=== PATIENT | female | born 1960 | race Caucasian/White ===

== ENCOUNTER 2019-11-18 15:44 | Emergency (ER) | payer OTHER, SELFPAY ==
--- NOTE | ~2019-11-18 | XR_ITS ---
EXAMINATION: XR chest 1V portable DATE: 11/18/2019 16:06 INDICATION: Altered mental status. TECHNIQUE: frontal view of the chest was obtained. COMPARISON: Chest radiograph dated 07/14/2019 FINDINGS: Skinfold projects over the lateral left mid to lower lung zone. No focal airspace opacities, pulmonar y edema, pleural effusion or pneumothorax. The cardiomediastinal silhouette is normal. Visualized bon es and soft tissues are unremarkable. IMPRESSION: 1. No acute cardiopulmonary disease. Reviewed, dictated and finalized at location A.
--- NOTE | ~2019-11-18 | CT_ITS ---
EXAMINATION: CT brain wo con DATE: 11/18/2019 16:06 INDICATION: Altered mental status TECHNIQUE: Computed tomography (CT) of the head was performed without intravenous contrast. Sagittal and coronal reconstructions were performed. The mA was adjusted according to patient size. Iterative reconstruction technique was employed. The dose-length product was 681.00 mGy-cm. COMPARISON: head CT dated 05/08/2019 FINDINGS: No acute intracranial hemorrhage, acute infarction or abnormal extra axial fluid collection. Ventricl es are normal and symmetric. No mass/mass effect. There is mild scattered white matter hypoattenuatio n consistent with chronic small vessel ischemic disease. The orbits, paranasal sinuses and mastoid ai r cells are normal. IMPRESSION: 1. Mild scattered white matter hypoattenuation consistent with chronic small vessel ischemic disease. No acute intracranial process. Reviewed, dictated and finalized at location A. IMPRESSION: 1. Mild scattered white matter hypoattenuation consistent with chronic small ve ssel ischemic disease. No acute intracranial process.
--- NOTE | 2019-11-18 15:45 | ECG_ITS ---
Measurements Intervals Calder Rate: 79 P: 78 DE: 132 QRS: 68 QRSD: 105 T: 73 QT: 386 QTc: 445 Interpretive Statements SINUS RHYTHM NORMAL ECG Electronically Signed On 11-19-2019 15:15:21 CDT by Reggie Benedict D.O.
[2019-11-18 15:53] VITALS: BP 158/111; PULSE 72; RESP 14; O2SAT 99
[2019-11-18 15:54] LABS: Glucose Point of Care 100 (65-105)
[2019-11-18 16:01] LABS: Basophils Absolute Auto 0.03 K/mm3 (0.00-0.10); Basophils Percent Auto 0.4 % (0.0-1.0); Eosinophils Absolute Auto 0.45 K/mm3 (0.02-0.50); Eosinophils Percent Auto 6.7 % (1.0-6.0); Hematocrit 33.4 % (35.0-49.0); Hemoglobin 11.3 g/dL (12.0-15.0); Immature Granulocyte Absolute 0.02 K/mm3 (0.00-0.00); Immature Granulocyte Percent A 0.3 % (0.0-0.0); Lymphocytes Absolute Auto 1.54 K/mm3 (1.10-4.50); Mean Corpuscular HGB Conc 33.8 g/dL (32.0-36.0); Mean Corpuscular Hemoglobin 31.2 pg (27.0-31.0); Mean Corpuscular Volume 92.3 fL (78.0-102.0); Mean Platelet Volume 10.4 fl (9.2-11.8); Monocytes Absolute Auto 0.46 K/mm3 (0.10-0.90); Monocytes Percent Auto 6.9 % (2.0-11.0); Neutrophils Absolute Auto 4.2 K/mm3 (1.7-7.2); Neutrophils Percent Auto 62.7 % (50.0-70.0); Platelet Count Result 193 K/mm3 (150-420); Red Blood Count 3.62 M/mm3 (4.20-5.40); White Blood Count 6.7 K/mm3 (4.8-10.8)
--- NOTE | 2019-11-18 16:01 | ED.GENADULT ---
HPI - General Adult General Chief complaint: Neuro Symptoms/Deficit Stated complaint: unconsious Time Seen by Provider: 11/18/19 15:45 History of Present Illness HPI narrative: Sunita is a 59-year-old woman with a past medical history of COPD, tobacco abuse, methamphetamine abuse, PAD, hypothyroidism, ARDS, (seizures that occurred after ARDS), multiple TIA that was brought into the emergency department unconscious by her daughter. She had diffuse whole body pain all through the night. It was getting worse so she asked her daughter to take her to the hospital. When getting into the car her eyes rolled into the back of her head and she went minimally conscious This was 20min before arriving to the ED (1525). Last methamphetamine abuse was last night per daughter. Related Data Home Medications Medication Instructions Recorded Confirmed thiamine mononitrate (vit B1) 100 mg PO DAILY 06/09/19 11/18/19 naproxen 500 mg tablet 500 mg PO BID 09/22/19 11/18/19 trazodone 100 mg tablet 100 mg PO .hs tablet 09/22/19 11/18/19 atorvastatin 40 mg tablet 40 mg PO DAILY 11/16/19 11/18/19 Allergies Allergy/AdvReac Type Severity Reaction Status Date / Time sulfamethoxazole Allergy Mild JOINT Verified 11/16/19 10:28 SWELLING clarithromycin Allergy Unknown Swelling Verified 11/16/19 10:28 gabapentin Allergy Unknown Joint pain Verified 11/16/19 10:28 trimethoprim Allergy Unknown JOINT Verified 11/16/19 10:28 SWELLING codeine AdvReac Unknown NAUSEA - Verified 11/16/19 10:28 CAN TAKE LORTAB Review of Systems Review of Systems: ROS unobtainable: Yes unobtainable due to mental status [facility] Past Medical History Medical History Chemical dependency Failure to thrive in adult Family History Family History Sibling Patient's sister is in good health Patient's brother is in good health Mother Family history of malignant neoplasm of breast in first degree relative, Onset Age: 26 Patient's mother is Father Patient's father is in good health Other Family history of alcoholism Family history of lung disease Family history of malignant neoplasm of male breast Family history of migraine headaches Family history of obesity Hypertension Social History Social History Smoking status: Former smoker Tobacco type: cigarettes Second hand tobacco smoke exposure: Yes Smoking end date: 08/02/15 Alcohol intake: never Substance use: current Substance use type: methamphetamine Exam Const: General: ill appearing Nutritional Appearance: thin Other: Alert and oriented x 0. Minimally responsive. HENMT: Other: Eyes were moving around rhythmically from side to side. If you yelled her name, occasionally she might look at you. Her tongue was protruding and moving side to side. Multiple abraisons on face. Eyes: Conjunctivae: conjunctivae normal Other: See above Neck: Neck: normal visual inspection Chest: Chest palpation & inspection: normal inspection of the chest Resp: Other: Clear breath sounds bilaterally, No tachypnea, no coughing Cardio: Rate: regular rate Rhythm: regular rhythm GI: GI Palp: Yes Soft to palpation and No Guarding due to palpation present (GI) Auscultation: normal bowel sounds Urinary Catheter: Urinary Catheter: patent and draining Skin: General skin exam: normal color Other: several scabbed over abraisons Neuro: Other: A&Ox0, Will open eye to verbal command, incomprehensible sounds, will squeeze hands on command Extrem: General: normal to inspection Psych: Appearance: disheveled Course Course Emergency Course: Sunita was brought back immediately. Ordered labs as below, CT head, and EKG as well as CXR. EXAMINATION: CT brain wo con DATE: 11/18/2019 16:06 INDICATION: Alter
[2019-11-18 16:09] LABS: Add Urine Microscopic? NO; Appearance Urine Clear (Clear); Bilirubin Urine Negative (Negative); Blood Urine Negative (Negative); Color Urine Yellow (Yellow); Glucose Urine UA Negative (Negative); Ketones Urine Negative (Negative); Leukocyte Esterase Ur Negative (Negative); Nitrate Urine Negative (Negative); Protein Urine Negative (Negative); Specific Grav Ur >= 1.030 (1.010-1.020); Urobilinogen Urine 0.2 mg/dL (0.2-1.0)
[2019-11-18 16:20] LABS: Prothrombin Time 10.5 Seconds (9.64-11.0)
[2019-11-18 16:23] LABS: Alanine Aminotransferase 34 U/L (14-59); Albumin Level 3.7 g/dL (3.4-5.0); Alkaline Phosphatase 94 U/L (46-116); Anion Gap 13.9 mmol/L (7-16); Aspartate Amino Transferase 48 U/L (15-37); Bilirubin,Total 0.4 mg/dL (0.00-1.00); Blood Urea Nitrogen 27 mg/dL (7-18); Calcium 8.8 mg/dL (8.5-10.1); Carbon Dioxide 26 mmol/L (21-32); Chloride 107 mmol/L (98-108); Creatine Kinase 791 U/L (26-192); Estimated Glomerular Filt Rate 47; Glucose 110 mg/dL (70-99); Lactic Acid 0.5 mmol/L (0.4-2.0); Lipase 120 U/L (73-393); Osmolality Calculated 302 mOsm/kg (285-295); Potassium 3.9 mmol/L (3.5-5.1); Sodium 143 mmol/L (136-145); Total Protein 5.9 g/dL (6.4-8.2)
[2019-11-18 16:27] LABS: Pregnancy On Board Control POS; Urine Pregnancy Test Negative
[2019-11-18 16:28] LABS: BNP 34 pg/mL (0-100)
[2019-11-18 16:28] LABS: Specific Gravity Ur > 1.030 (1.010-1.035)
[2019-11-18 16:30] LABS: Ammonia < 10 umol/L (11-32); Ethanol < 3 mg/dL (0-6); Troponin I < 0.02 ng/mL (0.00-0.056)
[2019-11-18 16:38] LABS: D Dimer 1.13 mg/L (0.19-0.50)
[2019-11-18 16:42] LABS: Amphetamine Screen Urine Positive (Negative); Barbiturate Screen Urine Negative (Negative); Benzodiazepines Screen Urine Negative (Negative); Cannabinoid Screen Urine Negative (Negative); Cocaine Screen Urine Negative (Negative); Methadone Screen Urine Negative (Negative); Opiate Screen Urine Negative (Negative); Phencyclidine Screen Urine Negative (Negative)
[2019-11-18 16:43] VITALS: BP 166/72; PULSE 68; RESP 14; O2SAT 99
[2019-11-18 16:59] LABS: Base Excess ABG -2.2 mmol/L (0-2); Oxygen Content ABG 13.4 %vol (16.0-22.0); Oxyhemoglobin 78.5 % (94-100); PCO2 ABG 35.8 mmHg (35-45); PO2 ABG 42.7 mmHg (80-90); Total Hemoglobin 12.2 g/dL; pH ABG 7.41 (7.35-7.45)
[2019-11-18 17:01] LABS: Device ROOM AIR; Modified Allen's Test Unable to perform; Site Drawn LEFT RADIAL
[2019-11-18 17:30] VITALS: BP 174/98; PULSE 74; O2SAT 99
[2019-11-18] MEDS: HALOPERIDOL LACTATE 5 MG/ML VIAL 2.5 MG IV PUSH (17:58)
[2019-11-18] MEDS: LORAZEPAM INJ 2 MG/ML VIAL 1 MG IV PUSH (18:01)
--- NOTE | 2019-11-18 18:08 | PC.NURSE ---
CHANGE IN STATUS: RN CALLED INTO ROOM D/T PATIENT NOW CLIMBING OUT OF BED, DISCONNECTED FROM MONITOR. PT SCREAMING THAT SHE WANTS TO TALK TO JOCE, HER . PT IS NOW ALERT X 3 GCS 15 - STATES THAT SHE WANTS TO SIGN OUT AMA - ERP TALKS TO PATIENT ABOUT THE URGENCY OF NEEDING NEUROLOGY CONSULT - CALL PLACED TO DAUGHTER FOR CONSULT - ATIVAN AND HALDOL GIVEN FOR PATIENT AGITATION -
[2019-11-18 18:45] VITALS: BP 148/105; PULSE 96; O2SAT 99
== END 2019-11-18 19:15 | disposition short-term general hospital (02) ==
PROVIDERS: Emergency Provider Family Medicine
DX: F15.129 Other stimulant abuse with intoxication, unspecified (principal)
CPT/HCPCS: 36415; 36600; 70450; 71045; 80053; 80307; 81003; 81025; 82140; 82550; 82805; 83605; 83690; 83880; 84484; 85025; 85380; 85610; 87040; 93005; 96374; 96375; 99283; 99285; J1630; J2060

== ENCOUNTER 2020-01-16 14:48 | Outpatient (CLI) | payer OTHER, SELFPAY ==
--- NOTE | ~2020-01-16 | XR_ITS ---
EXAMINATION:XR cervical spine 4-5V DATE: 01/16/2020 15:22 INDICATION: Cervical radiculopathy TECHNIQUE: AP, lateral, lateral swimmers and odontoid views of the cervical spine are provided. COMPARISON: 12/07/2014 FINDINGS: The odontoid is intact. No fracture is identified. Again noted are changes of anterior fusi on at C6-7. There is severe loss of intervertebral disc space height at C5-6. Moderate facet osteoar thritis is noted at C7-T1. There is mild loss of intervertebral disc space height at C4-5. Prevertebr al soft tissues are normal. IMPRESSION: 1. Anterior fusion at C6-7 and severe loss of intervertebral disc space height at C5-6 without acute findings or significant interval change. Reviewed, dictated and finalized at location F.
== END 2020-01-16 14:49 | disposition home or self-care (01) ==
PROVIDERS: PCP Internal Medicine; Visit Provider Physician Assistant
DX: M54.12 Radiculopathy, cervical region (principal); Z98.1 Arthrodesis status
CPT/HCPCS: 72050

== ENCOUNTER 2020-11-27 19:05 | Emergency (ER) | payer OTHER, SELFPAY ==
[2020-11-27 19:15] VITALS: BP 185/110; PULSE 100; RESP 17; TEMP 37.2; O2SAT 99
[2020-11-27 19:33] VITALS: BP 185/110; PULSE 100; RESP 17; TEMP 37.2; O2SAT 99
--- NOTE | 2020-11-27 19:50 | ED.SKABFB ---
HPI - Skin/Abscess/Foreign Bdy General Chief complaint: Extremity Injury, Upper Stated complaint: left wrist pain and mersa on face Source: patient, RN notes reviewed and old records reviewed Mode of arrival: ambulatory Limitations: no limitations History of Present Illness HPI narrative: 60 year old female presents to express care with complaint of bruising and swelling of skin to the inner aspect of her left wrist with full mobility of her wrist and left hand. Patient states that she is unaware of any injury to her left wrist. Patient states that the inner aspect of her left wrist is tender to palpation rates her pain as 7/10 described as throbbing. Patient also voices concern about numerous scabbed lesions on her face around and on top of her nasal region voices history of MRSA. Patient is tearful voices history of former alcohol abuse, states has been dry for 23 years. Admits to long history of methamphetamine use states last used 7 days ago. States that her daughter 2 weeks ago from drug overdose. Patient's blood pressure is elevated states that she has not taken her medication today, has long history of hypertension also. MD complaint: lesion (facial lesions) and other (pain and swelling left inner wrist) Onset (ago): week(s) (1) Tetanus up to date: unsure Location: face Severity: severe Severity scale (1-10): 1 (to left inner wrist) Quality: other (throbbing) Pain Consistency: constant Relieving factors: none Exacerbating factors: movement Associated symptoms: denies other symptoms Treatments prior to arrival: none Related Data Home Medications Medication Instructions Recorded Confirmed thiamine mononitrate (vit B1) 100 mg PO DAILY 06/09/19 10/14/20 naproxen 500 mg tablet 500 mg PO BID 09/22/19 11/27/20 ergocalciferol (vitamin D2) 1,250 mcg PO DIRECTED 11/27/20 11/27/20 Allergies Allergy/AdvReac Type Severity Reaction Status Date / Time sulfamethoxazole Allergy Mild JOINT Verified 11/27/20 19:22 SWELLING clarithromycin Allergy Unknown Swelling Verified 11/27/20 19:22 gabapentin Allergy Unknown Joint pain Verified 11/27/20 19:22 trimethoprim Allergy Unknown JOINT Verified 11/27/20 19:22 SWELLING codeine AdvReac Unknown NAUSEA - Verified 11/27/20 19:22 CAN TAKE LORTAB Review of Systems Review of Systems: Narrative: CONSTITUTIONAL: Denies fever, chills, or sweats. EYES: Denies visual changes, redness, or discharge. ENT: Denies rhinorrhea, congestion, sore throat, or otalgia. CARDIOVASCULAR: Denies chest pain, palpitations, or edema. RESPIRATORY: Denies cough or dyspnea. GASTROINTESTINAL: Denies abdominal pain, nausea, vomiting, or diarrhea. GENITOURINARY: Denies dysuria or hematuria. SKIN: Positive for scabbed lesions to her face, around nasal region in various stages of healing, history of MRSA MUSCULOSKELETAL: Denies back pain, joint pain, or myalgia.positive swelling and bruising to left inner wrist, no warmth or any lesions noted, full ROM wrist NEUROLOGIC: Denies headache, numbness, or weakness. PSYCHIATRIC:Positive for anxiety or depression. All systems reviewed & are unremarkable except as noted in HPI and below PMFSH Past Medical History Medical History (Updated 12/06/20 @ 19:47 by Pretty Pierre NP) Anxiety and depression Chemical dependency Failure to thrive in adult Hypertension Hypothyroidism Pneumonia Pulmonary emphysema Surgical History Surgical History (Updated 12/06/20 @ 19:48 by Pretty Pierre NP) H/O neck surgery C6-7 fusion Hx of cholecystectomy Total knee replacement status Family History Family History (Updated 12/06/20 @ 12:08 by Pretty Pierre NP) Sibling Patient's sister is in good health Patient's brother is in good health Depression Mother Family history of malignant neoplasm of breast in first degree relative, Onset Age: 26 Patient's mother is Father Patient's father is in good health Other Family
== END 2020-11-27 20:11 | disposition home or self-care (01) ==
PROVIDERS: Emergency Provider Registered Nurse; PCP Internal Medicine
DX: S60.212A Contusion of left wrist, initial encounter (principal); X58.XXXA Exposure to other specified factors, initial encounter; L98.9 Disorder of the skin and subcutaneous tissue, unspecified; I10 Essential (primary) hypertension; E03.9 Hypothyroidism, unspecified; J43.9 Emphysema, unspecified
CPT/HCPCS: 99213; G0463

== ENCOUNTER 2021-01-26 17:42 | Emergency (ER) | payer OTHER, SELFPAY ==
--- NOTE | ~2021-01-26 | XR_ITS ---
EXAMINATION: XR femur LT min 2V DATE: 01/26/2021 18:21 INDICATION: Left thigh injury and pain. TECHNIQUE: 2 views of left femur on 4 radiographs were obtained. COMPARISON: None. FINDINGS: Bone alignment is normal. No fracture. There is mild osteoarthritis of left hip. There is a total left knee arthroplasty in near-anatomic alignment. No periprosthetic lucency to suggest loosen ing or infection. There is a small knee joint effusion. IMPRESSION: 1. Mild left hip osteoarthritis. 2. Total left knee arthroplasty in near-anatomic alignment. 3. Small left knee joint effusion. Reviewed, dictated and finalized at location A.
[2021-01-26 17:50] VITALS: BP 182/123; PULSE 105; RESP 16; TEMP 37.1; O2SAT 100
--- NOTE | 2021-01-26 18:28 | ED.GENADULT ---
HPI - General Adult General Chief complaint: Extremity Injury, Lower Stated complaint: knot on lt hip Related Data Home Medications Medication Instructions Recorded Confirmed naproxen 500 mg tablet 500 mg PO BID 09/22/19 01/26/21 ergocalciferol (vitamin D2) 1,250 mcg PO DIRECTED 11/27/20 01/26/21 Allergies Allergy/AdvReac Type Severity Reaction Status Date / Time sulfamethoxazole Allergy Mild JOINT Verified 01/26/21 18:00 SWELLING clarithromycin Allergy Unknown Swelling Verified 01/26/21 18:00 gabapentin Allergy Unknown Joint pain Verified 01/26/21 18:00 trimethoprim Allergy Unknown JOINT Verified 01/26/21 18:00 SWELLING codeine AdvReac Unknown NAUSEA - Verified 01/26/21 18:00 CAN TAKE LORTAB PMFSH Past Medical History Medical History (Updated 01/26/21 @ 18:33 by EARLENE Santiago) Anxiety and depression Chemical dependency COPD (chronic obstructive pulmonary disease) Diverticulosis Failure to thrive in adult Hypertension Hypothyroidism JULIAN (obstructive sleep apnea) Pancreatitis Peripheral neuropathy Pneumonia Pulmonary emphysema Pure hypercholesterolemia Seizures TIA (transient ischemic attack) Tracheostomy dependence Surgical History Surgical History (Updated 01/26/21 @ 18:33 by EARLENE Santiago) H/O neck surgery C6-7 fusion Hx of cholecystectomy Hx of tonsillectomy Secondary to sepsis/ARDS Total knee replacement status Family History Family History (Updated 12/06/20 @ 12:08 by Pretty Pierre NP) Sibling Patient's sister is in good health Patient's brother is in good health Depression Mother Family history of malignant neoplasm of breast in first degree relative, Onset Age: 26 Patient's mother is Father Patient's father is in good health Other Family history of alcoholism Family history of lung disease Family history of malignant neoplasm of male breast Family history of migraine headaches Family history of obesity Hypertension Social History Social History Smoking status: Current every day smoker Tobacco type: cigarettes Second hand tobacco smoke exposure: Yes Smoking end date: 08/02/15 Alcohol intake: never Substance use: current Substance use type: methamphetamine Gender identity (if verbalized by the patient): Female Exam Narrative: Exam Narrative: GENERAL: Well-appearing, well-nourished, and in no acute distress. HEAD: Normocephalic, atraumatic. EYES: PERRLA and EOMI. ENT: Nares clear, no rhinorrhea or epistaxis. Mucous membranes moist. NECK: Supple. No lymphadenopathy CHEST: Clear to auscultation. No respiratory distress. HEART: Regular rate and rhythm. No murmur heard. Normal peripheral pulses. ABDOMEN: Soft, nontender, nondistended, normal active bowel sounds. EXTREMITIES: Normal range of motion. No edema. SKIN: Warm, dry, no rash. NEURO: No focal deficits. Alert and oriented x3. Course Vital Signs Vital signs: Vital Signs Temperature 37.1 C 01/26/21 17:50 Pulse Rate 105 H 01/26/21 17:50 Respiratory Rate 16 01/26/21 17:50 Blood Pressure 182/123 H 01/26/21 17:50 Pulse Oximetry 100 01/26/21 17:50 Temperature 37.1 C 01/26/21 17:50 Pulse Rate 105 H 01/26/21 17:50 Respiratory Rate 16 01/26/21 17:50 Blood Pressure 182/123 H 01/26/21 17:50 Pulse Oximetry 100 01/26/21 17:50 Vital signs reviewed Blood pressure retaken manually was 130/98 Medical Decision Making Differential Diagnosis Differential Diagnosis: Differential diagnosis: Posterior hip pain, joint dysfunction, lumbar radiculopathy, impingement, fracture, hip dislocation, osteoarthritis, bursitis. Vital Signs Vital Signs: Vital Signs Temperature 37.1 C 01/26/21 17:50 Pulse Rate 105 H 01/26/21 17:50 Respiratory Rate 16 01/26/21 17:50 Blood Pressure 182/123 H 01/26/21 17:50 Pulse Oximetry 100 01/26/21 17:50
[2021-01-26 18:33] VITALS: BP 130/98
--- NOTE | 2021-01-26 18:35 | ED.GENADULT ---
HPI - General Adult General Chief complaint: Extremity Injury, Lower Stated complaint: knot on lt hip Time Seen by Provider: 01/26/21 18:35 Source: patient Mode of arrival: ambulatory Limitations: no limitations History of Present Illness HPI narrative: 60-year-old female patient presents to the [facility] with complaints of left hip pain for the past 2 and half weeks. Patient states she fell onto her left hip about 2 and half weeks ago and has had a knot there. Patient is able to walk and bear weight onto the left hip. Patient states she has tried ice for the first 3 days and then heat which the heat she felt like made it worse. Patient also reports that she has had an infection on her nose which she is supposed to see infectious disease for on February 06 but requesting an antibiotic for it. Patient states she was told it was MRSA. Related Data Home Medications Medication Instructions Recorded Confirmed naproxen 500 mg tablet 500 mg PO BID 09/22/19 01/26/21 ergocalciferol (vitamin D2) 1,250 mcg PO DIRECTED 11/27/20 01/26/21 Allergies Allergy/AdvReac Type Severity Reaction Status Date / Time sulfamethoxazole Allergy Mild JOINT Verified 01/26/21 18:00 SWELLING clarithromycin Allergy Unknown Swelling Verified 01/26/21 18:00 gabapentin Allergy Unknown Joint pain Verified 01/26/21 18:00 trimethoprim Allergy Unknown JOINT Verified 01/26/21 18:00 SWELLING codeine AdvReac Unknown NAUSEA - Verified 01/26/21 18:00 CAN TAKE LORTAB Review of Systems Review of Systems: Narrative: CONSTITUTIONAL: Denies fever, chills, or sweats. EYES: Denies visual changes, redness, or discharge. ENT: Denies rhinorrhea, congestion, sore throat, or otalgia. CARDIOVASCULAR: Denies chest pain, palpitations, or edema. RESPIRATORY: Denies cough or dyspnea. GASTROINTESTINAL: Denies abdominal pain, nausea, vomiting, or diarrhea. Positive left hip pain GENITOURINARY: Denies dysuria or hematuria. SKIN: Positive rash to nose, denies itching. MUSCULOSKELETAL: Denies back pain, joint pain, or myalgia. NEUROLOGIC: Denies headache, numbness, or weakness. PSYCHIATRIC: Denies anxiety or depression. [facility] Past Medical History Medical History Anxiety and depression Chemical dependency COPD (chronic obstructive pulmonary disease) Diverticulosis Failure to thrive in adult Hypertension Hypothyroidism JULIAN (obstructive sleep apnea) Pancreatitis Peripheral neuropathy Pneumonia Pulmonary emphysema Pure hypercholesterolemia Seizures TIA (transient ischemic attack) Tracheostomy dependence Surgical History Surgical History H/O neck surgery C6-7 fusion Hx of cholecystectomy Hx of tonsillectomy Secondary to sepsis/ARDS Total knee replacement status Family History Family History Sibling Patient's sister is in good health Patient's brother is in good health Depression Mother Family history of malignant neoplasm of breast in first degree relative, Onset Age: 26 Patient's mother is Father Patient's father is in good health Other Family history of alcoholism Family history of lung disease Family history of malignant neoplasm of male breast Family history of migraine headaches Family history of obesity Hypertension Social History Social History Smoking status: Current every day smoker Tobacco type: cigarettes Second hand tobacco smoke exposure: Yes Smoking end date: 08/02/15 Alcohol intake: never Substance use: current Substance use type: methamphetamine Gender identity (if verbalized by the patient): Female Comments At the time of my signature I agree with nursing past medical history, surgical, social, and family history. There is no relevant family history
== END 2021-01-26 18:53 | disposition home or self-care (01) ==
PROVIDERS: Emergency Provider Nurse Practitioner Family; PCP Internal Medicine
DX: S70.02XA Contusion of left hip, initial encounter (principal); W19.XXXA Unspecified fall, initial encounter; R21 Rash and other nonspecific skin eruption; F17.210 Nicotine dependence, cigarettes, uncomplicated; F41.9 Anxiety disorder, unspecified; F32.9 Major depressive disorder, single episode, unspecified; J44.9 Chronic obstructive pulmonary disease, unspecified; I10 Essential (primary) hypertension; E03.9 Hypothyroidism, unspecified; G47.33 Obstructive sleep apnea (adult) (pediatric); G62.9 Polyneuropathy, unspecified; Z86.711 Personal history of pulmonary embolism; E78.00 Pure hypercholesterolemia, unspecified; Z86.73 Personal history of transient ischemic attack (TIA), and cerebral infarction without residual deficits; Z93.0 Tracheostomy status; Z96.659 Presence of unspecified artificial knee joint
CPT/HCPCS: 73552; 99213; G0463

== ENCOUNTER 2021-05-08 10:53 | Outpatient (CLI) | payer OTHER, SELFPAY ==
--- NOTE | ~2021-05-08 | XR_ITS ---
XR cervical spine 4-5V DATE: 05/08/2021 11:16 INDICATION: Neck pain. Chronic left neck pain. No known injury. TECHNIQUE: AP, open-mouth, lateral, swimmer views COMPARISON: 01/16/2020 cervical spine FINDINGS: There is straightening of the cervical spine. C1 and C2 are normally aligned and the odontoid process is intact. There is 1.4 mm anterolisthesis at C3-4. There is mild degenerative disc disease at C4-5. There is severe degenerative disc disease and 1 mm retrolisthesis at C5-6. There is chronic fusion at the C6 and C7 vertebral bodies. No fracture or dislocation or locked facet or prevertebral soft tissue swelling. IMPRESSION: Straightening No fracture or dislocation or locked facet 1.4 mm anterolisthesis at C3-4 Mild degenerative disc disease at C4-5 Severe degenerative disc disease and 1 mm retrolisthesis at C5-6 Chronic fusion of C6-C7 vertebral bodies Reviewed, dictated and finalized at location A.
== END 2021-05-08 10:54 | disposition home or self-care (01) ==
LOC: ANHIMG 10:57
PROVIDERS: PCP Internal Medicine; Visit Provider Physician Assistant
DX: M50.321 Other cervical disc degeneration at C4-C5 level (principal); Z98.1 Arthrodesis status; M50.322 Other cervical disc degeneration at C5-C6 level
CPT/HCPCS: 72050

== ENCOUNTER 2021-05-29 14:43 | Outpatient (CLI) | payer OTHER, SELFPAY ==
[2021-05-29 15:14] LABS: Hematocrit 40.4 % (37.0-47.0); Hemoglobin 13.3 g/dL (12.0-15.0); Mean Corpuscular HGB Conc 32.9 g/dl (32-36); Mean Corpuscular Hemoglobin 30.6 pg (26-34); Mean Corpuscular Volume 92.9 fl (80-100); Mean Platelet Volume 9.5 fl (7.4-10.4); Platelet Count Result 247 k/mm3 (150-375); Red Blood Count 4.35 M/mm3 (4.2-5.4); Red Cell Distribution Width 12.7 % (11.5-14.5)
[2021-05-29 15:30] LABS: Alanine Aminotransferase 19 U/L (4-35); Albumin Level 4.4 g/dL (3.5-5.1); Alkaline Phosphatase 123 U/L (38-126); Anion Gap 9 mmol/L (8-16); Aspartate Amino Transferase 29 U/L (14-36); Bilirubin,Total 0.5 mg/dL (0.2-1.3); Blood Urea Nitrogen 15 mg/dL (7-17); Calcium 9.3 mg/dL (8.4-10.2); Carbon Dioxide 31 mmol/L (22-30); Chloride 100 mmol/L (98-107); Cholesterol 176 mg/dL (0-200); Estimated Glomerular Filt Rate > 60; Glucose 87 mg/dL (65-110); HDL Direct 72 mg/dL; Potassium 3.4 mmol/L (3.4-5.0); Sodium 140 mmol/L (137-145); Triglycerides 114 mg/dL (<150)
[2021-05-29 15:34] LABS: CRP < 0.5 mg/dL (<1.0)
[2021-05-29 15:41] LABS: LDL Cholesterol Direct 81 mg/dL
[2021-05-29 15:41] LABS: Erythrocyte Sedimentation Rate 17 mm/hr (0-20)
[2021-05-29 15:48] LABS: Free T4 Free Thyroxine 0.62 ng/mL (0.78-2.19)
[2021-05-29 16:40] LABS: Folic Acid > 20.0 ng/mL (2.76->20)
== END 2021-05-29 14:44 | disposition home or self-care (01) ==
LOC: ANHLAB 14:46
PROVIDERS: PCP Internal Medicine; Referring Provider Physician Assistant Surgical; Visit Provider Physician Assistant
DX: R53.83 Other fatigue (principal); E03.9 Hypothyroidism, unspecified; E78.00 Pure hypercholesterolemia, unspecified; T85.698A Other mechanical complication of other specified internal prosthetic devices, implants and grafts, initial encounter; T84.039A Mechanical loosening of unspecified internal prosthetic joint, initial encounter
CPT/HCPCS: 36415; 80053; 80061; 82607; 82746; 84439; 84443; 85027; 85652; 86140

== ENCOUNTER 2021-06-06 13:34 | Outpatient (CLI) | payer OTHER, SELFPAY ==
--- NOTE | ~2021-06-06 | US_ITS ---
EXAMINATION: US knee asp inj w image LT DATE: 06/06/2021 15:03 INDICATION: Left knee arthroplasty presenting with left knee pain. TECHNIQUE: A time-out was performed to verify the patient's name, date of , and procedure to b e performed. The procedure including the risks, benefits, and alternatives was discussed with the pat ient. Risks discussed included bleeding and infection. The patient understood the risks and agreed to proceed. The skin overlying the left knee joint was prepped and draped in usual sterile fashion. A nesthetic was administered with 1% lidocaine subcutaneously. A 19 G needle was advanced under sonogr aphic guidance into the joint. 13 mL of clear light yellow fluid was aspirated and sent to the lab fo r studies as ordered by the referring physician. The needle was removed and the entry site was clean ed and dressed. There were no immediate complications. FINDINGS: Ultrasound images demonstrate the needle advanced into a small amount of joint fluid at the lateral side of the suprapatellar pouch. IMPRESSION: 1. Successful left knee joint aspiration yielding 13 mL of clear yellow fluid which was sent to the l ab for studies as ordered by the referring physician. Reviewed, dictated and finalized at location A. IMPRESSION: 1. Successful left knee joint aspiration yielding 13 mL of clear yellow fluid w hich was sent to the lab for studies as ordered by the referring physician.
[2021-06-06 16:19] LABS: Appearance Synovial Fluid Hazy (Clear); Color Synovial Fluid Yellow (Colorless); Source Synovial Fluid Synovial fluid
[2021-06-06 16:20] LABS: Nucleated Cell Synovial Fluid 118 /uL (0-200); RBC Synovial Fluid 295 /uL (0-0)
[2021-06-06 16:54] LABS: Lymphocytes Synovial Fluid 52 %; Monocytes Synovial Fluid 15 %; Neutrophils Synovial Fluid 33 % (0-25)
== END 2021-06-06 13:35 | disposition home or self-care (01) ==
PROVIDERS: PCP Internal Medicine; Visit Provider Physician Assistant Surgical
DX: Z96.652 Presence of left artificial knee joint (principal)
CPT/HCPCS: 20611; 87070; 87075; 87205; 89051

== ENCOUNTER 2021-07-09 19:19 | Emergency (ER) | payer OTHER, SELFPAY ==
--- NOTE | 2021-07-09 19:21 | ED.SKABFB ---
HPI - Skin/Abscess/Foreign Bdy General Chief complaint: Skin/Abscess/Foreign Body Stated complaint: Skin Sore Time Seen by Provider: 07/09/21 19:21 Source: patient and RN notes reviewed History of Present Illness HPI narrative: Patient is a 60-year-old female who presents the urgent care with complaints of blisters that come and go around the mouth. Patient states that they have been there for approximately 1 year but have worsened over the last 2 weeks. Patient states that she does see a parachute mender as well as following up with her PCP and she was told to go to the urgent care. Patient does have a history of staph. States that her parachute mender is put her on antibiotics multiple times but she was seen there in the last couple months and they did not place her on antibiotics at that time. No other acute complaints. No acute distress noted. Patient read the plan of care. Some parts of this dictation were generated by voice recognition software and may contain typographical and/or grammatical inaccuracies. Related Data Home Medications Medication Instructions Recorded Confirmed amlodipine 2.5 mg tablet 2.5 mg PO DAILY 05/08/21 05/27/21 cyclobenzaprine 10 mg PO HS PRN 07/09/21 07/09/21 diclofenac sodium 75 mg PO BID 07/09/21 07/09/21 Allergies Allergy/AdvReac Type Severity Reaction Status Date / Time sulfamethoxazole Allergy Mild JOINT Verified 05/26/21 14:15 SWELLING clarithromycin Allergy Unknown Swelling Verified 05/26/21 14:15 gabapentin Allergy Unknown Joint pain Verified 05/26/21 14:15 trimethoprim Allergy Unknown JOINT Verified 05/26/21 14:15 SWELLING codeine AdvReac Unknown NAUSEA - Verified 05/26/21 14:15 CAN TAKE LORTAB Review of Systems Review of Systems: CONSTITUTIONAL: Denies fever, chills, or sweats. EYES: Denies visual changes, redness, or discharge. ENT: Denies rhinorrhea, congestion, sore throat, or otalgia. CARDIOVASCULAR: Denies chest pain, palpitations, or edema. RESPIRATORY: Denies cough or dyspnea. GASTROINTESTINAL: Denies abdominal pain, nausea, vomiting, or diarrhea. GENITOURINARY: Denies dysuria or hematuria. SKIN: Reports of blisters that come and go around the mouth MUSCULOSKELETAL: Denies back pain, joint pain, or myalgia. NEUROLOGIC: Denies headache, numbness, or weakness. All other systems reviewed are negative, except as documented in HPI. [facility] Past Medical History Medical History Anxiety and depression Chemical dependency COPD (chronic obstructive pulmonary disease) Diverticulosis Failure to thrive in adult Hypertension Hypothyroidism JULIAN (obstructive sleep apnea) Pancreatitis Peripheral neuropathy Pneumonia Pulmonary emphysema Pure hypercholesterolemia Seizures TIA (transient ischemic attack) Tracheostomy dependence Surgical History Surgical History H/O neck surgery C6-7 fusion Hx of cholecystectomy Hx of tonsillectomy Secondary to sepsis/ARDS Total knee replacement status Family History Family History Sibling Patient's sister is in good health Patient's brother is in good health Depression Mother Family history of malignant neoplasm of breast in first degree relative, Onset Age: 26 Patient's mother is Father Patient's father is in good health Other Family history of alcoholism Family history of lung disease Family history of malignant neoplasm of male breast Family history of migraine headaches Family history of obesity Hypertension Social History Social History Smoking status: Former smoker Tobacco type: cigarettes Second hand tobacco smoke exposure: Yes Smoking end date: 08/02/15 Alcohol intake: never Substance use: current Substance use type: methamphetamine
[2021-07-09 19:29] VITALS: BP 189/123; PULSE 107; RESP 20; TEMP 36.7; O2SAT 99
[2021-07-09 19:41] VITALS: BP 189/123; PULSE 107; RESP 20; TEMP 36.7; O2SAT 99
== END 2021-07-09 19:40 | disposition home or self-care (01) ==
PROVIDERS: Emergency Provider Nurse Practitioner Family; PCP Internal Medicine
DX: L01.00 Impetigo, unspecified (principal); Z87.891 Personal history of nicotine dependence; J44.9 Chronic obstructive pulmonary disease, unspecified; I10 Essential (primary) hypertension; E03.9 Hypothyroidism, unspecified; G47.33 Obstructive sleep apnea (adult) (pediatric); G62.9 Polyneuropathy, unspecified; E78.00 Pure hypercholesterolemia, unspecified; Z86.73 Personal history of transient ischemic attack (TIA), and cerebral infarction without residual deficits; Z93.0 Tracheostomy status; Z96.659 Presence of unspecified artificial knee joint
CPT/HCPCS: 99213; G0463

== ENCOUNTER 2021-07-18 14:53 | Outpatient (CLI) | payer OTHER, SELFPAY ==
--- NOTE | ~2021-07-18 | CT_ITS ---
EXAMINATION: CT knee LT wo con DATE: 07/18/2021 15:36 INDICATION: Left knee pain. Mechanical complication of implant. TECHNIQUE: Computed tomography (CT) of the left knee was performed without intravenous contrast. Auto mated exposure control and iterative reconstruction technique were employed. The dose-length product was 650.48 mGy-cm. COMPARISON: Left femur radiographs 01/26/2021, left knee radiographs 05/29/2009 FINDINGS: There is a total left knee arthroplasty with patellar resurfacing in near-anatomic alignmen t. There is cystic change in medial femoral condyle abutting the femoral component, both anteriorly a nd posteriorly. No fracture. There is a small knee joint effusion. There is a small Ruelas's cyst. The re is a 3.1 x 1.0 x 2.7 cm fluid collection deep to medial head of gastrocnemius muscle in the calf. IMPRESSION: 1. Total left knee arthroplasty in near-anatomic alignment. 2. Cystic change in medial femoral condyle abutting the femoral component. It is not clear if these f indings represent subchondral cysts from before the arthroplasty or osteolysis since the arthroplasty . Comparison with a preoperative MRI would be useful if one was performed elsewhere. 3. Small knee joint effusion. 4. Small Ruelas's cyst. 5. 3.1 x 1.0 x 2.7 cm fluid collection deep to medial head of gastrocnemius muscle in the calf, likel y a subacute hematoma. Reviewed, dictated and finalized at location A. TREASURY CONSULTANT IMPRESSION: 1. Total left knee arthroplasty in near-anatomic alignment. 2. Cystic change in medial femoral condyle abutting the femoral component. It i s not clear if these findings represent subchondral cysts from before the arthr oplasty or osteolysis since the arthroplasty. Comparison with a preoperative MR I would be useful if one was performed elsewhere. 3. Small knee joint effusion. 4. Small Ruelas's cyst. 5. 3.1 x 1.0 x 2.7 cm fluid collection deep to medial head of gastrocnemius mus sabrina in the calf, likely a subacute hematoma.
== END 2021-07-18 14:54 | disposition home or self-care (01) ==
LOC: ANHIMG 14:53
PROVIDERS: PCP Internal Medicine; Visit Provider Orthopaedic Surgery
DX: T85.698A Other mechanical complication of other specified internal prosthetic devices, implants and grafts, initial encounter (principal); T84.039A Mechanical loosening of unspecified internal prosthetic joint, initial encounter; M25.462 Effusion, left knee; M71.22 Synovial cyst of popliteal space [Baker], left knee; Z96.652 Presence of left artificial knee joint
CPT/HCPCS: 73700

== ENCOUNTER 2021-08-12 17:46 | Outpatient (CLI) | payer OTHER, SELFPAY ==
--- NOTE | ~2021-08-12 | US_ITS ---
EXAMINATION: US venous doppler [facility] DATE: 08/12/2021 18:08 INDICATION: Left lower limb pain TECHNIQUE: Perrin scale images without and with compression and Doppler images of the left lower extrem ity veins were obtained. COMPARISON: None FINDINGS: The left common femoral vein, profunda femoral vein, femoral vein, popliteal vein, peroneal trunk, posterior tibial veins, and greater saphenous vein are patent. IMPRESSION: 1. Patent left lower extremity veins. No evidence of deep venous thrombosis. Reviewed, dictated and finalized at location F. LOGY TEACHER
== END 2021-08-12 17:47 | disposition home or self-care (01) ==
PROVIDERS: PCP Internal Medicine; Visit Provider Orthopaedic Surgery
DX: I82.402 Acute embolism and thrombosis of unspecified deep veins of left lower extremity (principal)
CPT/HCPCS: 93971

== ENCOUNTER 2021-08-20 08:52 | Outpatient (CLI) | payer OTHER, SELFPAY ==
--- NOTE | ~2021-08-20 | NM_ITS ---
EXAMINATION: NM bone 3 phase DATE: 08/20/2021 13:12 INDICATION: Mechanical complication of implant at the left knee TECHNIQUE: 25.65 mCi Tc-99m HDP by intravenous route. Scintigrams of the bilateral knees were obtain ed in angiographic, blood pool, and delayed phases. COMPARISON: CT dated 07/18/2021 FINDINGS: There is normal relatively symmetric distribution of activity on the angiographic phase images. Photo penic defect at the left knee corresponding to a total knee arthroplasty. There is mild accumulation of activity in the left medial femoral condyle where there is corresponding cystlike changes with thi n sclerotic margins on the prior CT. This persists on the delayed images. There is normal pattern and degree of uptake along the margins of the left tibial and patellar components and lateral side of th e femoral component of the arthroplasty. IMPRESSION: 1. Left total knee arthroplasty with mild to moderate accumulation of activity at the medial femoral condyle on the immediate blood pool and delayed images in the region of the previous noted prominent cystic changes. No corresponding abnormal activity on the angiographic phase images to suggest signi ficant associated inflammation such as with fracture or infection. Reviewed, dictated and finalized at location A. PUNCH TEACHER IMPRESSION: 1. Left total knee arthroplasty with mild to moderate accumulation of activity at the medial femoral condyle on the immediate blood pool and delayed images i n the region of the previous noted prominent cystic changes. No corresponding a bnormal activity on the angiographic phase images to suggest significant associ ated inflammation such as with fracture or infection.
== END 2021-08-20 08:53 | disposition home or self-care (01) ==
PROVIDERS: PCP Internal Medicine; Visit Provider Orthopaedic Surgery
DX: T85.698A Other mechanical complication of other specified internal prosthetic devices, implants and grafts, initial encounter (principal); T84.053A Periprosthetic osteolysis of internal prosthetic left knee joint, initial encounter
CPT/HCPCS: 78315; A9561

== ENCOUNTER 2022-02-21 07:19 | Outpatient (CLI) | payer OTHER, SELFPAY ==
--- NOTE | ~2022-02-21 | MR_ITS ---
EXAMINATION: MR knee RT wo con DATE: 02/21/2022 08:40 INDICATION: Right knee pain. TECHNIQUE: Magnetic resonance imaging (MRI) of the right knee was performed without intravenous contr ast. Sequences included axial PD-weighted FS FSE, coronal PD-weighted FSE and PD-weighted FS FSE, sag ittal PD-weighted FSE, and sagittal T2-weighted FS FSE. COMPARISON: None. FINDINGS: Medial compartment: Intact meniscus. Mild diffuse cartilage thinning and osteophytosis. Lateral compartment: Intact meniscus. Mild diffuse cartilage thinning and osteophytosis. Patellofemoral compartment: Mild partial thickness cartilage abnormality on the medial facet. Intact retinacula. Ligaments and tendons: Flexor and extensor tendons are intact. Fluid: No significant joint effusion. Osseous/other: Sclerotic focus in the tibial metaphysis, with surrounding hyperintense signal, may reflect focal bon e infarct or atypical bone island. Enchondroma considered less likely. IMPRESSION: 1. No internal derangement. 2. Sclerotic tibial metaphyseal lesion, nonaggressive appearance, however right knee radiographs woul d be helpful for a more thorough evaluation. Reviewed, dictated and finalized at location K. IMPRESSION: 1. No internal derangement. 2. Sclerotic tibial metaphyseal lesion, nonaggressive appearance, however right knee radiographs would be helpful for a more thorough evaluation.
== END 2022-02-21 07:20 | disposition home or self-care (01) ==
PROVIDERS: PCP Internal Medicine; Visit Provider Orthopaedic Surgery
DX: M25.561 Pain in right knee (principal)
CPT/HCPCS: 73721

== ENCOUNTER 2022-05-18 12:33 | Emergency (ER) | payer OTHER, SELFPAY ==
[2022-05-18 13:24] VITALS: BP 125/87; PULSE 80; RESP 20; TEMP 36.6; O2SAT 99
--- NOTE | 2022-05-18 14:21 | ED.GENADULT ---
HPI - General Adult General Chief complaint: Dental/Oral Stated complaint: swollen lips w/blisters Time Seen by Provider: 05/18/22 14:21 Source: patient Mode of arrival: ambulatory Limitations: no limitations History of Present Illness HPI narrative: 61y/o female resented for c/o painful lip lesions for one week. Endorses redness, swelling and burning to the upper and lower lips, with crusted lesions to sides of lower lip. History of HSV1. Has reduced cigarette smoking due to pain, hx methamphetamine use, last time 2 months ago. denies change to detergent, soap, meds, etc. Denies any other complaints or concerns. Related Data Allergies Allergy/AdvReac Type Severity Reaction Status Date / Time sulfamethoxazole Allergy Mild JOINT Verified 05/18/22 13:58 SWELLING clarithromycin Allergy Unknown Swelling Verified 05/18/22 13:58 gabapentin Allergy Unknown Joint pain Verified 05/18/22 13:58 trimethoprim Allergy Unknown JOINT Verified 05/18/22 13:58 SWELLING codeine AdvReac Unknown NAUSEA - Verified 05/18/22 13:58 CAN TAKE LORTAB Review of Systems Review of Systems: CONSTITUTIONAL: Denies body aches, fever, chills, or sweats. EYES: Denies visual changes, redness, or discharge. ENT: Denies rhinorrhea, congestion CARDIOVASCULAR: Denies chest pain, palpitations, or edema. RESPIRATORY: Denies cough or dyspnea. GASTROINTESTINAL: Denies abdominal pain, nausea, vomiting, or diarrhea. SKIN: report lip swelling with sores MUSCULOSKELETAL: Denies back pain, joint pain, or myalgia. NEUROLOGIC: Denies headache, numbness, tingling, or weakness. [facility] Past Medical History Medical History Anxiety and depression Chemical dependency COPD (chronic obstructive pulmonary disease) Diverticulosis Failure to thrive in adult Hypertension Hypothyroidism JULIAN (obstructive sleep apnea) Pancreatitis Peripheral neuropathy Pneumonia Pulmonary emphysema Pure hypercholesterolemia Seizures TIA (transient ischemic attack) Tracheostomy dependence Surgical History Surgical History H/O neck surgery C6-7 fusion Hx of cholecystectomy Hx of tonsillectomy Secondary to sepsis/ARDS Total knee replacement status Family History Family History Sibling Patient's sister is in good health Patient's brother is in good health Depression Mother Family history of malignant neoplasm of breast in first degree relative, Onset Age: 26 Patient's mother is Father Patient's father is in good health Other Family history of alcoholism Family history of lung disease Family history of malignant neoplasm of male breast Family history of migraine headaches Family history of obesity Hypertension Social History Social History Tobacco type: cigarettes Second hand tobacco smoke exposure: Yes Smoking end date: 08/02/15 Alcohol intake: never Substance use: current Substance use type: methamphetamine Gender identity (if verbalized by the patient): Female Comments At time of signature, I have reviewed and agree with nursing past medical, surgical, social and family history unless otherwise noted. Please see nursing chart for further information. There is no relevant family history pertinent to the presenting complaint Exam Narrative: GENERAL: Chronically ill-appearing EYES: conjunctivae clear, and EOMI. ENT: Mucous membranes moist. Edentulous. upper and lower inner aspect of lips with raised vesicles and mild lip swelling, tender to palpation c/w HSV; Both corners of lower lip with crusted lesions; no active drainage NECK: Supple. No lymphadenopathy CHEST: Clear to auscultation. HEART: Regular rate and rhythm. SKIN: Warm, dry. NEURO: Alert and oriented x3.
== END 2022-05-18 14:37 | disposition home or self-care (01) ==
PROVIDERS: Emergency Provider Nurse Practitioner Family; PCP Internal Medicine
DX: K13.70 Unspecified lesions of oral mucosa (principal); J44.9 Chronic obstructive pulmonary disease, unspecified; I10 Essential (primary) hypertension; E03.9 Hypothyroidism, unspecified; G47.33 Obstructive sleep apnea (adult) (pediatric); G62.9 Polyneuropathy, unspecified; E78.00 Pure hypercholesterolemia, unspecified; Z86.73 Personal history of transient ischemic attack (TIA), and cerebral infarction without residual deficits
CPT/HCPCS: 99213; G0463

== ENCOUNTER 2022-07-20 12:09 | Outpatient (CLI) | payer OTHER, SELFPAY ==
--- NOTE | ~2022-07-20 | XR_ITS ---
Clinical Indication: Code 19 positive, weakness, cough PA and lateral views of the chest: Comparison: 11/18/2019 Findings: The lungs are clear, without evidence of focal consolidation or pleural effusion. Cardiome diastinal silhouette is within normal limits. Bones and soft tissues are unremarkable. Impression: Normal chest. Reviewed, dictated and finalized at location [] IPLEX OPERATOR Impression: Normal chest.
== END 2022-07-20 12:10 | disposition home or self-care (01) ==
LOC: ANHIMG 12:12
PROVIDERS: PCP Internal Medicine; Visit Provider Internal Medicine
DX: R05.9 Cough, unspecified (principal)
CPT/HCPCS: 71046

== ENCOUNTER 2022-11-29 18:13 | Inpatient (IN) | payer OTHER, SELFPAY ==
[2022-11-29] VITALS (9 sets, daily range): BP systolic 113–140; BP diastolic 76–92; PULSE 84–98; RESP 20–28; TEMP 36.2–36.8; O2SAT 87–98; BMI 31.6
--- NOTE | ~2022-11-29 | CT_ITS ---
EXAMINATION: CTA chest PE protocol DATE: 11/29/2022 20:17 INDICATION: Shortness of breath TECHNIQUE: Computed tomography angiography (CTA) of the chest was performed with 100 mL Omnipaque-350 intravenous contrast timed to evaluate the pulmonary arteries. Coronal maximum intensity projection 3D-reconstructions were created by the technologist. The dose-length product (DLP) was 470.18 mGy-cm. Automated exposure control and iterative reconstruction technique were employed. COMPARISON: None. FINDINGS: The pulmonary arteries are well-opacified. No pulmonary embolism is identified. There are p atchy groundglass opacities throughout all lobes of the lungs. There is atelectasis in the right lowe r lobe. Trace pleural effusions are present. There is no pneumothorax. There is a moderate-sized slid ing hiatal hernia. There is mild mediastinal and right hilar lymphadenopathy, likely reactive. The ga llbladder is surgically absent. There is moderate thoracolumbar spondylosis. IMPRESSION: 1. No pulmonary embolus identified. 2. Patchy airspace opacities throughout the lungs, consistent with multifocal pneumonia. Reviewed, dictated and finalized at location F. IMPRESSION: 1. No pulmonary embolus identified. 2. Patchy airspace opacities throughout the lungs, consistent with multifocal p neumonia.
--- NOTE | ~2022-11-29 | CT_ITS ---
EXAMINATION: CTA chest abdomen DATE: 11/30/2022 21:09 INDICATION: r/o aneurysm . TECHNIQUE: Computed tomography (CT) of the chest and abdomen was performed with 100 mL Omnipaque-350 intravenous contrast, with arterial phase timing. Findings images were created by the technologist on a separate workstation Automated exposure control and iterative reconstruction technique were employ ed. The dose-length product was 866.53 mGy-cm. COMPARISON: [facility] 11/29/2022; CT abdomen pelvis 04/24/2019 FINDINGS: CHEST: Thoracic aorta: Minimal ectasia of the ascending thoracic aorta. No significant calcification. No ane urysms. No dissection. Lung parenchyma and airways: Patchy areas of bilateral upper and mid lung reticular and groundglass o pacities. Dependent consolidation, right greater than left. Thoracic inlet, axillae and chest wall: No thyroid or soft tissue mass. No axillary lymphadenopathy. Mediastinum: No mass or lymphadenopathy. Moderate hiatal hernia. Heart and pericardium: Normal heart size. No pericardial effusion. Coronary artery calcifications: Absent. Pleura: No effusion or mass. Thoracic bones: No acute osseous finding in the chest. ABDOMEN: Liver: Normal. Biliary/Gallbladder: Gallbladder is absent. No bile duct dilation. Pancreas: No mass or duct dilation. Spleen: Normal. Adrenals:No mass. Kidneys: No mass, stone, or hydronephrosis. Renal cortical thinning. GI tract: No small or large bowel dilation. Normal appendix. Mesentery/Peritoneum: No ascites, mass, or free air. Retroperitoneum: No mass Soft Tissues: Soft tissues and body wall unremarkable. Abdominal bones: No acute osseous finding in the abdomen. IMPRESSION: No aortic aneurysm or dissection. Atypical infection versus interstitial lung disease. Reviewed, dictated and finalized at location K. IMPRESSION: No aortic aneurysm or dissection. Atypical infection versus interstitial lung d isease.
--- NOTE | ~2022-11-29 | XR_ITS ---
EXAMINATION: XR chest 1V portable INDICATION: Cough TECHNIQUE: Portable AP chest at 1826 hours COMPARISON: 07/20/2022 FINDINGS: There are diffuse airspace opacities with mild sparing of the right midlung zone. No pleura l effusion or pneumothorax. The cardiomediastinal silhouette is normal. IMPRESSION: 1. Diffuse lung disease, consistent with pneumonia and/or pulmonary edema. Reviewed, dictated and finalized at location F.
--- NOTE | 2022-11-29 18:18 | ECG_ITS ---
Measurements Intervals [place] Rate: 91 P: 50 WI: 160 QRS: 14 QRSD: 73 T: 46 QT: 333 QTc: 412 Interpretive Statements SINUS RHYTHM POSSIBLE LEFT ATRIAL ENLARGEMENT EARLY PRECORDIAL R/S TRANSITION LOW QRS VOLTAGE IN PRECORDIAL LEADS BORDERLINE ECG COMPARED TO ECG 11/18/2019 15:48:03 NO SIGNIFICANT CHANGES Electronically Signed On 11-30-2022 6:33:03 CDT by Reggie Benedict D.O.
[2022-11-29] MEDS: ONDANSETRON INJ 4 MG/2 ML VIAL IV PUSH (19:01)
[2022-11-29 19:08] LABS: Basophils Percent Auto 0.3 % (0.2-1.2); Eosinophils Absolute Auto 0.3 K/mm3 (0-0.3); Eosinophils Percent Auto 4.2 % (0-4.4); Hematocrit 37.4 % (37.0-47.0); Immature Granulocyte Absolute 0.03 K/mm3 (0.00-0.031); Immature Granulocyte Percent A 0.4 % (0-0.5); Lymphocytes Absolute Auto 0.81 K/mm3 (0.9-3.2); Lymphocytes Percent Auto 10.4 % (18.3-44.2); Mean Corpuscular HGB Conc 32.1 g/dl (32-36); Mean Corpuscular Hemoglobin 29.9 pg (26-34); Mean Platelet Volume 9.9 fl (7.4-10.4); Monocytes Absolute Auto 0.8 K/mm3 (0.1-0.6); Monocytes Percent Auto 9.6 % (2.6-8.5); Neutrophils Absolute Auto 5.9 K/mm3 (1.3-6.7); Neutrophils Percent Auto 75.1 % (45.5-73.1); Platelet Count Result 248 k/mm3 (150-375); Red Blood Count 4.02 M/mm3 (4.2-5.4); Red Cell Distribution Width 15.6 % (11.5-14.5); White Blood Count 7.8 K/mm3 (4.5-10.0)
[2022-11-29 19:11] LABS: Alveolar/Arterial O2 Gradient 89.5 mmHg; Base Excess ABG -0.2 mEq/l (+/-2.0); Carboxyhemoglobin 2.1 % THb (0-2.0); Fractional Inspired Oxygen 28 %; Oxygen Content ABG 15.2 %vol (16.0-22.0); Oxygen Saturation ABG 90.1 % (95.0-100.0); PCO2 ABG 43.3 mmHg (35.0-45.0); PO2 FiO2 Ratio Arterial Blood 2.11 %; Reduced Hemoglobin 10.5 %THb (0-5.0); Total Hemoglobin 12.4 g/dL (12.0-18.0)
[2022-11-29 19:13] LABS: Device NASAL CANNULA; Oxyhemoglobin 87.4 % THb (90.0-100.0); Site Drawn RIGHT BRACHIAL
[2022-11-29 19:14] LABS: Alanine Aminotransferase 28 U/L (6-35); Albumin Level 3.7 g/dL (3.5-5.1); Alkaline Phosphatase 140 U/L (38-126); Anion Gap 8 mmol/L (8-16); Aspartate Amino Transferase 33 U/L (14-36); Bilirubin,Total 0.4 mg/dL (0.2-1.3); Blood Urea Nitrogen 18 mg/dL (7-17); Calcium 8.2 mg/dL (8.4-10.2); Carbon Dioxide 25 mmol/L (22-30); Chloride 102 mmol/L (98-107); Estimated CRCL calculation 49 ml/min; Estimated Glomerular Filt Rate 46; Glucose 102 mg/dL (65-110); Potassium 4.2 mmol/L (3.4-5.0); Sodium 135 mmol/L (137-145)
[2022-11-29 19:30] LABS: Lactic Acid Reflex 0.7 mmol/L (0.7-2.0)
[2022-11-29 19:31] LABS: Prothrombin Time 13.7 Seconds (11.1-14.7)
[2022-11-29 19:32] LABS: Partial Thromboplastin Time 40.2 SECONDS (22.3-36.8)
[2022-11-29 19:35] LABS: NT Pro B Type Natriuretic Pept 153 pg/mL (19.9-100)
[2022-11-29 19:38] LABS: Troponin I 0.013 ng/mL (0.000-0.034)
[2022-11-29 19:39] LABS: D Dimer 0.74 ug/mL (<0.48)
--- NOTE | 2022-11-29 19:44 | ED.SOB ---
HPI - SOB/Dyspnea General Chief Complaint: Shortness of Breath/Dyspnea Stated Complaint: sob Time Seen by Provider: 11/29/22 18:26 Source: patient Mode of arrival: ambulatory Limitations: no limitations History of Present Illness HPI Narrative: This is a 62 year old female with history of COPD who presents for evaluation of shortness of breath for 2 days. She reports cough for 1 week. She also reports upper back pain with breath. She is concerned she may have pneumonia because her was diagnosed with pneumonia 1 week ago. She denies fever, chills, but she is having nausea. EMS found patient to be 88% on room air so she was placed on 4 L NC. Related Data Home Medications Medication Instructions Recorded Confirmed aripiprazole 5 mg tablet 5 mg PO QHS 09/30/22 10/02/22 Allergies Allergy/AdvReac Type Severity Reaction Status Date / Time sulfamethoxazole Allergy Mild JOINT Verified 11/29/22 18:17 SWELLING clarithromycin Allergy Unknown Swelling Verified 11/29/22 18:17 gabapentin Allergy Unknown Joint pain Verified 11/29/22 18:17 trimethoprim Allergy Unknown JOINT Verified 11/29/22 18:17 SWELLING codeine AdvReac Unknown NAUSEA - Verified 11/29/22 18:17 CAN TAKE LORTAB Review of Systems Constitutional: Constitutional: Reports fatigue and Denies weakness Cardiovascular: Cardiovascular: Reports chest pain, Denies syncope, Denies rapid heart rate, Denies irregular heart rhythm, Denies leg edema and Reports dyspnea Respiratory: Respiratory: Reports chest congestion, Reports cough, Denies hemoptysis, Denies excessive phlegm production and Reports dyspnea Gastrointestinal: Gastrointestinal: Denies abdominal pain, Denies hematochezia, Denies diarrhea, Reports nausea and Denies vomiting Genitourinary: Genitourinary: Denies hematuria and Denies dysuria Musculoskeletal: Musculoskeletal: Denies joint swelling, Denies loss of height and Denies muscle weakness Neurologic: Denies syncope, Denies focal weakness and Denies weakness PMFSH Past Medical History Medical History Anxiety and depression Chemical dependency COPD (chronic obstructive pulmonary disease) Diverticulosis Failure to thrive in adult Hypertension Hypothyroidism JULIAN (obstructive sleep apnea) Pancreatitis Peripheral neuropathy Pneumonia Pulmonary emphysema Pure hypercholesterolemia Seizures TIA (transient ischemic attack) Tracheostomy dependence Surgical History Surgical History H/O neck surgery C6-7 fusion Hx of cholecystectomy Hx of tonsillectomy Secondary to sepsis/ARDS Total knee replacement status Family History Family History Sibling Patient's sister is in good health Patient's brother is in good health Depression Mother Family history of malignant neoplasm of breast in first degree relative, Onset Age: 26 Patient's mother is Father Patient's father is in good health Other Family history of alcoholism Family history of lung disease Family history of malignant neoplasm of male breast Family history of migraine headaches Family history of obesity Hypertension Social History Social History Social History: 1/2 a day lives alone daughter and has two other children seperated disabled Smoking status: Current every day smoker Tobacco type: cigarettes Second hand tobacco smoke exposure: Yes Smoking end date: 08/02/15 Alcohol intake: never Substance use: current Substance use type: methamphetamine Lack of Transportation: YES Lack of Food: Often True Current Housing: I Have Housing Concerned About Future Housing: No Difficulty Paying Gas/Electric Bills: YES Difficulty Paying for Meds: No Currently Unemployed: No Educati
[2022-11-29 19:53] LABS: Influenza A QL RT-PCR Negative (Negative); Influenza B QL RT-PCR Negative (Negative); SARS-CoV-2 RNA PCR Negative (Negative)
[2022-11-29] MEDS: SODIUM CHLORIDE 0.9% IV 1,000 ML 999 ML IV CONT (21:42)
--- NOTE | 2022-11-29 21:54 | PM.IMHP ---
H&P: HPI History of Present Illness Date/Time: 11/29/22 21:54 Chief Complaint: Shortness of breath Narrative: This is a 62-year-old female patient who has a history of COPD. The patient continues to smoke a half a pack a cigarettes a day. The patient stated that she used to have home O2 years ago but no longer has home O2. The patient has been more short of breath for the last 2 days. She has had a cough for 1 week. She also reports upper back pain with breath. Her was recently diagnosed with pneumonia 1 week ago. She has been having some nausea but denies any fever chills. EMS found the patient to be 88% O2 saturation on room air and therefore she was placed on oxygen 4 L per nasal cannula. When I came into the room the patient had her O2 out of her nose and was satting 95%. The patient stated that she was very short of breath at the time. I had her take several deep breaths in through her nose and perform pursed breathing through her lips. She then felt some relief. Her creatinine is 1.2. Her GFR is 46 I have no recent labs for comparison. Her last labs were from 05/29/2021. Her BNP is 153. She was negative for influenza A/B and COVID. Chest CTA was read as no pulmonary embolism identified. Patchy airspace opacities throughout the lungs consistent with multifocal pneumonia. The patient was given Zofran, Rocephin, doxycycline, Tylenol IV, and IV fluids. She is afebrile at this time. The patient is being admitted to inpatient status on the date of service of 11/29/2022 Review of Systems Review of Systems: All systems reviewed & are unremarkable except as noted in HPI and below Constitutional: Constitutional: Reports as per HPI and Reports no additional constitutional complaints Eyes: Eyes: Reports as per HPI and Reports no additional eye complaints ENT: Reports system reviewed and no additional complaints, except as documented and Reports Normal hearing present Cardiovascular: Cardiovascular: Reports no additional cardiovascular complaints Respiratory: Respiratory: Reports no additional respiratory complaints and Reports no additional respiratory complaints Gastrointestinal: Gastrointestinal: Reports as per HPI and Reports no additional gastrointestinal complaints Musculoskeletal: Musculoskeletal: Reports no additional musculoskeletal complaints Integumentary/Breasts: Skin/Breast: Reports system reviewed and no additional complaints, except as docu and Reports as per HPI Neurologic: Reports system reviewed and no additional complaints, except as documented, Reports as per HPI and Reports Normal hearing present Psychiatric: Psychiatric: Reports no additional psychiatric complaints and Reports as per HPI Endocrine: Endocrine: Reports no additional endocrine complaints Hematologic/Lymphatic: Hematologic/Lymphatic: Reports no additional hematologic/lymphatic complaints Allergic/Immunologic: Allergic/Immunologic: Reports no additional allergic/immunologic complaints [facility] Past Medical History Medical History (Updated 11/29/22 @ 23:21 by Jemima Fuller NP) Anxiety and depression Chemical dependency Chronic back pain COPD (chronic obstructive pulmonary disease) Diverticulosis Failure to thrive in adult Hypertension Hypothyroidism JULIAN (obstructive sleep apnea) Pancreatitis Peripheral neuropathy Pneumonia Pulmonary emphysema Pure hypercholesterolemia Seizures TIA (transient ischemic attack) Tracheostomy dependence Surgical History Surgical History H/O neck surgery C6-7 fusion Hx of cholecystectomy Hx of tonsillectomy Secondary to sepsis/ARDS Total knee replacement status Family History Family History Sibling Patient's sister is in good health Patient's brother is in good health Depression Mother Family history of malignant neoplasm of breast in first degree relative,
[2022-11-29] MEDS: DOXYCYCLINE 100 MG/NS 100 ML 100 MG/100 ML BAG IVPB (21:58)
[2022-11-30] VITALS (14 sets, daily range): BP systolic 104–126; BP diastolic 63–80; PULSE 86–108; RESP 18–26; TEMP 36.1–36.6; O2SAT 90–94
[2022-11-30] MEDS: methylPREDNISolone SOD SUCC 125 MG VIAL 60 MG IV PUSH ×4 (00:13→21:21)
[2022-11-30] MEDS: ARIPiprazole 5 MG TABLET PO ×2 (00:14→21:22)
[2022-11-30] MEDS: SODIUM CHLORIDE 0.9% IV 1,000 ML 75 ML IV CONT (00:14)
[2022-11-30 05:03] LABS: Basophils Percent Auto 0.2 % (0.2-1.2); Eosinophils Percent Auto 0.3 % (0-4.4); Hematocrit 40.3 % (37.0-47.0); Hemoglobin 12.8 g/dL (12.0-15.0); Immature Granulocyte Absolute 0.03 K/mm3 (0.00-0.031); Immature Granulocyte Percent A 0.5 % (0-0.5); Lymphocytes Percent Auto 4.8 % (18.3-44.2); Mean Corpuscular HGB Conc 31.8 g/dl (32-36); Mean Corpuscular Hemoglobin 29.8 pg (26-34); Mean Corpuscular Volume 93.9 fl (80-100); Mean Platelet Volume 9.7 fl (7.4-10.4); Monocytes Absolute Auto 0.1 K/mm3 (0.1-0.6); Monocytes Percent Auto 1.6 % (2.6-8.5); Neutrophils Absolute Auto 5.8 K/mm3 (1.3-6.7); Neutrophils Percent Auto 92.6 % (45.5-73.1); Platelet Count Result 234 k/mm3 (150-375); Red Blood Count 4.29 M/mm3 (4.2-5.4); Red Cell Distribution Width 15.6 % (11.5-14.5); White Blood Count 6.2 K/mm3 (4.5-10.0)
[2022-11-30 05:13] LABS: Lactic Acid Reflex 0.6 mmol/L (0.7-2.0)
[2022-11-30 05:14] LABS: Alanine Aminotransferase 29 U/L (6-35); Albumin Level 3.8 g/dL (3.5-5.1); Alkaline Phosphatase 166 U/L (38-126); Anion Gap 2 mmol/L (8-16); Aspartate Amino Transferase 36 U/L (14-36); Bilirubin,Total 0.4 mg/dL (0.2-1.3); Blood Urea Nitrogen 15 mg/dL (7-17); Calcium 8.6 mg/dL (8.4-10.2); Carbon Dioxide 31 mmol/L (22-30); Chloride 103 mmol/L (98-107); Estimated CRCL calculation 61 ml/min; Estimated Glomerular Filt Rate 56; Glucose 131 mg/dL (65-110); Magnesium 2.4 mg/dL (1.6-2.3); Potassium 4.8 mmol/L (3.4-5.0); Sodium 136 mmol/L (137-145)
[2022-11-30] MEDS: LEVOTHYROXINE SODIUM 112 MCG TABLET PO (07:00)
[2022-11-30] MEDS: LEVOTHYROXINE SODIUM 25 MCG TABLET PO (07:00)
[2022-11-30] MEDS: IPRATROPIUM BR 0.02% INH SOLN 0.5 MG/2.5 ML VIAL INHALATION ×3 (07:35→20:36)
[2022-11-30] MEDS: LEVALBUTEROL NEB 1.25 MG/3 ML 0.63 MG INHALATION ×3 (07:35→20:36)
[2022-11-30] MEDS: CYCLOBENZAPRINE HCL 10 MG TABLET PO ×2 (08:10→16:45)
[2022-11-30] MEDS: amLODIPine BESYLATE 5 MG TABLET PO (08:11)
[2022-11-30] MEDS: ONDANSETRON INJ 4 MG/2 ML VIAL IV PUSH (08:11)
[2022-11-30] MEDS: SERTRALINE HCL 50 MG TABLET 100 MG PO (08:11)
[2022-11-30] MEDS: ENOXAPARIN 40 MG/0.4 ML SYRINGE SUB-Q (08:12)
[2022-11-30] MEDS: DOXYCYCLINE 100 MG/NS 100 ML 100 MG/100 ML BAG IVPB ×2 (08:42→22:20)
--- NOTE | 2022-11-30 13:32 | PM.IMPN ---
Progress Note: A&P Assessment and Plan (1) Multifocal pneumonia: Code(s): J18.9 - Pneumonia, unspecified organism Status: Acute Assessment and Plan: Continue with nebulizer treatments CTA was read as the following1. No pulmonary embolus identified. 2. Patchy airspace opacities throughout the lungs, consistent with multifocal pneumonia. The patient was started on doxycycline and Rocephin. Sputum and blood cultures are pending. Tailor antibiotics according to cultures and sensitivities Tylenol for pain or fever. The patient typically is not on oxygen but was placed on oxygen at 4 L per nasal cannula today. The patient was found to be 88% O2 saturation on room air when she initially came into the emergency room. However when I assessed her she had the nasal cannula out of her nose and she was satting approximately 95%. However the patient was complaining of shortness of breath and was breathing heavily. I replaced the oxygen back into her nose in instructed her how to breathe in 3 nose and do pursed breathing and she felt relief with this. Wean off of oxygen when able. She has no leukocytosis. She does not appear to be septic as her heart rate is less than 90 and her blood pressure is 113/85. However her creatinine is right at 1.2. Her lactic is normal. Gently hydrate with IV fluids. 11/30/2022 interval history: Patient presented with complaint of shortness of breath patient is found to have multifocal pneumonia and being treated with ceftriaxone, doxycycline, and bronchodilator patient's C continue to have pain with deep breath, denies any fever or chills will continue to monitor and further recommendation to follow. (2) Acute respiratory failure with hypoxia: Code(s): J96.01 - Acute respiratory failure with hypoxia Status: Acute Assessment and Plan: The patient was placed on oxygen at 4 L per nasal cannula. CTA was read as1. No pulmonary embolus identified. 2. Patchy airspace opacities throughout the lungs, consistent with multifocal pneumonia. Wean off of oxygen when necessary. She has a component of COPD and therefore Solu-Medrol was ordered. Continue with nebulizer treatments The patient stated that she had been on oxygen in the past. However she does not currently have home O2. (3) Cigarette smoker: Code(s): F17.210 - Nicotine dependence, cigarettes, uncomplicated Status: Acute Assessment and Plan: Patient was encouraged to stop smoking and we discussed smoking cessation for approximately 5 minutes. Continue with smoking cessation. (4) Hypothyroidism: Code(s): E03.9 - Hypothyroidism, unspecified Status: Acute Assessment and Plan: Continue with levothyroxine and check thyroid level. (5) JULIAN (obstructive sleep apnea): Code(s): G47.33 - Obstructive sleep apnea (adult) (pediatric) Status: Acute Assessment and Plan: The patient stated that she has sleep apnea and that she is getting ready to redo her test to see if she needs to be on different settings. A CPAP/BiPAP was ordered for here to titrate to home settings. (6) COPD (chronic obstructive pulmonary disease): Code(s): J44.9 - Chronic obstructive pulmonary disease, unspecified Status: Acute Assessment and Plan: Solu-Medrol was given and nebulizer treatments. Wean off of oxygen when able. (7) Hypertension: Qualifiers: Hypertension type: essential hypertension Qualified Code(s): I10 - Essential (primary) hypertension Code(s): I10 - Essential (primary) hypertension Status: Acute Assessment and Plan: Continue with amlodipine if map is greater than 65. (8) Anxiety and depression: Code(s): F41.9 - Anxiety disorder, unspecified; F32.9 - Major depressive disorder, single episode, unspecified Status: Acute Assessment and Plan: Continue with sertraline (9) Chronic back pain: Code(s): M54.9 - Dorsalgia, unspecifi
[2022-11-30] MEDS: LIDOCAINE 5% PATCH 2 PATCH TRANSDERM (16:45)
[2022-11-30] MEDS: HYDROcodone/acetaminophen (*CRX) 5-325 MG TABLET 1 TAB PO (20:10)
[2022-11-30] MEDS: ACETAMINOPHEN 325 MG TABLET 650 MG PO (21:21)
[2022-11-30] MEDS: KETOROLAC 15 MG/ML VIAL (*BKC) IV PUSH (23:58)
[2022-11-30] MEDS: guaiFENesin/DEXTROMETHORPHAN 10 ML UDC PO (23:58)
[2022-12-01] VITALS (18 sets, daily range): BP systolic 118–147; BP diastolic 73–87; PULSE 87–117; RESP 14–20; TEMP 36.1–36.4; O2SAT 90–95
[2022-12-01] MEDS: HYDROcodone/acetaminophen (*CRX) 5-325 MG TABLET 1 TAB PO ×3 (02:21→17:23)
[2022-12-01] MEDS: SODIUM CHLORIDE 0.9% IV 1,000 ML 75 ML IV CONT ×2 (02:25→18:37)
[2022-12-01 05:23] LABS: Hemoglobin 11.8 g/dL (12.0-15.0); Mean Corpuscular HGB Conc 31.1 g/dl (32-36); Mean Corpuscular Hemoglobin 29.3 pg (26-34); Mean Corpuscular Volume 94.3 fl (80-100); Mean Platelet Volume 9.6 fl (7.4-10.4); Platelet Count Result 261 k/mm3 (150-375); Red Blood Count 4.03 M/mm3 (4.2-5.4); Red Cell Distribution Width 15.4 % (11.5-14.5); White Blood Count 13.7 K/mm3 (4.5-10.0)
[2022-12-01] MEDS: methylPREDNISolone SOD SUCC 125 MG VIAL 60 MG IV PUSH ×3 (05:27→21:16)
[2022-12-01] MEDS: LEVOTHYROXINE SODIUM 112 MCG TABLET PO (05:28)
[2022-12-01] MEDS: LEVOTHYROXINE SODIUM 25 MCG TABLET PO (05:29)
[2022-12-01 05:34] LABS: Anion Gap 2 mmol/L (8-16); Blood Urea Nitrogen 23 mg/dL (7-17); Calcium 8.6 mg/dL (8.4-10.2); Carbon Dioxide 28 mmol/L (22-30); Chloride 105 mmol/L (98-107); Estimated CRCL calculation 67 ml/min; Estimated Glomerular Filt Rate > 60; Glucose 135 mg/dL (65-110); Magnesium 2.3 mg/dL (1.6-2.3); Sodium 135 mmol/L (137-145)
[2022-12-01] MEDS: SERTRALINE HCL 50 MG TABLET 100 MG PO (08:26)
[2022-12-01] MEDS: ENOXAPARIN 40 MG/0.4 ML SYRINGE SUB-Q (08:30)
[2022-12-01] MEDS: amLODIPine BESYLATE 5 MG TABLET PO (08:30)
[2022-12-01] MEDS: DOXYCYCLINE 100 MG/NS 100 ML 100 MG/100 ML BAG IVPB ×2 (08:31→21:16)
[2022-12-01] MEDS: LEVALBUTEROL NEB 1.25 MG/3 ML 0.63 MG INHALATION ×3 (09:20→20:51)
[2022-12-01] MEDS: IPRATROPIUM BR 0.02% INH SOLN 0.5 MG/2.5 ML VIAL INHALATION ×3 (09:20→20:51)
--- NOTE | 2022-12-01 10:35 | PC.NURSE ---
On 12/01/22, the student, [Skye Sandoval], provided care and completed [facility] documentation on this patient. I have reviewed the student's documentation and agree with the findings.
--- NOTE | 2022-12-01 10:40 | P.CDI_ITS ---
CDI Query Clarification Request She has some component of COPD therefore Solu-Medrol was ordered documented. Patient receiving Solu-Medrol 60 mg IV push Q 8hrs. Patient receiving nebs treatments Q 6hrs. Documented history of COPD. Please specify status of COPD, if known. * Exacerbation of COPD * No exacerbation/stable COPD * Other * Unable to determine <Cecilia Frank RN - Last Filed: 12/01/22 10:45> Clarified Diagnosis Clarified Diagnosis: Patient presented with multifocal pneumonia with history of COPD and shortness of breath most likely exacerbation of COPD contributed to her symptoms and patient was treated <Lola Booker MD - Last Filed: 12/09/22 07:45>
--- NOTE | 2022-12-01 11:39 | PM.IMPN ---
Progress Note: A&P Assessment and Plan (1) Multifocal pneumonia: Code(s): J18.9 - Pneumonia, unspecified organism Status: Acute Assessment and Plan: Continue with nebulizer treatments CTA was read as the following1. No pulmonary embolus identified. 2. Patchy airspace opacities throughout the lungs, consistent with multifocal pneumonia. The patient was started on doxycycline and Rocephin. Sputum and blood cultures are pending. Tailor antibiotics according to cultures and sensitivities Tylenol for pain or fever. The patient typically is not on oxygen but was placed on oxygen at 4 L per nasal cannula today. The patient was found to be 88% O2 saturation on room air when she initially came into the emergency room. However when I assessed her she had the nasal cannula out of her nose and she was satting approximately 95%. However the patient was complaining of shortness of breath and was breathing heavily. I replaced the oxygen back into her nose in instructed her how to breathe in 3 nose and do pursed breathing and she felt relief with this. Wean off of oxygen when able. She has no leukocytosis. She does not appear to be septic as her heart rate is less than 90 and her blood pressure is 113/85. However her creatinine is right at 1.2. Her lactic is normal. Gently hydrate with IV fluids. 12/01/2022 interval history: Patient presented with complaint of shortness of breath patient is found to have multifocal pneumonia and being treated with ceftriaxone, doxycycline, and bronchodilator patient's had been continue to have pain with deep breath, upon arrival patient was hypotensive, was placed levophed, no off, Patient has history of illicit drug abuse, today patient stats feels better, denies any fever or chills, will remove femoral line and have patient work with PT, will continue to monitor and further recommendation to follow. (2) Acute respiratory failure with hypoxia: Code(s): J96.01 - Acute respiratory failure with hypoxia Status: Acute Assessment and Plan: The patient was placed on oxygen at 4 L per nasal cannula. CTA was read as1. No pulmonary embolus identified. 2. Patchy airspace opacities throughout the lungs, consistent with multifocal pneumonia. Wean off of oxygen when necessary. She has a component of COPD and therefore Solu-Medrol was ordered. Continue with nebulizer treatments The patient stated that she had been on oxygen in the past. However she does not currently have home O2. (3) Cigarette smoker: Code(s): F17.210 - Nicotine dependence, cigarettes, uncomplicated Status: Acute Assessment and Plan: Patient was encouraged to stop smoking and we discussed smoking cessation for approximately 5 minutes. Continue with smoking cessation. (4) Hypothyroidism: Code(s): E03.9 - Hypothyroidism, unspecified Status: Acute Assessment and Plan: Continue with levothyroxine and check thyroid level. (5) JULIAN (obstructive sleep apnea): Code(s): G47.33 - Obstructive sleep apnea (adult) (pediatric) Status: Acute Assessment and Plan: The patient stated that she has sleep apnea and that she is getting ready to redo her test to see if she needs to be on different settings. A CPAP/BiPAP was ordered for here to titrate to home settings. (6) COPD (chronic obstructive pulmonary disease): Code(s): J44.9 - Chronic obstructive pulmonary disease, unspecified Status: Acute Assessment and Plan: Solu-Medrol was given and nebulizer treatments. Wean off of oxygen when able. (7) Hypertension: Qualifiers: Hypertension type: essential hypertension Qualified Code(s): I10 - Essential (primary) hypertension Code(s): I10 - Essential (primary) hypertension Status: Acute Assessment and Plan: Continue with amlodipine if map is greater than 65. (8) Anxiety and depression: Code(s): F41.9 - Anxiety disorder, unspecified;
--- NOTE | 2022-12-01 12:23 | PM.IMPN ---
Progress Note: A&P Assessment and Plan (1) Multifocal pneumonia: Code(s): J18.9 - Pneumonia, unspecified organism Status: Acute Assessment and Plan: Continue with nebulizer treatments CTA was read as the following1. No pulmonary embolus identified. 2. Patchy airspace opacities throughout the lungs, consistent with multifocal pneumonia. The patient was started on doxycycline and Rocephin. Sputum and blood cultures are pending. Tailor antibiotics according to cultures and sensitivities Tylenol for pain or fever. The patient typically is not on oxygen but was placed on oxygen at 4 L per nasal cannula today. The patient was found to be 88% O2 saturation on room air when she initially came into the emergency room. However when I assessed her she had the nasal cannula out of her nose and she was satting approximately 95%. However the patient was complaining of shortness of breath and was breathing heavily. I replaced the oxygen back into her nose in instructed her how to breathe in 3 nose and do pursed breathing and she felt relief with this. Wean off of oxygen when able. She has no leukocytosis. She does not appear to be septic as her heart rate is less than 90 and her blood pressure is 113/85. However her creatinine is right at 1.2. Her lactic is normal. Gently hydrate with IV fluids. 12/01/2022 interval history: Patient presented with complaint of shortness of breath patient is found to have multifocal pneumonia and being treated with ceftriaxone, doxycycline, and bronchodilator patient's had been continue to have pain with deep breath, upon arrival patient was hypotensive, Patient has history of illicit drug abuse, patient continue to ask for pain medication, will continue present managed and further recommendation to follow. (2) Acute respiratory failure with hypoxia: Code(s): J96.01 - Acute respiratory failure with hypoxia Status: Acute Assessment and Plan: The patient was placed on oxygen at 4 L per nasal cannula. CTA was read as1. No pulmonary embolus identified. 2. Patchy airspace opacities throughout the lungs, consistent with multifocal pneumonia. Wean off of oxygen when necessary. She has a component of COPD and therefore Solu-Medrol was ordered. Continue with nebulizer treatments The patient stated that she had been on oxygen in the past. However she does not currently have home O2. (3) Cigarette smoker: Code(s): F17.210 - Nicotine dependence, cigarettes, uncomplicated Status: Acute Assessment and Plan: Patient was encouraged to stop smoking and we discussed smoking cessation for approximately 5 minutes. Continue with smoking cessation. (4) Hypothyroidism: Code(s): E03.9 - Hypothyroidism, unspecified Status: Acute Assessment and Plan: Continue with levothyroxine and check thyroid level. (5) JULIAN (obstructive sleep apnea): Code(s): G47.33 - Obstructive sleep apnea (adult) (pediatric) Status: Acute Assessment and Plan: The patient stated that she has sleep apnea and that she is getting ready to redo her test to see if she needs to be on different settings. A CPAP/BiPAP was ordered for here to titrate to home settings. (6) COPD (chronic obstructive pulmonary disease): Code(s): J44.9 - Chronic obstructive pulmonary disease, unspecified Status: Acute Assessment and Plan: Solu-Medrol was given and nebulizer treatments. Wean off of oxygen when able. (7) Hypertension: Qualifiers: Hypertension type: essential hypertension Qualified Code(s): I10 - Essential (primary) hypertension Code(s): I10 - Essential (primary) hypertension Status: Acute Assessment and Plan: Continue with amlodipine if map is greater than 65. (8) Anxiety and depression: Code(s): F41.9 - Anxiety disorder, unspecified; F32.9 - Major depressive disorder, single episode, unspecified Status: Acute Assessment a
[2022-12-01] MEDS: guaiFENesin/DEXTROMETHORPHAN 10 ML UDC PO ×2 (12:54→19:17)
[2022-12-01] MEDS: CYCLOBENZAPRINE HCL 10 MG TABLET PO (19:17)
[2022-12-01] MEDS: LIDOCAINE 5% PATCH 2 PATCH TRANSDERM (19:18)
[2022-12-01] MEDS: KETOROLAC 15 MG/ML VIAL (*BKC) IV PUSH (21:15)
[2022-12-01] MEDS: ARIPiprazole 5 MG TABLET PO (21:16)
[2022-12-01] MEDS: WATER FOR IRRIGATION, STERILE 1,000 ML BOTTLE 1000 ML (23:30)
[2022-12-02] VITALS (19 sets, daily range): BP systolic 143–152; BP diastolic 89–97; PULSE 83–116; RESP 14–588; TEMP 36–36.8; O2SAT 93–97
[2022-12-02] MEDS: IPRATROPIUM BR 0.02% INH SOLN 0.5 MG/2.5 ML VIAL INHALATION ×4 (02:44→21:31)
[2022-12-02] MEDS: LEVALBUTEROL NEB 1.25 MG/3 ML 0.63 MG INHALATION ×4 (02:44→21:31)
[2022-12-02 05:41] LABS: Hemoglobin 12.5 g/dL (12.0-15.0); Mean Corpuscular HGB Conc 31.3 g/dl (32-36); Mean Corpuscular Hemoglobin 29.8 pg (26-34); Mean Corpuscular Volume 95.2 fl (80-100); Mean Platelet Volume 9.7 fl (7.4-10.4); Platelet Count Result 280 k/mm3 (150-375); Red Cell Distribution Width 15.5 % (11.5-14.5); White Blood Count 16.3 K/mm3 (4.5-10.0)
[2022-12-02 05:55] LABS: Anion Gap 4 mmol/L (8-16); Blood Urea Nitrogen 29 mg/dL (7-17); Calcium 8.5 mg/dL (8.4-10.2); Carbon Dioxide 30 mmol/L (22-30); Chloride 102 mmol/L (98-107); Estimated CRCL calculation 67 ml/min; Estimated Glomerular Filt Rate > 60; Glucose 119 mg/dL (65-110); Magnesium 2.2 mg/dL (1.6-2.3); Potassium 4.4 mmol/L (3.4-5.0); Sodium 136 mmol/L (137-145)
[2022-12-02] MEDS: guaiFENesin/DEXTROMETHORPHAN 10 ML UDC PO ×4 (05:55→23:56)
[2022-12-02] MEDS: HYDROcodone/acetaminophen (*CRX) 5-325 MG TABLET 1 TAB PO ×5 (05:55→23:53)
[2022-12-02] MEDS: methylPREDNISolone SOD SUCC 125 MG VIAL 60 MG IV PUSH ×3 (05:55→22:26)
[2022-12-02] MEDS: LEVOTHYROXINE SODIUM 112 MCG TABLET PO (05:55)
[2022-12-02] MEDS: LEVOTHYROXINE SODIUM 25 MCG TABLET PO (05:55)
[2022-12-02] MEDS: SERTRALINE HCL 50 MG TABLET 100 MG PO (09:02)
[2022-12-02] MEDS: amLODIPine BESYLATE 5 MG TABLET PO (09:02)
[2022-12-02] MEDS: ENOXAPARIN 40 MG/0.4 ML SYRINGE SUB-Q (09:03)
[2022-12-02] MEDS: DOXYCYCLINE 100 MG/NS 100 ML 100 MG/100 ML BAG IVPB (09:03)
--- NOTE | 2022-12-02 10:04 | PC.NURSE ---
On 12/02/22, the student, [Skye Sandoval], provided care and completed [facility] documentation on this patient. I have reviewed the student's documentation and agree with the findings.
--- NOTE | 2022-12-02 10:19 | PM.IMPN ---
Progress Note: A&P Assessment and Plan (1) Multifocal pneumonia: Code(s): J18.9 - Pneumonia, unspecified organism Status: Acute Assessment and Plan: Continue with nebulizer treatments CTA was read as the following1. No pulmonary embolus identified. 2. Patchy airspace opacities throughout the lungs, consistent with multifocal pneumonia. The patient was started on doxycycline and Rocephin. Sputum and blood cultures are pending. Tailor antibiotics according to cultures and sensitivities Tylenol for pain or fever. The patient typically is not on oxygen but was placed on oxygen at 4 L per nasal cannula today. The patient was found to be 88% O2 saturation on room air when she initially came into the emergency room. However when I assessed her she had the nasal cannula out of her nose and she was satting approximately 95%. However the patient was complaining of shortness of breath and was breathing heavily. I replaced the oxygen back into her nose in instructed her how to breathe in 3 nose and do pursed breathing and she felt relief with this. Wean off of oxygen when able. She has no leukocytosis. She does not appear to be septic as her heart rate is less than 90 and her blood pressure is 113/85. However her creatinine is right at 1.2. Her lactic is normal. Gently hydrate with IV fluids. (2) Acute respiratory failure with hypoxia: Code(s): J96.01 - Acute respiratory failure with hypoxia Status: Acute Assessment and Plan: The patient was placed on oxygen at 4 L per nasal cannula. CTA was read as1. No pulmonary embolus identified. 2. Patchy airspace opacities throughout the lungs, consistent with multifocal pneumonia. Wean off of oxygen when necessary. She has a component of COPD and therefore Solu-Medrol was ordered. Continue with nebulizer treatments The patient stated that she had been on oxygen in the past. However she does not currently have home O2. (3) Cigarette smoker: Code(s): F17.210 - Nicotine dependence, cigarettes, uncomplicated Status: Acute Assessment and Plan: Patient was encouraged to stop smoking and we discussed smoking cessation for approximately 5 minutes. Continue with smoking cessation. (4) Hypothyroidism: Code(s): E03.9 - Hypothyroidism, unspecified Status: Acute Assessment and Plan: Continue with levothyroxine and check thyroid level. (5) JULIAN (obstructive sleep apnea): Code(s): G47.33 - Obstructive sleep apnea (adult) (pediatric) Status: Acute Assessment and Plan: The patient stated that she has sleep apnea and that she is getting ready to redo her test to see if she needs to be on different settings. A CPAP/BiPAP was ordered for here to titrate to home settings. (6) COPD (chronic obstructive pulmonary disease): Code(s): J44.9 - Chronic obstructive pulmonary disease, unspecified Status: Acute Assessment and Plan: Solu-Medrol was given and nebulizer treatments. Wean off of oxygen when able. (7) Hypertension: Qualifiers: Hypertension type: essential hypertension Qualified Code(s): I10 - Essential (primary) hypertension Code(s): I10 - Essential (primary) hypertension Status: Acute Assessment and Plan: Continue with amlodipine if map is greater than 65. (8) Anxiety and depression: Code(s): F41.9 - Anxiety disorder, unspecified; F32.9 - Major depressive disorder, single episode, unspecified Status: Acute Assessment and Plan: Continue with sertraline (9) Chronic back pain: Code(s): M54.9 - Dorsalgia, unspecified; G89.29 - Other chronic pain Status: Acute Assessment and Plan: Continue with muscle relaxers that she takes at home. Subjective Date/time seen: 12/02/22 10:19 Interval history: No new complaints Exam Narrative: Morbidly obese Patient is comfortable, NAD HEENT: eyes are clear and none icteric LUNGS: Nor
[2022-12-02] MEDS: polyethylene glycoL 3350 17 GM POWD.PACK PO (10:58)
--- NOTE | 2022-12-02 16:51 | PCCCNOTE ---
On 12/02/22, the student, [Sofia Ho ], provided care and completed [facility] documentation on this patient. I have reviewed the student's documentation and agree with the findings.
[2022-12-02] MEDS: ARIPiprazole 5 MG TABLET PO (19:29)
[2022-12-02] MEDS: AMOXICILLIN/CLAVULANATE K 875-125 MG TAB 1 TABLET PO (19:29)
[2022-12-02] MEDS: DOXYCYCLINE HYCLATE 100 MG TABLET PO (19:30)
[2022-12-02] MEDS: hydrALAZINE HCL 20 MG/ML VIAL 10 MG IV PUSH (21:14)
[2022-12-02] MEDS: CYCLOBENZAPRINE HCL 10 MG TABLET PO (22:31)
[2022-12-02] MEDS: ONDANSETRON INJ 4 MG/2 ML VIAL IV PUSH (23:58)
[2022-12-03] VITALS (22 sets, daily range): BP systolic 134–152; BP diastolic 88–95; PULSE 85–114; RESP 16–26; TEMP 35.8–36.9; O2SAT 82–96
[2022-12-03] MEDS: IPRATROPIUM BR 0.02% INH SOLN 0.5 MG/2.5 ML VIAL INHALATION ×4 (02:30→19:29)
[2022-12-03] MEDS: LEVALBUTEROL NEB 1.25 MG/3 ML 0.63 MG INHALATION ×4 (02:30→19:30)
--- NOTE | 2022-12-03 04:33 | ECG_ITS ---
Measurements Intervals [place] Rate: 90 P: 64 [place]: 142 QRS: 44 QRSD: 98 T: 63 QT: 340 QTc: 418 Interpretive Statements SINUS RHYTHM POSSIBLE LEFT ATRIAL ENLARGEMENT BORDERLINE ECG COMPARED TO ECG 11/29/2022 18:34:06 NO SIGNIFICANT CHANGES Electronically Signed On 12-03-2022 6:35:19 CDT by Reggie Benedict D.O.
[2022-12-03] MEDS: SODIUM CHLORIDE 0.9% IV 1,000 ML 75 ML IV CONT ×2 (05:05→22:40)
[2022-12-03] MEDS: ALPRAZolam (*CRX) 0.125 MG TABLET PO (05:05)
[2022-12-03] MEDS: methylPREDNISolone SOD SUCC 125 MG VIAL 60 MG IV PUSH ×3 (05:07→22:37)
[2022-12-03] MEDS: LEVOTHYROXINE SODIUM 112 MCG TABLET PO (05:07)
[2022-12-03] MEDS: LEVOTHYROXINE SODIUM 25 MCG TABLET PO (05:07)
[2022-12-03 05:55] LABS: Hematocrit 41.1 % (37.0-47.0); Hemoglobin 12.9 g/dL (12.0-15.0); Mean Corpuscular HGB Conc 31.4 g/dl (32-36); Mean Corpuscular Hemoglobin 29.9 pg (26-34); Mean Corpuscular Volume 95.1 fl (80-100); Mean Platelet Volume 9.6 fl (7.4-10.4); Platelet Count Result 259 k/mm3 (150-375); Red Blood Count 4.32 M/mm3 (4.2-5.4); Red Cell Distribution Width 15.1 % (11.5-14.5); White Blood Count 12.4 K/mm3 (4.5-10.0)
[2022-12-03 06:02] LABS: Anion Gap 5 mmol/L (8-16); Blood Urea Nitrogen 27 mg/dL (7-17); Calcium 8.4 mg/dL (8.4-10.2); Carbon Dioxide 30 mmol/L (22-30); Chloride 101 mmol/L (98-107); Estimated CRCL calculation 84 ml/min; Estimated Glomerular Filt Rate > 60; Glucose 126 mg/dL (65-110); Potassium 4.5 mmol/L (3.4-5.0); Sodium 136 mmol/L (137-145)
[2022-12-03] MEDS: HYDROcodone/acetaminophen (*CRX) 5-325 MG TABLET 1 TAB PO ×3 (06:02→19:52)
[2022-12-03] MEDS: amLODIPine BESYLATE 5 MG TABLET PO (09:34)
[2022-12-03] MEDS: DOXYCYCLINE HYCLATE 100 MG TABLET PO ×2 (09:34→19:55)
[2022-12-03] MEDS: AMOXICILLIN/CLAVULANATE K 875-125 MG TAB 1 TABLET PO ×2 (09:34→19:54)
[2022-12-03] MEDS: SERTRALINE HCL 50 MG TABLET 100 MG PO (09:34)
[2022-12-03] MEDS: ENOXAPARIN 40 MG/0.4 ML SYRINGE SUB-Q (09:34)
[2022-12-03] MEDS: CYCLOBENZAPRINE HCL 10 MG TABLET PO ×3 (09:39→19:52)
[2022-12-03] MEDS: guaiFENesin/DEXTROMETHORPHAN 10 ML UDC PO (09:39)
[2022-12-03] MEDS: LIDOCAINE 5% PATCH 2 PATCH TRANSDERM (09:39)
--- NOTE | 2022-12-03 11:13 | PM.IMPN ---
Progress Note: A&P Assessment and Plan (1) Multifocal pneumonia: Code(s): J18.9 - Pneumonia, unspecified organism Status: Acute Assessment and Plan: Continue with nebulizer treatments CTA was read as the following1. No pulmonary embolus identified. 2. Patchy airspace opacities throughout the lungs, consistent with multifocal pneumonia. The patient was started on doxycycline and Rocephin. Sputum and blood cultures are pending. Tailor antibiotics according to cultures and sensitivities Tylenol for pain or fever. Continue oxygen as needed. (2) Acute respiratory failure with hypoxia: Code(s): J96.01 - Acute respiratory failure with hypoxia Status: Acute Assessment and Plan: See plan as above (3) Cigarette smoker: Code(s): F17.210 - Nicotine dependence, cigarettes, uncomplicated Status: Acute Assessment and Plan: Patient was encouraged to stop smoking and we discussed smoking cessation for approximately 5 minutes. Continue with smoking cessation. (4) Hypothyroidism: Code(s): E03.9 - Hypothyroidism, unspecified Status: Acute Assessment and Plan: Continue with levothyroxine and check thyroid level. (5) JULIAN (obstructive sleep apnea): Code(s): G47.33 - Obstructive sleep apnea (adult) (pediatric) Status: Acute Assessment and Plan: The patient stated that she has sleep apnea and that she is getting ready to redo her test to see if she needs to be on different settings. A CPAP/BiPAP was ordered for here to titrate to home settings. (6) COPD (chronic obstructive pulmonary disease): Code(s): J44.9 - Chronic obstructive pulmonary disease, unspecified Status: Acute Assessment and Plan: Solu-Medrol was given and nebulizer treatments. Wean off of oxygen when able. (7) Hypertension: Qualifiers: Hypertension type: essential hypertension Qualified Code(s): I10 - Essential (primary) hypertension Code(s): I10 - Essential (primary) hypertension Status: Acute Assessment and Plan: Continue with amlodipine if map is greater than 65. (8) Anxiety and depression: Code(s): F41.9 - Anxiety disorder, unspecified; F32.9 - Major depressive disorder, single episode, unspecified Status: Acute Assessment and Plan: Continue with sertraline (9) Chronic back pain: Code(s): M54.9 - Dorsalgia, unspecified; G89.29 - Other chronic pain Status: Acute Assessment and Plan: Continue with muscle relaxers that she takes at home. (10) Dysphagia: Code(s): R13.10 - Dysphagia, unspecified Status: Acute Assessment and Plan: GI consult Subjective Date/time seen: 12/03/22 11:13 Interval history: Respiratory status is improved. She is breathing much better. Having new complaints of dysphagia to solids. Exam Narrative: Morbidly obese Patient is comfortable, NAD HEENT: eyes are clear and none icteric LUNGS: Normal respiratory effort ABD: Distended Lower extremities: no edema SKIN: nonjaundiced Neuro: grossly intact. Objective Data Vital Signs Vital Signs: Vital Signs - 24 hr 12/02/22 12:00 12/02/22 13:00 12/02/22 13:10 Temperature Pulse Rate 100 84 86 Respiratory Rate 18 18 Blood Pressure Pulse Oximetry Oxygen Delivery Oxygen Flow Rate 12/02/22 14:00 12/02/22 16:00 12/02/22 20:00 Temperature 97.6 F Pulse Rate 89 93 101 H Respiratory Rate 14 Blood Pressure 143/97 H Pulse Oximetry 97 Oxygen Delivery Oxygen Flow Rate 12/02/22 20:00 12/02/22 20:59 12/02/22 21:47 Temperature 98.2 F Pulse Rate 93 99 Respiratory Rate 14 18 Blood Pressure 152/92 H Pulse Oximetry 97 95 Oxygen Delivery Nasal Cannula Oxygen Flow Rate 4 12/02/22 21:31 12/02/22 21:40 12/02/22 21:40 Temperature Pulse Rate 99 95 102 H Respiratory Rate 18 18 23 H Blood Pressure Pulse Oximetry 93 Oxygen D
[2022-12-03] MEDS: polyethylene glycoL 3350 17 GM POWD.PACK PO (11:33)
--- NOTE | 2022-12-03 17:29 | WPDGICN ---
Assessment and Plan Assessment and plan (1) Dysphagia: Code(s): R13.10 - Dysphagia, unspecified Status: Acute Assessment and Plan: worsening dysphagia to solids h/o pylori treated in the past will proceed with egd tomorrow, respiratory status has improved (2) Acute respiratory failure with hypoxia: Code(s): J96.01 - Acute respiratory failure with hypoxia Status: Acute Assessment and Plan: better (3) Multifocal pneumonia: Code(s): J18.9 - Pneumonia, unspecified organism Status: Acute Assessment and Plan: on abx, better (4) COPD (chronic obstructive pulmonary disease): Code(s): J44.9 - Chronic obstructive pulmonary disease, unspecified Status: Acute (5) Hypertension: Qualifiers: Hypertension type: essential hypertension Qualified Code(s): I10 - Essential (primary) hypertension Code(s): I10 - Essential (primary) hypertension Status: Acute (6) Cigarette smoker: Code(s): F17.210 - Nicotine dependence, cigarettes, uncomplicated Status: Acute Assessment and Plan: needs to quit (7) GERD (gastroesophageal reflux disease): Code(s): K21.9 - Gastro-esophageal reflux disease without esophagitis Status: Acute Assessment and Plan: egd (8) Nausea & vomiting: Code(s): R11.2 - Nausea with vomiting, unspecified Status: Acute Assessment and Plan: will assess with egd (9) Adenomatous colon polyp: Code(s): D12.6 - Benign neoplasm of colon, unspecified Status: Acute Assessment and Plan: colonoscopy as outpatient she is due GI Consult Note Consult date/time: 12/03/22 17:29 Reason for consult: dysphagia HPI: Sunita Daniels is a 62 year old female with history of COPD with oxygen at home as needed, julian, smoker, gerd. She was admitted about 5 days ago with progressive shortness of breath and diagnosed with respiratory failure and pneumonia/ She has been feeling better. She also says that for last month noted progressive difficulty swallowing solid food, started out after eating pasta and now sometimes she has to regurgitate after eating and gets nauseous. She had EGD in the past, last time 3-4 years ago, diagnosed with H pylori and treated in 3 different occasions. Had colonoscopy with polyps removed and says that she is overdue. Review of Systems Constitutional: Constitutional: Reports fatigue Eyes: Eyes: Denies blurry vision ENT: Reports Normal hearing present and Reports dysphagia Cardiovascular: Cardiovascular: Denies lightheadedness Respiratory: Respiratory: Reports cough Gastrointestinal: Gastrointestinal: Reports heartburn and Reports nausea Genitourinary: Genitourinary: Denies hematuria Musculoskeletal: Musculoskeletal: Denies joint swelling Integumentary/Breasts: Skin/Breast: Denies rash Neurologic: Denies Abnormal speech present Psychiatric: Psychiatric: Denies confusion [facility] Past Medical History Medical History (Updated 12/03/22 @ 17:35 by Stephen Fatima MD) Adenomatous colon polyp Anxiety and depression Chemical dependency Chronic back pain COPD (chronic obstructive pulmonary disease) Diverticulosis Failure to thrive in adult GERD (gastroesophageal reflux disease) Hypertension Hypothyroidism Nausea & vomiting JULIAN (obstructive sleep apnea) Pancreatitis Peripheral neuropathy Pneumonia Pulmonary emphysema Pure hypercholesterolemia Seizures TIA (transient ischemic attack) Tracheostomy dependence Surgical History Surgical History H/O neck surgery C6-7 fusion Hx of cholecystectomy Hx of tonsillectomy Secondary to sepsis/ARDS Total knee replacement status Family History Family History Sibling Patient's sister is in good health Patient's brother is in good health Depression Mother Decea
[2022-12-03] MEDS: ARIPiprazole 5 MG TABLET PO (19:56)
[2022-12-04] VITALS (25 sets, daily range): BP systolic 114–174; BP diastolic 80–114; PULSE 74–104; RESP 18–22; TEMP 35.7–36.4; O2SAT 81–99
[2022-12-04] MEDS: IPRATROPIUM BR 0.02% INH SOLN 0.5 MG/2.5 ML VIAL INHALATION ×4 (02:16→21:04)
[2022-12-04] MEDS: LEVALBUTEROL NEB 1.25 MG/3 ML 0.63 MG INHALATION ×4 (02:16→21:05)
[2022-12-04 05:51] LABS: Hematocrit 43.7 % (37.0-47.0); Hemoglobin 13.7 g/dL (12.0-15.0); Mean Corpuscular HGB Conc 31.4 g/dl (32-36); Mean Corpuscular Hemoglobin 29.3 pg (26-34); Mean Corpuscular Volume 93.6 fl (80-100); Mean Platelet Volume 9.2 fl (7.4-10.4); Platelet Count Result 263 k/mm3 (150-375); Red Blood Count 4.67 M/mm3 (4.2-5.4); Red Cell Distribution Width 14.8 % (11.5-14.5); White Blood Count 10.8 K/mm3 (4.5-10.0)
[2022-12-04 06:03] LABS: Anion Gap 7 mmol/L (8-16); Blood Urea Nitrogen 29 mg/dL (7-17); Calcium 8.6 mg/dL (8.4-10.2); Carbon Dioxide 30 mmol/L (22-30); Chloride 98 mmol/L (98-107); Estimated CRCL calculation 75 ml/min; Estimated Glomerular Filt Rate > 60; Glucose 132 mg/dL (65-110); Magnesium 2.2 mg/dL (1.6-2.3); Potassium 4.8 mmol/L (3.4-5.0); Sodium 135 mmol/L (137-145)
[2022-12-04] MEDS: methylPREDNISolone SOD SUCC 125 MG VIAL 60 MG IV PUSH ×2 (06:04→09:40)
[2022-12-04] MEDS: CYCLOBENZAPRINE HCL 10 MG TABLET PO ×2 (07:11→15:48)
[2022-12-04] MEDS: HYDROcodone/acetaminophen (*CRX) 5-325 MG TABLET 1 TAB PO (07:11)
--- NOTE | 2022-12-04 08:35 | PCPTNOTE ---
Attempted PT evaluation. Pt started to work with therapist, but then stopped/became upset when she found out her procedure is at 4 pm. RN aware. Will follow.
--- NOTE | 2022-12-04 10:26 | PM.IMPN ---
Progress Note: A&P Assessment and Plan (1) Multifocal pneumonia: Code(s): J18.9 - Pneumonia, unspecified organism Status: Acute Assessment and Plan: Continue with nebulizer treatments CTA was read as the following1. No pulmonary embolus identified. 2. Patchy airspace opacities throughout the lungs, consistent with multifocal pneumonia. The patient was started on doxycycline and Rocephin. Sputum and blood cultures are pending. Tailor antibiotics according to cultures and sensitivities Tylenol for pain or fever. Continue oxygen as needed. (2) Acute respiratory failure with hypoxia: Code(s): J96.01 - Acute respiratory failure with hypoxia Status: Acute Assessment and Plan: See plan as above (3) Cigarette smoker: Code(s): F17.210 - Nicotine dependence, cigarettes, uncomplicated Status: Acute Assessment and Plan: Patient was encouraged to stop smoking and we discussed smoking cessation for approximately 5 minutes. Continue with smoking cessation. (4) Hypothyroidism: Code(s): E03.9 - Hypothyroidism, unspecified Status: Acute Assessment and Plan: Continue with levothyroxine and check thyroid level. (5) JULIAN (obstructive sleep apnea): Code(s): G47.33 - Obstructive sleep apnea (adult) (pediatric) Status: Acute Assessment and Plan: The patient stated that she has sleep apnea and that she is getting ready to redo her test to see if she needs to be on different settings. A CPAP/BiPAP was ordered for here to titrate to home settings. (6) COPD (chronic obstructive pulmonary disease): Code(s): J44.9 - Chronic obstructive pulmonary disease, unspecified Status: Acute Assessment and Plan: Solu-Medrol was given and nebulizer treatments. Wean off of oxygen when able. (7) Hypertension: Qualifiers: Hypertension type: essential hypertension Qualified Code(s): I10 - Essential (primary) hypertension Code(s): I10 - Essential (primary) hypertension Status: Acute Assessment and Plan: Continue with amlodipine if map is greater than 65. (8) Anxiety and depression: Code(s): F41.9 - Anxiety disorder, unspecified; F32.9 - Major depressive disorder, single episode, unspecified Status: Acute Assessment and Plan: Continue with sertraline (9) Chronic back pain: Code(s): M54.9 - Dorsalgia, unspecified; G89.29 - Other chronic pain Status: Acute Assessment and Plan: Continue with muscle relaxers that she takes at home. (10) Dysphagia: Code(s): R13.10 - Dysphagia, unspecified Status: Acute Assessment and Plan: GI consult Subjective Date/time seen: 12/04/22 10:26 Interval history: No new complaints Still complaining of lower back pain. Exam Narrative: Morbidly obese Patient is comfortable, NAD HEENT: eyes are clear and none icteric LUNGS: Normal respiratory effort ABD: Distended Lower extremities: no edema SKIN: nonjaundiced Neuro: grossly intact. Objective Data Vital Signs Vital Signs: Vital Signs - 24 hr 12/03/22 13:45 12/03/22 13:59 12/03/22 12:00 Temperature Pulse Rate 90 85 103 H Respiratory Rate 18 18 Blood Pressure Pulse Oximetry Oxygen Delivery Oxygen Flow Rate 12/03/22 14:00 12/03/22 11:30 12/03/22 16:00 Temperature 97.6 F Pulse Rate 100 99 Respiratory Rate 19 Blood Pressure 140/88 Pulse Oximetry 96 95 Oxygen Delivery Room Air Oxygen Flow Rate 12/03/22 19:40 12/03/22 20:00 12/03/22 20:00 Temperature 96.5 F L Pulse Rate 96 109 H 96 Respiratory Rate 20 20 Blood Pressure 135/89 Pulse Oximetry 95 95 Oxygen Delivery Room Air Oxygen Flow Rate 12/03/22 19:30 12/03/22 23:20 12/03/22 19:30 Temperature Pulse Rate 99 96 Respiratory Rate 18 18 Blood Pressure Pulse Oximetry 82 L 94 Oxygen Delivery Room Air Autopap Oxygen Flow Rate 05
--- NOTE | 2022-12-04 10:47 | WPDANESEPPF ---
Anes - Initial Pre Proc Eval Procedure: Operation Date: 12/04/22 16:00 Proposed Procedures p Esophagogastroduodenoscopy - Stephen Fatima MD Date/Time: 12/04/22 10:47 Surgeon: Gaby Hill DO Pre Op Diagnosis: acute respiratory failure with hypoxia,multifocal Patient Data Age: 62 Gender: F Height: 1.7 m Weight: 91.6 kg Last Vital Signs Temp 97.0 F L 12/04/22 10:44 Pulse 96 12/04/22 10:44 Resp 22 H 12/04/22 10:44 BP 132/88 12/04/22 10:44 Pulse Ox 93 12/04/22 10:44 O2 Del Method Nasal Cannula 12/04/22 10:44 O2 Flow Rate 3 12/04/22 10:44 Allergies Allergy/AdvReac Type Severity Reaction Status Date / Time sulfamethoxazole Allergy Mild JOINT Verified 12/04/22 10:43 SWELLING clarithromycin Allergy Unknown Swelling Verified 12/04/22 10:43 gabapentin Allergy Unknown Joint pain Verified 12/04/22 10:43 trimethoprim Allergy Unknown JOINT Verified 12/04/22 10:43 SWELLING codeine AdvReac Unknown NAUSEA - Verified 12/04/22 10:43 CAN TAKE LORTAB Home Medications Medication Instructions Recorded Confirmed Type levothyroxine 137 mcg tablet 137 mcg PO DAILY #30 tabs 12/01/21 11/29/22 Rx albuterol sulfate 90 mcg/actuation 2 inh inhalation Q4-6H #18 grams 07/20/22 11/29/22 Rx aerosol inhaler (ProAir HFA) amlodipine 5 mg tablet 5 mg PO DAILY #30 tabs 09/15/22 11/29/22 Rx aripiprazole 5 mg tablet 5 mg PO QHS 09/30/22 11/29/22 History cyclobenzaprine 10 mg tablet 10 mg PO HS PRN muscle spasm #20 11/14/22 11/29/22 Rx tabs benzonatate 200 mg capsule 200 mg PO BID PRN cough #20 caps 11/24/22 11/29/22 Rx sertraline 100 mg tablet 100 mg PO DAILY 11/29/22 11/29/22 History Laboratory Tests 12/04/22 05:26 WBC 10.8 H K/mm3 (4.5-10.0) RBC 4.67 M/mm3 (4.2-5.4) Hgb 13.7 g/dL (12.0-15.0) Hct 43.7 % (37.0-47.0) MCV 93.6 fl (80-100) MCH 29.3 pg (26-34) MCHC 31.4 L g/dl (32-36) RDW 14.8 H % (11.5-14.5) Plt Count 263 k/mm3 (150-375) MPV 9.2 fl (7.4-10.4) Sodium 135 L mmol/L (137-145) Potassium 4.8 mmol/L (3.4-5.0) Chloride 98 mmol/L (98-107) Carbon Dioxide 30 mmol/L (22-30) Anion Gap 7 L mmol/L (8-16) BUN 29 H mg/dL (7-17) Creatinine 0.80 mg/dL (0.7-1.0) Estim Creat Clear Calc 75 ml/min Estimated GFR > 60 (59 - ) Glucose 132 H mg/dL (65-110) Calcium 8.6 mg/dL (8.4-10.2) Magnesium 2.2 mg/dL (1.6-2.3) Patient hx anesthesia problems: none Family hx anesthesia problems: none Results Review: All pre-operative results and documents have been reviewed as part of the pre-operative evaluation. [facility] Past Medical History Medical History (Updated 12/03/22 @ 17:35 by Stephen Fatima MD) Adenomatous colon polyp Anxiety and depression Chemical dependency Chronic back pain COPD (chronic obstructive pulmonary disease) Diverticulosis Failure to thrive in adult GERD (gastroesophageal reflux disease) Hypertension Hypothyroidism Nausea & vomiting JULIAN (obstructive sleep apnea) Pancreatitis Peripheral neuropathy Pneumonia Pulmonary emphysema Pure hypercholesterolemia Seizures TIA (transient ischemic attack) Tracheostomy dependence Surgical History Surgical History H/O neck surgery C6-7 fusion Hx of cholecystectomy Hx of tonsillectomy Secondary to sepsis/ARDS Total knee replacement status Family History Family History Sibling Patient's sister is in good health Patient's brother is in good health Depression Mother Family history of malignant neoplasm of breast in first degree relative, Onset Age: 26 Patient's mother is Father Patient's father is in good health Other Family history of alcoholism Family history of lung disease Family history of malignant neopla
[2022-12-04] MEDS: LACTATED RINGERS 1,000 ML 150 ML IV CONT (10:49)
--- NOTE | 2022-12-04 11:06 | SUR.OPER ---
PATIENT HAD A LOT OF SECRETIONS AND COUGHING DURING CASE. CAFETERIA OPERATOR USED ORAL SUCTION ON THE PATIENT.
[2022-12-04] MEDS: amLODIPine BESYLATE 5 MG TABLET PO (11:56)
[2022-12-04] MEDS: SERTRALINE HCL 50 MG TABLET 100 MG PO (11:57)
[2022-12-04] MEDS: DOXYCYCLINE HYCLATE 100 MG TABLET PO (11:57)
[2022-12-04] MEDS: AMOXICILLIN/CLAVULANATE K 875-125 MG TAB 1 TABLET PO ×2 (11:57→20:08)
[2022-12-04] MEDS: ENOXAPARIN 40 MG/0.4 ML SYRINGE SUB-Q (12:14)
[2022-12-04] MEDS: LIDOCAINE 5% PATCH 2 PATCH TRANSDERM (12:14)
[2022-12-04] MEDS: HYDROcodone/acetaminophen (*CRX) 5-325 MG TABLET 2 TAB PO ×2 (12:15→15:48)
[2022-12-04] MEDS: SUCRALFATE SUSP 100 MG/ML 10 ML UDC 1000 MG PO ×3 (12:15→20:08)
[2022-12-04] MEDS: guaiFENesin/DEXTROMETHORPHAN 10 ML UDC PO (15:48)
[2022-12-04] MEDS: SODIUM CHLORIDE 0.9% IV 1,000 ML 75 ML IV CONT (16:53)
[2022-12-04] MEDS: ARIPiprazole 5 MG TABLET PO (20:09)
[2022-12-04] MEDS: PANTOPRAZOLE 40 MG TABLET PO (20:09)
[2022-12-05] VITALS (17 sets, daily range): BP systolic 94–153; BP diastolic 59–86; PULSE 81–95; RESP 18–21; TEMP 36–36.8; O2SAT 92–97
[2022-12-05] MEDS: IPRATROPIUM BR 0.02% INH SOLN 0.5 MG/2.5 ML VIAL INHALATION ×4 (02:49→21:04)
[2022-12-05] MEDS: LEVALBUTEROL NEB 1.25 MG/3 ML 0.63 MG INHALATION ×4 (02:49→21:04)
[2022-12-05 05:14] LABS: Hematocrit 44.5 % (37.0-47.0); Hemoglobin 14.6 g/dL (12.0-15.0); Mean Corpuscular HGB Conc 32.8 g/dl (32-36); Mean Corpuscular Hemoglobin 30.1 pg (26-34); Mean Corpuscular Volume 91.8 fl (80-100); Platelet Count Result 262 k/mm3 (150-375); Red Blood Count 4.85 M/mm3 (4.2-5.4); Red Cell Distribution Width 14.8 % (11.5-14.5); White Blood Count 10.7 K/mm3 (4.5-10.0)
[2022-12-05] MEDS: LEVOTHYROXINE SODIUM 25 MCG TABLET PO (05:24)
[2022-12-05] MEDS: LEVOTHYROXINE SODIUM 112 MCG TABLET PO (05:24)
[2022-12-05] MEDS: SUCRALFATE SUSP 100 MG/ML 10 ML UDC 1000 MG PO ×4 (05:24→21:28)
[2022-12-05 05:26] LABS: Anion Gap 4 mmol/L (8-16); Blood Urea Nitrogen 33 mg/dL (7-17); Calcium 8.3 mg/dL (8.4-10.2); Carbon Dioxide 31 mmol/L (22-30); Chloride 99 mmol/L (98-107); Estimated CRCL calculation 75 ml/min; Estimated Glomerular Filt Rate > 60; Glucose 85 mg/dL (65-110); Magnesium 2.1 mg/dL (1.6-2.3); Potassium 3.9 mmol/L (3.4-5.0); Sodium 134 mmol/L (137-145)
[2022-12-05] MEDS: HYDROcodone/acetaminophen (*CRX) 5-325 MG TABLET 2 TAB PO ×4 (06:44→22:36)
--- NOTE | 2022-12-05 06:56 | WPDANESPN ---
Anes - Prog Note Post-Op Date/Time: 12/05/22 06:56 Cardiovascular status: normal Respiratory status: normal Airway patency: baseline Mental status: baseline Post-Op hydration status: normal Vital Signs: Last Vital Signs Temp 36.0 C L 12/05/22 04:12 Pulse 82 12/05/22 04:12 Resp 18 12/05/22 04:12 BP 153/86 H 12/05/22 04:12 Pulse Ox 97 12/05/22 04:12 O2 Del Method Room Air 12/04/22 20:00 O2 Flow Rate 3 12/04/22 21:05 Pain Score (VAS): 2 I/O: Intake & Output 12/04/22 12/04/22 12/05/22 15:59 23:59 07:59 Intake Total 1372 762 490 Output Total 4040 564 0312 Balance -478 362 -910 Laboratory Tests 12/05/22 04:39 12/05/22 04:39 12/05/22 04:39 WBC 10.7 H RBC 4.85 Hgb 14.6 Hct 44.5 MCV 91.8 MCH 30.1 MCHC 32.8 RDW 14.8 H Plt Count 262 MPV 9.0 Sodium 134 L Potassium 3.9 Chloride 99 Carbon Dioxide 31 H Anion Gap 4 L BUN 33 H Creatinine 0.80 Estim Creat Clear Calc 75 Estimated GFR > 60 Glucose 85 Calcium 8.3 L Magnesium 2.1 Post-procedural complaints: none Patient Feedback: Patient satisfied with anesthetic care.
[2022-12-05] MEDS: SODIUM CHLORIDE 0.9% IV 1,000 ML 75 ML IV CONT (07:34)
[2022-12-05] MEDS: ENOXAPARIN 40 MG/0.4 ML SYRINGE SUB-Q (08:44)
[2022-12-05] MEDS: amLODIPine BESYLATE 5 MG TABLET PO (08:44)
[2022-12-05] MEDS: AMOXICILLIN/CLAVULANATE K 875-125 MG TAB 1 TABLET PO ×2 (08:44→20:32)
[2022-12-05] MEDS: CYCLOBENZAPRINE HCL 10 MG TABLET PO ×3 (08:45→20:32)
[2022-12-05] MEDS: LIDOCAINE 5% PATCH 2 PATCH TRANSDERM (08:45)
[2022-12-05] MEDS: SERTRALINE HCL 50 MG TABLET 100 MG PO (08:45)
[2022-12-05] MEDS: PANTOPRAZOLE 40 MG TABLET PO ×2 (08:45→20:32)
[2022-12-05] MEDS: methylPREDNISolone SOD SUCC 125 MG VIAL 60 MG IV PUSH (08:45)
--- NOTE | 2022-12-05 11:14 | PM.DS ---
DS: Admitting Diagnosis Discharge Date December 05, 2022 Admitting Diagnosis Acute respiratory failure, COPD and pneumonia DS: Discharge Diagnosis Discharge Diagnosis (1) Multifocal pneumonia: Code(s): J18.9 - Pneumonia, unspecified organism Status: Acute Assessment and Plan: Continue with nebulizer treatments CTA was read as the following1. No pulmonary embolus identified. 2. Patchy airspace opacities throughout the lungs, consistent with multifocal pneumonia. The patient was started on doxycycline and Rocephin. Sputum and blood cultures are pending. Tailor antibiotics according to cultures and sensitivities Tylenol for pain or fever. Continue oxygen as needed. (2) Acute respiratory failure with hypoxia: Code(s): J96.01 - Acute respiratory failure with hypoxia Status: Acute Assessment and Plan: See plan as above (3) Cigarette smoker: Code(s): F17.210 - Nicotine dependence, cigarettes, uncomplicated Status: Acute Assessment and Plan: Patient was encouraged to stop smoking and we discussed smoking cessation for approximately 5 minutes. Continue with smoking cessation. (4) Hypothyroidism: Code(s): E03.9 - Hypothyroidism, unspecified Status: Acute Assessment and Plan: Continue with levothyroxine and check thyroid level. (5) JULIAN (obstructive sleep apnea): Code(s): G47.33 - Obstructive sleep apnea (adult) (pediatric) Status: Acute Assessment and Plan: The patient stated that she has sleep apnea and that she is getting ready to redo her test to see if she needs to be on different settings. A CPAP/BiPAP was ordered for here to titrate to home settings. (6) COPD (chronic obstructive pulmonary disease): Code(s): J44.9 - Chronic obstructive pulmonary disease, unspecified Status: Acute Assessment and Plan: Solu-Medrol was given and nebulizer treatments. Wean off of oxygen when able. (7) Hypertension: Qualifiers: Hypertension type: essential hypertension Qualified Code(s): I10 - Essential (primary) hypertension Code(s): I10 - Essential (primary) hypertension Status: Acute Assessment and Plan: Continue with amlodipine if map is greater than 65. (8) Anxiety and depression: Code(s): F41.9 - Anxiety disorder, unspecified; F32.9 - Major depressive disorder, single episode, unspecified Status: Acute Assessment and Plan: Continue with sertraline (9) Chronic back pain: Code(s): M54.9 - Dorsalgia, unspecified; G89.29 - Other chronic pain Status: Acute Assessment and Plan: Continue with muscle relaxers that she takes at home. (10) Dysphagia: Code(s): R13.10 - Dysphagia, unspecified Status: Acute Assessment and Plan: GI consult DS: Summary Hospital Course Hospital Course: Admitted for respiratory failure and pneumonia. Also had some GI complaints and dysphagia. Patient responded antibiotics and steroids. Will get home oxygen evaluation. Regarding her dysphagia and epigastric pain she was found to have some gastritis and duodenitis and should be sent home on Carafate and PPI. Follow-up with GI. Time Spent with Patient Time attestation: Total time spent providing and/or coordinating discharge services: Exam Narrative: Morbidly obese Patient is comfortable, NAD HEENT: eyes are clear and none icteric LUNGS: Normal respiratory effort ABD: Distended Lower extremities: no edema SKIN: nonjaundiced Neuro: grossly intact. DS: Data Data Completed and Pending Pending studies at discharge: Pending at discharge 12/04/22 11:05 Surgical [PTH] Routine Labs on day of discharge: Labs from last 24 hours 12/05/22 04:39 WBC 10.7 H RBC 4.85 Hgb 14.6 Hct 44.5 MCV 91.8 MCH 30.1 MCHC 32.8 RDW 14.8 H Plt Count 262 MPV 9.0 Sodium 134 L Potassium 3.9 Chloride 99 Carbon Dioxide 31 H Anion Gap
--- NOTE | 2022-12-05 12:47 | PCRCNOTE ---
Attempted home O2 eval today, pt saturation was in the low 80's on 4 liters when she sat up in bed. Pt became lethargic and stated she did not feel well and needed to lay down. Saturation was low 90's on 4 liters at rest. Will attempt again tomorrow.
--- NOTE | 2022-12-05 13:37 | WPDGIPROGNO ---
Progress Note: A&P Assessment and Plan (1) Erosive gastritis: Code(s): K29.60 - Other gastritis without bleeding Status: Acute Assessment and Plan: given findings will need protonix twice daily carafate with meals for 2 weeks will set up EGD in 3-4 months to assess healing (2) Nausea & vomiting: Code(s): R11.2 - Nausea with vomiting, unspecified Status: Acute Assessment and Plan: improved and tolerating diet (3) GERD (gastroesophageal reflux disease): Code(s): K21.9 - Gastro-esophageal reflux disease without esophagitis Status: Acute (4) Multifocal pneumonia: Code(s): J18.9 - Pneumonia, unspecified organism Status: Acute Assessment and Plan: better and on treatment probably going home (5) COPD (chronic obstructive pulmonary disease): Code(s): J44.9 - Chronic obstructive pulmonary disease, unspecified Status: Acute Subjective Date/time seen: 12/05/22 13:37 Interval history: egd yesterday with esophagitis and ulcerative gastritis/duodenitis she is feeling better Review of Systems Review of Systems: All systems reviewed & are unremarkable except as noted in HPI and below Exam Const: General: comfortable Other: comfortable HENMT: Face/Nose/Sinus: Normal nares present Eyes: General: appearance normal, both eyes and all related structures Neck: Neck: no JVD Resp: Auscultation: no rales and diminished lung sounds Cardio: Rate: regular rate Rhythm: regular rhythm GI: Inspection: non-distended GI Palp: Yes Soft to palpation, No Tenderness to palpation present (GI) and No Guarding due to palpation present (GI) Auscultation: normal bowel sounds Skin: General skin exam: normal color Neuro: Speech: normal speech Motor exam (neuro): 5/5 motor strength present throughout Extrem: General: normal to inspection Psych: Mental Status: mental status grossly normal Objective Data Vital Signs Vital Signs: Vital Signs - 24 hr 12/04/22 13:48 12/04/22 13:51 12/04/22 14:02 Temperature Pulse Rate 95 95 99 Respiratory Rate 18 18 18 Blood Pressure Pulse Oximetry 96 Oxygen Delivery Nasal Cannula Oxygen Flow Rate 3 12/04/22 15:36 12/04/22 14:00 12/04/22 16:00 Temperature 97.6 F Pulse Rate 97 101 H Respiratory Rate 19 Blood Pressure 114/80 Pulse Oximetry 96 Oxygen Delivery Room Air Oxygen Flow Rate 12/04/22 19:42 12/04/22 21:06 12/04/22 20:00 Temperature 96.2 F L Pulse Rate 75 89 89 Respiratory Rate 18 18 18 Blood Pressure 138/85 Pulse Oximetry 99 99 Oxygen Delivery Room Air Oxygen Flow Rate 12/04/22 20:00 12/05/22 02:52 12/04/22 21:20 Temperature Pulse Rate 74 87 86 Respiratory Rate 18 18 Blood Pressure Pulse Oximetry Oxygen Delivery Oxygen Flow Rate 12/04/22 21:05 12/05/22 03:03 12/05/22 00:00 Temperature Pulse Rate 85 86 Respiratory Rate 18 Blood Pressure Pulse Oximetry 94 Oxygen Delivery Oxygen Flow Rate 3 12/05/22 04:00 12/05/22 04:12 12/05/22 08:00 Temperature 96.8 F L Pulse Rate 81 82 Respiratory Rate 18 Blood Pressure 153/86 H Pulse Oximetry 97 97 Oxygen Delivery Nasal Cannula Oxygen Flow Rate 3 12/05/22 08:00 12/05/22 08:00 12/05/22 08:08 Temperature Pulse Rate 88 83 Respiratory Rate 18 18 Blood Pressure Pulse Oximetry 96 Oxygen Delivery Nasal Cannula Oxygen Flow Rate 3 12/05/22 08:00 12/05/22 13:21 12/05/22 13:30 Temperature Pulse Rate 86 84 81 Respiratory Rate 18 18 Blood Pressure Pulse Oximetry Oxygen Delivery Oxygen Flow Rate Intake/Output Intake/Output: Intake & Output 12/02/22 12/03/22 12/04/22 12/05/22 23:59 23:59 23:59 23:59 Intake Total 2668 2710 2524 2430 Output Total 2050 2800 3450 1400 Balance 618 -90 -926 1030 Meds/Results Medications: Active Medications Generic Name Dose Route Start Last Admin Trade
[2022-12-05] MEDS: polyethylene glycoL 3350 17 GM POWD.PACK PO (15:43)
[2022-12-05] MEDS: guaiFENesin/DEXTROMETHORPHAN 10 ML UDC PO (16:17)
[2022-12-05] MEDS: ARIPiprazole 5 MG TABLET PO (20:32)
[2022-12-06] VITALS (21 sets, daily range): BP systolic 108–151; BP diastolic 71–97; PULSE 74–105; RESP 16–20; TEMP 36.1–36.6; O2SAT 86–96
[2022-12-06] MEDS: IPRATROPIUM BR 0.02% INH SOLN 0.5 MG/2.5 ML VIAL INHALATION ×4 (02:36→20:46)
[2022-12-06] MEDS: LEVALBUTEROL NEB 1.25 MG/3 ML 0.63 MG INHALATION ×4 (02:36→20:47)
[2022-12-06] MEDS: HYDROcodone/acetaminophen (*CRX) 5-325 MG TABLET 2 TAB PO ×4 (02:53→20:33)
[2022-12-06 05:20] LABS: Hematocrit 43.5 % (37.0-47.0); Hemoglobin 13.7 g/dL (12.0-15.0); Mean Corpuscular HGB Conc 31.5 g/dl (32-36); Mean Corpuscular Hemoglobin 29.8 pg (26-34); Mean Corpuscular Volume 94.6 fl (80-100); Mean Platelet Volume 9.2 fl (7.4-10.4); Platelet Count Result 243 k/mm3 (150-375); White Blood Count 9.2 K/mm3 (4.5-10.0)
[2022-12-06 05:30] LABS: Anion Gap 3 mmol/L (8-16); Blood Urea Nitrogen 41 mg/dL (7-17); Calcium 8.1 mg/dL (8.4-10.2); Carbon Dioxide 33 mmol/L (22-30); Chloride 98 mmol/L (98-107); Estimated CRCL calculation 75 ml/min; Estimated Glomerular Filt Rate > 60; Glucose 79 mg/dL (65-110); Magnesium 2.4 mg/dL (1.6-2.3); Potassium 4.4 mmol/L (3.4-5.0); Sodium 134 mmol/L (137-145)
[2022-12-06] MEDS: LEVOTHYROXINE SODIUM 112 MCG TABLET PO (05:44)
[2022-12-06] MEDS: SUCRALFATE SUSP 100 MG/ML 10 ML UDC 1000 MG PO ×4 (05:44→20:34)
[2022-12-06] MEDS: LEVOTHYROXINE SODIUM 25 MCG TABLET PO (05:44)
[2022-12-06] MEDS: LIDOCAINE 5% PATCH 2 PATCH TRANSDERM (09:22)
[2022-12-06] MEDS: CYCLOBENZAPRINE HCL 10 MG TABLET PO ×2 (09:22→16:34)
[2022-12-06] MEDS: PANTOPRAZOLE 40 MG TABLET PO ×2 (09:23→20:34)
[2022-12-06] MEDS: ENOXAPARIN 40 MG/0.4 ML SYRINGE SUB-Q (09:23)
[2022-12-06] MEDS: methylPREDNISolone SOD SUCC 125 MG VIAL 60 MG IV PUSH (09:23)
[2022-12-06] MEDS: AMOXICILLIN/CLAVULANATE K 875-125 MG TAB 1 TABLET PO (09:23)
[2022-12-06] MEDS: amLODIPine BESYLATE 5 MG TABLET PO (09:23)
[2022-12-06] MEDS: SERTRALINE HCL 50 MG TABLET 100 MG PO (09:23)
--- NOTE | 2022-12-06 11:46 | PM.IMPN ---
Progress Note: A&P Assessment and Plan (1) Multifocal pneumonia: Code(s): J18.9 - Pneumonia, unspecified organism Status: Acute Assessment and Plan: Continue with nebulizer treatments (2) Acute respiratory failure with hypoxia: Code(s): J96.01 - Acute respiratory failure with hypoxia Status: Acute Assessment and Plan: See plan as above (3) Cigarette smoker: Code(s): F17.210 - Nicotine dependence, cigarettes, uncomplicated Status: Acute Assessment and Plan: Patient was encouraged to stop smoking and we discussed smoking cessation for approximately 5 minutes. Continue with smoking cessation. (4) Hypothyroidism: Code(s): E03.9 - Hypothyroidism, unspecified Status: Acute Assessment and Plan: Continue with levothyroxine and check thyroid level. (5) JULIAN (obstructive sleep apnea): Code(s): G47.33 - Obstructive sleep apnea (adult) (pediatric) Status: Acute Assessment and Plan: The patient stated that she has sleep apnea and that she is getting ready to redo her test to see if she needs to be on different settings. A CPAP/BiPAP was ordered for here to titrate to home settings. (6) COPD (chronic obstructive pulmonary disease): Code(s): J44.9 - Chronic obstructive pulmonary disease, unspecified Status: Acute Assessment and Plan: Solu-Medrol was given and nebulizer treatments. Wean off of oxygen when able. (7) Hypertension: Qualifiers: Hypertension type: essential hypertension Qualified Code(s): I10 - Essential (primary) hypertension Code(s): I10 - Essential (primary) hypertension Status: Acute Assessment and Plan: Continue with amlodipine if map is greater than 65. (8) Anxiety and depression: Code(s): F41.9 - Anxiety disorder, unspecified; F32.9 - Major depressive disorder, single episode, unspecified Status: Acute Assessment and Plan: Continue with sertraline (9) Chronic back pain: Code(s): M54.9 - Dorsalgia, unspecified; G89.29 - Other chronic pain Status: Acute Assessment and Plan: Continue with muscle relaxers that she takes at home. (10) Dysphagia: Code(s): R13.10 - Dysphagia, unspecified Status: Acute Assessment and Plan: GI consult Subjective Date/time seen: 12/06/22 11:46 Interval history: Still pretty weak Exam Narrative: Morbidly obese Patient is comfortable, NAD HEENT: eyes are clear and none icteric LUNGS: Normal respiratory effort ABD: Distended Lower extremities: no edema SKIN: nonjaundiced Neuro: grossly intact. Objective Data Vital Signs Vital Signs: Vital Signs - 24 hr 12/05/22 13:21 12/05/22 13:30 12/05/22 12:00 Temperature Pulse Rate 84 81 84 Respiratory Rate 18 18 Blood Pressure Pulse Oximetry Oxygen Delivery Oxygen Flow Rate 12/05/22 14:35 12/05/22 16:00 12/05/22 19:26 Temperature 97.6 F 98.3 F Pulse Rate 82 85 92 Respiratory Rate 20 21 H Blood Pressure 94/59 L 118/80 Pulse Oximetry 95 95 Oxygen Delivery Oxygen Flow Rate 12/05/22 21:06 12/05/22 21:07 12/05/22 20:00 Temperature Pulse Rate 94 94 Respiratory Rate 18 18 Blood Pressure Pulse Oximetry 92 92 Oxygen Delivery Nasal Cannula Nasal Cannula Oxygen Flow Rate 3 3 12/06/22 02:39 12/05/22 21:20 12/05/22 20:00 Temperature Pulse Rate 105 H 90 95 Respiratory Rate 18 18 Blood Pressure Pulse Oximetry Oxygen Delivery Oxygen Flow Rate 12/06/22 00:00 12/06/22 03:20 12/06/22 04:00 Temperature 97 F L Pulse Rate 101 H 80 84 Respiratory Rate 17 Blood Pressure 151/97 H Pulse Oximetry 95 Oxygen Delivery Oxygen Flow Rate 12/06/22 02:53 12/06/22 08:00 Temperature Pulse Rate 102 H 78 Respiratory Rate 18 Blood Pressure Pulse Oximetry Oxygen Delivery Oxygen Flow Rate Intake/Output Intake/Output: I
--- NOTE | 2022-12-06 17:03 | HOMEO2EVAL ---
Evaluation was performed at [facility] Home Oxygen Evaluation RC: Home Oxygen (O2) Evaluation Start: 12/05/22 11:10 Freq: ONCE Status: Active Protocol: RPE Activity Type Activity Date Activity User E-sign Co-sign Detail Recorded Client Recorded Date Recorded By Document 12/06/22 16:53 MDW [email or web address] 12/06/22 17:03 MDW Document 12/06/22 16:55 MDW [email or web address] 12/06/22 17:03 MDW Document 12/06/22 16:57 MDW [email or web address] 12/06/22 17:03 MDW Document 12/06/22 16:59 MDW [email or web address] 12/06/22 17:03 MDW 12/06/22 12/06/22 12/06/22 16:53 16:55 16:57 Home O2 Evaluation [Oxygen] -Test Phase Resting Exercise Exercise -Oxygen Delivery Room Air Nasal Cannula Nasal Cannula -Oxygen Flow Rate (L/min) 1 3 -Fraction of Inspired Oxygen (%) 21 24 32 [Pulse Oximetry] -Pulse Oximetry (90-100 %) 93 88 L 86 L [Pulse Rate] -Pulse Rate (60-100 beats/min) 83 90 93 [Evaluation] -Activity Tolerance Good Fair Fair -Rating of Perceived Dyspnea (PD) +1 Mild, +3 Moderate +3 Moderate Noticeable to Difficulty, But Difficulty, But the Participant Can Continue Can Continue but Not to an Observer -Rate of Perceived Exertion (PE) 6 Very, very 13 Somewhat 13 Somewhat Query Text:Click the Protocol Button light Hard Hard to View the RPE Scale [Exercise] -Ambulation Distance (feet) 15 25 -Ambulation Distance (meters) 4.57 7.61 [Comments] -Home Oxygen Evaluation Comments 12/06/22 16:59 Home O2 Evaluation [Oxygen] -Test Phase Exercise -Oxygen Delivery Nasal Cannula -Oxygen Flow Rate (L/min) 4 -Fraction of Inspired Oxygen (%) 36 [Pulse Oximetry] -Pulse Oximetry (90-100 %) 94 [Pulse Rate] -Pulse Rate (60-100 beats/min) 97 [Evaluation] -Activity Tolerance Fair -Rating of Perceived Dyspnea (PD) +3 Moderate Difficulty, But Can Continue -Rate of Perceived Exertion (PE) 13 Somewhat Query Text:Click the Protocol Button Hard to View the RPE Scale [Exercise] -Ambulation Distance (feet) 40 -Ambulation Distance (meters) 12.19 [Comments] -Home Oxygen Evaluation Comments Patient needs 4L with activity.
[2022-12-06] MEDS: ARIPiprazole 5 MG TABLET PO (20:35)
[2022-12-07] VITALS (11 sets, daily range): BP systolic 125; BP diastolic 73; PULSE 70–90; RESP 15–19; TEMP 36.3; O2SAT 82–96
[2022-12-07] MEDS: CYCLOBENZAPRINE HCL 10 MG TABLET PO ×2 (00:44→08:12)
[2022-12-07] MEDS: HYDROcodone/acetaminophen (*CRX) 5-325 MG TABLET 2 TAB PO ×3 (00:44→11:23)
[2022-12-07] MEDS: LEVALBUTEROL NEB 1.25 MG/3 ML 0.63 MG INHALATION ×2 (03:23→09:51)
[2022-12-07] MEDS: IPRATROPIUM BR 0.02% INH SOLN 0.5 MG/2.5 ML VIAL INHALATION ×2 (03:23→09:51)
[2022-12-07 05:19] LABS: Hematocrit 42.7 % (37.0-47.0); Hemoglobin 13.4 g/dL (12.0-15.0); Mean Corpuscular HGB Conc 31.4 g/dl (32-36); Mean Corpuscular Hemoglobin 29.6 pg (26-34); Mean Corpuscular Volume 94.3 fl (80-100); Mean Platelet Volume 9.1 fl (7.4-10.4); Platelet Count Result 224 k/mm3 (150-375); Red Blood Count 4.53 M/mm3 (4.2-5.4); Red Cell Distribution Width 14.9 % (11.5-14.5); White Blood Count 10.1 K/mm3 (4.5-10.0)
[2022-12-07 05:30] LABS: Anion Gap 2 mmol/L (8-16); Blood Urea Nitrogen 35 mg/dL (7-17); Calcium 8.2 mg/dL (8.4-10.2); Carbon Dioxide 33 mmol/L (22-30); Chloride 99 mmol/L (98-107); Estimated CRCL calculation 75 ml/min; Estimated Glomerular Filt Rate > 60; Glucose 93 mg/dL (65-110); Magnesium 2.5 mg/dL (1.6-2.3); Potassium 4.3 mmol/L (3.4-5.0); Sodium 134 mmol/L (137-145)
[2022-12-07] MEDS: LEVOTHYROXINE SODIUM 112 MCG TABLET PO (06:42)
[2022-12-07] MEDS: SUCRALFATE SUSP 100 MG/ML 10 ML UDC 1000 MG PO ×2 (06:42→11:19)
[2022-12-07] MEDS: LEVOTHYROXINE SODIUM 25 MCG TABLET PO (06:42)
[2022-12-07] MEDS: ENOXAPARIN 40 MG/0.4 ML SYRINGE SUB-Q (08:10)
[2022-12-07] MEDS: PANTOPRAZOLE 40 MG TABLET PO (08:11)
[2022-12-07] MEDS: SERTRALINE HCL 50 MG TABLET 100 MG PO (08:11)
[2022-12-07] MEDS: amLODIPine BESYLATE 5 MG TABLET PO (08:11)
[2022-12-07] MEDS: LIDOCAINE 5% PATCH 2 PATCH TRANSDERM (08:11)
[2022-12-07] MEDS: methylPREDNISolone SOD SUCC 125 MG VIAL 60 MG IV PUSH (08:11)
[2022-12-07] MEDS: polyethylene glycoL 3350 17 GM POWD.PACK PO (08:24)
--- NOTE | 2022-12-07 10:07 | PM.DS ---
DS: Admitting Diagnosis Discharge Date 12/07/22 Admitting Diagnosis pna, respiratory failure DS: Discharge Diagnosis Discharge Diagnosis (1) Multifocal pneumonia: Code(s): J18.9 - Pneumonia, unspecified organism Status: Acute Assessment and Plan: Continue with nebulizer treatments (2) Acute respiratory failure with hypoxia: Code(s): J96.01 - Acute respiratory failure with hypoxia Status: Acute Assessment and Plan: See plan as above (3) Cigarette smoker: Code(s): F17.210 - Nicotine dependence, cigarettes, uncomplicated Status: Acute Assessment and Plan: Patient was encouraged to stop smoking and we discussed smoking cessation for approximately 5 minutes. Continue with smoking cessation. (4) Hypothyroidism: Code(s): E03.9 - Hypothyroidism, unspecified Status: Acute Assessment and Plan: Continue with levothyroxine and check thyroid level. (5) JULIAN (obstructive sleep apnea): Code(s): G47.33 - Obstructive sleep apnea (adult) (pediatric) Status: Acute Assessment and Plan: The patient stated that she has sleep apnea and that she is getting ready to redo her test to see if she needs to be on different settings. A CPAP/BiPAP was ordered for here to titrate to home settings. (6) COPD (chronic obstructive pulmonary disease): Code(s): J44.9 - Chronic obstructive pulmonary disease, unspecified Status: Acute Assessment and Plan: Solu-Medrol was given and nebulizer treatments. Wean off of oxygen when able. (7) Hypertension: Qualifiers: Hypertension type: essential hypertension Qualified Code(s): I10 - Essential (primary) hypertension Code(s): I10 - Essential (primary) hypertension Status: Acute Assessment and Plan: Continue with amlodipine if map is greater than 65. (8) Anxiety and depression: Code(s): F41.9 - Anxiety disorder, unspecified; F32.9 - Major depressive disorder, single episode, unspecified Status: Acute Assessment and Plan: Continue with sertraline (9) Chronic back pain: Code(s): M54.9 - Dorsalgia, unspecified; G89.29 - Other chronic pain Status: Acute Assessment and Plan: Continue with muscle relaxers that she takes at home. (10) Dysphagia: Code(s): R13.10 - Dysphagia, unspecified Status: Acute Assessment and Plan: GI consult DS: Summary Hospital Course Hospital Course: Admitted for respiratory failure and pneumonia.? Also had some GI complaints and dysphagia.? Patient responded antibiotics and steroids.? Will get home oxygen evaluation.? Regarding her dysphagia and epigastric pain she was found to have some gastritis and duodenitis and should be sent home on Carafate and PPI.? Follow-up with GI. Patient has results placement in rehab facility despite recommended this to her. Time Spent with Patient Time attestation: Total time spent providing and/or coordinating discharge services: Exam Narrative: Morbidly obese Patient is comfortable, NAD HEENT: eyes are clear and none icteric LUNGS: Normal respiratory effort ABD: Distended Lower extremities: no edema SKIN: nonjaundiced Neuro: grossly intact. DS: Data Data Completed and Pending Pending studies at discharge: Pending at discharge 12/04/22 11:05 Surgical [PTH] Routine Labs on day of discharge: Labs from last 24 hours 12/07/22 05:01 WBC 10.1 H RBC 4.53 Hgb 13.4 Hct 42.7 MCV 94.3 MCH 29.6 MCHC 31.4 L RDW 14.9 H Plt Count 224 MPV 9.1 Sodium 134 L Potassium 4.3 Chloride 99 Carbon Dioxide 33 H Anion Gap 2 L BUN 35 H Creatinine 0.80 Estim Creat Clear Calc 75 Estimated GFR > 60 Glucose 93 Calcium 8.2 L Magnesium 2.5 H Discharge Plan Discharge Attending physician on discharge: Todd Jerez Consulting providers: Stephen Fatima Discharging Clinician: Wily
--- NOTE | 2022-12-07 10:47 | HOMEO2EVAL ---
Evaluation was performed at [facility] Home Oxygen Evaluation RC: Home Oxygen (O2) Evaluation Start: 12/05/22 11:10 Freq: ONCE Status: Active Protocol: RPE Activity Type Activity Date Activity User E-sign Co-sign Detail Recorded Client Recorded Date Recorded By Document 12/06/22 16:53 MDW [email or web address] 12/06/22 17:03 MDW Document 12/06/22 16:55 MDW [email or web address] 12/06/22 17:03 MDW Document 12/06/22 16:57 MDW [email or web address] 12/06/22 17:03 MDW Document 12/06/22 16:59 MDW [email or web address] 12/06/22 17:03 MDW Document 12/07/22 10:00 PKH [email or web address] 12/07/22 10:47 PKH Document 12/07/22 10:05 PKH [email or web address] 12/07/22 10:47 PKH Document 12/07/22 10:10 PKH [email or web address] 12/07/22 10:47 PKH Document 12/07/22 10:15 PKH [email or web address] 12/07/22 10:47 PKH Document 12/07/22 10:20 PKH [email or web address] 12/07/22 10:47 PKH Document 12/07/22 10:35 PKH [email or web address] 12/07/22 10:47 PKH 12/06/22 12/06/22 12/06/22 16:53 16:55 16:57 Home O2 Evaluation [Oxygen] -Test Phase Resting Exercise Exercise -Oxygen Delivery Room Air Nasal Cannula Nasal Cannula -Oxygen Flow Rate (L/min) 1 3 -Fraction of Inspired Oxygen (%) 21 24 32 [Pulse Oximetry] -Pulse Oximetry (90-100 %) 93 88 L 86 L [Pulse Rate] -Pulse Rate (60-100 beats/min) 83 90 93 [Evaluation] -Activity Tolerance Good Fair Fair -Rating of Perceived Dyspnea (PD) +1 Mild, +3 Moderate +3 Moderate Noticeable to Difficulty, But Difficulty, But the Participant Can Continue Can Continue but Not to an Observer -Rate of Perceived Exertion (PE) 6 Very, very 13 Somewhat 13 Somewhat Query Text:Click the Protocol Button light Hard Hard to View the RPE Scale [Exercise] -Ambulation Distance (feet) 15 25 -Ambulation Distance (meters) 4.57 7.61 [Comments] -Home Oxygen Evaluation Comments [Charges] -Treatment Charges 12/06/22 12/07/22 12/07/22 16:59 10:00 10:05 Home O2 Evaluation [Oxygen] -Test Phase Exercise Resting Resting -Oxygen Delivery Nasal Cannula Room Air Nasal Cannula -Oxygen Flow Rate (L/min) 4 1 -Fraction of Inspired Oxygen (%) 36 [Pulse Oximetry] -Pulse Oximetry (90-100 %) 94 82 L 86 L [Pulse Rate] -Pulse Rate (60-100 beats/min) 97 88 87 [Evaluation] -Activity Tolerance Fair Good -Rating of Perceived Dyspnea (PD) +3 Moderate Difficulty, But Can Continue -Rate of Perceived Exertion (PE) 13 Somewhat Query Text:Click the Protocol Button Hard to View the RPE Scale [Exercise] -Ambulation Distance (feet) 40 -Ambulation Distance (meters) 12.19 [Comments] -Home Oxygen Evaluation Comments Patient needs 4L with activity. [Charges] -Treatment Charges O2 Evaluation - Inpatient 12/07/22 12/07/22 12/07/22 10:10 10:15 10:20 Home O2 Evaluation [Oxygen] -Test Phase Resting Exercise Exercise -Oxygen Delivery Nasal Cannula Nasal Cannula -Oxygen Flow Rate (L/min) 2 2 3 -Fraction of Inspired Oxygen (%) [Pulse Oximetry] -Pulse Oximetry (90-100 %) 90 87 L 92 [Pulse Rate] -Pulse Rate (60-100 beats/min) 88 88 90 [Evaluation] -Activity Tolerance -Rating of Perceived Dyspnea (PD) -Rate of Perceived Exertion (PE) Query Text:Click the Protocol Button to View the RPE Scale [Exercise] -Ambulation Distance (feet) -Ambulation Distance (meters) [Comments] -Home Oxygen Evaluation Comments [Charges] -Treatment Charges 12/07/22 10:35 Home O2 Evaluation [Oxygen] -Test Phase Resting -Oxygen Delivery Nasal Cannula -Oxygen Flow Rate (L/min) 2 -Fraction of Inspired Oxygen (%) [Pulse Oximetry] -Pulse Oximetry (90-100 %) 91 [Pulse Rate] -Pulse Rate (60-100 beats/min) 85 [Evaluation] -Activity Tolerance -Rating of Perceived Dyspnea (PD) -Rate
--- NOTE | 2022-12-07 12:24 | PCCCNOTE ---
On 12/07/22, the student, [Sofia Ho ], provided care and completed [facility] documentation on this patient. I have reviewed the student's documentation and agree with the findings.
== END 2022-12-07 12:20 | disposition home health service (06) | DRG 133 ==
LOC: ANHED 18:43 → ANH2MED 22:49
PROVIDERS: Emergency Medicine; Family Medicine; Internal Medicine Gastroenterology; Nurse Practitioner; Admitting Provider Internal Medicine; Emergency Provider General Practice; PCP Internal Medicine; Visit Provider Chiropractor
PROC: 0DJ08ZZ Inspection of Upper Intestinal Tract, Via Natural or Artificial Opening Endoscopic (ICD-10-PCS; CPT 43235; principal; 2022-12-04 16:00)
DX: J96.01 Acute respiratory failure with hypoxia (principal); J18.8 Other pneumonia, unspecified organism; J44.0 Chronic obstructive pulmonary disease with (acute) lower respiratory infection; J44.1 Chronic obstructive pulmonary disease with (acute) exacerbation; K22.2 Esophageal obstruction; G62.9 Polyneuropathy, unspecified; I10 Essential (primary) hypertension; K21.00 Gastro-esophageal reflux disease with esophagitis, without bleeding; K29.70 Gastritis, unspecified, without bleeding; K44.9 Diaphragmatic hernia without obstruction or gangrene; K29.80 Duodenitis without bleeding; K57.30 Diverticulosis of large intestine without perforation or abscess without bleeding; E03.9 Hypothyroidism, unspecified; M54.9 Dorsalgia, unspecified; G89.29 Other chronic pain; G47.33 Obstructive sleep apnea (adult) (pediatric); F17.210 Nicotine dependence, cigarettes, uncomplicated; F32.A Depression, unspecified; F41.9 Anxiety disorder, unspecified; Z20.822 Contact with and (suspected) exposure to COVID-19; Z96.659 Presence of unspecified artificial knee joint; Z86.73 Personal history of transient ischemic attack (TIA), and cerebral infarction without residual deficits; Z98.1 Arthrodesis status
CPT/HCPCS: 36415; 36600; 71045; 71275; 74175; 80048; 80053; 82375; 82805; 83050; 83605; 83735; 83880; 84443; 84484; 85025; 85027; 85380; 85610; 85730; 87040; 87081; 87636; 88305; 88312; 88342; 93005; 94618; 94640; 94660; 96361; 96365; 96366; 96367; 96372; 96375; 96376; 97110; 97116; 97161; 97165; 97530; 97535; 99291; A9270; G0378; G0379; J0131; J0360; J0696; J1650; J1885; J2405; J2704; J2930; J7030; J7120; Q9967

== ENCOUNTER 2022-12-09 12:06 | Emergency (ER) | payer OTHER, SELFPAY ==
--- NOTE | ~2022-12-09 | XR_ITS ---
[[id number] ] INDICATION: Chest pain. Recent pneumonia. TECHNIQUE: Frontal projection of the upper left ribs, frontal projection of the lower left ribs, obli que projection of all the left ribs, frontal inspiratory chest x-ray for interpretation. FINDINGS: There are no displaced rib fractures identified. There are no soft tissue abnormality see n. There is diffuse bilateral interstitial infiltrates. No significant effusion or pneumothorax. Elev ated right diaphragm. Cardiomegaly. IMPRESSION: 1:No acute displaced rib fractures. 2: Diffuse bilateral interstitial infiltrates which may represent pneumonia or edema. Reviewed, dictated and finalized at location B.
[2022-12-09 12:09] VITALS: BP 100/72; PULSE 90; TEMP 36.4; O2SAT 96
--- NOTE | 2022-12-09 12:17 | ECG_ITS ---
Measurements Intervals [place] Rate: 89 P: 56 IA: 136 QRS: 9 QRSD: 88 T: 58 QT: 351 QTc: 429 Interpretive Statements SINUS RHYTHM POSSIBLE LEFT ATRIAL ENLARGEMENT BORDERLINE ECG COMPARED TO ECG 12/03/2022 04:46:02 NO SIGNIFICANT CHANGES Electronically Signed On 12-09-2022 14:00:59 CDT by Reggie Benedict D.O.
[2022-12-09 12:28] LABS: Basophils Percent Auto 0.3 % (0.2-1.2); Eosinophils Absolute Auto 0.1 K/mm3 (0-0.3); Eosinophils Percent Auto 0.7 % (0-4.4); Hematocrit 44.5 % (37.0-47.0); Hemoglobin 14.4 g/dL (12.0-15.0); Immature Granulocyte Absolute 0.49 K/mm3 (0.00-0.031); Lymphocytes Absolute Auto 3.03 K/mm3 (0.9-3.2); Lymphocytes Percent Auto 24.7 % (18.3-44.2); Mean Corpuscular HGB Conc 32.4 g/dl (32-36); Mean Corpuscular Hemoglobin 29.8 pg (26-34); Mean Corpuscular Volume 92.1 fl (80-100); Mean Platelet Volume 9.2 fl (7.4-10.4); Monocytes Absolute Auto 1.2 K/mm3 (0.1-0.6); Monocytes Percent Auto 9.8 % (2.6-8.5); Neutrophils Absolute Auto 7.4 K/mm3 (1.3-6.7); Neutrophils Percent Auto 60.5 % (45.5-73.1); Platelet Count Result 256 k/mm3 (150-375); Red Blood Count 4.83 M/mm3 (4.2-5.4); White Blood Count 12.3 K/mm3 (4.5-10.0)
[2022-12-09 12:40] LABS: Alanine Aminotransferase 97 U/L (6-35); Albumin Level 3.5 g/dL (3.5-5.1); Alkaline Phosphatase 114 U/L (38-126); Anion Gap 4 mmol/L (8-16); Aspartate Amino Transferase 57 U/L (14-36); Bilirubin,Total 0.4 mg/dL (0.2-1.3); Blood Urea Nitrogen 28 mg/dL (7-17); Calcium 7.7 mg/dL (8.4-10.2); Carbon Dioxide 33 mmol/L (22-30); Chloride 99 mmol/L (98-107); Estimated Glomerular Filt Rate 56; Glucose 85 mg/dL (65-110); Potassium 3.2 mmol/L (3.4-5.0); Sodium 136 mmol/L (137-145)
[2022-12-09 13:01] LABS: Lactic Acid Reflex 1.5 mmol/L (0.7-2.0)
[2022-12-09] MEDS: SODIUM CHLORIDE 0.9% IV 1,000 ML 999 ML IV CONT (13:09)
--- NOTE | 2022-12-09 14:58 | ED.GENADULT ---
HPI - General Adult General Chief complaint: Weakness Stated complaint: low bp Time Seen by Provider: 12/09/22 12:19 History of Present Illness HPI narrative: Patient is a 62-year-old female who presents ER with weakness and low blood pressure. Apparently home health blood pressure on the patient was in the 70s. EMS also reports a low blood pressure of 98 mmHg and gave push dose epinephrine. Patient recently discharged with pneumonia and is on oxygen. She has no new chest pain or shortness of breath. No dizziness. Denies fevers or chills or sweats. She does report some pain in her left back over the ribs and is concerned she could have broken something from coughing. Related Data Home Medications Medication Instructions Recorded Confirmed aripiprazole 5 mg tablet 5 mg PO QHS 09/30/22 11/29/22 sertraline 100 mg tablet 100 mg PO DAILY 11/29/22 11/29/22 Allergies Allergy/AdvReac Type Severity Reaction Status Date / Time sulfamethoxazole Allergy Mild JOINT Verified 12/04/22 10:43 SWELLING clarithromycin Allergy Unknown Swelling Verified 12/04/22 10:43 gabapentin Allergy Unknown Joint pain Verified 12/04/22 10:43 Influenza Virus Vaccines Allergy Unknown Unverified 12/08/22 12:01 trimethoprim Allergy Unknown JOINT Verified 12/04/22 10:43 SWELLING codeine AdvReac Unknown NAUSEA - Verified 12/04/22 10:43 CAN TAKE LORTAB [facility] Past Medical History Medical History (Updated 12/09/22 @ 15:00 by Neri Rowell MD) Adenomatous colon polyp Anxiety and depression Chemical dependency Chronic back pain COPD (chronic obstructive pulmonary disease) Diverticulosis Erosive gastritis Failure to thrive in adult GERD (gastroesophageal reflux disease) Hypertension Hypothyroidism Nausea & vomiting JULIAN (obstructive sleep apnea) Pancreatitis Peripheral neuropathy Pneumonia Pulmonary emphysema Pure hypercholesterolemia Seizures TIA (transient ischemic attack) Tracheostomy dependence Surgical History Surgical History H/O neck surgery C6-7 fusion Hx of cholecystectomy Hx of tonsillectomy Secondary to sepsis/ARDS Total knee replacement status Family History Family History Sibling Patient's sister is in good health Patient's brother is in good health Depression Mother Family history of malignant neoplasm of breast in first degree relative, Onset Age: 26 Patient's mother is Father Patient's father is in good health Other Family history of alcoholism Family history of lung disease Family history of malignant neoplasm of male breast Family history of migraine headaches Family history of obesity Hypertension Social History Social History (Updated 11/29/22 @ 22:58 by Jemima Fuller NP) Social History: The patient continues to smoke 1/2 a pack of cigarettes per day. She lives home alone. She had 1 daughter who is now and she has two other children that her still living. She is currently seperated from her . She is disabled. Code status full code Smoking packs per day: 0.5 Smoking cigarettes per day: 10.0 Years smoked: 40 Smoking pack-years: 20.00 Smoking status: Current every day smoker Tobacco type: cigarettes Second hand tobacco smoke exposure: No Smoking end date: 08/02/15 Alcohol intake: never Substance use: former Substance use type: methamphetamine Lack of Transportation: YES Lack of Food: Sometimes True Current Housing: I Have Housing Concerned About Future Housing: No Difficulty Paying Gas/Electric Bills: No Difficulty Paying for Meds: No Currently Unemployed: No Education: High School Diploma/GED Difficulty w/ Childcare or Family Care: No Gender identity (if verbalized by the patient): Female Spiritual care concerns: No Exam Narrative: GENERAL: Symone
--- NOTE | 2022-12-09 15:10 | PC.NURSE ---
Patient ambulated in hallway along nurses station. Patient denies any sob or weakness. Patient ambulated without assist and without difficulty. Dr Rowell notified
== END 2022-12-09 15:26 | disposition home or self-care (01) ==
PROVIDERS: Emergency Medicine; Emergency Provider Emergency Medicine; PCP Internal Medicine
DX: R53.1 Weakness (principal); J44.9 Chronic obstructive pulmonary disease, unspecified; I10 Essential (primary) hypertension; E03.9 Hypothyroidism, unspecified; G47.33 Obstructive sleep apnea (adult) (pediatric); G62.9 Polyneuropathy, unspecified; F41.9 Anxiety disorder, unspecified; F32.A Depression, unspecified; Z87.01 Personal history of pneumonia (recurrent); Z86.711 Personal history of pulmonary embolism; Z86.73 Personal history of transient ischemic attack (TIA), and cerebral infarction without residual deficits; Z86.010 Personal history of colon polyps; Z98.1 Arthrodesis status; Z90.49 Acquired absence of other specified parts of digestive tract; Z96.659 Presence of unspecified artificial knee joint; F17.210 Nicotine dependence, cigarettes, uncomplicated; R94.31 Abnormal electrocardiogram [ECG] [EKG]; R91.8 Other nonspecific abnormal finding of lung field
CPT/HCPCS: 36415; 71101; 80053; 83605; 85025; 93005; 96360; 99284; J7030

== ENCOUNTER 2023-01-06 14:30 | Outpatient (CLI) | payer OTHER, SELFPAY ==
--- NOTE | ~2023-01-06 | CT_ITS ---
EXAMINATION: CT chest high resolution wo [place] DATE: 01/06/2023 14:23 INDICATION: Pneumonia TECHNIQUE: Computed tomography (CT) of the chest was performed without intravenous contrast. The dose -length product (DLP) was 309.51 mGy-cm. Automated exposure control and iterative reconstruction tech [employer] were employed. COMPARISON: 11/30/2022 FINDINGS: There are persistent but improved patchy groundglass opacities throughout the lungs. There is also improving atelectasis of the right lower lobe. No pleural effusion or pneumothorax. There is elevation of the right hemidiaphragm. No pathologically enlarged thoracic lymph nodes are identified. The heart size is normal. Calcified coronary artery atherosclerosis is noted. There is a moderate-si zed sliding hiatal hernia. The gallbladder is surgically absent. There is moderate thoracolumbar spon dylosis. IMPRESSION: 1. Continued interval improvement of multifocal pneumonia which is now nearly completely resolved. Reviewed, dictated and finalized at location F. IMPRESSION: 1. Continued interval improvement of multifocal pneumonia which is now nearly c ompletely resolved.
[2023-01-06 15:24] LABS: Basophils Percent Auto 0.5 % (0.2-1.2); Eosinophils Absolute Auto 0.2 K/mm3 (0-0.3); Eosinophils Percent Auto 2.6 % (0-4.4); Hematocrit 42.7 % (37.0-47.0); Hemoglobin 13.6 g/dL (12.0-15.0); Immature Granulocyte Absolute 0.05 K/mm3 (0.00-0.031); Immature Granulocyte Percent A 0.6 % (0-0.5); Lymphocytes Percent Auto 16.9 % (18.3-44.2); Mean Corpuscular HGB Conc 31.9 g/dl (32-36); Mean Corpuscular Hemoglobin 29.3 pg (26-34); Mean Platelet Volume 9.9 fl (7.4-10.4); Monocytes Absolute Auto 0.7 K/mm3 (0.1-0.6); Monocytes Percent Auto 8.6 % (2.6-8.5); Neutrophils Absolute Auto 5.5 K/mm3 (1.3-6.7); Neutrophils Percent Auto 70.8 % (45.5-73.1); Platelet Count Result 310 k/mm3 (150-375); Red Blood Count 4.64 M/mm3 (4.2-5.4); Red Cell Distribution Width 14.4 % (11.5-14.5); White Blood Count 7.7 K/mm3 (4.5-10.0)
[2023-01-06 15:35] LABS: Alanine Aminotransferase 25 U/L (6-35); Albumin Level 4.4 g/dL (3.5-5.1); Alkaline Phosphatase 190 U/L (38-126); Anion Gap 6 mmol/L (8-16); Aspartate Amino Transferase 28 U/L (14-36); Bilirubin,Total 0.5 mg/dL (0.2-1.3); Blood Urea Nitrogen 20 mg/dL (7-17); Calcium 8.7 mg/dL (8.4-10.2); Carbon Dioxide 28 mmol/L (22-30); Chloride 102 mmol/L (98-107); Estimated Glomerular Filt Rate 56; Glucose 89 mg/dL (65-110); Potassium 4.1 mmol/L (3.4-5.0); Sodium 136 mmol/L (137-145)
[2023-01-06 16:02] LABS: Free T4 Free Thyroxine 1.89 ng/mL (0.78-2.19)
[2023-01-06 16:05] LABS: Thyroid Stimulating Hormone 0.212 uIU/mL (0.465-4.680)
== END 2023-01-06 14:31 | disposition home or self-care (01) ==
PROVIDERS: PCP Internal Medicine; Visit Provider Internal Medicine
DX: J42 Unspecified chronic bronchitis (principal); R07.9 Chest pain, unspecified; F41.8 Other specified anxiety disorders; I10 Essential (primary) hypertension; E03.9 Hypothyroidism, unspecified; E78.00 Pure hypercholesterolemia, unspecified; R53.83 Other fatigue; E53.8 Deficiency of other specified B group vitamins
CPT/HCPCS: 36415; 71250; 80053; 82607; 84439; 84443; 85025

== ENCOUNTER 2023-01-25 15:01 | Outpatient (CLI) | payer OTHER, SELFPAY ==
--- NOTE | ~2023-01-25 | MM_ITS ---
EXAMINATION: MM screening natalie BI w cedrick HISTORY: Screening mammogram TECHNIQUE: Craniocaudal and mediolateral oblique 3-D tomosynthesis images were obtained and synthetic 2-D images were generated. CAD analysis was submitted and interpreted. COMPARISON: September 25, 2014 bilateral screening mammogram BREAST PARENCHYMAL COMPOSITION: The breasts are almost entirely fatty. FINDINGS: There is no evidence of suspicious mass, calcification, or architectural distortion to sugg est malignancy in either breast. There has been no suspicious interval change. IMPRESSION: 1. No mammographic evidence of malignancy. 2. Recommend routine screening mammography in one year. BI-RADS Category 1: Negative Reviewed, dictated and finalized at location A.
== END 2023-01-25 15:02 | disposition home or self-care (01) ==
LOC: ANHIMG 15:03
PROVIDERS: PCP Family Medicine; Visit Provider Family Medicine
DX: Z12.31 Encounter for screening mammogram for malignant neoplasm of breast (principal)
CPT/HCPCS: 77063; 77067

== ENCOUNTER 2023-03-10 01:13 | Day surgery (SDC) | payer OTHER, SELFPAY ==
[2023-02-26 14:51] VITALS: BMI 31.4
[2023-03-10 08:04] VITALS: BP 152/102; PULSE 93; RESP 18; TEMP 36.1; O2SAT 97; BMI 32.2
[2023-03-10] MEDS: LACTATED RINGERS 1,000 ML 150 ML IV CONT (08:18)
--- NOTE | 2023-03-10 08:53 | WPDANESEPPF ---
Anes - Initial Pre Proc Eval Procedure: Operation Date: 03/10/23 09:30 Proposed Procedures p Esophagogastroduodenoscopy - Stephen Fatima MD Date/Time: 03/10/23 08:53 Surgeon: Stephen Fatima MD Pre Op Diagnosis: gastritis, GERD Patient Data Age: 62 Gender: F Height: 1.7 m Weight: 93.3 kg Last Vital Signs Temp 97.0 F L 03/10/23 08:04 Pulse 93 03/10/23 08:04 Resp 18 03/10/23 08:04 BP 152/102 H 03/10/23 08:04 Pulse Ox 97 03/10/23 08:04 O2 Del Method Room Air 03/10/23 08:04 Allergies Allergy/AdvReac Type Severity Reaction Status Date / Time sulfamethoxazole Allergy Mild JOINT Verified 03/10/23 08:03 SWELLING clarithromycin Allergy Unknown Swelling Verified 03/10/23 08:03 gabapentin Allergy Unknown Joint pain Verified 03/10/23 08:03 Influenza Virus Vaccines Allergy Unknown Unknown Verified 03/10/23 08:03 trimethoprim Allergy Unknown JOINT Verified 03/10/23 08:03 SWELLING codeine AdvReac Unknown NAUSEA - Verified 03/10/23 08:03 CAN TAKE LORTAB Home Medications Medication Instructions Recorded Confirmed Type amlodipine 5 mg tablet 5 mg PO DAILY #30 tabs 09/15/22 03/10/23 Rx aripiprazole 5 mg tablet (Abilify) 10 mg PO QHS 09/30/22 03/10/23 History sertraline 100 mg tablet 100 mg PO DAILY 11/29/22 03/10/23 History pantoprazole 40 mg tablet,delayed 40 mg PO Q12HR 30 days #60 tabs 12/05/22 03/10/23 Rx release cyclobenzaprine 10 mg tablet 10 mg PO HS PRN muscle spasm #20 12/30/22 03/10/23 Rx tabs levothyroxine 125 mcg tablet 125 mcg PO DAILY #90 tabs 01/18/23 03/10/23 Rx albuterol sulfate 90 mcg/actuation 2 inh inhalation Q4-6H PRN 02/26/23 03/10/23 History aerosol inhaler (ProAir HFA) Shortness Of Breath aripiprazole 10 mg tablet 10 mg PO HS 02/26/23 03/10/23 History sucralfate 100 mg/mL oral 10 ml PO HS 02/26/23 03/10/23 History suspension Patient hx anesthesia problems: none Family hx anesthesia problems: none Results Review: All pre-operative results and documents have been reviewed as part of the pre-operative evaluation. [facility] Past Medical History Medical History Adenomatous colon polyp Anxiety and depression Chemical dependency Chronic back pain COPD (chronic obstructive pulmonary disease) Diverticulosis Erosive gastritis Failure to thrive in adult GERD (gastroesophageal reflux disease) Hypertension Hypothyroidism Nausea & vomiting JULIAN (obstructive sleep apnea) Pancreatitis Peripheral neuropathy Pneumonia Pulmonary emphysema Pure hypercholesterolemia Seizures TIA (transient ischemic attack) Tracheostomy dependence Surgical History Surgical History H/O neck surgery C6-7 fusion Hx of cholecystectomy Hx of tonsillectomy Secondary to sepsis/ARDS Total knee replacement status Family History Family History Sibling Patient's sister is in good health Patient's brother is in good health Depression Mother Family history of malignant neoplasm of breast in first degree relative, Onset Age: 26 Patient's mother is Father Patient's father is in good health Other Family history of alcoholism Family history of lung disease Family history of malignant neoplasm of male breast Family history of migraine headaches Family history of obesity Hypertension Social History Social History Social History: The patient continues to smoke 1/2 a pack of cigarettes per day. She lives home alone. She had 1 daughter who is now and she has two other children that her still living. She is currently seperated from her . She is disabled. Code status full code Smoking packs per day: 0.5 Smoking cigarettes per day: 10.0 Years smoked: 45 Smokin
--- NOTE | 2023-03-10 08:57 | PM.HPGS ---
History of Present Illness History of Present Illness Consent: Risks, benefits, and alternatives have been discussed and questions answered. Patient agrees to proceed with procedure. Chief complaint: gastritis, GERD Narrative: Sunita Daniels is a 62 year old female with ulcerative gastritis 11/2022, now on ppi and carafate, better but still dyspepsia. No h pylori. Review of Systems Constitutional: Constitutional: Denies headache(s) and Denies weakness Eyes: Eyes: Denies blurry vision ENT: Reports Normal hearing present, Denies headache(s) and Denies neck pain Cardiovascular: Cardiovascular: Denies chest pain and Denies dyspnea Respiratory: Respiratory: Denies dyspnea Gastrointestinal: Gastrointestinal: Reports no additional gastrointestinal complaints Genitourinary: Genitourinary: Denies dysuria Musculoskeletal: Musculoskeletal: Denies neck pain Integumentary/Breasts: Skin/Breast: Denies dry skin Neurologic: Reports Normal hearing present, Denies headache(s) and Denies weakness Psychiatric: Psychiatric: Denies anxiety Endocrine: Endocrine: Denies change in body appearance Hematologic/Lymphatic: Hematologic/Lymphatic: Denies easy bleeding Allergic/Immunologic: Allergic/Immunologic: Denies urticaria PMFSH Past Medical History Medical History Adenomatous colon polyp Anxiety and depression Chemical dependency Chronic back pain COPD (chronic obstructive pulmonary disease) Diverticulosis Erosive gastritis Failure to thrive in adult GERD (gastroesophageal reflux disease) Hypertension Hypothyroidism Nausea & vomiting JULIAN (obstructive sleep apnea) Pancreatitis Peripheral neuropathy Pneumonia Pulmonary emphysema Pure hypercholesterolemia Seizures TIA (transient ischemic attack) Tracheostomy dependence Surgical History Surgical History H/O neck surgery C6-7 fusion Hx of cholecystectomy Hx of tonsillectomy Secondary to sepsis/ARDS Total knee replacement status Family History Family History Sibling Patient's sister is in good health Patient's brother is in good health Depression Mother Family history of malignant neoplasm of breast in first degree relative, Onset Age: 26 Patient's mother is Father Patient's father is in good health Other Family history of alcoholism Family history of lung disease Family history of malignant neoplasm of male breast Family history of migraine headaches Family history of obesity Hypertension Social History Social History Social History: The patient continues to smoke 1/2 a pack of cigarettes per day. She lives home alone. She had 1 daughter who is now and she has two other children that her still living. She is currently seperated from her . She is disabled. Code status full code Smoking packs per day: 0.5 Smoking cigarettes per day: 10.0 Years smoked: 45 Smoking pack-years: 22.50 Smoking status: Current every day smoker Tobacco type: cigarettes Second hand tobacco smoke exposure: No Smoking end date: 08/02/15 Alcohol intake: former Alcohol use details: recovering alcoholic 2000 Substance use: former Substance use type: marijuana and methamphetamine Lack of Transportation: YES Lack of Food: Sometimes True Current Housing: I Have Housing Concerned About Future Housing: No Difficulty Paying Gas/Electric Bills: No Difficulty Paying for Meds: No Currently Unemployed: No Education: High School Diploma/GED Difficulty w/ Childcare or Family Care: No Living arrangements: alone Gender identity (if verbalized by the patient): Female Spiritual care concerns: No Meds Home Medications and Allergies Home Medications Medication In
[2023-03-10 09:18] VITALS: BP 92/56; PULSE 87; RESP 18; O2SAT 93
[2023-03-10 09:28] VITALS: BP 104/68; PULSE 81; RESP 19; O2SAT 94
[2023-03-10 09:36] VITALS: BP 110/78; PULSE 86; RESP 24; O2SAT 92
== END 2023-03-10 09:49 | disposition home or self-care (01) ==
PROVIDERS: PCP Family Medicine; Visit Provider Internal Medicine Gastroenterology
PROC: 0DJ08ZZ Inspection of Upper Intestinal Tract, Via Natural or Artificial Opening Endoscopic (ICD-10-PCS; CPT 43235; principal; 2023-03-10 09:30)
DX: K29.60 Other gastritis without bleeding (principal); K21.9 Gastro-esophageal reflux disease without esophagitis; K44.9 Diaphragmatic hernia without obstruction or gangrene; I10 Essential (primary) hypertension; J43.9 Emphysema, unspecified; E03.9 Hypothyroidism, unspecified; G47.33 Obstructive sleep apnea (adult) (pediatric); G62.9 Polyneuropathy, unspecified; E78.00 Pure hypercholesterolemia, unspecified; G40.909 Epilepsy, unspecified, not intractable, without status epilepticus; Z86.73 Personal history of transient ischemic attack (TIA), and cerebral infarction without residual deficits; F41.8 Other specified anxiety disorders; Z98.1 Arthrodesis status; F17.210 Nicotine dependence, cigarettes, uncomplicated; F10.21 Alcohol dependence, in remission; E66.9 Obesity, unspecified; Z68.32 Body mass index [BMI] 32.0-32.9, adult; Z79.51 Long term (current) use of inhaled steroids
CPT/HCPCS: 43239; 88305; 88342; J2704; J7120

== ENCOUNTER 2024-12-05 17:29 | Emergency (ER) | payer OTHER, SELFPAY ==
--- OUTSIDE RECORDS SUMMARY | 2024-12-05 17:32 | XMS_ITS | Continuity of Care Document ---
Author Organization [facility] Address [address] [place] [address] [address] [place] [address] Phone Care Team Providers Care Hop Weigher Name Role Phone Anitha Zaldivar Unavailable Unavailable Advance Directives Directive Yes / No Effective Date File Name No Information Encounters Encounter Description Practice Location Reason(s) For Visit Diagnoses Date Provider Providers Copied on Encounter [facility], [id number] [place] [address] [address], [place], [place], [id number], [place] tel:[phone] [facility] No Information Sep-0 5200 [address] Kayley Welsh. [address] , [address], [place], [address], [place]. tel:[phone] Family History Family Member Type Diagnosis Age [...]
--- OUTSIDE RECORDS SUMMARY | 2024-12-05 17:32 | XMS_ITS ---
Author Organization [facility] Address [address] [place] [address] Care Team Providers Care Hospitality Manager Name Role Phone Vicky Thurman Primary Care Provider REASON FOR VISIT follow up Social History Sex Assigned At : Social History Observation Description Sex Assigned At Female Encounters Encounter Location Date Provider Diagnosis Formerly [facility], [facility] [address] [address] 11/01/2024 Vicky Thurman Plan Of Treatment Next Appt Details Provider Name:Vicky brown, 12/06/2024 09:40:00 AM, [address] [place], [address], Progress Notes * David DANIELSOB:1960 (64 yo F)Acc No.[id number]:11/01/2024 UNLOCKED PROGRESS NOTE Patient: Sunita BARRAGAN Provider: JELANI Nagel :1960 A ge:64 Y S ex:Female Date:11/01/2024 Address:[address], [address] , [facility] Subjective: * Chief Complaints: * 1 . Follow up. * Medical History: Objective: * Vitals: Assessment: Plan: * Treatment: * * Electronic signature of Víctor Thurman on 12/05/2024 at 05:32 PM CDT Sign off status: Pending * Provider: JELANI Nagel Date: 0 11/01/2024 Generated for Elder dejesus/Clarissa/eTransmitting on: 0 12/05/2024 05:32 PM CDT
--- OUTSIDE RECORDS SUMMARY | 2024-12-05 17:33 | XMS_ITS | Clinical Summary ---
Author Organization [facility] Address [address] [place] [address] Care Team Providers Care Media Analyst Name Role Phone Lianne Stack MD Primary Care Provider [phone] Allergies Active Allergy Reactions Criticality Noted Date Comments Clarithromycin Joint pain,Nausea And Vomiting,Other (See comments),Swelling Medium 06/13/2012 Reaction: Joint pain, JOINTS SWELL Joint swelling Codeine Stomach upset Medium 02/10/2018 Near fatal reaction leading to coma per sister Gabapentin Other (See comments),Joint pain,Swelling Medium 03/23/2017 Joint Swelling Sulfamethoxazole Joint pain,Other (See comments),Swelling Medium 11/18/2019 Sulfamethoxazole-Trimethop rim Unknown 09/03/2022 Trimethoprim Joint pain,Other (See comments),Swelling Medium 11/18/2019 Medications fluticasone propionate (FLONASE) 50 mcg/actuation nasal spray Administer 1 spray into each nostril daily Active cyclobenzaprine (FLEXERIL) 10 mg tablet Take 1 tablet (10 mg total) by mouth 2 (two) times a day as needed for muscle spasms Active DULoxetine DR (CYMBALTA) 60 mg capsule Take 1 capsule (60 mg total) by mouth daily Active DULoxetine DR (CYMBALTA) 30 mg capsule Take 1 capsule (30 mg total) by mouth daily Active sertraline (ZOLOFT) 100 mg tablet Take 1 tablet (100 mg total) by mouth daily Active ARIPiprazole (ABILIFY) 10 mg tablet Take 1 tablet (10 mg total) by mouth daily Active ARIPiprazole (ABILIFY) 2 mg tablet Take 1 tablet (2 mg total) by mouth daily Active amLODIPine (NORVASC) 2.5 mg tablet Take 1 tablet (2.5 mg total) by mouth daily Active pantoprazole DR (PROTONIX) 40 mg EC tablet Take 1 tablet (40 mg total) by mouth 2 (two) times a day Active ALPRAZolam (XANAX) 0.25 mg tablet Take 1 tablet (0.25 mg total) by mouth 3 (three) times a day as needed for anxiety Active umeclidinium-vi lanteroL (ANORO ELLIPTA) 62.5-25 mcg/actuation blister with device Inhale 1 puff daily Active prazosin (MINIPRESS) 2 mg capsule Take 1 capsule (2 mg total) by mouth nightly Active levothyroxine (SYNTHROID) 137 mcg tablet Take 1 tablet (137 mcg total) by mouth early childhood specialist before breakfast 30 tablet 4 Active albuterol (PROAIR RESPICLICK) 90 mcg/actuation inhaler Inhale 2 puffs every 6 (six) hours as needed for wheezing 1 each 2 4 04/05/20 25 Active magnesium hydroxide (MILK OF MAGNESIA) suspension 400 mg/5 mL Take 30 mL (2,400 mg total) by mouth daily for 5 days 150 mL 4 Active Active Problems Problem Noted Date Diagnosed Date COPD exacerbation 04/05/2024 Toxic encephalopathy 04/03/2024 TIA (transient ischemic attack) 03/29/2024 Seizure 03/29/2024 Overview (03/29/2024): seizure like actvity Acute on chronic hypoxic respiratory failure Acute on chronic respiratory failure with hypoxi a 12/17/2023 Supplemental oxygen dependent 12/17/2023 Primary fibromyalgia syndrome 10/27/2023 Overview (03/29/2024): Last Assessment & Plan: Examination identifies multiple fibromyalgia tender points and fibromyalgia as a non-inflammatory pain condition might better explain her symptoms rather than polymyalgia rheumatica especially with rather unremarkable 09/2023 lab testing (normal sedimentation rate and only slightly elevated CRP result). Would suggest to discuss with psychiatrist if possibly duloxetine dose can be titrated (would likely need to weaned off sertraline) that might be helpful for both depression as well as fibromyalgia pain (FDA approved). Polymyalgia rheumatica 10/13/2023 Overview (03/29/2024): Sudden onset symptoms late 08/2023 (see ED report but no lab) w/ some improvement on prednisone 50 mg daily x 5 days. PCP started prednisone 15mg QD for PMR? Last Assessment & Plan: Sudden onset symptoms late 08/2023 (see ED report but no lab) w/ some improvement on prednisone 50 mg daily x 5 days. PCP started prednisone 15mg QD for PMR? Initially PCP started prednisone 15 mg daily for suspected polymyalgia rheumatica however normal sed rate and only minimal CRP elevation (can be weight related). +/- feeling better with change from prednisone to methylprednisolone 16 mg/d however still with areas of body pain (shoulder/thighs) and multiple fibromyalgia tender points noted. Without clear confirmation of a diagnosis of polymyalgia rheumatica I would not favor to continue use of steroid medication to avoid risk of side effects and will provide directions to taper off over the next 10 days. Disorder of intervertebral d isc at C5-C6 level with radiculopathy 09/03/2022 Facet arthropathy, cervical 09/03/2022 Arthralgia of left ankle 12/19/2021 Arthralgia of right knee 12/19/2021 Pain in right foot 12/19/2021 History of total knee arthroplasty 07/08/2021 Mechanical complication of implant 07/08/2021 Multiple joint pain 07/08/2021 Methicillin resistant Staphylococcus aureus infe ction 02/06/2021 Eczema 10/10/2020 History of MRSA infection 10/10/2020 Overview (09/03/2022): Last Assessment & Plan: - Cont Hibaclens daily Other psoriasis 02/15/2020 Overview (09/03/2022): Last Assessment & Plan: - BSA < 5% - Encouraged to start Elidel 1% cream BID to affected areas of the face - Restart BMZ dip 0.05% cream BID to affected areas of the trunk and extremities. Wet wraps to hands - Bacterial culture collected from the fissures of fingertips (R third finger, L thumb), nasal dorsum erosions, and from the groin/perianal skin (inverse PSO r/o strep intertrigo). Also checking HSV PCR from nasal dorsum. 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 Mild neurocognitive disorder 09/27/2019 Primary hypertension 09/27/2019 Gait difficulty 09/05/2019 Small fiber neuropathy 09/05/2019 Weakness 08/29/2019 Dizziness 08/29/2019 Methamphetamine abuse 08/29/2019 Neuropathy 08/29/2019 SOB (shortness of breath) 08/29/2019 Near syncope 08/29/2019 Irritant contact dermatitis due to other chemica l products 06/27/2019 Bilateral low back pain without sciatica 019 ILD (interstitial lung disease) 02/21/2019 Tobacco use disorder, continuous 02/21/2019 Reduced libido 07/04/2018 Overview (03/29/2024): Decreased libido;Recorded Elsewhere: No Location: [facility] Source: EHR Chronic: N Practice ID: [id number] Billable Time: 03:15:00 PM Intractable migraine without aura and without status migrainosus 06/20/2018 COPD (chronic obstructive pulmonary disease) (CM S/HCC) 02/10/2018 Overview (09/03/2022): COPD Allergic rhinitis 02/10/2018 Chronic constipation 02/10/2018 Chronic daily headache 02/10/2018 Depression 02/10/2018 History of Helicobacter pylori infection 018 History of pancreatitis 02/10/2018 JULIAN (obstructive sleep apnea) 02/10/2018 Overview (09/03/2022): Overview: ([facility] - repeated - at time patient on 20/16 cm water with 4 l oxygen; AHI=9.4 (20 hypopneae) respiratory events/h; Dioni SaO2=74%; no report of % of recording below SaO2 of 88%; latency to sleep=5min; Efficiency=90%; Stage R=0%;85.0 kg; [facility] 06 October 2011; ) Vertebrobasilar artery syndrome 02/10/2018 B12 deficiency 01/01/2017 Acquired hypothyroidism 07/31/2016 History of alcohol use 07/31/2016 Overview (09/03/2022): Overview: In questionnaire reported 12 pack/day until 1996. Menopause present 07/31/2016 Overview (09/03/2022): Overview: surgical RLS (restless legs syndrome) 07/31/2016 Overview (09/03/2022): Overview: Diagnosed on CPAP - split night. Secondary hypertension 07/31/2016 MRSA colonization 05/03/2016 Orthostatic hypotension 05/01/2016 GERD (gastroesophageal reflux disease) 1 Tobacco use disorder Disorder of thyroid Overview (09/20/2020): Thyroid disease Hypotension Protein-calorie malnutrition Nonintractable migraine Lacunar infarction Substance use Immunizations Immunization Administration Dates Next Due Tdap 06/05/2016 Surgical History Surgery Date Site/Laterality Comments KNEE ARTHROPLASTY 2008 Knee replacement CHOLECYSTECTOMY 1985 Cholecystectomy OTHER SURGICAL HISTORY restless leg syn. ELBOW SURGERY 2007 right elbow surgery OTHER SURGICAL HISTORY arthroscopy on both knees NECK SURGERY 2006 neck surgery Medical History Medical History Date Comments Chronic obstructive pulmonary disease (HCC) COPD Disorder of thyroid Thyroid dise ase Hypertension Hypertension Pancreatitis Pancreatitis Family History Medical History Relation Name Comments Diabetes Father Diabetes mellit us; Hypertension Father Hypertension; Breast cancer Mother Cancer -breast ; Cause of : Cancer -breast Hypertension Sister Hypertension; Relation Name Status Comments Father Mother (Age 26) Sister Social History Tobacco Use Types Packs/Day Years Used Date Smoking Tobacco: Every Day Cigarettes Smokeless Tobacco: Never Alcohol Use Standard Drinks/Week Comments No 0 (1 standard drink = 0.6 oz pur e alcohol) [facility] Utilities Answer Date Recorded In the past 12 months has th e electric, gas, oil, or water company threatened to shut off services in your home? No 03/29/2024 Social Connection and Isolat ion Panel [NHANES] Answer Date Recorded In a typical week, how many times do you talk on the phone with family, friends, or neighbors? Never 03/29/2024 How often do you get togethe r with friends or relatives? More than three times a week 03/29/2024 How often do you attend chur ch or yarsanism services? Never 03/29/2024 Do you belong to any clubs o r organizations such as sabianist groups, unions, fraternal or athletic groups, or school groups? No 03/29/2024 How often do you attend meet ings of the clubs or organizations you belong to? Never 03/29/2024 Are you , , di vorced, , never , or living with a partner? 03/29/2024 Overall Financial Resource Strain (CARDIA) Answe r Date Recorded How hard is it for you to pa y for the very basics like food, housing, medical care, and heating? Not very hard 03/29/2024 Hunger Vital Sign Answer Date Recorded Within the past 12 months, y ou worried that your food would run out before you got the money to buy more. Never true 03/29/20 24 Within the past 12 months, t he food you bought just didn't last and you didn't have money to get more. Never true 03/29/2024 PRAPARE - Transportation Answer Date Re corded In the past 12 months, has l ack of transportation kept you from medical appointments or from getting medications? No 03/03 In the past 12 months, has l ack of transportation kept you from meetings, work, or from getting things needed for daily living? No 03/29/2024 Housing Stability Vital Sign Answer Nehemias e Recorded In the last 12 months, was t here a time when you were not able to pay the mortgage or rent on time? No 03/29/2024 In the past 12 months, how m any times have you moved where you were living? 0 03/29/2024 At any time in the past 12 m [facility], were you homeless or living in a senior care (including now)? No 03/29/2024 Personal Safety Answer Date Recorded Have you ever been in or are you currently in a harmful physical or emotional relationship or is someone making you feel afraid or unsafe? Denies 03/29/2024 Comments No Sex and Gender Information Value Date Recorded Sex Assigned at Not on file Legal Sex Female 12:37 PM OPERATIONAL RISK CONSULTANT Gender Identity Not on file Sexual Orientation Not on file Occupation Industry Job Start Date Job End Date disabled Not on file Not on file Not on file Obstetrics History Last Filed Vital Signs Vital Sign Reading Time Taken Comments Blood Pressure 108/78 04/05/2024 11:23 AM CDT Pulse 94 04/05/2024 11:23 AM CDT Temperature 36.4 C (97.6 F) 04/05/2024 11:23 AM CDT Respiratory Rate 22 04/05/2024 11:23 AM CDT Oxygen Saturation 94% 04/05/2024 11:23 AM CDT Inhaled Oxygen Concentration - - Weight 106 kg (233 lb 11 oz) 04/05/2024 5:50 AM CDT Height 167.6 cm (5' 6 ) 04/02/2024 5:34 PM CDT Body Mass Index 37.72 04/02/2024 5:34 PM CDT Plan of Treatment Health Maintenance Due Date Last Done Comments Depression Screening 1960 Hepatitis C Screening 1960 Hepatitis B Screening 1979 Regular Well Visit/Exam 18-64 1979 Pneumococcal vaccine <65 (1 of 2 - PCV) 1980 Zoster Vaccine (1 of 2) 2011 Colon Cancer Screening-Colonoscopy 06/19/20202009 Breast Cancer Screening-Mammogram 03/18/2021 020 Covid-19 Vaccine (2 - season) 04/02/202403/2021 Influenza Vaccine (Season Ended) 2025 DTaP/Tdap/Td Vaccine (2 - Td or Tdap) 06/05/202611/2015 Colon Cancer Screening-CT Colonography Discontinued Colon Cancer Screening-DNA Stool Discontinued 06/19/20 10 Colon Cancer Screening-FIT Discontinued 06/19/2010 Colon Cancer Screening-Sigmoidoscopy Discontinued 06/02 Procedures Procedure Name Priority Date/Time Associated Diagnosis Comments COLONOSCOPY 06/19/2010 12:00 AM OPERATIONAL RISK CONSULTANT from Last 3 Months or Most Recently Relevant to Health Maintenance Results * COLONOSCOPY (06/19/2010 12:00 AM OPERATIONAL RISK CONSULTANT) Anatomical Region Laterality Modality Other Narrative 06/19/2010 12:00 AM OPERATIONAL RISK CONSULTANT Ordered by an unspecified provider. Procedure Note ProviderFloyd MD - 06/19/2010 12:00 AM CST PROCEDURE REPORT Patient: MARKEL DANIELS Account: [id number] Room No: : 1960 Patient Type: [facility] Attend.: Reece Ashton M.D. Admit Date: 06/19/2010 Dict.: Reece Ashton M.D. Disch. Date: PROCEDURE PERFORMED: Colonoscopy. HISTORY: 49-year-old female with a prior history of colonic polypspresently having alternating constipation and diarrhea. PHYSICAL EXAMINATION: Obese female. Lungs are clear. Cardiovascular examination was unremarkable. PROCEDURE: Colonoscopy was performed with the [email or web address] video endoscope.The patient was premedicated by anesthesia. On digital exam she has gradeII hemorrhoids. We inserted the endoscope and advanced it to the cecum.The colon was well prepped and visualized. We carefully searched thecolonic mucosa and could find no evidence of inflammation or neoplasia anywhere through the length of the bowel. The patient tolerated the procedurewithout difficulty. POSTOPERATIVE DIAGNOSIS: Hemorrhoidal disease, otherwise normal. PLAN: Surveillance 5 years in light of past history. Reece Ashton M.D. DR/valeria TD: 06/20/2010 11:07 CC: Dr. [employer] [place], [place] PROCEDURE REPORT Authenticated by Reece Ashton MD On 06/23/2010 07:33:00 AM Historical Provider ENDOSCOPY PROCEDURES Shelby l Result from Last 3 Months or Most Recently Relevant to Health Maintenance Insurance [address] [place] [address] [facility] [address] [place] [address] [address] Advance Directives For more information, please contact: [phone] * Full Code (Latest Code Status on File) Date Activated Date Inactivated Comments 03/29/2024 4:20 AM 04/05/2024 6:34 PM * Full Code Date Activated Date Inactivated Comments 09/20/2020 3:43 AM 09/22/2020 5:29 PM Care Teams Media Analyst Relationship Specialty Start Date End Date Lianne Stack MD [address] [place] [address] PCP - General Obstetrics and Gynecology 11/25/23
--- OUTSIDE RECORDS SUMMARY | 2024-12-05 17:33 | XMS_ITS | Encounter Summary ---
Author Organization [facility] Address [address] [place] [address] Phone Care Team Providers Care Sales Teacher Name Role Phone Lianne Stack MD Primary Care Provider Ryan Figueroa MD Unavailable Gene Russell MD Unavailable [phone] Reason for Visit * Reason Comments Medication Refill Encounter Details Date Type Department Care Team (Late st Contact Info) Description 12/25/2023 Refill [facility] - Pulmonology & [facility] [address] [place] [address] Ryan Figueroa MD [address] [place] [address] Medication Refill Social History Tobacco Use Types Packs/Day Years Used Date Smoking Tobacco: Every Day Cigarettes 1 25.3 Started: 1999 Alcohol Use Standard Drinks/Week Comments No 0 (1 standard drink = 0.6 oz pur e alcohol) [facility] Utilities Answer Date Recorded In the past 12 months has e [employer], gas, oil, or water company threatened to shut off services in your home? Patient declined 12/15/2023 Social Connection and Isolation Panel [NHANES] A nswer Date Recorded In a typical week, how many times do you talk on the phone with family, friends, or neighbors? Patient declined 12/15/2023 How often do you get togethe r with friends or relatives? Patient declined 12/15/2023 How often do you attend cheondoism or orthodox serv ices? Patient declined 12/15/2023 Do you belong to any clubs o r organizations such as cheondoism groups, unions, fraternal or athletic groups, or school groups? Patient declined 12/15/2023 How often do you attend meet ings of the clubs or organizations you belong to? Patient declined 12/15/2023 Are you , , di vorced, , never , or living with a partner? Patient declined 12/15/2023 AUDIT-C Answer Date Recorded Q1: How often do you have a drink containing alc ohol? Patient declined 12/15/2023 Q2: How many drinks containi ng alcohol do you have on a typical day when you are drinking? Patient declined 12/15/2023 Q3: How often do you have si x or more drinks on one occasion? Patient declined 12/15/2023 Overall Financial Resource Strain (CARDIA) Answe r Date Recorded How hard is it for you to pa y for the very basics like food, housing, medical care, and heating? Patient declined 12/15/2023 [facility] - Occupational Stress Questionnaire Answer Date Recorded Do you feel stress - tense, restless, nervous, or anxious, or unable to sleep at night because your mind is troubled all the time - these days? Patient declined 12/15/2023 Exercise Vital Sign Answer Date Recorde d On average, how many days pe r week do you engage in moderate to strenuous exercise (like a brisk walk)? Patient declined On average, how many minutes do you engage in exercise at this level? Patient declined 12/15/2023 Hunger Vital Sign Answer Date Recorded Within the past 12 months, y ou worried that your food would run out before you got the money to buy more. Patient declined Within the past 12 months, t he food you bought just didn't last and you didn't have money to get more. Patient declined PRAPARE - Transportation Answer Date Re corded In the past 12 months, has l ack of transportation kept you from medical appointments or from getting medications? Patient declined 12/15/2023 In the past 12 months, has l ack of transportation kept you from meetings, work, or from getting things needed for daily living? Patient declined 12/15/2023 Housing Stability Vital Sign Answer Nehemias e Recorded In the last 12 months, was t here a time when you were not able to pay the mortgage or rent on time? Patient declined 12/15/19 24 In the last 12 months, how many places have you lived? 1 12/15/2023 In the last 12 months, was t here a time when you did not have a steady place to sleep or slept in a residential (including now)? Patient declined 12/15/2023 Sexually Active Control Partners Comments Not Currently Comments No Sex and Gender Information Value Date Recorded Sex Assigned at Not on file Legal Sex Female 9:25 PM CDT Gender Identity Not on file Sexual Orientation Not on file documented as of this encounter Miscellaneous Notes * Telephone Encounter - Terra Pimentel RN - 12/28/2023 8:20 AM CDT Medication(s) refilled and signed per [facility] Chronic Medication Refill Standing Order for Pediatricand Adult Patients. Requested Prescriptions Pending Prescriptions Disp Refills rOPINIRole (REQUIP) 1 MG Tablet [Pharmacy Med Name: ROPINIROLE 1MG TABLETS] 90 Tablet 0 Sig: TAKE 1 TABLET BY MOUTH EVERY NIGHT Antiparkinson Dopaminergics and COMT Protocol Passed - 12/25/2023 3:02 PM Passed - Visit with relevant provider in the past 9 months or upcoming 90 days Recent Visits Date Type Provider Dept 11/29/23 Office Visit Ryan Figueroa MD [facility] 08/05/23 Office Visit Ryan Figueroa MD [facility] 05/04/23 Office Visit Ryan Figueroa MD [facility] Showing recent visits within past 270 days and meeting all other requirements Future Appointments Date Type Provider Dept 01/03/24 Appointment Ryan Figueroa MD [facility] 03/06/24 Appointment Ryan Figueroa MD [facility] Showing future appointments within next 90 days and meeting all other requirements Passed - Blood pressure on record in past 12 months Clinician-entered: BP Readings from Last 3 Encounters: 12/24/23 130/90 12/22/23 160/90 12/21/23 124/62 Patient-entered: No data recorded documented in this encounter Plan of Treatment Upcoming Encounters Date Type Department Care Team (Late st Contact Info) Description 12/14/2024 11:30 AM CDT [facility] Visit [facility] - [facility] [address] [place] [address] Ryan Figueroa MD [address] [place] [address] documented as of this encounter Visit Diagnoses Diagnosis Restless legs syndrome (RLS) documented in this encounter Additional Health Concerns Infection Onset Date Last Indicated Resolved Time COVID - 19 02/25/2024 02/25/2024 02/25/2024 4:10 AM CDT 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 02/25/2024 06/06/2024 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 COVID - 19 06/03/2024 06/03/2024 06/03/2024 12:0 0 PM CDT COVID - 19 10/08/2024 10/08/2024 10/08/2024 9:00 PM CDT COVID - 19 10/23/2024 10/23/2024 10/23/2024 1:09 AM CDT documented as of this encounter Care Teams Sales Teacher Relationship Specialty Start Date End Date Lianne Stack MD [address] [place] [address] PCP - General Family Medicine 01/13/23 Ryan Figueroa MD [address] [place] [id number] Consulting Physician Pulmonary Disease 01/29/23 Gene Russell MD [address] [place] [phone] Consulting Physician Neurology 01/28/24 documented as of this encounter
--- OUTSIDE RECORDS SUMMARY | 2024-12-05 17:33 | XMS_ITS | Encounter Summary ---
Author Organization [facility] Address [address] [place] [address] Phone Care Team Providers Care Assistant Project Manager Name Role Phone Lianne Stack MD Primary Care Provider Ryan Figueroa MD Unavailable Gene Russell MD Unavailable [phone] Reason for Visit * Reason Comments Medication Refill Encounter Details Date Type Department Care Team (Late st Contact Info) Description 09/28/2023 Refill [facility] - Pulmonology & Sleep Medicine [facility] [address] [place] [address] Ryan Figueroa MD [address] [place] [address] Medication Refill Social History Tobacco Use Types Packs/Day Years Used Date Smoking Tobacco: Every Day Cigarettes 1 25.3 Started: 1999 Alcohol Use Standard Drinks/Week Comments No 0 (1 standard drink = 0.6 oz pur e alcohol) Sexually Active Control Partners Comments Not Currently Comments No Sex and Gender Information Value Date Recorded Sex Assigned at Not on file Legal Sex Female 9:25 PM CDT Gender Identity Not on file Sexual Orientation Not on file documented as of this encounter Miscellaneous Notes * Telephone Encounter - Terra Pimentel RN - 09/28/2023 12:51 PM CST Medication(s) [facility]illed and signed [facility] Chronic Medication Refill Standing Order for Pediatricand Adult Patients. Requested Prescriptions Pending Prescriptions Disp Refills rOPINIRole (REQUIP) 0.5 MG Tablet [Pharmacy Med Name: ROPINIROLE 0.5MG TABLETS] 90 Tablet 0 Sig: TAKE 1 TABLET BY MOUTH EVERY NIGHT Antiparkinson Dopaminergics and COMT Protocol Passed - 09/28/2023 12:33 PM Passed - Visit with relevant provider in the past 9 months or upcoming 90 days Recent Visits Date Type Provider Dept 08/05/23 Office Visit Ryan Figueroa MD [facility] 05/04/23 Office Visit Ryan Figueroa MD [facility] 01/29/23 Office Visit Ryan Figueroa MD [facility] Showing recent visits within past 270 days and meeting all other requirements Future Appointments No visits were found meeting these conditions. 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 Plan of Treatment Upcoming Encounters Date Type Department Care Team (Late st Contact Info) Description 12/14/2024 11:30 AM CDT Office Visit [facility] - Pulmonology & Sleep Medicine [facility] [address] [place] [address] Ryan Figueroa MD [address] [place] [address] documented as of this encounter Visit Diagnoses Not on filedocumented in this encounter Additional Health Concerns Infection Onset Date Last Indicated Resolved Time COVID - 19 02/25/2024 02/25/2024 02/25/2024 4:10 AM CDT 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 02/25/2024 06/06/2024 9:53 AM 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
--- OUTSIDE RECORDS SUMMARY | 2024-12-05 17:33 | XMS_ITS | Referral Summary ---
Author Organization [facility] Address [address] [place] [address] Care Team Providers Care Award Clerk Name Role Phone Lianne Stack MD Primary Care Provider Allergies Active Allergy Reactions Criticality Noted Date [...] tablet (137 mcg total) by mouth early interventionist before breakfast 30 tablet 4 Active albuterol [...] dorsum. Will call with culture results - [place] [facility] reviewed - Referral to Rheumatology [...] (03/29/2024): Decreased libido;Recorded Elsewhere: No Location: [facility] Source: EHR Chronic: N Practice ID: [id number] Billable Time: 03:15:00 PM Intractable migraine without aura and without status migrainosus 06/20/2018 COPD (chronic obstructive pulmonary disease) (CM S/HCC) 02/10/2018 Overview (09/03/2022): COPD Allergic rhinitis 02/10/2018 Chronic constipation 02/10/2018 Chronic daily headache 02/10/2018 Depression 02/10/2018 History of Helicobacter pylori infection 018 History of pancreatitis 02/10/2018 JULIAN (obstructive sleep apnea) 02/10/2018 Overview (09/03/2022): Overview: ([facility] - repeated - at time patient on [...] Immunization Administration Dates Next Due Tdap 06/05/2016 Social History Tobacco Use Types Packs/Day Years Used Date Smoking Tobacco: Every Day Cigarettes Smokeless Tobacco: Never Alcohol Use Standard Drinks/Week Comments No 0 (1 standard drink = 0.6 oz pur e alcohol) [facility] Utilities Answer Date Recorded In the past 12 months has [employer], gas, oil, or water [employer] threatened to shut off services in your home? No 03/29/2024 Social Connection and Isolat ion Panel [NHANES] Answer Date Recorded In a typical week, how many times do you talk on the phone with family, friends, or neighbors? Never 03/29/2024 How often do you get togethe r with friends or relatives? More than three times a week 03/29/2024 How often do you attend [facility] or caodaism services? Never 03/29/2024 Do you belong to any clubs o r organizations such as rastafari groups, unions, fraternal or athletic groups, or [...] any time in the past [address] [facility], were you homeless or living in a assisted (including now)? No 03/29/2024 Personal Safety Answer Date Recorded Have you ever been in or are you currently in a harmful physical or emotional relationship or is someone making you feel afraid or unsafe? 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 Gender Identity Not on file Sexual Orientation Not on file Occupation Industry Job Start Date Job End Date disabled Not on file Not on file Not on file Last Filed Vital Signs Vital Sign Reading [...] 04/02/2024 5:34 PM CDT Plan of Treatment Not on file Procedures Procedure Name Priority Date/Time Associated Diagnosis Comments COLONOSCOPY 06/19/2010 12:00 AM CAMPUS SAFETY OFFICER from Last 3 Months or Most Recently Relevant to Health Maintenance Results * COLONOSCOPY (06/19/2010 12:00 AM CAMPUS SAFETY OFFICER) Anatomical Region Laterality Modality Other Narrative 06/19/2010 12:00 AM CAMPUS SAFETY OFFICER Ordered by an unspecified provider. Procedure Note Provider, MD Floyd - 06/19/2010 12:00 AM CST PROCEDURE REPORT Patient: MARKEL DANIELS Account: [id number] Room No: : 1960 Patient Type: [facility] Attend.: Reece Ashton M.D. Admit Date: 06/19/2010 Dict.: Reece Ashton M.D. Disch. Date: PROCEDURE PERFORMED: Colonoscopy. HISTORY: 49-year-old female with a prior history of colonic polypspresently having alternating constipation and diarrhea. PHYSICAL EXAMINATION: Obese female. Lungs are clear. Cardiovascular examination was unremarkable. PROCEDURE: Colonoscopy was performed with the [employer] video endoscope.The patient was premedicated by anesthesia. [...] TD: 06/20/2010 11:07 CC: Dr. Glenroy Power [place], [place] PROCEDURE REPORT Authenticated by Reece Ashton MD On 06/23/2010 07:33:00 AM us Historical Provider ENDOSCOPY PROCEDURES Shebly l Result from Last 3 Months or Most Recently Relevant to Health Maintenance Insurance [address] [place], [place] [id number] [place] [address] [address] [place] [address] [facility] Advance Directives For more information, please contact: [phone] * Full Code (Latest Code Status on File) Date Activated Date Inactivated Comments 03/29/2024 4:20 AM 04/05/2024 6:34 PM * Full Code Date Activated Date Inactivated Comments 09/20/2020 3:43 AM 09/22/2020 5:29 PM Care Teams Award Clerk Relationship Specialty Start Date End Date Lianne Stack MD [address] [place] [address] PCP - General Obstetrics and Gynecology 11/25/23
--- OUTSIDE RECORDS SUMMARY | 2024-12-05 17:33 | XMS_ITS | Data Portability ---
Author Organization [facility] Address [address] [place] [address] Care Team Providers Care Stove Tender Name Role Phone LIANNE STACK Primary Care Provider DIANA [employer] MARIZA KOROMA Brick Kiln Burner Assessment No assessment recorded. Plan of Treatment Reminders Order Date Submit Date Provider Last Modified By Organization Details Last Modified Time Details Appointments None recorded. Lab drug screen, 14 drugs (detectim ed), urine - see med list; uses oxycodone 2024 025 [facility], [address] [facility], [facility], [place], [address], 5 03:40:36 BMP, serum or plasma 2023 024 [facility], [address] [facility], [facility], [place], [address], 4 03:36:48 TSH, ultra-sen sitive, serum 2023 024 [facility], [address] [facility], [address], [place], [address], 4 14:36:16 Referral pain managemen t referral - Chronic back pain; patient open to back injection s after having tried multiple pain medicatio ns 2024 025 [facility], [address], [place], [address], 5 04:13:[address] referral - blurry vision and pain with eye movement, subconjun ctival hemorrhag e of left eye 2023 [facility], [address], [place], [address], 5 08:53:55 cardiopul monary rehab referral - patient with COPD on supplemen godwin O2; gets fatigued easily 2023 024 [facility], [address] [place], [address], 5 14:21:42 Procedures None recorded. Surgeries None recorded. Imaging None recorded. Medication Orders oxycodone 5 mg tablet 2024 025 Walk[facility]in [facility] #[id number], [address], [place], [place], [id number], 5 15:30:42 oxycodone 5 mg tablet 2024 025 [id number], [address], [place], [place], [id number], 5 15:30:43 oxycodone 5 mg tablet 2024 025 [place] [facility][id number], [address], [place], [place], [id number], 5 15:30:40 cyclobenz aprine 10 mg tablet 2024 025 Walk-in Appointment Scheduler #[id number], [address], [place], [place], [id number], 5 15:13:49 oxycodone 5 mg tablet 2024 025 [facility][id number], [address], [place], [place], [id number], 5 15:13:55 ketoconaz ole 2 % topical cream 2023 [place] [facility] #[id number], [address], [place], [place], [id number], 4 16:29:33 Lidocaine Viscous 2 % mucosal solution 2023 [id number], [address], [place], [place], [id number], 5 15:04:56 cyclobenz aprine 10 mg tablet 2023 [place] [facility] #[id number], [address], [place], [place], [id number], 4 14:10:12 meloxicam 15 mg tablet 2023 [place] [facility] #[id number], [address], [place], [place], [id number], 5 14:38:55 oxycodone 5 mg tablet 2023 [facility] #[id number], [address], [place], [place], [id number], 4 14:10:23 Patient TargetsNo targets recorded. Patient InstructionsNo instructions recorded. Reason for Referral Cardiopulmonary Rehab Referr al for Chronic obstructive pulmonary disease patient with COPD on supplemental O2; gets fatigued easily Referring Physician: Lianne Stack [facility], Encounter Date: 05/31/2024 Personnel Assistant Referral for Russ n on eye movement blurry vision and pain with eye movement, subconjunctival hemorrhage of left eye Referring Physician: Lianne Stack [facility], Encounter Date: 07/21/2024 Pain Management Referral for Chronic low back pain Chronic back pain; patient open to back injections after having tried multiple pain medications Referring Physician: Lianne Stack, Family Medicine, Encounter Date: 11/02/2024 Results Created Date Observation Date Name Description Value Unit Range Abnormal Flag Note LastModifiedBy Organization Detail LastModifiedTime 05/15/2005/15/2024 influ bryanna virus A + B + SARS- CoV-2 (COVI D19) Ag panel , rapid IA, upper respi rator y speci men Flu A negati ve Not Available In-Office Order Internal Use Only DO Not Attach Compendium DO Not Attach Compendium, Do Not Delete/merge, [id number] 05/15/2024 15:50:55 05/15/2005/15/2024 influ bryanna virus A + B + SARS- CoV-2 (COVI D19) Ag panel , rapid IA, upper respi rator y speci men Flu B negati ve Not Available In-Office Order Internal Use Only DO Not Attach Compendium DO Not Attach Compendium, Do Not Delete/merge, [id number] 05/15/2024 15:50:55 05/15/20 24 05/15/2024 influ bryanna virus A + B + SARS- CoV-2 (COVI D19) Ag panel , rapid IA, upper respi rator y speci men Rapid SARS CoV 2 Ag, QL IA, respiratory specimen negati ve Not Available In-Office Order Internal Use Only DO Not Attach Compendium DO Not Attach Compendium, Do Not Delete/merge, [id number] 05/15/2024 15:50:55 05/31/2005/31/2024 BASIC METAB OLIC PANEL (8) glucose 95 mg/dL 70-99 Not Available [facility] [address] [place], [address], 06/01/2024 03:36:48 05/31/20 24 05/31/2024 BASIC METAB OLIC PANEL (8) BUN 20 mg/dL 8-27 Not Available [facility] [address] [place], [address], 06/01/2024 03:36:48 05/31/2005/31/2024 BASIC METAB OLIC PANEL (8) creatinine 1.06 mg/dL 0.76-1 .27 Not Available [facility] [address] [place], [address], 06/01/2024 03:36:48 05/31/20 24 05/31/2024 BASIC METAB OLIC PANEL (8) eGFR 59 >=60 below low normal Units for eGFR value s are mL/mi n/1.7 3 The eGFR Calcu latio n has not been valid ated for patie nts under the age of 18. If test resul ts are displ ayed for a patie nt under the age of 18, disre kandice that value . Not Available [facility] [address] [place] [address], [address], 06/01/2024 03:36:48 05/31/2005/31/2024 BASIC METAB OLIC PANEL (8) BUN/creatini ne ratio 19 10-28 Not Available [facility] [address] [place], [address], 06/01/2024 03:36:48 05/31/2005/31/2024 BASIC METAB OLIC PANEL (8) sodium 140 mmol/ L 134-14 4 Not Available [facility] [address] [place], [address], 06/01/2024 03:36:48 05/31/2005/31/2024 BASIC METAB OLIC PANEL (8) potassium 4.7 mmol/ L 3.5-5. 2 Not Available [facility] [address] [place], [address], 06/01/2024 03:36:48 05/31/20 24 05/31/2024 BASIC METAB OLIC PANEL (8) chloride 103 mmol/ L 96-106 Not Available [facility] [address] [place], [address], 06/01/2024 03:36:48 05/31/20 24 05/31/2024 BASIC METAB OLIC PANEL (8) carbon dioxide, total 25 mmol/ L 20-29 Not Available [facility] [address] [place], [address], 06/01/2024 03:36:48 05/31/20 24 05/31/2024 BASIC METAB OLIC PANEL (8) calcium 9.2 mg/dL 8.7-10 .3 Not Available [facility] [address] [place], [address], 06/01/2024 03:36:48 05/31/2006/01/2024 TSH RFX ON ABNOR MAL TO FREE T4 TSH 1.560 uIU/m L 0.450- 4.500 Not Available [facility] ([facility]) [address] [facility] [address], [place], [address], 06/01/2024 14:36:15 06/03/20 24 06/03/2024 Methi cilli n resis tant Staph yloco ccus aureu s (MRSA ) DNA [Pres ence] in Speci men by IWONA with probe detec tion methicillin resistant staphylococc us aureus (MRSA) DNA [presence] in specimen by IWONA with probe detection Negati ve text: negati ve, invali d MRSA PCR RESUL T Negat tommy Negat tommy, Inval id 06/03 4:18 PM CDT [facility] Not Available Not Available 09/22/2024 21:59:29 06/03/20 24 06/03/2024 Methi cilli n resis tant Staph yloco ccus aureu s (MRSA ) DNA [Pres ence] in Speci men by IWONA with probe detec tion interpretati on and review of laboratory results Normal Not Available Not Available 09/03 21:59:29 06/03/20 24 06/03/2024 Gas panel - Arter ial blood oxygen gas flow oxygen delivery system 4lpm/n c O2 STATU S 4lpm/ nc 06/03 11:25 AM CDT [facility] Ayala [facility] Not Available Not Available 09/22/2024 21:59:29 06/03/20 24 06/03/2024 Gas panel - Arter ial blood pH of arterial blood 7.31 low: 7.35hi gh: 7.45 low PH ARTER IAL 7.31 (L) 7.35 - 7.45 06/03 11:25 AM CDT [facility] MELENDEZT Jamie [facility] Not Available Not Available 09/22/2024 21:59:29 06/03/20 24 06/03/2024 Gas panel - Arter ial blood carbon dioxide [partial pressure] in arterial blood 68 text: 35 - 45 mmHg high PC02 (SKY RIAL) 68 (H) 35 - 45 mmHg 06/03 11:25 AM CDT [facility] H [facility] Not Available Not Available 09/22/2024 21:59:29 06/03/20 24 06/03/2024 Gas panel - Arter ial blood oxygen [partial pressure] in arterial blood 62 text: 75 - 100 mmHg low PO2 (SKY RIAL) 62 (L) 75 - 100 mmHg 06/03 11:25 AM CDT [facility] Ayala [facility] Not Available Not Available 09/22/2024 21:59:29 06/03/20 24 06/03/2024 Gas panel - Arter ial blood oxygen saturation in arterial blood 88 % low: 94%hig h: 100% low O2 SAT ART, MEASU RED 88 (L) 94 - 100 % 06/03 11:25 AM CDT [facility] Not Available Not Available 09/22/2024 21:59:29 06/03/20 24 06/03/2024 Gas panel - Arter ial blood base arterial 6.5 mmol/ L low: -2mmol /Lhigh : 2mmol/ L high BASE ARTER IAL 6.5 (H) -2.0 - 2.0 mmol/ L 06/03 11:25 AM [facility] Not Available Not Available 09/22/2024 21:59:29 06/03/20 24 06/03/2024 Gas panel - Arter ial blood bicarbonate [moles/volum e] in blood 34.4 mmol/ L low: 22mmol /Lhigh : 26mmol /L high BICAR BONAT E 34.4 (H) 22.0 - 26.0 mmol/ L 06/03 11:25 AM [facility] Not Available Not Available 09/22/2024 21:59:29 06/03/20 24 06/03/2024 Gas panel - Arter ial blood arterial patency wrist artery --pre arterial puncture Positi ve - Right Radial LULU 'S TEST RESUL TS Posit tommy - Right Radia l 06/03 11:25 AM CD[facility] Not Available Not Available 09/22/2024 21:59:29 06/03/20 24 06/03/2024 Gas panel - Arter ial blood carboxyhemog lobin/hemogl obin.total in blood 1 % low: 0%high : 5% CARBO XYHEM OGLOB IN 1.0 0.0 - 5.0 % 06/03 11:25 AM CDT [facility] Not Available Not Available 09/22/2024 21:59:29 06/03/20 24 06/03/2024 Gas panel - Arter ial blood methemoglobi n/hemoglobin .total in blood 0.4 % low: 0%high : 1.5% METHE MOGLO BIN 0.4 0.0 - 1.5 % 06/03 11:25 AM CDT [facility] Not Available Not Available 09/22/2024 21:59:29 06/03/20 24 06/03/2024 Gas panel - Arter ial blood interpretati on and review of laboratory results Abnorm al Not Available Not Available 21:59:29 06/03/20 24 06/03/2024 Lacta te [Mole s/vol ume] in Serum or Plasm a lactate [moles/volum e] in serum or plasma 1.3 mmol/ L low: 0.7mmo l/Lhig h: 2mmol/ L LACTI C ACID 1.3 0.7 - 2.0 mmol/ L 06/03 11:35 AM CDT [facility] Not Available Not Available 09/22/2024 21:59:28 06/03/20 24 06/03/2024 Lacta te [Mole s/vol ume] in Serum or Plasm a interpretati on and review of laboratory results Normal Not Available Not Available 09/03 21:59:28 06/03/20 24 06/03/2024 Natri ureti c pepti de B [Mass /volu me] in Serum or Plasm a natriuretic peptide B [mass/volume ] in serum or plasma 156 pg/mL high: 100pg/ mL high B TYPE NATRI URETI C PEPTI DE 156 (H) <100 pg/mL 06/03 11:56 AM CDT [facility] Not Available Not Available 09/22/2024 21:59:28 06/03/20 24 06/03/2024 Natri ureti c pepti de B [Mass /volu me] in Serum or Plasm a interpretati on and review of laboratory results Abnorm al Not Available Not Available 21:59:28 06/03/20 24 06/03/2024 Magne sium [Mass /volu me] in Serum or Plasm a magnesium [mass/volume ] in serum or plasma 2.6 mg/dL low: 1.6mg/ dLhigh : 2.6mg/ dL MAGNE SIUM 2.6 1.6 - 2.6 mg/dL 06/03 11:41 AM CDT [facility] Not Available Not Available 09/22/2024 21:59:28 06/03/20 24 06/03/2024 Magne sium [Mass /volu me] in Serum or Plasm a interpretati on and review of laboratory results Normal Not Available Not Available 09/03 21:59:28 06/03/20 24 06/03/2024 Compr ehens tommy metab olic 2000 panel - Serum or Plasm a sodium [moles/volum e] in serum or plasma 140 mmol/ L low: 136mmo l/Lhig h: 145mmo l/L SODIU M 140 136 - 145 mmol/ L 06/03 11:41 AM CDT [facility] Not Available Not Available 09/22/2024 21:59:28 06/03/20 24 06/03/2024 Compr ehens tommy metab olic 2000 panel - Serum or Plasm a potassium [moles/volum e] in serum or plasma 4.7 mmol/ L low: 3.5mmo l/Lhig h: 5.1mmo l/L POTAS SIUM 4.7 3.5 - 5.1 mmol/ L 06/03 11:41 AM CDT [facility] Not Available Not Available 09/22/2024 21:59:28 06/03/20 24 06/03/2024 Compr ehens tommy metab olic 2000 panel - Serum or Plasm a chloride [moles/volum e] in serum or plasma 102 mmol/ L low: 98mmol /Lhigh : 107mmo l/L CHLOR ISABEL 102 98 - 107 mmol/ L 06/03 11:41 AM CDT [facility] Not Available Not Available 09/22/2024 21:59:28 06/03/20 24 06/03/2024 Compr ehens tommy metab olic 1999 panel - Serum or Plasm a carbon dioxide, total [moles/volum e] in serum or plasma 31 mmol/ L low: 22mmol /Lhigh : 30mmol /L high CO2, VENOU S 31 (H) 22 - 30 mmol/ L 06/03 11:41 AM CDT [facility] Not Available Not Available 09/22/2024 21:59:28 06/03/20 24 06/03/2024 Compr ehens tommy metab olic 1999 panel - Serum or Plasm a anion gap in serum or plasma 11.7 mmol/ L high: 18mmol /L ANION GAP 11.7 <18.0 mmol/ L 06/03 11:41 AM CDT [facility] Not Available Not Available 09/22/2024 21:59:28 06/03/20 24 06/03/2024 Compr Nephrosens tommy metab olic 1999 panel - Serum or Plasm a glucose [mass/volume ] in serum or plasma 111 mg/dL low: 70mg/d Lhigh: 99mg/d L high GLUCO SE 111 (H) 70 - 99 mg/dL 06/03 11:41 AM CDT [facility] Not Available Not Available 09/22/2024 21:59:28 06/03/20 24 06/03/2024 Compr ehens tommy metab olic 1999 panel - Serum or Plasm a urea nitrogen [mass/volume ] in serum or plasma 21 mg/dL low: 10mg/d Lhigh: 20mg/d L high BUN 21 (H) 10 - 20 mg/dL 06/03 11:41 AM CDT [facility] Not Available Not Available 09/22/2024 21:59:28 06/03/20 24 06/03/2024 Compr Nephrosens tommy metab olic 1999 panel - Serum or Plasm a creatinine [mass/volume ] in serum or plasma 0.97 mg/dL low: 0.6mg/ dLhigh : 1mg/dL CREAT ININE , BLOOD 0.97 0.60 - 1.00 mg/dL 06/03 11:41 AM CDT [facility] Not Available Not Available 09/22/2024 21:59:28 06/03/20 24 06/03/2024 Compr Nephrosens tommy metab olic 2000 panel - Serum or Plasm a urea nitrogen/cre atinine [mass ratio] in serum or plasma 22 text: 12 - 20 ratio high BUN/C REATI NINE RATIO 22 (H) 12 - 20 ratio 06/03 11:41 AM CDT [facility] Not Available Not Available 09/22/2024 21:59:28 06/03/20 24 06/03/2024 Compr ehens tommy metab olic 2000 panel - Serum or Plasm a protein [mass/volume ] in serum or plasma 6.6 g/dL low: 6.3g/d Lhigh: 8.2g/d L TOTAL PROTE IN 6.6 6.3 - 8.2 g/dL 06/03 11:41 AM CDT [facility] Not Available Not Available 09/22/2024 21:59:28 06/03/20 24 06/03/2024 Compr Nephrosens tommy metab olic 2000 panel - Serum or Plasm a albumin [mass/volume ] in serum or plasma 4 g/dL low: 3.5g/d Lhigh: 5g/dL ALBUM IN 4.0 3.5 - 5.0 g/dL 06/03 11:41 AM CDT [facility] Not Available Not Available 09/22/2024 21:59:28 06/03/20 24 06/03/2024 Compr Nephrosens tommy metab olic 2000 panel - Serum or Plasm a albumin/glob ulin [mass ratio] in serum or plasma 1.5 low: 1high: 2.2 A/G RATIO 1.5 1.0 - 2.2 06/03 11:41 AM CDT [facility] Not Available Not Available 09/22/2024 21:59:28 06/03/20 24 06/03/2024 Compr SoMoLend tommy metab olic 2000 panel - Serum or Plasm a calcium [mass/volume ] in serum or plasma 9.5 mg/dL low: 8.7mg/ dLhigh : 10.5mg /dL CALCI UM 9.5 8.7 - 10.5 mg/dL 06/03 11:41 AM CDT [facility] Not Available Not Available 09/22/2024 21:59:28 06/03/20 24 06/03/2024 Compr Nephrosens tommy metab olic 2000 panel - Serum or Plasm a bilirubin.to godwin [mass/volume ] in serum or plasma 0.4 mg/dL low: 0.2mg/ dLhigh : 1.2mg/ dL T BILI 0.4 0.2 - 1.2 mg/dL 06/03 11:41 AM CDT [facility] Not Available Not Available 09/22/2024 21:59:28 06/03/20 24 06/03/2024 Compr Nephrosens tommy metab olic 1999 panel - Serum or Plasm a aspartate aminotransfe rase [enzymatic activity/vol ume] in serum or plasma 16 U/L low: 5U/Lhi gh: 34U/L SGOT (AST) 16 5 - 34 U/L 06/03 11:41 AM CDT [facility] Not Available Not Available 09/22/2024 21:59:28 06/03/20 24 06/03/2024 Compr ehens tommy metab olic 1999 panel - Serum or Plasm a alanine aminotransfe rase [enzymatic activity/vol ume] in serum or plasma 19 U/L low: 0U/Lhi gh: 55U/L SGPT (ALT) 19 0 - 55 U/L 06/03 11:41 AM CDT [facility] Not Available Not Available 09/22/2024 21:59:28 06/03/20 24 06/03/2024 Compr Nephrosens tommy metab olic 1999 panel - Serum or Plasm a alkaline phosphatase [enzymatic activity/vol ume] in serum or plasma 118 U/L low: 40U/Lh igh: 150U/L ALKAL INE PHOSP HATAS E 118 40 - 150 U/L 06/03 11:41 AM CDT [facility] Not Available Not Available 09/22/2024 21:59:28 06/03/20 24 06/03/2024 Compr ehens tommy metab olic 1999 panel - Serum or Plasm a glomerular filtration rate/1.73 sq M.predicted among non-blacks [volume rate/area] in serum, plasma or blood by creatinine-b ased formula (MDRD) low: 60 GFR, ESTIM ATED >60 >=60 06/03 11:41 AM CDT [facility] Not Available Not Available 09/22/2024 21:59:28 06/03/20 24 06/03/2024 Compr ehens tommy metab olic 2000 panel - Serum or Plasm a glomerular filtration rate/1.73 sq M.predicted among blacks [volume rate/area] in serum, plasma or blood by creatinine-b ased formula (MDRD) low: 60 GFR, EST. AFRIC AN >60 >=60 06/03 11:41 AM CDT [facility] Not Available Not Available 09/22/2024 21:59:28 06/03/20 24 06/03/2024 Compr ehens tommy metab olic 2000 panel - Serum or Plasm a glomerular filtration rate/1.73 sq M.predicted among non-blacks [volume rate/area] in serum, plasma or blood by creatinine-b ased formula (MDRD) 58 low: 60 low GFR, EST. NONAF RICAN 58 (L) >=60 06/03 11:41 AM CDT [facility] Not Available Not Available 09/22/2024 21:59:28 06/03/20 24 06/03/2024 Compr ehens tommy metab olic 2000 panel - Serum or Plasm a interpretati on and review of laboratory results Abnorm al Not Available Not Available 21:59:28 06/03/20 24 06/03/2024 Influ bryanna virus A and B and SARS- CoV-2 (COVI D-19) and Respi rator y syncy tial virus RNA panel - Respi rator y syste m speci men by IWONA with probe detec tion influenza virus A RNA [presence] in upper respiratory specimen by IWONA with probe detection Negati ve text: negati ve, error FLU A Negat tommy Negat tommy, Error 06/03 12:00 PM CDT [facility] Not Available Not Available 09/22/2024 21:59:28 06/03/20 24 06/03/2024 Influ bryanna virus A and B and SARS- CoV-2 (COVI D-19) and Respi rator y syncy tial virus RNA panel - Respi rator y syste m speci men by IWONA with probe detec tion influenza virus B RNA [presence] in upper respiratory specimen by IWONA with probe detection Negati ve text: negati ve FLU B Negat tommy Negat tommy 06/03 12:00 PM CDT [facility] Not Available Not Available 09/22/2024 21:59:28 06/03/20 24 06/03/2024 Influ bryanna virus A and B and SARS- CoV-2 (COVI D-19) and Respi rator y syncy tial virus RNA panel - Respi rator y syste m speci men by IWONA with probe detec tion respiratory syncytial virus RNA [presence] in respiratory system specimen by IWONA with probe detection Negati ve text: negati ve RESP SYNC VIRUS Negat tommy Negat tommy 06/03 12:00 PM CDT [facility] Not Available Not Available 09/22/2024 21:59:28 06/03/20 24 06/03/2024 Influ bryanna virus A and B and SARS- CoV-2 (COVI D-19) and Respi rator y syncy tial virus RNA panel - Respi rator y syste m speci men by IWONA with probe detec tion sars-cov-2 (covid-19) N gene [presence] in specimen by IWONA with probe detection NOT DETECT ED text: (refer ence range for this test IS not detect ed) SARSC OV2 NOT DETEC JOÃO (Refe rence Range for this test is Not Detec joão) 06/03 12:00 PM CDT [facility] Not Available Not Available 09/22/2024 21:59:28 06/03/20 24 06/03/2024 Influ bryanna virus A and B and SARS- CoV-2 (COVI D-19) and Respi rator y syncy tial virus RNA panel - Respi rator y syste m speci men by IWONA with probe detec tion Unknown Analyte This test has not been FDA cleare d or approv ed; the test has been author ized by FDA under an Emerge ncy Use Author sen munoz (LISA) for use by fernie doe under the CLIA that meet the requir ements to perfor m modera te, high or waived comple xity tests. Author ized Fact Sheets about this test for provid ers and patien ts are availa ble at: https: //www. fda.go v/medi cyn-de vices/ emerge ncy-si tuatio ns-med ical-d evices /emerg ency-u se-aut horiza tions This test has not been FDA clear ed or appro alvaro; the test has been autho rized by FDA under an Emerg ency Use Autho rizat ion (EUA) for use by labor atori es certi fied under the CLIA that meet the requi remen ts to perfo rm moder ate, high or waive d compl exity tests . Autho rized Fact Sheet s about this test for provi ders and patie nts are avail able at: https ://ww w.fda .gov/ medic al-de vices /ian gency -situ ation s-med ical- devic es/em ergen cy-us e-aut horiz ation s Not Available Not Available 09/22/2024 21:59:28 06/03/20 24 06/03/2024 Influ bryanna virus A and B and SARS- CoV-2 (COVI D-19) and Respi rator y syncy tial virus RNA panel - Respi rator y syste m speci men by IWONA with probe detec tion interpretati on and review of laboratory results Normal Not Available Not Available 09/03 21:59:28 06/06/20 24 06/06/2024 Basic metab olic 1999 panel - Serum or Plasm a sodium [moles/volum e] in serum or plasma 139 mmol/ L low: 136mmo l/Lhig h: 145mmo l/L SODIU M 139 136 - 145 mmol/ L 06/06 6:48 AM LOSS CONTROL MANAGER [facility] Not Available Not Available 09/22/2024 21:59:29 06/06/20 24 06/06/2024 Basic metab olic 1999 panel - Serum or Plasm a potassium [moles/volum e] in serum or plasma 4.6 mmol/ L low: 3.5mmo l/Lhig h: 5.1mmo l/L POTAS SIUM 4.6 3.5 - 5.1 mmol/ L 06/06 6:48 AM [facility] Not Available Not Available 09/22/2024 21:59:29 06/06/20 24 06/06/2024 Basic metab olic 2000 panel - Serum or Plasm a chloride [moles/volum e] in serum or plasma 98 mmol/ L low: 98mmol /Lhigh : 107mmo l/L CHLOR ISABEL 98 98 - 107 mmol/ L 06/06 6:48 AM [facility] Not Available Not Available 09/22/2024 21:59:29 06/06/20 24 06/06/2024 Basic metab olic 2000 panel - Serum or Plasm a carbon dioxide, total [moles/volum e] in serum or plasma 33 mmol/ L low: 22mmol /Lhigh : 30mmol /L high CO2, VENOU S 33 (H) 22 - 30 mmol/ L 06/06 6:48 AM [facility] Not Available Not Available 09/22/2024 21:59:29 06/06/20 24 06/06/2024 Basic metab olic 2000 panel - Serum or Plasm a anion gap in serum or plasma 12.6 mmol/ L high: 18mmol /L ANION GAP 12.6 <18.0 mmol/ L 06/06 6:48 AM [facility] Not Available Not Available 09/22/2024 21:59:29 06/06/20 24 06/06/2024 Basic metab olic 2000 panel - Serum or Plasm a glucose [mass/volume ] in serum or plasma 101 mg/dL low: 70mg/d Lhigh: 99mg/d L high GLUCO SE 101 (H) 70 - 99 mg/dL 06/06 6:48 AM [place] [facility] Not Available Not Available 09/22/2024 21:59:29 06/06/20 24 06/06/2024 Basic metab olic 2000 panel - Serum or Plasm a urea nitrogen [mass/volume ] in serum or plasma 32 mg/dL low: 10mg/d Lhigh: 20mg/d L high BUN 32 (H) 10 - 20 mg/dL 06/06 6:48 AM LOSS CONTROL MANAGER [facility] Not Available Not Available 09/22/2024 21:59:29 06/06/20 24 06/06/2024 Basic metab olic 2000 panel - Serum or Plasm a creatinine [mass/volume ] in serum or plasma 1.05 mg/dL low: 0.6mg/ dLhigh : 1mg/dL high CREAT ININE , BLOOD 1.05 (H) 0.60 - 1.00 mg/dL 06/06 6:48 AM LOSS CONTROL MANAGER [facility] Not Available Not Available 09/22/2024 21:59:29 06/06/20 24 06/06/2024 Basic metab olic 1999 panel - Serum or Plasm a urea nitrogen/cre atinine [mass ratio] in serum or plasma 30 text: 12 - 20 ratio high BUN/C REATI NINE RATIO 30 (H) 12 - 20 ratio 06/06 6:48 AM LOSS CONTROL MANAGER [facility] Not Available Not Available 09/22/2024 21:59:29 06/06/20 24 06/06/2024 Basic metab olic 1999 panel - Serum or Plasm a calcium [mass/volume ] in serum or plasma 9.6 mg/dL low: 8.7mg/ dLhigh : 10.5mg /dL CALCI UM 9.6 8.7 - 10.5 mg/dL 06/06 6:48 AM LOSS CONTROL MANAGER [facility] Not Available Not Available 09/22/2024 21:59:29 06/06/20 24 06/06/2024 Basic metab olic 1999 panel - Serum or Plasm a glomerular filtration rate/1.73 sq M.predicted among non-blacks [volume rate/area] in serum, plasma or blood by creatinine-b ased formula (MDRD) 60 low: 60 GFR, ESTIM ATED 60 >=60 06/06 6:48 AM LOSS CONTROL MANAGER [facility] Not Available Not Available 09/22/2024 21:59:29 06/06/20 24 06/06/2024 Basic metab olic 2000 panel - Serum or Plasm a glomerular filtration rate/1.73 sq M.predicted among blacks [volume rate/area] in serum, plasma or blood by creatinine-b ased formula (MDRD) low: 60 GFR, EST. 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[employer] [facility] [employer] [facility] Not Available Not Available 09/22/2024 21:59:29 06/06/20 24 06/06/2024 Basic metab olic 2000 panel - Serum or Plasm a interpretati on and review of laboratory results Abnorm al Not Available Not Available 21:59:29 06/06/20 24 06/06/2024 CBC W Auto Diffe renti al panel - Blood leukocytes [#/volume] in blood by automated count 11.69 text: 4.00 - 12.00 10(3)/ mcL WBC 11.69 4.00 - 12.00 10(3) /mcL 06/06 8:26 AM LOSS CONTROL MANAGER [facility] [employer] [facility] Not Available Not Available 09/22/2024 21:59:29 06/06/20 24 06/06/2024 CBC W Auto Diffe renti al panel - Blood erythrocytes [#/volume] in blood by automated count 4.61 text: 3.80 - 5.30 10(6)/ mcL RBC 4.61 3.80 - 5.30 10(6) /mcL 06/06 8:26 AM [facility] CONTROL [facility] [employer] [facility] Not Available Not Available 09/22/2024 21:59:29 06/06/20 24 06/06/2024 CBC W Auto Diffe renti al panel - Blood hemoglobin [mass/volume ] in blood 13 g/dL low: 12g/dL high: 15.8g/ dL HEMOG LOBIN (HGB) 13.0 12.0 - 15.8 g/dL 06/06 8:26 AM [facility] CONTROL [facility] Not Available Not Available 09/22/2024 21:59:29 06/06/20 24 06/06/2024 CBC W Auto Diffe renti al panel - Blood hematocrit [volume fraction] of blood by automated count 42.2 % low: 36%hig h: 47% HEMAT OCRIT (HCT) 42.2 36.0 - 47.0 % 06/06 8:26 AM [facility] Not Available Not Available 09/22/2024 21:59:29 06/06/20 24 06/06/2024 CBC W Auto Diffe renti al panel - Blood MCV [entitic volume] by automated count 91.5 fL low: 82fLhi gh: 96fL MCV 91.5 82.0 - 96.0 fL 06/06 8:26 AM LOSS CONTROL MANAGER [facility] Not Available Not Available 09/22/2024 21:59:29 06/06/20 24 06/06/2024 CBC W Auto Diffe renti al panel - Blood MCH [entitic mass] by automated count 28.2 pg low: 26pghi gh: 34pg MCH 28.2 26.0 - 34.0 pg 06/06 8:26 AM [facility] Not Available Not Available 09/22/2024 21:59:29 06/06/20 24 06/06/2024 CBC W Auto Diffe renti al panel - Blood MCHC [mass/volume ] by automated count 30.8 g/dL low: 31g/dL high: 36g/dL low MCHC 30.8 (L) 31.0 - 36.0 g/dL 06/06 8:26 AM [facility] Not Available Not Available 09/22/2024 21:59:29 06/06/20 24 06/06/2024 CBC W Auto Diffe renti al panel - Blood platelets [#/volume] in blood 293 text: 140 - 440 10(3)/ mcL PLATE LET COUNT 293 140 - 440 10(3) /mcL 06/06 8:26 AM LOSS CONTROL MANAGER [facility] Not Available Not Available 09/22/2024 21:59:29 06/06/20 24 06/06/2024 CBC W Auto Diffe renti al panel - Blood erythrocyte distribution width [ratio] by automated count 15.2 % low: 11.8%h igh: 15.5% RDW 15.2 11.8 - 15.5 % 06/06 8:26 AM LOSS CONTROL MANAGER [facility] Not Available Not Available 09/22/2024 21:59:29 06/06/20 24 06/06/2024 CBC W Auto Diffe renti al panel - Blood platelet mean volume [entitic volume] in blood by automated count 9.4 fL low: 9.7fLh igh: 12.4fL low MPV 9.4 (L) 9.7 - 12.4 fL 06/06 8:26 AM [facility] Not Available Not Available 09/22/2024 21:59:29 06/06/20 24 06/06/2024 CBC W Auto Diffe renti al panel - Blood neutrophils/ 100 leukocytes in blood by automated count 91.6 % low: 47%hig h: 73% high NEUTR OPHIL S 91.6 (H) 47.0 - 73.0 % 06/06 8:26 AM LOSS CONTROL MANAGER [facility] Not Available Not Available 09/22/2024 21:59:29 06/06/20 24 06/06/2024 CBC W Auto Diffe renti al panel - Blood lymphocytes/ 100 leukocytes in blood by automated count 4.8 % low: 18%hig h: 42% low LYMPH OCYTE S 4.8 (L) 18.0 - 42.0 % 06/06 8:26 AM [facility] Not Available Not Available 09/22/2024 21:59:29 11/05/20 24 06/06/2024 CBC W Auto Diffe renti al panel - Blood monocytes/10 0 leukocytes in blood by automated count 3.6 % low: 4%high : 12% low MONOC YTES 3.6 (L) 4.0 - 12.0 % 06/06 8:26 AM LOSS CONTROL [facility] Not Available Not Available 09/22/2024 21:59:29 06/06/20 24 06/06/2024 CBC W Auto Diffe renti al panel - Blood eosinophils/ 100 leukocytes in blood by automated count 0 % low: 0%high : 5% EOSIN OPHIL S 0.0 0.0 - 5.0 % 06/06 8:26 AM LOSS CONTROL MANAGER [facility] Not Available Not Available 09/22/2024 21:59:29 06/06/20 24 06/06/2024 CBC W Auto Diffe renti al panel - Blood basophils/10 0 leukocytes in blood by automated count 0 % low: 0%high : 1% BASOP HILS 0.0 0.0 - 1.0 % 06/06 8:26 AM LOSS CONTROL MANA[facility] Not Available Not Available 09/22/2024 21:59:29 06/06/20 24 06/06/2024 CBC W Auto Diffe renti al panel - Blood neutrophils [#/volume] in blood by automated count 10.71 text: 1.60 - 7.70 10(3)/ mcL high ABSOL [place] NEUTR OPHIL S 10.71 (H) 1.60 - 7.70 10(3) /mcL 06/06 8:26 AM LOSS CONTROL MANAGER [facility] Not Available Not Available 09/22/2024 21:59:29 06/06/20 24 06/06/2024 CBC W Auto Diffe renti al panel - Blood lymphocytes [#/volume] in blood by automated count 0.56 text: 1.30 - 3.20 10(3)/ mcL low ABSOL [place] LYMPH OCYTE S 0.56 (L) 1.30 - 3.20 10(3) /mcL 06/06 8:26 AM LOSS CONTROL MANAGER [facility] Not Available Not Available 09/22/2024 21:59:29 06/06/20 24 06/06/2024 CBC W Auto Diffe renti al panel - Blood monocytes [#/volume] in blood by automated count 0.42 text: 0.20 - 1.00 10(3)/ mcL ABSOL [place] MONOC YTES 0.42 0.20 - 1.00 10(3) /mcL 06/06 8:26 AM LOSS CONTROL MANA[facility] Not Available Not Available 09/22/2024 21:59:29 06/06/20 24 06/06/2024 CBC W Auto Diffe renti al panel - Blood eosinophils [#/volume] in blood by automated count 0 text: 0.00 - 0.40 10(3)/ mcL ABSOL [place] EOSIN OPHIL 0.00 0.00 - 0.40 10(3) /mcL 06/06 8:26 AM LOSS CONTROL MANA[facility] Not Available Not Available 09/22/2024 21:59:29 06/06/20 24 06/06/2024 CBC W Auto Diffe renti al panel - Blood basophils [#/volume] in blood by automated count 0 text: 0.00 - 0.10 10(3)/ mcL ABSOL [place] BASOP HILS 0.00 0.00 - 0.10 10(3) /mcL 06/06 8:26 AM [facility] Not Available Not Available 09/22/2024 21:59:29 06/06/20 24 06/06/2024 CBC W Auto Diffe renti al panel - Blood nucleated erythrocytes /100 leukocytes [ratio] in blood 0 NRBC PER 100 WBC 0 06/06 8:26 AM [facility] Not Available Not Available 09/22/2024 21:59:29 06/06/20 24 06/06/2024 CBC W Auto Diffe renti al panel - Blood sfdc architect review of results Yes RESUL TS ARE CONSI STENT WITH PERIP HERAL SMEAR REVIE W Yes 06/06 8:26 AM LOSS CONTROL MANAGER [facility] Not Available Not Available 09/22/2024 21:59:29 06/06/2006/06/2024 CBC W Auto Diffe renti al panel - Blood interpretati on and review of laboratory results Abnorm al Not Available Not Available 21:59:29 10/09/19 25 10/08/2024 Gas panel - Arter ial blood oxygen gas flow oxygen delivery system 5L nc O2 STATU S 5L nc 10/08 8:34 PM [facility]T [facility] Not Available Not Available 10/19/2024 14:09:30 10/09/1910/08/2024 Gas panel - Arter ial blood pH of arterial blood 7.53 low: 7.35hi gh: 7.45 high PH ARTER IAL 7.53 (H) 7.35 - 7.45 10/08 8:34 PM CDT [facility] Not Available Not Available 10/19/2024 14:09:30 10/09/19 25 10/08/2024 Gas panel - Arter ial blood carbon dioxide [partial pressure] in arterial blood 29 text: 35 - 45 mmHg low PC02 (SKY RIAL) 29 (L) 35 - 45 mmHg 10/08 8:34 PM CDT [facility] Not Available Not Available 10/19/2024 14:09:30 10/09/19 25 10/08/2024 Gas panel - Arter ial blood oxygen [partial pressure] in arterial blood 88 text: 75 - 100 mmHg PO2 (SKY RIAL) 88 75 - 100 mmHg 10/08 8:34 PM CDT [facility] Not Available Not Available 10/19/2024 14:09:30 10/09/19 25 10/08/2024 Gas panel - Arter ial blood oxygen saturation in arterial blood 97 % low: 94%hig h: 100% O2 SAT ART, MEASU RED 97 94 - 100 % 10/08 8:34 PM CDT [facility] Not Available Not Available 10/19/2024 14:09:30 10/09/19 25 10/08/2024 Gas panel - Arter ial blood base arterial 3.1 mmol/ L low: -2mmol /Lhigh : 2mmol/ L high BASE ARTER IAL 3.1 (H) -2.0 - 2.0 mmol/ L 10/08 8:34 PM CDT [facility] Not Available Not Available 10/19/2024 14:09:30 10/09/1910/08/2024 Gas panel - Arter ial blood bicarbonate [moles/volum e] in blood 24.2 mmol/ L low: 22mmol /Lhigh : 26mmol /L BICAR BONAT E 24.2 22.0 - 26.0 mmol/ L 10/08 8:34 PM CDT [facility] Not Available Not Available 10/19/2024 14:09:30 10/09/1910/08/2024 Gas panel - Arter ial blood arterial patency wrist artery --pre arterial puncture Positi ve - Right Radial LULU 'S TEST RESUL TS Posit tommy - Right Radia l 10/08 8:34 PM CDT [facility] Not Available Not Available 10/19/2024 14:09:30 10/09/19 25 10/08/2024 Gas panel - Arter ial blood carboxyhemog lobin/hemogl obin.total in blood 0.7 % low: 0%high : 5% CARBO XYHEM OGLOB IN 0.7 0.0 - 5.0 % 10/08 8:34 PM CDT [facility] Not Available Not Available 10/19/2024 14:09:30 10/09/19 25 10/08/2024 Gas panel - Arter ial blood methemoglobi n/hemoglobin .total in blood 0.5 % low: 0%high : 1.5% METHE MOGLO BIN 0.5 0.0 - 1.5 % 10/08 8:34 PM [facility] Not Available Not Available 10/19/2024 14:09:30 10/09/19 25 10/08/2024 Gas panel - Arter ial blood interpretati on and review of laboratory results Abnorm al Not Available Not Available 14:09:30 10/09/19 25 10/08/2024 Magne sium [Mass /volu me] in Serum or Plasm a magnesium [mass/volume ] in serum or plasma 2.6 mg/dL low: 1.6mg/ dLhigh : 2.6mg/ dL MAGNE SIUM 2.6 1.6 - 2.6 mg/dL 10/08 8:42 PM CDT [facility] Not Available Not Available 10/19/2024 14:09:30 10/09/1910/08/2024 Magne sium [Mass /volu me] in Serum or Plasm a interpretati on and review of laboratory results Normal Not Available Not Available 10/01 14:09:30 10/09/19 25 10/08/2024 Compr ehens tommy metab olic 1999 panel - Serum or Plasm a sodium [moles/volum e] in serum or plasma 137 mmol/ L low: 136mmo l/Lhig h: 145mmo l/L SODIU M 137 136 - 145 mmol/ L 10/08 8:42 PM CDT [facility] Not Available Not Available 10/19/2024 14:09:30 10/09/1910/08/2024 Compr ehens tommy metab olic 1999 panel - Serum or Plasm a potassium [moles/volum e] in serum or plasma 4.2 mmol/ L low: 3.5mmo l/Lhig h: 5.1mmo l/L POTAS SIUM 4.2 3.5 - 5.1 mmol/ L 10/08 8:42 PM [facility]T [facility] Not Available Not Available 10/19/2024 14:09:30 10/09/19 25 10/08/2024 Compr ehens tommy metab olic 1999 panel - Serum or Plasm a chloride [moles/volum e] in serum or plasma 99 mmol/ L low: 98mmol /Lhigh : 107mmo l/L CHLOR ISABEL 99 98 - 107 mmol/ L 10/08 8:42 PM [facility] Not Available Not Available 10/19/2024 14:09:30 10/09/19 25 10/08/2024 Compr ehens tommy metab olic 2000 panel - Serum or Plasm a carbon dioxide, total [moles/volum e] in serum or plasma 23 mmol/ L low: 22mmol /Lhigh : 30mmol /L CO2, VENOU S 23 22 - 30 mmol/ L 10/08 8:42 PM [facility] Not Available Not Available 10/19/2024 14:09:30 10/09/19 25 10/08/2024 Compr ehens tommy metab olic 2000 panel - Serum or Plasm a anion gap in serum or plasma 19.2 mmol/ L high: 18mmol /L high ANION GAP 19.2 (H) <18.0 mmol/ L 10/08 8:42 PM [facility] Not Available Not Available 10/19/2024 14:09:30 10/09/19 25 10/08/2024 Compr ehens tommy metab olic 2000 panel - Serum or Plasm a glucose [mass/volume ] in serum or plasma 130 mg/dL low: 70mg/d Lhigh: 99mg/d L high GLUCO SE 130 (H) 70 - 99 mg/dL 10/08 8:42 PM CD[facility] Not Available Not Available 10/19/2024 14:09:30 10/09/19 25 10/08/2024 Compr ehens tommy metab olic 2000 panel - Serum or Plasm a urea nitrogen [mass/volume ] in serum or plasma 18 mg/dL low: 10mg/d Lhigh: 20mg/d L BUN 18 10 - 20 mg/dL 10/08 8:42 PM [facility] Not Available Not Available 10/19/2024 14:09:30 10/09/19 25 10/08/2024 Compr Nephrosens tommy metab olic 1999 panel - Serum or Plasm a creatinine [mass/volume ] in serum or plasma 1.28 mg/dL low: 0.6mg/ dLhigh : 1mg/dL high CREAT ININE , BLOOD 1.28 (H) 0.60 - 1.00 mg/dL 10/08 8:42 PM CDT [facility] Not Available Not Available 10/19/2024 14:09:30 10/09/19 25 10/08/2024 Compr ehens tommy metab olic 1999 panel - Serum or Plasm a urea nitrogen/cre atinine [mass ratio] in serum or plasma 14 text: 12 - 20 ratio BUN/C REATI NINE RATIO 14 12 - 20 ratio 10/08 8:42 PM CDT [facility] [employer] [facility] Not Available Not Available 10/19/2024 14:09:30 10/09/19 25 10/08/2024 Compr Nephrosens tommy metab olic 2000 panel - Serum or Plasm a protein [mass/volume ] in serum or plasma 8 g/dL low: 6g/dLh igh: 8g/dL TOTAL PROTE IN 8.0 6.0 - 8.0 g/dL 10/08 8:42 PM CDT [facility] [employer] [facility] Not Available Not Available 10/19/2024 14:09:30 10/09/19 25 10/08/2024 Compr Nephrosens tommy metab olic 2000 panel - Serum or Plasm a albumin [mass/volume ] in serum or plasma 4.3 g/dL low: 3.5g/d Lhigh: 5g/dL ALBUM IN 4.3 3.5 - 5.0 g/dL 10/08 8:42 PM CDT [facility] [employer] [facility] LAB Not Available Not Available 10/19/2024 14:09:30 10/09/19 25 10/08/2024 Compr Nephrosens tommy metab olic 2000 panel - Serum or Plasm a albumin/glob ulin [mass ratio] in serum or plasma 1.2 low: 1high: 2.2 A/G RATIO 1.2 1.0 - 2.2 10/08 8:42 PM CD[facility] Not Available Not Available 10/19/2024 14:09:30 10/09/19 25 10/08/2024 Compr ehens tommy metab olic 1999 panel - Serum or Plasm a calcium [mass/volume ] in serum or plasma 10.2 mg/dL low: 8.7mg/ dLhigh : 10.5mg /dL CALCI UM 10.2 8.7 - 10.5 mg/dL 10/08 8:42 PM CDT [facility] Not Available Not Available 10/19/2024 14:09:30 10/09/1910/08/2024 Compr ehens tommy metab olic 1999 panel - Serum or Plasm a bilirubin.to godwin [mass/volume ] in serum or plasma 0.4 mg/dL low: 0.2mg/ dLhigh : 1.2mg/ dL T BILI 0.4 0.2 - 1.2 mg/dL 10/08 8:42 PM CDT [facility] Not Available Not Available 10/19/2024 14:09:30 10/09/19 25 10/08/2024 Compr ehens tommy metab olic 1999 panel - Serum or Plasm a aspartate aminotransfe rase [enzymatic activity/vol ume] in serum or plasma 23 U/L high: 43U/L SGOT (AST) 23 <43 U/L 10/08 8:42 PM CDT [facility] Not Available Not Available 10/19/2024 14:09:30 10/09/19 25 10/08/2024 Compr ehens tommy metab olic 1999 panel - Serum or Plasm a alanine aminotransfe rase [enzymatic activity/vol ume] in serum or plasma 13 U/L high: 56U/L SGPT (ALT) 13 <56 U/L 10/08 8:42 PM CD[facility] Not Available Not Available 10/19/2024 14:09:30 10/09/19 25 10/08/2024 Compr ehens tommy metab olic 1999 panel - Serum or Plasm a alkaline phosphatase [enzymatic activity/vol ume] in serum or plasma 138 U/L low: 40U/Lh igh: 150U/L ALKAL INE PHOSP HATAS E 138 40 - 150 U/L 10/08 8:42 PM CDT [facility] Not Available Not Available 10/19/2024 14:09:30 10/09/1910/08/2024 Compr ehens tommy metab olic 1999 panel - Serum or Plasm a glomerular filtration rate/1.73 sq M.predicted among non-blacks [volume rate/area] in serum, plasma or blood by creatinine-b ased formula (MDRD) 47 low: 60 low GFR, ESTIM ATED 47 (L) >=60 10/08 8:42 PM CDT [facility] LAB Not Available Not Available 10/19/2024 14:09:30 10/09/1910/08/2024 Compr Nephrosens tommy metab olic 1999 panel - Serum or Plasm a glomerular filtration rate/1.73 sq M.predicted among blacks [volume rate/area] in serum, plasma or blood by creatinine-b ased formula (MDRD) 51 low: 60 low GFR, EST. AFRIC AN 51 (L) >=60 10/08 8:42 PM CDT [facility] LAB Not Available Not Available 10/19/2024 14:09:30 10/09/1910/08/2024 Compr ehens tommy metab olic 1999 panel - Serum or Plasm a glomerular filtration rate/1.73 sq M.predicted among non-blacks [volume rate/area] in serum, plasma or blood by creatinine-b ased formula (MDRD) 42 low: 60 low GFR, EST. NONAF RICAN 42 (L) >=60 10/08 8:42 PM CDT [facility] LAB Not Available Not Available 10/19/2024 14:09:30 10/09/19 25 10/08/2024 Compr ehens tommy metab olic 2000 panel - Serum or Plasm a interpretati on and review of laboratory results Abnorm al Not Available Not Available 14:09:30 10/09/19 25 10/08/2024 Influ bryanna virus A and B and SARS- CoV-2 (COVI D-19) and Respi rator y syncy tial virus RNA panel - Respi rator y syste m speci men by IWONA with probe detec tion influenza virus A RNA [presence] in upper respiratory specimen by IWONA with probe detection Negati ve text: negati ve, error FLU A Negat tommy Negat tommy, Error 10/08 9:00 PM CDT [facility] Not Available Not Available 10/19/2024 14:09:30 10/09/19 25 10/08/2024 Influ bryanna virus A and B and SARS- CoV-2 (COVI D-19) and Respi rator y syncy tial virus RNA panel - Respi rator y syste m speci men by IWONA with probe detec tion influenza virus B RNA [presence] in upper respiratory specimen by IWONA with probe detection Negati ve text: negati ve FLU B Negat tommy Negat tommy 10/08 9:00 PM CDT [facility] LAB Not Available Not Available 10/19/2024 14:09:30 10/09/19 25 10/08/2024 Influ bryanna virus A and B and SARS- CoV-2 (COVI D-19) and Respi rator y syncy tial virus RNA panel - Respi rator y syste m speci men by IWONA with probe detec tion respiratory syncytial virus RNA [presence] in respiratory system specimen by IWONA with probe detection Negati ve text: negati ve RESP SYNC VIRUS Negat tommy Negat tommy 10/08 9:00 PM CDT [facility] Not Available Not Available 10/19/2024 14:09:30 10/09/19 25 10/08/2024 Influ bryanna virus A and B and SARS- CoV-2 (COVI D-19) and Respi rator y syncy tial virus RNA panel - Respi rator y syste m speci men by IWONA with probe detec tion sars-cov-2 (covid-19) N gene [presence] in specimen by IWONA with probe detection NOT DETECT ED text: (refer ence range for this test IS not detect ed) SARSC OV2 NOT DETEC JOÃO (Refe rence Range for this test is Not Detec joão) 10/08 9:00 PM CDT [facility] [employer] [facility] Not Available Not Available 10/19/2024 14:09:30 10/09/1910/08/2024 Influ bryanna virus A and B and SARS- CoV-2 (COVI D-19) and Respi rator y syncy tial virus RNA panel - Respi rator y syste m speci men by IWONA with probe detec tion interpretati on and review of laboratory results Normal Not Available Not Available 10/01 14:09:30 10/10/19 25 10/09/2024 Thyro tropi n [Unit s/vol ume] in Serum or Plasm a thyrotropin [units/volum e] in serum or plasma 108.57 6 text: 0.300 - 5.000 mIU/L high TSH 108.5 76 (H) 0.300 - 5.000 mIU/L 10/09 7:13 AM CDT [facility] Not Available Not Available 10/19/2024 14:09:30 10/10/19 25 10/09/2024 Thyro tropi n [Unit s/vol ume] in Serum or Plasm a interpretati on and review of laboratory results Abnorm al Not Available Not Available 14:09:30 10/11/19 25 10/10/2024 Natri ureti c pepti de B [Mass /volu me] in Serum or Plasm a natriuretic peptide B [mass/volume ] in serum or plasma 81 pg/mL high: 100pg/ mL B TYPE NATRI URETI C PEPTI DE 81 <100 pg/mL 10/10 2:23 PM CDT [facility] Not Available Not Available 10/19/2024 14:09:30 10/11/19 25 10/10/2024 Natri ureti c pepti de B [Mass /volu me] in Serum or Plasm a interpretati on and review of laboratory results Normal Not Available Not Available 10/01 14:09:30 10/12/1910/11/2024 CBC W Auto Diffe renti al panel - Blood leukocytes [#/volume] in blood by automated count 15 text: 4.00 - 12.00 10(3)/ mcL high WBC 15.00 (H) 4.00 - 12.00 10(3) /mcL 10/11 6:00 AM CDT [facility] Not Available Not Available 10/19/2024 14:09:30 10/12/19 25 10/11/2024 CBC W Auto Diffe renti al panel - Blood erythrocytes [#/volume] in blood by automated count 4.09 text: 3.80 - 5.30 10(6)/ mcL RBC 4.09 3.80 - 5.30 10(6) /mcL 10/11 6:00 AM CDT [facility] Not Available Not Available 10/19/2024 14:09:30 10/12/19 25 10/11/2024 CBC W Auto Diffe renti al panel - Blood hemoglobin [mass/volume ] in blood 11.5 g/dL low: 12g/dL high: 15.8g/ dL low HEMOG LOBIN (HGB) 11.5 (L) 12.0 - 15.8 g/dL 10/11 6:00 AM CDT [facility] Not Available Not Available 10/19/2024 14:09:30 10/12/19 25 10/11/2024 CBC W Auto Diffe renti al panel - Blood hematocrit [volume fraction] of blood by automated count 36.9 % low: 36%hig h: 47% HEMAT OCRIT (HCT) 36.9 36.0 - 47.0 % 10/11 6:00 AM CDT [facility] Not Available Not Available 10/19/2024 14:09:30 10/12/19 25 10/11/2024 CBC W Auto Diffe renti al panel - Blood MCV [entitic volume] by automated count 90.2 fL low: 82fLhi gh: 96fL MCV 90.2 82.0 - 96.0 fL 10/11 6:00 AM [facility] Not Available Not Available 10/19/2024 14:09:30 10/12/19 25 10/11/2024 CBC W Auto Diffe renti al panel - Blood MCH [entitic mass] by automated count 28.1 pg low: 26pghi gh: 34pg MCH 28.1 26.0 - 34.0 pg 10/11 6:00 AM [facility] Not Available Not Available 10/19/2024 14:09:30 10/12/19 25 10/11/2024 CBC W Auto Diffe renti al panel - Blood MCHC [mass/volume ] by automated count 31.2 g/dL low: 31g/dL high: 36g/dL MCHC 31.2 31.0 - 36.0 g/dL 10/11 6:00 AM [facility] Not Available Not Available 10/19/2024 14:09:30 10/12/19 25 10/11/2024 CBC W Auto Diffe renti al panel - Blood platelets [#/volume] in blood 255 text: 140 - 440 10(3)/ mcL PLATE LET COUNT 255 140 - 440 10(3) /mcL 10/11 6:00 AM [facility] Not Available Not Available 10/19/2024 14:09:30 10/12/19 25 10/11/2024 CBC W Auto Diffe renti al panel - Blood erythrocyte distribution width [ratio] by automated count 15.1 % low: 11.8%h igh: 15.5% RDW 15.1 11.8 - 15.5 % 10/11 6:00 AM [facility] Not Available Not Available 10/19/2024 14:09:30 10/12/19 25 10/11/2024 CBC W Auto Diffe renti al panel - Blood platelet mean volume [entitic volume] in blood by automated count 10.6 fL low: 9.7fLh igh: 12.4fL MPV 10.6 9.7 - 12.4 fL 10/11 6:00 AM CDT [facility] Not Available Not Available 10/19/2024 14:09:30 10/12/19 25 10/11/2024 CBC W Auto Diffe renti al panel - Blood neutrophils/ 100 leukocytes in blood by automated count 95 % low: 47%hig h: 73% high NEUTR OPHIL S 95.0 (H) 47.0 - 73.0 % 10/11 6:00 AM CDT [facility] Not Available Not Available 10/19/2024 14:09:30 10/12/19 25 10/11/2024 CBC W Auto Diffe renti al panel - Blood lymphocytes/ 100 leukocytes in blood by automated count 3.7 % low: 18%hig h: 42% low LYMPH OCYTE S 3.7 (L) 18.0 - 42.0 % 10/11 6:00 AM CDT [facility] Not Available Not Available 10/19/2024 14:09:30 10/12/19 25 10/11/2024 CBC W Auto Diffe renti al panel - Blood monocytes/10 0 leukocytes in blood by automated count 1.2 % low: 4%high : 12% low MONOC YTES 1.2 (L) 4.0 - 12.0 % 10/11 6:00 AM CDT [facility] Not Available Not Available 10/19/2024 14:09:30 10/12/19 25 10/11/2024 CBC W Auto Diffe renti al panel - Blood eosinophils/ 100 leukocytes in blood by automated count 0 % low: 0%high : 5% EOSIN OPHIL S 0.0 0.0 - 5.0 % 10/11 6:00 AM CDT [facility] Not Available Not Available 10/19/2024 14:09:30 10/12/19 25 10/11/2024 CBC W Auto Diffe renti al panel - Blood basophils/10 0 leukocytes in blood by automated count 0.1 % low: 0%high : 1% BASOP HILS 0.1 0.0 - 1.0 % 10/11 6:00 AM [facility] Not Available Not Available 10/19/2024 14:09:30 10/12/19 25 10/11/2024 CBC W Auto Diffe renti al panel - Blood neutrophils [#/volume] in blood by automated count 14.26 text: 1.60 - 7.70 10(3)/ mcL high ABSOL [place] NEUTR OPHIL S 14.26 (H) 1.60 - 7.70 10(3) /mcL 10/11 6:00 AM CDT [facility] Not Available Not Available 10/19/2024 14:09:30 10/12/19 25 10/11/2024 CBC W Auto Diffe renti al panel - Blood lymphocytes [#/volume] in blood by automated count 0.55 text: 1.30 - 3.20 10(3)/ mcL low ABSOL [place] LYMPH OCYTE S 0.55 (L) 1.30 - 3.20 10(3) /mcL 10/11 6:00 AM CDT [facility] Not Available Not Available 10/19/2024 14:09:30 10/12/19 25 10/11/2024 CBC W Auto Diffe renti al panel - Blood monocytes [#/volume] in blood by automated count 0.18 text: 0.20 - 1.00 10(3)/ mcL low ABSOL [place] MONOC YTES 0.18 (L) 0.20 - 1.00 10(3) /mcL 10/11 6:00 AM CDT [facility] Not Available Not Available 10/19/2024 14:09:30 10/12/19 25 10/11/2024 CBC W Auto Diffe renti al panel - Blood eosinophils [#/volume] in blood by automated count 0 text: 0.00 - 0.40 10(3)/ mcL ABSOL [place] EOSIN OPHIL 0.00 0.00 - 0.40 10(3) /mcL 10/11 6:00 AM CDT [facility] Not Available Not Available 10/19/2024 14:09:30 10/12/19 25 10/11/2024 CBC W Auto Diffe renti al panel - Blood basophils [#/volume] in blood by automated count 0.01 text: 0.00 - 0.10 10(3)/ mcL ABSOL [place] BASOP HILS 0.01 0.00 - 0.10 10(3) /mcL 10/11 6:00 AM CDT [facility] Not Available Not Available 10/19/2024 14:09:30 10/12/19 25 10/11/2024 CBC W Auto Diffe renti al panel - Blood nucleated erythrocytes /100 leukocytes [ratio] in blood 0 NRBC PER 100 WBC 0 10/11 6:00 AM CDT [facility] Not Available Not Available 10/19/2024 14:09:30 10/12/19 25 10/11/2024 CBC W Auto Diffe renti al panel - Blood sfdc architect review of results Yes RESUL TS ARE CONSI STENT WITH PERIP HERAL SMEAR REVIE W Yes 10/11 6:00 AM CDT [facility] Not Available Not Available 10/19/2024 14:09:30 10/12/19 25 10/11/2024 CBC W Auto Diffe renti al panel - Blood interpretati on and review of laboratory results Abnorm al Not Available Not Available 14:09:30 10/12/19 25 10/11/2024 Basic metab olic 2000 panel - Serum or Plasm a sodium [moles/volum e] in serum or plasma 137 mmol/ L low: 136mmo l/Lhig h: 145mmo l/L SODIU M 137 136 - 145 mmol/ L 10/11 5:36 AM CDT [facility] Not Available Not Available 10/19/2024 14:09:30 10/12/19 25 10/11/2024 Basic metab olic 2000 panel - Serum or Plasm a potassium [moles/volum e] in serum or plasma 5.1 mmol/ L low: 3.5mmo l/Lhig h: 5.1mmo l/L POTAS SIUM 5.1 3.5 - 5.1 mmol/ L 10/11 5:36 AM [facility] Not Available Not Available 10/19/2024 14:09:30 10/12/19 25 10/11/2024 Basic metab olic 1999 panel - Serum or Plasm a chloride [moles/volum e] in serum or plasma 109 mmol/ L low: 98mmol /Lhigh : 107mmo l/L high CHLOR ISABEL 109 (H) 98 - 107 mmol/ L 10/11 5:36 AM CD[facility] Not Available Not Available 10/19/2024 14:09:30 10/12/19 25 10/11/2024 Basic metab olic 1999 panel - Serum or Plasm a carbon dioxide, total [moles/volum e] in serum or plasma 23 mmol/ L low: 22mmol /Lhigh : 30mmol /L CO2, VENOU S 23 22 - 30 mmol/ L 10/11 5:36 AM CD[facility] Not Available Not Available 10/19/2024 14:09:30 10/12/19 25 10/11/2024 Basic metab olic 1999 panel - Serum or Plasm a anion gap in serum or plasma 10.1 mmol/ L high: 18mmol /L ANION GAP 10.1 <18.0 mmol/ L 10/11 5:36 AM CDT [facility] Not Available Not Available 10/19/2024 14:09:30 10/12/19 25 10/11/2024 Basic metab olic 1999 panel - Serum or Plasm a glucose [mass/volume ] in serum or plasma 87 mg/dL low: 70mg/d Lhigh: 99mg/d L GLUCO SE 87 70 - 99 mg/dL 10/11 5:36 AM CDT [facility] Not Available Not Available 10/19/2024 14:09:30 10/12/19 25 10/11/2024 Basic metab olic 1999 panel - Serum or Plasm a urea nitrogen [mass/volume ] in serum or plasma 28 mg/dL low: 10mg/d Lhigh: 20mg/d L high BUN 28 (H) 10 - 20 mg/dL 10/11 5:36 AM CDT [facility] Not Available Not Available 10/19/2024 14:09:30 10/12/19 25 10/11/2024 Basic metab olic 1999 panel - Serum or Plasm a creatinine [mass/volume ] in serum or plasma 1.19 mg/dL low: 0.6mg/ dLhigh : 1mg/dL high CREAT ININE , BLOOD 1.19 (H) 0.60 - 1.00 mg/dL 10/11 5:36 AM [facility]T [facility] [employer] [facility] Not Available Not Available 10/19/2024 14:09:30 10/12/19 25 10/11/2024 Basic [employer] ic 1999 panel - Serum or Plasm a urea nitrogen/cre atinine [mass ratio] in serum or plasma 24 text: 12 - 20 ratio high BUN/C REATI NINE RATIO 24 (H) 12 - 20 ratio 10/11 5:36 AM [facility]T [facility] [employer] [facility] Not Available Not Available 10/19/2024 14:09:30 10/12/19 25 10/11/2024 Basic [employer] olic 1999 panel - Serum or Plasm a calcium [mass/volume ] in serum or plasma 8.6 mg/dL low: 8.7mg/ dLhigh : 10.5mg /dL low CALCI UM 8.6 (L) 8.7 - 10.5 mg/dL 10/11 5:36 AM CDT [facility] [employer] [facility] Not Available Not Available 10/19/2024 14:09:30 10/12/19 25 10/11/2024 Basic [employer] olic 2000 panel - Serum or Plasm a glomerular filtration rate/1.73 sq M.predicted among non-blacks [volume rate/area] in serum, plasma or blood by creatinine-b ased formula (MDRD) 51 low: 60 low GFR, ESTIM ATED 51 (L) >=60 10/11 5:36 AM CDT [facility] [employer] [facility] Not Available Not Available 10/19/2024 14:09:30 10/12/19 25 10/11/2024 Basic metab olic 2000 panel - Serum or Plasm a glomerular filtration rate/1.73 sq M.predicted among blacks [volume rate/area] in serum, plasma or blood by creatinine-b ased formula (MDRD) 56 low: 60 low GFR, EST. AFRIC AN 56 (L) >=60 10/11 5:36 AM CDT [facility] [employer] [facility] Not Available Not Available 10/19/2024 14:09:30 10/12/19 25 10/11/2024 Basic metab olic 2000 panel - Serum or Plasm a glomerular filtration rate/1.73 sq M.predicted among non-blacks [volume rate/area] in serum, plasma or blood by creatinine-b ased formula (MDRD) 46 low: 60 low GFR, EST. NONAF RICAN 46 (L) >=60 10/11 5:36 AM CDT [facility] [employer] [facility] Not Available Not Available 10/19/2024 14:09:30 10/12/19 25 10/11/2024 Basic metab olic 2000 panel - Serum or Plasm a interpretati on and review of laboratory results Abnorm al Not Available Not Available 14:09:30 10/24/19 25 10/23/2024 Proca lcito fátima [Mass /volu me] in Serum or Plasm a procalcitoni n [mass/volume ] in serum or plasma 0.05 NG/mL high: 0.25NG /mL PROCA LCITO FÁTIMA 0.05 <=0.2 5 ng/mL 10/23 11:43 AM CDT [facility] [employer] [facility] Not Available Not Available 10/27/2024 13:50:05 10/24/19 25 10/23/2024 Proca lcito fátima [Mass /volu me] in Serum or Plasm a Unknown Analyte If the differ ential diagno sis is system ic bacter ial infect ion, sepsis , or septic shock use these guidel brad: <=0.25 ng/mL: Low risk for system ic bacter ial infect ion, sepsis , or septic shock. Locali zed bacter ial infect ion possib le: Sugges t re-macario ting in 24 hours >=0.50 ng/mL: System ic bacter ial infect ion, sepsis , or septic shock are possib le: sugges t re-macario ting in approx imatel y 24 hours. If the differ ential diagno sis is suspec joão lower respir atory tract infect ion (LRTI) or there is confir med LRTI: < 0.1 ng/mL: Sugges ts absenc e of bacter ial infect ion. Antibi otic therap y strong ly discou raged. 0.1-0. 25 ng/mL: Sugges ts bacter ial infect ion is unlike ly. Antibi otic therap y discou raged. 0.26-0 .5 ng/mL: Sugges ts possib le bacter ial infect ion. Antibi otic therap y encour aged. > 0.5 ng/mL: Sugges ts bacter ial infect ion. Antibi otic therap y strong ly encour aged If the diffe renti al diagn osis is syste margaux bacte rial infec tion, sepsi s, or septi c shock use these guide lines : <=0.2 5 ng/mL : Low risk for syste margaux bacte rial infec tion, sepsi s, or septi c shock . Local ized bacte rial infec tion possi ble: Sugge st re-te sting in 24 hours >=0.5 0 ng/mL : Syste margaux bacte rial infec tion, sepsi s, or septi c shock are possi ble: sugge st re-te sting in appro ximat mansoor 24 hours . If the diffe renti al diagn osis is suspe cted lower respi rator y tract infec tion (LRTI ) or there is confi rmed LRTI: < 0.1 ng/mL : Sugge sts absen ce of bacte rial infec tion. Antib iotic thera py stron gly disco urage d. 0.1-0 .25 ng/mL : Sugge sts bacte rial infec tion is unlik mansoor. Antib iotic thera py disco urage d. 0.26- 0.5 ng/mL : Sugge sts possi ble bacte rial infec tion. Antib iotic thera py encou raged . > 0.5 ng/mL : Sugge sts bacte rial infec tion. Antib iotic thera py stron gly encou raged Not Available Not Available 10/27/2024 13:50:05 10/24/19 25 10/23/2024 Proca lcito fátima [Mass /volu me] in Serum or Plasm a interpretati on and review of laboratory results Normal Not Available Not Available 10/01 13:50:05 10/24/19 25 10/23/2024 Influ bryanna virus A and B and SARS- CoV-2 (COVI D-19) and Respi rator y syncy tial virus RNA panel - Respi rator y syste m speci men by IWONA with probe detec tion influenza virus A RNA [presence] in upper respiratory specimen by IWONA with probe detection Negati ve text: negati ve, error FLU A Negat tommy Negat tommy, Error 10/23 1:09 AM CDT [facility] Not Available Not Available 10/23/2024 12:13:15 10/24/19 25 10/23/2024 Influ bryanna virus A and B and SARS- CoV-2 (COVI D-19) and Respi rator y syncy tial virus RNA panel - Respi rator y syste m speci men by IWONA with probe detec tion influenza virus B RNA [presence] in upper respiratory specimen by IWONA with probe detection Negati ve text: negati ve FLU B Negat tommy Negat tommy 10/23 1:09 AM CDT [facility] Not Available Not Available 10/23/2024 12:13:15 10/24/19 25 10/23/2024 Influ bryanna virus A and B and SARS- CoV-2 (COVI D-19) and Respi rator y syncy tial virus RNA panel - Respi rator y syste m speci men by IWONA with probe detec tion respiratory syncytial virus RNA [presence] in respiratory system specimen by IWONA with probe detection Negati ve text: negati ve RESP SYNC VIRUS Negat tommy Negat tommy 10/23 1:09 AM CDT [facility] Not Available Not Available 10/23/2024 12:13:15 10/24/1910/23/2024 Influ bryanna virus A and B and SARS- CoV-2 (COVI D-19) and Respi rator y syncy tial virus RNA panel - Respi rator y syste m speci men by IWONA with probe detec tion sars-cov-2 (covid-19) N gene [presence] in specimen by IWONA with probe detection NOT DETECT ED text: (refer ence range for this test IS not detect ed) SARSC OV2 NOT DETEC JOÃO (Refe rence Range for this test is Not Detec joão) 10/23 1:09 AM CDT [facility] Not Available Not Available 10/23/2024 12:13:15 10/24/19 25 10/23/2024 Influ bryanna virus A and B and SARS- CoV-2 (COVI D-19) and Respi rator y syncy tial virus RNA panel - Respi rator y syste m speci men by IWONA with probe detec tion interpretati on and review of laboratory results Normal Not Available Not Available 10/01 12:13:15 10/24/19 25 10/23/2024 Gas panel - Arter ial blood oxygen gas flow oxygen delivery system 15L High Flow Cannul a O2 STATU S 15L High Flow Cannu la 10/23 12:10 AM CDT [facility] Not Available Not Available 10/23/2024 12:13:15 10/24/19 25 10/23/2024 Gas panel - Arter ial blood pH of arterial blood 7.33 low: 7.35hi gh: 7.45 low PH ARTER IAL 7.33 (L) 7.35 - 7.45 10/23 12:10 AM CDT [facility] Not Available Not Available 10/23/2024 12:13:15 10/24/1910/23/2024 Gas panel - Arter ial blood carbon dioxide [partial pressure] in arterial blood 54 text: 35 - 45 mmHg high PC02 (SKY RIAL) 54 (H) 35 - 45 mmHg 10/23 12:10 AM CD[facility] Not Available Not Available 10/23/2024 12:13:15 10/24/1910/23/2024 Gas panel - Arter ial blood oxygen [partial pressure] in arterial blood 61 text: 75 - 100 mmHg low PO2 (SKY RIAL) 61 (L) 75 - 100 mmHg 10/23 12:10 AM CD[facility] Not Available Not Available 10/23/2024 12:13:15 10/24/1910/23/2024 Gas panel - Arter ial blood oxygen saturation in arterial blood 86 % low: 94%hig h: 100% low O2 SAT ART, MEASU RED 86 (L) 94 - 100 % 10/23 12:10 AM CDT [facility] Not Available Not Available 10/23/2024 12:13:15 10/24/1910/23/2024 Gas panel - Arter ial blood base arterial 2.2 mmol/ L low: -2mmol /Lhigh : 2mmol/ L high BASE ARTER IAL 2.2 (H) -2.0 - 2.0 mmol/ L 10/23 12:10 AM CDT [facility] Not Available Not Available 10/23/2024 12:13:15 10/24/19 25 10/23/2024 Gas panel - Arter ial blood bicarbonate [moles/volum e] in blood 28.6 mmol/ L low: 22mmol /Lhigh : 26mmol /L high BICAR BONAT E 28.6 (H) 22.0 - 26.0 mmol/ L 10/23 12:10 AM CDT [facility] Not Available Not Available 10/23/2024 12:13:15 10/24/19 25 10/23/2024 Gas panel - Arter ial blood arterial patency wrist artery --pre arterial puncture Non-Ra dial Site LULU 'S TEST RESUL TS Non-R adial Site 10/23 12:10 AM CDT [facility] Not Available Not Available 10/23/2024 12:13:15 10/24/19 25 10/23/2024 Gas panel - Arter ial blood carboxyhemog lobin/hemogl obin.total in blood 1 % low: 0%high : 5% CARBO XYHEM OGLOB IN 1.0 0.0 - 5.0 % 10/23 12:10 AM CDT [facility] Not Available Not Available 10/23/2024 12:13:15 10/24/19 25 10/23/2024 Gas panel - Arter ial blood methemoglobi n/hemoglobin .total in blood 0.5 % low: 0%high : 1.5% METHE MOGLO BIN 0.5 0.0 - 1.5 % 10/23 12:10 AM CDT [facility] Not Available Not Available 10/23/2024 12:13:15 10/24/19 25 10/23/2024 Gas panel - Arter ial blood interpretati on and review of laboratory results Abnorm al Not Available Not Available 12:13:15 10/24/19 25 10/28/2024 Bacte kamilah ident ified in Blood by Cultu re bacteria identified in blood by culture NO GROWTH WITHIN 5 DAYS, FINAL RESULT CULTU RE RESUL TS NO GROWT H WITHI N 5 DAYS, FINAL RESUL T 10/28 1:00 AM CDT [facility] Not Available Not Available 11/01/2024 09:41:37 10/24/19 25 10/23/2024 CBC W Auto Diffe renti al panel - Blood leukocytes [#/volume] in blood by automated count 10.48 text: 4.00 - 12.00 10(3)/ mcL WBC 10.48 4.00 - 12.00 10(3) /mcL 10/23 12:09 AM [facility] Not Available Not Available 10/23/2024 12:13:15 10/24/19 25 10/23/2024 CBC W Auto Diffe renti al panel - Blood erythrocytes [#/volume] in blood by automated count 4.36 text: 3.80 - 5.30 10(6)/ mcL RBC 4.36 3.80 - 5.30 10(6) /mcL 10/23 12:09 AM [facility] Not Available Not Available 10/23/2024 12:13:15 10/24/1910/23/2024 CBC W Auto Diffe renti al panel - Blood hemoglobin [mass/volume ] in blood 12.3 g/dL low: 12g/dL high: 15.8g/ dL HEMOG LOBIN (HGB) 12.3 12.0 - 15.8 g/dL 10/23 12:09 AM [facility] Not Available Not Available 10/23/2024 12:13:15 10/24/1910/23/2024 CBC W Auto Diffe renti al panel - Blood hematocrit [volume fraction] of blood by automated count 40 % low: 36%hig h: 47% HEMAT OCRIT (HCT) 40.0 36.0 - 47.0 % 10/23 12:09 AM [facility] Not Available Not Available 10/23/2024 12:13:15 10/24/19 25 10/23/2024 CBC W Auto Diffe renti al panel - Blood MCV [entitic volume] by automated count 91.7 fL low: 82fLhi gh: 96fL MCV 91.7 82.0 - 96.0 fL 10/23 12:09 AM CD[facility] Not Available Not Available 10/23/2024 12:13:15 10/24/19 25 10/23/2024 CBC W Auto Diffe renti al panel - Blood MCH [entitic mass] by automated count 28.2 pg low: 26pghi gh: 34pg MCH 28.2 26.0 - 34.0 pg 10/23 12:09 AM [facility] Not Available Not Available 10/23/2024 12:13:15 10/24/19 25 10/23/2024 CBC W Auto Diffe renti al panel - Blood MCHC [mass/volume ] by automated count 30.8 g/dL low: 31g/dL high: 36g/dL low MCHC 30.8 (L) 31.0 - 36.0 g/dL 10/23 12:09 AM [facility] Not Available Not Available 10/23/2024 12:13:15 10/24/19 25 10/23/2024 CBC W Auto Diffe renti al panel - Blood platelets [#/volume] in blood 274 text: 140 - 440 10(3)/ mcL PLATE LET COUNT 274 140 - 440 10(3) /mcL 10/23 12:09 AM CDT [facility] Not Available Not Available 10/23/2024 12:13:15 10/24/19 25 10/23/2024 CBC W Auto Diffe renti al panel - Blood erythrocyte distribution width [ratio] by automated count 15.3 % low: 11.8%h igh: 15.5% RDW 15.3 11.8 - 15.5 % 10/23 12:09 AM CDT [facility] Not Available Not Available 10/23/2024 12:13:15 10/24/19 25 10/23/2024 CBC W Auto Diffe renti al panel - Blood platelet mean volume [entitic volume] in blood by automated count 9.7 fL low: 9.7fLh igh: 12.4fL MPV 9.7 9.7 - 12.4 fL 10/23 12:09 AM [facility] Not Available Not Available 10/23/2024 12:13:15 10/24/19 25 10/23/2024 CBC W Auto Diffe renti al panel - Blood neutrophils/ 100 leukocytes in blood by automated count 87 % low: 47%hig h: 73% high NEUTR OPHIL S 87.0 (H) 47.0 - 73.0 % 10/23 12:09 AM CDT [facility] Not Available Not Available 10/23/2024 12:13:15 10/24/19 25 10/23/2024 CBC W Auto Diffe renti al panel - Blood lymphocytes/ 100 leukocytes in blood by automated count 6.3 % low: 18%hig h: 42% low LYMPH OCYTE S 6.3 (L) 18.0 - 42.0 % 10/23 12:09 AM CDT [facility] Not Available Not Available 10/23/2024 12:13:15 10/24/19 25 10/23/2024 CBC W Auto Diffe renti al panel - Blood monocytes/10 0 leukocytes in blood by automated count 5.6 % low: 4%high : 12% MONOC YTES 5.6 4.0 - 12.0 % 10/23 12:09 AM CDT [facility] Not Available Not Available 10/23/2024 12:13:15 10/24/19 25 10/23/2024 CBC W Auto Diffe renti al panel - Blood eosinophils/ 100 leukocytes in blood by automated count 1 % low: 0%high : 5% EOSIN OPHIL S 1.0 0.0 - 5.0 % 10/23 12:09 AM CDT [facility] Not Available Not Available 10/23/2024 12:13:15 10/24/19 25 10/23/2024 CBC W Auto Diffe renti al panel - Blood basophils/10 0 leukocytes in blood by automated count 0.1 % low: 0%high : 1% BASOP HILS 0.1 0.0 - 1.0 % 10/23 12:09 AM CDT [facility] Not Available Not Available 10/23/2024 12:13:15 10/24/19 25 10/23/2024 CBC W Auto Diffe renti al panel - Blood neutrophils [#/volume] in blood by automated count 9.12 text: 1.60 - 7.70 10(3)/ mcL high [facility] [place] NEUTR OPHIL S 9.12 (H) 1.60 - 7.70 10(3) /mcL 10/23 12:09 AM [facility] Not [facility] Not Available 10/23/2024 12:13:15 10/24/19 25 10/23/2024 CBC W Auto Diffe renti al panel - Blood lymphocytes [#/volume] in blood by automated count 0.66 text: 1.30 - 3.20 10(3)/ mcL low [facility] [place] LYMPH OCYTE S 0.66 (L) 1.30 - 3.20 10(3) /mcL 10/23 12:09 AM [facility] Not Available Not Available 10/23/2024 12:13:15 10/24/19 25 10/23/2024 CBC W Auto Diffe renti al panel - Blood monocytes [#/volume] in blood by automated count 0.59 text: 0.20 - 1.00 10(3)/ mcL [facility] [place] MONOC YTES 0.59 0.20 - 1.00 10(3) /mcL 10/23 12:09 AM [facility] Not Available Not Available 10/23/2024 12:13:15 10/24/19 25 10/23/2024 CBC W Auto Diffe renti al panel - Blood eosinophils [#/volume] in blood by automated count 0.1 text: 0.00 - 0.40 10(3)/ mcL [facility] [place] EOSIN OPHIL 0.10 0.00 - 0.40 10(3) /mcL 10/23 12:09 AM [facility] Not Available Not Available 10/23/2024 12:13:15 10/24/19 25 10/23/2024 CBC W Auto Diffe renti al panel - Blood basophils [#/volume] in blood by automated count 0.01 text: 0.00 - 0.10 10(3)/ mcL [facility] [place] BASOP HILS 0.01 0.00 - 0.10 10(3) /mcL 10/23 12:09 AM [facility] Not Available Not Available 10/23/2024 12:13:15 10/24/19 25 10/23/2024 CBC W Auto Diffe renti al panel - Blood nucleated erythrocytes /100 leukocytes [ratio] in blood 0 NRBC PER 100 WBC 0 10/23 12:09 AM [facility] Available Not Available 10/23/2024 12:13:15 10/24/19 25 10/23/2024 CBC W Auto Diffe renti al panel - Blood interpretati on and review of laboratory results Abnorm al Not Available Not Available 12:13:15 10/24/1910/23/2024 Lacta te [Mole s/vol ume] in Serum or Plasm a lactate [moles/volum e] in serum or plasma 1.3 mmol/ L low: 0.7mmo l/Lhig h: 2mmol/ L LACTI C ACID 1.3 0.7 - 2.0 mmol/ L 10/23 12:25 AM CDT [facility] Not Available Not Available 10/23/2024 12:13:15 10/24/19 25 10/23/2024 Lacta te [Mole s/vol ume] in Serum or Plasm a interpretati on and review of laboratory results Normal Not Available Not Available 10/01 12:13:15 10/24/19 25 10/23/2024 Compr ehens tommy metab olic 2000 panel - Serum or Plasm a sodium [moles/volum e] in serum or plasma 138 mmol/ L low: 136mmo l/Lhig h: 145mmo l/L SODIU M 138 136 - 145 mmol/ L 10/23 12:28 AM CDT [facility] Not Available Not Available 10/23/2024 12:13:15 10/24/19 25 10/23/2024 Compr ehens tommy metab olic 2000 panel - Serum or Plasm a potassium [moles/volum e] in serum or plasma 4.1 mmol/ L low: 3.5mmo l/Lhig h: 5.1mmo l/L POTAS SIUM 4.1 3.5 - 5.1 mmol/ L 10/23 12:28 AM CDT [facility] Not Available Not Available 10/23/2024 12:13:15 10/24/19 25 10/23/2024 Compr ehens tommy metab olic 1999 panel - Serum or Plasm a chloride [moles/volum e] in serum or plasma 103 mmol/ L low: 98mmol /Lhigh : 107mmo l/L CHLOR ISABEL 103 98 - 107 mmol/ L 10/23 12:28 AM CDT [facility] Not Available Not Available 10/23/2024 12:13:15 10/24/19 25 10/23/2024 Compr ehens tommy metab olic 1999 panel - Serum or Plasm a carbon dioxide, total [moles/volum e] in serum or plasma 26 mmol/ L low: 22mmol /Lhigh : 30mmol /L CO2, VENOU S 26 22 - 30 mmol/ L 10/23 12:28 AM CDT [facility] Not Available Not Available 10/23/2024 12:13:15 10/24/19 25 10/23/2024 Compr ehens tommy metab olic 1999 panel - Serum or Plasm a anion gap in serum or plasma 13.1 mmol/ L high: 18mmol /L ANION GAP 13.1 <18.0 mmol/ L 10/23 12:28 AM CDT [facility] Not Available Not Available 10/23/2024 12:13:15 10/24/19 25 10/23/2024 Compr ehens tommy metab olic 1999 panel - Serum or Plasm a glucose [mass/volume ] in serum or plasma 123 mg/dL low: 70mg/d Lhigh: 99mg/d L high GLUCO SE 123 (H) 70 - 99 mg/dL 10/23 12:28 AM CDT [facility] Not Available Not Available 10/23/2024 12:13:15 10/24/19 25 10/23/2024 Compr ehens tommy metab olic 1999 panel - Serum or Plasm a urea nitrogen [mass/volume ] in serum or plasma 9 mg/dL low: 10mg/d Lhigh: 20mg/d L low BUN 9 (L) 10 - 20 mg/dL 10/23 12:28 AM CDT [facility] Not Available Not Available 10/23/2024 12:13:15 10/24/19 25 10/23/2024 Compr ehens tommy metab olic 2000 panel - Serum or Plasm a creatinine [mass/volume ] in serum or plasma 1.13 mg/dL low: 0.6mg/ dLhigh : 1mg/dL high CREAT ININE , BLOOD 1.13 (H) 0.60 - 1.00 mg/dL 10/23 12:28 AM CDT [facility] Not Available Not Available 10/23/2024 12:13:15 10/24/19 25 10/23/2024 Compr ehens tommy metab olic 2000 panel - Serum or Plasm a urea nitrogen/cre atinine [mass ratio] in serum or plasma 8 text: 12 - 20 ratio low BUN/C REATI NINE RATIO 8 (L) 12 - 20 ratio 10/23 12:28 AM CDT [facility] Not Available Not Available 10/23/2024 12:13:15 10/24/19 25 10/23/2024 Compr ehens tommy metab olic 2000 panel - Serum or Plasm a protein [mass/volume ] in serum or plasma 7.6 g/dL low: 6g/dLh igh: 8g/dL TOTAL PROTE IN 7.6 6.0 - 8.0 g/dL 10/23 12:28 AM CDT [facility] Not Available Not Available 10/23/2024 12:13:15 10/24/19 25 10/23/2024 Compr ehens tommy metab olic 2000 panel - Serum or Plasm a albumin [mass/volume ] in serum or plasma 4.2 g/dL low: 3.5g/d Lhigh: 5g/dL ALBUM IN 4.2 3.5 - 5.0 g/dL 10/23 12:28 AM CDT [facility] Not Available Not Available 10/23/2024 12:13:15 10/24/19 25 10/23/2024 Compr ehens tommy metab olic 1999 panel - Serum or Plasm a albumin/glob ulin [mass ratio] in serum or plasma 1.2 low: 1high: 2.2 A/G RATIO 1.2 1.0 - 2.2 10/23 12:28 AM CDT [facility] Not Available Not Available 10/23/2024 12:13:15 10/24/19 25 10/23/2024 Compr ehens tommy metab olic 2000 panel - Serum or Plasm a calcium [mass/volume ] in serum or plasma 9.6 mg/dL low: 8.7mg/ dLhigh : 10.5mg /dL CALCI UM 9.6 8.7 - 10.5 mg/dL 10/23 12:28 AM CDT [facility] Not Available Not Available 10/23/2024 12:13:15 10/24/19 25 10/23/2024 Compr Nephrosens tommy metab olic 2000 panel - Serum or Plasm a bilirubin.to godwin [mass/volume ] in serum or plasma 0.4 mg/dL low: 0.2mg/ dLhigh : 1.2mg/ dL T BILI 0.4 0.2 - 1.2 mg/dL 10/23 12:28 AM CDT [facility] Not Available Not Available 10/23/2024 12:13:15 10/24/19 25 10/23/2024 Compr ehens tommy metab olic 2000 panel - Serum or Plasm a aspartate aminotransfe rase [enzymatic activity/vol ume] in serum or plasma 20 U/L high: 43U/L SGOT (AST) 20 <43 U/L 10/23 12:28 AM CDT [facility] Not Available Not Available 10/23/2024 12:13:15 10/24/19 25 10/23/2024 Compr ehens tommy metab olic 1999 panel - Serum or Plasm a alanine aminotransfe rase [enzymatic activity/vol ume] in serum or plasma 17 U/L high: 56U/L SGPT (ALT) 17 <56 U/L 10/23 12:28 AM [facility] Not Available Not Available 10/23/2024 12:13:15 10/24/19 25 10/23/2024 Compr ehens tommy metab olic 1999 panel - Serum or Plasm a alkaline phosphatase [enzymatic activity/vol ume] in serum or plasma 148 U/L low: 40U/Lh igh: 150U/L ALKAL INE PHOSP HATAS E 148 40 - 150 U/L 10/23 12:28 AM CDT [facility] Not Available Not Available 10/23/2024 12:13:15 10/24/19 25 10/23/2024 Compr ehens tommy metab olic 1999 panel - Serum or Plasm a glomerular filtration rate/1.73 sq M.predicted [volume rate/area] in serum, plasma or blood by creatinine-b ased formula (CKD-epi 2020) 55 low: 60 low GFR, ESTIM ATED 55 (L) >=60 10/23 12:28 AM CDT [facility] Not Available Not Available 10/23/2024 12:13:15 10/24/19 25 10/23/2024 Compr ehens tommy metab olic 1999 panel - Serum or Plasm a glomerular filtration rate/1.73 sq M.predicted among blacks [volume rate/area] in serum, plasma or blood by creatinine-b ased formula (MDRD) 59 low: 60 low GFR, EST. AFRIC AN 59 (L) >=60 10/23 12:28 AM CDT [facility] Not Available Not Available 10/23/2024 12:13:15 10/24/19 25 10/23/2024 Compr ehens tommy metab olic 2000 panel - Serum or Plasm a glomerular filtration rate/1.73 sq M.predicted among non-blacks [volume rate/area] in serum, plasma or blood by creatinine-b ased formula (MDRD) 49 low: 60 low GFR, EST. NONAF RICAN 49 (L) >=60 10/23 12:28 AM CDT [facility] Not Available Not Available 10/23/2024 12:13:15 10/24/1910/23/2024 Compr ehens tommy metab olic 1999 panel - Serum or Plasm a interpretati on and review of laboratory results Abnorm al Not Available Not Available 12:13:15 10/27/1910/26/2024 CBC W Auto Diffe renti al panel - Blood leukocytes [#/volume] in blood by automated count 11.84 text: 4.00 - 12.00 10(3)/ mcL WBC 11.84 4.00 - 12.00 10(3) /mcL 10/26 8:05 PM CDT [facility] Not Available Not Available 10/27/2024 13:50:12 10/27/19 25 10/26/2024 CBC W Auto Diffe renti al panel - Blood erythrocytes [#/volume] in blood by automated count 4.36 text: 3.80 - 5.30 10(6)/ mcL RBC 4.36 3.80 - 5.30 10(6) /mcL 10/26 8:05 PM CDT [facility] Not Available Not Available 10/27/2024 13:50:12 10/27/19 25 10/26/2024 CBC W Auto Diffe renti al panel - Blood hemoglobin [mass/volume ] in blood 12.1 g/dL low: 12g/dL high: 15.8g/ dL HEMOG LOBIN (HGB) 12.1 12.0 - 15.8 g/dL 10/26 8:05 PM CDT [facility] Not Available Not Available 10/27/2024 13:50:12 10/27/19 25 10/26/2024 CBC W Auto Diffe renti al panel - Blood hematocrit [volume fraction] of blood by automated count 40.2 % low: 36%hig h: 47% HEMAT OCRIT (HCT) 40.2 36.0 - 47.0 % 10/26 8:05 PM CD[facility] Not Available Not Available 10/27/2024 13:50:12 10/27/19 25 10/26/2024 CBC W Auto Diffe renti al panel - Blood MCV [entitic volume] by automated count 92.2 fL low: 82fLhi gh: 96fL MCV 92.2 82.0 - 96.0 fL 10/26 8:05 PM CDT [facility] Not Available Not Available 10/27/2024 13:50:12 10/27/19 25 10/26/2024 CBC W Auto Diffe renti al panel - Blood MCH [entitic mass] by automated count 27.8 pg low: 26pghi gh: 34pg MCH 27.8 26.0 - 34.0 pg 10/26 8:05 PM CDT [facility] Not Available Not Available 10/27/2024 13:50:12 10/27/19 25 10/26/2024 CBC W Auto Diffe renti al panel - Blood MCHC [mass/volume ] by automated count 30.1 g/dL low: 31g/dL high: 36g/dL low MCHC 30.1 (L) 31.0 - 36.0 g/dL 10/26 8:05 PM CDT [facility] Not Available Not Available 10/27/2024 13:50:12 10/27/19 25 10/26/2024 CBC W Auto Diffe renti al panel - Blood platelets [#/volume] in blood 296 text: 140 - 440 10(3)/ mcL PLATE LET COUNT 296 140 - 440 10(3) /mcL 10/26 8:05 PM CDT [facility] Not Available Not Available 10/27/2024 13:50:12 03/27/10/26/2024 CBC W Auto Diffe renti al panel - Blood erythrocyte distribution width [ratio] by automated count 16 % low: 11.8%h igh: 15.5% high RDW 16.0 (H) 11.8 - 15.5 % 10/26 8:05 PM CDT [facility] Not Available Not Available 10/27/2024 13:50:12 10/27/19 25 10/26/2024 CBC W Auto Diffe renti al panel - Blood platelet mean volume [entitic volume] in blood by automated count 10 fL low: 9.7fLh igh: 12.4fL MPV 10.0 9.7 - 12.4 fL 10/26 8:05 PM CDT [facility] Not Available Not Available 10/27/2024 13:50:12 10/27/19 25 10/26/2024 CBC W Auto Diffe renti al panel - Blood neutrophils/ 100 leukocytes in blood by automated count 91.6 % low: 47%hig h: 73% high NEUTR OPHIL S 91.6 (H) 47.0 - 73.0 % 10/26 8:05 PM CDT [facility] Not Available Not Available 10/27/2024 13:50:12 10/27/19 25 10/26/2024 CBC W Auto Diffe renti al panel - Blood lymphocytes/ 100 leukocytes in blood by automated count 4.4 % low: 18%hig h: 42% low LYMPH OCYTE S 4.4 (L) 18.0 - 42.0 % 10/26 8:05 PM CDT [facility] Not Available Not Available 10/27/2024 13:50:12 10/27/19 25 10/26/2024 CBC W Auto Diffe renti al panel - Blood monocytes/10 0 leukocytes in blood by automated count 3.8 % low: 4%high : 12% low MONOC YTES 3.8 (L) 4.0 - 12.0 % 10/26 8:05 PM CDT [facility] Not Available Not Available 10/27/2024 13:50:12 10/27/19 25 10/26/2024 CBC W Auto Diffe renti al panel - Blood eosinophils/ 100 leukocytes in blood by automated count 0 % low: 0%high : 5% EOSIN OPHIL S 0.0 0.0 - 5.0 % 10/26 8:05 PM CD[facility] Not Available Not Available 10/27/2024 13:50:12 10/27/19 25 10/26/2024 CBC W Auto Diffe renti al panel - Blood basophils/10 0 leukocytes in blood by automated count 0.2 % low: 0%high : 1% BASOP HILS 0.2 0.0 - 1.0 % 10/26 8:05 PM CDT [facility] Not Available Not Available 10/27/2024 13:50:12 10/27/19 25 10/26/2024 CBC W Auto Diffe renti al panel - Blood neutrophils [#/volume] in blood by automated count 10.85 text: 1.60 - 7.70 10(3)/ mcL high ABSOL [place] NEUTR OPHIL S 10.85 (H) 1.60 - 7.70 10(3) /mcL 10/26 8:05 PM CDT [facility] Not Available Not Available 10/27/2024 13:50:12 10/27/19 25 10/26/2024 CBC W Auto Diffe renti al panel - Blood lymphocytes [#/volume] in blood by automated count 0.52 text: 1.30 - 3.20 10(3)/ mcL low ABSOL [place] LYMPH OCYTE S 0.52 (L) 1.30 - 3.20 10(3) /mcL 10/26 8:05 PM CDT [facility] Not Available Not Available 10/27/2024 13:50:12 10/27/19 25 10/26/2024 CBC W Auto Diffe renti al panel - Blood monocytes [#/volume] in blood by automated count 0.45 text: 0.20 - 1.00 10(3)/ mcL ABSOL [place] MONOC YTES 0.45 0.20 - 1.00 10(3) /mcL 10/26 8:05 PM CDT [facility] Not Available Not Available 10/27/2024 13:50:12 10/27/19 25 10/26/2024 CBC W Auto Diffe renti al panel - Blood eosinophils [#/volume] in blood by automated count 0 text: 0.00 - 0.40 10(3)/ mcL ABSOL [place] EOSIN OPHIL 0.00 0.00 - 0.40 10(3) /mcL 10/26 8:05 PM CDT [facility] Not Available Not Available 10/27/2024 13:50:12 10/27/19 25 10/26/2024 CBC W Auto Diffe renti al panel - Blood basophils [#/volume] in blood by automated count 0.02 text: 0.00 - 0.10 10(3)/ mcL ABSOL [place] BASOP HILS 0.02 0.00 - 0.10 10(3) /mcL 10/26 8:05 PM CDT [facility] Not Available Not Available 10/27/2024 13:50:12 10/27/19 25 10/26/2024 CBC W Auto Diffe renti al panel - Blood nucleated erythrocytes /100 leukocytes [ratio] in blood 0 NRBC PER 100 WBC 0 10/26 8:05 PM CDT [facility] Not Available Not Available 10/27/2024 13:50:12 10/27/19 25 10/26/2024 CBC W Auto Diffe renti al panel - Blood sfdc architect review of results Yes RESUL TS ARE CONSI STENT WITH PERIP HERAL SMEAR REVIE W Yes 10/26 8:05 PM CDT [facility] Not Available Not Available 10/27/2024 13:50:12 10/27/19 25 10/26/2024 CBC W Auto Diffe renti al panel - Blood erythrocytes [morphology] in blood by automated count Yes RBC MORPH OLOGY CONSI STENT WITH INDIC ES Yes 10/26 8:05 PM CDT [facility] Not Available Not Available 10/27/2024 13:50:12 10/27/19 25 10/26/2024 CBC W Auto Diffe renti al panel - Blood interpretati on and review of laboratory results Abnorm al Not Available Not Available 13:50:12 10/27/19 25 10/26/2024 Magne sium [Mass /volu me] in Serum or Plasm a magnesium [mass/volume ] in serum or plasma 1.9 mg/dL low: 1.6mg/ dLhigh : 2.6mg/ dL MAGNE SIUM 1.9 1.6 - 2.6 mg/dL 10/26 7:52 PM CDT [facility] Not Available Not Available 10/27/2024 13:50:12 10/27/19 25 10/26/2024 Magne sium [Mass /volu me] in Serum or Plasm a interpretati on and review of laboratory results Normal Not Available Not Available 10/01 13:50:12 10/27/19 25 10/26/2024 Compr ehens tommy metab olic 1999 panel - Serum or Plasm a sodium [moles/volum e] in serum or plasma 140 mmol/ L low: 136mmo l/Lhig h: 145mmo l/L SODIU M 140 136 - 145 mmol/ L 10/26 7:52 PM CDT [facility] Not Available Not Available 10/27/2024 13:50:12 10/27/19 25 10/26/2024 Compr ehens tommy metab olic 1999 panel - Serum or Plasm a potassium [moles/volum e] in serum or plasma 4.5 mmol/ L low: 3.5mmo l/Lhig h: 5.1mmo l/L POTAS SIUM 4.5 3.5 - 5.1 mmol/ L 10/26 7:52 PM CDT [facility] Not Available Not Available 10/27/2024 13:50:12 10/27/19 25 10/26/2024 Compr ehens tommy metab olic 1999 panel - Serum or Plasm a chloride [moles/volum e] in serum or plasma 102 mmol/ L low: 98mmol /Lhigh : 107mmo l/L CHLOR ISABEL 102 98 - 107 mmol/ L 10/26 7:52 PM CDT [facility] Not Available Not Available 10/27/2024 13:50:12 10/27/19 25 10/26/2024 Compr ehens tommy metab olic 1999 panel - Serum or Plasm a carbon dioxide, total [moles/volum e] in serum or plasma 28 mmol/ L low: 22mmol /Lhigh : 30mmol /L CO2, VENOU S 28 22 - 30 mmol/ L 10/26 7:52 PM CDT [facility] Not Available Not Available 10/27/2024 13:50:12 10/27/19 25 10/26/2024 Compr ehens tommy metab olic 1999 panel - Serum or Plasm a anion gap in serum or plasma 14.5 mmol/ L high: 18mmol /L ANION GAP 14.5 <18.0 mmol/ L 10/26 7:52 PM CDT [facility] Not Available Not Available 10/27/2024 13:50:12 10/27/19 25 10/26/2024 Compr ehens tomym metab olic 1999 panel - Serum or Plasm a glucose [mass/volume ] in serum or plasma 172 mg/dL low: 70mg/d Lhigh: 99mg/d L high GLUCO SE 172 (H) 70 - 99 mg/dL 10/26 7:52 PM CDT [facility] Not Available Not Available 10/27/2024 13:50:12 10/27/19 25 10/26/2024 Compr ehens tommy metab olic 2000 panel - Serum or Plasm a urea nitrogen [mass/volume ] in serum or plasma 31 mg/dL low: 10mg/d Lhigh: 20mg/d L high BUN 31 (H) 10 - 20 mg/dL 10/26 7:52 PM CDT [facility] Not Available Not Available 10/27/2024 13:50:12 10/27/19 25 10/26/2024 Compr ehens tommy metab olic 1999 panel - Serum or Plasm a creatinine [mass/volume ] in serum or plasma 1.24 mg/dL low: 0.6mg/ dLhigh : 1mg/dL high CREAT ININE , BLOOD 1.24 (H) 0.60 - 1.00 mg/dL 10/26 7:52 PM CDT [facility] Not Available Not Available 10/27/2024 13:50:12 10/27/19 25 10/26/2024 Compr ehens tommy metab olic 1999 panel - Serum or Plasm a urea nitrogen/cre atinine [mass ratio] in serum or plasma 25 text: 12 - 20 ratio high BUN/C REATI NINE RATIO 25 (H) 12 - 20 ratio 10/26 7:52 PM CDT [facility] Not Available Not Available 10/27/2024 13:50:12 10/27/19 25 10/26/2024 Compr ehens tommy metab olic 1999 panel - Serum or Plasm a protein [mass/volume ] in serum or plasma 7.2 g/dL low: 6g/dLh igh: 8g/dL TOTAL PROTE IN 7.2 6.0 - 8.0 g/dL 10/26 7:52 PM CDT [facility] Not Available Not Available 10/27/2024 13:50:12 10/27/19 25 10/26/2024 Compr ehens tommy metab olic 1999 panel - Serum or Plasm a albumin [mass/volume ] in serum or plasma 4.1 g/dL low: 3.5g/d Lhigh: 5g/dL ALBUM IN 4.1 3.5 - 5.0 g/dL 10/26 7:52 PM CDT [facility] Not Available Not Available 10/27/2024 13:50:12 10/27/19 25 10/26/2024 Compr ehens tommy metab olic 2000 panel - Serum or Plasm a albumin/glob ulin [mass ratio] in serum or plasma 1.3 low: 1high: 2.2 A/G RATIO 1.3 1.0 - 2.2 10/26 7:52 PM CDT [facility] [employer] [facility] Not Available Not Available 10/27/2024 13:50:12 10/27/19 25 10/26/2024 Compr ehens tommy metab olic 1999 panel - Serum or Plasm a calcium [mass/volume ] in serum or plasma 9.3 mg/dL low: 8.7mg/ dLhigh : 10.5mg /dL CALCI UM 9.3 8.7 - 10.5 mg/dL 10/26 7:52 PM CDT [facility] [employer] [facility] Not Available Not Available 10/27/2024 13:50:12 10/27/1910/26/2024 Compr ens tommy metab ic 1999 panel - Serum or Plasm a bilirubin.to godwin [mass/volume ] in serum or plasma 0.3 mg/dL low: 0.2mg/ dLhigh : 1.2mg/ dL T BILI 0.3 0.2 - 1.2 mg/dL 10/26 7:52 PM CDT [facility] [employer] [facility] Not Available Not Available 10/27/2024 13:50:12 10/27/19 25 10/26/2024 Compr Nephrosens tommy metab olic 1999 panel - Serum or Plasm a aspartate aminotransfe rase [enzymatic activity/vol ume] in serum or plasma 13 U/L high: 43U/L SGOT (AST) 13 <43 U/L 10/26 7:52 PM CDT [facility] [employer] [facility] Not Available Not Available 10/27/2024 13:50:12 10/27/19 25 10/26/2024 Compr Nephrosens tommy metab olic 1999 panel - Serum or Plasm a alanine aminotransfe rase [enzymatic activity/vol ume] in serum or plasma 13 U/L high: 56U/L SGPT (ALT) 13 <56 U/L 10/26 7:52 PM [facility] [employer] [facility] Not Available Not Available 10/27/2024 13:50:12 10/27/19 25 10/26/2024 Compr Nephrosens tommy metab olic 1999 panel - Serum or Plasm a alkaline phosphatase [enzymatic activity/vol ume] in serum or plasma 116 U/L low: 40U/Lh igh: 150U/L ALKAL INE PHOSP HATAS E 116 40 - 150 U/L 10/26 7:52 PM CDT [facility] [employer] [facility] Not Available Not Available 10/27/2024 13:50:12 10/27/19 25 10/26/2024 Compr ehens tommy metab olic 1999 panel - Serum or Plasm a glomerular filtration rate/1.73 sq M.predicted [volume rate/area] in serum, plasma or blood by creatinine-b ased formula (CKD-epi 2020) 49 low: 60 low GFR, ESTIM ATED 49 (L) >=60 10/26 7:52 PM CDT [facility] [employer] [facility] Not Available Not Available 10/27/2024 13:50:12 10/27/19 25 10/26/2024 Compr Nephrosens tommy metab olic 1999 panel - Serum or Plasm a glomerular filtration rate/1.73 sq M.predicted among blacks [volume rate/area] in serum, plasma or blood by creatinine-b ased formula (MDRD) 53 low: 60 low GFR, EST. AFRIC AN 53 (L) >=60 10/26 7:52 PM CDT [facility] [employer] [facility] Not Available Not Available 10/27/2024 13:50:12 10/27/19 25 10/26/2024 Compr Nephrosens tommy metab olic 2000 panel - Serum or Plasm a glomerular filtration rate/1.73 sq M.predicted among non-blacks [volume rate/area] in serum, plasma or blood by creatinine-b ased formula (MDRD) 44 low: 60 low GFR, EST. NONAF RICAN 44 (L) >=60 10/26 7:52 PM CDT [facility] [employer] [facility] Not Available Not Available 10/27/2024 13:50:12 10/27/19 25 10/26/2024 Compr ehens tommy metab olic 2000 panel - Serum or Plasm a interpretati on and review of laboratory results Abnorm al Not Available Not Available 13:50:12 10/27/19 25 10/26/2024 Natri ureti c pepti de B [Mass /volu me] in Serum or Plasm a natriuretic peptide B [mass/volume ] in serum or plasma 123 pg/mL high: 100pg/ mL high B TYPE NATRI URETI C PEPTI DE 123 (H) <100 pg/mL 10/26 8:10 PM CDT [facility] Not Available Not Available 10/27/2024 13:50:12 10/27/19 25 10/26/2024 Natri ureti c pepti de B [Mass /volu me] in Serum or Plasm a interpretati on and review of laboratory results Abnorm al Not Available Not Available 13:50:12 10/27/19 25 10/26/2024 CBC W Auto Diffe renti al panel - Blood leukocytes [#/volume] in blood by automated count 10.9 text: 4.00 - 12.00 10(3)/ mcL WBC 10.90 4.00 - 12.00 10(3) /mcL 10/26 6:01 AM CDT [facility] Not Available Not Available 10/27/2024 13:50:06 10/27/19 25 10/26/2024 CBC W Auto Diffe renti al panel - Blood erythrocytes [#/volume] in blood by automated count 3.93 text: 3.80 - 5.30 10(6)/ mcL RBC 3.93 3.80 - 5.30 10(6) /mcL 10/26 6:01 AM CDT [facility] Not Available Not Available 10/27/2024 13:50:06 10/27/19 25 10/26/2024 CBC W Auto Diffe renti al panel - Blood hemoglobin [mass/volume ] in blood 10.9 g/dL low: 12g/dL high: 15.8g/ dL low HEMOG LOBIN (HGB) 10.9 (L) 12.0 - 15.8 g/dL 10/26 6:01 AM [facility] Not [facility] Not Available 10/27/2024 13:50:06 10/27/19 25 10/26/2024 CBC W Auto Diffe renti al panel - Blood hematocrit [volume fraction] of blood by automated count 36.2 % low: 36%hig h: 47% HEMAT OCRIT (HCT) 36.2 36.0 - 47.0 % 10/26 6:01 AM [facility] Not Available Not Available 10/27/2024 13:50:06 10/27/19 25 10/26/2024 CBC W Auto Diffe renti al panel - Blood MCV [entitic volume] by automated count 92.1 fL low: 82fLhi gh: 96fL MCV 92.1 82.0 - 96.0 fL 10/26 6:01 AM [facility] Not Available Not Available 10/27/2024 13:50:06 10/27/19 25 10/26/2024 CBC W Auto Diffe renti al panel - Blood MCH [entitic mass] by automated count 27.7 pg low: 26pghi gh: 34pg MCH 27.7 26.0 - 34.0 pg 10/26 6:01 AM CDT [facility] Not Available Not Available 10/27/2024 13:50:06 10/27/19 25 10/26/2024 CBC W Auto Diffe renti al panel - Blood MCHC [mass/volume ] by automated count 30.1 g/dL low: 31g/dL high: 36g/dL low MCHC 30.1 (L) 31.0 - 36.0 g/dL 10/26 6:01 AM CDT [facility] Not Available Not Available 10/27/2024 13:50:06 10/27/19 25 10/26/2024 CBC W Auto Diffe renti al panel - Blood platelets [#/volume] in blood 272 text: 140 - 440 10(3)/ mcL PLATE LET COUNT 272 140 - 440 10(3) /mcL 10/26 6:01 AM CDT [facility] Not Available Not Available 10/27/2024 13:50:06 10/27/19 25 10/26/2024 CBC W Auto Diffe renti al panel - Blood erythrocyte distribution width [ratio] by automated count 15.9 % low: 11.8%h igh: 15.5% high RDW 15.9 (H) 11.8 - 15.5 % 10/26 6:01 AM CDT [facility] Not Available Not Available 10/27/2024 13:50:06 10/27/19 25 10/26/2024 CBC W Auto Diffe renti al panel - Blood platelet mean volume [entitic volume] in blood by automated count 9.4 fL low: 9.7fLh igh: 12.4fL low MPV 9.4 (L) 9.7 - 12.4 fL 10/26 6:01 AM CDT [facility] Not Available Not Available 10/27/2024 13:50:06 10/27/19 25 10/26/2024 CBC W Auto Diffe renti al panel - Blood neutrophils/ 100 leukocytes in blood by automated count 93.2 % low: 47%hig h: 73% high NEUTR OPHIL S 93.2 (H) 47.0 - 73.0 % 10/26 6:01 AM CDT [facility] Not Available Not Available 10/27/2024 13:50:06 10/27/19 25 10/26/2024 CBC W Auto Diffe renti al panel - Blood lymphocytes/ 100 leukocytes in blood by automated count 3.9 % low: 18%hig h: 42% low LYMPH OCYTE S 3.9 (L) 18.0 - 42.0 % 10/26 6:01 AM CD[facility] Not Available Not Available 10/27/2024 13:50:06 10/27/19 25 10/26/2024 CBC W Auto Diffe renti al panel - Blood monocytes/10 0 leukocytes in blood by automated count 2.8 % low: 4%high : 12% low MONOC YTES 2.8 (L) 4.0 - 12.0 % 10/26 6:01 AM CDT [facility] Not Available Not Available 10/27/2024 13:50:06 10/27/19 25 10/26/2024 CBC W Auto Diffe renti al panel - Blood eosinophils/ 100 leukocytes in blood by automated count 0 % low: 0%high : 5% EOSIN OPHIL S 0.0 0.0 - 5.0 % 10/26 6:01 AM CDT [facility] Not Available Not Available 10/27/2024 13:50:06 10/27/19 25 10/26/2024 CBC W Auto Diffe babarti al panel - Blood basophils/10 0 leukocytes in blood by automated count 0.1 % low: 0%high : 1% BASOP HILS 0.1 0.0 - 1.0 % 10/26 6:01 AM CDT [facility] Not Available Not Available 10/27/2024 13:50:06 10/27/19 25 10/26/2024 CBC W Auto Diffe babarti al panel - Blood neutrophils [#/volume] in blood by automated count 10.15 text: 1.60 - 7.70 10(3)/ mcL high ABSOL [place] NEUTR OPHIL S 10.15 (H) 1.60 - 7.70 10(3) /mcL 10/26 6:01 AM CDT [facility] Not Available Not Available 10/27/2024 13:50:06 10/27/19 25 10/26/2024 CBC W Auto Diffe renti al panel - Blood lymphocytes [#/volume] in blood by automated count 0.43 text: 1.30 - 3.20 10(3)/ mcL low ABSOL [place] LYMPH OCYTE S 0.43 (L) 1.30 - 3.20 10(3) /mcL 10/26 6:01 AM CDT [facility] Not Available Not Available 10/27/2024 13:50:06 10/27/19 25 10/26/2024 CBC W Auto Diffe renti al panel - Blood monocytes [#/volume] in blood by automated count 0.31 text: 0.20 - 1.00 10(3)/ mcL ABSOL [place] MONOC YTES 0.31 0.20 - 1.00 10(3) /mcL 10/26 6:01 AM CDT [facility] Not Available Not Available 10/27/2024 13:50:06 10/27/19 25 10/26/2024 CBC W Auto Diffe renti al panel - Blood eosinophils [#/volume] in blood by automated count 0 text: 0.00 - 0.40 10(3)/ mcL ABSOL [place] EOSIN OPHIL 0.00 0.00 - 0.40 10(3) /mcL 10/26 6:01 AM CDT [facility] Not Available Not Available 10/27/2024 13:50:06 10/27/19 25 10/26/2024 CBC W Auto Diffe renti al panel - Blood basophils [#/volume] in blood by automated count 0.01 text: 0.00 - 0.10 10(3)/ mcL [facility] [place] BASOP HILS 0.01 0.00 - 0.10 10(3) /mcL 10/26 6:01 AM CDT [facility] Not Available Not Available 10/27/2024 13:50:06 10/27/19 25 10/26/2024 CBC W Auto Diffe renti al panel - Blood nucleated erythrocytes /100 leukocytes [ratio] in blood 0 NRBC PER 100 WBC 0 10/26 6:01 AM CDT [facility] Not Available Not Available 10/27/2024 13:50:06 10/27/19 25 10/26/2024 CBC W Auto Diffe renti al panel - Blood sfdc architect review of results Yes RESUL TS ARE CONSI STENT WITH PERIP HERAL SMEAR REVIE W Yes 10/26 6:01 AM CDT [facility] Not Available Not Available 10/27/2024 13:50:06 10/27/19 25 10/26/2024 CBC W Auto Diffe renti al panel - Blood erythrocytes [morphology] in blood by automated count Yes RBC MORPH OLOGY CONSI STENT WITH INDIC ES Yes 10/26 6:01 AM CDT [facility] Not Available Not Available 10/27/2024 13:50:06 10/27/19 25 10/26/2024 CBC W Auto Diffe renti al panel - Blood interpretati on and review of laboratory results Abnorm al Not Available Not Available 13:50:06 10/27/19 25 10/26/2024 Basic metab olic 2000 panel - Serum or Plasm a sodium [moles/volum e] in serum or plasma 141 mmol/ L low: 136mmo l/Lhig h: 145mmo l/L SODIU M 141 136 - 145 mmol/ L 10/26 5:30 AM CDT [facility] Not Available Not Available 10/27/2024 13:50:05 10/27/19 25 10/26/2024 Basic metab olic 2000 panel - Serum or Plasm a potassium [moles/volum e] in serum or plasma 4.7 mmol/ L low: 3.5mmo l/Lhig h: 5.1mmo l/L POTAS SIUM 4.7 3.5 - 5.1 mmol/ L 10/26 5:30 AM CDT [facility] Not Available Not Available 10/27/2024 13:50:05 10/27/19 25 10/26/2024 Basic metab olic 2000 panel - Serum or Plasm a chloride [moles/volum e] in serum or plasma 103 mmol/ L low: 98mmol /Lhigh : 107mmo l/L CHLOR ISABEL 103 98 - 107 mmol/ L 10/26 5:30 AM CDT [facility] Not Available Not Available 10/27/2024 13:50:05 10/27/19 25 10/26/2024 Basic metab olic 2000 panel - Serum or Plasm a carbon dioxide, total [moles/volum e] in serum or plasma 30 mmol/ L low: 22mmol /Lhigh : 30mmol /L CO2, VENOU S 30 22 - 30 mmol/ L 10/26 5:30 AM CDT [facility] Not Available Not Available 10/27/2024 13:50:05 10/27/19 25 10/26/2024 Basic metab olic 1999 panel - Serum or Plasm a anion gap in serum or plasma 12.7 mmol/ L high: 18mmol /L ANION GAP 12.7 <18.0 mmol/ L 10/26 5:30 AM CDT [facility] Not Available Not Available 10/27/2024 13:50:05 10/27/19 25 10/26/2024 Basic metab olic 2000 panel - Serum or Plasm a glucose [mass/volume ] in serum or plasma 121 mg/dL low: 70mg/d Lhigh: 99mg/d L high GLUCO SE 121 (H) 70 - 99 mg/dL 10/26 5:30 AM CDT [facility] Not Available Not Available 10/27/2024 13:50:05 10/27/19 25 10/26/2024 Basic metab olic 2000 panel - Serum or Plasm a urea nitrogen [mass/volume ] in serum or plasma 30 mg/dL low: 10mg/d Lhigh: 20mg/d L high BUN 30 (H) 10 - 20 mg/dL 10/26 5:30 AM CDT [facility] Not Available Not Available 10/27/2024 13:50:05 10/27/19 25 10/26/2024 Basic metab olic 2000 panel - Serum or Plasm a creatinine [mass/volume ] in serum or plasma 1.16 mg/dL low: 0.6mg/ dLhigh : 1mg/dL high CREAT ININE , BLOOD 1.16 (H) 0.60 - 1.00 mg/dL 10/26 5:30 AM CDT [facility] Not Available Not Available 10/27/2024 13:50:05 10/27/19 25 10/26/2024 Basic metab olic 1999 panel - Serum or Plasm a urea nitrogen/cre atinine [mass ratio] in serum or plasma 26 text: 12 - 20 ratio high BUN/C REATI NINE RATIO 26 (H) 12 - 20 ratio 10/26 5:30 AM CDT [facility] [facility] Not Available Not Available 10/27/2024 13:50:05 10/27/19 25 10/26/2024 Basic metab olic 1999 panel - Serum or Plasm a calcium [mass/volume ] in serum or plasma 9 mg/dL low: 8.7mg/ dLhigh : 10.5mg /dL CALCI UM 9.0 8.7 - 10.5 mg/dL 10/26 5:30 AM CDT [facility] [employer] [facility] Not Available Not Available 10/27/2024 13:50:05 10/27/19 25 10/26/2024 Basic metab olic 1999 panel - Serum or Plasm a glomerular filtration rate/1.73 sq M.predicted [volume rate/area] in serum, plasma or blood by creatinine-b ased formula (CKD-epi 2020) 53 low: 60 low GFR, ESTIM ATED 53 (L) >=60 10/26 5:30 AM CDT [facility] [employer] [facility] Not Available Not Available 10/27/2024 13:50:05 10/27/19 25 10/26/2024 Basic metab olic 1999 panel - Serum or Plasm a glomerular filtration rate/1.73 sq M.predicted among blacks [volume rate/area] in serum, plasma or blood by creatinine-b ased formula (MDRD) 57 low: 60 low GFR, EST. AFRIC AN 57 (L) >=60 10/26 5:30 AM CDT [facility] Not Available Not Available 10/27/2024 13:50:05 10/27/19 25 10/26/2024 Basic metab olic 2000 panel - Serum or Plasm a glomerular filtration rate/1.73 sq M.predicted among non-blacks [volume rate/area] in serum, plasma or blood by creatinine-b ased formula (MDRD) 47 low: 60 low GFR, EST. NONAF RICAN 47 (L) >=60 10/26 5:30 AM CDT [facility] Not Available Not Available 10/27/2024 13:50:05 10/27/19 25 10/26/2024 Basic metab olic 2000 panel - Serum or Plasm a interpretati on and review of laboratory results Abnorm al Not Available Not Available 13:50:05 05/31/20 24 05/18/2024 XR, chest , 2 view No observ ation record ed. [email or web address] [facility] Scheduling [address], [place], [address], 05/31/2024 15:08:42 Result Notes None recorded. Problems Name Problem SNOMED Code Status Onset Date Resolution Date Notes Provider Name and Address Organization Details Recorded Time Chronic obstruct tommy pulmonar y disease 90655196 Active 2022 Not Available [facility] 4 19:08:46 Gastro-e sophagea l reflux disease with esophagi tis 717666945 Active 2022 Not Available [facility] 4 19:08:46 Esophage al web / ring 694176330 Active 2022 Not Available [facility] 4 19:08:46 Hiatal hernia 21238992 Active 2022 Not Available [facility] 4 19:08:46 Duodenit is 40746038 Active 2022 Not Available [facility] 4 19:08:46 Gastriti s 4875355 Active 2022 Not Available [facility] 4 19:08:46 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 512271575 Active 2022 Not Available [facility] 4 19:08:46 Hypothyr oidism 90700282 Active 2022 Not Available [facility] 4 19:08:46 Mixed anxiety and depressi ve disorder 575792028 Active 2022 Not Available [facility] 4 19:08:46 Swelling of left upper limb [id number] 874718 Active 2022 Not Available [facility] 4 19:08:46 History of transien t ischemic attack 061968726 Active 2022 Not Available [facility] 4 19:08:46 [facility] hyperten clay 46612786 Active 2022 Not Available [facility] 4 19:08:46 Chronic low back pain 823523506 Active 2022 Not Available [facility] 4 19:08:46 History of polyp of colon 368385300 Active 2022 Not Available [facility] 4 19:08:46 Recurren t oral herpes simplex infectio n 605038788 Active 2022 Not Available [facility] 4 19:08:46 Prediabe macario 597886618 Active 2023 LIANNE STACK MD Attn: Accounting ,[address] [place], [address] , [place] - [facility] 4 11:21:51 Vitamin D deficien cy 52236410 Active 2023 LIANNE STACK MD Attn: Accounting ,[address] [facility], [place], [address] , [place] - [facility] 4 15:34:35 Polymyal vishal rheumati ca 14106811 Completed 202310/29/2023 Removal Reason: rheumato logist favors diagnosi s of fibromya lgia LIANNE STACK MD Attn: Accounting ,[address] [facility], [place], [address] , [place] - [facility] 4 13:43:15 Fibromya lgia 047755101 Active 2023 LIANNE STACK MD Attn: Accounting ,[address] [place], [address] , [place] - [facility] 4 13:43:22 Dependen ce on suppleme ntal oxygen 21849698470 7 Active 2023 LIANNE STACK MD Attn: Accounting ,[address] [facility], [place], [address] , [facility] - [facility] 4 11:21:47 Obstruct tommy sleep apnea syndrome 93682998 Active 2023 LIANNE STACK MD Attn: Accounting ,[address] [facility], [place], [address] , [facility] - SI 4 16:51:56 History of methamph etamine abuse 15753916390 703718 Active 2023 LIANNE STACK MD Attn: Accounting ,[address] [facility], [place], [address] , [facility] - SI 4 13:36:24 Problem Notes None recorded. Procedures Surgical History Date Name Laterality Status Provider Name and Address Organization Details Recorded Time 08/02/19 08 Total hysterectomy completed Jina Winn MA [facility] 03/23/2023 14:15:23 Cholecystectomy completed Caroline Jerez MA [facility] 01/12/2023 15:05:36 Tonsillectomy completed Caroline Jerez MA [facility] 01/12/2023 15:05:43 total knee replacement completed Caroline Jerez MA [facility] 01/12/2023 15:06:00 Imaging Results Imaging Date Name Status LastModified by Organiz ation Details LastModified Time 05/18/2024 XR, chest, 2 view completed [email or web address] [facility]) Scheduling [address] [place], [address], 05/31/2024 15:08:42 Procedure Notes None recorded. Medical Equipment None Reported. Allergies Allergen ID Allergen Name Allergen Category Reaction Reaction Severity Criticality Documentation Date Start Date Code Code System Note Provider Name and Address Organization Details Recorded Time 434023 Biaxin medicatio n Not available Not available Not available 01/12/202399839 9 RxNorm Caroline Jeerz MA null, [place] - [facility] 3 14:52:30 [id number] gabapenti n medicatio n Not available Not available Not available 01/12/2023 [id number] RxNorm Caroline Jerez MA null, [place] - [facility] 3 14:52:35 Medications Name Sig Start Date Stop Date Status Note LastModified by Organization Details LastModified Time Prescript ion - Renewal active Not Available Not Available Not Available Prescript ion - Prior Authoriza tion Request active Not Available Not Available Not Available cyclobenz aprine 10 mg tablet TAKE 1 TABLET BY MOUTH THREE TIMES DAILY NEEDED FOR BACK PAIN active Not Available Not Available No t Available atorvasta tin 40 mg tablet TAKE 1 TABLET BY MOUTH EVERY DAY active Not Available Not Available No t Available levothyro xine 137 mcg tablet TAKE 1 TABLET BY MOUTH EVERY DAY 09/13 completed Not Available Not Available Not Available clonidine HCl 0.1 mg tablet TAKE ONE TABLET BY MOUTH EVERY DAY NEEDED active Not Available Not Available No t Available prednison e 10 mg tablet TAKE 1 TABLET BY MOUTH EVERY MORNING FOR POLYMYAL VISHAL RHEUMATI CA 09/13 completed Not Available Not Available Not Available ropinirol e 1 mg tablet TAKE 1 TABLET BY MOUTH EVERY NIGHT active Not Available Not Available No t Available albuterol sulfate 2.5 mg/3 mL (0.083 %) solution for nebulizat ion active Not Available Not Available Not Available azithromy tre 250 mg tablet TAKE 2 TABLETS (500 MG) BY ORAL ROUTE ONCE DAILY FOR 1 DAY THEN 1 TABLET (250 MG) BY ORAL ROUTE ONCE DAILY FOR 4 DAYS 05/31 completed Not Available Not Available Not Available Lidocaine Viscous 2 % mucosal solution Swish and spit 15 mL every 3 hours as needed for mouth pain and sore tongue. 11/02 completed Not Available Not Available Not Available ofloxacin 0.3 % eye drops INSTILL 1 DROP INTO AFFECTED EYE(S) BY OPHTHALM IC ROUTE 4 TIMES PER DAY x7 days 09/07 completed Not Available Not Available Not Available benzonata te 200 mg capsule TAKE 1 CAPSULE BY MOUTH TWICE DAILY NEEDED FOR COUGH 04/20 completed Not Available Not Available Not Available prazosin 1 mg capsule TAKE 1 CAPSULE BY MOUTH AT BEDTIME 03/22 completed states she had shaking episode when on medicati on during hospital ization Not Available Not Available Not Available sucralfat e 100 mg/mL oral suspensio n Take 10 mL 4 times a day by oral route. 11/16 completed before meals and at bedtime Not Available Not Available Not Available meloxicam 15 mg tablet TAKE 1 TABLET BY MOUTH EVERY DAY FOR BACK FOR PAIN 09/13 completed Not Available Not Available Not Available prednison e 20 mg tablet TAKE TWO TABLETS BY MOUTH DAILY WITH BREAKFAS T FOR FIVE DAYS active Not Available Not Available No t Available sertralin e 100 mg tablet TAKE 1 TABLET BY MOUTH AT BEDTIME active Not Available Not Available No t Available prednison e 5 mg tablet TAKE 1 TABLET BY MOUTH ONCE DAILY WTIH 10 MG TABLET FOR A TOTAL DOSE OF 15 MG DAILY. 09/13 completed Not Available Not Available Not Available methylpre dnisolone 4 mg tablet TAKE 3 TABLET BY MOUTH EVERY MORNING 09/13 completed Not Available Not Available Not Available clobetaso l 0.05 % topical cream APPLY TO ELBOWS AND KNEES TWICE DAILY NEEDED active Not Available Not Available No t Available hydroxyzi ne pamoate 50 mg capsule TAKE ONE CAPSULE BY MOUTH THREE TIMES DAILY NEEDED active Not Available Not Available No t Available amlodipin e 2.5 mg tablet TAKE 1 TABLET BY MOUTH EVERY DAY 11/02 completed on 5 mg Not Available Not Available Not Available amlodipin e 5 mg tablet TAKE ONE TABLET BY MOUTH ONCE DAILY active Not Available Not Available No t Available valacyclo vir 500 mg tablet TAKE 1 TABLET BY MOUTH TWICE DAILY FOR 3 DAYS 04/20 completed Not Available Not Available Not Available sulfameth oxazole 800 mg-trimet hoprim 160 mg tablet TAKE 1 TABLET BY MOUTH EVERY 12 HOURS FOR 7 DAYS FOR SKIN INFECTIO N 05/31 completed Not Available Not Available Not Available meloxicam 7.5 mg tablet TAKE 1 TABLET BY MOUTH EVERY DAY FOR LOW BACK PAIN 09/13 completed Not Available Not Available Not Available oxycodone -acetamin ophen 5 mg-325 mg tablet TAKE ONE TABLET BY MOUTH EVERY 6 HOURS NEEDED FOR PAIN active Not Available Not Available No t Available alprazola m 0.25 mg tablet TAKE 1 TABLET BY MOUTH THREE TIMES DAILY NEEDED FOR ANXIETY 03/22 completed limited script on hospital discharg e Not Available Not Available Not Available Fleet Enema 19 gram-7 gram/118 mL active Not Available Not Available Not Available famotidin e 20 mg tablet TAKE 1 TABLET BY MOUTH TWICE DAILY active Not Available Not Available No t Available metoclopr amide 5 mg tablet Take 1 tablet 4 times a day by oral route as needed, for nausea and vomiting . 2024 active Not Available Not Available Not Avai lable magnesium hydroxide 400 mg/5 mL oral suspensio n 09/13 completed Not Available Not Available Not Available tamsulosi n 0.4 mg capsule TAKE ONE CAPSULE BY MOUTH EVERY MORNING active Not Available Not Available No t Available benzonata te 100 mg capsule Take 1 capsule 3 times a day by oral route as needed for 30 days. 03/16 completed disconti nued at hospital discharg e 02/29/24 Not Available Not Available Not Available pantopraz ole 40 mg tablet,de layed release TAKE 1 TABLET BY MOUTH EVERY 12 HOURS active Not Available Not Available No t Available venlafaxi ne 37.5 mg tablet TAKE 1 TABLET BY MOUTH EVERY DAY 11/16 completed Not Available Not Available Not Available levothyro xine 125 mcg tablet TAKE 1 TABLET BY MOUTH EVERY MORNING BEFORE BREAKFAS T 03/22 completed Not Available Not Available Not Available ropinirol e 0.5 mg tablet TAKE 1 TABLET BY MOUTH EVERY NIGHT 12/21 completed Not Available Not Available Not Available nystatin 100,000 unit/gram topical cream APPLY TOPICALL Y TO THE AFFECTED AREA TWICE DAILY FOR 7 DAYS 11/02 completed Not Available Not Available Not Available prednison e 50 mg tablet TAKE 1 TABLET BY MOUTH EVERY DAY FOR 5 DAYS FOR COPD EXACERBA TION 05/31 completed Not Available Not Available Not Available lidocaine 5 % topical patch APPLY 1 PATCH TOPICALL Y TO THE SKIN EVERY DAY. MAY WEAR UP TO 12 HOURS active Not Available Not Available No t Available levothyro xine 150 mcg tablet TAKE 1 TABLET BY MOUTH EVERY DAY ON AN EMPTY STOMACH active Not Available Not Available No t Available sertralin e 25 mg tablet TAKE 1 TABLET BY MOUTH AT BEDTIME 03/22 completed did not have benefit on increase d dose, so not taking 25 mg dose; takes 100 mg total Not Available Not Available Not Available hydrocort isone 2.5 % topical cream APPLY TO CORNERS OF THE MOUTH TWICE DAILY NEEDED 11/16 completed duplicat e Not Available Not Available Not Available ergocalci ferol (vitamin D2) 1,250 mcg (50,000 unit) capsule TAKE 1 CAPSULE BY MOUTH EVERY WEEK active Not Available Not Available No t Available irbesarta n 150 mg tablet 2023 active Not Available Not Available Not Avai lable ibuprofen 600 mg tablet 12/21 completed Not Available Not Available Not Available albuterol sulfate HFA 90 mcg/actua tion aerosol inhaler INHALE 2 PUFFS BY MOUTH EVERY 4 HOURS NEEDED active Not Available Not Available No t Available hydrocort isone 2.5 % topical ointment APPLY THIN LAYER TOPICALL Y TO THE AFFECTED AREA TWICE DAILY active Not Available Not Available No t Available ketoconaz ole 2 % topical cream APPLY TO THE RASH ON YOUR ABDOMEN AND LEGS BY TOPICAL ROUTE ONCE DAILY UNTIL THEY RESOLVE active Not Available Not Available No t Available ondansetr on 4 mg disintegr ating tablet DISSOLVE 1 TABLET ON THE TONGUE EVERY 6 TO 8 HOURS NEEDED FOR NAUSEA OR VOMITING active Not Available Not Available No t Available fluticaso ne propionat e 50 mcg/actua tion nasal spray,jere pension SHAKE LIQUID AND USE 1 SPRAY IN EACH NOSTRIL EVERY DAY active Not Available Not Available No t Available prazosin 2 mg capsule TAKE ONE CAPSULE BY MOUTH AT BEDTIME 03/22 completed states she had shaking episode when on medicati on during hospital ization Not Available Not Available Not Available naproxen 500 mg tablet TAKE 1 TABLET BY MOUTH TWICE DAILY NEEDED FOR MODERATE TO SEVERE PAIN 11/16 completed Not Available Not Available Not Available oxycodone 5 mg tablet Take 1 tablet 3 times a day by oral route as needed for 30 days, for severe pain. 2024 active Not Available Not Available Not Avai labgm hydroxyzi ne pamoate 25 mg capsule 09/13 completed Not Available Not Available Not Available aripipraz ole 10 mg tablet TAKE 1 TABLET BY MOUTH AT BEDTIME 05/31 completed Not Available Not Available Not Available aripipraz ole 15 mg tablet TAKE 1 TABLET BY MOUTH AT BEDTIME active Not Available Not Available No t Available cyclobenz aprine 5 mg tablet TAKE 1 TABLET BY MOUTH UP TO THREE TIMES DAILY NEEDED FOR MUSCLE SPASMS 11/16 completed Not Available Not Available Not Available metoprolo l tartrate 25 mg tablet active Not Available Not Available Not Available duloxetin e 20 mg capsule,d elayed release TAKE 1 CAPSULE BY MOUTH EVERY DAY 01/10 completed Not Available Not Available Not Available duloxetin e 30 mg capsule,d elayed release TAKE ONE CAPSULE BY MOUTH EVERY DAY active Not Available Not Available No t Available duloxetin e 60 mg capsule,d elayed release TAKE 1 CAPSULE BY MOUTH EVERY DAY active Not Available Not Available No t Available pregabali n 75 mg capsule TAKE ONE CAPSULE BY MOUTH TWICE DAILY active Not Available Not Available No t Available aripipraz ole 2 mg tablet TAKE 1 TABLET BY MOUTH AT BEDTIME 05/31 completed Rx by forensic psychiatrist; on 12 mg daily total (discuss ed 03/22/24) Not Available Not Available Not Available diclofena c 1 % topical gel APPLY 4 GRAMS TO KNEES BY TOPICAL ROUTE 4 TIMES PER DAY 03/22 completed Not Available Not Available Not Available Eye Itch Relief 0.025 % (0.035 %) drops INSTILL 1 DROP IN AFFECTED EYE(S) TWICE DAILY 04/20 completed Not Available Not Available Not Available ProChambe r USE DIRECTED WITH INHALER active Not Available Not Available No t Available Anoro Ellipta 62.5 mcg-25 mcg/actua tion powder for inhalatio n USE 1 INHALATI ON BY MOUTH ONCE DAILY active Not Available Not Available No t Available naloxone 4 mg/actuat ion nasal spray Take 1 spray as needed by nasal route, for overdose . active Not Available Not Available No t Available Austedo 9 mg tablet TAKE 1 TABLET BY MOUTH TWICE DAILY active Not Available Not Available No t Available Austedo 6 mg tablet TAKE 1 TABLET BY MOUTH TWICE DAILY 09/13 completed Not Available Not Available Not Available albuterol 90 mcg-budes onide 80 mcg/actua tion HFA aerosol inhaler Inhale by inhalati on route. 05/27 completed Not Available Not Available Not Available Klayesta 100,000 unit/gram topical powder APPLY TOPICALL Y TO THE AFFECTED AREA THREE TIMES DAILY FOR 14 DAYS DIRECTED active Not Available Not Available No t Available tramadol 25 mg tablet Take by oral route for 14 days. 02/21 completed Not Available Not Available Not Available Vitals Date Recorded Body height Body mass index (BMI) Body weight Oxygen saturation Oxygen saturation in Arterial blood by Pulse oximetry Inhaled oxygen flow rate Heart rate Body temperature Systolic blood pressure Diastolic blood pressure Systolic blood pressure Diastolic blood pressure Provider Name and Address Organization Details Last Updated DateTime 4 167.64 cm 38.3 kg/m2 313100. 49 g 95 % 95 % 3 L/min 115 /min 99 [degF] 135 mm[Hg] 103 mm[Hg] 120 mm[Hg] 86 mm[Hg] Jina Winn MA [facility] 4 14:50:50 Date Recorded Body height Body mass index (BMI) Body weight Oxygen saturation Oxygen saturation in Arterial blood by Pulse oximetry Inhaled oxygen flow rate Heart rate Body temperature Systolic blood pressure Diastolic blood pressure Provider Name and Address Organization Details Last Updated DateTime 4 167.64 cm 37.6 kg/m2 641179. 72 g 94 % 94 % 3 L/min 83 /min 98.6 [degF] 137 mm[Hg] 95 mm[Hg] Jina Winn MA [facility] 4 14:47:53 Date Recorded Body height Body mass index (BMI) Body weight Oxygen saturation Oxygen saturation in Arterial blood by Pulse oximetry Body temperature Systolic blood pressure Diastolic blood pressure Provider Name and Address Organization Details Last Updated DateTime 4 167.64 cm 37.8 kg/m2 168082. 06 g 96 % 96 % 98.9 [degF] 134 mm[Hg] 91 mm[Hg] Jina Winn MA [facility] 4 15:35:38 Date Recorded Body height Provider Name an d Address Organization Details Last Updated DateTime 09/13/2024 167.64 cm Jina Winn MA [facility] 09/13 14:36:05 Date Recorded Body height Body mass index (BMI) Body weight Heart rate Oxygen saturation Oxygen saturation in Arterial blood by Pulse oximetry Inhaled oxygen flow rate Body temperature Systolic blood pressure Diastolic blood pressure Provider Name and Address Organization Details Last Updated DateTime 5 167.64 cm 37 kg/m2 659377 g 114 /min 92 % 92 % 4 L/min 98 [degF] 119 mm[Hg] 82 mm[Hg] Jina Winn MA [facility] 5 15:01:39 Social History Question Answer Notes LastModified by Organizat ion Details LastModified Time Tobacco Smoking Status Former Smoker Pt quit just over a month ago, 05/15/2024 Caroline Curiel MA [facility] [place], [place] - [facility] 05/15/2024 15:12:56 What Is Your Level Of Alcohol Consumption? None Information not available 01/12/2023 Are You Blind Or Do You Have Difficulty Seeing? No Information not available 01/12/2023 What Is Your Level Of Caffeine Consumption? Heavy Pt. Drinks A Lot Of Pepsi Information not available 01/12/2023 In The 14 Days Before Symptom Onset, Have You Had Close Contact With A Laboratory-confi rmed COVID-19 While That Case Was Ill? No Information not available 01/12/2023 In The 14 Days Before Symptom Onset, Have You Had Close Contact With A Person Who Is Under Investigation For COVID-19 While That Person Was Ill? No Information not available 01/12/2023 Have You Been To An Area Known To Be High Risk For COVID-19? No Information not available 01/12/2023 Are You Currently Employed? No Disibility Information not available 01/12/2023 Are You Deaf Or Do You Have Serious Difficulty Hearing? No Information not available 01/12/2023 What Type Of Diet Are You Following? REGULAR Information not available 01/12/2023 Are There Any Guns Present In Your Home? No Information not available 01/12/2023 What Was The Date Of Your Most Recent Tobacco Screening? 11/02/2024 Information not available 11/02/2024 How Many Children Do You Have? 2 Information not available 01/12/2023 What Is Your Current Pack Years? 30ormorepack years Information not available 01/12/2023 What Is Your Relationship Status? Information not available 01/12/2023 Do You Use Your Seat Belt Or Car Seat Routinely? Yes Information not available 01/12/2023 Are You Sexually Active? No Information not available 01/12/2023 Do You Have Smoke And Carbon Monoxide Detectors In Your Home? Yes Information not available 01/12/2023 At What Age Did You Start Smoking Tobacco? 16 Information not available 01/12/2023 Are You Passively Exposed To Smoke? No Information not available 01/12/2023 How Much Tobacco Do You Smoke? No Information not available 07/21/2024 Do You Feel Stressed (tense, Restless, Nervous, Or Anxious, Or Unable To Sleep At Night)? [id number] Information not available 09/13/2024 Do You Use Any Illicit Or Recreational Drugs? No Information not available 01/12/2023 Has Tobacco Cessation Counseling Been Provided? No Information not available 05/31/2024 On What Date Was Tobacco Cessation Counseling Provided? 05/15/2024 [email or web address] Information not available 05/15/2024 How Many Years Have You Smoked Tobacco? 46 04/20/23 [email or web address] Information not available 04/20/2023 Do You Or Have You Ever Used Any Other Forms Of Tobacco Or Nicotine? No Information not available 01/12/2023 Sex: Female Functional Status Question Answer Note LastModified by Organization D etails LastModified Time What is your exercise level? None Information not available 01/12/2023 Mental Status None recorded. Family History Relationship Description Onset Age of this Age Resolved Age Notes LastModified by Organization Details LastModified Time Mother Malignant tumor of breast 26 [email or web address] Not available 01/12 15:01:03 Mother Hypertensive disorder [email or web address] Not available 01/12 15:01:52 Sister Malignant tumor of breast Pt. states sister had gene and had double mastec mela [email or web address] Not available 01/12/2023 15:01:42 Father Hypertensive disorder [email or web address] Not available 01/12 15:01:52 Medical History Condition Response Coronary Artery Disease N Other N Atrial Fibrillation N High Blood Pressure Y Thyroid Problems Y Kidney or Bladder Problems N GI Problems Y Depression Y COPD Y Blood Clots N Have you had a mammogram in the last yea r? N Skin Problems Y Eating Disorder N Anemia N Heart Attack ([place]) N Anxiety Disorder Y Diabetes N Muscle, Joint, or Bone Problems Y Seizures/Epilepsy N Acid Reflux (GERD) Y Cancer N Stroke Y Asthma Y Allergies N ADHD N Substance Abuse Y High Cholesterol N Hepatitis N Liver Disease N Schizophrenia N Headaches Y Heart Failure N Osteoporosis N Gynecological History Statement/Question Response Current Control Method Hysterectom y Date of Last Mammogram Age at First Child 19 Obstetrics History GPAL:G 3 P 0 0 0 2 Type Value Living 2 Total 3 Past Encounters Encounter ID Performer Location Encounter Start Date Encounter Closed Date Diagnosis/Indication Diagnosis SNOMED-CT Code Diagnosis ICD10 Code Diagnosis Note [id number] MD Malena DIAZ (STOREHOUSE CLERK) [address] [place] [address] 01/12/2023 14:10:53 01/19/2023 08:58:03 Adult health examination 851161528 Z00.01 - Reviewed risks for cardiovasc ular disease, infection, and cancer; ordered screening tests as appropriat e- f/u outside records from previous PCP, laura sierra Screening for malignant neoplasm of breast 290507653 Z12.31 - Due for screening mammogram; ordered today 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 Will review outside records to find out which controller inhaler she should be on.- On as-needed supplement al oxygen Hypothyroidism 58229438 E03.9 - Reports recent labs done; f/u outside records- Refilled patient's home levothyrox ine Chronic low back pain 27 7496373 M54.50 - Refilled home cyclobenza alok Essential hypertension 94297042 I10 - Elevated DBP on amlodipine 5 mg daily- f/u outside records; consider additional meds if BP elevated at next visit History of transient ischemic attack 665561628 Z86.73 - Reports history of 2 TIAs but was taken off of statin; f/u outside records regarding this decision to discontinu e statin- f/u lipid panel Screening for malignant neoplasm of respiratory tract 975966691 Z12.2 F17.210 - Current smoker with 23 pack-years - Does meet criteria for annual low-dose CT chest; ordered today Swelling o f left upper limb 6348617830 2023486 R22.32 - Tender bony prominence of left forearm x3 weeks- f/u XR - if unremarkab le, consider soft tissue US [id number] MD Malena DIAZ (STOREHOUSE CLERK) [address] [place] [address] 02/09/2023 13:32:30 02/11/2023 10:46:35 Hypothyroidism 39754404 E03.9 - Low TSH 0.212 on labs from 12/2022; on levothyrox ine 125 mcg daily- f/u TSH and adjust dose as indicated by results History of transient ischemic attack 564606414 Z86.73 - Reports history of 2 TIAs but was taken off of statin for unclear reason- Lipid panel wnl- Continue daily atorvastat in 40 mg due to history of TIA Psoriasis 2054053 L40.9 - Not controlled - Previously following with [facility] but would prefer more local office; referral placed Genitocrur al intertrigo 375086268 L30.4 - DDx: flexural psoriasis vs irritant contact dermatitis vs Candidal intertrigo - Will treat with topical steroid and have patient follow up with dermatolog y for management of chronic psoriasis- If no improvemen t or worsening symptoms, consider antifungal treatment- Advised patient to use Vaseline as barrier emollient daily to prevent further irritation and allow excoriated lesions to heal History of iritis 074485 003 Z86.69 H10.33 H53.8 - Acute eye complaints concerning for allergic conjunctiv itis vs viral conjunctiv itis - see below- Patient reports history of iritis and has known autoimmuni ty with history of psoriasis; will refer to ophtho for further evaluation and management Skin lesion 95903743 L98 .9 - f/u HSV PCR to rule out herpes as cause of vesicular lesion on right buttocks- Consider also bullous impetigo given lesion's presence in intertrigi nous area Screening for malignant neoplasm of respiratory tract 450504254 Z12.2 Z87.891 F17.210 - Current smoker with 23 pack-years - Does meet criteria for annual low-dose CT chest; scan performed 02/08/23 showed respirator y motion artifact, and radiologis t recommende d repeat screening in 1 month Acute conj unctivitis of bilateral eyes 3548855509 44711 H10.33 - Eye symptoms concerning for allergic vs viral conjunctiv itis with excoriatio ns on exam concerning for significan t itching- Will treat empiricall y with ophthalmic antihistam ine [id number] MD Malena Clarke (Adult Med) [address] [place] [address] 04/20/2023 11:51:02 04/27/2023 15:31:10 Mass of shoulder region 014952187 R22.32 likely lipoma, hx of lipoma in past, no causing any pain or irritation , will defer referral for now Obesity 795912508 E66.9 advised low fat, low cholestero l diet, regular exercise and weight reduction. Essential hypertension 74790518 I10 low, today, dwp to hold bp med until f/u next week Dizziness 537059978 R42 pt dizzy on arrival, improved with exam, will get labs, [id number] MD Malena Clarke (Adult Med) [address] [place] [address] 04/26/2023 11:37:40 04/28/2023 11:51:50 Chronic low back pain 210201736 M54.50 prn muscle relaxer Essential hypertension 97842240 I10 elevated some, has been holding med per last exam, now increased today, will resume amlodipine at 2.5 mg dose Screening for malignant neoplasm of colon 963479420 Z12.11 Obesity 118741691 E66.9 advised low fat, low cholestero l diet, regular exercise and weight reduction. [id number] MD Malena Clarke (Adult Med) [address] [place] [address] 05/27/2023 14:19:46 06/01/2023 16:30:48 Essential hypertension 00989328 I10 elevated stillresum ed amlodipine at 2.5 mg dose at last apt, took med about an hour ago Chronic low back pain 27 5065364 M54.50 prn muscle relaxer Obesity 973781113 E66.9 advised low fat, low cholestero l diet, regular exercise and weight reduction. Acute conjunctivitis 537 34575 H10.31 right eye, purulentwi ll give new abx rx Genitocrur al intertrigo 247454835 L30.4 cont with derm as planned [id number] MD Malena DIAZ (STOREHOUSE CLERK) [address] [place] [address] 08/24/2023 12:22:24 08/26/2023 09:00:11 Essential hypertension 78991274 I10 - DBP elevated after taking amlodipine 5 mg today- Currently prescribed amlodipine 2.5 mg daily. Will add irbesartan 150 mg daily for renal protection .- f/u CMP to evaluate creatinine , eGFR, and electrolyt es- Discussed signs/symp toms of HTN emergency and when to seek emergency care Hypothyroidism 40483037 E03.9 - Low TSH 0.212 on labs from 12/2022; on levothyrox ine 125 mcg daily.- Labs 04/20/23: TSH 30.1, fT4 0.72. Levothyrox ine increased to 150 mcg daily.- 08/24/23: f/u TSH with reflex fT4 and adjust medication as needed. Advised patient to take levothyrox ine by itself on empty stomach. Alkaline p hosphatase above reference range 774156564 R74.8 - 04/20/23: alk phos 230- 08/24/23: f/u CMP as above Alanine aminotransferase above reference range 502468704 R74.01 - 04/20/23: ALT 30 (normal <25 for women per [employer])- 08/24/23: f/u CMP as above to confirm persistent elevation Decreased renal function 06184918 R94.4 - 04/20/23: eGFR 55 with normal creatinine - 08/24/23: f/u CMP as above. ARB added for renal protection Prediabetes 820270197 R7 3.03 - 04/20/23: A1c 6.1%- 08/24/23: f/u repeat A1c [id number] MD Malena DIAZ (STOREHOUSE CLERK) [address] [place] [address] 09/07/2023 14:19:34 09/20/2023 10:14:29 Pain of multiple joints 77987779 M25.511 M25.512 M25.521 M25.522 M25.551 M25.552 M25.561 M25.562 L40.9 - DDx: psoriatic arthritis (history of psoriasis) vs polymyalgi a rheumatica vs lupus vs secondary to infection vs paraneopla stic vs dermatomyo sitis- Less likely rheumatoid arthritis with normal RF, CCP, and DYLLAN- Low suspicion for giant cell arteritis, as patient does not have acute-onse t symptoms consistent with GCA- f/u CBC, ESR, CRP, total CK, SPEP, vitamin D, and phosphorus levels- f/u XR for: SI joints, bilateral hips, bilateral knees, bilateral wrists, bilateral hands, bilateral elbows, and bilateral shoulders- Referred to mindy stokes for further evaluation and management . Of note, patient has seen mindy stokes in the past with a negative workup per records viewed through [facility].- Will manage as PMR with prednisone 15 mg/day while awaiting lab results Chronic ki dney disease stage 3A 561779156 N18.31 - Notified patient of abnormal kidney results on CMP- f/u urine protein/cr eatinine ratio to determine frequency of CKD screening Alkaline p hosphatase above reference range 310137336 R74.8 - 04/20/23: alk phos 230 -> 08/31/23: 192- f/u GGT and bone-speci fic alk phos to determine source of elevated alkaline phosphatas e Essential hypertension 54109823 I10 - At goal on amlodipine and irbesartan [id number] MD Malena DIAZ (STOREHOUSE CLERK) [address] [facility] [place] [address] 09/22/2023 14:14:20 10/02/2023 09:12:51 Polymyalgia rheumatica 27479326 M35.3 - Tentative diagnosis of PMR for polyarthra lgias- Symptoms have improved with prednisone 15 mg daily; will continue medication until patient is seen by mindy stokes.- If on prednisone for more than 3 months, will need DEXA to assess bone density Vitamin D deficiency 347 92597 E55.9 - Vitamin D levels 14.1; will start weekly high-dose supplement ation for 12 weeks Chronic low back pain 27 7132790 M54.50 - Refilled home cyclobenza alok [id number] MD Malena DIAZ (STOREHOUSE CLERK) [address] [place] [address] 10/20/2023 11:27:21 10/26/2023 11:02:54 Acute upper respiratory infection 62356630 J06.9 - Discussed supportive care at home with emphasis on maintainin g adequate hydration - Follow up as needed Chronic ob structive pulmonary disease 32772153 J44.9 - 01/12/23: Following with pulmonolog ist at [facility]; referred to someone more local. Not on controller inhaler currently, but has been on Advair, Symbicort, etc in past. Will review outside records to find out which controller inhaler she should be on. On as-needed supplement al oxygen.- 10/20/23: Refilled home albuterol inhaler and ordered spacer. [id number] MD Oumou DIAZhalto (STOREHOUSE CLERK) [address] [place] [address] 11/17/2023 14:35:06 11/29/2023 14:35:12 Pain of multiple joints 31176041 M25.511 M25.512 M25.521 M25.522 M25.551 M25.552 M25.561 M25.562 L40.9 - Workup with normal RF, CCP, and DYLLAN (less likely rheumatoid arthritis) , SPEP (less likely multiple myeloma), total CK (dermatomy ositis). XR of multiple joints (SI, hips, knees, wrists, hands, elbows, shoulders) consistent with OA.- Elevated CRP - non-specif ic- Referred to rheumatolo gy, now off of steroids with tentative diagnosis of fibromyalg ia- Refilled home lidocaine Orthopnea 35843909 R06.0 1 - Concern for new CHF vs pleural effusion with orthopnea and lung exam notable for bilateral crackles- Will work up with EKG, CXR, pro-BNP, CMP- f/u TTE to evaluate EF- Shortness of breath may also be due to COPD exacerbati on but less likely without wheezing- Advised patient of signs/symp toms requiring ED evaluation Chronic cough 90080733 R 05.3 - Refilled benzonatat e to help with cough [id number] MD Malena DIAZ (STOREHOUSE CLERK) [address] [place] [address] 12/07/2023 17:11:48 12/16/2023 16:23:00 Dyspnea on exertion 20991428 R06.09 - Workup negative for cardiac reasons for dyspnea. 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 Patient reports prior diagnosis of respirator y bronchioli tis associated ILD. Would like 2nd opinion. Referring to [facility] pulmonolog y, possibly ILD clinic. [id number] MD Oumou DIAZhalto (STOREHOUSE CLERK) [address] [place] [address] 12/22/2023 08:42:45 12/30/2023 11:11:51 Hypothyroidism 83915582 E03.9 - Low TSH 0.212 on labs from 12/2022; on levothyrox ine 125 mcg daily.- Labs 04/20/23: TSH 30.1, fT4 0.72. Levothyrox ine increased to 150 mcg daily.- 08/24/23: TSH wnl on levothyrox ine 150 mcg daily.- 12/22/23: TSH 0.045, fT4 wnl while hospitaliz ed; levothyrox ine adjusted. Repeat TSH in 4 weeks. Dependence on supplemental oxygen 1094221780 07 Z99.81 J44.9 R06.00 - On 4L NC- Gets hypoxic with standing or any activity. Needs shower chair to allow her to sit to take showers safely, and needs 4-wheeled walker with seat in order to take breaks frequently when up and moving.- Following with [facility]- Has someone coming to the house to set up CPAP with oxygen. Will be restarting this tonight. [id number] MD Malena DIAZ (STOREHOUSE CLERK) [address] [place] [address] 01/11/2024 15:06:30 01/12/2024 19:51:07 Seizure 53231841 R56.9 - Witnessed seizure-li ke activity by on 01/01/24- CT head performed at [facility] ED on 01/03/24, which was negative for acute intracrani al hemorrhage and demonstrat ed mild cortical atrophy with periventri cular white matter hypoattenu ation, which is likely secondary to chronic microvascu lar ischemic disease. Left before being seen and before further testing could be obtained.- Exam with some residual left hand numbness without tingling in ulnar nerve distributi on- DDx includes TIA vs CVA vs seizure vs PNES- f/u MRI brain w/wo contrast and EEG- Referred to neurology for further evaluation Fibromyalgia 437029995 M 79.7 G89.29 - Chronic back pain, worse with movement- Will trial tramadol 25 mg daily as needed, especially before cardiopulm onary PT session [id number] MD Malena DIAZ (STOREHOUSE CLERK) [address] [place] [address] 02/15/2024 11:57:14 03/01/2024 14:43:10 Nvwuj-bq-erftjlv respiratory failure 95794743 J96.21 R06.00 Z99.81 - Had to increase oxygen from 2L NC to 3L NC while in the office due to hypoxia in the 80s while evaluating patient- SpO2 improved with increasing oxygen flow- Lungs clear to auscultati on bilaterall y but concern for COPD exacerbati on vs PNA with increased cough with sputum production and hypoxia- Advised patient to seek emergency care today Nightmares 869943921 F51 .5 - Reports nightmares associated with bedwetting - Has history of trauma after daughter and follows with psychiatry , next appointmen t tomorrow. States prior episodes of nightmares improved once started on Abilify, which she continues to take.- Advised patient to discuss further with psychiatry [id number] MD Malena DIAZ [facility] (STOREHOUSE CLERK) [address] [place] [address] 02/22/2024 16:00:49 03/01/2024 16:29:39 Fibromyalgia 430040538 M79.7 G89.29 - Chronic back pain, worse with movement- Will treat with oxycodone 5 mg BID PRN for severe/kavya [facility] [place] [facility] pain- Controlled substance agreement signed 02/22/24- Discussed using pain medication only as needed, having Narcan available for overdose treatment Guilt stage of grief 225 304719 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 Feels guilty for .- Passed patient informatio n along to community health worker Melany De for community resources/ support groups- Discussed harm reduction strategies including fentanyl test strips, having Narcan available for overdose treatment Essential hypertension 38254879 I10 - On amlodipine 2.5 mg and irbesartan 150 mg- 02/22/24: BP slightly elevated to 137/95 today in setting of pain. Will adjust BP medication at next visit if persistent ly elevated Nightmares 079241954 F51 .5 - 02/15/24: Reports nightmares associated with bedwetting . Has history of trauma after daughter and follows with psychiatry , next appointmen t tomorrow. States prior episodes of nightmares improved once started on Abilify, which she continues to take. Advised patient to discuss further with psychiatry .- 02/22/24: Nightmares becoming less frequent. Has upcoming appointmen t with pulmonolog ist and sleep medicine specialist ; advised that she speak with him about sleep problems as well. [id number] MD Malena DIAZ [facility] (STOREHOUSE CLERK) [address] [place] [address] 03/16/2024 12:06:21 03/31/2024 15:19:19 Acute exacerbation of chronic obstructive pulmonary disease 866715839 J44.1 - Will treat COPD exacerbati on with prednisone 50 mg x5 days and azithromyc in 500 mg x1 day then 250 mg x4 days- Discussed supportive care at home with emphasis on maintainin g adequate hydration - Provided anticipato ry guidance for when to call office and/or seek emergency treatment Acute cellulitis 1444795 009 L03.113 Z22.322 - Will treat with Bactrim DS given known MRSA colonizati on [id number] MD Malena DIAZ (STOREHOUSE CLERK) [address] [place] [address] 03/22/2024 15:06:38 04/06/2024 15:12:37 Abnormal vital signs 28370170 R68.89 - Low BP with tachycardi a in setting of minimal PO intake today- Advised pushing oral fluids or soup at home Mixed anxi ety and depressive disorder 498480687 F41.8 - Poorly controlled on multiple medication s. Has decreased concentrat ion and motivation . Tearful in office; provided emotional support.- Advised discussing coping mechanisms for panic symptoms with therapist- Completed partial medication reconcilia tion in office today, as not all medication s were in their original containers to be reconciled . Continue medication s as prescribed by forensic psychiatrist.- Recommende d finding community/ friends by engaging in groups related to old hobbies; suggested joining a book club. Obstructiv e sleep apnea syndrome 60110388 G47.33 - Requires BiPAP per recent hospital admission- Advised patient to use BiPAP during the day for naps [id number] MD Malena DIAZ (STOREHOUSE CLERK) [address] [place] [address] 05/15/2024 14:52:49 06/01/2024 16:35:11 History of methamphetamine abuse [id number] F15.21 - Congratula joão patient on abstaining from use Essential hypertension 64163452 I10 - On amlodipine 2.5 mg and irbesartan 150 mg- 05/15/24: BP 127/90 on repeat check. Given concern for acute COPD exacerbati on, will wait to adjust BP med until not acutely ill for more accurate BP check. Chronic low back pain 27 3950577 M54.50 - Chronic, not controlled - Continue home cyclobenza alok. Will add meloxicam 7.5 mg daily and refer to PT for further evaluation and treatment. - RTC in 3 months for re-evaluat ion Acute exac erbation of chronic obstructive pulmonary disease 338956191 J44.1 - Will treat COPD exacerbati on with prednisone 50 mg x5 days and azithromyc in 500 mg x1 day then 250 mg x4 days- Discussed supportive care at home with emphasis on maintainin g adequate hydration- Provided anticipato ry guidance for when to call office and/or seek emergency treatment Ex-smoker [id number] Z87.89 1 - Congratula joão patient on abstaining from use [id number] LIANNE STACK MD [facility] (STOREHOUSE CLERK) [address] [place] [address] 05/31/2024 13:58:25 06/03/2024 12:42:24 Dependence on supplemental oxygen [id number] 07 Z99.81 J44.9 R06.00 - Handicap placard form completed today Chronic ob structive pulmonary disease 95310052 J44.9 - Poorly controlled COPD with frequent exacerbati ons- Has poor endurance. Referred to [facility]ulath[facility] hospital rehab for further evaluation and treatment. - CXR result from COPD exacerbati on reviewed with patient; no concern for PNA Chronic low back pain 27 1867399 M54.50 - Chronic, not controlled - Increased home cyclobenza alok to TID dosing. Will increase meloxicam to 15 mg daily. Will also refill oxycodone for breakthrou gh pain as below.- PT referral ordered at last visit- RTC in 3 months for re-evaluat ion Fibromyalgia 277615329 M 79.7 G89.29 - Chronic back pain, worse with movement- Will treat with oxycodone 5 mg BID PRN for severe/kavya akthrough pain- Controlled substance agreement signed 02/22/24- Discussed using pain medication only as needed, having Narcan available for overdose treatment Hypothyroidism 43948687 E03.9 - Low TSH 0.212 on labs from 12/2022; on levothyrox ine 125 mcg daily.- Labs 04/20/23: TSH 30.1, fT4 0.72. Levothyrox ine increased to 150 mcg daily.- 08/24/23: TSH wnl on levothyrox ine 150 mcg daily.- 12/22/23: TSH 0.045, fT4 wnl while hospitaliz ed; levothyrox ine adjusted. Repeat TSH in 4 weeks.- 05/31/24: No repeat TSH on file. Will recheck now. Tachycardia 4215818 R00. 0 - Noted on exam. Further workup pending TSH result; may be related to over-treat ment of hypothyroi dism. [id number] MD Malena DIAZ (STOREHOUSE CLERK) [address] [place] [address] 06/08/2024 14:32:52 06/09/2024 14:00:14 Hospital inpatient stay within past 30 days [id number] 106 Z76.89 - Admitted 06/03 to 06/06 for COPD exacerbati on- Discharge summary reviewed Acute exac erbation of chronic obstructive pulmonary disease 135201839 J44.1 - S/p hospitaliz ation for COPD exacerbati on- Continue prednisone taper per hospitalis t instructio ns- Advised calling pulmonolog ist office for appointmen t next week. Patient to discuss new sleep study vs changing BiPAP settings based on what was effective during hospitaliz ation with pulmonolog ist. [id number] MD Malena DIAZ (STOREHOUSE CLERK) [address] [place] [address] 07/21/2024 15:13:42 07/31/2024 11:17:51 Candidal intertrigo 664828167 B37.2 - Will treat with ketoconazo le cream Pain on eye movement 734 [id number] H57.12 H11.32 H53.8 - Advised optometris t/ophthalm ologist evaluation LENARD due to pain with eye movement and blurry vision. Provided patient with informatio n for [facility] and will place referral now.- Exam also notable for subconjunc tival hemorrhage of left eye, which is likely unrelated to eye pain. Painful mouth 241528211 K13.79 - Will manage symptomati avelina with viscous liodcaine Viral syndrome 513697643 B34.9 - Nausea, diarrhea, URI symptoms suggest acute viral infection. Supportive care recommende d. Psoriasis 2751187 L40.9 - Not controlled - Advised patient to set up appointmen t with dermatolog ist [id number] MD Malena DIAZ (STOREHOUSE CLERK) [address] [place] [address] 09/13/2024 11:34:10 09/14/2024 10:28:36 Fibromyalgia 554591083 M79.7 G89.29 - Chronic, not controlled since tapered off of prednisone by rheumatolo gy. Has upcoming appointmen t next week; patient reports needing repeat blood work while off of steroids.- Will increase oxycodone 5 mg BID to TID PRN for severe/kavya akthrough pain- Controlled substance agreement signed 02/22/24. Previously discussed use only as needed and with Narcan available at home in case of respirator y depression . Chronic low back pain 27 3327003 M54.50 - Chronic, not controlled - Refilled home cyclobenza alok 10 mg TID PRN. Oxycodone for breakthrou gh pain as above.- Meloxicam discontinu ed by mindy stokes.- Following with PT Positive s creening for depression on PHQ-9 (Patient Health Questionnaire 9) [id number] 66578 Z13.31 - Follows with PMHNP- On aripiprazo le, clonidine, duloxetine , hydroxyzin e, and sertraline per med list [id number] [facility] [address] [place] [address] 11/02/2024 14:46:49 11/03/2024 11:45:44 Positive screening for depression on PHQ-9 (Patient Health Questionnaire 9) [id number] 16959 Z13.31 - Follows with PMHNP- On aripiprazo le, clonidine, duloxetine , hydroxyzin e, and sertraline per med list Hospital i npatient stay within past 30 days [id number] 106 Z76.89 - Admitted 10/23/24- for COPD exacerbati on Chronic low back pain 27 2349847 M54.50 - Chronic, not controlled on cyclobenza alok 10 mg TID PRN. Refilled oxycodone for breakthrou gh pain; return to clinic in 3 months for further refills- Has not been able to do PT due to being in the hospital the day she was supposed to start- Started pregabalin a few days ago; will monitor response to new treatment- Open to back injections ; referred to pain management Fibromyalgia 434641986 M 79.7 G89.29 - Chronic, not controlled since tapered off of prednisone by mindy stokes- Pain management as above for chronic low back pain Long-term current use of opiate analgesic drug [id number] 08218 Z79.891 - Controlled substance agreement signed 02/22/24- Urine drug screen collected 4/3/25- Previously discussed oxycodone use only as needed and with Narcan available at home in case of respirator y depression Essential hypertension 48864473 I10 - Chronic, controlled on amlodipine 5 mg and irbesartan 150 mg daily Chronic ob structive pulmonary disease 87387114 J44.9 - Poorly controlled COPD with frequent exacerbati ons- Has poor endurance. [place] [facility] and treatment. - Continue home supplement al oxygen and routine follow-ups with pulmonolog ist Health Concerns Section Related Observation LastModified by Organization Detai ls LastModified Time None Recorded Concern Status LastModified by Organization Details LastModified Time None Recorded Advance Directives Directive None Recorded Payers Encounter Date Sequence Insurance Name Policy Number Policy Jackson Covered Member ID Jackson Member ID Guarantor Name 05/31/2024 1 [facility] ON OR AFTER 01/30/21 (MEDICAID REPLACEMENT - HMO) Sunita Sandgap [id number] Sunita Sandgap 06/08/2024 1 [facility] - DOS ON OR AFTER 21 (MEDICAID REPLACEMENT - HMO) Sunita Sandgap [id number] Sunita Sandgap 07/21/2024 1 [facility] ON OR AFTER 01/30/21 (MEDICAID REPLACEMENT - HMO) Sunita Sandgap [id number] Sunita Sandgap 09/13/2024 1 [facility] - DOS ON OR AFTER 21 (MEDICAID REPLACEMENT - HMO) Sunita Sandgap [id number] Sunita Sandgap 11/02/2024 1 [facility] - DOS ON OR AFTER 21 (MEDICAID REPLACEMENT - HMO) Sunita Sandgap [id number] Sunita Sandgap Notes Date Note Type Note Provider Name and Address Organization Details Recorded Time 4 text/html COPD- Improved since treatment for recent exacerbation- Still gets short of breath with walking short distances- Has handicap placard form to be completed Low back pain- Pain is not well controlled- Has not noticed a difference with the meloxicam LIANNE STACK MD Attn: Accounting,[address] [facility], [place], [address], [place] 06/01/2024 21:57:40 4 text/html Hospital follow upCOPD exacerbation- Admitted 06/03 to 06/06 for COPD exacerbation. Discharged with prednisone taper.- Had episode of falling out of bed and asking for oxygen while in the hospital. Was placed on BiPAP and recommended to have repeat sleep study done, as she will likely need adjustment of her home BiPAP settings. Slept better with higher setting while in the hospital.- On prednisone taper and still using inhaler about twice a day- No fevers but has chills- Cough and shortness of breath are about at baseline- Appointment with crystalizer in early July- Ex- is staying with her at home for the next week. Does not feel safe to be sleeping by herself. LIANNE STACK MD Attn: Accounting,[address] [place], [address], [facility] 06/08/2024 15:11:39 4 text/html Rashes- Has been taking Austedo for 2 weeks. Started by psych team for tardive dyskinesia.- Rash startedbeforetaking Austedo. First started under breasts and in groin.- Using Nystatin powder and cream for the rash.- Has rash in legs and feet as well. Rash on arms a little better.- Uses clobetasol and hydrocortisone for psoriasis- Uses Neutrogena moisturizer- States dry skin is from psoriasis- Sees a water control supervisor but needs to schedule an appointment URI symptoms- Sore throat started last night- Has a little bit of rhinorrhea. Tmax 99.3 at home. Has night sweats, but this is chronic.- No ear pain or pressure. Has a sinus headache x3 days; not improved much by ibuprofen or oxycodone for chronic back pain- Noticed eye drainage last night. Denies itching but thinks she might have scratched her eye. Noticed broken vessels in left eye when coming to appointment today. Has had blurry vision today and needed someone to drive her. States her eyes hurt to move as well.- No change in chronic cough or chronic dyspnea- Has pain with swallowing- Has some nausea without vomiting. Has loose stools about 4-5 times per day for past 2 days. LIANNE STACK MD Attn: Accounting,[address] , [place], [address], [place] [facility] 07/30/2024 11:59:26 5 text/html Chronic pain- Shoulders, legs, hips, and back hurt worse than usual- Was weaned off of prednisone by dairy truck driver. Last visit 6+ weeks ago. Last dose of steroids was 3 days ago.- Was taken off of meloxicam by dairy truck driver due to stomach side effects. Has been off of med for past month.- Pain in shoulders and hips started getting worse after coming off of prednisone- Takes oxycodone in the morning and again in the late afternoon. Not sleeping due to pain.- Started PT recently and has twice weekly plan. Will wait to do cardiopulmonary rehab until regular PT has been completed. Telehealth visit- Verbal consent for telehealth services was obtained by clinical staff.- The {{patient* parent guardi an}} was seen through {{synchronous audio and video technology* audio only was used due to patient technology challenges audio only was used due to internet bandwidth issues audio only was used due to connectivity issues audio only was used due to inadequate patient equipment audio only was used due to technology failure audio only was used due to patient preference audio only was used due to: ____}}.- Visit was conducted over [employer] Salesperson.- Physician's primary practice site: [facility] clinic - {{Site 16 ([place])* Site 14 ([place]) Site 20 ([place])}}- Location of patient: {{home* work other:}}- Time started: 2:01 PM- Time ended: 2:11 PM- Total length of visit: 9m43s LIANNE STACK MD Attn: Accounting,[address] , [place], [address], [place] [facility] 09/13/2024 15:20:19 5 text/html Hospital f/uCOPD exacerbationChronic back pain- Difficulty breathing varies on a daily basis. Has done more today than usual (had another appointment) and feels out of breath. Always using 4L at home. Sometimes has to go up to 6L while in the shower.- Still using BiPAP at home but has problems with using the machine. Has been using [employer] as supplier and plans to switch to [employer].- Back pain is sometimes so bad she can't walk. Has not done PT due to being hospitalized on the day that she was supposed to start therapy services. LIANNE STACK MD Attn: Accounting,[address] [place], [address], [place] [facility] 11/02/2024 18:06:26 OBGyn Episode No OBEpisode recorded.
--- OUTSIDE RECORDS SUMMARY | 2024-12-05 17:33 | XMS_ITS | Patient Health Record ---
Author Organization [facility] Address [address] [place] [address] Care Team Providers Care Platinum Smith Name Role Phone Vicky Thurman Primary Care Provider Patrizia Hui Unavailable [phone] Allergies Allergen (clinical drug ingredient) Drug/Non Drug Allergy documented on EMR Reaction Allergy Type Onset Date Status Biaxial (uncoded) joint welling Allergy Active codeine Codeine vomiting Drug Allergy Active gabapentin Gabapentin joint swelling Drug Allergy Active Reason For Referral No Information Medications Medication SIG (Take, Route, Frequency, Duration) Notes Start Date End Date Status predniSONE 5 MG 1 tablet with food o r milk Orally Once a day Unknown Anoro Ellipta 62.5-25 MCG/ACT 1 puff Inhalation Once a day Unknown Pantoprazole Sodium 40 MG 1 tablet 1/2 t o 1 hour before morning meal Orally twice a day Unknown Levothyroxine Sodium 125 MCG 1 tablet in the morning on an empty stomach Orally Once a day Unknown Austedo 9 MG 1 tablet with food Orally Twice a day Active Irbesartan 150 MG 1 tablet Orally Once a day Unknown cloNIDine HCl 0.1 MG 1 tablet as needed. Orally Once a day Active amLODIPine Besylate 5 MG 1 tablet Orally Once a day Unknown Cymbalta 30 MG 1 capsule Orally Onc e a day Active rOPINIRole HCl 1 MG 1 tablet Orally Once a day Unknown hydrOXYzine HCl 50 MG 1 tablet as needed Orally three times a day Active Cyclobenzaprine HCl 10 MG 1 tablet Orall y twice a day Unknown Zoloft 100 MG 1 tablet at bedtime Orally Once a day Active Atorvastatin Calcium 40 MG 1 tablet Oral ly Once a day Unknown Cymbalta 60 MG 1 capsule Orally Onc e a day Active Nystatin - as directed Unknown Nystatin 348228 UNIT/GM 1 application Externally Twice a day Unknown Norvasc Unknown Lidocaine 5 % 1 patch remove after 12 hours Externally Once a day Unknown Abilify 15 MG 1 tablet at bedtime Orally Once a day Active Metoprolol Tartrate 25 MG 1 tablet with food Orally Twice a day Unknown Social History Sex Assigned At : Social History Observation Description Sex Assigned At Female Encounters Encounter Location Date Provider Diagnosis [address] [address] 12/05/2024 Patrizia Hui [address] [address] 10/25/2024 Vicky Thurman [address] [address] 11/01/2024 Vicky Thurman [address] [address] 11/21/2024 Vicky Thurman Assessments Encounter Date Diagnosis (ICD Code) Assessment Notes Treatment Notes Treatment Clinical Notes Section Notes 12/05/2024 Other Clinician met with client to assess needs and preferences for services. Clinician explored therapy goals, history of engagement, psychiatric history and diagnosis. Clinician provided education on same day call in therapy, traditional therapy and recovery advocate services. Referrals for preferred methods will be sent following appointment. Plan Of Treatment Next Appt Details Provider Name:Vicky Lawrence , 12/06/2024 09:40:00 AM, [address] [place] [address], [address], Insurance Providers Payer Name Payer Address Payer Phone Subscriber Number Group Number Insured Name Patient Relationship to Insured Coverage Start Date Coverage End Date [facility] Attn Claims Department [address] [place] [address] [id number] Sunita Daniels Self - patient is the insured
--- OUTSIDE RECORDS SUMMARY | 2024-12-05 17:33 | XMS_ITS | Encounter Summary ---
Author Organization [facility] Address [facility] [facility] [place] [address] Care Team Providers Care Loss Control Manager Name Role Phone Glenroy Power DO Primary Care Provider [phone] Claudette Dangelo MD Primary Care Provider [phone] Claudette Dangelo MD Primary Care Provider [phone] Lianne Stack MD Primary Care Provider [phone] Reason for Visit * Reason Comments Refill Request Encounter Details Date Type Department Care Team (Late st Contact Info) Description 01/08/2020 Refill [facility] [address] [place] [address] Michelle Agee MD [address] [address] Refill Request Social History Tobacco Use Types Packs/Day Years Used Date Smoking Tobacco: Every Day Cigarettes 1 45 Smokeless Tobacco: Never Alcohol Use Standard Drinks/Week Comments Not Currently 0 (1 standard drink = 0.6 oz pur e alcohol) last drink 23 years ago Comments No Sex and Gender Information Value Date Recorded Sex Assigned at Not on file 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 Answer Date of Assessment Author No 09/07/2019 9:14 PM Gabriele Puentes RN * Is person blind or have serious difficulty seeing? Answer Date of Assessment Author No 09/07/2019 9:14 PM Gabriele Puentes RN * Does person have serious difficulty walking/climbing stairs? Answer Date of Assessment Author No 09/07/2019 9:14 PM Gabriele Puentes RN * Does person have difficulty dressing/bathing? Answer Date of Assessment Author No 09/07/2019 9:14 PM Gabriele Puentes RN * Does person have difficulty doing errands alone? Answer Date of Assessment Author Yes 09/07/2019 9:14 PM Gabriele Puentes RN documented as of this encounter Mental Status * Does person have difficulty concentrating/remembering/making decisions? Answer Entry Date Author Yes 09/07/2019 9:14 PM Gabriele Puentes RN documented in this encounter Miscellaneous Notes * Telephone Encounter - Jailyn Dowling RN - 01/09/2020 11:19 AM CDT Refill Request Sunita Daniels TAZ: 08/14/2019 NOV scheduled: 03/18/2020 LRF: Vitamin D 08/14/2019 Qty Disp: 4 capsule # of refills: 3 LRF: Naproxen 09/25/2019 Qty Disp: 60 tablets # of refills: 3 Labs: 09/2019 Allergies: Allergies Allergen Reactions ??? Clarithromycin Nausea and/or Vomiting and Swelling Joint swelling ??? Codiene [Codeine] GI Discomfort ??? Gabapentin Swelling Joint Swelling Pended Medication Order: Requested Prescriptions Pending Prescriptions Disp Refills ??? vitamin D, ergocalciferol, (DRISDOL) 1.25 MG (42244 UT) capsule [Pharmacy Med Name: VITAMIN D2 1.25 MG (50,000) CAPS] 4 capsule 3 Sig: TAKE ONE CAPSULE BY MOUTH ONCE A WEEK ??? naproxen (NAPROSYN) 500 MG tablet [Pharmacy Med Name: NAPROXEN 500 MG TABLET] 60 tablet 3 Sig: TAKE ONE TABLET BY MOUTH TWICE A DAY documented in this encounter Plan of Treatment Upcoming Encounters Date Type Department Care Team (Late st Contact Info) Description 01/17/2025 11:20 AM CDT Office Visit [facility] - Rheumatology [address] [facility], [address] [place] [address] Logan Mancilla DO [address] [place] [address] documented as of this encounter Visit Diagnoses Diagnosis Vitamin D deficiency- Primary Anti-TPO antibodies present Other and unspecified nonspecific immunological findings Arthralgia, unspecified joint Psoriasis Other psoriasis documented in this encounter Care Teams Loss Control Manager Relationship Specialty Start Date End Date Glenroy Power DO [address] [facility] [address] [place] [address] [address] [place] [address] PCP - General 05/14/21 06/17/21 Claudette Dangelo MD [address] [place] [address] PCP - General 09/07/19 05/12/21 Clauedtte Dangelo MD [address] [place] [address] PCP - General 06/18/21 07/05/24 Lianne Stack MD [address] [facility] [address] [place] [address] PCP - General Family Medicine 07/06/24 documented as of this encounter
--- OUTSIDE RECORDS SUMMARY | 2024-12-05 17:33 | XMS_ITS | Encounter Summary ---
Author Organization [facility] Address [address] [place] [address] Phone Care Team Providers Care Garage Manager Name Role Phone Lianne Stack MD Primary Care Provider [phone] Ryan Figueroa MD Unavailable Gene Russell MD Unavailable [phone] Encounter Details Date Type Department Care Team (Late st Contact Info) Description 02/04/2024 Transcribe Orders [facility] Laboratory Services [address] [place] [address] Logan Mancilla, DO [address] [id number] Polymyalgia rheumatica syndrome (HCC) (Primary Dx) Social History Tobacco Use Types Packs/Day Years Used Date Smoking Tobacco: Every Day Cigarettes 1 25.3 Started: 1999 Alcohol Use Standard Drinks/Week Comments No 0 (1 standard drink = 0.6 oz pur e alcohol) [facility] Utilities Answer Date Recorded In the past 12 months has [employer], gas, oil, or water [employer] threatened to shut off services in your home? Patient declined 12/15/2023 Social Connection and Isolation Panel [NHANES] A nswer Date Recorded In a typical week, how many times do you talk on the phone with family, friends, or neighbors? Patient declined 12/15/2023 How often do you get togethe r with friends or relatives? Patient declined 12/15/2023 How often do you attend christianity or caodaism serv ices? Patient declined 12/15/2023 Do you belong to any clubs o r organizations such as christianity groups, unions, fraternal or athletic groups, or [...] medical care, and heating? Patient declined 12/15/2023 [facility] - Occupational Stress Questionnaire Answer Date [...] place to sleep or slept in a penitentiary (including now)? Patient declined 12/15/2023 Sexually Active Control Partners Comments Not Currently Comments No Sex and Gender Information Value Date Recorded Sex Assigned at Not on file Legal Sex Female 9:25 PM CDT Gender Identity Not on file Sexual Orientation Not on file documented as of this encounter Plan of Treatment Upcoming Encounters Date Type Department Care Team (Late st Contact Info) Description 12/14/2024 11:30 AM CDT Office Visit [facility] - Pulmonology & Sleep Medicine [facility] [address] [place] [address] Ryan Figueroa MD [address] [place] [address] Scheduled Orders Name Type Priority Associated Diagnoses Orde r Schedule C-REACTIVE PROTEIN (CRP) QUANT Lab Routine Polymyalgia rheumatica syndrome (HCC) Expected: 02/04/2024, Expires: 02/03/2025 ERYTHROCYTE SEDIMENTATION RATE (ESR) Lab Routine Polymyalgia rheumatica syndrome (HCC) Expected: 02/04/2024, Expires: 02/03/2025 documented as of this encounter Visit Diagnoses Diagnosis Polymyalgia rheumatica syndrome (HCC)- Primary Polymyalgia rheumatica documented in this encounter Additional Health Concerns Infection Onset Date Last Indicated Resolved Time COVID - 19 02/25/2024 02/25/2024 02/25/2024 4:10 AM CDT 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 02/25/2024 06/06/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
--- OUTSIDE RECORDS SUMMARY | 2024-12-05 17:33 | XMS_ITS | Encounter Summary ---
Author Organization [facility] Address [address] [place] [address] Phone Care Team Providers Care Manager Project Management Name Role Phone Lianne Stack MD Primary Care Provider [phone] Ryan Figueroa MD Unavailable Gene Russell MD Unavailable [phone] Encounter Details Date Type Department Care Team (Late st Contact Info) Description 04/05/2024 Home Health Resumpti on of Care Planning [facility] [address] [place] [address] Social History Tobacco Use Types Packs/Day Years Used Date Smoking Tobacco: Every Day Cigarettes 1 25.3 Started: 1999 Alcohol Use Standard Drinks/Week Comments No 0 (1 standard drink = 0.6 oz pur e alcohol) [facility] Utilities Answer Date Recorded In the past 12 months has [employer], gas, oil, or water [employer] threatened to shut off services in your home? Patient declined 02/25/2024 Social Connection and Isolation Panel [NHANES] A nswer Date Recorded In a typical week, how many times do you talk on the phone with family, friends, or neighbors? Patient declined 02/25/2024 How often do you get togethe r with friends or relatives? Patient declined 02/25/2024 How often do you attend caodaism or yazdanism serv ices? Patient declined 02/25/2024 Do you belong to any clubs o r organizations such as caodaism groups, unions, fraternal or athletic groups, or school groups? Patient declined 02/25/2024 How often do you attend meet ings of the clubs or organizations you belong to? Patient declined 02/25/2024 Are you , , di vorced, , never , or living with a partner? Patient declined 02/25/2024 AUDIT-C Answer Date Recorded Q1: How often do you have a drink containing alc ohol? Patient declined 02/25/2024 Q2: How many drinks containi ng alcohol do you have on a typical day when you are drinking? Patient declined 02/25/2024 Q3: How often do you have si x or more drinks on one occasion? Patient declined 02/25/2024 Overall Financial Resource Strain (CARDIA) Answe r Date Recorded How hard is it for you to pa y for the very basics like food, housing, medical care, and heating? Patient declined 02/25/2024 [facility] - Occupational Stress Questionnaire Answer Date Recorded Do you feel stress - tense, restless, nervous, or anxious, or unable to sleep at night because your mind is troubled all the time - these days? Patient declined 02/25/2024 Exercise Vital Sign Answer Date Recorde d On average, how many days pe r week do you engage in moderate to strenuous exercise (like a brisk walk)? 0 days 02/25/2024 On average, how many minutes do you engage in exercise at this level? 0 min 02/25/2024 Hunger Vital Sign Answer Date Recorded Within [...] appointments or from getting medications? Patient declined 02/25/2024 In the past 12 months, has l ack of transportation kept you from meetings, work, or from getting things needed for daily living? Patient declined 02/25/2024 Housing Stability Vital Sign Answer Nehemias e [...] place to sleep or slept in a correction (including now)? Patient declined 12/15/2023 Housing Stability Vital Sign Answer Nehemias e Recorded In the last 12 months, was t here a time when you were not able to pay the mortgage or rent on time? Patient declined 02/25/20 24 In the past 12 months, how m any times have you moved where you were living? 1 02/25/2024 At any time in the past 12 m [facility], were you homeless or living in a correction (including now)? 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
--- OUTSIDE RECORDS SUMMARY | 2024-12-05 17:33 | XMS_ITS | Encounter Summary ---
Author Organization [facility] Address [address] [place] [address] Phone Care Team Providers Care Adjudication Specialist Name Role Phone Lianne Stack MD Primary Care Provider [phone] Ryan Figueroa MD Unavailable Gene Russell MD Unavailable Encounter Details Date Type Department Care Team (Late st Contact Info) Description 11/17/2023 Transcribe Orders [facility] Laboratory Services [address] [place] [address] Lianne Stack MD [address] [place] [address] Orthopnea (Primary Dx) Social History Tobacco Use Types [...] Description 12/14/2024 11:30 AM CDT Office Visit [facility] - Pulmonology & Sleep Medicine [facility] [address] [place] [address] Ryan Figueroa MD [address] [place] [phone] documented as of this encounter Results * (ABNORMAL) CMP (COMPREHENSIVE METABOLIC PANEL) (11/17/2023 3:32 PM CDT) Pathologist [facility] SODIUM 138 136 - 145 mmol/L 11/17/2023 5:37 PM CDT [facility] POTASSIUM 4.0 3.5 - 5.1 mmol/L 11/17/2023 5:37 PM CDT [facility] CHLORIDE 103 98 - 107 mmol/L 11/17/2023 5:37 PM CDT [facility] CO2, VENOUS 26 22 - 30 mmol/L 11/17/2023 5:37 PM CDT [facility] ANION GAP 13.0 <18.0 mmol/L 11/17/2023 5:37 PM CDT [facility] GLUCOSE 81 70 - 99 mg/dL 11/17/2023 5:37 PM CDT [facility] BUN 15 10 - 20 mg/dL 11/17/2023 5:37 PM CDT [facility] CREATININE, BLOOD 1.24(H) 0.60 - 1.00 mg/dL 11/17/2023 5:37 PM CDT [facility] BUN/CREATININE RATIO 12 12 - 20 ratio 11/17/2023 5:37 PM CDT [facility] TOTAL PROTEIN 7.1 6.3 - 8.2 g/dL 11/17/2023 5:37 PM CDT [facility] ALBUMIN 3.9 3.5 - 5.0 g/dL 11/17/2023 5:37 PM CDT [facility] A/G RATIO 1.2 1.0 - 2.2 11/17/2023 5:37 PM CDT [facility] CALCIUM 9.9 8.7 - 10.5 mg/dL 11/17/2023 5:37 PM CDT [facility] T BILI 0.3 0.2 - 1.2 mg/dL 11/17/2023 5:37 PM CDT [facility] SGOT (AST) 18 5 - 34 U/L 11/17/2023 5:37 PM CDT [facility] SGPT (ALT) 20 0 - 55 U/L 11/17/2023 5:37 PM CDT [facility] ALKALINE PHOSPHATASE 189(H) 40 - 150 U/L 11/17/2023 5:37 PM CDT [facility] IS THE PATIENT REQUIRED TO BE FASTING? No 11/17/2023 5:37 PM CDT [facility] GFR, ESTIMATED 49(L) >=60 11/17/2023 5:37 PM CDT [facility] Comment: Creatinine Clearance is the preferred criteria for selecting drug dose adjustments in renally impaired patients. The GFR is provided as additional pertinent clinical information. GFR is reported in mL/min/1.73 sq m. Calculation based on the Chronic Kidney Disease Epidemiology Collaboration (CKD- EPI) equation refit without adjustment for race. GFR, EST. 53(L) >=60 024 5:37 PM CDT [facility] GFR, EST. NONAFRICAN 44(L) >=60 11/17/2023 5:37 PM CDT [facility] Blood Venipuncture / Unknown 11/17/2023 3:32 PM CDT 11/17/2023 5:02 PM CDT us Lianne Stack MD CHEMISTRY ORDERABLES Final Re sult [facility] [address] [place] [address] * B-TYPE NATRIURETIC PEPTIDE (BNP) (11/17/2023 3:32 PM CDT) B TYPE NATRIURETIC PEPTIDE 16 <100 pg/mL 11/17/2023 6:30 PM CDT [facility] Blood Venipuncture / Unknown 11/17/2023 3:32 PM CDT 11/17/2023 5:02 PM CDT Lianne Stack MD CHEMISTRY ORDERABLES Final Re sult [facility] [address] [place] [address] documented in this encounter Visit Diagnoses Diagnosis Orthopnea- Primary documented in this encounter Additional Health Concerns Infection Onset Date Last Indicated Resolved Time COVID - 19 02/25/2024 02/25/2024 02/25/2024 4:10 AM CDT 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 02/25/2024 06/06/2024 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
--- OUTSIDE RECORDS SUMMARY | 2024-12-05 17:34 | XMS_ITS | Data Portability ---
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 Plan of Treatment Reminders Order Date Submit Date Provider Last Modified By Organization Details Last Modified Time Details Appointments None recorded. Lab hsv (1+2) igm, serum 2022 023 [facility] (Lab), [address] [place], [address], 3 17:22:39 hsv-1 igg Ab, serum 2022 023 [facility] (Lab), [address] [place], [address], 3 17:22:38 hsv-2 igg Ab, serum 2022 023 [facility] (Lab), [address] [place], [address], 3 17:22:39 hbcab (hepatitis B core Ab) igm, serum 2022 023 [facility] (Lab), [address] [place], [address], 3 17:22:38 HBsAg (hepatitis B surface Ag), serum 2022 023 [facility] (Lab), [address] [place], [address], 3 17:22:37 hepatitis C virus Ab, serum 2022 023 [facility] (Lab), [address], [place], [address], 3 17:22:37 RPR (rapid plasma reagin), serum 2022 023 [facility] (Lab), [address], [place], [address], 3 17:22:38 unlisted lab - HIV 1/2 antigen/ant ibody, reflex confirmatio n 2022 023 [facility] (Lab), [address], [place], [address], 3 17:22:36 Referral None recorded. Procedures None recorded. Surgeries None recorded. Imaging None recorded. Medication Orders nystatin 100,000 unit/gram topical cream 2023 024 [id number], [address], [place], [place], [id number], 4 14:36:37 Valtrex 1 gram tablet 2022 023 [facility] #[id number], [address], [place], [place], [id number], 3 16:08:58 Patient TargetsNo targets recorded. Patient InstructionsNo instructions recorded. Reason for Referral None Reported. Results Created Date Observation Date Name Description Value Unit Range Abnormal Flag Note LastModifiedBy Organization Detail LastModifiedTime 10/14/19 23 10/13/2022 HIV 1/2 ANTIG EN/AN TIBOD Y, REFLE X CONFI RMATI ON HIV antigen/anti body Nonrea ctive nonrea ctive HIV-1 antig en and HIV-1 /HIV- 2 antib odies were not detec joão. No labor atory evide nce of HIV infec tion. Not Available [facility] (Lab) [address], [place], [address], 10/17/2022 17:22:36 10/14/19 23 10/13/2022 HEPAT ITIS C ANTIB ANISH SCREE N, REFLE X TO CONFI RMATI ON hepatitis C antibody Non-re active non-re active Antib odies to HCV Not Detec joão, does not exclu de the possi bilit y of expos ure to HCV. Not Available [facility] (Lab) [address], [place], [address], 10/17/2022 17:22:37 10/14/19 23 10/13/2022 HEPAT ITIS B SURFA CE ANTIG EN hepatitis B surface antigen Non-re active non-re active This assay was perfo rmed using [employer] ratio n reage nts and test kits. Value s obtai isreal with other assay metho ds or kits canno t be used inter benites eably . Not Available [facility] (Lab) [address], [place], [address], 10/17/2022 17:22:37 10/14/19 23 10/13/2022 RPR SCREE N/REF MADISON TITER /FTA RPR screen Nonrea ctive nonrea ctive Not Available [facility] (Lab) [address], [place], [address], 10/17/2022 17:22:37 10/14/19 23 10/13/2022 HEPAT ITIS B CORE, IGM hepatitis B core IgM antibody Negati ve negati ve Not Available [facility] (Lab) [address] [place], [address], 10/17/2022 17:22:38 10/14/19 23 10/13/2022 HERPE S SMPLE X VIRUS TYPE 1 SPECI FIC AB, IGG herpes simplex virus 1 IgG Positi ve negati ve abnormal Not Available [facility] (Lab) [address], [place], [address], 10/17/2022 17:22:38 10/14/19 23 10/13/2022 HERPE S SMPLE X VIRUS TYPE 1 SPECI FIC AB, IGG herpes simplex virus 1 IgG, quant 4.4 ai 0.0-0. 8 high Not Available [facility] (Lab) [address], [place], [address], 10/17/2022 17:22:38 10/14/19 23 10/13/2022 HERPE S SIMPL EX VIRUS TYPE 2 SPECI FIC AB, IGG herpes simplex virus 2 IgG Negati ve negati ve Not Available [facility] (Lab) [address], [place], [address], 10/17/2022 17:22:39 10/14/19 23 10/13/2022 HERPE S SIMPL EX VIRUS TYPE 2 SPECI FIC AB, IGG herpes simples virus 2 IgG, quant <0.2 ai 0.0-0. 8 Not Available [facility] (Lab) [address], [place], [address], 10/17/2022 17:22:39 10/14/19 23 10/13/2022 HERPE S SIMPL EX VIRUS , 1 AND 2 IGM, IFA hsv 1 IgM screen NEGATI VE Not Available [facility] (Lab) [address] [place], [address], 10/17/2022 17:22:39 10/14/19 23 10/13/2022 HERPE S SIMPL EX VIRUS , 1 AND 2 IGM, IFA hsv 2 IgM screen NEGATI VE REFER ENCE RANGE : NEGAT ORTIZ HSV IgM is detec table in serum from >90% of patie nts with prima ry HSV infec tion. Howev er, HSV IgM canno t be relia steven used to diagn ose acute /rece nt infec tion as it is also found in 30% of patie nts with react ivate d HSV. This test may not disti nguis h lidiawe en HSV-1 IgM and HSV-2 IgM due to cross -reac tivit y. To diagn ose acute genit al or mucos al HSV infec tion, direc t detec tion from a malou n by cultu re or zohra rivera ds is prefe rred. HSV IgM posit ivity shoul d be confi rmed by HSV-1 /2 type- speci fic IgG testi ng. This test was devel oped and its hernesto tical perfo rmanc e bianca cteri stics have been deter mined by [employer]stic [employer]. It has not been clear ed or appro alvaro by FDA. This assay has been valid ated pursu ant to the CLIA regul ation s and is used for clini cyn purpo ses. Perfo rming Organ izati on Infor matmaria isabel n: Site ID: EZ Name: [employer] [facility]/Abdelrahman martin [facility] an [place] , Addre ss: [id number] [address] [facility] [place] [address] Direc tor: Niesha segundo MD,Ph D,GENEVIEVE Not Available [facility] (Lab) [address], [place], [address], 10/17/2022 17:22:39 10/14/19 23 10/13/2022 CT/GC AND TRICH OMONA S VAGIN MONTSE (RRNA ), URINE chlamydia trachomatis, PCR Negati ve negati ve Not Available [facility] (Lab) [address], [place], [address], 10/17/2022 17:32:43 10/14/19 23 10/13/2022 CT/GC AND TRICH OMONA S VAGIN MONTSE (RRNA ), URINE neisseria gonorrhoeae, PCR Negati ve negati ve Not Available [facility] (Lab) [address], [place], [address], 10/17/2022 17:32:43 10/14/19 23 10/13/2022 CT/GC AND TRICH OMONA S VAGIN MONTSE (RRNA ), URINE trichomonas vaginalis ribosomal RNA (rrna) Negati ve negati ve Not Available [facility] (Lab) [address], [place], [address], 10/17/2022 17:32:43 10/14/19 23 10/13/2022 CULTU RE: AEROB IC/AN AEROB IC result report SEE RESULT S BELOW abnormal Test: Cultu re: Aerob ic/An aerob ic Speci men Sourc e: Other Speci men Type: Micro biolo gy Speci men Speci men Date: 2022 4:22 PM Resul t Date: 2022 12:31 PM Resul t Statu s: Final resul t Abnor mal: Yes Resul jeffry Lab: [facility] [address] [facility] [address] Tel: CULTU RE ----- ----- ----- --- Moder ate Growt h Methi cilli n-Res istan t Staph yloco ccus [facility]ure[facility] Cultu re sampl es colle cted from sites that are proxi mal to amena l anaer obic kim , do not provi de usefu l infor matio n. The anaer obic porti on of this cultu re has been credi joão. STAIN ----- ----- ----- --- No organ isms seen SUSCE PTIBI LITY ----- ----- ----- --- Methi cilli n-Res istan t Staph yloco ccus aureu s METHO D TARAN ----- ----- ----- ----- ----- ---- ----- ----- ----- ----- ---- CLIND AMYCI N >4 ug/mL Resis tant ERYTH ROMYC IN >4 ug/mL Resis tant GENTA MICIN <=1 ug/mL Susce ptibl e LEVOF LOXAC IN >4 ug/mL Resis tant OXACI LLIN >2 ug/mL Resis tant TETRA CYCLI NE <=1 ug/mL Susce ptibl e TRIME THOPR IM/PEÑA LFAME THOXA ZOLE <=0.5 ug/mL Susce ptibl e VANCO MYCIN 1 ug/mL Susce ptibl e SUSCE PTIBI LITY COMME NTS ----- ----- ----- ----- ----- ----- ----- Methi cilli n-Res istan t Staph yloco ccus aureu s Oxaci llin resis tant Staph yloco cci are resis tant to all curre ntly avail able beta- lacta m antib iotic s, inclu ding penic illin s, beta- lacta angie inhib itor combi natio ns, cepha lospo rins and carba penem s. Not Available [facility] (Lab) [address], [place], [address], 10/17/2022 17:32:44 10/14/19 23 10/13/2022 CULTU RE: HERPE S SIMPL EX VIRUS (HSV) , REFLE X TYPIN G source SWAB Not Available [facility] (Lab) [address], [place], [address], 10/17/2022 17:32:44 10/14/19 23 10/13/2022 CULTU RE: HERPE S SIMPL EX VIRUS (HSV) , REFLE X TYPIN G hsv culture, body fluid NOT ISOLAT ED REFER ENCE RANGE : NOT ISOLA JOÃO labia major a Perfo rming Organ izati on Infor matio n: Site ID: EZ Name: [facility]/Abdelrahman hols [facility] [place] , Addre ss: [id number] [facility] [place] [address] Direc tor: Niesha segundo MD,Ph D,GENEVIEVE Not Available [facility] (Lab) [address] [place], [address], 10/17/2022 17:32:44 Result Notes None recorded. Problems Name Problem SNOMED Code Status Onset Date Resolution Date Notes Provider Name and Address Organization Details Recorded Time Screening for malignant neoplasm of rectum Active 2017 Encounter for screening for malignant neoplasm of rectum;Pr actice ID: [id number] Not Available [facility] 0 15:55:[address] Concept Active 2017 Encntr for sky cap exam (general) (routine) w/o abn findings; Practice ID: [id number] Not Available [facility] 0 15:55:33 Evaluatio n finding Active 2017 Hematuria , unspecifi ed;Practi ce ID: [id number] Not Available [facility] 0 15:55:33 Microscop ic hematuria 455599463 Active 2015 Other microscop ic hematuria ;Practice ID: 0001 Not Available [facility] 0 15:55:33 Specializ ed medical examinati on Active 2011 Routine gynecolog ical examinati on;Practi ce ID: 0001 Not Available [facility] 0 15:55:[address] Concept Active 2015 Encntr for general adult medical exam w/o abnormal findings; Recorded Elsewhere : No Locati on: [facility] [address] So urce: EHR Chron ic: N Practic e ID: 0001 Bill able Time: 01:00:00 PM Not Available [facility] 0 15:55:[address] Concept Active 2015 Well woman check w/ abnormal finding;R ecorded Elsewhere : No Locati on: [facility] [address] So urce: EHR Chron ic: N Practic e ID: 0001 Bill able Time: 01:00:00 PM Not Available [facility] 0 15:55:33 Asymptoma tic microscop ic hematuria 04275068911 229058 Active 2017 Asymptoma tic microscop ic hematuria ;Recorded Elsewhere : No Locati on: [facility] [address] So urce: EHR Chron ic: N Practic e ID: 0001 Bill able Time: 03:15:00 PM Not Available [facility] 0 15:55:33 Reduced libido 5633904 Active 2017 Decreased libido;Re corded Elsewhere : No Locati on: [facility] [address] So urce: EHR Chron ic: N Practic e ID: 0001 Bill able Time: 03:15:00 PM Not Available [facility] 0 15:55:33 Finding of general energy 981209197 Active 2015 Fatigue;R ecorded Elsewhere : No Locati on: [facility] [address] So urce: EHR Chron ic: N Practic e ID: 0001 Bill able Time: 01:00:00 PM Not Available [facility] 0 15:55:34 Problem Notes None recorded. Procedures Surgical History Date Name Laterality Status Provider Name and Address Organization Details Recorded Time hysterectomy completed [facility] 10/13/2022 15:36:18 cholecystectomy completed [facility] 10/13/2022 15:36:25 tonsillectomy completed MONIKA Morris [address], [place], [address], [facility] 07/20/2024 13:00:35 Knee arthroscopy/surgery completed MONIKA Morris [address], [place], [address], [facility] 07/20/2024 13:01:10 excision of cervical intervertebral disc completed MONIKA Morris [address], [place], [address], [facility] 07/20/2024 13:01:35 Elbow arthroscopy completed MONIKA Zuniga [address], [place], [address], [facility] 07/20/2024 13:01:43 Imaging Results None recorded. Procedure Notes None recorded. Medical Equipment None Reported. Allergies Allergen ID Allergen Name Allergen Category Reaction Reaction Severity Criticality Documentation Date Start Date Code Code System Note Provider Name and Address Organization Details Recorded Time [address]108 clarithro mycin medicatio n Not available Not available Not available 07/19/2020 RxNorm React ion: rash , sore joint s; Comme nt: [facility]at [facility] Agent : Biaxi n; Not Available [facility] 0 14:17:58 Biaxin medicatio n Not available Not available Not available 10/13/202249435 9 RxNorm [address] kramer, [facility] 3 15:15:30 gabapenti n medicatio n Not available Not available Not available 10/13/2022 72636 RxNorm Hattie Lopezvioleta r williams, [facility] 3 15:15:39 Medications Name Sig Start Date Stop Date Status Note LastModified by Organization Details LastModified Time amlodipin e 2.5 mg tablet take 1 tablet by oral route every day active Prescrib ed Elsewher e: Yes Loca tion: Lizz zaragoza [facility] odify By: césar coon DateTime : 07/05/20 18 03:15:00 PM Not Available Not Available Not Available amoxicill in 500 mg tablet take 1 tablet by oral route 3 times every day for 3 weeks 07/05 completed Prescrib ed Elsewher e: No Locat ion: Lizz zaragoza [facility] odify By: césar coon DateTime : 10/10/19 16 08:57:53 AM Not Available Not Available Not Available potassium 99 mg tablet 09/30 completed Prescrib ed Elsewher e: Yes Loca tion: Lizz zaragoza [facility] odify By: césar coon DateTime : 07/05/20 18 03:15:00 PM Not Available Not Available Not Available levothyro xine 500 mcg intraveno us powder for solution inject by intraven ous route every day 10/13 completed Prescrib ed Elsewher e: Yes Loca tion: Lizz zaragoza [facility] odify By: johnathan caryer DateTime : 10/01/19 16 01:00:00 PM Not Available Not Available Not Available trazodone 100 mg tablet take 1 tablet by oral route 2 times every day after meals 10/13 completed Prescrib ed Elsewher e: Yes Loca tion: Jailynwhitney mila [facility] odify By: [email or web address] trick En counter DateTime : 06/13/20 12 05:30:00 PM Not Available Not Available Not Available nystatin 100,000 unit/gram topical cream APPLY TO THE AFFECTED AREA(S) BY TOPICAL ROUTE 2 TIMES PER DAY FOR 7 DAYS 2023 active Not Available Not Available Not Avai lable testoster one (bulk) powder apply daily to forearm. 10/13 completed Prescrib ed Elsewher e: No Locat ion: Lizz zaragoza [facility] odify By: alma Odonnell er DateTime : 07/14/20 18 12:22:21 PM Not Available Not Available Not Available Pamelor 10 mg capsule take 1 capsule by oral route every day at bedtime 10/13 completed Prescrib ed Elsewher e: Yes Loca tion: Lizz zaragoza [facility] odify By: césar z Encoun ter DateTime : 07/05/20 18 03:15:00 PM Not Available Not Available Not Available Valtrex 1 gram tablet Take 1 tablet every 12 hours by oral route for 7 days. 2022 active Not Available Not Available Not Avai lable Requip 2 mg tablet take 1 tablet by oral route 3 times every day 10/13 completed Prescrib ed Elsewher e: Yes Loca tion: Lizz zaragoza [facility] odify By: [email or web address] trick En counter DateTime : 06/13/20 12 05:30:00 PM Not Available Not Available Not Available folic acid 1 mg tablet take 1 tablet by oral route every day 10/13 completed Prescrib ed Elsewher e: Yes [facility] By: césar z Encoun ter DateTime : 07/05/20 18 03:15:00 PM Not Available Not Available Not Available Levatol 20 mg tablet take 1 tablet by oral route every day 09/30 completed Prescrib ed Elsewher e: Yes Loca tion: Lizz zaragoza [facility] odify By: johnathan coreasunter DateTime : 06/13/20 12 05:30:00 PM Not Available Not Available Not Available Zoloft 100 mg tablet Take 1 tablet every day by oral route. active Not Available Not Available No t Available lisinopri l 2.5 mg tablet take 1 tablet by oral route every day 10/13 completed Prescrib ed Elsewher e: Yes Loca tion: Lizz zaragoza [facility] odify By: johntahan Zaragoza ncounter DateTime : 10/01/19 16 01:00:00 PM Not Available Not Available Not Available Nifedical XL 60 mg tablet,ex tended release take 1 tablet by oral route every day 09/30 completed Prescrib ed Elsewher e: Yes Loca tion: Lizz zaragoza [facility] odify By: johnathan Zaragoza ncounter DateTime : 06/13/20 12 05:30:00 PM Not Available Not Available Not Available Phenergan 25 mg/mL injection solution inject 1 millilit er by intramus cular route once, may repeat in 2 hours 10/13 completed Prescrib ed Elsewher e: Yes Loca tion: Lizz zaragoza [facility] odify By: césar szymanski Encoun ter DateTime : 07/05/20 18 03:15:00 PM Not Available Not Available Not Available Bactrim DS 800 mg-160 mg tablet Take 1 tablet every 12 hours by oral route for 10 days. 07/20 completed Not Available Not Available Not Available Abilify 15 mg tablet Take 1 tablet every day by oral route. active Not Available Not Available No t Available Antisepti c Skin Cleanser (chlorhex idine) 4 % liquid rinse area with water, apply cleanser and wash, then rinse with water daily 2022 active Not Available Not Available Not Avai lable Fioricet 50 mg-300 mg-40 mg capsule take 1 - 2 capsule by oral route every 4 hours as needed not to exceed 6 capsules per 24hrs 10/13 completed Prescrib ed Elsewher e: Yes Loca tion: Lizz zaragoza [facility] odify By: césar z Encoun ter DateTime : 07/05/20 18 03:15:00 PM Not Available Not Available Not Available Flonase Allergy Relief 50 mcg/actua tion nasal spray,jere pension spray 1 - 2 spray by intranas al route every day in each nostril as needed active Prescrib ed Elsewher e: Yes Loca tion: Lizz zaragoza [facility] odify By: alejandrochult z Encoun ter DateTime : 07/05/20 03:15:00 PM Not Available Not Available Not Available oxygen active Not Available Not Availa ble Not Available levothyro xine 37.5 mcg/mL oral solution Take by oral route. active Not Available Not Available No t Available Vitals Date Recorded Body height Body mass index (BMI) Body weight Systolic blood pressure Diastolic blood pressure Provider Name and Address Organization Details Last Updated DateTime 10/13/2022 165.1 cm 31.3 kg/m2 42967.37 g 130 mm[Hg] 87 mm[Hg] Hattie Wolf [facility] 3 16:00:11 Date Recorded Body height Body mass index (BMI) Body weight Systolic blood pressure Diastolic blood pressure Provider Name and Address Organization Details Last Updated DateTime 07/20/2024 165.1 cm 40 kg/m2 870346.6 1 g 128 mm[Hg] 84 mm[Hg] Pura Fisher [facility] 4 14:17:53 Social History Question Answer Notes LastModified by Organizat ion Details LastModified Time Tobacco Smoking Status Former Smoker Pura Fisher [facility] 07/20/2024 14:21:14 What Is Your Level Of Alcohol Consumption? None Information not available 10/13/2022 Are You Blind Or Do You Have Difficulty Seeing? No Information not available 10/13/2022 Are You Deaf Or Do You Have Serious Difficulty Hearing? No Information not available 10/13/2022 What Type Of Diet Are You Following? REGULAR Information not available 10/13/2022 Sex: Unknown Functional Status Question Answer Note LastModified by Organizat ion Details LastModified Time Do you have difficulty walking or climbing stairs? No Information not available 10/13/2022 Are you able to walk? YESWOREST Information not available 10/13/2022 Are you able to care for yourself? Yes Information not available 10/13/2022 Do you have difficulty dressing or bathing? No Information not available 10/13/2022 What is your exercise level? None Information not available 10/13/2022 Mental Status None recorded. Family History Nothing Reported Notes:Father: Diabetes cody puris, Cancer, lung, Hyperlipidemia, Hypertension Mother: Cancer, breast Sister: Hyperlipidemia, Hypertension, Cancer, breast Medical History Condition Response Allergies (Food, seasonal, environmental ) N Other Y Blood Transfusion N Drug/Latex Allergies/Reactions N Breast Cancer N Dermatologic Disorders Y Lung Disease Y Defects or Inherited Disease N Breast Problem N Gestational Diabetes N Hematologic disorders N Anesthesia Complications N History of STI N Deep Vein Thrombosis N Polycystic ovary syndrome N Anxiety Disorder N Autoimmune disease N Arthritis N Infertility N Polyps N Acid Reflux (GERD) Y History of abnormal pap N Cancer N Stroke N Varicosities N Neurologic/Epilepsy N Endometriosis N High Cholesterol N Headaches Y Fibromyalgia N Kidney Disease N Heart Problems N Kidney or Bladder Problems N Thyroid Problems Y GI Problems Y Eating Disorder N Anemia N Art (IVF or FET) N Psychiatric Illness N Ovarian Cancer N Diabetes N Pulmonary (TB, Asthma) N Hepatitis/Liver Disease N No Past Medical History N Eczema N Urinary Tract Infection N Abuse/Domestic Violence N Asthma N Trauma/Violence N Depression/ depression Y Heart Disease N Pre-Eclampsia N Hypertension Y Osteoporosis N Thrombophilias N Gynecological History Statement/Question Response STIs/STDs N Age of first menstrual cycle 14 HPV Vaccine N Date of Last Pap Smear Sexual Problems? N Current Control Method Hysterectom y Sexually Active? Y Obstetrics History GPAL:G 3 P 0 0 0 3 Type Value Living 3 Total 3 Past Encounters Encounter ID Performer Location Encounter Start Date Encounter Closed Date Diagnosis/Indication Diagnosis SNOMED-CT Code Diagnosis ICD10 Code Diagnosis Note [id number] MONIKA Morris [place] [address] [address] 10/13/2022 14:55:35 10/13/2022 16:13:58 Lesion of vulva 324580805 N90.89 HSV appearing lesionHSV PCR sentCultur e sentWe agreed to start valtrex course for presumptiv e HSV, discussed R/B/A of medication Urine STI testing sentBlood STI panel orderedTo notify the office with any worsening symptoms, s/sx's of infectionE D precaution s discussedN o IC with active outbreak, condom use encouraged otherwiseW ill update patient with results when available Time spent in visit is a total of 30 mins with at least 50% of visit consisting of counseling and review of plan of care. Venereal d isease screening 953834881 Z11.3 Sexually t ransmitted infectious disease 8741154 A64 [id number] MONIKA Morris [place] [address] [address] 07/20/2024 14:02:08 07/20/2024 14:59:04 Vulval irritation 905117604 N90.89 Candidiasis of skin 4988 3006 B37.2 vaginitis panel sentcx sentrx for nystatin creamavoid skin irritants, keep skin clean/dryh as upcoming appointmen t with dermatolog y for further management - encouraged pt to attend this appointmen t. Questions answered Time spent in visit is a total of 20 mins with at least 50% of visit consisting of counseling and review of plan of care. History of methicillin resistant Staphylococcus aureus infection 276030516 Z86.14 Health Concerns Section Related Observation LastModified by Organization Detai ls LastModified Time None Recorded Concern Status LastModified by Organization Details LastModified Time None Recorded Advance Directives Directive None Recorded Payers Encounter Date Sequence Insurance Name Policy Number Policy Jackson Covered Member ID Jackson Member ID Guarantor Name 10/13/[address] [facility] ON OR AFTER 01/30/21 (MEDICAID REPLACEMENT - HMO) Sunita L [place] [id number] Sunita L [place] 07/20/[address] [facility] ON OR AFTER 01/30/21 (MEDICAID REPLACEMENT - HMO) Sunita L [place] [id number] Sunita L [place] Notes Date Note Type Note Provider Name and Address Organization Details Recorded Time 10/13/2022 text/html 62yoPresents for evaluation of vulvar lesionSymptoms started about 1 week agoLesion is tender to touch, blister likeRecently SA again with ex husbandDenies any vaginal d/c, itching, n/v/f, plevic pain, urinary symptoms, or flu-like symptomsStates she has a hx of MRSA on her face about 1 year agoMedical hx : HTN, hypothyroidism, COPDHx of hyst MONIKA Morris [address], [place], [address], [facility] 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 Has been using nystatin powder from her PCP.was in the hospital for COPD exacerbation last monthh/o MRSA on face in 2021 and vulvar lesion in 2022has appointment with dermatology coming up MONIKA Morris [address], [place], [address], [facility] 07/20/2024 14:58:48 OBGyn Episode Ob Episode Information Episode Created Date Number of Fetuses Patient Bloodtype Patient rh Status Prepregnancy Weight lbs Domestic Partner Domestic Partner Phone Father Name Flaker Operator Status 10/14/19 23 1 CLOSED Fetus Data First Name Last Name Admitted to NICU Weight (g) Sex Living Outcome Pediatric Complications Fetus ID Race Codes Race Delivery Type [phone] M [id number] Vaginal Delivery Larry Calculation Initial Larry Date Initial Exam Date Initial Exam Provider Initial Ultrasound Date Last Menstrual Period Date Ultra Sound Weeks Gestation 0 Eighteen To Twenty Week Larry Update Ultra Sound Date Fundal Height At Umbil Quickening Date Ultra Sound Latest Weeks Gestation Final Larry Confirmed By Final Larry Confirmed Date Final Larry Date Ultra Sound Latest Days Gestation 0 0 Menstrual History Last Menstrual Date Menses Monthly On Bcp Conception Prior Menses Frequency Hcg Plus Date Menarche Onset Age Delivery Information Delivery Date Delivery Type Labor Anesthesia Weeks Gestation Incision Type Labor Labor Length Hrs Delivered By Post Complications Tubal Sterilization Discharge Date Comments 3 Discharge Information Feeding Method Contraceptive Method Maternal HG B and HCT Levels Ob Episode Information Episode Created Date Number of Fetuses Patient Bloodtype Patient rh Status Prepregnancy Weight lbs Domestic Partner Domestic Partner Phone Father Name Flaker Operator Status 10/14/19 23 1 CLOSED Fetus Data First Name Last Name Admitted to NICU Weight (g) Sex Living Outcome Pediatric Complications Fetus ID Race Codes Race Delivery Type [phone] [id number] Vaginal Delivery Larry Calculation Initial Larry Date Initial Exam Date Initial Exam Provider Initial Ultrasound Date Last Menstrual Period Date Ultra Sound Weeks Gestation 0 Eighteen To Twenty Week Larry Update Ultra Sound Date Fundal Height At Umbil Quickening Date Ultra Sound Latest Weeks Gestation Final Larry Confirmed By Final Larry Confirmed Date Final Larry Date Ultra Sound Latest Days Gestation 0 0 Menstrual History Last Menstrual Date Menses Monthly On Bcp Conception Prior Menses Frequency Hcg Plus Date Menarche Onset Age Delivery Information Delivery Date Delivery Type Labor Anesthesia Weeks Gestation Incision Type Labor Labor Length Hrs Delivered By Post Complications Tubal Sterilization Discharge Date Comments 0 Discharge Information Feeding Method Contraceptive Method Maternal HG B and HCT Levels Ob Episode Information Episode Created Date Number of Fetuses Patient Bloodtype Patient rh Status Prepregnancy Weight lbs Domestic Partner Domestic Partner Phone Father Name Flaker Operator Status 10/14/19 23 1 CLOSED Fetus Data First Name Last Name Admitted to NICU Weight (g) Sex Living Outcome Pediatric Complications Fetus ID Race Codes Race Delivery Type [phone] F [id number] Vaginal Delivery Larry Calculation Initial Larry Date Initial Exam Date Initial Exam Provider Initial Ultrasound Date Last Menstrual Period Date Ultra Sound Weeks Gestation 0 Eighteen To Twenty Week Larry Update Ultra Sound Date Fundal Height At Umbil Quickening Date Ultra Sound Latest Weeks Gestation Final Larry Confirmed By Final Larry Confirmed Date Final Larry Date Ultra Sound Latest Days Gestation 0 0 Menstrual History Last Menstrual Date Menses Monthly On Bcp Conception Prior Menses Frequency Hcg Plus Date Menarche Onset Age Delivery Information Delivery Date Delivery Type Labor Anesthesia Weeks Gestation Incision Type Labor Labor Length Hrs Delivered By Post Complications Tubal Sterilization Discharge Date Comments 5 Discharge Information Feeding Method Contraceptive Method Maternal HG B and HCT Levels
--- OUTSIDE RECORDS SUMMARY | 2024-12-05 17:34 | XMS_ITS | Clinical Summary ---
Author Organization [facility] Address [address] [place] [address] Care Team Providers Care Concrete Finisher Apprentice Name Role Phone Lianne Stack MD Primary Care Provider [phone] Ryan Figueroa MD Unavailable Gene Russell MD Unavailable [phone] Allergies Active Allergy Reactions Criticality Noted Date Comments Clarithromycin Other (see Comments) 08/28/2015 JOINTS SWELL Gabapentin Other (see Comments) 12/15/2023 Joints swell Medications albuterol 108 (90 Base) MCG/ACT Aerosol Solution take 2 Puffs by inhalation every 4 hours as needed. Active ARIPiprazole (ABILIFY) 10 MG Tablet Take 15 mg by mouth nightly. Active cyclobenzaprine (FLEXERIL) 10 MG Tablet Take 10 mg by mouth 3 times daily as needed. Active sertraline (ZOLOFT) 100 MG Tablet Take 100 mg by mouth nightly. Active atorvastatin (LIPITOR) 40 MG Tablet Take 40 mg by mouth daily. 02/10/20 23 Active clobetasol (TEMOVATE) 0.05 % Cream Apply 2 times daily as needed for Other. Elbows and knees Active irbesartan (AVAPRO) 150 MG Tablet Take 1 Tablet by mouth daily. 11/03/19 24 Active pantoprazole (Protonix) 40 MG Pack Take 40 mg by mouth daily. Active OXYGEN CONCENTRATOR 4 Units/L by Does not apply route continuous. 4L via nasal canula Active Umeclidinium-Srini anterol (ANORO ELLIPTA) 62.5-25 MCG/ACT AEROSOL POWDER, BREATH ACTIVATEDIndicat ions:Other emphysema (HCC) take 1 Puff by inhalation daily. 30 Each 3 01/07/20 24 Active DULoxetine (CYMBALTA) [address] Particles Take 60 mg by mouth daily. 02/04/20 24 Active levothyroxine (SYNTHROID) 125 MCG Tablet Take 150 mcg by mouth every morning (before breakfast). Active hydrOXYzine (VISTARIL) 50 MG Capsule Take 1 Capsule by mouth 3 times daily as needed for Anxiety. Active naloxone HCl (Narcan) 4 MG/0.1ML Liquid 1 [place] by Nasal route as needed for Opioid Reversal. Administer in one nostril for symptoms of overdose (severe sleepiness, breathing problems, not responsive). Call 911. May repeat 1 spray in alternate nostril in 2-3 minutes if needed. 2 Each 06/03/20 24 Active cloNIDine (CATAPRES) 0.1 MG Tablet Take 0.1 mg by mouth daily as needed. Active Deutetrabenazine 9 MG Tablet Take 1 Tablet by mouth 2 times daily. Active famotidine (PEPCID) 20 MG Tablet Take 1 Tablet by mouth 2 times daily. 90 Tablet 10/12/19 25 Active oxyCODONE-acetam inophen (PERCOCET) 5-325 MG TabletIndication s:Fibromyalgia,P olymyalgia rheumatica (HCC) Take 1 Tablet by mouth every 6 hours as needed for Moderate or more severe pain. 24 Tablet 10/27/19 25 Active pregabalin (LYRICA) 75 MG CapsuleIndicatio ns:Fibromyalgia, Polymyalgia rheumatica (HCC) Take 1 Capsule by mouth 2 times daily. 60 Capsule 10/27/19 25 Active rOPINIRole (REQUIP) 1 MG TabletIndication s:Restless legs syndrome (RLS) TAKE 1 TABLET BY MOUTH EVERY NIGHT 90 Tablet 11/11/19 25 Active rOPINIRole (REQUIP) 1 MG TabletIndication s:Restless legs syndrome (RLS) TAKE 1 TABLET BY MOUTH EVERY NIGHT 90 Tablet 07/10/20 24 025 Discontinued tamsulosin (FLOMAX) 0.4 MG Capsule Take 1 Capsule by mouth every morning for 14 days. 14 Capsule 10/28/19 25 025 amLODIPine (NORVASC) 5 MG Tablet Take 1 Tablet by mouth daily for 30 days. 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/2023 Other emphysema 01/29/2023 JULIAN (obstructive sleep apnea) 01/29/2023 Gastroesophageal reflux disease without esophagi tis 01/29/2023 Restless legs syndrome (RLS) 01/29/2023 TIA (transient ischemic attack) Thyroid disease Overview (02/25/2024): HYPOTHYROIDISM COPD (chronic obstructive pulmonary disease) Fibromyalgia Seizure Overview (02/25/2024): seizure like actvity Resolved Problems Problem Noted Date Diagnosed Date Resolved Date COPD with acute exacerbation 06/03/2024 06/06/2024 Acute on chronic respiratory failure with hypoxia 02/25/2024 06/15/2024 Tobacco use disorder, continuous 12/17/2023 01/03/2024 COPD exacerbation 12/15/2023 12/17/2023 Tobacco use disorder 01/29/2023 024 Encounters Date Type Department Care Team Description 11/10/2024 Refill [facility] - Pulmonology & [facility] Medicine [facility] [address] [place] [address] Ryan Figueroa MD Medication Refill 11/01/2024 Telephone [facility] [address] [place] [address] Prerna Pereira Patient Outreach 11/01/2024 Telephone [facility] [address] [place] [address] Savi Irving Patient Outreach 10/26/2024 6:49 PM CDT - 10/26/2024 11:28 PM CDT Emergency [facility] Emergency [address] [place] [phone] Mathew Bower, PAC Chronic respiratory failure Discharge Disposition: Discharged to home or Selfcare 10/26/2024 Travel 10/24/2024 Results Follow-Up [facility] - Gastroenterology - [place] [address] [place] [id number] Cecilia Mai, ALBERTINA Pathology Surgical 10/22/2024 11:31 PM CDT - 10/26/2024 5:07 PM CDT Hospital Encounter [facility] Medical/Surgical Intensive Care [address] [place] [phone] Jim Garrido MD Krishna, Khoa Heath MD [facility] [place], Jina Gonzáles MD Hypoxia Discharge Disposition: Discharged/Transfe rred to an ICF 10/22/2024 Travel 10/16/2024 Documentation Only [facility] Rehab at [facility] [address], [place] [address] [place] [phone] Cecile Munoz, PT Chronic bilateral low back pain without sciatica (Primary Dx); Decreased functional mobility and endurance 10/11/2024 10:35 AM CDT Ancillary [facility] Main [address] [place] [address] Manjinder Herrera MD 10/11/2024 10:30 AM CDT Ancillary [facility] Main [address] [place] [address] Manjinder Herrera MD 10/11/2024 10:18 AM CDT Anesthesia Event [facility] Gi Lab Periop [address] [place] [address] Clay Wyatt APRN, DOTTIE 10/11/2024 10:00 AM CDT - 10/11/2024 10:30 AM CDT Surgery [facility] Gi Lab Periop [address] [place] [address] Manjinder Herrera MD EGD WITH DILATION- DUODENUM BIOPSY RULE OUT H. PYLORI, ANTRAL BIOPSY RULE OUT H. PYLORI, 7 CM HIATAL HERNIA 10/08/2024 7:52 PM CDT - 10/11/2024 6:49 PM CDT Hospital [facility] Med Surg [address] [place] [address] Jim Garrido MD Dianati, Behfar, MD COPD exacerbation (HCC) Discharge Disposition: Discharged to home or Selfcare 10/08/2024 Travel 09/29/2024 Telephone [facility] [address], [place] [address] [phone] Shane Rehman, SENIOR PRIVATE CLIENT ADVISOR No Show (2nd no show (unable to contact pt)) 09/08/2024 1:00 PM RECOVERY ASSISTANT Physical Therapy [facility] [address], [place] [address] [phone] Lianne Stack MD Bogowith, Kelly A, PT Chronic low back pain without sciatica (Primary Dx); Decreased functional mobility and endurance; Chronic low back pain, unspecified back pain laterality, unspecified whether sciatica present Discharge Disposition: Discharged to home or Selfcare 09/08/2024 Plan of Care Documentation [facility] [address], [place] [address] [phone] 09/07/2024 Travel from Last 3 Months Immunizations Immunization Administration Dates Next Due Covid-19, Mrna, Lnp-s, Pf, 30 Mcg/0.3 Ml Dose (P fizer) 04/09/2021 Family History Medical History Relation Name Comments Emphysema Father Hypertension Father Breast Cancer Mother Cancer Mother Relation Name Status Comments Father Alive Mother Social History Tobacco Use Types Packs/Day Years Used Date Smoking Tobacco: Former Cigarettes 1 25.3 S tarted: 1999 Tobacco Cessation:Counseling Given: Not Answered Alcohol Use Standard Drinks/Week Comments No 0 (1 standard drink = 0.6 oz pur e alcohol) [facility] Utilities Answer Date Recorded In the past 12 months has th e electric, gas, oil, or water company threatened to shut off services in your home? No 10/23/2024 Social Connection and Isolation Panel [NHANES] A nswer Date Recorded In a typical week, how many times do you talk on the phone with family, friends, or neighbors? Patient declined 10/23/2024 How often do you get togethe r with friends or relatives? Patient declined 10/23/2024 How often do you attend confucianist or jainism serv ices? Never 10/23/2024 Do you belong to any clubs o r organizations such as confucianist groups, unions, fraternal or athletic groups, or school groups? Patient declined 10/23/2024 How often do you attend meet ings of the clubs or organizations you belong to? Never 10/23/2024 Are you , , di vorced, , never , or living with a partner? 10/23/2024 AUDIT-C Answer Date Recorded Q1: How often do you have a drink containing alc ohol? Patient declined 10/23/2024 Q2: How many drinks containi ng alcohol do you have on a typical day when you are drinking? Patient declined 10/23/2024 Q3: How often do you have si x or more drinks on one occasion? Patient declined 10/23/2024 Overall Financial Resource Strain (CARDIA) Answe r Date Recorded How hard is it for you to pa y for the very basics like food, housing, medical care, and heating? Not hard at all 10/23/2024 [facility] - Occupational Stress Questionnaire Answer Date Recorded Do you feel stress - tense, restless, nervous, or anxious, or unable to sleep at night because your mind is troubled all the time - these days? Patient declined 10/23/2024 Exercise Vital Sign Answer Date Recorde d On average, how many days pe r week do you engage in moderate to strenuous exercise (like a brisk walk)? Patient declined On average, how many minutes do you engage in exercise at this level? Patient declined 10/23/2024 Hunger Vital Sign Answer Date Recorded Within the past 12 months, y ou worried that your food would run out before you got the money to buy more. Never true 10/24/19 Within the past 12 months, t he food you bought just didn't last and you didn't have money to get more. Never true 10/23/2024 PRAPARE - Transportation Answer Date Re corded In the past 12 months, has l ack of transportation kept you from medical appointments or from getting medications? No 10/01 In the past 12 months, has l ack of transportation kept you from meetings, work, or from getting things needed for daily living? No 10/23/2024 Housing Stability Vital Sign Answer Nehemias e Recorded In the last 12 months, was t here a time when you were not able to pay the mortgage or rent on time? Patient declined 12/15/19 In the last 12 months, how many places have you lived? 1 12/15/2023 In the last 12 months, was t here a time when you did not have a steady place to sleep or slept in a retirement (including now)? Patient declined 12/15/2023 Housing Stability Vital Sign Answer Nehemias e Recorded In the last 12 months, was t here a time when you were not able to pay the mortgage or rent on time? No 10/23/2024 In the past 12 months, how m any times have you moved where you were living? 0 10/23/2024 At any time in the past 12 m [facility], were you homeless or living in a retirement (including now)? No 10/23/2024 Sexually Active Control Partners Comments Not Currently Comments No Sex and Gender Information Value Date Recorded Sex Assigned at Not on file Legal Sex Female 9:25 PM CDT Gender Identity Not on file Sexual Orientation Not on file Last Filed Vital Signs Vital Sign Reading Time Taken Comments Blood Pressure 134/90 10/26/2024 11:00 PM CDT Pulse 101 10/26/2024 11:00 PM CDT Temperature 36.9 C (98.5 F) 10/26/2024 6:55 PM CDT Respiratory Rate 19 10/26/2024 11:00 PM CDT Oxygen Saturation 90% 10/26/2024 11:00 PM CDT Inhaled Oxygen Concentration - - Weight 113.4 kg (250 lb) 10/26/2024 6:58 PM CDT Height 170.2 cm (5' 7 ) 10/26/2024 6:58 PM CDT Body Mass Index 39.16 10/26/2024 6:58 PM CDT Plan of Treatment Upcoming Encounters Date Type Department Care Team (Late st Contact Info) Description 12/14/2024 11:30 AM CDT Office Visit [facility] - Pulmonology & [facility] [address] [place] [address] Ryan Figueroa MD [address] [place] [address] Health Maintenance Due Date Last Done Comments Pneumococcal Immunization (50+ years) (1 of 2 - PCV) 1980 Cologuard 2011 Immunochemical Fecal Occult Blood 2011 Zoster Immunization (1 of 2) 2011 Colonoscopy 06/19/2020 06/19/2010 Colorectal Cancer Screening 06/19/2020 Mammogram 03/18/2021 03/18/2020 Respiratory Syncytial Virus (RSV) Immunization (Adult) (1 - Risk 60-74 years 1-dose series) 2021 SARS-COV-2 Immunization (2 - season) 2024 04/09/2021 Influenza Immunization (Season Ended) 2025 06/19/2010 DTaP/Tdap/Td Immunization Discontinued 06/05/2016 TdaP Immunization Completed 06/05/2016 Hepatitis C Virus (HCV) Screening Completed 10/13/2022, 06/08/2019 Lung Cancer Screening Discontinued 10/23/2024 , 03/03/2023, 02/06/2023, Additional history exists Hepatitis B Immunization Aged Out No longer eligible based on patient's age to complete this topic Meningococcal Immunization (ACWY) Aged Out No longer eligible based on patient's age to complete this topic Rotavirus Immunization Aged Out No lo nger eligible based on patient's age to complete this topic Medical Devices Implanted Type Area Tank Hoop Bender Device Identifier Shelf Expiration Date Model / Serial / Lot L Knee Procedures Procedure Name Priority Date/Time Associated Diagnosis Comments XR CHEST SINGLE VIEW PORTABLE STAT 8:05 PM CDT CBC WITH AUTO DIFFERENTIAL STAT 10/26 7:09 PM CDT B-TYPE NATRIURETIC PEPTIDE (BNP) STAT 10/26/2024 7:09 PM CDT TROPONIN I, HIGH SENSITIVITY (HSTRP) STAT 10/26/2024 7:09 PM CDT MAGNESIUM (MG) STAT 10/26/2024 7:09 PM CDT CMP (COMPREHENSIVE METABOLIC PANEL) STAT 10/26/2024 7:09 PM CDT COMPLETE BLOOD COUNT (CBC) WITH DIFF STAT 10/26/2024 7:09 PM CDT EKG 12 LEAD STAT 10/26/2024 6:49 PM CDT CBC WITH AUTO DIFFERENTIAL Routine 10/26 4:40 AM CDT COMPLETE BLOOD COUNT (CBC) WITH DIFF Routine 10/26/2024 4:40 AM CDT BASIC METABOLIC PANEL W/ CALCIUM TOTAL Routine 10/26/2024 4:40 AM CDT EKG SCAN 10/26/2024 12:00 AM CDT RHYTHM STRIP 10/26/2024 12:00 AM CDT RHYTHM STRIP 10/26/2024 12:00 AM CDT CBC WITH AUTO DIFFERENTIAL Routine 10/25 5:23 AM CDT COMPLETE BLOOD COUNT (CBC) WITH DIFF Routine 10/25/2024 5:23 AM CDT BASIC METABOLIC PANEL W/ CALCIUM TOTAL Routine 10/25/2024 5:23 AM CDT RHYTHM STRIP 10/25/2024 12:00 AM CDT RHYTHM STRIP 10/25/2024 12:00 AM CDT RHYTHM STRIP 10/25/2024 12:00 AM CDT MRI L-SPINE W/O CONTRAST Routine 025 12:42 PM CDT CBC WITH AUTO DIFFERENTIAL Routine 10/24 6:52 AM CDT COMPLETE BLOOD COUNT (CBC) WITH DIFF Routine 10/24/2024 6:52 AM CDT BASIC METABOLIC PANEL W/ CALCIUM TOTAL Routine 10/24/2024 6:52 AM CDT RHYTHM STRIP 10/24/2024 12:00 AM CDT RHYTHM STRIP 10/24/2024 12:00 AM CDT RHYTHM STRIP 10/24/2024 12:00 AM CDT RHYTHM STRIP 10/24/2024 12:00 AM CDT XR LUMBAR SPINE 2 OR 3 VIEWS Routine 4:58 PM CDT AEROSOL NEBULIZER-INITIAL Routine 2024 11:29 AM CDT PROCALCITONIN Routine 10/23/2024 9:[address] ANGIO CHEST W/WO ABDOMEN PELVIS W CONTRAST Stat with Interpretation 10/23/2024 3:24 AM CDT URINALYSIS REFLEX IF INDICAT ED BY ABNORMAL RESULTS STAT 10/23/2024 2:32 AM CDT XR CHEST SINGLE VIEW PORTABLE STAT 12:46 AM CDT RSV,SARS-COV-2,INFLUENZA A&B BY PCR STAT 10/23/2024 12:20 AM CDT BLOOD GASES, ARTERIAL W/ O2 SATURATION STAT 10/23/2024 12:06 AM CDT CULTURE, BLOOD STAT 10/23/2024 12:05 AM CDT RHYTHM STRIP 10/23/2024 12:00 AM CDT RHYTHM STRIP 10/23/2024 12:00 AM CDT GOLD TOP TUBE STAT 10/22/2024 11:57 PM CDT BLUE TOP TUBE STAT 10/22/2024 11:57 PM CDT CBC WITH AUTO DIFFERENTIAL STAT 10/22 11:57 PM CDT EXTRA TUBES STAT 10/22/2024 11:57 PM CDT LACTIC ACID (LACTATE) STAT 10/22/2024 11:57 PM CDT CMP (COMPREHENSIVE METABOLIC PANEL) STAT 10/22/2024 11:57 PM CDT COMPLETE BLOOD COUNT (CBC) WITH DIFF STAT 10/22/2024 11:57 PM CDT CULTURE, BLOOD STAT 10/22/2024 11:57 PM CDT CRITICAL CARE Routine 10/22/2024 11:55 PM CDT EKG 12 LEAD STAT 10/22/2024 11:39 PM CDT EKG SCAN 10/22/2024 12:00 AM CDT PATHOLOGY SURGICAL Routine 10/11/2024 10:24 AM CDT GI LAB IMAGING - EGD Routine 10/11/2024 10:19 AM CDT MS ESOPHAGOGASTRODUODENOSCOP Y TRANSORAL DIAGNOSTIC 10/11/2024 10:18 AM CDT EGD WITH DILATION- DUODENUM BIOPSY RULE OUT H. PYLORI, ANTRAL BIOPSY RULE OUT H. PYLORI, 7 CM HIATAL HERNIA MS EGD FLEXIBLE TRANSNASAL D X W/COLLJ SPEC BR/WA 10/11/2024 10:18 AM CDT EGD WITH DILATION- DUODENUM BIOPSY RULE OUT H. PYLORI, ANTRAL BIOPSY RULE OUT H. PYLORI, 7 CM HIATAL HERNIA GI LAB IMAGING - EGD STAT 10/11/2024 10:15 AM CDT CBC WITH AUTO DIFFERENTIAL Routine 10/11 4:46 AM CDT COMPLETE BLOOD COUNT (CBC) WITH DIFF Routine 10/11/2024 4:46 AM CDT BASIC METABOLIC PANEL W/ CALCIUM TOTAL Routine 10/11/2024 4:46 AM CDT RHYTHM STRIP 10/11/2024 12:00 AM CDT RHYTHM STRIP 10/11/2024 12:00 AM CDT RHYTHM STRIP 10/11/2024 12:00 AM CDT ADULT TRANS THORACIC ECHO 2D COMPLT W CONT Routine 10/10/2024 3:46 PM CDT B-TYPE NATRIURETIC PEPTIDE (BNP) Routine 10/10/2024 1:47 PM CDT CBC WITH AUTO DIFFERENTIAL Routine 10/10 5:11 AM CDT COMPLETE BLOOD COUNT (CBC) WITH DIFF Routine 10/10/2024 5:11 AM CDT BASIC METABOLIC PANEL W/ CALCIUM TOTAL Routine 10/10/2024 5:11 AM CDT RHYTHM STRIP 10/10/2024 12:00 AM CDT RHYTHM STRIP 10/10/2024 12:00 AM CDT RHYTHM STRIP 10/10/2024 12:00 AM CDT RHYTHM STRIP 10/10/2024 12:00 AM CDT AEROSOL NEBULIZER-INITIAL Routine 2024 9:19 AM CDT CBC WITH AUTO DIFFERENTIAL Routine 10/09 3:56 AM CDT HEMOGLOBIN A1C W/ ESTIMATED GLUCOSE Routine 10/09/2024 3:56 AM CDT BASIC METABOLIC PANEL W/ CALCIUM TOTAL Routine 10/09/2024 3:56 AM CDT COMPLETE BLOOD COUNT (CBC) WITH DIFF Routine 10/09/2024 3:56 AM CDT THYROID STIMULATING HORMONE (TSH) Routine 10/09/2024 3:56 AM CDT RHYTHM STRIP 10/09/2024 12:00 AM CDT RHYTHM STRIP 10/09/2024 12:00 AM CDT RHYTHM STRIP 10/09/2024 12:00 AM CDT TROPONIN I, HIGH SENSITIVITY (HSTRP) STAT 10/08/2024 9:18 PM CDT AEROSOL NEBULIZER-INITIAL STAT 2024 8:44 PM CDT BLOOD GASES, ARTERIAL W/ O2 SATURATION STAT 10/08/2024 8:31 PM CDT CRITICAL CARE Routine 10/08/2024 8:20 PM CDT XR CHEST SINGLE VIEW PORTABLE STAT 8:15 PM CDT GOLD TOP TUBE STAT 10/08/2024 8:13 PM CDT BLUE TOP TUBE STAT 10/08/2024 8:13 PM CDT CBC WITH AUTO DIFFERENTIAL STAT 10/08 8:13 PM CDT EXTRA TUBES STAT 10/08/2024 8:13 PM CDT MAGNESIUM (MG) STAT 10/08/2024 8:13 PM CDT TROPONIN I, HIGH SENSITIVITY (HSTRP) STAT 10/08/2024 8:13 PM CDT CMP (COMPREHENSIVE METABOLIC PANEL) STAT 10/08/2024 8:13 PM CDT COMPLETE BLOOD COUNT (CBC) WITH DIFF STAT 10/08/2024 8:13 PM CDT RSV,SARS-COV-2,INFLUENZA A&B BY PCR STAT 10/08/2024 8:07 PM CDT EKG 12 LEAD STAT 10/08/2024 7:58 PM CDT EKG SCAN 10/08/2024 12:00 AM RECOVERY ASSISTANT RHYTHM STRIP 10/08/2024 12:00 AM RECOVERY ASSISTANT HM COLONOSCOPY Routine 06/19/2010 from Last 3 Months or Most Recently Relevant to Health Maintenance Results * XR CHEST SINGLE VIEW PORTABLE (10/26/2024 8:05 PM CDT) Only the most recent of3 resultswithin the time period is included. Anatomical Region Laterality Modality Chest N/A Computed Radiogr aphy 10/26/2024 8:43 PM CDT Impressions 10/26/2024 8:45 PM CDT IMPRESSION: No acute cardiopulmonary abnormality. Narrative 10/26/2024 8:45 PM CDT EXAM DESCRIPTION: XR CHEST SINGLE VIEW PORTABLE REASON FOR STUDY: pt was discharger today and found at rehab center with elevated BP and difficulty breathing. hx of COPD and HTN TECHNIQUE: Single radiographic view(s) of the chest. COMPARISON: 10/23/2024 FINDINGS: LUNGS: Allowing for overlying soft tissues, the lungs appear grossly clear. No consolidation or effusion is seen. HEART/MEDIASTINUM: Cardiac silhouette normal in size. Mediastinal and hilar contours appear normal. LINES/TUBES: None. BONES: No acute osseous abnormality. THIS IS AN ELECTRONICALLY VERIFIED FINAL REPORT 10/26/2024 8:43 PM - Electronically signed by Clay Garnica M.D. KH: EDDIE Report ID: [id number] Reading Location: [place] [address] Procedure Note Clay Garnica MD - 10/26/2024 EXAM DESCRIPTION: XR CHEST SINGLE VIEW PORTABLE REASON FOR STUDY: pt was discharger today and found at rehab center with elevated BP and difficulty breathing. hx of COPD and HTN TECHNIQUE: Single radiographic view(s) of the chest. COMPARISON: 10/23/2024 FINDINGS: LUNGS: Allowing for overlying soft tissues, the lungs appear grossly clear. No consolidation or effusion is seen. HEART/MEDIASTINUM: Cardiac silhouette normal in size. Mediastinal and hilar contours appear normal. LINES/TUBES: None. BONES: No acute osseous abnormality. THIS IS AN ELECTRONICALLY VERIFIED FINAL REPORT 10/26/2024 8:43 PM - Electronically signed by Clay Garnica M.D. KH: EDDIE Report ID: [id number] Reading Location: [id number] IMPRESSION: No acute cardiopulmonary abnormality. Mathew Bower PAC IMG DIAGNOSTIC ORDER GHANSHYAM Final Result * TROPONIN I, HIGH SENSITIVITY (HSTRP) (10/26/2024 7:09 PM CDT) Only the most recent of3 resultswithin the time period is included. Pathologist [facility] TROPONIN I, HIGH SENSITIVITY- LINO <3 <=14 ng/L 10/26/2024 7:55 PM CDT [facility] Comment: High-sensitivity troponin I results are reported in ng/L making the result appear to be 1,000 times higher than the contemporary troponin I value which is reported in ng/ml. Results from [place]. Blood Venipuncture / Unknown 10/26/2024 7:09 PM CDT 10/26/2024 7:21 PM CDT Mathew Bower [facility] CHEMISTRY ORDERABLES Final Result [facility] [address] [place] [address] * (ABNORMAL) CBC with Auto Differential (10/26/2024 7:09 PM CDT) Only the most recent of9 resultswithin the time period is included. Pathologist [facility] WBC 11.84 4.00 - 12.00 10(3)/mcL 10/26/2024 8:05 PM CDT [facility] RBC 4.36 3.80 - 5.30 10(6)/mcL 10/26/2024 8:05 PM CDT [facility] HEMOGLOBIN (HGB) 12.1 12.0 - 15.8 g/dL 10/26/2024 8:05 PM CDT [facility] HEMATOCRIT (HCT) 40.2 36.0 - 47.0 % 10/26/2024 8:05 PM [facility] MCV 92.2 82.0 - 96.0 fL 10/26/2024 8:05 PM CDT [facility] MCH 27.8 26.0 - 34.0 pg 10/26/2024 8:05 PM [facility] MCHC 30.1(L) 31.0 - 36.0 g/dL 10/26/2024 8:05 PM T [facility] PLATELET COUNT 296 140 - 440 10(3)/mcL 10/26/2024 8:05 PM [facility] RDW 16.0(H) 11.8 - 15.5 % 10/26/2024 8:05 PM [facility] MPV 10.0 9.7 - 12.4 fL 10/26/2024 8:05 PM [facility] NEUTROPHILS 91.6(H) 47.0 - 73.0 % 10/26/2024 8:05 PM [facility] LYMPHOCYTES 4.4(L) 18.0 - 42.0 % 10/26/2024 8:05 PM [facility] MONOCYTES 3.8(L) 4.0 - 12.0 % 10/26/2024 8:05 PM [facility] EOSINOPHILS 0.0 0.0 - 5.0 % 10/26/2024 8:05 PM [facility] BASOPHILS 0.2 0.0 - 1.0 % 10/26/2024 8:05 PM [facility] ABSOLUTE NEUTROPHILS 10.85(H) 1.60 - 7.70 10(3)/mcL 10/26/2024 8:05 PM [facility] ABSOLUTE LYMPHOCYTES 0.52(L) 1.30 - 3.20 10(3)/mcL 10/26/2024 8:05 PM [facility] ABSOLUTE MONOCYTES 0.45 0.20 - 1.00 10(3)/mcL 10/26/2024 8:05 PM CDT [facility] ABSOLUTE EOSINOPHIL 0.00 0.00 - 0.40 10(3)/mcL 10/26/2024 8:05 PM CDT [facility] ABSOLUTE BASOPHILS 0.02 0.00 - 0.10 10(3)/mcL 10/26/2024 8:05 PM CDT [facility] NRBC PER 100 WBC 0 10/27/19 8:05 PM CDT [facility] RESULTS ARE CONSISTENT WITH PERIPHERAL SMEAR REVIEW Yes 10/26/2024 8:05 PM CDT [facility] RBC MORPHOLOGY CONSISTENT WITH INDICES Yes 10/26/2024 8:05 PM CDT [facility] Blood Venipuncture / Unknown 10/26/2024 7:09 PM CDT 10/26/2024 7:21 PM CDT Mathew Bower PAC HEMATOLOGY ORDERABLE S Final Result Performing Organization Address City/[facility]/ZIP Co de Phone Number [facility] [place] [address] * Magnesium (10/26/2024 7:09 PM CDT) Only the most recent of2 resultswithin the time period is included. MAGNESIUM 1.9 1.6 - 2.6 mg/dL 10/26/2024 7:52 PM CDT [facility] Blood Venipuncture / Unknown 10/26/2024 7:09 PM CDT 10/26/2024 7:21 PM CDT Mathew Bower PAC CHEMISTRY ORDERABLES Final Result Performing Organization Address City/[facility]/ZIP Co de Phone Number [facility] [place] [address] * (ABNORMAL) CMP (10/26/2024 7:09 PM CDT) Only the most recent of3 resultswithin the time period is included. SODIUM 140 136 - 145 mmol/L 10/26/2024 7:52 PM CDT [facility] POTASSIUM 4.5 3.5 - 5.1 mmol/L 10/26/2024 7:52 PM CDT [facility] CHLORIDE 102 98 - 107 mmol/L 10/26/2024 7:52 PM CDT [facility] CO2, VENOUS 28 22 - 30 mmol/L 10/26/2024 7:52 PM CDT [facility] ANION GAP 14.5 <18.0 mmol/L 10/26/2024 7:52 PM CDT [facility] GLUCOSE 172(H) 70 - 99 mg/dL 10/26/2024 7:52 PM CDT [facility] BUN 31(H) 10 - 20 mg/dL 10/26/2024 7:52 PM T [facility] CREATININE, BLOOD 1.24(H) 0.60 - 1.00 mg/dL 10/26/2024 7:52 PM T [facility] BUN/CREATININE RATIO 25(H) 12 - 20 ratio 10/26/2024 7:52 PM CDT [facility] TOTAL PROTEIN 7.2 6.0 - 8.0 g/dL 10/26/2024 7:52 PM T [facility] ALBUMIN 4.1 3.5 - 5.0 g/dL 10/26/2024 7:52 PM CDT [facility] A/G RATIO 1.3 1.0 - 2.2 10/26/2024 7:52 PM CDT [facility] CALCIUM 9.3 8.7 - 10.5 mg/dL 10/26/2024 7:52 PM CDT [facility] T BILI 0.3 0.2 - 1.2 mg/dL 10/26/2024 7:52 PM CDT [facility] SGOT (AST) 13 <43 U/L 10/26/2024 7:52 PM CDT [facility] SGPT (ALT) 13 <56 U/L 10/26/2024 7:52 PM CDT [facility] ALKALINE PHOSPHATASE 116 40 - 150 U/L 10/26/2024 7:52 PM CDT [facility] GFR, ESTIMATED 49(L) >=60 10/26/2024 7:52 PM CDT [facility] Comment: Creatinine Clearance is the preferred criteria for selecting drug dose adjustments in renally impaired patients. The GFR is provided as additional pertinent clinical information. GFR is reported in mL/min/1.73 sq m. Calculation based on the Chronic Kidney Disease Epidemiology Collaboration (CKD- EPI) equation refit without adjustment for race. GFR, EST. 53(L) >=60 025 7:52 PM CDT [facility] GFR, EST. NONAFRICAN 44(L) >=60 10/26/2024 7:52 PM CDT [facility] Blood Venipuncture / Unknown 10/26/2024 7:09 PM CDT 10/26/2024 7:21 PM CDT Mathew Bower PAC CHEMISTRY ORDERABLES Final Result Performing Organization Address City/[facility] Co de Phone Number [facility] [place] [address] * (ABNORMAL) B-Type Natriuretic Peptide (BNP) (10/26/2024 7:09 PM CDT) Only the most recent of2 resultswithin the time period is included. B TYPE NATRIURETIC PEPTIDE 123(H) <100 pg/mL 10/26/2024 8:10 PM CDT [facility] Blood Venipuncture / Unknown 10/26/2024 7:09 PM CDT 10/26/2024 7:21 PM CDT Mathew Bower PAC CHEMISTRY ORDERABLES Final Result [facility] [place] [address] * EKG 12 LEAD (10/26/2024 6:49 PM CDT) Only the most recent of3 resultswithin the time period is included. Ventricular Rate 116 BPM EXTERNAL EKG Atrial Rate 116 BPM EXTERNAL EKG P-R Interval 144 ms EXTERNAL EKG QRS Duration 80 ms EXTERNAL EKG Q-T Duration 304 ms EXTERNAL EKG QTC CALCULATION 422 ms EXTERNAL EKG P [place] 62 degrees EXTERNAL EKG R [place] 9 degrees EXTERNAL EKG T [place] 44 degrees EXTERNAL EKG 10/26/2024 6:49 PM CDT Impressions EXTERNAL EKG - 10/31/2024 4:35 PM CDT Sinus tachycardia Otherwise normal ECG When compared with ECG of 22-OCT-2024 23:39, Minimal criteria for Inferior infarct are no longer present Confirmed by JADEN MELTON ([id number]) on 10/31/2024 4:34:55 PM Narrative Procedure Note Jaden Melton MD - 10/31/2024 IMPRESSION: Sinus tachycardia Otherwise normal ECG When compared with ECG of 22-OCT-2024 23:39, Minimal criteria for Inferior infarct are no longer present Confirmed by JADEN MELTON ([id number]) on 10/31/2024 4:34:55 PM Ramírez Sun MD IMG ECG ORDERABLES F inal Result EXTERNAL EKG * (ABNORMAL) BMP with Ca, Total (10/26/2024 4:40 AM CDT) Only the most recent of6 resultswithin the time period is included. SODIUM 141 136 - 145 mmol/L 10/26/2024 5:30 AM CDT [facility] POTASSIUM 4.7 3.5 - 5.1 mmol/L 10/26/2024 5:30 AM CDT [facility] CHLORIDE 103 98 - 107 mmol/L 10/26/2024 5:30 AM CDT [facility] CO2, VENOUS 30 22 - 30 mmol/L 10/26/2024 5:30 AM CDT [facility] ANION GAP 12.7 <18.0 mmol/L 10/26/2024 5:30 AM CDT [facility] GLUCOSE 121(H) 70 - 99 mg/dL 10/26/2024 5:30 AM CDT [facility] BUN 30(H) 10 - 20 mg/dL 10/26/2024 5:30 AM CDT [facility] CREATININE, BLOOD 1.16(H) 0.60 - 1.00 mg/dL 10/26/2024 5:30 AM CDT [facility] BUN/CREATININE RATIO 26(H) 12 - 20 ratio 10/26/2024 5:30 AM CDT [facility] CALCIUM 9.0 8.7 - 10.5 mg/dL 10/26/2024 5:30 AM CDT [facility] GFR, ESTIMATED 53(L) >=60 10/26/2024 5:30 AM CDT [facility] Comment: Creatinine Clearance is the preferred criteria for selecting drug dose adjustments in renally impaired patients. The GFR is provided as additional pertinent clinical information. GFR is reported in mL/min/1.73 sq m. Calculation based on the Chronic Kidney Disease Epidemiology Collaboration (CKD- EPI) equation refit without adjustment for race. GFR, EST. 57(L) >=60 025 5:30 AM CDT [facility] GFR, EST. NONAFRICAN 47(L) >=60 10/26/2024 5:30 AM CDT [facility] Blood Venipuncture / Unknown 10/26/2024 4:40 AM CDT 10/26/2024 4:53 AM CDT us Rossy Tay [employer], [employer] CHEMISTRY ORDERABLES Shelby l Result [facility] [place] [address] * RHYTHM STRIP (10/26/2024 12:00 AM CDT) Only the most recent of22 resultswithin the time period is included. 10/26/2024 us Provider Scan IMG ECG ORDERABLES Final Result RESULTING AGENCY * EKG SCAN (10/26/2024 12:00 AM CDT) Only the most recent of3 resultswithin the time period is included. 10/26/2024 us Provider Scan IMG ECG ORDERABLES Final Result Performing Organization Address [facility] de Phone Number RESULTING AGENCY * MRI L-SPINE W/O CONTRAST (10/24/2024 12:42 PM CDT) Anatomical Region Laterality Modality Spine, L-spine N/A Magnetic Resonan ce 10/24/2024 12:5 2 PM CDT Impressions 10/24/2024 12:55 PM CDT IMPRESSION: Constellation of levocurvature, spondylolisthesis, spondylosis, and degenerative disc disease of the lumbar spine as detailed level by level above. Narrative 10/24/2024 12:55 PM CDT EXAM DESCRIPTION: MRI LUMBAR SPINE WITHOUT CONTRAST REASON FOR STUDY: Chronic low back pain for several years, worsened over the past week. No provided history of trauma or inciting and/or aggravating events,, though history of multiple falls over the past year without provided history of lumbar spine/back injury pursuant to events. No provided past medical or surgical history. TECHNIQUE: Sagittal and axial imaging of the lumbar spine includes T1, T2, STIR sequences. Images saved to PACS. Patient motion artifact variably spanning multiple sequences, noting multiple sequences repeated, compromises evaluation. COMPARISON: Lumbar spine radiograph 10/23/2024; relevant portions of CT chest/abdomen/pelvis with contrast 10/23/2024. FINDINGS: SEGMENTATION: No lumbosacral transitional anatomy. The lowest fully formed intervertebral disc level is labeled L5-S1. ALIGNMENT: Redemonstration of mild levocurvature sweeping the lumbar spine and minimal retrolisthesis L2 on L3. VERTEBRAE: No MR evidence of acute-subacute fracture. Vertebral body heights maintained. Spondylosis. Scattered hemangiomas and patchy fatty marrow replacement about the osseous architecture. DISC HEIGHT: Multilevel variable intervertebral disc desiccation and loss of intervertebral disc height. HARDWARE: None in the lumbar spine. CORD/CAUDA: Normal in size and signal intensity with conus medullaris termination at L1-2. LOWER THORACIC: Incompletely imaged. No stenosis demonstrated. INDIVIDUAL DISC LEVELS: L1-2: No diffuse disc bulge or focal herniation. Bilateral hypertrophic facet arthropathy. Ligamentum flavum thickening. No spinal canal stenosis. No neural foraminal stenosis. L2-3: Slightly overhanging posterior cortical margin with annular disc bulge. Bilateral hypertrophic facet arthropathy. Compromise of the right lateral recess. No spinal canal stenosis. No neural foraminal stenosis. L3-4: Minimal annular disc bulge. Bilateral hypertrophic facet arthropathy. No spinal canal stenosis. No significant neural foraminal stenosis. L4-5: Minimal annular disc bulge with shallow central-left subarticular disc protrusion. Bilateral hypertrophic facet arthropathy, noting fluid in the facet joints suggestive of facet synovitis. Ligamentum flavum thickening. Compromise of the bilateral lateral recesses, noting combination of disc and arthropathic facet slight contact with descending bilateral L5 nerve roots. Moderate spinal canal stenosis. Mild inferior right neural foraminal stenosis, noting slight disc contact with the exiting right L4 nerve root. L5-S1: Annular disc bulge with right eccentric central-right subarticular disc protrusion. Bilateral hypertrophic facet arthropathy. Slight compromise of the right lateral recess. No spinal canal stenosis. Mild variable bilateral neural foraminal stenosis, noting variable slight disc contact with exiting bilateral L5 nerve roots. SACRUM: Visualized upper sacrum intact. VISUALIZED UPPER ABDOMEN: Within limitations of patient motion artifact, no overt evidence of acute abnormality. Please reference abdominopelvic CT imaging 1 day prior for abdominopelvic findings. OTHER: Sarcopenia manifested as variably robust fatty atrophy of the visualized musculature. THIS IS AN ELECTRONICALLY VERIFIED FINAL REPORT 10/24/2024 12:52 PM - Electronically signed by Roland Elmore M.D. MATA: MATA Report ID: [id number] Reading Location: [id number] Procedure Note Roland Elmore MD - 10/24/2024 EXAM DESCRIPTION: MRI LUMBAR SPINE WITHOUT CONTRAST REASON FOR STUDY: Chronic low back pain for several years, worsened over the past week. No provided history of trauma or inciting and/or aggravating events,, though history of multiple falls over the past year without provided history of lumbar spine/back injury pursuant to events. No provided past medical or surgical history. TECHNIQUE: Sagittal and axial imaging of the lumbar spine includes T1, T2, STIR sequences. Images saved to PACS. Patient motion artifact variably spanning multiple sequences, noting multiple sequences repeated, compromises evaluation. COMPARISON: Lumbar spine radiograph 10/23/2024; relevant portions of CT chest/abdomen/pelvis with contrast 10/23/2024. FINDINGS: SEGMENTATION: No lumbosacral transitional anatomy. The lowest fully formed intervertebral disc level is labeled L5-S1. ALIGNMENT: Redemonstration of mild levocurvature sweeping the lumbar spine and minimal retrolisthesis L2 on L3. VERTEBRAE: No MR evidence of acute-subacute fracture. Vertebral body heights maintained. Spondylosis. Scattered hemangiomas and patchy fatty marrow replacement about the osseous architecture. DISC HEIGHT: Multilevel variable intervertebral disc desiccation and loss of intervertebral disc height. HARDWARE: None in the lumbar spine. CORD/CAUDA: Normal in size and signal intensity with conus medullaris termination at L1-2. LOWER THORACIC: Incompletely imaged. No stenosis demonstrated. INDIVIDUAL DISC LEVELS: L1-2: No diffuse disc bulge or focal herniation. Bilateral hypertrophic facet arthropathy. Ligamentum flavum thickening. No spinal canal stenosis. No neural foraminal stenosis. L2-3: Slightly overhanging posterior cortical margin with annular disc bulge. Bilateral hypertrophic facet arthropathy. Compromise of the right lateral recess. No spinal canal stenosis. No neural foraminal stenosis. L3-4: Minimal annular disc bulge. Bilateral hypertrophic facet arthropathy. No spinal canal stenosis. No significant neural foraminal stenosis. L4-5: Minimal annular disc bulge with shallow central-left subarticular disc protrusion. Bilateral hypertrophic facet arthropathy, noting fluid in the facet joints suggestive of facet synovitis. Ligamentum flavum thickening. Compromise of the bilateral lateral recesses, noting combination of disc and arthropathic facet slight contact with descending bilateral L5 nerve roots. Moderate spinal canal stenosis. Mild inferior right neural foraminal stenosis, noting slight disc contact with the exiting right L4 nerve root. L5-S1: Annular disc bulge with right eccentric central-right subarticular disc protrusion. Bilateral hypertrophic facet arthropathy. Slight compromise of the right lateral recess. No spinal canal stenosis. Mild variable bilateral neural foraminal stenosis, noting variable slight disc contact with exiting bilateral L5 nerve roots. SACRUM: Visualized upper sacrum intact. VISUALIZED UPPER ABDOMEN: Within limitations of patient motion artifact, no overt evidence of acute abnormality. Please reference abdominopelvic CT imaging 1 day prior for abdominopelvic findings. OTHER: Sarcopenia manifested as variably robust fatty atrophy of the visualized musculature. THIS IS AN ELECTRONICALLY VERIFIED FINAL REPORT 10/24/2024 12:52 PM - Electronically signed by Roland Elmore M.D. MATA: MATA Report ID: [id number] Reading Location: [place] [id number] IMPRESSION: Constellation of levocurvature, spondylolisthesis, spondylosis, and degenerative disc disease of the lumbar spine as detailed level by level above. Jina Mora MD IMG MR ORDERABLES Fi nal Result * XR LUMBAR SPINE 2 OR 3 VIEWS (10/23/2024 4:58 PM CDT) Anatomical Region Laterality Modality Spine, L-spine N/A Digital Radiogra phy 10/23/2024 7:51 PM CDT Impressions 10/23/2024 7:54 PM CDT IMPRESSION: No acute spinal abnormality. Narrative 10/23/2024 7:54 PM CDT EXAM DESCRIPTION: XR LUMBAR SPINE 2 OR 3 VIEWS REASON FOR STUDY: pt c/o back pain x couple years but worsen since hospital stay, started on rt side and now pain is more in the middle of back near tailbone, hx of falls within the past 6 months TECHNIQUE: 3 radiographic view(s) of the lumbar spine. COMPARISON: CT 10/23/2024 FINDINGS: Bones are osteopenic. Mild diffuse degenerative changes are noted. This is most severe in the lower thoracic spine. No fracture or dislocation is seen. Alignment appears to be maintained. Contrast is noted in the bladder. THIS IS AN ELECTRONICALLY VERIFIED FINAL REPORT 10/23/2024 7:51 PM - Electronically signed by Clay MORGAN: EDDIE Report ID: [id number] Reading Location: [id number] Procedure Note Clay Garnica MD - 10/23/2024 EXAM DESCRIPTION: XR LUMBAR SPINE 2 OR 3 VIEWS REASON FOR STUDY: pt c/o back pain x couple years but worsen since hospital stay, started on rt side and now pain is more in the middle of back near tailbone, hx of falls within the past 6 months TECHNIQUE: 3 radiographic view(s) of the lumbar spine. COMPARISON: CT 10/23/2024 FINDINGS: Bones are osteopenic. Mild diffuse degenerative changes are noted. This is most severe in the lower thoracic spine. No fracture or dislocation is seen. Alignment appears to be maintained. Contrast is noted in the bladder. THIS IS AN ELECTRONICALLY VERIFIED FINAL REPORT 10/23/2024 7:51 PM - Electronically signed by Clay Garnica M.D. KH: EDDIE Report ID: [id number] Reading Location: [id number] IMPRESSION: No acute spinal abnormality. Jina Mora MD IMG DIAGNOSTIC ORDER GHANSHYAM Final Result * Procalcitonin (10/23/2024 9:29 AM CDT) PROCALCITONIN 0.05 <=0.25 ng/mL 10/23/2024 11:43 AM CDT [facility] Blood Venipuncture / Unknown 10/23/2024 9:29 AM CDT 10/23/2024 10:55 AM CDT Narrative [facility] - 10/23/2024 11:43 AM CDT If the differential diagnosis is systemic bacterial infection, sepsis, or septic shock use these guidelines: <=0.25 ng/mL: Low risk for systemic bacterial infection, sepsis, or septic shock. Localized bacterial infection possible: Suggest re-testing in 24 hours >=0.50 ng/mL: Systemic bacterial infection, sepsis, or septic shock are possible: suggest re-testing in approximately 24 hours. If the differential diagnosis is suspected lower respiratory tract infection (LRTI) or there is confirmed LRTI: < 0.1 ng/mL: Suggests absence of bacterial infection. Antibiotic therapy strongly discouraged. 0.1-0.25 ng/mL: Suggests bacterial infection is unlikely. Antibiotic therapy discouraged. 0.26-0.5 ng/mL: Suggests possible bacterial infection. Antibiotic therapy encouraged. > 0.5 ng/mL: Suggests bacterial infection. Antibiotic therapy strongly encouraged us Jina Mora MD IMMUNOLOGY ORDERABLE S Final Result [facility] [place] [address] * CT ANGIO CHEST W/WO ABDOMEN PELVIS W CONTRAST (10/23/2024 3:24 AM CDT) Anatomical Region Laterality Modality Chest N/A Computed Tomogra phy 10/23/2024 4:21 AM CDT Impressions 10/23/2024 4:24 AM CDT IMPRESSION: No CTA evidence of pulmonary embolism to the subsegmental level. Hypoventilatory chest with dependent atelectasis and areas of plate-like atelectasis in the bases, not significantly changed from previous. Mild dilation of the main pulmonary artery, which can be seen in the setting of pulmonary arterial hypertension. Moderate hiatal hernia. Mild atherosclerosis. Mild multilevel degenerative changes in the spine. Narrative 10/23/2024 4:24 AM CDT EXAM DESCRIPTION: CT ANGIO CHEST W/WO ABDOMEN PELVIS W CONTRAST REASON FOR STUDY: hypoxia today.and low back pain x 1 week. Pt wears 4L O2 at all times. HX: Former smoker, COPD, HTN, GERD, Polymyalgia rheumatica, Hiatal hernia, Hypothyroidism, Cholecystectomy, Hysterectomy TECHNIQUE: CT angiogram of the chest performed with intravenous contrast using helical scanning technique with dynamic intravenous contrast injection. Axial tomographic sections were then obtained through the abdomen and pelvis. Reconstructed coronal and sagittal MPR images reviewed. Coronal and sagittal reformats were performed of the lumbar spine. All images stored on PACS. 3D MIP images rendered on scanning unit and reviewed at time of interpretation. Automated exposure control was used as a dose optimization technique for this examination. CONTRAST TYPE/DOSE: 100mL of IOPAMIDOL 76 % IV SOLN injected via Intravenous COMPARISON: Comparison is made to CT of the chest of February 25, [address] of the abdomen and pelvis of September 19, 2020. REFERENCE: Per ACR white paper recommendations, unless otherwise specified no follow-up imaging is recommended for incidental renal and adrenal lesions per consensus recommendations based on imaging criteria. Further lab evaluation could be pursued based on clinical findings. FINDINGS: CHEST NECK BASE: Unremarkable. HARDWARE/LINES/TUBES: None. LYMPH NODES: No axillary, mediastinal or hilar lymphadenopathy is seen by CT size criteria. MEDIASTINUM/DAVID: No masses seen. The aorta and great vessels appear normal. There is no significant coronary artery calcification. The main pulmonary artery is mildly dilated measuring 3.6 cm in diameter. The contrast bolus is adequate . There is streak artifact related to dense contrast in the SVC, somewhat limiting evaluation of the adjacent right upper lobe vasculature. The pulmonary arteries are well evaluated to the subsegmental level. There are no filling defects seen in the pulmonary arteries on the axial or coronal images to suggest pulmonary embolism. There is no evidence of left intraventricular septal bowing. There is mild reflux of contrast into the IVC and hepatic veins. Heart size is normal. There is trace pericardial fluid. There is a moderate hiatal hernia. PLEURA: No effusion. No pneumothorax. LUNGS: The lungs are hypoventilatory with dependent atelectasis through out the lungs bilaterally and areas of platelike atelectasis in the bases, not significantly changed from previous. The central airways are normal. CHEST WALL/BREAST: Unremarkable. MUSCULOSKELETAL: There is diffuse degenerative change of the thoracic spine. There is no acute abnormality. OTHER: No other significant abnormality. ABDOMEN AND PELVIS LIVER: The liver is normal in attenuation without focal lesion. GALLBLADDER: Surgically absent. BILE DUCTS: There is minimal intrahepatic and extrahepatic biliary dilation, likely representing reservoir effect from prior cholecystectomy. PANCREAS: Normal. SPLEEN: Normal size. No focal lesions. ADRENALS: Normal. KIDNEYS/URINARY TRACT: No identified significant cystic or solid masses. No visualized stones. No hydronephrosis or hydroureter. The bladder is collapsed. VASCULATURE: There is mild atherosclerosis of the aorta and its pelvic branches. GI: There is a moderate hiatal hernia. The stomach appears otherwise normal. There is no significant small bowel dilation or visible thickening. No gross colonic abnormalities identified. The appendix is normal. PERITONEUM/MESENTERY: No ascites or free air. LYMPH NODES: There are no enlarged lymph nodes seen by CT size criteria. REPRODUCTIVE: The patient is status post hysterectomy. No adnexal pathology is seen. MUSCULOSKELETAL: Mild multilevel degenerative changes are present in the spine. No acute bony abnormalities are seen. OTHER: No other abnormality. THIS IS AN ELECTRONICALLY VERIFIED FINAL REPORT 10/23/2024 4:21 AM - Electronically signed by Gaby Guerra M.D. SN: SN Report ID: [id number] Reading Location: [id number] Procedure Note Gaby Guerra MD - 10/23/2024 EXAM DESCRIPTION: CT ANGIO CHEST W/WO ABDOMEN PELVIS W CONTRAST REASON FOR STUDY: hypoxia today.and low back pain x 1 week. Pt wears 4L O2 at all times. HX: Former smoker, COPD, HTN, GERD, Polymyalgia rheumatica, Hiatal hernia, Hypothyroidism, Cholecystectomy, Hysterectomy TECHNIQUE: CT angiogram of the chest performed with intravenous contrast using helical scanning technique with dynamic intravenous contrast injection. Axial tomographic sections were then obtained through the abdomen and pelvis. Reconstructed coronal and sagittal MPR images reviewed. Coronal and sagittal reformats were performed of the lumbar spine. All images stored on PACS. 3D MIP images rendered on scanning unit and reviewed at time of interpretation. Automated exposure control was used as a dose optimization technique for this examination. CONTRAST TYPE/DOSE: 100mL of IOPAMIDOL 76 % IV SOLN injected via Intravenous COMPARISON: Comparison is made to CT of the chest of February 25, [address] of the abdomen and pelvis of September 19, 2020. REFERENCE: Per ACR white paper recommendations, unless otherwise specified no follow-up imaging is recommended for incidental renal and adrenal lesions per consensus recommendations based on imaging criteria. Further lab evaluation could be pursued based on clinical findings. FINDINGS: CHEST NECK BASE: Unremarkable. HARDWARE/LINES/TUBES: None. LYMPH NODES: No axillary, mediastinal or hilar lymphadenopathy is seen by CT size criteria. MEDIASTINUM/DAVID: No masses seen. The aorta and great vessels appear normal. There is no significant coronary artery calcification. The main pulmonary artery is mildly dilated measuring 3.6 cm in diameter. The contrast bolus is adequate . There is streak artifact related to dense contrast in the SVC, somewhat limiting evaluation of the adjacent right upper lobe vasculature. The pulmonary arteries are well evaluated to the subsegmental level. There are no filling defects seen in the pulmonary arteries on the axial or coronal images to suggest pulmonary embolism. There is no evidence of left intraventricular septal bowing. There is mild reflux of contrast into the IVC and hepatic veins. Heart size is normal. There is trace pericardial fluid. There is a moderate hiatal hernia. PLEURA: No effusion. No pneumothorax. LUNGS: The lungs are hypoventilatory with dependent atelectasis through out the lungs bilaterally and areas of platelike atelectasis in the bases, not significantly changed from previous. The central airways are normal. CHEST WALL/BREAST: Unremarkable. MUSCULOSKELETAL: There is diffuse degenerative change of the thoracic spine. There is no acute abnormality. OTHER: No other significant abnormality. ABDOMEN AND PELVIS LIVER: The liver is normal in attenuation without focal lesion. GALLBLADDER: Surgically absent. BILE DUCTS: There is minimal intrahepatic and extrahepatic biliary dilation, likely representing reservoir effect from prior cholecystectomy. PANCREAS: Normal. SPLEEN: Normal size. No focal lesions. ADRENALS: Normal. KIDNEYS/URINARY TRACT: No identified significant cystic or solid masses. No visualized stones. No hydronephrosis or hydroureter. The bladder is collapsed. VASCULATURE: There is mild atherosclerosis of the aorta and its pelvic branches. GI: There is a moderate hiatal hernia. The stomach appears otherwise normal. There is no significant small bowel dilation or visible thickening. No gross colonic abnormalities identified. The appendix is normal. PERITONEUM/MESENTERY: No ascites or free air. LYMPH NODES: There are no enlarged lymph nodes seen by CT size criteria. REPRODUCTIVE: The patient is status post hysterectomy. No adnexal pathology is seen. MUSCULOSKELETAL: Mild multilevel degenerative changes are present in the spine. No acute bony abnormalities are seen. OTHER: No other abnormality. THIS IS AN ELECTRONICALLY VERIFIED FINAL REPORT 10/23/2024 4:21 AM - Electronically signed by Gaby Guerra M.D. SN: SN Report ID: [id number] Reading Location: [id number] IMPRESSION: No CTA evidence of pulmonary embolism to the subsegmental level. Hypoventilatory chest with dependent atelectasis and areas of plate-like atelectasis in the bases, not significantly changed from previous. Mild dilation of the main pulmonary artery, which can be seen in the setting of pulmonary arterial hypertension. Moderate hiatal hernia. Mild atherosclerosis. Mild multilevel degenerative changes in the spine. Jim Garrido MD IMG CT ORDERABLES Final R esult * (ABNORMAL) Urinalysis with Reflex (10/23/2024 2:32 AM CDT) SPECIFIC GRAVITY 1.015 1.003 - 1.030 10/23/2024 3:03 AM CDT [facility] URINE PH 6.0 5.0 - 9.0 10/23/2024 3:03 AM CDT [facility] WBC ESTERASE Negative Negative 10/23/2024 3:03 AM CDT [facility] NITRITE Negative Negative 10/23/2024 3:03 AM CDT [facility] PROTEIN, RANDOM URINE 15 mg/dL(A) Negative 10/23/2024 3:03 AM CDT [facility] URINE GLUCOSE, QUAL Negative Negative 10/23/2024 3:03 AM CDT [facility] URINE KETONES Negative Negative 10/23/2024 3:03 AM CDT [facility] UROBILINOGEN Normal Normal mg/dL 10/23/2024 3:03 AM CDT [facility] URINE BLOOD Negative Negative jacob/ul 10/23/2024 3:03 AM CDT [facility] URINALYSIS COLOR Yellow 10/24/19 3:03 AM CDT [facility] URINALYSIS CLARITY Clear 10/23/2024 3:03 AM CDT [facility] Urine (Straight Catheter) Non-Phlebotomy Collection / Unknown 10/23/2024 2:32 AM CDT 10/23/2024 2:49 AM CDT Jim Garrido MD URINE ORDERABLES Final Re sult Performing Organization Address City/[facility]/ZIP Co de Phone Number [facility] [place] [address] * RSV,SARS-COV-2,INFLUENZA A&B BY PCR (10/23/2024 12:20 AM CDT) Only the most recent of2 resultswithin the time period is included. FLU A Negative Negative, Error 10/23/2024 1:09 AM CDT [facility] FLU B Negative Negative 10/23/2024 1:09 AM CDT [facility] RESP SYNC VIRUS Negative Negative 1:09 AM CDT [facility] SARSCOV2 NOT DETECTED (Reference Range for this test is Not Detected) 10/23/2024 1:09 AM CDT [facility] Comment:This test was perfor med by a Reverse Mail Processing Machine Operator PCR Method. Swab NASOPHARYNGEAL WASHINGS / Unknown Non-Phlebotomy Collection / Unknown 10/23/2024 12:20 AM CDT 10/23/2024 12:30 AM CDT Jim Garrido MD MICROBIOLOGY - GENERAL OR DERABLES Final Result Performing Organization Address [facility] Co de Phone Number [facility] [place] [address] * (ABNORMAL) Blood Gases, Arterial w/ O2 Saturation [id number] (10/23/2024 12:06 AM CDT) Only the most recent of2 resultswithin the time period is included. O2 STATUS 15L High Flow Cannula 10/23/2024 12:10 AM CDT [facility] PH ARTERIAL 7.33(L) 7.35 - 7.45 10/23/2024 12:10 AM CDT [facility] PC02 (ARTERIAL) 54(H) 35 - 45 mmHg 10/23/2024 12:10 AM CDT [facility] PO2 (ARTERIAL) 61(L) 75 - 100 mmHg 10/23/2024 12:10 AM CDT [facility] O2 SAT ART, MEASURED 86(L) 94 - 100 % 10/23/2024 12:10 AM CDT [facility] BASE ARTERIAL 2.2(H) -2.0 - 2.0 mmol/L 10/23/2024 12:10 AM CDT [facility] BICARBONATE 28.6(H) 22.0 - 26.0 mmol/L 10/23/2024 12:10 AM CDT [facility] LULU'S TEST RESULTS Non-Radial Site 10/23/2024 12:10 AM CDT [facility] CARBOXYHEMOGLOBIN 1.0 0.0 - 5.0 % 10/23/2024 12:10 AM CDT [facility] METHEMOGLOBIN 0.5 0.0 - 1.5 % 10/23/2024 12:10 AM CDT [facility] ART Blood Gas Arterial Punctur e / Unknown 10/23/2024 12:06 AM CDT 10/23/2024 12:06 AM CDT us Jim Garrido MD CHEMISTRY ORDERABLES Shelby l Result [facility] [place] [address] * Blood Culture #2 (10/23/2024 12:05 AM CDT) Only the most recent of2 resultswithin the time period is included. CULTURE RESULTS NO GROWTH WITHIN 5 DAYS, FINAL RESULT 10/28/2024 1:00 AM CDT [facility] Culture BLOOD SPECIMEN / Unknown Venipuncture / Unknown 10/23/2024 12:05 AM CDT 10/23/2024 12:05 AM CDT Jim Garrido MD MICROBIOLOGY - GENERAL OR DERABLES Final Result Performing Organization Address City/[facility] Co de Phone Number [facility] [address] [place] [address], [place] * Gold Top Tube (10/22/2024 11:57 PM CDT) Only the most recent of2 resultswithin the time period is included. Blood No Phlebotomy Charged / Unknown 10/22/2024 11:57 PM CDT 10/23/2024 12:03 AM CDT Jim Garrido MD CHEMISTRY ORDERABLES Shelby l Result Performing Organization Address [facility] Co de Phone Number [facility] [place] [address] * Blue Top Tube (10/22/2024 11:57 PM CDT) Only the most recent of2 resultswithin the time period is included. Blood No Phlebotomy Charged / Unknown 10/22/2024 11:57 PM CDT 10/23/2024 12:03 AM CDT Jim Garrido MD HEMATOLOGY ORDERABLES Fin al Result Performing Organization Address [facility] Co de Phone Number [facility] [place] [address] * Lactic Acid (Lactate) (10/22/2024 11:57 PM CDT) LACTIC ACID 1.3 0.7 - 2.0 mmol/L 10/23/2024 12:25 AM CDT [facility] Blood Venipuncture / Unknown 10/22/2024 11:57 PM CDT 10/23/2024 12:05 AM CDT us Jim Garrido MD CHEMISTRY ORDERABLES Shelby l Result [facility] [place] [address] * Critical Care (10/22/2024 11:55 PM CDT) Narrative Jim Garrido MD - 10/22/2024 11:55 PM CDT Jim Garrido MD 10/23/2024 5:28 AM Critical Care Performed by: Jim Garrido MD Authorized by: Jim Garrido MD Critical care provider statement: Critical care time (minutes): 40 Critical care time was exclusive of: Separately billable procedures and treating other patients Critical care was necessary to treat or prevent imminent or life-threatening deterioration of the following conditions: Respiratory failure Critical care was time spent personally by me on the following activities: Development of treatment plan with patient or surrogate, evaluation of patient's response to treatment, examination of patient, obtaining history from patient or surrogate, review of old charts, re-evaluation of patient's condition, pulse oximetry, ordering and review of radiographic studies, ordering and review of laboratory studies and ordering and performing treatments and interventions I assumed direction of critical care for this patient from another provider in my specialty: no Care discussed with: admitting provider us Jim Garrido MD PROCEDURE/MINOR SURGICAL ORDERABLES Final Result * Pathology Surgical (10/11/2024 10:24 AM CDT) Case Report Surgical Pathology Report Case: [id number] Authorizing Provider: Mnajinder Herrera MD Collected: 10/11/2024 10:24 AM Ordering Location: [facility] Received: 10/11/2024 11:56 AM [facility] S[facility] [address] [place] [address] Pathologist: Clarke Burks MD PhD Specimens: A) - Duodenum, DUODENUM BIOPSY RULE OUT H. PYLORI B) - Stomach, ANTRAL BIOPSY RULE OUT H. PYLORI 10/12/2024 9:30 AM CDT [facility] FINAL DIAGNOSIS A. Duodenum, biopsy: - Duodenal mucosa, negative for diagnostic abnormalities B. Antrum, rule out H. pylori, biopsy: - Gastric mucosa with focal mild chronic inflammation - Negative for acute inflammation or H. pylori by H&E stain 10/12/2024 9:30 AM CDT [facility] at 0930 CDT Pre-Operative Diagnosis DYSPHAGIA 10/12/2024 9:30 AM CDT [facility] Gross Description A. DUODENUM BIOPSY RULE OUT H. PYLORI The specimen presents in two formalin containers for gross and microscopic examination labeled with the patient's name, Sunita Daniels. Part A is designated as duodenal biopsy. The specimen consists of two small fragments of pink-gil tissue measuring 0.2 cm in total dimensions. The specimen is submitted in its entirety in cassette A1. B. ANTRAL BIOPSY RULE OUT H. PYLORI Part B is designated as antral biopsy, rule out H. pylori. The specimen consists of two small fragments of pink-gil tissue measuring 0.2 cm in total dimensions for each. The specimen is submitted in its entirety in cassette B1. Total time of fixation is 11 hours, 19 minutes. MH/sb 10/12/2024 9:30 AM CDT [facility] Microscopic Description Microscopic examination was performed which supports the final diagnosis. All control tissues stained appropriately. 10/12/2024 9:30 AM CDT [facility] Tissue DUODENAL STRUCTURE / Unknown 10/11/2024 10:24 AM CDT 10/11/2024 11:56 AM CDT Tissue specimen (specimen) STOMACH STRUCTURE / Unknown 10/11/2024 10:27 AM CDT 10/11/2024 11:56 AM CDT us Manjinder Herrera MD PATHOLOGY/CYTOLOGY ORDERA BLES Final Result [facility] [place] [address] * GI LAB IMAGING - EGD (10/11/2024 10:19 AM CDT) Only the most recent of2 resultswithin the time period is included. us Manjinder Herrera MD IMG DIAGNOSTIC ORDERABLES Final Result * ADULT TRANS THORACIC ECHO 2D COMPLT W CONT (10/10/2024 3:46 PM CDT) AV Peak Grad mmHg 8.18 mmHg RESULTING AGENCY Mean Aortic Valve Gradient (MAVG) 4 mmHg RESULTING AGENCY LV end nahid diam cm 4.6 cm RESULTING AGENCY LV end sys diam cm 2.8 cm RESULTING AGENCY Aortic Root Diam cm 3.2 cm RESULTING AGENCY LA vol index ml/m2 17 ml/m2 RESULTING AGENCY LVOT Peak Jasper m/sec 1.12 m/sec RESULTING AGENCY AV Peak Jasper m/sec 1.43 m/sec RESULTING AGENCY MV Mean Grad mmHg 2 mmHg RESULTING AGENCY E/A Ratio 1.04 RESULTING AGENCY TR Jasper m/sec 2.48 m/sec RESULTI NG AGENCY E/E' 12.1 RESULTING AGENCY AV Area (VTI) cm2 2.32 cm2 RESULTING AGENCY SEPTUM DIASTOLIC CM 1.3 cm RESULTING AGENCY PW DIASTOLIC CM 1.1 cm RESU LTING AGENCY LA VOLUME 36 ml RESULTING AGENCY LV EF(estimated)% 73 RESULTING AGENCY Anatomical Region Laterality Modality CARDIO N/A Ultrasound Narrative 10/11/2024 8:12 AM CDT Transthoracic Echocardiography Report (TTE) Patient name AMNA Moreno 1960 Patient ID (UPI) [id number] Indications: COPD, Hypertension and Congestive heart failure. Study Date10/10/2024 Technical quality: Limited visualization Limitation Reason: COPD/Emphysema Type of Study: TTE procedure: Adult Trans Thoracic Echo 2D Complete. Priority:RoutineHR: 84 bpmBP: 138/82 mmHg Contrast Medium: Lumason. Amount - 3 ml Conclusions Summary The left ventricle is normal in size. Wall thickness is normal. LV function is normal. There are no regional wall motion abnormalities. LV EF of 70-75%. Normal LV diastolic function. Findings Mitral Valve The mitral valve is normal. There is no evidence of mitral stenosis. There is no significant mitral regurgitation. Aortic Valve The aortic valve is trileaflet with normal leaflet excursion. There is no evidence of aortic valve stenosis. There is no significant aortic valve insufficiency. Tricuspid Valve The tricuspid valve is normal. There is no evidence of tricuspid stenosis. Trace tricuspid valve regurgitation. Calculated PASP of 28 mmHg using RAP of 3 mmHg. No pulmonary hypertension as per echo criteria. Pulmonic Valve The pulmonic valve structure appears normal. There is no evidence of pulmonic stenosis. There is no significant pulmonic valve regurgitation. Left Atrium The left atrium size is normal. Left Ventricle The left ventricle is normal in size. Wall thickness is normal. LV function is normal. There are no regional wall motion abnormalities. LV EF of 70-75%. Normal LV diastolic function. Right Atrium The right atrium size is normal. Right Ventricle Normal right ventricular cavity size and normal systolic function. Pericardial Effusion Trace pericardial effusion. Miscellaneous Aortic root and proximal ascending aorta are normal in size. Atrial septum appears intact. IVC is normal in size and respiratory response. Aortic arch appears normal. Valves Mitral Valve Peak E-Wave: 0.96 m/s Area (continuity): 2.35 cm^2 Peak A-Wave: 0.92 m/s Mean Velocity: 0.71 m/s Peak Gradient: 3.72 mmHg Mean Gradient: 2 mmHg Deceleration Time: 187 msec Tissue Doppler E' Velocity: 0.06 m/s E/E':12.1 E/A Ratio: 1.04 E/Lat E': 12.1 E/Med E':14.8 Aortic Valve Area (continuity): 2.32 cm^2 Mean Velocity: 0.95 m/s Area (VTI):2.32 cm^2 Mean Gradient: 4 mmHg Peak Velocity: 1.43 m/s AV VTI: 24.8 cm Peak Gradient: 8.18 mmHg Tricuspid Valve Peak E-Wave: 0.52 m/s Peak Gradient: 1.1 mmHg TR Velocity: 2.48 m/s TR Gradient: 24.6 mmHg Pulmonic Valve Peak Velocity: 0.74 m/s Mean Velocity: 0.49 m/s Peak Gradient: 2.2 mmHg Mean Gradient: 1 mmHg LVOT Peak Velocity: 1.12 m/s Mean Velocity: 0.74 m/s Peak Gradient: 5 mmHg Mean Gradient: 3 mmHg LVOT Diameter: 2 cm LVOT VTI: 18.3 cm Stroke Volume: 57 ml Stroke Volume Index: 26.51 ml/m^2 Structures Left Ventricle Diastolic Dimension: 4.6 cm Systolic Dimension: 2.8 cm Septum Diastolic: 1.3 cm PW Diastolic: 1.1 cm Systolic Length: 14.4 cm Diastolic Length: 32.3 cm CI: 2.25 l/min*m^2 EF Calculated: 76.26% CO: 4.83 l/min RWT: 0.48 LV EDV: 107 ml LV EDV Index: 50 m^2 FS: 39.13 % LV ESV: 25.4 ml LV Length: 7.99 cm LV ESV Index: 12 m^2 LVOT Diameter: 2 cm Global Longitudinal Strain:-13.6 Right Ventricle RVOT (PLAX) diameter:3.4 cm Tissue Doppler RV S': 16.5 TAPSE: 2.75 cm Left Atrium LA Systolic Pressure: 17.18 mmHg LA Area: 14.9 cm^2 LA Volume: 36 ml LA Index: 17ml/m^2 Right Atrium RA Area: 9.6 cm^2 Great Vessels Aorta Ascending Aorta: 3.4 cm Aorta Root:3.2 cm Ascending Aorta Index:1.58 cm/m^2 Demographics Age 64 Gender Female Race Height 67.99 in. Weight 226 lbs. 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 1960 Patient ID (UPI) [id number] Indications: COPD, Hypertension and Congestive heart failure. Study Date10/10/2024 Technical quality: Limited visualization Limitation Reason: COPD/Emphysema Type of Study: TTE procedure: Adult Trans Thoracic Echo 2D Complete. Priority:RoutineHR: 84 bpmBP: 138/82 mmHg Contrast Medium: Lumason. Amount - 3 ml Conclusions Summary The left ventricle is normal in size. Wall thickness is normal. LV function is normal. There are no regional wall motion abnormalities. LV EF of 70-75%. Normal LV diastolic function. Findings Mitral Valve The mitral valve is normal. There is no evidence of mitral stenosis. There is no significant mitral regurgitation. Aortic Valve The aortic valve is trileaflet with normal leaflet excursion. There is no evidence of aortic valve stenosis. There is no significant aortic valve insufficiency. Tricuspid Valve The tricuspid valve is normal. There is no evidence of tricuspid stenosis. Trace tricuspid valve regurgitation. Calculated PASP of 28 mmHg using RAP of 3 mmHg. No pulmonary hypertension as per echo criteria. Pulmonic Valve The pulmonic valve structure appears normal. There is no evidence of pulmonic stenosis. There is no significant pulmonic valve regurgitation. Left Atrium The left atrium size is normal. Left Ventricle The left ventricle is normal in size. Wall thickness is normal. LV function is normal. There are no regional wall motion abnormalities. LV EF of 70-75%. Normal LV diastolic function. Right Atrium The right atrium size is normal. Right Ventricle Normal right ventricular cavity size and normal systolic function. Pericardial Effusion Trace pericardial effusion. Miscellaneous Aortic root and proximal ascending aorta are normal in size. Atrial septum appears intact. IVC is normal in size and respiratory response. Aortic arch appears normal. Valves Mitral Valve Peak E-Wave: 0.96 m/s Area (continuity): 2.35 cm^2 Peak A-Wave: 0.92 m/s Mean Velocity: 0.71 m/s Peak Gradient: 3.72 mmHg Mean Gradient: 2 mmHg Deceleration Time: 187 msec Tissue Doppler E' Velocity: 0.06 m/s E/E':12.1 E/A Ratio: 1.04 E/Lat E': 12.1 E/Med E':14.8 Aortic Valve Area (continuity): 2.32 cm^2 Mean Velocity: 0.95 m/s Area (VTI):2.32 cm^2 Mean Gradient: 4 mmHg Peak Velocity: 1.43 m/s AV VTI: 24.8 cm Peak Gradient: 8.18 mmHg Tricuspid Valve Peak E-Wave: 0.52 m/s Peak Gradient: 1.1 mmHg TR Velocity: 2.48 m/s TR Gradient: 24.6 mmHg Pulmonic Valve Peak Velocity: 0.74 m/s Mean Velocity: 0.49 m/s Peak Gradient: 2.2 mmHg Mean Gradient: 1 mmHg LVOT Peak Velocity: 1.12 m/s Mean Velocity: 0.74 m/s Peak Gradient: 5 mmHg Mean Gradient: 3 mmHg LVOT Diameter: 2 cm LVOT VTI: 18.3 cm Stroke Volume: 57 ml Stroke Volume Index: 26.51 ml/m^2 Structures Left Ventricle Diastolic Dimension: 4.6 cm Systolic Dimension: 2.8 cm Septum Diastolic: 1.3 cm PW Diastolic: 1.1 cm Systolic Length: 14.4 cm Diastolic Length: 32.3 cm CI: 2.25 l/min*m^2 EF Calculated: 76.26% CO: 4.83 l/min RWT: 0.48 LV EDV: 107 ml LV EDV Index: 50 m^2 FS: 39.13 % LV ESV: 25.4 ml LV Length: 7.99 cm LV ESV Index: 12 m^2 LVOT Diameter: 2 cm Global Longitudinal Strain:-13.6 Right Ventricle RVOT (PLAX) diameter:3.4 cm Tissue Doppler RV S': 16.5 TAPSE: 2.75 cm Left Atrium LA Systolic Pressure: 17.18 mmHg LA Area: 14.9 cm^2 LA Volume: 36 ml LA Index: 17ml/m^2 Right Atrium RA Area: 9.6 cm^2 Great Vessels Aorta Ascending Aorta: 3.4 cm Aorta Root:3.2 cm Ascending Aorta Index:1.58 cm/m^2 Demographics Age 64 Gender Female Race Height 67.99 in. Weight 226 lbs. 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 [facility] Room 234 Interpreting Melton Ramesh VALENTINO Physician Jaden Physician Viky Damon MD IMG ECHO ORDERABLES Edited Res ult - Final * Hemoglobin A1C w/ Estimated Glucose (10/09/2024 3:56 AM CDT) HGB-A1C 5.7 4.0 - 6.0 % 10/09/2024 10:37 AM CDT [facility] Est Average Glucose 116.9 mg/dL 10/09/2024 10:37 AM CDT [facility] Blood Venipuncture / Unknown 10/09/2024 3:56 AM CDT 10/09/2024 4:01 AM CDT Narrative [facility] - 10/09/2024 10:37 AM CDT HEMOGLOBIN A1C: DIABETIC PATIENTS: WELL-CONTROLLED: 6.2 - 7.0 INTERMEDIATE WELL-CONTROLLED: 7.0 - 9.0 POORLY-CONTROLLED: >9.0 Specimens containing greater than 5% of Hemoglobin F may result in lower than expected % HbA1C results. us Viky Damon MD CHEMISTRY ORDERABLES Final Res ult [facility] [place] [address] * (ABNORMAL) Thyroid Stimulating Hormone (TSH) (10/09/2024 3:56 AM CDT) TSH 108.576(H) 0.300 - 5.000 mIU/L 10/09/2024 7:13 AM CDT [facility] Blood Venipuncture / Unknown 10/09/2024 3:56 AM CDT 10/09/2024 4:01 AM CDT us Michelle Cast APRN, CNP CHEMISTRY ORDERABLES Final Result [facility] [place] [address] * Critical Care (10/08/2024 8:20 PM CDT) Narrative Jim Garrido MD - 10/08/2024 8:20 PM CDT Jim Garrido MD 10/09/2024 12:57 AM Critical Care Performed by: Jim Garrido MD Authorized by: Jim Garrido MD Critical care provider statement: Critical care time (minutes): 40 Critical care time was exclusive of: Separately billable procedures and treating other patients Critical care was necessary to treat or prevent imminent or life-threatening deterioration of the following conditions: Respiratory failure Critical care was time spent personally by me on the following activities: Development of treatment plan with patient or surrogate, evaluation of patient's response to treatment, examination of patient, obtaining history from patient or surrogate, ordering and performing treatments and interventions, ordering and review of laboratory studies, ordering and review of radiographic studies, pulse oximetry, re-evaluation of patient's condition and review of old charts I assumed direction of critical care for this patient from another provider in my specialty: no Care discussed with: admitting provider us Jim Garrido MD PROCEDURE/MINOR SURGICAL ORDERABLES Final Result * COLONOSCOPY (06/19/2010) us Reece Ashton MD PROCEDURE/MINOR SURGICAL ORDER GHANSHYAM Final Result from Last 3 Months or Most Recently Relevant to Health Maintenance Insurance MEDICAID [facility] PLAN [place] [phone] [address] [place] [address] Advance Directives * Full Code (Latest Code Status on File) Date Activated Date Inactivated Comments 10/24/2024 6:14 AM CPR-Full Treat ment: FULL ARREST: Attempt Resuscitation/CPR wit intubation and mechanical ventilation. PRE-ARREST: Use entire range of life support measures to stabilize the patient. * Full Code Date Activated Date Inactivated Comments 10/09/2024 9:32 AM 10/24/2024 6:14 AM CPR-Full Jagdish atment: FULL ARREST: Attempt Resuscitation/CPR wit intubation and mechanical ventilation. PRE-ARREST: Use entire range of life support measures to stabilize the patient. * Full Code Date Activated Date Inactivated Comments 06/06/2024 10:05 AM 10/09/2024 9:32 AM CPR-Full Tr eatment: FULL ARREST: Attempt Resuscitation/CPR wit intubation and mechanical ventilation. PRE-ARREST: Use entire range of life support measures to stabilize the patient. * Full Code Date Activated Date Inactivated Comments 03/21/2024 9:21 AM 06/06/2024 10:05 AM * Full Code Date Activated Date Inactivated Comments 02/25/2024 5:22 AM 03/21/2024 9:21 AM CPR-Full Jagdish atment: FULL ARREST: Attempt Resuscitation/CPR wit intubation and mechanical ventilation. PRE-ARREST: Use entire range of life support measures to stabilize the patient. Care Teams Concrete Finisher Apprentice Relationship Specialty Start Date End Date Lianne Stack MD [address] [place] [address] PCP - General Family Medicine 01/13/23 Ryan Figueroa MD [address] [place] [address] Consulting Physician Pulmonary Disease 01/29/23 Gene Russell MD [address] [place] [address] Consulting Physician Neurology 01/28/24
--- OUTSIDE RECORDS SUMMARY | 2024-12-05 17:34 | XMS_ITS | Encounter Summary ---
Author Organization [facility] Address [address] [place] [address] Phone Care Team Providers Care Business Systems Consultant Name Role Phone Lianne Stack MD Primary Care Provider [phone] Ryan Figueroa MD Unavailable Gene Russell MD Unavailable [phone] Encounter Details Date Type Department Care Team (Latest Contact Info) Description 10/24/2024 Results Follow-Up [facility] - Gastroenterology - [place] [address] [place] [address] Cecilia Mai, RN [place] Pathology Surgical Social History Tobacco Use Types Packs/Day Years Used Date Smoking Tobacco: Former Cigarettes 1 25.3 S tarted: 2000 Alcohol Use Standard Drinks/Week Comments No 0 (1 standard drink = 0.6 oz pur e alcohol) [facility] Utilities Answer Date Recorded In the past 12 months has th [employer] electric, gas, oil, or water company threatened [...] declined 10/23/2024 How often do you attend buddhism or methodist serv ices? Never 10/23/2024 Do you belong to any clubs o r organizations such as buddhism groups, unions, fraternal or athletic groups, or [...] and heating? Not hard at all 10/23/2024 [facility] Occupat ional [facility] - Occupational Stress Questionnaire Answer Date Recorded [...] money to buy more. Never true 10/24/19 25 Within the past 12 months, t he [...] any time in the past 12 m [facility], were you homeless or living in a [...] Medical Group - Pulmonology & Sleep Medicine [facility] [address] [place] [address] Ryan Figueroa MD [address] [place] [address] documented as of this encounter Visit Diagnoses Not on filedocumented in this encounter Care Teams Business Systems Consultant Relationship Specialty Start Date End Date Lianne Stack MD [address] [place] [address] PCP - General Family Medicine 01/13/23 Ryan Figueroa MD [address] [place] [phone] Consulting Physician Pulmonary Disease 01/29/23 Gene Russell MD [address] [place] [phone] Consulting Physician Neurology 01/28/24 documented as of this encounter
--- OUTSIDE RECORDS SUMMARY | 2024-12-05 17:34 | XMS_ITS | Clinical Summary ---
Author Organization [email or web address] Address [address] [place] [address] Care Team Providers Care Area Field Manager Name Role Phone Lianne Stack MD Primary Care Provider [phone] Source Comments [email or web address],non-owned Affiliates and Associated Physician Practices is amultiple site organization consisting of ambulatory clinics and hospital sitesin [place], [place], [place] and [place]. This disclosure is being madepursuant to the Care Everywhere program and may not contain all information available regarding this patient. Last updated 18.[email or web address] Allergies Active Allergy Reactions Criticality Noted Date Comments Clarithromycin Nausea and/or Vomiting,Swelling Medium 06/13/2012 Joint swelling Codeine GI Discomfort Medium 02/10/2018 Gabapentin Other,Swelling Medium 03/23/2017 Joint Swelling Joints swell Sulfamethoxazole Other,Swelling Medium 11/18/2019 Trimethoprim Other,Swelling Medium 11/18/2019 Medications * Be aware that medications may not be up to date on this document. Alwaysverify current medications with the patient. albuterol (PROVENTIL;VERÓNICA ANTONIA) (2.5 MG/3ML) 0.083% nebulizer solution Inhale 2.5 mg by mouth every 4 hours as needed for Shortness of Breath or Wheezing 1 Box 2 8 Active albuterol HFA (PROVENTIL;VERÓNICA ANTONIA;PROAIR) 108 (90 Base) MCG/ACT inhaler INHALE TWO PUFFS BY MOUTH EVERY FOUR HOURS NEEDED FOR SHORTNESS OF BREATH 18 g 5 9 Active Additional Information Patient taking differently: 2 puff Inhalation EVERY 4 HOURS PRN, Informant: Pharmacy, Reported on 07/13/2022 cyclobenzaprine (FLEXERIL) 10 MG tablet TAKE 1 TABLET BY MOUTH AT BEDTIME NEEDED FOR MUSCLE SPASM 1 Active clobetasol (TEMOVATE) 0.05 % creamIndications :Rash and other nonspecific skin eruption Apply to elbows and knees twice daily. 30 days supply. 45 g 5 2 Active rOPINIRole (Requip) 1 MG tablet Take 1 (one) tablet by mouth 4 Active ARIPiprazole (Abilify) 10 MG tablet Take 1 (one) tablet by mouth once daily Active irbesartan (Avapro) 150 MG tablet Take 1 (one) tablet by mouth once daily 4 Active DULoxetine (Cymbalta) 60 MG capsuleIndicatio ns:Major Depressive Disorder Take 1 (one) capsule by mouth once daily Prescribed per psychiatry. Reasons: Major Depressive Disorder 4 Active HM LIDOCAINE PATCH EX Apply 5 % to affected area once daily Active atorvastatin (Lipitor) 40 MG tablet Take 1 (one) tablet by mouth once daily 4 Active fluticasone propionate (Flonase) 50 MCG/ACT nasal spray SHAKE LIQUID AND USE 1 SPRAY IN EACH NOSTRIL EVERY DAY 4 Active hydrocortisone (Hytone) 2.5 % cream Apply to affected area 2 times daily 4 Active pantoprazole (Protonix) 40 MG packet Take 1 (one) packet by mouth Active umeclidinium-chidi anterol (Anoro Ellipta) 62.5-25 MCG/ACT inhaler Inhale 1 (one) puff by mouth once daily 4 Active levothyroxine (Synthroid) 125 MCG tablet Take 1 (one) tablet by mouth daily before breakfast 4 Active Oxygen Use 4 Units/L continuous Active sertraline (Zoloft) 100 MG tablet Take 1 (one) tablet by mouth at bedtime 4 Active Austedo 6 MG tablet Take 1 (one) tablet by mouth 2 times daily 4 Active metoprolol tartrate IR (Lopressor) 25 MG tablet Take 1 (one) tablet by mouth 2 times daily 4 Active naloxone HCl (Narcan) 4 MG/0.1ML nasal spray [place] 1 (one) spray into the nose as needed 4 Active oxyCODONE, immediate release, (Roxicodone) 5 MG tablet TAKE 1 TABLET BY MOUTH EVERY 12 HOURS NEEDED FOR SEVERE PAIN Active polyethylene glycol 3350 (Miralax) 17 g packet Take 17 (seventeen) g by mouth once daily 4 Active levothyroxine (Synthroid) 137 MCG tablet Take 1 (one) tablet by mouth daily before breakfast Active nystatin (Mycostatin) 992247 UNIT/GM creamIndications :Cutaneous Candidiasis Apply to affected area 2 times daily Reasons: Skin Infection due to Lidia Yeast 60 g 1 4 Active famotidine (Pepcid) 20 MG tablet Take 1 (one) tablet by mouth 2 times daily Active Active Problems Problem Noted Date Diagnosed Date Primary fibromyalgia syndrome 10/27/2023 Assessment & Plan (10/18/2024 12:08 PM CDT): Reports increased pain (off duloxetine and only restarted 3 days ago - taking 60mg AM + 30mg bedtime). Noted psychiatry prescribed sertraline 100mg. Risk of serotonin syndrome. Advise to hold further use of duloxetine 30 mg nightly dose until can discuss and review with psychiatry due to my concerns about potential risk of drug interaction effects causing risk for serotonin syndrome and seizures. Assessment & Plan (10/27/2023 12:13 PM CDT): Examination identifies multiple fibromyalgia tender points and [...] as well as fibromyalgia pain (FDA approved). Mechanical complication of implant 07/08/2021 Eczema 10/10/2020 Secondary impetiginization 02/15/2020 Other psoriasis 02/15/2020 Assessment & Plan (10/10/2020 4:34 PM WATCH DIAL MAKER): - BSA < 5% - Encouraged to [...] dorsum. 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 Essential hypertension 09/27/2019 Gait difficulty 09/05/2019 Small fiber neuropathy 09/05/2019 Weakness 08/29/2019 Neuropathy 08/29/2019 ILD (interstitial lung disease) 02/21/2019 Tobacco use disorder, continuous 02/21/2019 Intractable migraine without aura and without status migrainosus 06/20/2018 Allergic rhinitis 02/10/2018 Chronic daily headache 02/10/2018 Depression 02/10/2018 JULIAN (obstructive sleep apnea) 02/10/2018 Overview (02/10/2018): Overview: ([facility] - repeated - at time patient on 20/16 cm water with 4 l oxygen; AHI=9.4 (20 hypopneae) respiratory events/h; Dioni SaO2=74%; no report of % of recording below SaO2 of 88%; latency to sleep=5min; Efficiency=90%; Stage R=0%;85.0 kg; 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 Acquired hypothyroidism 07/31/2016 MRSA colonization 05/03/2016 Orthostatic hypotension 05/01/2016 GERD (gastroesophageal reflux disease) 1 RLS (restless legs syndrome) Resolved Problems Problem Noted Date Diagnosed Date Resolved Date Polymyalgia rheumatica syndrome (HCC) ? 10/13/2023 10/18/2024 Overview (10/13/2023): Sudden onset symptoms late 08/2023 (see ED report but no lab) w/ some improvement on prednisone 50 mg daily x 5 days. PCP started prednisone 15mg QD for PMR? Assessment & Plan (10/27/2023 12:10 PM CDT): Sudden onset symptoms late 08/2023 (see ED [...] taper off over the next 10 days. History of total knee arthroplasty 07/08/2021 10/18/2024 Multiple joint pain 07/08/2021 10/19/19 25 History of MRSA infection 10/10/2020 Assessment & Plan (10/10/2020 4:35 PM WATCH DIAL MAKER): - Cont Hibaclens daily Dizziness 08/29/2019 10/18/2024 SOB (shortness of breath) 08/29/2019 Methamphetamine abuse 08/29/20192024 Near syncope 08/29/2019 10/18/2024 History of pancreatitis 02/10/201809/30 History of Helicobacter pylori infection 02/10/2018 10/18/2024 History of alcohol use 07/31/201610/18 Overview (02/10/2018): Overview: In questionnaire reported 12 pack/day until 1996. Secondary hypertension 07/31/201610/18 Lightheadedness 04/30/2016 10/18/2024 Encounters Date Type Department Care Team Description 10/18/2024 11:40 AM CDT Office Visit [facility] - Rheumatology [address] [place] [address], [address] [place] [address] Logan Mancilla DO Primary fibromyalgia syndrome (Primary Dx) from Last 3 Months Immunizations Immunization Administration Dates Next Due TDAP (7yrs+) 06/05/2016 Family History Medical History Relation Name Comments None Known Brother Alcohol abuse Father COPD - Chronic Obstructive P ulmonary Disease Father None Known Maternal Aunt None Known Maternal Grandfather None Known Maternal Grandmother None Known Maternal Uncle Cancer - Breast Mother None Known Other None Known Paternal Aunt Alcohol abuse Paternal Grandfather None Known Paternal Grandmother None Known Paternal Uncle Cancer - Breast Sister s/p double m asectomy Asthma Neg Hx CVA Neg Hx Cancer - Other Neg Hx Cancer - Skin, Melanoma Neg Hx Cancer - Skin, Non Melanoma Neg Hx Dementia Neg Hx Depression Neg Hx Drug Abuse Neg Hx Eczema Neg Hx Glaucoma Neg Hx Gout Neg Hx Hemophilia Neg Hx Leukemia Neg Hx Migraine Neg Hx Multiple Sclerosis Neg Hx Other Neg Hx Psoriasis Neg Hx Thyroid Disease Neg Hx Relation Name Status Comments Brother Father Maternal Aunt Maternal Grandfather Maternal Grandmother Maternal Uncle Mother Other Paternal Aunt Paternal Grandfather Paternal Grandmother Paternal Uncle Sister Social History Tobacco Use Types Packs/Day Years Used Date Smoking Tobacco: Every Day Cigarettes 0.5 45 Smokeless Tobacco: Never Alcohol Use Standard Drinks/Week Comments Not Currently 0 (1 standard drink = 0.6 oz pur e alcohol) last drink 23 years ago PHQ-2 Answer Date Recorded Patient Health Questionnaire-2 Score 2 10/18/2024 Comments No Sex and Gender Information Value Date Recorded Sex Assigned at Not on file Legal Sex Female 6:25 AM WATCH DIAL MAKER Gender Identity Not on file Sexual Orientation Not on file Last Filed Vital Signs Vital Sign Reading Time Taken Comments Blood Pressure 110/70 10/18/2024 11:21 AM CDT Pulse 71 10/18/2024 11:21 AM CDT Temperature 36.1 C (97 F) 10/18/2024 11:21 AM CDT Respiratory Rate 20 10/18/2024 11:21 AM CDT Oxygen Saturation 97% 10/18/2024 11:21 AM CDT Inhaled Oxygen Concentration 35% 09/07/2019 1 2:25 AM WATCH DIAL MAKER Weight 106.6 kg (235 lb) 10/18/2024 11:21 AM CDT Height 170.2 cm (5' 7 ) 07/06/2024 12:54 PM WATCH DIAL MAKER Body Mass Index 36.81 07/06/2024 12:54 PM WATCH DIAL MAKER Plan of Treatment Upcoming Encounters Date Type Department Care Team (Late st Contact Info) Description 01/17/2025 11:20 AM CDT Office Visit [facility] - Rheumatology [address], [address] [place] [address] Logan Mancilla DO [address] [place] [address] Health Maintenance Due Date Last Done Comments COLOGUARD (AGES 45-75) - COLON CA SCREENING 1961 COLON MONITORING 1961 COLONOSCOPY - COLON CA SCREENING 1961 CT COLONOGRAPHY - COLON CA SCREENING 1961 Colorectal Cancer Screening 1961 FIT - COLON CA SCREENING 1961 FLEX SIG - COLON CA SCREENING 1961 PNEUMOCOCCAL VACCINE 50+ (1 of 2 - PCV) 1980 PAP with HPV 1991 ZOSTER VACCINE (1 of 2) 2011 Respiratory Syncytial Virus (RSV) Vaccine Pt: or over 60 yrs (1 - Risk 60-74 years 1-dose series) 2021 MAMMOGRAM 03/18/2022 03/18/2020 LUNG CANCER SCREENING 02/07/2024 02/06/2023 COVID-19 VACCINE (2 - season) 2024 04/09/2021 INFLUENZA VACCINE (Season Ended) 2025 SCREENING FOR DIABETES 07/13/2025 , 07/14/2021, 05/14/2021, Additional history exists DTAP/TDAP/TD VACCINES (2 - Td or Tdap) 06/05/2026 06/05/2016 HEPATITIS C SCREENING Completed 06/08/2019 HIV SCREENING Completed 10/13/2022, 08/28/2019 DEPRESSION SCREENING Completed 10/18/2024 HEPATITIS B VACCINE Aged Out No longe r eligible based on patient's age to complete this topic HIB VACCINE Aged Out No longer eligi ble based on patient's age to complete this topic HPV VACCINE Aged Out No longer eligi ble based on patient's age to complete this topic MENINGOCOCCAL (Group B) VACCINE SHARED DECISION-MAKING Aged Out No longer eligible based on patient's age to complete this topic MENINGOCOCCAL GROUPS A/C/Y/W VACCINE Aged Out No longer eligible based on patient's age to complete this topic Procedures Procedure Name Priority Date/Time Associated Diagnosis Comments COMPREHENSIVE METABOLIC PANEL Routine 07/13/2022 2:07 PM WATCH DIAL MAKER Arthralgia, unspecified joint MAMMO BILAT SCREENING Routine 03/18/2020 1:16 PM CDT Encounter for screening mammogram for breast cancer HIV-1 HIV-2 ANTIGEN/ANTIBODY STAT 08/28/2019 4:47 PM WATCH DIAL MAKER HEPATITIS C ANTIBODY Routine 06/08/2019 1:05 PM WATCH DIAL MAKER Psoriasis Arthralgia, unspecified joint from Last 3 Months or Most Recently Relevant to Health Maintenance Results * (ABNORMAL) COMPREHENSIVE METABOLIC PANEL (07/13/2022 2:07 PM WATCH DIAL MAKER) BUN 17 7 - 26 mg/dL 07/13/2022 2:55 PM [facility] Creatinine 1.03(H) 0.56 - 0.96 mg/dL 07/13/2022 2:55 PM [facility] Sodium 137 136 - 145 mmol/L 07/13/2022 2:55 PM [facility] Potassium 4.2 3.5 - 4.5 mmol/L 07/13/2022 2:55 PM [facility] Chloride 104 98 - 107 mmol/L 07/13/2022 2:55 PM [facility] CO2 28 22 - 29 mmol/L 07/13/2022 2:55 PM [facility] Glucose 88 70 - 115 mg/dL 07/13/2022 2:55 PM [facility] Calcium 9.3 8.4 - 10.2 mg/dL 07/13/2022 2:55 PM [facility] Protein Total 7.0 6.0 - 8.3 g/dL 07/13/2022 2:55 PM [facility] Albumin 3.4 3.4 - 5.0 g/dL 07/13/2022 2:55 PM [facility] Bilirubin Total 0.3 0.2 - 1.2 mg/dL 07/13/2022 2:55 PM [facility] Alkaline Phosphatase 161(H) 40 - 150 U/L 07/13/2022 2:55 PM [facility] ALT 45 5 - 55 U/L 07/13/2022 2:55 PM [facility] AST 31 5 - 34 U/L 07/13/2022 2:55 PM [facility] Anion Gap 9 8 - 18 07/13/2022 2:55 PM [facility] BUN/Creatinine Ratio 17 7 - 23 07/13/2022 2:55 PM [facility] Osmolality Calculated 285 270 - 300 mOsm/kg 07/13/2022 2:55 PM [facility] Albumin/Globulin Ratio 0.9(L) 1.1 - 2.3 07/13/2022 2:55 PM [facility] eGFR by CKD-EPI 62(L) >=90 mL/min/1.7 3 m2 07/13/2022 2:55 PM [facility] Blood BLOOD SPECIMEN / Unknown Lab Venipuncture / Unknown 07/13/2022 2:07 PM WATCH DIAL MAKER 07/13/2022 2:[address] [facility] Tae Bassett MD LAB - CHEMISTRY ORDERABLES Final Result [facility] [address] [place] [address], [facility] [phone] * Screening mammogram-[facility] (03/18/2020 1:16 PM CDT) Anatomical Region Laterality Modality Breast Bilateral Mammography 03/19/2020 8:39 AM CDT Impressions 03/19/2020 9:19 AM CDT IMPRESSION: No mammographic evidence of malignancy. ASSESSMENT: BI-RADS Category 1: Negative mammogram. RECOMMENDATION: Bilateral screening mammogram in one year. Dictated by Barbara Beck MD (vice president diversity). I, Dr. HADLEY POWELL M.D. have personally reviewed and interpreted this examination/study. This report was electronically signed by HADLEY POWELL M.D. on 03/19/2020 9:19 AM . Narrative 03/19/2020 9:19 AM CDT SCREENING MAMMOGRAM DATE: 03/18/2020. COMPARISON: 09/25/2014 and priors dating back to 10/22/2009 performed at [facility]. HISTORY: Screening mammogram. TECHNIQUE: Images were performed using 3D tomosynthesis images with reconstructed/synthetic 2D images and CAD analysis. BREAST COMPOSITION: There are scattered areas of fibroglandular density. FINDINGS: There is no suspicious mass, clustered microcalcification, or architectural distortion in either breast on 2D or 3D images. There has been no change in the mammographic appearance compared with the prior study. Claudette Dangelo MD MAMMO ORDERABLES Final Result * HIV-1 HIV-2 ANTIGEN/ANTIBODY (08/28/2019 4:47 PM WATCH DIAL MAKER) Pathologist [facility] HIV Antigen/Antibod y 1 & 2 Non-reacti ve Non-react tommy 08/28/2019 5:38 PM WATCH DIAL MAKER [facility] Comment: Neither HIV-1 p24 Antigen nor HIV-1/HIV-2 Antibodies are detected. Blood BLOOD SPECIMEN / Unknown Venipuncture / Unknown 08/28/2019 4:47 PM WATCH DIAL MAKER 08/28/2019 4:52 PM WATCH DIAL MAKER Makayla Zaldivar MD LAB - HEMATOLOGY ORDERABLES Shelby luu Result [address] [phone] * HEPATITIS C ANTIBODY (06/08/2019 1:05 PM WATCH DIAL MAKER) Pathologist [facility] Hepatitis C Antibody Non-react tommy Non-reac tive 06/08/2019 2:14 PM WATCH DIAL MAKER [facility] Comment: Hepatitis C Antibody screen indicates no serologic evidence of past or current infection with Hepatitis C Virus. Patients with unexplained liver disease who are immunocompromised or suspected of having acute Hepatitis C infection may benefit from Nucleic Acid Test (JAMIL) for Hepatitis C Viral RNA to confirm Hepatitis C status. Blood BLOOD SPECIMEN / Unknown Lab Venipuncture / Unknown 06/08/2019 1:05 PM WATCH DIAL MAKER 06/08/2019 1:17 PM WATCH DIAL MAKER us Michelle Agee MD LAB - CHEMISTRY ORDERABLES F inal Result [address] [phone] from Last 3 Months or Most Recently Relevant to Health Maintenance Insurance DR [address] [place] [id number] [facility] [address] [place] [address] [facility] [address] [place] [address] [facility] Advance Directives * Full Code (Latest Code Status on File) Date Activated Date Inactivated Comments 09/05/2019 9:30 PM 09/07/2019 10:27 PM * Full Code Date Activated Date Inactivated Comments 08/29/2019 1:36 AM 08/29/2019 4:13 PM Care Teams Area Field Manager Relationship Specialty Start Date End Date Lianne Stack MD [address] [place] [address] PCP - General Family Medicine 07/06/24
--- OUTSIDE RECORDS SUMMARY | 2024-12-05 17:34 | XMS_ITS | Clinical Summary ---
Author Organization [facility] Address [address] [place] [address] Care Team Providers Care Sports Photographer Name Role Phone Glenroy Power MD Primary Care Provider [phone] Allergies Active Allergy Reactions Criticality Noted Date Comments Clarithromycin Swelling Medium 11/18/2019 Codeine GI Upset Low 02/10/2018 Near fatal reaction leading to coma per sister Gabapentin Joint Pain Medium 11/18/2019 Sulfamethoxazole Swelling,Joint Pain Medium 11/18/2019 Trimethoprim Swelling,Joint Pain Medium 11/18/2019 Medications levothyroxine 137 MCG tablet Take 137 mcg by mouth daily. 8 Active lisinopril 20 MG tablet Take 20 mg by mouth daily. 8 Active folic acid 1 MG tablet Take 1 mg by mouth daily. 9 Active vitamin D2, ergocalciferol, (VITAMIN D, ERGOCALCIFEROL, ) 07608 UNITS capsule Take 50,000 Units by mouth once a week. 0 Active loratadine 10 MG tablet Take 10 mg by mouth daily. 9 Active nystatin cream Apply 1 Application topically 2 (two) times a day. 0 Active mirtazapine 15 MG tablet Take 15 mg by mouth nightly at bedtime. 0 Active potassium chloride CR 10 MEQ tablet Take 10 mEq by mouth daily. 9 Active traZODone 100 MG tablet Take 200 mg by mouth nightly at bedtime. Active amLODIPine 5 MG tablet Take 5 mg by mouth daily. Active Active Problems Problem Noted Date Diagnosed Date Acute encephalopathy 11/18/2019 Social History Tobacco Use Types Packs/Day Years Used Date Smoking Tobacco: Every Day Tobacco Cessation:Ready to Q uit: No; Counseling Given: Yes Comments Unknown Sex and Gender Information Value Date Recorded Sex Assigned at Not on file Legal Sex Female 7:10 PM CDT Gender Identity Not on file Sexual Orientation Not on file Last Filed Vital Signs Vital Sign Reading Time Taken Comments Blood Pressure 150/89 11/22/2019 2:47 PM CDT Pulse 73 11/22/2019 2:47 PM CDT Temperature 36.7 C (98.1 F) 11/22/2019 2:47 PM CDT Respiratory Rate 17 11/22/2019 5:19 AM CDT Oxygen Saturation 99% 11/22/2019 2:47 PM CDT Inhaled Oxygen Concentration - - Weight 53 kg (116 lb 13.5 oz) 11/21/2019 4:42 AM CDT Height 162.6 cm (5' 4 ) 11/18/2019 8:26 PM CDT Body Mass Index 20.06 11/18/2019 8:26 PM CDT Plan of Treatment Health Maintenance Due Date Last Done Comments Cervical Cancer Screening Pa p Smear (Age 30 to 64) Every 3 Years 1961 Colorectal Cancer Screening Colonoscopy (10 Years) 1961 Annual Physical 1964 Hepatitis C 1979 Pneumococcal Vaccine: 50+ Ye ars (1 of 2 - PCV) 1980 Cervical Cancer Screening Pa p with HPV Testing (Age 30 to 64) Every 5 Years 1991 Cervical Cancer Screening with HPV 1991 Mammogram Screening 2001 Zoster Vaccines (1 of 2) 2011 COVID-19 Vaccine ( - 2023-2 5 season) 2024 DTaP, Tdap and Td Vaccines ( 2 - Td or Tdap) 06/05/2026 06/05/2016 RSV Immunization or 60+ Years (1 - 1-dose 75+ series) 2036 Meningococcal B Vaccine Aged Out No l onger eligible based on patient's age to complete this topic Meningococcal Vaccine Aged Out No radha yadira eligible based on patient's age to complete this topic RSV Immunizations Under 20 Months Aged Out No longer eligible based on patient's age to complete this topic Insurance [place] Advance Directives * Full Code (Latest Code Status on File) Date Activated Date Inactivated Comments 11/18/2019 10:02 PM 11/22/2019 9:57 PM Care Teams Sports Photographer Relationship Specialty Start Date End Date Glenroy Power MD [address] [place] [address] PCP - General INTERNAL MEDICINE 11/18/19
--- OUTSIDE RECORDS SUMMARY | 2024-12-05 17:35 | XMS_ITS | Continuity of Care Document ---
Author Organization [facility] Address [address] [place] [address] [address] [place] [address] Phone Care Team Providers Care Fishing Boat Captain Name Role Phone Anitha Zaldivar Unavailable Unavailable Advance Directives Directive Yes / No Effective Date File Name No Information Encounters Encounter Description Practice Location Reason(s) For Visit Diagnoses Date Provider Providers Copied on Encounter [facility], [id number] [place] [address] [address], [place], [place], [id number], [place] tel:[phone] [facility] No Information Sep-0 5200 [address] Kayley Welsh. [address] , [address], [place], [address], [place]. tel:[phone] Family History Family Member Type Diagnosis Age [...]
[2024-12-05 17:44] VITALS: BP 124/91; PULSE 95; RESP 18; TEMP 36.2; O2SAT 96
--- NOTE | 2024-12-05 18:00 | ED.GENADULT ---
HPI - General Adult General Chief complaint: Skin/Abscess/Foreign Body Stated complaint: Skin Sore Source: patient Mode of arrival: ambulatory Limitations: no limitations History of Present Illness HPI narrative: Patient presents for evaluation of skin concerns. She reports lesions to her face, and arms. 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 She states she has been told in the past that she has MRSA. She also reports some skin irritation to the bilateral inguinal regions. She states she was seen at [facility] in the emergency department was given nystatin powder and cream for the symptoms. Both medications were effective. She is not diabetic. She denies any fever, chills, nausea, vomiting. Related Data Home Medications ?Medication ?Instructions ?Recorded ?Confirmed ?Last Taken ?Type sertraline 100 mg tablet 100 mg PO DAILY 11/29/22 03/10/23 11/28/22 14:00 History albuterol sulfate 90 mcg/actuation 2 inh inhalation Q4-6H PRN 02/26/23 03/10/23 Unknown History aerosol inhaler (ProAir HFA) Shortness Of Breath aripiprazole 10 mg tablet 10 mg PO HS 02/26/23 03/10/23 Unknown History aripiprazole 15 mg tablet mg 12/05/24 Unknown History atorvastatin 40 mg tablet mg 12/05/24 Unknown History clonidine HCl 0.1 mg tablet mg 12/05/24 Unknown History deutetrabenazine 9 mg tablet mg PO 12/05/24 Unknown History (Austedo) duloxetine 30 mg capsule,delayed mg PO 12/05/24 Unknown History release duloxetine 60 mg capsule,delayed mg PO 12/05/24 Unknown History release hydroxyzine pamoate 50 mg capsule mg 12/05/24 Unknown History levothyroxine 150 mcg tablet mcg 12/05/24 Unknown History nystatin 100,000 unit/gram topical topical 12/05/24 Unknown History cream nystatin 100,000 unit/gram topical topical 12/05/24 Unknown History powder (Klayesta) pregabalin 75 mg capsule mg 12/05/24 Unknown History ropinirole 1 mg tablet mg 12/05/24 Unknown History tamsulosin 0.4 mg capsule mg PO 12/05/24 Unknown History Allergies Allergy/AdvReac Type Severity Reaction Status Date / Time sulfamethoxazole Allergy Mild JOINT Verified 12/05/24 17:43 SWELLING clarithromycin Allergy Unknown Swelling Verified 12/05/24 17:43 gabapentin Allergy Unknown Joint pain Verified 12/05/24 17:43 Influenza Virus Vaccines Allergy Unknown Unknown Verified 12/05/24 17:43 trimethoprim Allergy Unknown JOINT Verified 12/05/24 17:43 SWELLING codeine AdvReac Unknown NAUSEA - Verified 12/05/24 17:43 CAN TAKE LORTAB Review of Systems Review of Systems: CONSTITUTIONAL: Denies fever, chills, or sweats. EYES: Denies visual changes, redness, or discharge. ENT: Denies rhinorrhea, congestion, sore throat, or otalgia. CARDIOVASCULAR: Denies chest pain, palpitations, or edema. RESPIRATORY: Denies cough or dyspnea. GASTROINTESTINAL: Denies abdominal pain, nausea, vomiting, or diarrhea. GENITOURINARY: Denies dysuria or hematuria. SKIN: Reports skin lesions to the face and bilateral upper extremities. Reports skin irritation to bilateral inguinal regions. MUSCULOSKELETAL: Denies back pain, joint pain, or myalgia. NEUROLOGIC: Denies headache, numbness, dizziness, or weakness. PSYCHIATRIC: Denies anxiety or depression. [facility] Past Medical History Medical History Erosive gastritis Adenomatous colon polyp Nausea & vomiting GERD (gastroesophageal reflux disease) Chronic back pain Pancreatitis Diverticulosis Tracheostomy dependence COPD (chronic obstructive pulmonary disease) Peripheral neuropathy Seizures TIA (transient ischemic attack) Pneumonia Anxiety and depression Hypertension Hypothyroidism JULIAN (obstructive sleep apnea) Pulmonary emphysema Pure hypercholesterolemia Failure to thrive in adult Chemical dependency Surgical History Surgical History Hx of tonsillectomy Secondary to sepsis/ARDS Total knee replacement status Hx of cholecystectomy H/O neck surgery C6-7 fusion Family History Family History Sibling Patient's sister is in good health Patient's brother is in good health Depression Mother Family history of malignant neoplasm of breast in first degree relative, Onset Age: 26 Patient's mother is Father Patient's father is in good health Other Family history of alcoholism Family history of lung disease Family history of malignant neoplasm of male breast Family history of migraine headaches Family history of obesity Hypertension Social History Social History Social History: The patient continues to smoke 1/2 a pack of cigarettes per day. She lives home alone. She had 1 daughter who is now and she has two other children that her still living. She is currently seperated from her . She is disabled. Code status full code Smoking packs per day: 0.5 Smoking cigarettes per day: 10.0 Years smoked: 45 Smoking pack-years: 22.50 Smoking status: Current every day smoker Tobacco type: cigarettes Second hand tobacco smoke exposure: No Smoking end date: 08/02/15 Alcohol intake: former Alcohol use details: recovering alcoholic 1999 Substance use: former Substance use type: marijuana and methamphetamine Lack of Transportation: YES Lack of Food: Sometimes True Current Housing: I Have Housing Concerned About Future Housing: No Difficulty Paying Gas/Electric Bills: No Difficulty Paying for Meds: No Currently Unemployed: No Education: High School Diploma/GED Difficulty w/ Childcare or Family Care: No Living arrangements: alone Gender identity (if verbalized by the patient): Female Spiritual care concerns: No Exam Narrative: GENERAL: Well-appearing, well-nourished, and in no acute distress. HEAD: Normocephalic, atraumatic. EYES: PERRLA and EOMI. ENT: Nares clear, no rhinorrhea or epistaxis. Mucous membranes moist. Oropharynx without tonsillar hypertrophy exudate or other lesions. Bilateral TMs pearly rosenberg nonbulging NECK: Supple. No adenopathy or masses. No carotid bruits or JVD CHEST: Clear to auscultation. No respiratory distress. No wheezes rales or rhonchi HEART: Regular rate and rhythm. No murmur heard. Normal peripheral pulses. ABDOMEN: Soft, nontender, nondistended, normal active bowel sounds. EXTREMITIES: Normal range of motion. No edema. SKIN: There are several scabbed lesions to bilateral forearms. There is a scabbed lesion to the right side of her forehead. There are areas of excoriation to bilateral inguinal regions. NEURO: No focal deficits. Alert and oriented x3. PSYCH: Normal mood and affect. Course Course Emergency Course: This is a 64-year-old female who presented for evaluation of skin concerns. Lesions to the face and arms appear to be impetigo secondary to picking associated with methamphetamine use. There does not seem to be associated cellulitis. Encourage sobriety. Provider prescription for mupirocin. The areas to her bilateral inguinal regions appear to be tinea. Refill her nystatin. She should follow-up with her primary provider go to the ER for worsening symptoms. Patient in agreement with plan of care. Level of Care: Express Care Visit Vital Signs Vital signs: Vital Signs Temperature 36.2 C L 12/05/24 17:44 Pulse Rate 95 12/05/24 17:44 Respiratory Rate 18 12/05/24 17:44 Blood Pressure 124/91 H 12/05/24 17:44 Pulse Oximetry 96 12/05/24 17:44 Oxygen Delivery Room Air 12/05/24 17:44 Temperature 36.2 C L 12/05/24 17:44 Pulse Rate 95 12/05/24 17:44 Respiratory Rate 18 12/05/24 17:44 Blood Pressure 124/91 H 12/05/24 17:44 Pulse Oximetry 96 12/05/24 17:44 Oxygen Delivery Room Air 12/05/24 17:44 Medical Decision Making Vital Signs Vital Signs: Vital Signs Temperature 36.2 C L 12/05/24 17:44 Pulse Rate 95 12/05/24 17:44 Respiratory Rate 18 12/05/24 17:44 Blood Pressure 124/91 H 12/05/24 17:44 Pulse Oximetry 96 12/05/24 17:44 Oxygen Delivery Room Air 12/05/24 17:44 Temperature 36.2 C L 12/05/24 17:44 Pulse Rate 95 12/05/24 17:44 Respiratory Rate 18 12/05/24 17:44 Blood Pressure 124/91 H 12/05/24 17:44 Pulse Oximetry 96 12/05/24 17:44 Oxygen Delivery Room Air 12/05/24 17:44 Discharge Plan Discharge Clinical Impression: Impetigo, Tinea Patient Disposition: Home Condition: Stable Instructions: Antibiotic Form, Impetigo (DC), Skin Yeast Infection (ED) Patient Language: Belarusian Prescriptions: New nystatin 100,000 unit/gram powder 1 applic topical BID Qty: 180 2RF Rx Instructions: Apply to bilateral inguinal(groin) region mupirocin [Centany] 2 % ointment 1 applic topical TID Qty: 50 1RF Rx Instructions: Apply to face and arms No Action atorvastatin 40 mg tablet clonidine HCl 0.1 mg tablet ropinirole 1 mg tablet hydroxyzine pamoate 50 mg capsule tamsulosin 0.4 mg capsule PO nystatin 100,000 unit/gram cream TOPICAL levothyroxine 150 mcg tablet nystatin [Klayesta] 100,000 unit/gram powder TOPICAL aripiprazole 15 mg tablet duloxetine 30 mg capsule,delayed release(DR/EC) PO duloxetine 60 mg capsule,delayed release(DR/EC) PO pregabalin 75 mg capsule Austedo 9 mg tablet PO aripiprazole 10 mg tablet 10 mg PO HS albuterol sulfate [ProAir HFA] 90 mcg/actuation HFA aerosol inhaler 2 inh inhalation Q4-6H PRN (Reason: Shortness Of Breath) sertraline 100 mg tablet 100 mg PO DAILY amlodipine 5 mg tablet 5 mg PO DAILY Qty: 30 5RF cyclobenzaprine 10 mg tablet 10 mg PO HS PRN (Reason: muscle spasm) Qty: 20 0RF Rx Instructions: must last 30 days levothyroxine 125 mcg tablet 125 mcg PO DAILY Qty: 90 0RF pantoprazole 40 mg tablet,delayed release (DR/EC) See Rx Instructions .ROUTE .COMPLEX Qty: 180 2RF Dose Instruction: TAKE 1 TABLET BY MOUTH EVERY 12 HOURS Rx Instructions: TAKE 1 TABLET BY MOUTH EVERY 12 HOURS Follow-up/Referrals: Zee,Lianne Byrne MD [Primary Care Provider] - Time of Disposition: 17:58
== END 2024-12-05 18:04 | disposition home or self-care (01) ==
PROVIDERS: Emergency Provider Nurse Practitioner; PCP Family Medicine
DX: L01.00 Impetigo, unspecified (principal); B35.9 Dermatophytosis, unspecified; F15.90 Other stimulant use, unspecified, uncomplicated; F17.210 Nicotine dependence, cigarettes, uncomplicated; K21.9 Gastro-esophageal reflux disease without esophagitis; J44.9 Chronic obstructive pulmonary disease, unspecified; G62.9 Polyneuropathy, unspecified; Z86.73 Personal history of transient ischemic attack (TIA), and cerebral infarction without residual deficits; I10 Essential (primary) hypertension; E03.9 Hypothyroidism, unspecified; E78.00 Pure hypercholesterolemia, unspecified; F41.9 Anxiety disorder, unspecified; F32.A Depression, unspecified; Z93.0 Tracheostomy status
CPT/HCPCS: 99213; G0463

== ENCOUNTER 2024-12-07 15:31 | Emergency (ER) | payer OTHER, SELFPAY ==
--- OUTSIDE RECORDS SUMMARY | 2024-12-07 15:33 | XMS_ITS | Encounter Summary ---
Author Organization [facility] Address [address] [place] [address] Phone Care Team Providers Care Side Laster Staple Name Role Phone Lianne Stack MD Primary Care Provider Ryan Figueroa MD Unavailable Gene Russell MD Unavailable [phone] Reason for Visit * Reason Comments Medication Refill Encounter Details Date Type Department Care Team (Late st Contact Info) Description 12/25/2023 Refill [facility] - Pulmonology & Sleep Medicine [facility] [address] [place] [address] Ryan Figueroa MD [address] [place] [address] Medication Refill Social History Tobacco Use Types Packs/Day Years Used Date Smoking Tobacco: Every Day Cigarettes 1 25.3 Started: 1999 Alcohol Use Standard Drinks/Week Comments No 0 (1 standard drink = 0.6 oz pur e alcohol) [facility] Utilities Answer Date Recorded In the past 12 months has e [employer], gas, oil, or water company threatened to [...] declined 12/15/2023 How often do you attend moravian or judaism serv ices? Patient declined 12/15/2023 Do you belong to any clubs o r organizations such as moravian groups, unions, fraternal or athletic groups, or [...] medical care, and heating? Patient declined 12/15/2023 [facility] of Occupat ional [facility] - Occupational Stress Questionnaire Answer Date Recorded [...] place to sleep or slept in a senior care (including now)? Patient declined 12/15/2023 Sexually Active [...] AM CDT Medication(s) refilled and signed per [facility] Chronic Medication Refill Standing Order for [...] Ryan Figueroa MD [facility] Showing future appointments within next 90 days [...] Medical Group - Pulmonology & Sleep Medicine [facility] [address] [place] [address] Ryan Figueroa MD [address] [place] [address] documented as of this encounter Visit Diagnoses Diagnosis Restless legs syndrome (RLS) documented in this encounter Additional Health Concerns Infection Onset Date Last Indicated Resolved Time COVID - 19 02/25/2024 02/25/2024 02/25/2024 4:10 AM CDT 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 02/25/2024 06/06/2024 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
[2024-12-07 15:34] VITALS: BP 131/101; PULSE 106; RESP 20; TEMP 36.6; O2SAT 96
--- OUTSIDE RECORDS SUMMARY | 2024-12-07 15:34 | XMS_ITS | Data Portability ---
Author Organization [facility] [place] Address [address] [place] [place] [address] Care Team Providers Care Insurance Claim Representative Name Role Phone JAVON HARLEY Primary Care Provider Assessment No assessment recorded. Plan of Treatment Reminders Order Date Submit Date Provider Last Modified By Organization Details Last Modified Time Details Appointments None recorded. Lab hsv (1+2) igm, serum 2022 023 [facility] (Lab), [address] [place], [address], 3 17:22:39 hsv-1 igg Ab, serum 2022 023 [facility] (Lab), [address] [place], [address], 3 17:22:38 hsv-2 igg Ab, serum 2022 023 [facility] (Lab), [address] [place], [address], 3 17:22:39 hbcab (hepatitis B core Ab) igm, serum 2022 023 [facility] (Lab), [address] [place], [address], 3 17:22:38 HBsAg (hepatitis B surface Ag), serum 2022 023 [facility] (Lab), [address] [place], [address], 3 17:22:37 hepatitis C virus Ab, serum 2022 023 [facility] (Lab), [address], [place], [address], 3 17:22:37 RPR (rapid plasma reagin), serum 2022 023 [facility] (Lab), [address], [place], [address], 3 17:22:38 unlisted lab - HIV 1/2 antigen/ant ibody, reflex confirmatio n 2022 023 [facility] (Lab), [address], [place], [address], 3 17:22:36 Referral None recorded. Procedures None recorded. Surgeries None recorded. Imaging None recorded. Medication Orders nystatin 100,000 unit/gram topical cream 2023 024 [id number], [address], [place], [place], [id number], 4 14:36:37 Valtrex 1 gram tablet 2022 023 [facility][id number], [address], [place], [place], [id number], 3 16:08:58 Patient TargetsNo targets recorded. Patient [...] nce of HIV infec tion. Not Available [facility] (Lab) [address], [place], [address], 10/17/2022 17:22:36 10/14/19 23 10/13/2022 HEPAT ITIS C ANTIB ANISH SCREE N, REFLE X TO CONFI RMATI ON hepatitis C antibody Non-re active non-re active Antib odies to HCV Not Detec joão, does not exclu de the possi bilit y of expos ure to HCV. Not Available [facility] (Lab) [address], [place], [address], 10/17/2022 17:22:37 10/14/19 23 10/13/2022 HEPAT ITIS B SURFA CE ANTIG EN hepatitis B surface antigen Non-re active non-re active This assay was perfo rmed using [employer] ratio n reage nts and test kits. Value s obtai isreal with other assay metho ds or kits canno t be used inter benites eably . Not Available [facility] (Lab) [address], [place], [address], 10/17/2022 17:22:37 10/14/19 23 10/13/2022 RPR SCREE N/REF MADISON TITER /FTA RPR screen Nonrea ctive nonrea ctive Not Available [facility] (Lab) [address], [place], [address], 10/17/2022 17:22:37 10/14/19 23 10/13/2022 HEPAT ITIS B CORE, IGM hepatitis B core IgM antibody Negati ve negati ve Not Available [facility] (Lab) [address] [place], [address], 10/17/2022 17:22:38 10/14/19 23 10/13/2022 HERPE S SMPLE X VIRUS TYPE 1 SPECI FIC AB, IGG herpes simplex virus 1 IgG Positi ve negati ve abnormal Not Available [facility] (Lab) [address], [place], [address], 10/17/2022 17:22:38 10/14/19 23 10/13/2022 HERPE S SMPLE X VIRUS TYPE 1 SPECI FIC AB, IGG herpes simplex virus 1 IgG, quant 4.4 ai 0.0-0. 8 high Not Available [facility] (Lab) [address], [place], [address], 10/17/2022 17:22:38 10/14/19 23 10/13/2022 HERPE S SIMPL EX VIRUS TYPE 2 SPECI FIC AB, IGG herpes simplex virus 2 IgG Negati ve negati ve Not Available [facility] (Lab) [address], [place], [address], 10/17/2022 17:22:39 10/14/19 23 10/13/2022 HERPE S SIMPL EX VIRUS TYPE 2 SPECI FIC AB, IGG herpes simples virus 2 IgG, quant <0.2 ai 0.0-0. 8 Not Available [facility] (Lab) [address], [place], [address], 10/17/2022 17:22:39 10/14/19 23 10/13/2022 HERPE S SIMPL EX VIRUS , 1 AND 2 IGM, IFA hsv 1 IgM screen NEGATI VE Not Available [facility] (Lab) [address] [place], [address], 10/17/2022 17:22:39 10/14/19 23 10/13/2022 HERPE S [...] cteri stics have been deter mined by [employer] ostic [employer]. It has not been clear ed or appro alvaro by FDA. This assay has been valid ated pursu ant to the CLIA regul ation s and is used for clini cyn purpo ses. Perfo rming Organ izati on Infor matmaria isabel n: Site ID: EZ Name: [facility] [employer] [facility]/Abdelrahman martin [facility] [place] , Addre ss: [id number] [address] [facility] [place] [address] Direc tor: Niesha segundo MD,Ph D,GENEVIEVE Not Available [facility] (Lab) [address], [place], [address], 10/17/2022 17:22:39 10/14/19 23 10/13/2022 CT/GC AND TRICH OMONA S VAGIN MONTSE (RRNA ), URINE chlamydia trachomatis, PCR Negati ve negati ve Not Available [facility] (Lab) [address], [place], [address], 10/17/2022 17:32:43 10/14/19 23 10/13/2022 CT/GC AND TRICH OMONA S VAGIN MONTSE (RRNA ), URINE neisseria gonorrhoeae, PCR Negati ve negati ve Not Available [facility] (Lab) [address], [place], [address], 10/17/2022 17:32:43 10/14/19 23 10/13/2022 CT/GC AND TRICH OMONA S VAGIN MONTSE (RRNA ), URINE trichomonas vaginalis ribosomal RNA (rrna) Negati ve negati ve Not Available [facility] (Lab) [address], [place], [address], 10/17/2022 17:32:43 10/14/19 23 10/13/2022 CULTU RE: AEROB IC/AN AEROB IC result report SEE RESULT S BELOW abnormal Test: Cultu re: Aerob ic/An aerob ic Speci men Sourc e: Other Speci men Type: Micro biolo gy Speci men Speci men Date: 2022 4:22 PM Resul t Date: 2022 12:31 PM Resul t Statu s: Final resul t Abnor mal: Yes Resul jeffry Lab: [facility] [address] [facility] [address] Tel: CULTU RE ----- ----- ----- --- Moder ate Growt h Methi cilli n-Res istan t Staph yloco ccus aureu s [facility] Cultu re sampl es colle cted from [...] rins and carba penem s. Not Available [facility] (Lab) [address], [place], [address], 10/17/2022 17:32:44 10/14/19 23 10/13/2022 CULTU RE: HERPE S SIMPL EX VIRUS (HSV) , REFLE X TYPIN G source SWAB Not Available [facility] (Lab) [address], [place], [address], 10/17/2022 17:32:44 10/14/19 23 10/13/2022 CULTU RE: HERPE S SIMPL EX VIRUS (HSV) , REFLE X TYPIN G hsv culture, body fluid NOT ISOLAT ED REFER ENCE RANGE : NOT ISOLA JOÃO labia major a Perfo rming Organ izati on Infor matio n: Site ID: EZ Name: [facility]/Abdelrahman hols [facility] [place] , Addre ss: [id number] [facility] [place] [address] Direc tor: Niesha segundo MD,Ph D,GENEVIEVE Not Available [facility] (Lab) [address] [place], [address], 10/17/2022 17:32:44 Result Notes None recorded. Problems Name Problem SNOMED Code Status Onset Date Resolution Date Notes Provider Name and Address Organization Details Recorded Time Screening for malignant neoplasm of rectum Active 2017 Encounter for screening for malignant neoplasm of rectum;Pr actice ID: [id number] Not Available [facility] 0 15:55:[address] Concept Active 2017 Encntr for timber killer exam (general) (routine) w/o abn findings; Practice ID: 0001 Not Available [facility] 0 15:55:33 Evaluatio n finding Active 2017 Hematuria , unspecifi ed;Practi ce ID: 0001 Not Available [facility] 0 15:55:33 Microscop ic hematuria 077418128 Active 2015 Other microscop ic hematuria ;Practice ID: 0001 Not Available [facility] 0 15:55:33 Specializ ed medical examinati on Active 2011 Routine gynecolog ical examinati on;Practi ce ID: 0001 Not Available [facility] 0 15:55:[address] Concept Active 2015 Encntr for general adult medical exam w/o abnormal findings; Recorded Elsewhere : No Locati on: [facility] So urce: EHR Chron ic: N Practic e ID: 0001 Bill able Time: 01:00:00 PM Not Available [facility] 0 15:55:[address] Concept Active 2015 Well woman check w/ abnormal finding;R ecorded Elsewhere : No Locati on: [facility] So urce: EHR Chron ic: N Practic e ID: 0001 Bill able Time: 01:00:00 PM Not Available [facility] 0 15:55:33 Asymptoma tic microscop ic hematuria [id number] 749399 Active 2017 Asymptoma tic microscop ic hematuria ;Recorded Elsewhere : No Locati on: [facility] So urce: EHR Chron ic: N Practic e ID: 0001 Bill able Time: 03:15:00 PM Not Available [facility] 0 15:55:33 Reduced libido 9432488 Active 2017 Decreased libido;Re corded Elsewhere : No Locati on: [facility] So urce: EHR Chron ic: N Practic e ID: 0001 Bill able Time: 03:15:00 PM Not Available [facility] 0 15:55:33 Finding of general energy 155972037 Active 2015 Fatigue;R ecorded Elsewhere : No Locati on: [facility] So urce: EHR Chron ic: N Practic e ID: 0001 Bill able Time: 01:00:00 PM Not Available [facility] 0 15:55:34 Problem Notes None recorded. Procedures Surgical History Date Name Laterality Status Provider Name and Address Organization Details Recorded Time hysterectomy completed [facility] 10/13/2022 15:36:[address] [facility] 10/13/2022 15:36:25 tonsillectomy completed MONIKA Morris [address], [place], [address], [facility] 07/20/2024 13:00:35 Knee arthroscopy/surgery completed MONIKA Morris [address], [place], [address], [facility] 07/20/2024 13:01:10 excision of cervical intervertebral disc completed MONIKA Morris [address], [place], [address], [facility] 07/20/2024 13:01:35 Elbow arthroscopy completed MONIKA Zuniga [address], [place], [address], [facility] 07/20/2024 13:01:43 Imaging Results None recorded. Procedure Notes None recorded. Medical Equipment None Reported. Allergies Allergen ID Allergen Name Allergen Category Reaction Reaction Severity Criticality Documentation Date Start Date Code Code System Note Provider Name and Address Organization Details Recorded Time 37033 clarithro mycin medicatio n Not available Not available Not available 07/19/2020 RxNorm React ion: rash , sore joint s; Comme nt: [facility] sat[facility] e Agent : Biaxi n; Not Available [facility] 0 14:17:58 Biaxin medicatio n Not available Not available Not available 10/13/202287184 9 RxNorm Hattie [address] kramer, [facility] 3 15:15:30 gabapenti n medicatio n Not available Not available Not available 10/13/2022 01435 RxNorm Hattie Lopezvioleta r williams, [facility] 3 15:15:39 Medications Name Sig Start Date Stop Date Status Note LastModified by Organization Details LastModified Time amlodipin e 2.5 mg tablet take 1 tablet by oral route every day active Prescrib ed Elsewher e: Yes Loca tion: [facility]ago[facility] odify By: césar coon DateTime : 07/05/20 18 03:15:00 PM Not Available Not Available Not Available amoxicill in 500 mg tablet take 1 tablet by oral route 3 times every day for 3 weeks 07/05 completed Prescrib ed Elsewher e: No Locat ion: [facility]izz zarago[facility] odify By: césar coon DateTime : 10/10/19 16 08:57:53 AM Not Available Not Available Not Available potassium 99 mg tablet 09/30 completed Prescrib ed Elsewher e: Yes Loca tion: [facility]ago[facility] odify By: césar coon DateTime : 07/05/20 18 03:15:00 PM Not Available Not Available Not Available levothyro xine 500 mcg intraveno us powder for solution inject by intraven ous route every day 10/13 completed Prescrib ed Elsewher e: Yes Loca tion: Lizz zarago[facility] odify By: johnathan caryer DateTime : 10/01/19 16 01:00:00 PM Not Available Not Available Not Available trazodone 100 mg tablet take 1 tablet by oral route 2 times every day after meals 10/13 completed Prescrib ed Elsewher e: Yes Loca tion: Jailynwhitney mila [facility] odify By: [email or web address] trick En counter DateTime [...] Elsewher e: No Locat ion: Lizz zaragoza [facility] odify By: alma Odonnell er DateTime : 07/14/20 18 12:22:21 PM Not Available Not Available Not Available Pamelor 10 mg capsule take 1 capsule by oral route every day at bedtime 10/13 completed Prescrib ed Elsewher e: Yes Loca tion: [facility] zarago[facility] odify By: césar z Encoun ter DateTime [...] Elsewher e: Yes Loca tion: [facility] zarago[facility] odify By: [email or web address] trick En counter DateTime : 06/13/20 12 05:30:00 PM Not Available Not Available Not Available folic acid 1 mg tablet take 1 tablet by oral route every day 10/13 completed Prescrib ed Elsewher e: Yes [facility] By: césar z Encoun ter DateTime : 07/05/20 18 03:15:00 PM Not Available Not Available Not Available Levatol 20 mg tablet take 1 tablet by oral route every day 09/30 completed Prescrib ed Elsewher e: Yes Loca tion: Lizz zarago[facility] odify By: johnathan coreasunter DateTime : 06/13/20 12 05:30:00 PM Not Available Not Available Not Available Zoloft 100 mg tablet Take 1 tablet every day by oral route. active Not Available Not Available No t Available lisinopri l 2.5 mg tablet take 1 tablet by oral route every day 10/13 completed Prescrib ed Elsewher e: Yes Loca tion: [facility]izz zarago[facility] odify By: johnathan Zaragoza ncounter DateTime : 10/01/19 16 01:00:00 PM Not Available Not Available Not Available Nifedical XL 60 mg tablet,ex tended release take 1 tablet by oral route every day 09/30 completed Prescrib ed Elsewher e: Yes Loca tion: Lizz zaragoza [facility] odify By: johnathan Zaragoza ncounter DateTime : 06/13/20 12 05:30:00 PM Not Available Not Available Not Available Phenergan 25 mg/mL injection solution inject 1 millilit er by intramus cular route once, may repeat in 2 hours 10/13 completed Prescrib ed Elsewher e: Yes Loca tion: Lizz zaragoza [facility] odify By: césar szymanski Encoun ter DateTime [...] Elsewher e: Yes Loca tion: Lizz zarago[facility] odify By: césar z Encoun ter DateTime : 07/05/20 18 03:15:00 PM Not Available Not Available Not Available Flonase Allergy Relief 50 mcg/actua tion nasal spray,jere pension spray 1 - 2 spray by intranas al route every day in each nostril as needed active Prescrib ed Elsewher e: Yes Loca tion: Lizz zaragoza [facility] odify By: alejandrochult z Encoun ter DateTime [...] Updated DateTime 10/13/2022 165.1 cm 31.3 kg/m2 15627.37 g 130 mm[Hg] 87 mm[Hg] Hattie Wolf [facility] 3 16:00:11 Date Recorded Body height Body mass index (BMI) Body weight Systolic blood pressure Diastolic blood pressure Provider Name and Address Organization Details Last Updated DateTime 07/20/2024 165.1 cm 40 kg/m2 646501.6 1 g 128 mm[Hg] 84 mm[Hg] Pura Fisher [facility] 4 14:17:53 Social History Question Answer Notes LastModified by Organizat ion Details LastModified Time Tobacco Smoking Status Former Smoker Pura Fisher [facility] 07/20/2024 14:21:14 What Is Your Level [...] (Food, seasonal, environmental ) N Other Y Drug/Latex Allergies/Reactions N Blood Transfusion N Breast Cancer N Dermatologic Disorders Y Lung Disease Y Defects or Inherited Disease N Breast Problem N Gestational Diabetes N Hematologic disorders N Anesthesia Complications N History of STI N Deep Vein Thrombosis N Polycystic ovary syndrome N Anxiety Disorder N Autoimmune disease N Arthritis N Polyps N Infertility N Acid Reflux (GERD) Y History of abnormal pap N Cancer N Varicosities N Stroke N Neurologic/Epilepsy N Endometriosis N High Cholesterol N Fibromyalgia N Headaches Y Kidney Disease N Heart Problems N Thyroid Problems Y Kidney or Bladder Problems N GI Problems Y Eating Disorder N Anemia [...] SNOMED-CT Code Diagnosis ICD10 Code Diagnosis Note [id number] MONIKA Morris [place] [address] [address] 10/13/2022 14:55:35 10/13/2022 16:13:58 Lesion of vulva 870568530 N90.89 HSV appearing lesionHSV PCR sentCultur e [...] plan of care. Venereal d isease screening 553668406 Z11.3 Sexually t ransmitted infectious disease 7144916 A64 [id number] MONIKA Morris [place] [address] [address] 07/20/2024 14:02:08 07/20/2024 14:59:04 Vulval irritation 489854469 N90.89 Candidiasis of skin 4988 3006 B37.2 [...] History of methicillin resistant Staphylococcus aureus infection 545942345 Z86.14 Health Concerns Section Related Observation LastModified by Organization Detai ls LastModified Time None Recorded Concern Status LastModified by Organization Details LastModified Time None Recorded Advance Directives Directive None Recorded Payers Encounter Date Sequence Insurance Name Policy Number Policy Jackson Covered Member ID Jackson Member ID Guarantor Name 10/13/2022 1 [facility] ON OR AFTER 01/30/21 (MEDICAID REPLACEMENT - HMO) Sunita L [place] [id number] Sunita L [place] 07/20/2024 1 [facility] ON OR AFTER 01/30/21 (MEDICAID REPLACEMENT - HMO) Sunita L [place] [id number] Sunita L [place] Notes Date Note Type Note Provider Name [...] of hyst MONIKA Morris [address], [place], [address], [facility] 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 Has been using nystatin powder from her PCP.was in the hospital for COPD exacerbation last monthh/o MRSA on face in 2021 and vulvar lesion in 2022has appointment with dermatology coming up MONIKA Morris [address], [place], [address], [facility] 07/20/2024 14:58:48 OBGyn Episode Ob Episode Information Episode Created Date Number of Fetuses Patient Bloodtype Patient rh Status Prepregnancy Weight lbs Domestic Partner Domestic Partner Phone Father Name Distribution Field Engineer Status 10/14/19 23 1 CLOSED Fetus Data First Name Last Name Admitted to NICU Weight (g) Sex Living Outcome Pediatric Complications Fetus ID Race Codes Race Delivery Type [phone] M [id number] Vaginal Delivery Larry Calculation Initial Larry Date [...] Domestic Partner Domestic Partner Phone Father Name Distribution Field Engineer Status 10/14/19 23 1 CLOSED Fetus Data First Name Last Name Admitted to NICU Weight (g) Sex Living Outcome Pediatric Complications Fetus ID Race Codes Race Delivery Type 3656.85 8704 F [id number] Vaginal Delivery Larry Calculation Initial Larry Date [...] Domestic Partner Domestic Partner Phone Father Name Distribution Field Engineer Status 10/14/19 23 1 CLOSED Fetus Data First Name Last Name Admitted to NICU Weight (g) Sex Living Outcome Pediatric Complications Fetus ID Race Codes Race Delivery Type 3572.03 7 F [id number] Vaginal Delivery Larry Calculation Initial Larry Date [...]
--- OUTSIDE RECORDS SUMMARY | 2024-12-07 15:34 | XMS_ITS | Encounter Summary ---
Author Organization [facility] Address [address] [place] [address] Phone Care Team Providers Care Cash Management Clerk Name Role Phone Lianne Stack MD Primary Care Provider [phone] Ryan Figueroa MD Unavailable Gene Russell MD Unavailable [phone] Encounter Details Date Type Department Care Team (Latest Contact Info) Description 10/24/2024 Results Follow-Up [facility] - Gastroenterology - [address] [place] [address] Cecilia Mai, RN [place] Pathology Surgical Social History Tobacco Use Types Packs/Day Years Used Date Smoking Tobacco: Former Cigarettes 1 25.3 S tarted: 2000 Alcohol Use Standard Drinks/Week Comments No 0 (1 standard drink = 0.6 oz pur e alcohol) [facility] Utilities Answer Date Recorded In the past 12 months has th [employer] electric, gas, oil, or water company threatened [...] declined 10/23/2024 How often do you attend jain or mormon serv ices? Never 10/23/2024 Do you belong to any clubs o r organizations such as jain groups, unions, fraternal or athletic groups, or [...] and heating? Not hard at all 10/23/2024 [facility] - Occupational Stress Questionnaire Answer Date [...] place to sleep or slept in a usp (including now)? Patient declined 12/15/2023 Housing Stability [...] any time in the past 12 m [facility], were you homeless or living in a usp (including now)? No 10/23/2024 Sexually Active Control [...] Medical Group - Pulmonology & Sleep Medicine [facility] [address] [place] [address] Ryan Figueroa MD [address] [place] [address] documented as of this encounter Visit Diagnoses Not on filedocumented in this encounter Care Teams Cash Management Clerk Relationship Specialty Start Date End Date Lianne Stack MD [address] [place] [address] PCP - General Family Medicine 01/13/23 Ryan Figueroa MD [address] [place] [phone] Consulting Physician Pulmonary Disease 01/29/23 Gene Russell MD [address] [place] [address] Consulting Physician Neurology 01/28/24 documented as of this encounter
--- OUTSIDE RECORDS SUMMARY | 2024-12-07 15:34 | XMS_ITS | Encounter Summary ---
Author Organization [facility] Address [address] [place] [address] Phone Care Team Providers Care Forest Examiner Name Role Phone Lianne Stack MD Primary Care Provider Ryan Figueroa MD Unavailable Gene Russell MD Unavailable Encounter Details Date Type Department Care Team (Late st Contact Info) Description 11/17/2023 Transcribe Orders [facility] [address] [place] [address] Lianne Stack MD [address] [place] [address] Orthopnea (Primary Dx) Social History [...] Description 12/14/2024 11:30 AM CDT Office Visit [facility] - Pulmonology & Sleep Medicine [facility] [address] [place] [address] Ryan Figueroa MD [address] [place] [id number] documented as of this encounter Results * (ABNORMAL) CMP (COMPREHENSIVE METABOLIC PANEL) (11/17/2023 3:32 PM CDT) Pathologist [facility] SODIUM 138 136 - 145 mmol/L 11/17/2023 5:37 PM CDT [facility] POTASSIUM 4.0 3.5 - 5.1 mmol/L 11/17/2023 5:37 PM CDT [facility] CHLORIDE 103 98 - 107 mmol/L 11/17/2023 5:37 PM CDT [facility] CO2, VENOUS 26 22 - 30 mmol/L 11/17/2023 5:37 PM CDT [facility] ANION GAP 13.0 <18.0 mmol/L 11/17/2023 5:37 PM CDT [facility] GLUCOSE 81 70 - 99 mg/dL 11/17/2023 5:37 PM CDT [facility] BUN 15 10 - 20 mg/dL 11/17/2023 5:37 PM CDT [facility] CREATININE, BLOOD 1.24(H) 0.60 - 1.00 mg/dL 11/17/2023 5:37 PM CDT [facility] BUN/CREATININE RATIO 12 12 - 20 ratio 11/17/2023 5:37 PM CDT [facility] TOTAL PROTEIN 7.1 6.3 - 8.2 g/dL 11/17/2023 5:37 PM CDT [facility] ALBUMIN 3.9 3.5 - 5.0 g/dL 11/17/2023 5:37 PM CDT [facility] A/G RATIO 1.2 1.0 - 2.2 11/17/2023 5:37 PM CDT [facility] CALCIUM 9.9 8.7 - 10.5 mg/dL 11/17/2023 5:37 PM CDT [facility] T BILI 0.3 0.2 - 1.2 mg/dL 11/17/2023 5:37 PM CDT [facility] SGOT (AST) 18 5 - 34 U/L 11/17/2023 5:37 PM CDT [facility] SGPT (ALT) 20 0 - 55 U/L 11/17/2023 5:37 PM CDT [facility] ALKALINE PHOSPHATASE 189(H) 40 - 150 U/L 11/17/2023 5:37 PM CDT [facility] IS THE PATIENT REQUIRED TO BE FASTING? No 11/17/2023 5:37 PM CDT [facility] GFR, ESTIMATED 49(L) >=60 11/17/2023 5:37 PM CDT [facility] Comment: Creatinine Clearance is the preferred criteria for selecting drug dose adjustments in renally impaired patients. The GFR is provided as additional pertinent clinical information. GFR is reported in mL/min/1.73 sq m. Calculation based on the Chronic Kidney Disease Epidemiology Collaboration (CKD- EPI) equation refit without adjustment for race. GFR, EST. 53(L) >=60 024 5:37 PM CDT [facility] GFR, EST. NONAFRICAN 44(L) >=60 11/17/2023 5:37 PM CDT [facility] Blood Venipuncture / Unknown 11/17/2023 3:32 PM CDT 11/17/2023 5:02 PM CDT us Lianne Stack MD CHEMISTRY ORDERABLES Final Re sult [facility] [address] [place] [address] * B-TYPE NATRIURETIC PEPTIDE (BNP) (11/17/2023 3:32 PM CDT) B TYPE NATRIURETIC PEPTIDE 16 <100 pg/mL 11/17/2023 6:30 PM CDT [facility] Blood Venipuncture / Unknown 11/17/2023 3:32 PM CDT 11/17/2023 5:02 PM CDT Lianne Stack MD CHEMISTRY ORDERABLES Final Re sult [facility] [address] [place] [address] documented in this encounter Visit Diagnoses Diagnosis Orthopnea- Primary documented in this encounter Additional Health Concerns Infection Onset Date Last Indicated Resolved Time COVID - 19 02/25/2024 02/25/2024 02/25/2024 4:10 AM CDT 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 02/25/2024 06/06/2024 9:53 AM GRAIN SAMPLER COVID - 19 06/03/2024 06/03/2024 06/03/2024 12:0 0 PM CDT COVID - 19 10/08/2024 10/08/2024 10/08/2024 9:00 PM CDT COVID - 19 10/23/2024 10/23/2024 10/23/2024 1:09 AM CDT documented as of this encounter Care Teams Forest Examiner Relationship Specialty Start Date End Date Lianne Stack MD [address] [place] [address] PCP - General Family Medicine 01/13/23 Ryan Figueroa MD [address] [place] [address] Consulting Physician Pulmonary Disease 01/29/23 Gene Russell MD [address] [place] [address] Consulting Physician Neurology 01/28/24 documented as of this encounter
--- OUTSIDE RECORDS SUMMARY | 2024-12-07 15:34 | XMS_ITS ---
Author Organization [facility] Address [address] [place] [address] Care Team Providers Care Tool Profiling Machine Set Up Operator Name Role Phone Olman Vicky Primary Care Provider Patrizia Hui Unavailable [phone] REASON FOR VISIT BH Clinician Referral Social History Sex Assigned At : Social History Observation Description Sex Assigned At Female Encounters Encounter Location Date Provider Diagnosis [address] [place] [address] 12/05/2024 Patrizia Hui Assessments Encounter Date Diagnosis (ICD Code) Assessment Notes Treatment Notes Treatment Clinical Notes Section Notes 12/05/2024 Other Clinician met with client to assess needs and preferences for services. Clinician explored therapy goals, history of engagement, psychiatric history and diagnosis. Clinician provided education on same day call in therapy, traditional therapy and oil recovery unit operator services. Referrals for preferred methods will be sent following appointment. Plan Of Treatment Treatment Notes Assessment Notes Other Clinician met with travon victor to assess needs and preferences for services. Clinician explored therapy goals, history of engagement, psychiatric history and diagnosis. Clinician provided education on same day call in therapy, traditional therapy and oil recovery unit operator services. Referrals for preferred methods will be sent following appointment. Progress Notes * David DANIELSOB:1960 (64 yo F)Acc No.[id number]:12/05/2024 UNLOCKED PROGRESS NOTE Patient: Sunita BARRAGAN Provider: Angela Hui LCSW :1960 A ge:64 Y S ex:Female Date:12/05/2024 Address:[address], [facility] Pcp:Vicky Thurman Subjective: * Chief Complaints: * 1 . Clinician Referral. * HPI: a TBC For Mental Health Services: Who Is Your Primary Care Provider? D o You Have A PCP? Y es Do You Have A Psychiatric Provider? D o You Have A Psychiatric Provider? Y es Do You Have Any Other Professional Supports? D o You Have Any Other Professional Supports??Yes Consent Forms Completed During Appointment C onsent Forms Completed C onsent To Treat, Health Care Providers, Emergency Contact, Probation/[place] A ssessment of Social Determinants of Health::: Has A PRAPARE Been Completed In The Past Year? H as a PRAPARE Been Completed In The Past Year? Y es W as It Completed Today Using SmartCoupoplaces? N o P sychiatric Assessment - Current Symptoms: Primary concern today x . Overview of Mental Health Symptoms x . History of Psychiatric Hospitalizations x . History of Psychiatric and Behavioral Health Treatment x .? S ubstance Use: Current Use Patterns x . Substance of Choice x . History of substance use x . Hx of Withdrawal x . * Medical History: Objective: * Vitals: * Examination: M ental Status Exam: ATTENTION AND CONCENTRATION x . APPEARANCE x . ATTITUDE AND BEHAVIOR x . EYE CONTACT x . AFFECT x . MOOD x . INSIGHT x . JUDGMENT x . Assessment: Plan: * Treatment: * Procedure Codes: 9 0791 PSYCH DIAGNOSTIC EVALUATION, Modifiers: AJ , T1016 Case management, CHS08 aT Service, CHS11 Insurance Application Assistance, CHS12 Housing Assistance, CHS13 Referring to Animal Killer * * Electronic signature of April Hui LCSW, [id number] on 12/07/2024 at 03:34 PM CDT Sign off status: Pending * Provider: Angela Hui LCSW Date: 0 12/05/2024 Generated for Elder dejesus/lCarissa/Kemi on: 0 12/07/2024 03:34 PM CDT History and Physical Notes * HPI (History of Present Illness) Category Sub-Category Detail Notes Category Not es Psychiatric Assessment - Cur rent Symptoms Primary concern today x Overview of Mental Health Symptoms x History of Psychiatric Hospitalizations x History of Psychiatric and Behavioral He alth Treatment x Substance Use History of substance use x Hx of Withdrawal x Substance of Choice x Current Use Patterns x Assessment of Social Determinants of Health:: Has A PRAPARE Been Completed In The Past Year? Has a PRAPARE Been Completed In The Past Year?: Yes Was It Completed Today Using SmartForm?: No aT For Mental Health Services Who Is Your Primary Care Provider? Do You Have A PCP?: Yes Do You Have A Psychiatric Provider? Do You Have A Psychiatric Provider?: Yes Do You Have Any Other Profes sional Supports? Do You Have Any Other Professional Supports?: Yes Consent Forms Completed During Appointme nt Consent Forms Completed: Consent To Treat, Health Care Providers, Emergency Contact, Probation/[place] Examination Category Sub-Category Detail Notes Category Not es Mental Status Exam ATTENTION AND CONCENTRATION x APPEARANCE x ATTITUDE AND BEHAVIOR x EYE CONTACT x AFFECT x MOOD x INSIGHT x JUDGMENT x
--- OUTSIDE RECORDS SUMMARY | 2024-12-07 15:34 | XMS_ITS | Referral Summary ---
Author Organization [facility] Address [address] [place] [address] Care Team Providers Care Java Core Developer Name Role Phone Lianne Stack MD Primary Care Provider [phone] Allergies Active Allergy Reactions Criticality Noted Date [...] 1 tablet (137 mcg total) by mouth single stroke preformer before breakfast 30 tablet 4 Active albuterol [...] dorsum. Will call with culture results - [place] [facility] reviewed - Referral to Rheumatology [...] Overview (03/29/2024): Decreased libido;Recorded Elsewhere: No Location: [facility] Source: EHR Chronic: N Practice ID: [id number] Billable Time: 03:15:00 PM Intractable migraine without aura and without status migrainosus 06/20/2018 COPD (chronic obstructive pulmonary disease) (CM S/HCC) 02/10/2018 Overview (09/03/2022): COPD Allergic rhinitis 02/10/2018 Chronic constipation 02/10/2018 Chronic daily headache 02/10/2018 Depression 02/10/2018 History of Helicobacter pylori infection 018 History of pancreatitis 02/10/2018 JULIAN (obstructive sleep apnea) 02/10/2018 Overview (09/03/2022): Overview: ([facility] - repeated - at time patient on [...] drink = 0.6 oz pur e alcohol) [facility] Utilities Answer Date Recorded In the past 12 months has empl[employer], gas, oil, or water [employer] threatened to shut off services in your home? No 03/29/2024 Social Connection and Isolat ion Panel [NHANES] Answer Date Recorded In a typical week, how many times do you talk on the phone with family, friends, or neighbors? Never 03/29/2024 How often do you get togethe r with friends or relatives? More than three times a week 03/29/2024 How often do you attend [facility] or pentecostalism services? Never 03/29/2024 Do you belong to [...] any time in the past 12 m [facility], were you homeless or living in a fpc (including now)? No 03/29/2024 Personal Safety Answer Date Recorded Have you ever been in or are you currently in a harmful physical or emotional relationship or is someone making you feel afraid or unsafe? Denies 03/29/2024 Comments No Sex and Gender Information Value Date Recorded Sex Assigned at Not on file Legal Sex Female 12:37 PM SHIP/REC/DOC CONTROL Gender Identity Not on file Sexual Orientation [...] Associated Diagnosis Comments COLONOSCOPY 06/19/2010 12:00 AM SHIP/REC/DOC CONTROL from Last 3 Months or Most Recently Relevant to Health Maintenance Results * COLONOSCOPY (06/19/2010 12:00 AM SHIP/REC/DOC CONTROL) Anatomical Region Laterality Modality Other Narrative 06/19/2010 12:00 AM SHIP/REC/DOC CONTROL Ordered by an unspecified provider. Procedure Note Provider, MD Floyd - 06/19/2010 12:00 AM CST PROCEDURE REPORT Patient: MARKEL DANIELS Account: [id number] Room No: : 1960 Patient Type: [facility] Attend.: Reece Ashton M.D. Admit Date: 06/19/2010 Dict.: Reece Ashton M.D. Disch. Date: PROCEDURE PERFORMED: Colonoscopy. HISTORY: 49-year-old female with a prior history of colonic polypspresently having alternating constipation and diarrhea. PHYSICAL EXAMINATION: Obese female. Lungs are clear. Cardiovascular examination was unremarkable. PROCEDURE: Colonoscopy was performed with the [employer] video endoscope.The patient was premedicated by anesthesia. [...] TD: 06/20/2010 11:07 CC: Dr. Glenroy Power [place], [place] PROCEDURE REPORT Authenticated by Reece Ashton MD On 06/23/2010 07:33:00 AM us Historical Provider ENDOSCOPY PROCEDURES Shelby l Result from Last 3 Months or Most Recently Relevant to Health Maintenance Insurance [address] [place], [place] [id number] [place] [address] [address] [place] [address] [facility] Advance Directives For more information, please contact: [phone] * Full Code (Latest Code Status on File) Date Activated Date Inactivated Comments 03/29/2024 4:20 AM 04/05/2024 6:34 PM * Full Code Date Activated Date Inactivated Comments 09/20/2020 3:43 AM 09/22/2020 5:29 PM Care Teams Java Core Developer Relationship Specialty Start Date End Date Lianne Stack MD [address] [place] [address] PCP - General Obstetrics and Gynecology 11/25/23
--- OUTSIDE RECORDS SUMMARY | 2024-12-07 15:34 | XMS_ITS | Data Portability ---
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 Plan of Treatment Reminders Order Date Submit Date Provider Last Modified By Organization Details Last Modified Time Details Appointments None recorded. Lab drug screen, 14 drugs (detectim ed), urine - see med list; uses oxycodone 2024 025 [facility], [address] [facility], [facility], [place], [address], 5 03:40:36 BMP, serum or plasma 2023 024 [facility], [address] [facility], [facility], [place], [address], 4 03:36:48 TSH, ultra-sen sitive, serum 2023 024 [facility], [address] [facility], [address], [place], [address], 4 14:36:16 Referral pain managemen t referral - Chronic back pain; patient open to back injection s after having tried multiple pain medicatio ns 2024 025 [facility], [address], [place], [address], 5 10:35:[address] referral - blurry vision and pain with eye movement, subconjun ctival hemorrhag e of left eye 2023 [facility], [address], [place], [address], 5 08:53:55 [facility] - patient with COPD on supplemen godwin O2; gets fatigued easily 2023 024 [facility], [address] [place], [place], [address], 5 14:21:42 Procedures None recorded. Surgeries None recorded. Imaging None recorded. Medication Orders oxycodone 5 mg tablet 2024 025 [facility] #[id number], [address], [place], [place], [id number], 5 15:30:42 oxycodone 5 mg tablet 2024 025 [id number], [address], [place], [place], [id number], 5 15:30:43 oxycodone 5 mg tablet 2024 025 [facility][id number], [address], [place], [place], [id number], 5 15:30:40 cyclobenz aprine 10 mg tablet 2024 025 [facility] #[id number], [address], [place], [place], [id number], 5 15:13:49 oxycodone 5 mg tablet 2024 025 [facility][id number], [address], [place], [place], [id number], 5 15:13:55 ketoconaz ole 2 % topical cream 2023 [facility], [address], [place], [place], [id number], 4 16:29:33 Lidocaine Viscous 2 % mucosal solution 2023 025 [facility] #60096, [address], [place], [place], [id number], 5 15:04:56 cyclobenz aprine 10 mg tablet 2023 [facility] #35328, [address], [place], [place], [id number], 4 14:10:12 meloxicam 15 mg tablet 2023 025 [id number], [address], [place], [place], [id number], 5 14:38:55 oxycodone 5 mg tablet 2023 [facility] #[id number], [address], [place], [place], [id number], 4 14:10:23 Patient TargetsNo targets recorded. Patient InstructionsNo instructions recorded. Reason for Referral Cardiopulmonary Rehab Referr al for Chronic obstructive pulmonary disease patient with COPD on supplemental O2; gets fatigued easily Referring Physician: Lianne Stack 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 Medicine, Encounter Date: 07/21/2024 Pain Management Referral for Chronic low back pain Chronic back pain; patient open to back injections after having tried multiple pain medications Referring Physician: Lianne Stack, Family Medicine, Encounter Date: 11/02/2024 Results Created Date Observation Date Name Description Value Unit Range Abnormal Flag Note LastModifiedBy Organization Detail LastModifiedTime 05/15/20 24 05/15/2024 influ bryanna virus A + B + SARS- CoV-2 (COVI D19) Ag panel , rapid IA, upper respi rator y speci men Flu A negati ve Not Available In-Office Order Internal Use Only DO Not Attach Compendium DO Not Attach Compendium, Do Not Delete/merge, [id number] 05/15/2024 15:50:55 05/15/2005/15/2024 influ bryanna virus A + B + SARS- CoV-2 (COVI D19) Ag panel , rapid IA, upper respi rator y speci men Flu B negati ve Not Available In-Office Order Internal Use Only DO Not Attach Compendium DO Not Attach Compendium, Do Not Delete/merge, [id number] 05/15/2024 15:50:55 05/15/20 24 05/15/2024 influ bryanna virus A + B + SARS- CoV-2 (COVI D19) Ag panel , rapid IA, upper respi rator y speci men Rapid SARS CoV 2 Ag, QL IA, respiratory specimen negati ve Not Available In-Office Order Internal Use Only DO Not Attach Compendium DO Not Attach Compendium, Do Not Delete/merge, [id number] 05/15/2024 15:50:55 05/31/2005/31/2024 BASIC METAB OLIC PANEL (8) glucose 95 mg/dL 70-99 Not Available [facility] [address] [place], [address], 06/01/2024 03:36:48 05/31/20 24 05/31/2024 BASIC METAB OLIC PANEL (8) BUN 20 mg/dL 8-27 Not Available [facility] [address] [place], [address], 06/01/2024 03:36:48 05/31/2005/31/2024 BASIC METAB OLIC PANEL (8) creatinine 1.06 mg/dL 0.76-1 .27 Not Available [facility] [address] [place], [address], 06/01/2024 03:36:48 05/31/20 24 05/31/2024 BASIC METAB [...] disre kandice that value . Not Available [facility] [address] [place] [address], [address], 06/01/2024 03:36:48 05/31/2005/31/2024 BASIC METAB OLIC PANEL (8) BUN/creatini ne ratio 19 10-28 Not Available [facility] Department [address] [place], [address], 06/01/2024 03:36:48 05/31/2005/31/2024 BASIC METAB OLIC PANEL (8) sodium 140 mmol/ L 134-14 4 Not Available [facility] [address] [place], [address], 06/01/2024 03:36:48 05/31/2005/31/2024 BASIC METAB OLIC PANEL (8) potassium 4.7 mmol/ L 3.5-5. 2 Not Available [facility] [address] [place], [address], 06/01/2024 03:36:48 05/31/20 24 05/31/2024 BASIC METAB OLIC PANEL (8) chloride 103 mmol/ L 96-106 Not Available [facility] [address] [place], [address], 06/01/2024 03:36:48 05/31/20 24 05/31/2024 BASIC METAB OLIC PANEL (8) carbon dioxide, total 25 mmol/ L 20-29 Not Available [facility] [address] [place], [address], 06/01/2024 03:36:48 05/31/20 24 05/31/2024 BASIC METAB OLIC PANEL (8) calcium 9.2 mg/dL 8.7-10 .3 Not Available [facility] [address] [place], [address], 06/01/2024 03:36:48 05/31/2006/01/2024 TSH RFX ON ABNOR MAL TO FREE T4 TSH 1.560 uIU/m L 0.450- 4.500 Not Available [facility] ([facility]) [address] [facility], [place], [address], 06/01/2024 14:36:15 06/03/20 24 06/03/2024 Methi cilli [...] Inval id 06/03 4:18 PM CDT [facility] Not Available Not Available 09/22/2024 21:59:29 [...] 4lpm/ nc 06/03 11:25 AM CDT [facility] Not Available Not Available 09/22/2024 21:59:29 06/03/20 24 06/03/2024 Gas panel - Arter ial blood pH of arterial blood 7.31 low: 7.35hi gh: 7.45 low PH ARTER IAL 7.31 (L) 7.35 - 7.45 06/03 11:25 AM CDT [facility] Not [...] 2.0 mmol/ L 06/03 11:25 AM CDT [facility] Not Available Not Available 09/22/2024 21:59:29 06/03/20 24 06/03/2024 Gas panel - Arter ial blood bicarbonate [moles/volum e] in blood 34.4 mmol/ L low: 22mmol /Lhigh : 26mmol /L high BICAR BONAT E 34.4 (H) 22.0 - 26.0 mmol/ L 06/03 11:25 AM [facility] Not Available Not Available 09/22/2024 21:59:29 06/03/20 24 06/03/2024 Gas panel - Arter ial blood arterial patency wrist artery --pre arterial puncture Positi ve - Right Radial LULU 'S TEST RESUL TS Posit tommy - Right Radia l 06/03 11:25 AM [facility] Not Available Not Available 09/22/2024 21:59:29 06/03/20 24 06/03/2024 Gas panel - Arter ial blood carboxyhemog lobin/hemogl obin.total in blood 1 % low: 0%high : 5% CARBO XYHEM OGLOB IN 1.0 0.0 - 5.0 % 06/03 11:25 AM CDT [facility] Not Available Not Available 09/22/2024 21:59:29 06/03/20 24 06/03/2024 Gas panel - Arter ial blood methemoglobi n/hemoglobin .total in blood 0.4 % low: 0%high : 1.5% METHE MOGLO BIN 0.4 0.0 - 1.5 % 06/03 11:25 AM CDT [facility] Not Available [...] 2.0 mmol/ L 06/03 11:35 AM CDT [facility] Not Available Not Available 09/22/2024 [...] <100 pg/mL 06/03 11:56 AM CDT [facility] Not Available Not Available 09/22/2024 [...] 2.6 mg/dL 06/03 11:41 AM CDT [facility] Not Available Not Available 09/22/2024 [...] 145 mmol/ L 06/03 11:41 AM [facility] Not Available Not Available 09/22/2024 21:59:28 06/03/20 24 06/03/2024 Compr ehens tommy metab olic 2000 panel - Serum or Plasm a potassium [moles/volum e] in serum or plasma 4.7 mmol/ L low: 3.5mmo l/Lhig h: 5.1mmo l/L POTAS SIUM 4.7 3.5 - 5.1 mmol/ L 06/03 11:41 AM CD[facility] Not Available Not Available 09/22/2024 21:59:28 06/03/20 24 06/03/2024 Compr ehens tommy metab olic 2000 panel - Serum or Plasm a chloride [moles/volum e] in serum or plasma 102 mmol/ L low: 98mmol /Lhigh : 107mmo l/L CHLOR ISABEL 102 98 - 107 mmol/ L 06/03 11:41 AM CDT [facility] Not Available Not Available 09/22/2024 21:59:28 06/03/20 24 06/03/2024 Compr ehens tommy metab olic 2000 panel - Serum or Plasm a carbon dioxide, total [moles/volum e] in serum or plasma 31 mmol/ L low: 22mmol /Lhigh : 30mmol /L high CO2, VENOU S 31 (H) 22 - 30 mmol/ L 06/03 11:41 AM CDT [facility] Not Available Not Available 09/22/2024 21:59:28 06/03/20 24 06/03/2024 Compr ehens tommy metab olic 2000 panel - Serum or Plasm a anion gap in serum or plasma 11.7 mmol/ L high: 18mmol /L ANION GAP 11.7 <18.0 mmol/ L 06/03 11:41 AM CD[facility] Not Available Not Available 09/22/2024 21:59:28 06/03/20 24 06/03/2024 Compr SIL4 Systemsens tommy metab olic 1999 panel - Serum or Plasm a glucose [mass/volume ] in serum or plasma 111 mg/dL low: 70mg/d Lhigh: 99mg/d L high GLUCO SE 111 (H) 70 - 99 mg/dL 06/03 11:41 AM [facility] Not Available Not Available 09/22/2024 21:59:28 06/03/20 24 06/03/2024 Compr SIL4 Systemsens tommy metab olic 1999 panel - Serum or Plasm a urea nitrogen [mass/volume ] in serum or plasma 21 mg/dL low: 10mg/d Lhigh: 20mg/d L high BUN 21 (H) 10 - 20 mg/dL 06/03 11:41 AM CDT [facility] Not Available Not Available 09/22/2024 21:59:28 06/03/20 24 06/03/2024 Compr SIL4 Systemsens tommy metab olic 1999 panel - Serum or Plasm a creatinine [mass/volume ] in serum or plasma 0.97 mg/dL low: 0.6mg/ dLhigh : 1mg/dL CREAT ININE , BLOOD 0.97 0.60 - 1.00 mg/dL 06/03 11:41 AM CDT [facility] Not Available Not Available 09/22/2024 21:59:28 06/03/20 24 06/03/2024 Compr SIL4 Systemsens tommy metab olic 2000 panel - Serum or Plasm a urea nitrogen/cre atinine [mass ratio] in serum or plasma 22 text: 12 - 20 ratio high BUN/C REATI NINE RATIO 22 (H) 12 - 20 ratio 06/03 11:41 AM CDT [facility] Not Available Not Available 09/22/2024 21:59:28 06/03/20 24 06/03/2024 Compr SIL4 Systemsens tommy metab olic 2000 panel - Serum or Plasm a protein [mass/volume ] in serum or plasma 6.6 g/dL low: 6.3g/d Lhigh: 8.2g/d L TOTAL PROTE IN 6.6 6.3 - 8.2 g/dL 06/03 11:41 AM CDT [facility] Not Available Not Available 09/22/2024 21:59:28 06/03/20 24 06/03/2024 Compr SIL4 Systemsens tommy metab olic 2000 panel - Serum or Plasm a albumin [mass/volume ] in serum or plasma 4 g/dL low: 3.5g/d Lhigh: 5g/dL ALBUM IN 4.0 3.5 - 5.0 g/dL 06/03 11:41 AM CDT [facility] Not Available Not Available 09/22/2024 21:59:28 06/03/20 24 06/03/2024 Compr SIL4 Systemsens tommy metab olic 2000 panel - Serum or Plasm a albumin/glob ulin [mass ratio] in serum or plasma 1.5 low: 1high: 2.2 A/G RATIO 1.5 1.0 - 2.2 06/03 11:41 AM CDT [facility] Not Available Not Available 09/22/2024 21:59:28 06/03/2006/03/2024 Compr SIL4 Systemsens tommy metab olic 2000 panel - Serum or Plasm a calcium [mass/volume ] in serum or plasma 9.5 mg/dL low: 8.7mg/ dLhigh : 10.5mg /dL CALCI UM 9.5 8.7 - 10.5 mg/dL 06/03 11:41 AM CDT [facility] Not Available Not Available 09/22/2024 21:59:28 06/03/20 24 06/03/2024 Compr SIL4 Systemsens tommy metab olic 2000 panel - Serum or Plasm a bilirubin.to godwin [mass/volume ] in serum or plasma 0.4 mg/dL low: 0.2mg/ dLhigh : 1.2mg/ dL T BILI 0.4 0.2 - 1.2 mg/dL 06/03 11:41 AM CDT [facility] Not Available Not Available 09/22/2024 21:59:28 06/03/20 24 06/03/2024 Compr SIL4 Systemsens tommy metab olic 1999 panel - Serum or Plasm a aspartate aminotransfe rase [enzymatic activity/vol ume] in serum or plasma 16 U/L low: 5U/Lhi gh: 34U/L SGOT (AST) 16 5 - 34 U/L 06/03 11:41 AM [facility] Not Available Not Available 09/22/2024 21:59:28 06/03/20 24 06/03/2024 Compr ehens tommy metab olic 1999 panel - Serum or Plasm a alanine aminotransfe rase [enzymatic activity/vol ume] in serum or plasma 19 U/L low: 0U/Lhi gh: 55U/L SGPT (ALT) 19 0 - 55 U/L 06/03 11:41 AM CD[facility] Not Available Not Available 09/22/2024 21:59:28 06/03/20 24 06/03/2024 Compr SIL4 Systemsens tommy metab olic 1999 panel - Serum or Plasm a alkaline phosphatase [enzymatic activity/vol ume] in serum or plasma 118 U/L low: 40U/Lh igh: 150U/L ALKAL INE PHOSP HATAS E 118 40 - 150 U/L 06/03 11:41 AM CDT [facility] Not Available Not Available 09/22/2024 21:59:28 06/03/20 24 06/03/2024 Compr SIL4 Systemsens tommy metab ic 1999 panel - Serum or Plasm a glomerular filtration rate/1.73 sq M.predicted among non-blacks [volume rate/area] in serum, plasma or blood by creatinine-b ased formula (MDRD) low: 60 GFR, ESTIM ATED >60 >=60 06/03 11:41 AM CDT [facility] Not Available Not Available 09/22/2024 21:59:28 06/03/20 24 06/03/2024 Compr ehens tommy metab olic 2000 panel - Serum or Plasm a glomerular filtration rate/1.73 sq M.predicted among blacks [volume rate/area] in serum, plasma or blood by creatinine-b ased formula (MDRD) low: 60 GFR, EST. AFRIC AN >60 >=60 06/03 11:41 AM CDT [facility] Not Available Not Available 09/22/2024 21:59:28 06/03/20 24 06/03/2024 Compr ehens tommy metab olic 2000 panel - Serum or Plasm a glomerular filtration rate/1.73 sq M.predicted among non-blacks [volume rate/area] in serum, plasma or blood by creatinine-b ased formula (MDRD) 58 low: 60 low GFR, EST. NONAF RICAN 58 (L) >=60 06/03 11:41 AM CDT [facility] Not Available Not Available 09/22/2024 [...] Negat tommy, Error 06/03 12:00 PM CDT [facility] Not Available Not Available 09/22/2024 [...] Negat tommy 06/03 12:00 PM CDT [facility] Not Available Not Available 09/22/2024 [...] Negat tommy 06/03 12:00 PM CDT [facility] Not Available Not Available 09/22/2024 [...] Detec joão) 06/03 12:00 PM CDT [facility] Not Available Not Available 09/22/2024 [...] - 145 mmol/ L 06/06 6:[address] [facility]LY [facility] Not Available Not Available 09/22/2024 21:59:29 06/06/20 24 06/06/2024 Basic metab olic 1999 panel - Serum or Plasm a potassium [moles/volum e] in serum or plasma 4.6 mmol/ L low: 3.5mmo l/Lhig h: 5.1mmo l/L POTAS SIUM 4.6 3.5 - 5.1 mmol/ L 06/06 6:48 AM [facility] Not Available Not Available 09/22/2024 21:59:29 06/06/20 24 06/06/2024 Basic metab olic 2000 panel - Serum or Plasm a chloride [moles/volum e] in serum or plasma 98 mmol/ L low: 98mmol /Lhigh : 107mmo l/L CHLOR ISABEL 98 98 - 107 mmol/ L 06/06 6:48 AM [facility] Not Available Not Available 09/22/2024 21:59:29 06/06/20 24 06/06/2024 Basic metab olic 2000 panel - Serum or Plasm a carbon dioxide, total [moles/volum e] in serum or plasma 33 mmol/ L low: 22mmol /Lhigh : 30mmol /L high CO2, VENOU S 33 (H) 22 - 30 mmol/ L 06/06 6:[address] [facility] Not Available Not Available 09/22/2024 21:59:29 06/06/20 24 06/06/2024 Basic metab olic 2000 panel - Serum or Plasm a anion gap in serum or plasma 12.6 mmol/ L high: 18mmol /L ANION GAP 12.6 <18.0 mmol/ L 06/06 6:[address] [facility] Not Available Not Available 09/22/2024 21:59:29 06/06/20 24 06/06/2024 Basic metab olic 2000 panel - Serum or Plasm a glucose [mass/volume ] in serum or plasma 101 mg/dL low: 70mg/d Lhigh: 99mg/d L high GLUCO SE 101 (H) 70 - 99 mg/dL 06/06 6:[address] [facility] Not Available Not Available 09/22/2024 21:59:29 06/06/20 24 06/06/2024 Basic metab olic 2000 panel - Serum or Plasm a urea nitrogen [mass/volume ] in serum or plasma 32 mg/dL low: 10mg/d Lhigh: 20mg/d L high BUN 32 (H) 10 - 20 mg/dL 06/06 6:[address] ORDERLY [facility] Not Available Not Available 09/22/2024 21:59:29 06/06/20 24 06/06/2024 Basic metab olic 2000 panel - Serum or Plasm a creatinine [mass/volume ] in serum or plasma 1.05 mg/dL low: 0.6mg/ dLhigh : 1mg/dL high CREAT ININE , BLOOD 1.05 (H) 0.60 - 1.00 mg/dL 06/06 6:[address] ORDERLY [facility] Not Available Not Available 09/22/2024 21:59:29 06/06/20 24 06/06/2024 Basic metab olic 1999 panel - Serum or Plasm a urea nitrogen/cre atinine [mass ratio] in serum or plasma 30 text: 12 - 20 ratio high BUN/C REATI NINE RATIO 30 (H) 12 - 20 ratio 06/06 6:[address] ORDERLY [facility] Not Available Not Available 09/22/2024 21:59:29 06/06/20 24 06/06/2024 Basic metab olic 1999 panel - Serum or Plasm a calcium [mass/volume ] in serum or plasma 9.6 mg/dL low: 8.7mg/ dLhigh : 10.5mg /dL CALCI UM 9.6 8.7 - 10.5 mg/dL 06/06 6:48 AM [facility] Not Available Not Available 09/22/2024 21:59:29 06/06/20 24 06/06/2024 Basic metab olic 1999 panel - Serum or Plasm a glomerular filtration rate/1.73 sq M.predicted among non-blacks [volume rate/area] in serum, plasma or blood by creatinine-b ased formula (MDRD) 60 low: 60 GFR, ESTIM ATED 60 >=60 06/06 6:[address] ORDERLY [facility] Not Available Not Available 09/22/2024 21:59:29 06/06/20 24 06/06/2024 Basic metab olic 2000 panel - Serum or Plasm a glomerular filtration rate/1.73 sq M.predicted among blacks [volume rate/area] in serum, plasma or blood by creatinine-b ased formula (MDRD) low: 60 GFR, EST. AFRIC AN >60 >=60 06/06 6:[address] ORDERLY [facility] Not Available Not Available 09/22/2024 21:59:29 06/06/20 24 06/06/2024 Basic metab olic 2000 panel - Serum or Plasm a glomerular filtration rate/1.73 sq M.predicted among non-blacks [volume rate/area] in serum, plasma or blood by creatinine-b ased formula (MDRD) 53 low: 60 low GFR, EST. NONAF RICAN 53 (L) >=60 06/06 6:[address] ORDERLY [facility] LAB Not Available Not [...] - 12.00 10(3) /mcL 06/06 8:[address] ORDERLY [facility]T [facility] LAB Not Available Not Available 09/22/2024 21:59:29 06/06/20 24 06/06/2024 CBC W Auto Diffe renti al panel - Blood erythrocytes [#/volume] in blood by automated count 4.61 text: 3.80 - 5.30 10(6)/ mcL RBC 4.61 3.80 - 5.30 10(6) /mcL 06/06 8:[address] [facility] Not Available Not Available 09/22/2024 21:59:29 06/06/20 24 06/06/2024 CBC W Auto Diffe renti al panel - Blood hemoglobin [mass/volume ] in blood 13 g/dL low: 12g/dL high: 15.8g/ dL HEMOG LOBIN (HGB) 13.0 12.0 - 15.8 g/dL 06/06 8:[address] [facility] Not Available Not Available 09/22/2024 21:59:29 06/06/20 24 06/06/2024 CBC W Auto Diffe renti al panel - Blood hematocrit [volume fraction] of blood by automated count 42.2 % low: 36%hig h: 47% HEMAT OCRIT (HCT) 42.2 36.0 - 47.0 % 06/06 8:26 AM [facility] Not Available Not Available 09/22/2024 21:59:29 06/06/20 24 06/06/2024 CBC W Auto Diffe renti al panel - Blood MCV [entitic volume] by automated count 91.5 fL low: 82fLhi gh: 96fL MCV 91.5 82.0 - 96.0 fL 06/06 8:[address] [facility] Not Available Not Available 09/22/2024 21:59:29 06/06/20 24 06/06/2024 CBC W Auto Diffe renti al panel - Blood MCH [entitic mass] by automated count 28.2 pg low: 26pghi gh: 34pg MCH 28.2 26.0 - 34.0 pg 06/06 8:26 AM [facility] Not Available Not Available 09/22/2024 21:59:29 06/06/20 24 06/06/2024 CBC W Auto Diffe renti al panel - Blood MCHC [mass/volume ] by automated count 30.8 g/dL low: 31g/dL high: 36g/dL low MCHC 30.8 (L) 31.0 - 36.0 g/dL 06/06 8:26 AM [facility] Not Available Not Available 09/22/2024 21:59:29 06/06/20 24 06/06/2024 CBC W Auto Diffe renti al panel - Blood platelets [#/volume] in blood 293 text: 140 - 440 10(3)/ mcL PLATE LET COUNT 293 140 - 440 10(3) /mcL 06/06 8:[address] ORDERLY [facility] Not Available Not Available 09/22/2024 21:59:29 06/06/20 24 06/06/2024 CBC W Auto Diffe renti al panel - Blood erythrocyte distribution width [ratio] by automated count 15.2 % low: 11.8%h igh: 15.5% RDW 15.2 11.8 - 15.5 % 06/06 8:[address] [facility] Not Available Not Available 09/22/2024 21:59:29 06/06/20 24 06/06/2024 CBC W Auto Diffe renti al panel - Blood platelet mean volume [entitic volume] in blood by automated count 9.4 fL low: 9.7fLh igh: 12.4fL low MPV 9.4 (L) 9.7 - 12.4 fL 06/06 8:[address] [facility] Not Available Not Available 09/22/2024 21:59:29 06/06/20 24 06/06/2024 CBC W Auto Diffe renti al panel - Blood neutrophils/ 100 leukocytes in blood by automated count 91.6 % low: 47%hig h: 73% high NEUTR OPHIL S 91.6 (H) 47.0 - 73.0 % 06/06 8:[address] [facility] Not Available Not Available 09/22/2024 21:59:29 06/06/20 24 06/06/2024 CBC W Auto Diffe renti al panel - Blood lymphocytes/ 100 leukocytes in blood by automated count 4.8 % low: 18%hig h: 42% low LYMPH OCYTE S 4.8 (L) 18.0 - 42.0 % 06/06 8:[address] [facility] [facility] Not Available Not Available 09/22/2024 21:59:29 06/06/20 24 06/06/2024 CBC W Auto Diffe renti al panel - Blood monocytes/10 0 leukocytes in blood by automated count 3.6 % low: 4%high : 12% low MONOC YTES 3.6 (L) 4.0 - 12.0 % 06/06 8:[address] ORDERLY [facility] Not Available Not Available 09/22/2024 21:59:29 06/06/20 24 06/06/2024 CBC W Auto Diffe renti al panel - Blood eosinophils/ 100 leukocytes in blood by automated count 0 % low: 0%high : 5% EOSIN OPHIL S 0.0 0.0 - 5.0 % 06/06 8:[address] ORDERLY [facility] Not Available Not Available 09/22/2024 21:59:29 06/06/20 24 06/06/2024 CBC W Auto Diffe renti al panel - Blood basophils/10 0 leukocytes in blood by automated count 0 % low: 0%high : 1% BASOP HILS 0.0 0.0 - 1.0 % 06/06 8:[address] ORDERLY [facility] Not Available Not Available 09/22/2024 21:59:29 06/06/20 24 06/06/2024 CBC W Auto Diffe renti al panel - Blood neutrophils [#/volume] in blood by automated count 10.71 text: 1.60 - 7.70 10(3)/ mcL high ABSOL NIKOLSKI NEUTR OPHIL S 10.71 (H) 1.60 - 7.70 10(3) /mcL 06/06 8:[address] ORDERLY [facility] Not Available Not Available 09/22/2024 21:59:29 06/06/20 24 06/06/2024 CBC W Auto Diffe renti al panel - Blood lymphocytes [#/volume] in blood by automated count 0.56 text: 1.30 - 3.20 10(3)/ mcL low ABSOL NIKOLSKI LYMPH OCYTE S 0.56 (L) 1.30 - 3.20 10(3) /mcL 06/06 8:[address] ORDERLY [facility] Not Available Not Available 09/22/2024 21:59:29 06/06/20 24 06/06/2024 CBC W Auto Diffe renti al panel - Blood monocytes [#/volume] in blood by automated count 0.42 text: 0.20 - 1.00 10(3)/ mcL ABSOL NIKOLSKI MONOC YTES 0.42 0.20 - 1.00 10(3) /mcL 06/06 8:[address] ORDERLY [facility] Not Available Not Available 09/22/2024 21:59:29 06/06/20 24 06/06/2024 CBC W Auto Diffe renti al panel - Blood eosinophils [#/volume] in blood by automated count 0 text: 0.00 - 0.40 10(3)/ mcL ABSOL NIKOLSKI EOSIN OPHIL 0.00 0.00 - 0.40 10(3) /mcL 06/06 8:[address] ORDERLY [facility] Not Available Not Available 09/22/2024 21:59:29 06/06/20 24 06/06/2024 CBC W Auto Diffe renti al panel - Blood basophils [#/volume] in blood by automated count 0 text: 0.00 - 0.10 10(3)/ mcL ABSOL NIKOLSKI BASOP HILS 0.00 0.00 - 0.10 10(3) /mcL 06/06 8:26 AM [facility] Not Available Not Available 09/22/2024 21:59:29 06/06/20 24 06/06/2024 CBC W Auto Diffe renti al panel - Blood nucleated erythrocytes /100 leukocytes [ratio] in blood 0 NRBC PER 100 WBC 0 06/06 8:[address] 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 Yes RESUL TS ARE CONSI STENT WITH PERIP HERAL SMEAR REVIE W Yes 06/06 8:[address] ORDERLY [facility] [...] S 5L nc 10/08 8:34 PM CDT [facility] Not Available Not Available 10/19/2024 14:09:30 10/09/1910/08/2024 Gas panel - Arter ial blood pH of arterial blood 7.53 low: 7.35hi gh: 7.45 high PH ARTER IAL 7.53 (H) 7.35 - 7.45 10/08 8:34 PM CDT [facility] Not Available Not Available 10/19/2024 14:09:30 10/09/19 25 10/08/2024 Gas panel - Arter ial blood carbon dioxide [partial pressure] in arterial blood 29 text: 35 - 45 mmHg low PC02 (SKY RIAL) 29 (L) 35 - 45 mmHg 10/08 8:34 PM CDT [facility] Not Available Not Available 10/19/2024 14:09:30 10/09/19 25 10/08/2024 Gas panel - Arter ial blood oxygen [partial pressure] in arterial blood 88 text: 75 - 100 mmHg PO2 (SKY RIAL) 88 75 - 100 mmHg 10/08 8:34 PM CDT [facility] Not Available Not Available 10/19/2024 14:09:30 10/09/19 25 10/08/2024 Gas panel - Arter ial blood oxygen saturation in arterial blood 97 % low: 94%hig h: 100% O2 SAT ART, MEASU RED 97 94 - 100 % 10/08 8:34 PM CDT [facility] Not Available Not Available 10/19/2024 14:09:30 10/09/19 25 10/08/2024 Gas panel - Arter ial blood base arterial 3.1 mmol/ L low: -2mmol /Lhigh : 2mmol/ L high BASE ARTER IAL 3.1 (H) -2.0 - 2.0 mmol/ L 10/08 8:34 PM CDT [facility] Not Available Not Available 10/19/2024 14:09:30 10/09/19 25 10/08/2024 Gas panel - Arter ial blood bicarbonate [moles/volum e] in blood 24.2 mmol/ L low: 22mmol /Lhigh : 26mmol /L BICAR BONAT E 24.2 22.0 - 26.0 mmol/ L 10/08 8:34 PM CDT [facility] Not Available Not Available 10/19/2024 14:09:30 10/09/1910/08/2024 Gas panel - Arter ial blood arterial patency wrist artery --pre arterial puncture Positi ve - Right Radial LULU 'S TEST RESUL TS Posit tommy - Right Radia l 10/08 8:34 PM CDT [facility] Not Available Not Available 10/19/2024 14:09:30 10/09/19 25 10/08/2024 Gas panel - Arter ial blood carboxyhemog lobin/hemogl obin.total in blood 0.7 % low: 0%high : 5% CARBO XYHEM OGLOB IN 0.7 0.0 - 5.0 % 10/08 8:34 PM CDT [facility] Not Available Not Available 10/19/2024 14:09:30 10/09/19 25 10/08/2024 Gas panel - Arter ial blood methemoglobi n/hemoglobin .total in blood 0.5 % low: 0%high : 1.5% METHE MOGLO BIN 0.5 0.0 - 1.5 % 10/08 8:34 PM CDT [facility] Not Available Not Available 10/19/2024 [...] - 2.6 mg/dL 10/08 8:42 PM CDT [facility] Not Available Not Available 10/19/2024 [...] 145 mmol/ L 10/08 8:42 [facility] Not Available Not Available 10/19/2024 14:09:30 10/09/1910/08/2024 Compr ehens tommy metab olic 1999 panel - Serum or Plasm a potassium [moles/volum e] in serum or plasma 4.2 mmol/ L low: 3.5mmo l/Lhig h: 5.1mmo l/L POTAS SIUM 4.2 3.5 - 5.1 mmol/ L 10/08 8:42 PM CD[facility] Not Available Not Available 10/19/2024 14:09:30 10/09/19 25 10/08/2024 Compr ehens tommy metab olic 1999 panel - Serum or Plasm a chloride [moles/volum e] in serum or plasma 99 mmol/ L low: 98mmol /Lhigh : 107mmo l/L CHLOR ISABEL 99 98 - 107 mmol/ L 10/08 8:42 PM CDT [facility] Not Available Not Available 10/19/2024 14:09:30 10/09/19 25 10/08/2024 Compr ehens tommy metab olic 2000 panel - Serum or Plasm a carbon dioxide, total [moles/volum e] in serum or plasma 23 mmol/ L low: 22mmol /Lhigh : 30mmol /L CO2, VENOU S 23 22 - 30 mmol/ L 10/08 8:42 PM CDT [facility] Not Available Not Available 10/19/2024 14:09:30 10/09/19 25 10/08/2024 Compr ehens tommy metab olic 2000 panel - Serum or Plasm a anion gap in serum or plasma 19.2 mmol/ L high: 18mmol /L high ANION GAP 19.2 (H) <18.0 mmol/ L 10/08 8:42 PM CDT [facility] Not Available Not Available 10/19/2024 14:09:30 10/09/19 25 10/08/2024 Compr ehens tommy metab olic 2000 panel - Serum or Plasm a glucose [mass/volume ] in serum or plasma 130 mg/dL low: 70mg/d Lhigh: 99mg/d L high GLUCO SE 130 (H) 70 - 99 mg/dL 10/08 8:42 PM CDT [facility] Not Available Not Available 10/19/2024 14:09:30 10/09/19 25 10/08/2024 Compr ehens tommy metab olic 2000 panel - Serum or Plasm a urea nitrogen [mass/volume ] in serum or plasma 18 mg/dL low: 10mg/d Lhigh: 20mg/d L BUN 18 10 - 20 mg/dL 10/08 8:42 PM CDT [facility] Not Available Not Available 10/19/2024 14:09:30 10/09/19 25 10/08/2024 Compr ehens tommy metab olic 1999 panel - Serum or Plasm a creatinine [mass/volume ] in serum or plasma 1.28 mg/dL low: 0.6mg/ dLhigh : 1mg/dL high CREAT ININE , BLOOD 1.28 (H) 0.60 - 1.00 mg/dL 10/08 8:42 PM CDT [facility] Not Available Not Available 10/19/2024 14:09:30 10/09/19 25 10/08/2024 Compr ehens tommy metab olic 1999 panel - Serum or Plasm a urea nitrogen/cre atinine [mass ratio] in serum or plasma 14 text: 12 - 20 ratio BUN/C REATI NINE RATIO 14 12 - 20 ratio 10/08 8:42 PM [facility]T [facility] Not Available Not Available 10/19/2024 14:09:30 10/09/19 25 10/08/2024 Compr ehens tommy metab olic 1999 panel - Serum or Plasm a protein [mass/volume ] in serum or plasma 8 g/dL low: 6g/dLh igh: 8g/dL TOTAL PROTE IN 8.0 6.0 - 8.0 g/dL 10/08 8:42 PM CDT [facility] Not Available Not Available 10/19/2024 14:09:30 10/09/19 25 10/08/2024 Compr ehens tommy metab olic 1999 panel - Serum or Plasm a albumin [mass/volume ] in serum or plasma 4.3 g/dL low: 3.5g/d Lhigh: 5g/dL ALBUM IN 4.3 3.5 - 5.0 g/dL 10/08 8:42 PM CDT [facility] Not Available Not Available 10/19/2024 14:09:30 10/09/19 25 10/08/2024 Compr ehens tommy metab olic 2000 panel - Serum or Plasm a albumin/glob ulin [mass ratio] in serum or plasma 1.2 low: 1high: 2.2 A/G RATIO 1.2 1.0 - 2.2 10/08 8:42 PM [facility] Not Available Not Available 10/19/2024 14:09:30 10/09/1910/08/2024 Compr ehens tommy metab olic 1999 panel - Serum or Plasm a calcium [mass/volume ] in serum or plasma 10.2 mg/dL low: 8.7mg/ dLhigh : 10.5mg /dL CALCI UM 10.2 8.7 - 10.5 mg/dL 10/08 8:42 PM CDT [facility] Not Available Not Available 10/19/2024 14:09:30 10/09/1910/08/2024 Compr ehens tommy metab olic 1999 panel - Serum or Plasm a bilirubin.to godwin [mass/volume ] in serum or plasma 0.4 mg/dL low: 0.2mg/ dLhigh : 1.2mg/ dL T BILI 0.4 0.2 - 1.2 mg/dL 10/08 8:42 PM CDT [facility] Not Available Not Available 10/19/2024 14:09:30 10/09/1910/08/2024 Compr ehens tommy metab olic 1999 panel - Serum or Plasm a aspartate aminotransfe rase [enzymatic activity/vol ume] in serum or plasma 23 U/L high: 43U/L SGOT (AST) 23 <43 U/L 10/08 8:42 PM CD[facility] Not Available Not Available 10/19/2024 14:09:30 10/09/19 25 10/08/2024 Compr ehens tommy metab olic 1999 panel - Serum or Plasm a alanine aminotransfe rase [enzymatic activity/vol ume] in serum or plasma 13 U/L high: 56U/L SGPT (ALT) 13 <56 U/L 10/08 8:42 PM CD[facility] Not Available Not Available 10/19/2024 14:09:30 10/09/19 25 10/08/2024 Compr ehens tommy metab olic 1999 panel - Serum or Plasm a alkaline phosphatase [enzymatic activity/vol ume] in serum or plasma 138 U/L low: 40U/Lh igh: 150U/L ALKAL INE PHOSP HATAS E 138 40 - 150 U/L 10/08 8:42 PM CDT [facility] Not Available Not Available 10/19/2024 14:09:30 10/09/1910/08/2024 Compr ehens tommy metab olic 1999 panel - Serum or Plasm a glomerular filtration rate/1.73 sq M.predicted among non-blacks [volume rate/area] in serum, plasma or blood by creatinine-b ased formula (MDRD) 47 low: 60 low GFR, ESTIM ATED 47 (L) >=60 10/08 8:42 PM CDT [facility] Not Available Not Available 10/19/2024 14:09:30 10/09/1910/08/2024 Compr SIL4 Systemsens tommy metab olic 1999 panel - Serum or Plasm a glomerular filtration rate/1.73 sq M.predicted among blacks [volume rate/area] in serum, plasma or blood by creatinine-b ased formula (MDRD) 51 low: 60 low GFR, EST. AFRIC AN 51 (L) >=60 10/08 8:42 PM CDT [facility] Not Available Not Available 10/19/2024 14:09:30 10/09/1910/08/2024 Compr ehens tommy metab olic 1999 panel - Serum or Plasm a glomerular filtration rate/1.73 sq M.predicted among non-blacks [volume rate/area] in serum, plasma or blood by creatinine-b ased formula (MDRD) 42 low: 60 low GFR, EST. NONAF RICAN 42 (L) >=60 10/08 8:42 PM CDT [facility] Not Available Not [...] tommy, Error 10/08 9:00 PM CDT [facility] Not Available Not Available 10/19/2024 [...] Negat tommy 10/08 9:00 PM CDT [facility] Not Available Not Available 10/19/2024 [...] Negat tommy 10/08 9:00 PM CDT [facility] Not Available Not Available 10/19/2024 [...] Detec joão) 10/08 9:00 PM CDT [facility] Not Available Not Available 10/19/2024 [...] 5.000 mIU/L 10/09 7:13 AM CDT [facility] Not Available Not Available 10/19/2024 [...] <100 pg/mL 10/10 2:23 PM CDT [facility] Not Available Not Available 10/19/2024 14:09:30 10/11/19 25 10/10/2024 Natri ureti c pepti de B [Mass /volu me] in Serum or Plasm a interpretati on and review of laboratory results Normal Not Available Not Available 10/01 14:09:30 10/12/19 25 10/11/2024 CBC W Auto Diffe renti al panel - Blood leukocytes [#/volume] in blood by automated count 15 text: 4.00 - 12.00 10(3)/ mcL high WBC 15.00 (H) 4.00 - 12.00 10(3) /mcL 10/11 6:00 AM CDT [facility] Not Available Not Available 10/19/2024 14:09:30 10/12/19 25 10/11/2024 CBC W Auto Diffe renti al panel - Blood erythrocytes [#/volume] in blood by automated count 4.09 text: 3.80 - 5.30 10(6)/ mcL RBC 4.09 3.80 - 5.30 10(6) /mcL 10/11 6:00 AM CDT [facility] Not Available Not Available 10/19/2024 14:09:30 10/12/19 25 10/11/2024 CBC W Auto Diffe renti al panel - Blood hemoglobin [mass/volume ] in blood 11.5 g/dL low: 12g/dL high: 15.8g/ dL low HEMOG LOBIN (HGB) 11.5 (L) 12.0 - 15.8 g/dL 10/11 6:00 AM CDT [facility] Not Available Not Available 10/19/2024 14:09:30 10/12/19 25 10/11/2024 CBC W Auto Diffe renti al panel - Blood hematocrit [volume fraction] of blood by automated count 36.9 % low: 36%hig h: 47% HEMAT OCRIT (HCT) 36.9 36.0 - 47.0 % 10/11 6:00 AM CDT [facility] Not Available Not Available 10/19/2024 14:09:30 10/12/19 25 10/11/2024 CBC W Auto Diffe renti al panel - Blood MCV [entitic volume] by automated count 90.2 fL low: 82fLhi gh: 96fL MCV 90.2 82.0 - 96.0 fL 10/11 6:00 AM [facility] Not Available Not Available 10/19/2024 14:09:30 10/12/19 25 10/11/2024 CBC W Auto Diffe renti al panel - Blood MCH [entitic mass] by automated count 28.1 pg low: 26pghi gh: 34pg MCH 28.1 26.0 - 34.0 pg 10/11 6:00 AM CD[facility] Not Available Not Available 10/19/2024 14:09:30 10/12/19 25 10/11/2024 CBC W Auto Diffe renti al panel - Blood MCHC [mass/volume ] by automated count 31.2 g/dL low: 31g/dL high: 36g/dL MCHC 31.2 31.0 - 36.0 g/dL 10/11 6:00 AM CD[facility] Not Available Not Available 10/19/2024 14:09:30 10/12/19 25 10/11/2024 CBC W Auto Diffe renti al panel - Blood platelets [#/volume] in blood 255 text: 140 - 440 10(3)/ mcL PLATE LET COUNT 255 140 - 440 10(3) /mcL 10/11 6:00 AM CD[facility] Not Available Not Available 10/19/2024 14:09:30 10/12/19 25 10/11/2024 CBC W Auto Diffe renti al panel - Blood erythrocyte distribution width [ratio] by automated count 15.1 % low: 11.8%h igh: 15.5% RDW 15.1 11.8 - 15.5 % 10/11 6:00 AM CDT [facility] Not Available Not Available 10/19/2024 14:09:30 10/12/19 25 10/11/2024 CBC W Auto Diffe renti al panel - Blood platelet mean volume [entitic volume] in blood by automated count 10.6 fL low: 9.7fLh igh: 12.4fL MPV 10.6 9.7 - 12.4 fL 10/11 6:00 AM CDT [facility] Not Available Not Available 10/19/2024 14:09:30 10/12/19 25 10/11/2024 CBC W Auto Diffe renti al panel - Blood neutrophils/ 100 leukocytes in blood by automated count 95 % low: 47%hig h: 73% high NEUTR OPHIL S 95.0 (H) 47.0 - 73.0 % 10/11 6:00 AM CDT [facility] Not Available Not Available 10/19/2024 14:09:30 10/12/1910/11/2024 CBC W Auto Diffe renti al panel - Blood lymphocytes/ 100 leukocytes in blood by automated count 3.7 % low: 18%hig h: 42% low LYMPH OCYTE S 3.7 (L) 18.0 - 42.0 % 10/11 6:00 AM CDT [facility] Not Available Not Available 10/19/2024 14:09:30 10/12/1910/11/2024 CBC W Auto Diffe renti al panel - Blood monocytes/10 0 leukocytes in blood by automated count 1.2 % low: 4%high : 12% low MONOC YTES 1.2 (L) 4.0 - 12.0 % 10/11 6:00 AM CDT [facility] Not Available Not Available 10/19/2024 14:09:30 10/12/19 25 10/11/2024 CBC W Auto Diffe renti al panel - Blood eosinophils/ 100 leukocytes in blood by automated count 0 % low: 0%high : 5% EOSIN OPHIL S 0.0 0.0 - 5.0 % 10/11 6:00 AM CDT [facility] Not Available Not Available 10/19/2024 14:09:30 10/12/19 25 10/11/2024 CBC W Auto Diffe renti al panel - Blood basophils/10 0 leukocytes in blood by automated count 0.1 % low: 0%high : 1% BASOP HILS 0.1 0.0 - 1.0 % 10/11 6:00 AM CDT [facility] Not Available Not Available 10/19/2024 14:09:30 10/12/19 25 10/11/2024 CBC W Auto Diffe renti al panel - Blood neutrophils [#/volume] in blood by automated count 14.26 text: 1.60 - 7.70 10(3)/ mcL high ABSOL NIKOLSKI NEUTR OPHIL S 14.26 (H) 1.60 - 7.70 10(3) /mcL 10/11 6:00 AM CDT [facility] Not Available Not Available 10/19/2024 14:09:30 10/12/19 25 10/11/2024 CBC W Auto Diffe renti al panel - Blood lymphocytes [#/volume] in blood by automated count 0.55 text: 1.30 - 3.20 10(3)/ mcL low ABSOL NIKOLSKI LYMPH OCYTE S 0.55 (L) 1.30 - 3.20 10(3) /mcL 10/11 6:00 AM CDT [facility] Not Available Not Available 10/19/2024 14:09:30 10/12/19 25 10/11/2024 CBC W Auto Diffe renti al panel - Blood monocytes [#/volume] in blood by automated count 0.18 text: 0.20 - 1.00 10(3)/ mcL low ABSOL NIKOLSKI MONOC YTES 0.18 (L) 0.20 - 1.00 10(3) /mcL 10/11 6:00 AM CDT [facility] Not Available Not Available 10/19/2024 14:09:30 10/12/19 25 10/11/2024 CBC W Auto Diffe renti al panel - Blood eosinophils [#/volume] in blood by automated count 0 text: 0.00 - 0.40 10(3)/ mcL ABSOL NIKOLSKI EOSIN OPHIL 0.00 0.00 - 0.40 10(3) /mcL 10/11 6:00 AM CDT [facility] Not Available Not Available 10/19/2024 14:09:30 10/12/19 25 10/11/2024 CBC W Auto Diffe renti al panel - Blood basophils [#/volume] in blood by automated count 0.01 text: 0.00 - 0.10 10(3)/ mcL ABSOL NIKOLSKI BASOP HILS 0.01 0.00 - 0.10 10(3) /mcL 10/11 6:00 AM CDT [facility] Not Available Not Available 10/19/2024 14:09:30 10/12/19 25 10/11/2024 CBC W Auto Diffe renti al panel - Blood nucleated erythrocytes /100 leukocytes [ratio] in blood 0 NRBC PER 100 WBC 0 10/11 6:00 AM CDT [facility] Not Available Not Available 10/19/2024 14:09:30 10/12/19 25 10/11/2024 CBC W Auto Diffe renti al panel - 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 Yes RESUL TS ARE CONSI STENT WITH PERIP HERAL SMEAR REVIE W Yes 10/11 6:00 AM CDT [facility] Not Available Not Available 10/19/2024 [...] 145 mmol/ L 10/11 5:36 AM CDT [facility] Not Available Not Available 10/19/2024 14:09:30 10/12/19 25 10/11/2024 Basic metab olic 2000 panel - Serum or Plasm a potassium [moles/volum e] in serum or plasma 5.1 mmol/ L low: 3.5mmo l/Lhig h: 5.1mmo l/L POTAS SIUM 5.1 3.5 - 5.1 mmol/ L 10/11 5:36 AM CDT [facility] Not Available Not Available 10/19/2024 14:09:30 10/12/19 25 10/11/2024 Basic metab olic 1999 panel - Serum or Plasm a chloride [moles/volum e] in serum or plasma 109 mmol/ L low: 98mmol /Lhigh : 107mmo l/L high CHLOR ISABEL 109 (H) 98 - 107 mmol/ L 10/11 5:36 AM CDT [facility] Not Available Not Available 10/19/2024 14:09:30 10/12/19 25 10/11/2024 Basic metab olic 1999 panel - Serum or Plasm a carbon dioxide, total [moles/volum e] in serum or plasma 23 mmol/ L low: 22mmol /Lhigh : 30mmol /L CO2, VENOU S 23 22 - 30 mmol/ L 10/11 5:36 AM CDT [facility] Not Available Not Available 10/19/2024 14:09:30 10/12/19 25 10/11/2024 Basic metab olic 1999 panel - Serum or Plasm a anion gap in serum or plasma 10.1 mmol/ L high: 18mmol /L ANION GAP 10.1 <18.0 mmol/ L 10/11 5:36 AM CDT [facility] Not Available Not Available 10/19/2024 14:09:30 10/12/19 25 10/11/2024 Basic metab olic 1999 panel - Serum or Plasm a glucose [mass/volume ] in serum or plasma 87 mg/dL low: 70mg/d Lhigh: 99mg/d L GLUCO SE 87 70 - 99 mg/dL 10/11 5:36 AM CDT [facility] Not Available Not Available 10/19/2024 14:09:30 10/12/19 25 10/11/2024 Basic metab olic 1999 panel - Serum or Plasm a urea nitrogen [mass/volume ] in serum or plasma 28 mg/dL low: 10mg/d Lhigh: 20mg/d L high BUN 28 (H) 10 - 20 mg/dL 10/11 5:36 AM CDT [facility] Not Available Not Available 10/19/2024 14:09:30 10/12/19 25 10/11/2024 Basic metab olic 1999 panel - Serum or Plasm a creatinine [mass/volume ] in serum or plasma 1.19 mg/dL low: 0.6mg/ dLhigh : 1mg/dL high CREAT ININE , BLOOD 1.19 (H) 0.60 - 1.00 mg/dL 10/11 5:36 AM CDT [facility] Not Available Not Available 10/19/2024 14:09:30 10/12/19 25 10/11/2024 Basic metab olic 2000 panel - Serum or Plasm a urea nitrogen/cre atinine [mass ratio] in serum or plasma 24 text: 12 - 20 ratio high BUN/C REATI NINE RATIO 24 (H) 12 - 20 ratio 10/11 5:36 AM CDT [facility] Not Available Not Available 10/19/2024 14:09:30 10/12/19 25 10/11/2024 Basic metab olic 1999 panel - Serum or Plasm a calcium [mass/volume ] in serum or plasma 8.6 mg/dL low: 8.7mg/ dLhigh : 10.5mg /dL low CALCI UM 8.6 (L) 8.7 - 10.5 mg/dL 10/11 5:36 AM CDT [facility] [employer] [facility] Not Available Not Available 10/19/2024 14:09:30 10/12/19 25 10/11/2024 Basic metab olic 2000 panel - Serum or Plasm a glomerular filtration rate/1.73 sq M.predicted among non-blacks [volume rate/area] in serum, plasma or blood by creatinine-b ased formula (MDRD) 51 low: 60 low GFR, ESTIM ATED 51 (L) >=60 10/11 5:36 AM CDT [facility] [employer] [facility] Not Available Not Available 10/19/2024 14:09:30 10/12/19 25 10/11/2024 Basic metab olic 2000 panel - Serum or Plasm a glomerular filtration rate/1.73 sq M.predicted among blacks [volume rate/area] in serum, plasma or blood by creatinine-b ased formula (MDRD) 56 low: 60 low GFR, EST. AFRIC AN 56 (L) >=60 10/11 5:36 AM CDT [facility] [employer] [facility] Not Available Not Available 10/19/2024 14:09:30 10/12/19 25 10/11/2024 Basic metab olic 2000 panel - Serum or Plasm a glomerular filtration rate/1.73 sq M.predicted among non-blacks [volume rate/area] in serum, plasma or blood by creatinine-b ased formula (MDRD) 46 low: 60 low GFR, EST. NONAF RICAN 46 (L) >=60 10/11 5:36 AM CDT [facility] [employer] [facility] Not Available Not Available 10/19/2024 14:09:30 [...] 5 ng/mL 10/23 11:43 AM CDT [facility] [employer] Not Available Not Available 10/27/2024 [...] tommy, Error 10/23 1:09 AM CDT [facility] Not Available Not Available [...] Negat tommy 10/23 1:09 AM CDT [facility] Not Available Not [...] Negat tommy 10/23 1:09 AM CDT [facility] [employer] LAB Not Available Not Available 10/23/2024 12:13:15 [...] not detect ed) SARSC OV2 NOT DETEC JOOÃ (Refe rence Range for this test is Not Detec joão) 10/23 1:09 AM CDT [facility] [employer] [facility] Not Available Not Available 10/23/2024 12:13:15 [...] Flow Cannu la 10/23 12:10 AM CDT [facility] [employer] [facility] Not Available Not Available 10/23/2024 12:13:15 10/24/19 25 10/23/2024 Gas panel - Arter ial blood pH of arterial blood 7.33 low: 7.35hi gh: 7.45 low PH ARTER IAL 7.33 (L) 7.35 - 7.45 10/23 12:10 AM [facility] Not Available Not Available 10/23/2024 12:13:15 10/24/1910/23/2024 Gas panel - Arter ial blood carbon dioxide [partial pressure] in arterial blood 54 text: 35 - 45 mmHg high PC02 (SKY RIAL) 54 (H) 35 - 45 mmHg 10/23 12:10 AM [facility] Not Available Not Available 10/23/2024 12:13:15 10/24/1910/23/2024 Gas panel - Arter ial blood oxygen [partial pressure] in arterial blood 61 text: 75 - 100 mmHg low PO2 (SKY RIAL) 61 (L) 75 - 100 mmHg 10/23 12:10 AM CDT [facility] Not Available Not Available 10/23/2024 12:13:15 10/24/1910/23/2024 Gas panel - Arter ial blood oxygen saturation in arterial blood 86 % low: 94%hig h: 100% low O2 SAT ART, MEASU RED 86 (L) 94 - 100 % 10/23 12:10 AM CDT [facility] Not Available Not Available 10/23/2024 12:13:15 10/24/1910/23/2024 Gas panel - Arter ial blood base arterial 2.2 mmol/ L low: -2mmol /Lhigh : 2mmol/ L high BASE ARTER IAL 2.2 (H) -2.0 - 2.0 mmol/ L 10/23 12:10 AM CDT [facility] Not Available Not Available 10/23/2024 12:13:15 10/24/1910/23/2024 Gas panel - Arter ial blood bicarbonate [moles/volum e] in blood 28.6 mmol/ L low: 22mmol /Lhigh : 26mmol /L high BICAR BONAT E 28.6 (H) 22.0 - 26.0 mmol/ L 10/23 12:10 AM CDT [facility] Not Available Not Available 10/23/2024 12:13:15 10/24/19 25 10/23/2024 Gas panel - Arter ial blood arterial patency wrist artery --pre arterial puncture Non-Ra dial Site LULU 'S TEST RESUL TS Non-R adial Site 10/23 12:10 AM CDT [facility] Not Available Not Available 10/23/2024 12:13:15 10/24/19 25 10/23/2024 Gas panel - Arter ial blood carboxyhemog lobin/hemogl obin.total in blood 1 % low: 0%high : 5% CARBO XYHEM OGLOB IN 1.0 0.0 - 5.0 % 10/23 12:10 AM CDT [facility] Not Available Not Available 10/23/2024 12:13:15 10/24/19 25 10/23/2024 Gas panel - Arter ial blood methemoglobi n/hemoglobin .total in blood 0.5 % low: 0%high : 1.5% METHE MOGLO BIN 0.5 0.0 - 1.5 % 10/23 12:10 AM CDT [facility] Not Available [...] 12.00 10(3) /mcL 10/23 12:09 AM CDT [facility] Not Available Not Available 10/23/2024 12:13:15 10/24/1910/23/2024 CBC W Auto Diffe renti al panel - Blood erythrocytes [#/volume] in blood by automated count 4.36 text: 3.80 - 5.30 10(6)/ mcL RBC 4.36 3.80 - 5.30 10(6) /mcL 10/23 12:09 AM [facility] Not Available Not Available 10/23/2024 12:13:15 10/24/1910/23/2024 CBC W Auto Diffe renti al panel - Blood hemoglobin [mass/volume ] in blood 12.3 g/dL low: 12g/dL high: 15.8g/ dL HEMOG LOBIN (HGB) 12.3 12.0 - 15.8 g/dL 10/23 12:09 AM [facility] Not Available Not Available 10/23/2024 12:13:15 10/24/1910/23/2024 CBC W Auto Diffe renti al panel - Blood hematocrit [volume fraction] of blood by automated count 40 % low: 36%hig h: 47% HEMAT OCRIT (HCT) 40.0 36.0 - 47.0 % 10/23 12:09 AM [facility] Not Available Not Available 10/23/2024 12:13:15 10/24/1910/23/2024 CBC W Auto Diffe renti al panel - Blood MCV [entitic volume] by automated count 91.7 fL low: 82fLhi gh: 96fL MCV 91.7 82.0 - 96.0 fL 10/23 12:09 AM CDT [facility] Not Available Not Available 10/23/2024 12:13:15 10/24/19 25 10/23/2024 CBC W Auto Diffe renti al panel - Blood MCH [entitic mass] by automated count 28.2 pg low: 26pghi gh: 34pg MCH 28.2 26.0 - 34.0 pg 10/23 12:09 AM CD[facility] Not Available Not Available 10/23/2024 12:13:15 10/24/19 25 10/23/2024 CBC W Auto Diffe renti al panel - Blood MCHC [mass/volume ] by automated count 30.8 g/dL low: 31g/dL high: 36g/dL low MCHC 30.8 (L) 31.0 - 36.0 g/dL 10/23 12:09 AM CDT [facility] Not Available Not Available 10/23/2024 12:13:15 10/24/1910/23/2024 CBC W Auto Diffe renti al panel - Blood platelets [#/volume] in blood 274 text: 140 - 440 10(3)/ mcL PLATE LET COUNT 274 140 - 440 10(3) /mcL 10/23 12:09 AM CDT [facility] [employer] [facility] Not Available Not Available 10/23/2024 12:13:15 10/24/19 25 10/23/2024 CBC W Auto Diffe renti al panel - Blood erythrocyte distribution width [ratio] by automated count 15.3 % low: 11.8%h igh: 15.5% RDW 15.3 11.8 - 15.5 % 10/23 12:09 AM CDT [facility] Not Available Not Available 10/23/2024 12:13:15 10/24/19 25 10/23/2024 CBC W Auto Diffe renti al panel - Blood platelet mean volume [entitic volume] in blood by automated count 9.7 fL low: 9.7fLh igh: 12.4fL MPV 9.7 9.7 - 12.4 fL 10/23 12:09 AM CD[facility] Not Available Not Available 10/23/2024 12:13:15 10/24/19 25 10/23/2024 CBC W Auto Diffe renti al panel - Blood neutrophils/ 100 leukocytes in blood by automated count 87 % low: 47%hig h: 73% high NEUTR OPHIL S 87.0 (H) 47.0 - 73.0 % 10/23 12:09 AM CDT [facility] Not Available Not Available 10/23/2024 12:13:15 10/24/19 25 10/23/2024 CBC W Auto Diffe renti al panel - Blood lymphocytes/ 100 leukocytes in blood by automated count 6.3 % low: 18%hig h: 42% low LYMPH OCYTE S 6.3 (L) 18.0 - 42.0 % 10/23 12:09 AM CDT [facility] Not Available Not Available 10/23/2024 12:13:15 10/24/19 25 10/23/2024 CBC W Auto Diffe renti al panel - Blood monocytes/10 0 leukocytes in blood by automated count 5.6 % low: 4%high : 12% MONOC YTES 5.6 4.0 - 12.0 % 10/23 12:09 AM CDT [facility] Not Available Not Available 10/23/2024 12:13:15 10/24/19 25 10/23/2024 CBC W Auto Diffe renti al panel - Blood eosinophils/ 100 leukocytes in blood by automated count 1 % low: 0%high : 5% EOSIN OPHIL S 1.0 0.0 - 5.0 % 10/23 12:09 AM CDT [facility] Not Available Not Available 10/23/2024 12:13:15 10/24/19 25 10/23/2024 CBC W Auto Diffe renti al panel - Blood basophils/10 0 leukocytes in blood by automated count 0.1 % low: 0%high : 1% BASOP HILS 0.1 0.0 - 1.0 % 10/23 12:09 AM CDT [facility] Not Available Not Available 10/23/2024 12:13:15 10/24/19 25 10/23/2024 CBC W Auto Diffe renti al panel - Blood neutrophils [#/volume] in blood by automated count 9.12 text: 1.60 - 7.70 10(3)/ mcL high ABSOL NIKOLSKI NEUTR OPHIL S 9.12 (H) 1.60 - 7.70 10(3) /mcL 10/23 12:09 AM CDT [facility] Not Available Not Available 10/23/2024 12:13:15 10/24/19 25 10/23/2024 CBC W Auto Diffe renti al panel - Blood lymphocytes [#/volume] in blood by automated count 0.66 text: 1.30 - 3.20 10(3)/ mcL low ABSOL NIKOLSKI LYMPH OCYTE S 0.66 (L) 1.30 - 3.20 10(3) /mcL 10/23 12:09 AM CDT [facility] Not Available Not Available 10/23/2024 12:13:15 10/24/19 25 10/23/2024 CBC W Auto Diffe renti al panel - Blood monocytes [#/volume] in blood by automated count 0.59 text: 0.20 - 1.00 10(3)/ mcL ABSOL NIKOLSKI MONOC YTES 0.59 0.20 - 1.00 10(3) /mcL 10/23 12:09 AM CDT [facility] Not Available Not Available 10/23/2024 12:13:15 10/24/19 25 10/23/2024 CBC W Auto Diffe renti al panel - Blood eosinophils [#/volume] in blood by automated count 0.1 text: 0.00 - 0.40 10(3)/ mcL ABSOL NIKOLSKI EOSIN OPHIL 0.10 0.00 - 0.40 10(3) /mcL 10/23 12:09 AM CDT [facility] Not Available Not Available 10/23/2024 12:13:15 10/24/19 25 10/23/2024 CBC W Auto Diffe renti al panel - Blood basophils [#/volume] in blood by automated count 0.01 text: 0.00 - 0.10 10(3)/ mcL ABSOL NIKOLSKI BASOP HILS 0.01 0.00 - 0.10 10(3) /mcL 10/23 12:09 AM CDT [facility] Not Available Not Available 10/23/2024 12:13:15 10/24/19 25 10/23/2024 CBC W Auto Diffe renti al panel - Blood nucleated erythrocytes /100 leukocytes [ratio] in blood 0 NRBC PER 100 WBC 0 10/23 12:09 AM CDT [facility] Not Available Not Available 10/23/2024 [...] 2.0 mmol/ L 10/23 12:25 AM CDT [facility] Not Available Not Available 10/23/2024 [...] 145 mmol/ L 10/23 12:28 AM CDT [facility] Not Available Not Available 10/23/2024 12:13:15 10/24/19 25 10/23/2024 Compr ehens tommy metab olic 2000 panel - Serum or Plasm a potassium [moles/volum e] in serum or plasma 4.1 mmol/ L low: 3.5mmo l/Lhig h: 5.1mmo l/L POTAS SIUM 4.1 3.5 - 5.1 mmol/ L 10/23 12:28 AM CDT [facility] Not Available Not Available 10/23/2024 12:13:15 10/24/19 25 10/23/2024 Compr ehens tommy metab olic 1999 panel - Serum or Plasm a chloride [moles/volum e] in serum or plasma 103 mmol/ L low: 98mmol /Lhigh : 107mmo l/L CHLOR ISABEL 103 98 - 107 mmol/ L 10/23 12:28 AM CDT [facility] Not Available Not Available 10/23/2024 12:13:15 10/24/19 25 10/23/2024 Compr ehens tommy metab olic 1999 panel - Serum or Plasm a carbon dioxide, total [moles/volum e] in serum or plasma 26 mmol/ L low: 22mmol /Lhigh : 30mmol /L CO2, VENOU S 26 22 - 30 mmol/ L 10/23 12:28 AM CDT [facility] Not Available Not Available 10/23/2024 12:13:15 10/24/19 25 10/23/2024 Compr ehens tommy metab olic 1999 panel - Serum or Plasm a anion gap in serum or plasma 13.1 mmol/ L high: 18mmol /L ANION GAP 13.1 <18.0 mmol/ L 10/23 12:28 AM CDT [facility] Not Available Not Available 10/23/2024 12:13:15 10/24/19 25 10/23/2024 Compr ehens tommy metab olic 1999 panel - Serum or Plasm a glucose [mass/volume ] in serum or plasma 123 mg/dL low: 70mg/d Lhigh: 99mg/d L high GLUCO SE 123 (H) 70 - 99 mg/dL 10/23 12:28 AM CDT [facility] Not Available Not Available 10/23/2024 12:13:15 10/24/19 25 10/23/2024 Compr ehens tommy metab olic 1999 panel - Serum or Plasm a urea nitrogen [mass/volume ] in serum or plasma 9 mg/dL low: 10mg/d Lhigh: 20mg/d L low BUN 9 (L) 10 - 20 mg/dL 10/23 12:28 AM CDT [facility] Not Available Not Available 10/23/2024 12:13:15 10/24/19 25 10/23/2024 Compr ehens tommy metab olic 2000 panel - Serum or Plasm a creatinine [mass/volume ] in serum or plasma 1.13 mg/dL low: 0.6mg/ dLhigh : 1mg/dL high CREAT ININE , BLOOD 1.13 (H) 0.60 - 1.00 mg/dL 10/23 12:28 AM CDT [facility] Not Available Not Available 10/23/2024 12:13:15 10/24/19 25 10/23/2024 Compr ehens tommy metab olic 2000 panel - Serum or Plasm a urea nitrogen/cre atinine [mass ratio] in serum or plasma 8 text: 12 - 20 ratio low BUN/C REATI NINE RATIO 8 (L) 12 - 20 ratio 10/23 12:28 AM T [facility] Not Available Not Available 10/23/2024 12:13:15 10/24/19 25 10/23/2024 Compr ehens tommy metab olic 2000 panel - Serum or Plasm a protein [mass/volume ] in serum or plasma 7.6 g/dL low: 6g/dLh igh: 8g/dL TOTAL PROTE IN 7.6 6.0 - 8.0 g/dL 10/23 12:28 AM CDT [facility] Not Available Not Available 10/23/2024 12:13:15 10/24/19 25 10/23/2024 Compr ehens tommy metab olic 2000 panel - Serum or Plasm a albumin [mass/volume ] in serum or plasma 4.2 g/dL low: 3.5g/d Lhigh: 5g/dL ALBUM IN 4.2 3.5 - 5.0 g/dL 10/23 12:28 AM CDT [facility] Not Available Not Available 10/23/2024 12:13:15 10/24/19 25 10/23/2024 Compr SIL4 Systemsens tommy metab olic 1999 panel - Serum or Plasm a albumin/glob ulin [mass ratio] in serum or plasma 1.2 low: 1high: 2.2 A/G RATIO 1.2 1.0 - 2.2 10/23 12:28 AM CDT [facility] Not Available Not Available 10/23/2024 12:13:15 10/24/1910/23/2024 Compr SIL4 Systemsens tommy metab olic 2000 panel - Serum or Plasm a calcium [mass/volume ] in serum or plasma 9.6 mg/dL low: 8.7mg/ dLhigh : 10.5mg /dL CALCI UM 9.6 8.7 - 10.5 mg/dL 10/23 12:28 AM CDT [facility] Not Available Not Available 10/23/2024 12:13:15 10/24/1910/23/2024 Compr SIL4 Systemsens tommy Mesmo.tv olic 1999 panel - Serum or Plasm a bilirubin.to godwin [mass/volume ] in serum or plasma 0.4 mg/dL low: 0.2mg/ dLhigh : 1.2mg/ dL T BILI 0.4 0.2 - 1.2 mg/dL 10/23 12:28 AM CDT [facility] Not Available Not Available 10/23/2024 12:13:15 10/24/1910/23/2024 Compr SIL4 Systemsens tommy metab olic 2000 panel - Serum [...] 17 <56 U/L 10/23 12:28 AM CD[facility] Not Available Not Available 10/23/2024 12:13:15 10/24/19 25 10/23/2024 Compr ehens tommy metab olic 1999 panel - Serum or Plasm a alkaline phosphatase [enzymatic activity/vol ume] in serum or plasma 148 U/L low: 40U/Lh igh: 150U/L ALKAL INE PHOSP HATAS E 148 40 - 150 U/L 10/23 12:28 AM [facility] Not Available Not Available 10/23/2024 12:13:15 10/24/19 25 10/23/2024 Compr ehens tommy metab olic 1999 panel - Serum or Plasm a glomerular filtration rate/1.73 sq M.predicted [volume rate/area] in serum, plasma or blood by creatinine-b ased formula (CKD-epi 2020) 55 low: 60 low GFR, ESTIM ATED 55 (L) >=60 10/23 12:28 AM CDT [facility] Not Available Not Available 10/23/2024 12:13:15 10/24/19 25 10/23/2024 Compr ehens tommy metab olic 1999 panel - Serum or Plasm a glomerular filtration rate/1.73 sq M.predicted among blacks [volume rate/area] in serum, plasma or blood by creatinine-b ased formula (MDRD) 59 low: 60 low GFR, EST. AFRIC AN 59 (L) >=60 10/23 12:28 AM [facility] Not Available Not Available 10/23/2024 12:13:15 10/24/19 25 10/23/2024 Compr ehens tommy metab olic 2000 panel - Serum or Plasm a glomerular filtration rate/1.73 sq M.predicted among non-blacks [volume rate/area] in serum, plasma or blood by creatinine-b ased formula (MDRD) 49 low: 60 low GFR, EST. NONAF RICAN 49 (L) >=60 10/23 12:28 AM CDT [facility] Not Available Not Available 10/23/2024 12:13:15 10/24/1910/23/2024 Compr ehens tommy metab olic 1999 panel - Serum or Plasm a interpretati on and review of laboratory results Abnorm al Not Available Not Available 12:13:15 10/27/19 25 10/26/2024 CBC W Auto Diffe renti al panel - Blood leukocytes [#/volume] in blood by automated count 11.84 text: 4.00 - 12.00 10(3)/ mcL WBC 11.84 4.00 - 12.00 10(3) /mcL 10/26 8:05 PM CDT [facility] [employer] [facility] Not Available Not Available 10/27/2024 13:50:12 10/27/19 25 10/26/2024 CBC W Auto Diffe renti al panel - Blood erythrocytes [#/volume] in blood by automated count 4.36 text: 3.80 - 5.30 10(6)/ mcL RBC 4.36 3.80 - 5.30 10(6) /mcL 10/26 8:05 PM CDT [facility] [employer] [facility] Not Available Not Available 10/27/2024 13:50:12 10/27/19 25 10/26/2024 CBC W Auto Diffe renti al panel - Blood hemoglobin [mass/volume ] in blood 12.1 g/dL low: 12g/dL high: 15.8g/ dL HEMOG LOBIN (HGB) 12.1 12.0 - 15.8 g/dL 10/26 8:05 PM [facility]T [facility] Not Available Not Available 10/27/2024 13:50:12 10/27/19 10/26/2024 CBC W Auto Diffe renti al panel - Blood hematocrit [volume fraction] of blood by automated count 40.2 % low: 36%hig h: 47% HEMAT OCRIT (HCT) 40.2 36.0 - 47.0 % 10/26 8:05 PM [facility] Not Available Not Available 10/27/2024 13:50:12 10/27/1910/26/2024 CBC W Auto Diffe renti al panel - Blood MCV [entitic volume] by automated count 92.2 fL low: 82fLhi gh: 96fL MCV 92.2 82.0 - 96.0 fL 10/26 8:05 PM CD[facility] Not Available Not Available 10/27/2024 13:50:12 10/27/19 25 10/26/2024 CBC W Auto Diffe renti al panel - Blood MCH [entitic mass] by automated count 27.8 pg low: 26pghi gh: 34pg MCH 27.8 26.0 - 34.0 pg 10/26 8:05 PM CD[facility] Not Available Not Available 10/27/2024 13:50:12 10/27/19 25 10/26/2024 CBC W Auto Diffe renti al panel - Blood MCHC [mass/volume ] by automated count 30.1 g/dL low: 31g/dL high: 36g/dL low MCHC 30.1 (L) 31.0 - 36.0 g/dL 10/26 8:05 PM CD[facility] Not Available Not Available 10/27/2024 13:50:12 10/27/19 25 10/26/2024 CBC W Auto Diffe renti al panel - Blood platelets [#/volume] in blood 296 text: 140 - 440 10(3)/ mcL PLATE LET COUNT 296 140 - 440 10(3) /mcL 10/26 8:05 PM CD[facility] Not Available Not Available 10/27/2024 13:50:12 10/27/19 25 10/26/2024 CBC W Auto Diffe renti al panel - Blood erythrocyte distribution width [ratio] by automated count 16 % low: 11.8%h igh: 15.5% high RDW 16.0 (H) 11.8 - 15.5 % 10/26 8:05 PM CDT [facility] Not Available Not Available 10/27/2024 13:50:12 10/27/19 25 10/26/2024 CBC W Auto Diffe renti al panel - Blood platelet mean volume [entitic volume] in blood by automated count 10 fL low: 9.7fLh igh: 12.4fL MPV 10.0 9.7 - 12.4 fL 10/26 8:05 PM CDT [facility] Not Available Not Available 10/27/2024 13:50:12 10/27/19 25 10/26/2024 CBC W Auto Diffe renti al panel - Blood neutrophils/ 100 leukocytes in blood by automated count 91.6 % low: 47%hig h: 73% high NEUTR OPHIL S 91.6 (H) 47.0 - 73.0 % 10/26 8:05 PM CDT [facility] Not Available Not Available 10/27/2024 13:50:12 10/27/19 25 10/26/2024 CBC W Auto Diffe renti al panel - Blood lymphocytes/ 100 leukocytes in blood by automated count 4.4 % low: 18%hig h: 42% low LYMPH OCYTE S 4.4 (L) 18.0 - 42.0 % 10/26 8:05 PM CDT [facility] Not Available Not Available 10/27/2024 13:50:12 10/27/19 25 10/26/2024 CBC W Auto Diffe renti al panel - Blood monocytes/10 0 leukocytes in blood by automated count 3.8 % low: 4%high : 12% low MONOC YTES 3.8 (L) 4.0 - 12.0 % 10/26 8:05 PM CDT [facility] Not Available Not Available 10/27/2024 13:50:12 10/27/19 25 10/26/2024 CBC W Auto Diffe renti al panel - Blood eosinophils/ 100 leukocytes in blood by automated count 0 % low: 0%high : 5% EOSIN OPHIL S 0.0 0.0 - 5.0 % 10/26 8:05 PM CDT [facility] Not Available Not Available 10/27/2024 13:50:12 10/27/19 25 10/26/2024 CBC W Auto Diffe renti al panel - Blood basophils/10 0 leukocytes in blood by automated count 0.2 % low: 0%high : 1% BASOP HILS 0.2 0.0 - 1.0 % 10/26 8:05 PM CDT [facility] Not Available Not Available 10/27/2024 13:50:12 10/27/19 25 10/26/2024 CBC W Auto Diffe renti al panel - Blood neutrophils [#/volume] in blood by automated count 10.85 text: 1.60 - 7.70 10(3)/ mcL high ABSOL NIKOLSKI NEUTR OPHIL S 10.85 (H) 1.60 - 7.70 10(3) /mcL 10/26 8:05 PM CDT [facility] Not Available Not Available 10/27/2024 13:50:12 10/27/19 25 10/26/2024 CBC W Auto Diffe renti al panel - Blood lymphocytes [#/volume] in blood by automated count 0.52 text: 1.30 - 3.20 10(3)/ mcL low ABSOL NIKOLSKI LYMPH OCYTE S 0.52 (L) 1.30 - 3.20 10(3) /mcL 10/26 8:05 PM [facility] Not Available Not Available 10/27/2024 13:50:12 10/27/19 25 10/26/2024 CBC W Auto Diffe renti al panel - Blood monocytes [#/volume] in blood by automated count 0.45 text: 0.20 - 1.00 10(3)/ mcL ABSOL NIKOLSKI MONOC YTES 0.45 0.20 - 1.00 10(3) /mcL 10/26 8:05 PM CDT [facility] Not Available Not Available 10/27/2024 13:50:12 10/27/19 25 10/26/2024 CBC W Auto Diffe renti al panel - Blood eosinophils [#/volume] in blood by automated count 0 text: 0.00 - 0.40 10(3)/ mcL ABSOL NIKOLSKI EOSIN OPHIL 0.00 0.00 - 0.40 10(3) /mcL 10/26 8:05 PM CDT [facility] Not Available Not Available 10/27/2024 13:50:12 10/27/19 25 10/26/2024 CBC W Auto Diffe renti al panel - Blood basophils [#/volume] in blood by automated count 0.02 text: 0.00 - 0.10 10(3)/ mcL ABSOL NIKOLSKI BASOP HILS 0.02 0.00 - 0.10 10(3) /mcL 10/26 8:05 PM CDT [facility] [employer] [facility] Not Available Not Available 10/27/2024 13:50:12 10/27/19 25 10/26/2024 CBC W Auto Diffe renti al panel - Blood nucleated erythrocytes /100 leukocytes [ratio] in blood 0 NRBC PER 100 WBC 0 10/26 8:05 PM CDT [facility] Not Available Not Available 10/27/2024 13:50:12 10/27/19 25 10/26/2024 CBC W Auto Diffe renti al panel - 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 Yes RESUL TS ARE CONSI STENT WITH PERIP HERAL SMEAR REVIE W Yes 10/26 8:05 PM CDT [facility] Not Available Not Available 10/27/2024 13:50:12 10/27/19 25 10/26/2024 CBC W Auto Diffe renti al panel - Blood erythrocytes [morphology] in blood by automated count Yes RBC MORPH OLOGY CONSI STENT WITH INDIC ES Yes 10/26 8:05 PM CDT [facility] Not Available Not [...] 2.6 mg/dL 10/26 7:52 PM CDT [facility] Not Available Not [...] mmol/ L 10/26 7:52 PM CDT [facility] Not Available Not Available 10/27/2024 13:50:12 10/27/19 25 10/26/2024 Compr ehens tommy metab olic 1999 panel - Serum or Plasm a potassium [moles/volum e] in serum or plasma 4.5 mmol/ L low: 3.5mmo l/Lhig h: 5.1mmo l/L POTAS SIUM 4.5 3.5 - 5.1 mmol/ L 10/26 7:52 PM CDT [facility] Not Available Not Available 10/27/2024 13:50:12 10/27/19 25 10/26/2024 Compr ehens tommy metab olic 1999 panel - Serum or Plasm a chloride [moles/volum e] in serum or plasma 102 mmol/ L low: 98mmol /Lhigh : 107mmo l/L CHLOR ISABEL 102 98 - 107 mmol/ L 10/26 7:52 PM CDT [facility] Not Available Not Available 10/27/2024 13:50:12 10/27/19 25 10/26/2024 Compr ehens tommy metab olic 1999 panel - Serum or Plasm a carbon dioxide, total [moles/volum e] in serum or plasma 28 mmol/ L low: 22mmol /Lhigh : 30mmol /L CO2, VENOU S 28 22 - 30 mmol/ L 10/26 7:52 PM CDT [facility] Not Available Not Available 10/27/2024 13:50:12 10/27/19 25 10/26/2024 Compr ehens tommy metab olic 1999 panel - Serum or Plasm a anion gap in serum or plasma 14.5 mmol/ L high: 18mmol /L ANION GAP 14.5 <18.0 mmol/ L 10/26 7:52 PM CDT [facility] Not Available Not Available 10/27/2024 13:50:12 10/27/19 25 10/26/2024 Compr ehens tommy metab olic 1999 panel - Serum or Plasm a glucose [mass/volume ] in serum or plasma 172 mg/dL low: 70mg/d Lhigh: 99mg/d L high GLUCO SE 172 (H) 70 - 99 mg/dL 10/26 7:52 PM CDT [facility] Not Available Not Available 10/27/2024 13:50:12 10/27/19 25 10/26/2024 Compr ehens tommy metab olic 1999 panel - Serum or Plasm a urea nitrogen [mass/volume ] in serum or plasma 31 mg/dL low: 10mg/d Lhigh: 20mg/d L high BUN 31 (H) 10 - 20 mg/dL 10/26 7:52 PM CDT [facility] Not Available Not Available 10/27/2024 13:50:12 10/27/19 25 10/26/2024 Compr ehens tommy metab olic 1999 panel - Serum or Plasm a creatinine [mass/volume ] in serum or plasma 1.24 mg/dL low: 0.6mg/ dLhigh : 1mg/dL high CREAT ININE , BLOOD 1.24 (H) 0.60 - 1.00 mg/dL 10/26 7:52 PM CDT [facility] Not Available Not Available 10/27/2024 13:50:12 10/27/19 25 10/26/2024 Compr ehens tommy metab olic 1999 panel - Serum or Plasm a urea nitrogen/cre atinine [mass ratio] in serum or plasma 25 text: 12 - 20 ratio high BUN/C REATI NINE RATIO 25 (H) 12 - 20 ratio 10/26 7:52 PM CDT [facility] R LAB Not Available Not Available 10/27/2024 13:50:12 10/27/19 25 10/26/2024 Compr ehens tommy metab olic 1999 panel - Serum or Plasm a protein [mass/volume ] in serum or plasma 7.2 g/dL low: 6g/dLh igh: 8g/dL TOTAL PROTE IN 7.2 6.0 - 8.0 g/dL 10/26 7:52 PM CDT [facility] Not Available Not Available 10/27/2024 13:50:12 10/27/19 25 10/26/2024 Compr ehens tommy metab olic 1999 panel - Serum or Plasm a albumin [mass/volume ] in serum or plasma 4.1 g/dL low: 3.5g/d Lhigh: 5g/dL ALBUM IN 4.1 3.5 - 5.0 g/dL 10/26 7:52 PM CDT [facility] Not Available Not Available 10/27/2024 13:50:12 10/27/19 25 10/26/2024 Compr ehens tommy metab olic 2000 panel - Serum or Plasm a albumin/glob ulin [mass ratio] in serum or plasma 1.3 low: 1high: 2.2 A/G RATIO 1.3 1.0 - 2.2 10/26 7:52 PM CDT [facility] [employer] [facility] R [facility] Not Available Not Available 10/27/2024 13:50:12 10/27/19 25 10/26/2024 Compr SIL4 Systemsens tommy metab olic 1999 panel - Serum or Plasm a calcium [mass/volume ] in serum or plasma 9.3 mg/dL low: 8.7mg/ dLhigh : 10.5mg /dL CALCI UM 9.3 8.7 - 10.5 mg/dL 10/26 7:52 PM CDT [facility] [employer] [facility] Not Available Not Available 10/27/2024 13:50:12 10/27/19 25 10/26/2024 Compr ens tommy metab olic 2000 panel - Serum or Plasm a bilirubin.to godwin [mass/volume ] in serum or plasma 0.3 mg/dL low: 0.2mg/ dLhigh : 1.2mg/ dL T BILI 0.3 0.2 - 1.2 mg/dL 10/26 7:52 PM CDT [facility] Wally R LAB Not Available Not Available 10/27/2024 13:50:12 10/27/19 25 10/26/2024 Compr SIL4 Systemsens tommy Mesmo.tv olic 1999 panel - Serum or Plasm a aspartate aminotransfe rase [enzymatic activity/vol ume] in serum or plasma 13 U/L high: 43U/L SGOT (AST) 13 <43 U/L 10/26 7:52 PM CDT [facility] networkE R LAB Not Available Not Available 10/27/2024 13:50:12 10/27/19 25 10/26/2024 Compr SIL4 Systemsens tommy metab olic 2000 panel - Serum or Plasm a alanine aminotransfe rase [enzymatic activity/vol ume] in serum or plasma 13 U/L high: 56U/L SGPT (ALT) 13 <56 U/L 10/26 7:52 PM CDT [facility] [employer] network[facility] R LAB Not Available Not Available 10/27/2024 13:50:12 10/27/19 25 10/26/2024 Compr ehens tommy metab olic 1999 panel - Serum or Plasm a alkaline phosphatase [enzymatic activity/vol ume] in serum or plasma 116 U/L low: 40U/Lh igh: 150U/L ALKAL INE PHOSP HATAS E 116 40 - 150 U/L 10/26 7:52 PM CDT [facility] [employer] [facility] R LAB Not Available Not Available 10/27/2024 13:50:12 10/27/19 25 10/26/2024 Compr SIL4 Systemsens tommy metab olic 1999 panel - Serum or Plasm a glomerular filtration rate/1.73 sq M.predicted [volume rate/area] in serum, plasma or blood by creatinine-b ased formula (CKD-epi 2020) 49 low: 60 low GFR, ESTIM ATED 49 (L) >=60 10/26 7:52 PM CDT [facility] [employer] R LAB Not Available Not Available 10/27/2024 13:50:12 10/27/19 25 10/26/2024 Compr SIL4 Systemsens tommy Mesmo.tv olic 1999 panel - Serum or Plasm a glomerular filtration rate/1.73 sq M.predicted among blacks [volume rate/area] in serum, plasma or blood by creatinine-b ased formula (MDRD) 53 low: 60 low GFR, EST. AFRIC AN 53 (L) >=60 10/26 7:52 PM CDT [facility] [employer] networkE R LAB Not Available Not Available 10/27/2024 13:50:12 10/27/19 25 10/26/2024 Compr SIL4 Systemsens tommy metab olic 2000 panel - Serum or Plasm a glomerular filtration rate/1.73 sq M.predicted among non-blacks [volume rate/area] in serum, plasma or blood by creatinine-b ased formula (MDRD) 44 low: 60 low GFR, EST. NONAF RICAN 44 (L) >=60 10/26 7:52 PM CDT [facility] [employer] [facility] R LAB Not Available Not Available 10/27/2024 [...] <100 pg/mL 10/26 8:10 PM CDT [facility] Not Available [...] 10(3) /mcL 10/26 6:01 AM CDT [facility] [employer] [facility] R LAB Not Available Not Available 10/27/2024 13:50:06 10/27/19 25 10/26/2024 CBC W Auto Diffe renti al panel - Blood erythrocytes [#/volume] in blood by automated count 3.93 text: 3.80 - 5.30 10(6)/ mcL RBC 3.93 3.80 - 5.30 10(6) /mcL 10/26 6:01 AM CDT [facility] H CENT[facility] R LAB Not Available Not Available 10/27/2024 13:50:06 10/27/19 25 10/26/2024 CBC W Auto Diffe renti al panel - Blood hemoglobin [mass/volume ] in blood 10.9 g/dL low: 12g/dL high: 15.8g/ dL low HEMOG LOBIN (HGB) 10.9 (L) 12.0 - 15.8 g/dL 10/26 6:01 AM CDT [facility] Not Available Not Available 10/27/2024 13:50:06 10/27/19 25 10/26/2024 CBC W Auto Diffe renti al panel - Blood hematocrit [volume fraction] of blood by automated count 36.2 % low: 36%hig h: 47% HEMAT OCRIT (HCT) 36.2 36.0 - 47.0 % 10/26 6:01 AM CDT [facility] Not Available Not Available 10/27/2024 13:50:06 10/27/19 25 10/26/2024 CBC W Auto Diffe renti al panel - Blood MCV [entitic volume] by automated count 92.1 fL low: 82fLhi gh: 96fL MCV 92.1 82.0 - 96.0 fL 10/26 6:01 AM CDT [facility] Not Available Not Available 10/27/2024 13:50:06 10/27/19 25 10/26/2024 CBC W Auto Diffe renti al panel - Blood MCH [entitic mass] by automated count 27.7 pg low: 26pghi gh: 34pg MCH 27.7 26.0 - 34.0 pg 10/26 6:01 AM CDT [facility] Not Available Not Available 10/27/2024 13:50:06 10/27/19 25 10/26/2024 CBC W Auto Diffe renti al panel - Blood MCHC [mass/volume ] by automated count 30.1 g/dL low: 31g/dL high: 36g/dL low MCHC 30.1 (L) 31.0 - 36.0 g/dL 10/26 6:01 AM CDT [facility] Not Available Not Available 10/27/2024 13:50:06 10/27/19 25 10/26/2024 CBC W Auto Diffe renti al panel - Blood platelets [#/volume] in blood 272 text: 140 - 440 10(3)/ mcL PLATE LET COUNT 272 140 - 440 10(3) /mcL 10/26 6:01 AM CDT [facility] LAB Not Available Not Available 10/27/2024 13:50:06 10/27/19 25 10/26/2024 CBC W Auto Diffe renti al panel - Blood erythrocyte distribution width [ratio] by automated count 15.9 % low: 11.8%h igh: 15.5% high RDW 15.9 (H) 11.8 - 15.5 % 10/26 6:01 AM CDT [facility] LAB Not Available Not Available 10/27/2024 13:50:06 10/27/19 25 10/26/2024 CBC W Auto Diffe renti al panel - Blood platelet mean volume [entitic volume] in blood by automated count 9.4 fL low: 9.7fLh igh: 12.4fL low MPV 9.4 (L) 9.7 - 12.4 fL 10/26 6:01 AM CDT [facility] Not Available Not Available 10/27/2024 13:50:06 10/27/19 25 10/26/2024 CBC W Auto Diffe renti al panel - Blood neutrophils/ 100 leukocytes in blood by automated count 93.2 % low: 47%hig h: 73% high NEUTR OPHIL S 93.2 (H) 47.0 - 73.0 % 10/26 6:01 AM CDT [facility] Not Available Not Available 10/27/2024 13:50:06 10/27/19 25 10/26/2024 CBC W Auto Diffe renti al panel - Blood lymphocytes/ 100 leukocytes in blood by automated count 3.9 % low: 18%hig h: 42% low LYMPH OCYTE S 3.9 (L) 18.0 - 42.0 % 10/26 6:01 AM CD[facility] Not Available Not Available 10/27/2024 13:50:06 10/27/19 25 10/26/2024 CBC W Auto Diffe renti al panel - Blood monocytes/10 0 leukocytes in blood by automated count 2.8 % low: 4%high : 12% low MONOC YTES 2.8 (L) 4.0 - 12.0 % 10/26 6:01 AM CDT [facility] Not Available Not Available 10/27/2024 13:50:06 10/27/19 25 10/26/2024 CBC W Auto Diffe renti al panel - Blood eosinophils/ 100 leukocytes in blood by automated count 0 % low: 0%high : 5% EOSIN OPHIL S 0.0 0.0 - 5.0 % 10/26 6:01 AM CDT [facility] Not Available Not Available 10/27/2024 13:50:06 10/27/19 25 10/26/2024 CBC W Auto Diffe renti al panel - Blood basophils/10 0 leukocytes in blood by automated count 0.1 % low: 0%high : 1% BASOP HILS 0.1 0.0 - 1.0 % 10/26 6:01 AM CDT [facility] Not Available Not Available 10/27/2024 13:50:06 10/27/19 25 10/26/2024 CBC W Auto Diffe renti al panel - Blood neutrophils [#/volume] in blood by automated count 10.15 text: 1.60 - 7.70 10(3)/ mcL high ABSOL NIKOLSKI NEUTR OPHIL S 10.15 (H) 1.60 - 7.70 10(3) /mcL 10/26 6:01 AM CDT [facility] Not Available Not Available 10/27/2024 13:50:06 10/27/19 25 10/26/2024 CBC W Auto Diffe renti al panel - Blood lymphocytes [#/volume] in blood by automated count 0.43 text: 1.30 - 3.20 10(3)/ mcL low ABSOL NIKOLSKI LYMPH OCYTE S 0.43 (L) 1.30 - 3.20 10(3) /mcL 10/26 6:01 AM CDT [facility] Not Available Not Available 10/27/2024 13:50:06 10/27/19 25 10/26/2024 CBC W Auto Diffe renti al panel - Blood monocytes [#/volume] in blood by automated count 0.31 text: 0.20 - 1.00 10(3)/ mcL ABSOL NIKOLSKI MONOC YTES 0.31 0.20 - 1.00 10(3) /mcL 10/26 6:01 AM CDT [facility] LAB Not Available Not Available 10/27/2024 13:50:06 10/27/19 25 10/26/2024 CBC W Auto Diffe renti al panel - Blood eosinophils [#/volume] in blood by automated count 0 text: 0.00 - 0.40 10(3)/ mcL ABSOL NIKOLSKI EOSIN OPHIL 0.00 0.00 - 0.40 10(3) /mcL 10/26 6:01 AM CDT [facility] Not Available Not Available 10/27/2024 13:50:06 10/27/19 25 10/26/2024 CBC W Auto Diffe renti al panel - Blood basophils [#/volume] in blood by automated count 0.01 text: 0.00 - 0.10 10(3)/ mcL ABSOL NIKOLSKI BASOP HILS 0.01 0.00 - 0.10 10(3) /mcL 10/26 6:01 AM CDT [facility] [employer] [facility] CENTE R LAB Not Available Not Available 10/27/2024 13:50:06 10/27/19 25 10/26/2024 CBC W Auto Diffe renti al panel - Blood nucleated erythrocytes /100 leukocytes [ratio] in blood 0 NRBC PER 100 WBC 0 10/26 6:01 AM CDT [facility] Not Available Not Available 10/27/2024 13:50:06 10/27/19 25 10/26/2024 CBC W Auto Diffe renti al panel - 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 Yes RESUL TS ARE CONSI STENT WITH PERIP HERAL SMEAR REVIE W Yes 10/26 6:01 AM CD[facility] Not Available Not Available 10/27/2024 13:50:06 10/27/19 25 10/26/2024 CBC W Auto Diffe renti al panel - Blood erythrocytes [morphology] in blood by automated count Yes RBC MORPH OLOGY CONSI STENT WITH INDIC ES Yes 10/26 6:01 AM CDT [facility] Not Available [...] 145 mmol/ L 10/26 5:30 AM CDT [facility] Not Available Not Available 10/27/2024 13:50:05 10/27/19 25 10/26/2024 Basic metab olic 2000 panel - Serum or Plasm a potassium [moles/volum e] in serum or plasma 4.7 mmol/ L low: 3.5mmo l/Lhig h: 5.1mmo l/L POTAS SIUM 4.7 3.5 - 5.1 mmol/ L 10/26 5:30 AM CDT [facility] Not Available Not Available 10/27/2024 13:50:05 10/27/19 25 10/26/2024 Basic metab olic 2000 panel - Serum or Plasm a chloride [moles/volum e] in serum or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 03/22/2024 15:06:38 04/06/2024 15:12:37 Abnormal vital signs 59480286 R68.89 - Low BP with tachycardi a in setting of minimal PO intake today- Advised pushing oral fluids or soup at home 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 Has decreased concentrat ion and motivation . Tearful in office; provided emotional support.- Advised discussing coping mechanisms for panic symptoms with therapist- Completed partial medication reconcilia tion in office today, as not all medication s were in their original containers to be reconciled . Continue medication s as prescribed by adult psychiatrist.- Recommende d finding community/ friends by engaging in groups related to old hobbies; suggested joining a book club. Obstructiv e sleep apnea syndrome 25749008 G47.33 - Requires BiPAP per recent hospital admission- Advised patient to use BiPAP during the day for naps [id number] MD Malena DIAZ (COSMETOLOGIST APPRENTICE) [address] [place] [address] 05/15/2024 14:52:49 06/01/2024 16:35:11 History of methamphetamine abuse [id number] 1271357 F15.21 - Congratula joão patient on abstaining from use Essential hypertension 62024062 I10 - On amlodipine 2.5 mg and irbesartan 150 mg- 05/15/24: BP 127/90 on repeat check. Given concern for acute COPD exacerbati on, will wait to adjust BP med until not acutely ill for more accurate BP check. Chronic low back pain 27 4395749 M54.50 - Chronic, not controlled - Continue home cyclobenza alok. Will add meloxicam 7.5 mg daily and refer to PT for further evaluation and treatment. - RTC in 3 months for re-evaluat ion Acute exac erbation of chronic obstructive pulmonary disease 098264460 J44.1 - Will treat COPD exacerbati on with prednisone 50 mg x5 days and azithromyc in 500 mg x1 day then 250 mg x4 days- Discussed supportive care at home with emphasis on maintainin g adequate hydration- Provided anticipato ry guidance for when to call office and/or seek emergency treatment Ex-smoker 6796223 Z87.89 1 - Congratula joão patient on abstaining from use [id number] [facility] ([facility]OS[facility]ENTICE) [address] [place] [address] 05/31/2024 13:58:25 06/03/2024 12:42:24 Dependence on supplemental oxygen 3949707192 07 Z99.81 J44.9 R06.00 - Handicap placard form completed today Chronic ob structive pulmonary disease 83865344 J44.9 - Poorly controlled COPD with frequent exacerbati ons- Has poor endurance. [facility] - CXR result from COPD exacerbati on reviewed with patient; no concern for PNA Chronic low back pain 27 5076042 M54.50 - Chronic, not controlled - Increased home cyclobenza alok to TID dosing. Will increase meloxicam to 15 mg daily. Will also refill oxycodone for breakthrou gh pain as below.- PT referral ordered at last visit- RTC in 3 months for re-evaluat ion Fibromyalgia 430237055 M 79.7 G89.29 - Chronic back pain, worse with movement- Will treat with oxycodone 5 mg BID PRN for severe/kavya akthrough pain- Controlled substance agreement signed 02/22/24- Discussed using pain medication only as needed, having Narcan available for overdose treatment Hypothyroidism 49353701 E03.9 - Low TSH 0.212 on labs from 12/2022; on levothyrox ine 125 mcg daily.- Labs 04/20/23: TSH 30.1, fT4 0.72. Levothyrox ine increased to 150 mcg daily.- 08/24/23: TSH wnl on levothyrox ine 150 mcg daily.- 12/22/23: TSH 0.045, fT4 wnl while hospitaliz ed; levothyrox ine adjusted. Repeat TSH in 4 weeks.- 05/31/24: No repeat TSH on file. Will recheck now. Tachycardia 9002541 R00. 0 - Noted on exam. Further workup pending TSH result; may be related to over-treat ment of hypothyroi dism. [id number] MD Malena DIAZ (COSMETOLOGIST APPRENTICE) [address] [place] [address] 06/08/2024 14:32:52 06/09/2024 14:00:14 Hospital inpatient stay within past 30 days 0475609794 106 Z76.89 - Admitted 06/03 to 06/06 for COPD exacerbati on- Discharge summary reviewed Acute exac erbation of chronic obstructive pulmonary disease 214385934 J44.1 - S/p hospitaliz ation for COPD exacerbati on- Continue prednisone taper per hospitalis t instructio ns- Advised calling pulmonolog ist office for appointmen t next week. Patient to discuss new sleep study vs changing BiPAP settings based on what was effective during hospitaliz ation with pulmonolog ist. [id number] MD Malena DIAZ (COSMETOLOGIST APPRENTICE) [address] [place] [address] 07/21/2024 15:13:42 07/31/2024 11:17:51 Candidal intertrigo 096805324 B37.2 - Will treat with ketoconazo le cream Pain on eye movement 630 8951685 H57.12 H11.32 H53.8 - Advised optometris t/ophthalm ologist evaluation LENARD due to pain with eye movement and blurry vision. Provided patient with informatio n for [facility] and will place referral now.- Exam also notable for subconjunc tival hemorrhage of left eye, which is likely unrelated to eye pain. Painful mouth 422349472 K13.79 - Will manage symptomati avelina with viscous liodcaine Viral syndrome 960637829 B34.9 - Nausea, diarrhea, URI symptoms suggest acute viral infection. Supportive care recommende d. Psoriasis 1495840 L40.9 - Not controlled - Advised patient to set up appointmen t with dermatolog ist [id number] MD Malena DIAZ (COSMETOLOGIST APPRENTICE) [address] [place] [address] 09/13/2024 11:34:10 09/14/2024 10:28:36 Fibromyalgia 562456920 M79.7 G89.29 - Chronic, not controlled since tapered off of prednisone by rheumatjasmin stokes. Has upcoming appointmen t next week; patient reports needing repeat blood work while off of steroids.- Will increase oxycodone 5 mg BID to TID PRN for severe/kavya akthrough pain- Controlled substance agreement signed 02/22/24. Previously discussed use only as needed and with Narcan available at home in case of respirator y depression . Chronic low back pain 27 6609132 M54.50 - Chronic, not controlled - Refilled home cyclobenza alok 10 mg TID PRN. Oxycodone for breakthrou gh pain as above.- Meloxicam discontinu ed by mindy stokes.- Following with PT Positive s creening for depression on PHQ-9 (Patient Health Questionnaire 9) 0340817956 62007 Z13.31 - Follows with PMHNP- On aripiprazo le, clonidine, duloxetine , hydroxyzin e, and sertraline per med list [id number] [facility] ([facility]OS[facility]IST APPRENTICE) [address] [place] [address] 11/02/2024 14:46:49 11/03/2024 11:45:44 Positive screening for depression on PHQ-9 (Patient Health Questionnaire 9) 9408212160 25303 Z13.31 - Follows with PMHNP- On aripiprazo le, clonidine, duloxetine , hydroxyzin e, and sertraline per med list Hospital i npatient stay within past 30 days 9592256899 106 Z76.89 - Admitted 10/23/24- for COPD exacerbati on Chronic low back pain 27 1060416 M54.50 - Chronic, not controlled on cyclobenza [...] injections ; referred to pain management Fibromyalgia 296944384 M 79.7 G89.29 - Chronic, not controlled since tapered off of prednisone by mindy stokes- Pain management as above for chronic low back pain Long-term current use of opiate analgesic drug 1505911079 66925 Z79.891 - Controlled substance agreement signed 02/22/24- Urine drug screen collected 11/02/24- Previously discussed oxycodone use only as needed and with Narcan available at home in case of respirator y depression Essential hypertension 63359417 I10 - Chronic, controlled on amlodipine 5 mg and irbesartan 150 mg daily Chronic ob structive pulmonary disease 39339469 J44.9 - Poorly controlled COPD with frequent exacerbati ons- Has poor endurance. [facility] and [facility]. - [...] Jackson Member ID Guarantor Name 05/31/2024 1 [facility] ON OR AFTER 01/30/21 (MEDICAID REPLACEMENT - HMO) Sunita Simms [id number] Sunita Simms 06/08/2024 1 [facility] ON OR AFTER 01/30/21 (MEDICAID REPLACEMENT - HMO) Sunita Simms [id number] Sunita Simms 07/21/2024 1 [facility] ON OR AFTER 01/30/21 (MEDICAID REPLACEMENT - HMO) Sunita Simms [id number] Sunita Simms 09/13/2024 1 [facility] - DOS ON OR AFTER 21 (MEDICAID REPLACEMENT - HMO) Sunita Simms [id number] Sunita Simms 11/02/2024 1 [facility] - DOS ON OR AFTER 21 (MEDICAID REPLACEMENT - HMO) Sunita Simms [id number] Sunita Simms Notes Date Note Type Note Provider Name and Address Organization Details Recorded Time 4 text/html COPD- Improved since treatment for recent exacerbation- Still gets short of breath with walking short distances- Has handicap placard form to be completed Low back pain- Pain is not well controlled- Has not noticed a difference with the meloxicam LIANNE STACK MD Attn: [address] [place], [address], [facility] 06/01/2024 21:57:40 4 text/html Hospital follow upCOPD [...] breath are about at baseline- Appointment with welding machine operator electroslag in early July- Ex- is staying with her at home for the next week. Does not feel safe to be sleeping by herself. LIANNE STACK MD Attn: [address] [place], [address], [facility] 06/08/2024 15:11:39 4 text/html Rashes- Has been [...] dry skin is from psoriasis- Sees a netbackup admin but needs to schedule an appointment URI [...] MD Attn: [address]ing[address] , [place], [address], [place] [facility] 07/30/2024 11:59:26 5 text/html Chronic pain- Shoulders, legs, hips, and back hurt worse than usual- Was weaned off of prednisone by food consultant. Last visit 6+ weeks ago. Last dose of steroids was 3 days ago.- Was taken off of meloxicam by food consultant due to stomach side effects. Has been [...] due to: ____}}.- Visit was conducted over [employer].- Physician's primary practice site: [facility] - {{Site 16 ([place])* Site 14 ([place]) Site 20 ([place])}}- Location of patient: {{home* work other:}}- Time started: 2:01 PM- Time ended: 2:11 PM- Total length of visit: 9m43s LIANNE STACK MD Attn: Accounting[address] , [place], [address], [place] [facility] 09/13/2024 15:20:19 5 text/html Hospital f/uCOPD exacerbationChronic back pain- Difficulty breathing varies on a daily basis. Has done more today than usual (had another appointment) and feels out of breath. Always using 4L at home. Sometimes has to go up to 6L while in the shower.- Still using BiPAP at home but has problems with using the machine. Has been using [employer] as supplier and plans to switch to [employer].- Back pain is sometimes so bad she can't walk. Has not done PT due to being hospitalized on the day that she was supposed to start therapy services. LIANNE STACK MD Attn: [address]ing[address] [facility], [place], [address], [place] - [facility] 11/02/2024 18:06:26 OBGyn Episode No OBEpisode recorded.
--- OUTSIDE RECORDS SUMMARY | 2024-12-07 15:34 | XMS_ITS | Encounter Summary ---
Author Organization [facility] Address [address] [place] [address] Phone Care Team Providers Care Tax Record Clerk Name Role Phone Lianne Stack MD Primary Care Provider Ryan Figueroa MD Unavailable Gene Russell MD Unavailable [phone] Reason for Visit * Reason Comments Medication Refill Encounter Details Date Type Department Care Team (Late st Contact Info) Description 09/28/2023 Refill [facility] - [facility]ology & Sleep Medicine [facility] [address] [place] [address] Ryan Figueroa MD [address] [place] [address] Medication Refill Social History Tobacco [...] PM CST Medication(s) [facility] Medication Refill Standing Order for Pediatricand [...] Dept 08/05/23 Office Visit [facility] 05/04/23 Office Visit Ryan Figueroa MD [facility] 01/29/23 Office Visit Ryan Figuero[facility] MD [facility] Showing recent visits within past 270 days and meeting all other requirements Future Appointments No visits were found meeting these conditions. Showing future appointments within next 90 days and meeting all other requirements Passed - Blood pressure on record in past 12 months Clinician-entered: BP Readings from Last 3 Encounters: 08/27/23 (!) 134/95 08/05/23 120/80 05/04/23 138/78 Patient-entered: No data recorded CAL FIELD REPRESENTATIVE documented in this encounter Plan of Treatment Upcoming Encounters Date Type Department Care Team (Late st Contact Info) Description 12/14/2024 11:30 AM CDT Office Visit [facility] - [facility]ology & Sleep Medicine [facility] [address] [place] [address] Ryan Figueroa MD [address] [place] [address] documented as of this encounter Visit Diagnoses Not on filedocumented in this encounter Additional Health Concerns Infection Onset Date Last Indicated Resolved Time COVID - 19 02/25/2024 02/25/2024 02/25/2024 4:10 AM CDT 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 02/25/2024 06/06/2024 9:53 AM MEDICAL FIELD REPRESENTATIVE COVID - 19 06/03/2024 06/03/2024 06/03/2024 12:0 0 PM CDT COVID - 19 10/08/2024 10/08/2024 10/08/2024 9:00 PM CDT COVID - 19 10/23/2024 10/23/2024 10/23/2024 1:09 AM CDT documented as of this encounter Care Teams Tax Record Clerk Relationship Specialty Start Date End Date Lianne Stack MD [address] [id number] PCP - General Family Medicine 01/13/23 Ryan Figueroa MD [address] [place] [address] Consulting Physician Pulmonary Disease 01/29/23 Gene Russell MD [address] [place] [address] Consulting Physician Neurology 01/28/24 documented as of this encounter
--- OUTSIDE RECORDS SUMMARY | 2024-12-07 15:34 | XMS_ITS | Encounter Summary ---
Author Organization [facility] Address [address] [place] [address] Phone Care Team Providers Care Metal Plater Name Role Phone Lianne Stack MD Primary Care Provider [phone] Ryan Figueroa MD Unavailable Gene Russell MD Unavailable [phone] Encounter Details Date Type Department Care Team (Late st Contact Info) Description 02/04/2024 Transcribe Orders [facility] [address] [place] [address] Logan Mancilla, DO [address] [address] Polymyalgia rheumatica syndrome (HCC) (Primary Dx) Social History Tobacco Use Types Packs/Day Years Used Date Smoking Tobacco: Every Day Cigarettes 1 25.3 Started: 1999 Alcohol Use Standard Drinks/Week Comments No 0 (1 standard drink = 0.6 oz pur e alcohol) [facility] Utilities Answer Date Recorded In the past 12 months has [employer], gas, oil, or water [employer] threatened to shut off services in your home? Patient declined 12/15/2023 Social Connection and Isolation Panel [NHANES] A nswer Date Recorded In a typical week, how many times do you talk on the phone with family, friends, or neighbors? Patient declined 12/15/2023 How often do you get togethe r with friends or relatives? Patient declined 12/15/2023 How often do you attend yazidi or presybeterian serv ices? Patient declined 12/15/2023 Do you belong to any clubs o r organizations such as yazidi groups, unions, fraternal or athletic groups, or [...] medical care, and heating? Patient declined 12/15/2023 [facility] - Occupational Stress Questionnaire Answer Date [...] 12/14/2024 11:30 AM CDT Office Visit [facility] - Pulmonology & Sleep Medicine [facility] [address] [place] [address] Ryan Figueroa MD [address] [place] [address] Scheduled Orders Name Type Priority Associated Diagnoses [...] CDT 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 02/25/2024 06/06/2024 9:53 AM ENGINEERING CLERK COVID - 19 06/03/2024 06/03/2024 06/03/2024 12:0 0 PM CDT COVID - 19 10/08/2024 10/08/2024 10/08/2024 9:00 PM CDT COVID - 19 10/23/2024 10/23/2024 10/23/2024 1:09 AM CDT documented as of this encounter Care Teams Metal Plater Relationship Specialty Start Date End Date Lianne Stack MD [address] [place] [address] PCP - General Family Medicine 01/13/23 Ryan Figueroa MD [address] [place] [address] Consulting Physician Pulmonary Disease 01/29/23 Gene Russell MD [address] [place] [address] Consulting Physician Neurology 01/28/24 documented as of this encounter
--- OUTSIDE RECORDS SUMMARY | 2024-12-07 15:34 | XMS_ITS | Patient Health Record ---
Author Organization [facility] Address [address] [place] [address] Care Team Providers Care Home Service Advisor Name Role Phone Vicky Thurman Primary Care Provider Patrizia Hui Unavailable [phone] Allergies Allergen (clinical drug ingredient) Drug/Non Drug [...] Active Nystatin - as directed Unknown Nystatin 838042 UNIT/GM 1 application Externally Twice a day [...] Female Encounters Encounter Location Date Provider Diagnosis [facility] [address] [place] [address] 12/07/[address] [address] 10/25/[address] [address] 11/01/[address] [address] 11/21/2024 [facility] Assessments Encounter Date Diagnosis (ICD Code) Assessment Notes Treatment Notes Treatment Clinical Notes Section Notes 12/05/2024 Other Clinician met with client to assess needs and preferences for services. Clinician explored therapy goals, history of engagement, psychiatric history and diagnosis. Clinician provided education on same day call in therapy, traditional therapy and men's golf coach services. Referrals for preferred methods will be sent following appointment. Plan Of Treatment No Information Insurance Providers Payer Name Payer Address Payer Phone Subscriber Number Group Number Insured Name Patient Relationship to Insured Coverage Start Date Coverage End Date [facility] Attn Claims Department [address] [place] [address] [id number] Sunita Daniels Self - patient is the insured
--- OUTSIDE RECORDS SUMMARY | 2024-12-07 15:34 | XMS_ITS | Clinical Summary ---
Author Organization [facility] Address [address] [place] [address] Care Team Providers Care Clinical Statistics Manager Name Role Phone Lianne Stack MD Primary Care Provider [phone] Allergies Active Allergy Reactions Criticality Noted Date [...] 1 tablet (137 mcg total) by mouth film printer before breakfast 30 tablet 4 Active albuterol [...] dorsum. Will call with culture results - [facility] skin care reviewed - Referral to Rheumatology [...] Overview (03/29/2024): Decreased libido;Recorded Elsewhere: No Location: [facility] Source: EHR Chronic: N Practice ID: [id number] Billable Time: 03:15:00 PM Intractable migraine without aura and without status migrainosus 06/20/2018 COPD (chronic obstructive pulmonary disease) (CM S/HCC) 02/10/2018 Overview (09/03/2022): COPD Allergic rhinitis 02/10/2018 Chronic constipation 02/10/2018 Chronic daily headache 02/10/2018 Depression 02/10/2018 History of Helicobacter pylori infection 018 History of pancreatitis 02/10/2018 JULIAN (obstructive sleep apnea) 02/10/2018 Overview (09/03/2022): Overview: ([facility] - repeated - at time patient on [...] drink = 0.6 oz pur e alcohol) [facility] Utilities Answer Date Recorded In the [...] often do you attend chur ch or temple services? Never 03/29/2024 Do you belong to any clubs o r organizations such as congregational groups, unions, fraternal or athletic groups, or [...] time in the past 12 m [facility], were you homeless or living in a group home (including now)? No 03/29/2024 Personal Safety Answer Date Recorded Have you ever been in or are you currently in a harmful physical or emotional relationship or is someone making you feel afraid or unsafe? Denies 03/29/2024 Comments No Sex and Gender Information Value Date Recorded Sex Assigned at Not on file Legal Sex Female 12:37 PM OPERATING ROOM REGISTERED NURSE Gender Identity Not on file Sexual Orientation [...] Associated Diagnosis Comments COLONOSCOPY 06/19/2010 12:00 AM OPERATING ROOM REGISTERED NURSE from Last 3 Months or Most Recently Relevant to Health Maintenance Results * COLONOSCOPY (06/19/2010 12:00 AM OPERATING ROOM REGISTERED NURSE) Anatomical Region Laterality Modality Other Narrative 06/19/2010 12:00 AM OPERATING ROOM REGISTERED NURSE Ordered by an unspecified provider. Procedure Note ProviderFloyd MD - 06/19/2010 12:00 AM CST PROCEDURE REPORT Patient: MARKEL DANIELS Account: [id number] Room No: : 1960 Patient Type: [facility] Attend.: Reece Ashton M.D. Admit Date: 06/19/2010 Dict.: Reece Ashton M.D. Disch. Date: PROCEDURE PERFORMED: Colonoscopy. HISTORY: 49-year-old female with a prior history of colonic polypspresently having alternating constipation and diarrhea. PHYSICAL EXAMINATION: Obese female. Lungs are clear. Cardiovascular examination was unremarkable. PROCEDURE: Colonoscopy was performed with the [employer] video endoscope.The patient was premedicated by anesthesia. [...] TD: 06/20/2010 11:07 CC: Dr. Glenroy Power [place], [place] PROCEDURE REPORT Authenticated by Reece Ashton MD On 06/23/2010 07:33:00 AM Historical Provider ENDOSCOPY PROCEDURES Shelby l Result from Last 3 Months or Most Recently Relevant to Health Maintenance Insurance DR [address] [place] [address] [facility] [address] [place] [address] [address] Advance Directives For more information, please contact: [phone] * Full Code (Latest Code Status on File) Date Activated Date Inactivated Comments 03/29/2024 4:20 AM 04/05/2024 6:34 PM * Full Code Date Activated Date Inactivated Comments 09/20/2020 3:43 AM 09/22/2020 5:29 PM Care Teams Clinical Statistics Manager Relationship Specialty Start Date End Date Lianne Stack MD [address] [place] [address] PCP - General Obstetrics and Gynecology 11/25/23
--- OUTSIDE RECORDS SUMMARY | 2024-12-07 15:34 | XMS_ITS | Encounter Summary ---
Author Organization [facility] Address [facility] [place] [address] Care Team Providers Care Agile Qa Tester Name Role Phone Glenroy Power DO Primary Care Provider [phone] Claudette Dangelo MD Primary Care Provider [phone] Claudette Dangelo MD Primary Care Provider [phone] Lianne Stack MD Primary Care Provider [phone] Reason for Visit * Reason Comments Refill Request Encounter Details Date Type Department Care Team (Late st Contact Info) Description 01/08/2020 Refill [facility] [address] [place] [address] Michelle Agee MD [address] [place] [address] Refill Request Social History Tobacco Use Types Packs/Day Years Used Date Smoking Tobacco: Every Day Cigarettes 1 45 Smokeless Tobacco: Never Alcohol Use Standard Drinks/Week Comments Not Currently 0 (1 standard drink = 0.6 oz pur e alcohol) last drink 23 years ago Comments No Sex and Gender Information Value Date Recorded Sex Assigned at Not on file Legal Sex Female 6:25 AM OPINION POLLS 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 vitamin D, ergocalciferol, (DRISDOL) 1.25 MG (40318 UT) capsule [Pharmacy Med Name: VITAMIN D2 [...] Description 01/17/2025 11:20 AM CDT Office Visit [facility] - Rheumatology [address], [address] [place] [address] Logan Mancilla DO [address] [facility] [address] [place] [address] documented as of this encounter Visit Diagnoses Diagnosis Vitamin D deficiency- Primary Anti-TPO antibodies present Other and unspecified nonspecific immunological findings Arthralgia, unspecified joint Psoriasis Other psoriasis documented in this encounter Care Teams Agile Qa Tester Relationship Specialty Start Date End Date Glenroy Power DO [address] [facility] [address] [place] [address] [address] [place] [address] PCP - General 05/14/21 06/17/21 Claudette Dangelo MD [address] [place] [address] PCP - General 09/07/19 05/12/21 Claudette Dangelo MD [address] [place] [address] PCP - General 06/18/21 07/05/24 Lianne Stack MD [address] [facility] [address] [place] [address] PCP - General Family Medicine 07/06/24 documented as of this encounter
--- OUTSIDE RECORDS SUMMARY | 2024-12-07 15:34 | XMS_ITS | Encounter Summary ---
Author Organization [facility] Address [address] [place] [address] Phone Care Team Providers Care Livestock Judging Coach Name Role Phone Lianne Stack MD Primary Care Provider [phone] Ryan Figueroa MD Unavailable Gene Russell MD Unavailable [phone] Encounter Details Date Type Department Care Team (Late st Contact Info) Description 04/05/2024 Home Health Resumpti on of Care Planning [facility] [address] [place] [address] Social History Tobacco Use Types Packs/Day Years Used Date Smoking Tobacco: Every Day Cigarettes 1 25.3 Started: 1999 Alcohol Use Standard Drinks/Week Comments No 0 (1 standard drink = 0.6 oz pur e alcohol) [facility] Utilities Answer Date Recorded In the past 12 months has [employer], gas, oil, or water [employer] threatened to shut off services in your home? Patient declined 02/25/2024 Social Connection and Isolation Panel [NHANES] A nswer Date Recorded In a typical week, how many times do you talk on the phone with family, friends, or neighbors? Patient declined 02/25/2024 How often do you get togethe r with friends or relatives? Patient declined 02/25/2024 How often do you attend worship or druze serv ices? Patient declined 02/25/2024 Do you belong to any clubs o r organizations such as worship groups, unions, fraternal or athletic groups, or [...] medical care, and heating? Patient declined 02/25/2024 [facility] - Occupational Stress Questionnaire Answer Date [...] any time in the past 12 m [facility], were you homeless or living in a usp (including now)? 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 02/25/2024 06/06/2024 9:53 AM TESTER SOUND COVID - 19 06/03/2024 06/03/2024 06/03/2024 12:0 0 PM CDT COVID - 19 10/08/2024 10/08/2024 10/08/2024 9:00 PM CDT COVID - 19 10/23/2024 10/23/2024 10/23/2024 1:09 AM CDT documented as of this encounter Care Teams Livestock Judging Coach Relationship Specialty Start Date End Date Lianne Stack MD [address] [place], [place] [id number] PCP - General Family Medicine 01/13/23 Ryan Figueroa MD [address] [place] [address] Consulting Physician Pulmonary Disease 01/29/23 Gene Russell MD [address] [place] [address] Consulting Physician Neurology 01/28/24 documented as of this encounter
--- OUTSIDE RECORDS SUMMARY | 2024-12-07 15:35 | XMS_ITS ---
Author Organization [facility] Address [address] [place] [address] Care Team Providers Care Teacher Advisor Name Role Phone Vicky Thurman Primary Care Provider REASON FOR VISIT follow up Social History Sex Assigned At : Social History Observation Description Sex Assigned At Female Encounters Encounter Location Date Provider Diagnosis [facility] [address] [place] [address] 12/06/2024 Vicky Thurman Plan Of Treatment No Information Progress Notes * David DANIELSOB:1960 (64 yo F)Acc No.[id number]:12/06/2024 UNLOCKED PROGRESS NOTE Patient: Suniat BARRAGAN Provider: JELANI Nagel :1960 A ge:64 Y S ex:Female Date:12/06/2024 Address:[facility] [address], [facility] Subjective: * Chief Complaints: * 1 . Follow up. * Medical History: Objective: * Vitals: Assessment: Plan: * Treatment: * * Electronic signature of Víctor Thurman on 12/07/2024 at 03:34 PM CDT Sign off status: Pending * Provider: JELANI Nagel Date: 12/06/2024 Generated for Elder dejesus/Clarissa/eTjerroditting on: 12/07/2024 03:34 PM CDT
--- OUTSIDE RECORDS SUMMARY | 2024-12-07 15:35 | XMS_ITS | Clinical Summary ---
Author Organization [facility] Address [address] [place] [address] Care Team Providers Care Undercover Operator Name Role Phone Glenroy Power MD Primary Care Provider [phone] Allergies Active Allergy Reactions Criticality Noted Date [...] vitamin D2, ergocalciferol, (VITAMIN D, ERGOCALCIFEROL, ) 28407 UNITS capsule Take 50,000 Units by mouth [...] patient's age to complete this topic Insurance [place] Advance Directives * Full Code (Latest Code Status on File) Date Activated Date Inactivated Comments 11/18/2019 10:02 PM 11/22/2019 9:57 PM Care Teams Undercover Operator Relationship Specialty Start Date End Date Glenroy Power MD [address] [place] [address] [place] [address] PCP - General INTERNAL MEDICINE 11/18/19
--- OUTSIDE RECORDS SUMMARY | 2024-12-07 15:35 | XMS_ITS | Clinical Summary ---
Author Organization [facility] Address [address] [place] [address] Care Team Providers Care Retail Sales Advisor Name Role Phone Lianne Stack MD Primary Care Provider [phone] Ryan Figueroa MD Unavailable Gene Russell MD Unavailable [phone] Allergies Active Allergy Reactions Criticality Noted Date [...] naloxone HCl (Narcan) 4 MG/0.1ML Liquid 1 [place] by Nasal route as needed for Opioid [...] Medical Group - Pulmonology & Sleep Medicine [facility] [address] [place] [address] Ryan Figueroa MD Medication Refill 11/01/2024 Telephone [facility] [address] [place] [address] Prerna Pereira Patient Outreach 11/01/2024 Telephone [facility] [address] [place] [address] Savi Irving Patient Outreach 10/26/2024 6:49 PM CDT - 10/26/2024 11:28 PM CDT Emergency [facility] Emergency [address] [place] [phone] Mathew Bower, PAC Chronic respiratory failure Discharge Disposition: Discharged to home or Selfcare 10/26/2024 Travel 10/24/2024 Results Follow-Up [facility] - Gastroenterology - [address] [place] [id number] Cecilia Mai, ALBERTINA Pathology Surgical 10/22/2024 11:31 PM CDT - 10/26/2024 5:07 PM CDT Hospital Encounter [facility] Medical/Surgical Intensive Care [address] [place] [phone] Jim Garrido MD Krishna, Khoa Heath MD [facility], Jina Gonzáles MD Hypoxia Discharge Disposition: Discharged/Transfe rred to an ICF 10/22/2024 Travel 10/16/2024 Documentation Only [facility] Rehab at [facility] [address] [place] [phone] Cecile Munoz, PT Chronic bilateral low back pain without sciatica (Primary Dx); Decreased functional mobility and endurance 10/11/2024 10:35 AM CDT [facility] [address] [place] [address] Manjinder Herrera MD 10/11/2024 10:30 AM CDT Ancillary [facility] [address] [place] [address] Manjinder Herrera MD 10/11/2024 10:18 AM CDT Anesthesia Event [facility] Lab Periop [address] [place] [address] Clay Wyatt APRN, DOTTIE 10/11/2024 10:00 AM CDT - 10/11/2024 10:30 AM CDT [facility] [address] [place] [address] Manjinder Herrera MD EGD WITH DILATION- DUODENUM BIOPSY RULE OUT H. PYLORI, ANTRAL BIOPSY RULE OUT H. PYLORI, 7 CM HIATAL HERNIA 10/08/2024 7:52 PM CDT - 10/11/2024 6:49 PM CDT [facility] 2 South [address] [place] [address] Jim Garrido MD Dianati, Behfar, MD COPD exacerbation (HCC) Discharge Disposition: Discharged to home or Selfcare 10/08/2024 Travel 09/29/2024 Telephone [facility] [address] [place] [phone] Shane Rehman, LITHOGRAPHIC GENERAL WORKER No Show (2nd no show (unable to contact pt)) from Last 3 Months Immunizations Immunization Administration Dates Next Due Covid-19, Mrna, Lnp-s, Pf, 30 Mcg/0.3 Ml Dose (P fizer) 04/09/2021 Family History Medical History Relation Name Comments Emphysema Father Hypertension Father Breast Cancer Mother Cancer Mother Relation Name Status Comments Father Alive Mother Social History Tobacco Use Types Packs/Day Years Used Date Smoking Tobacco: Former Cigarettes 1 25.3 S tarted: 2000 Tobacco Cessation:Counseling Given: Not Answered Alcohol Use Standard Drinks/Week Comments No 0 (1 standard drink = 0.6 oz pur e alcohol) [facility] Utilities Answer Date Recorded In the past 12 months has th [employer], gas, oil, or water company threatened to [...] declined 10/23/2024 How often do you attend yarsanism or yarsani serv ices? Never 10/23/2024 Do you belong to any clubs o r organizations such as yarsanism groups, unions, fraternal or athletic groups, or [...] and heating? Not hard at all 10/23/2024 [facility] - Occup[facility] Stress [...] place to sleep or slept in a fdc (including now)? Patient declined 12/15/2023 Housing Stability [...] any time in the past 12 m [facility], were you homeless or living in a fdc (including now)? No 10/23/2024 Sexually Active Control [...] Medical Group - Pulmonology & Sleep Medicine - [place] [address] [place] [address] Ryan Figueroa MD [address] [place] [phone] Health Maintenance Due Date Last Done Comments [...] this topic Medical Devices Implanted Type Area Researcher Device Identifier Shelf Expiration Date Model / [...] AM CDT MRI L-SPINE W/O CONTRAST Routine 12:42 PM CDT CBC WITH AUTO DIFFERENTIAL [...] - EGD Routine 10/11/2024 10:19 AM CDT AK ESOPHAGOGASTRODUODENOSCOP Y TRANSORAL DIAGNOSTIC 10/11/2024 10:18 AM CDT EGD WITH DILATION- DUODENUM BIOPSY RULE OUT H. PYLORI, ANTRAL BIOPSY RULE OUT H. PYLORI, 7 CM HIATAL HERNIA [place] EGD FLEXIBLE TRANSNASAL D X W/COLLJ SPEC [...] PM CDT EKG SCAN 10/08/2024 12:00 AM INSPECTOR OUTSIDE STEAM DISTRIBUTION RHYTHM STRIP 10/08/2024 12:00 AM INSPECTOR OUTSIDE STEAM DISTRIBUTION HM COLONOSCOPY Routine 06/19/2010 from Last 3 [...] 8:43 PM - Electronically signed by Clay MORGAN: EDDIE Report ID: [id number] Reading Location: [id number] Procedure Note Clay Garnica MD - 10/26/2024 [...] 8:43 PM - Electronically signed by Clay MORGAN: EDDIE Report ID: [id number] Reading Location: [id number] IMPRESSION: No acute cardiopulmonary abnormality. Mathew Bower [facility] IM DIAGNOSTIC ORDER GHANSHYAM Final Result * TROPONIN I, HIGH SENSITIVITY (HSTRP) (10/26/2024 7:09 PM CDT) Only the most recent of3 resultswithin the time period is included. TROPONIN I, HIGH SENSITIVITY- LINO <3 <=14 ng/L 10/26/2024 7:55 PM CDT [facility] Comment: High-sensitivity troponin I results are reported in ng/L making the result appear to be 1,000 times higher than the contemporary troponin I value which is reported in ng/ml. Results from [place]. Blood Venipuncture / Unknown 10/26/2024 7:09 PM CDT 10/26/2024 7:21 PM CDT Mathew Bower PAC CHEMISTRY ORDERABLES Final Result [facility] [address] [place] [address] * (ABNORMAL) CBC with Auto Differential (10/26/2024 7:09 PM CDT) Only the most recent of9 resultswithin the time period is included. WBC 11.84 4.00 - 12.00 10(3)/mcL 10/26/2024 8:05 PM CDT [facility] RBC 4.36 3.80 - 5.30 10(6)/mcL 10/26/2024 8:05 PM CDT [facility] HEMOGLOBIN (HGB) 12.1 12.0 - 15.8 g/dL 10/26/2024 8:05 PM CDT [facility] HEMATOCRIT (HCT) 40.2 36.0 - 47.0 % 10/26/2024 8:05 PM CDT [facility] MCV 92.2 82.0 - 96.0 fL 10/26/2024 8:05 PM CDT [facility] MCH 27.8 26.0 - 34.0 pg 10/26/2024 8:05 PM CDT [facility] MCHC 30.1(L) 31.0 - 36.0 g/dL 10/26/2024 8:05 PM CDT [facility] PLATELET COUNT 296 140 - 440 10(3)/mcL 10/26/2024 8:05 PM CDT [facility] RDW 16.0(H) 11.8 - 15.5 % 10/26/2024 8:05 PM CDT [facility] MPV 10.0 9.7 - 12.4 fL 10/26/2024 8:05 PM CDT [facility] NEUTROPHILS 91.6(H) 47.0 - 73.0 % 10/26/2024 8:05 PM CDT [facility] LYMPHOCYTES 4.4(L) 18.0 - 42.0 % 10/26/2024 8:05 PM CDT [facility] MONOCYTES 3.8(L) 4.0 - 12.0 % 10/26/2024 8:05 PM CDT [facility] EOSINOPHILS 0.0 0.0 - 5.0 % 10/26/2024 8:05 PM CDT [facility] BASOPHILS 0.2 0.0 - 1.0 % 10/26/2024 8:05 PM CDT [facility] ABSOLUTE NEUTROPHILS 10.85(H) 1.60 - 7.70 10(3)/mcL 10/26/2024 8:05 PM CDT [facility] ABSOLUTE LYMPHOCYTES 0.52(L) 1.30 - 3.20 10(3)/mcL 10/26/2024 8:05 PM CDT [facility] ABSOLUTE MONOCYTES 0.45 0.20 - 1.00 10(3)/mcL 10/26/2024 8:05 PM CDT [facility] ABSOLUTE EOSINOPHIL 0.00 0.00 - 0.40 10(3)/mcL 10/26/2024 8:05 PM CDT [facility] ABSOLUTE BASOPHILS 0.02 0.00 - 0.10 10(3)/[facility] 10/26/2024 8:05 PM CDT [facility] NRBC PER 100 WBC 0 10/27/19 8:05 PM CDT [facility] RESULTS ARE CONSISTENT WITH PERIPHERAL SMEAR REVIEW Yes 10/26/2024 8:05 PM CDT [facility] RBC MORPHOLOGY CONSISTENT WITH INDICES Yes 10/26/2024 8:05 PM CDT [facility] Blood Venipuncture / Unknown 10/26/2024 7:09 PM CDT 10/26/2024 7:21 PM CDT Mathew Bower PAC HEMATOLOGY ORDERABLE S Final Result [facility] [address] [place] [address] * Magnesium (10/26/2024 7:09 PM CDT) Only the most recent of2 resultswithin the time period is included. MAGNESIUM 1.9 1.6 - 2.6 mg/dL 10/26/2024 7:52 PM CDT [facility] Blood Venipuncture / Unknown 10/26/2024 7:09 PM CDT 10/26/2024 7:21 PM CDT Mathew Bower PAC CHEMISTRY ORDERABLES Final Result Performing Organization Address City/[facility]/ZIP Co de Phone Number [facility] [address] [place] [address] * (ABNORMAL) CMP (10/26/2024 7:09 PM CDT) Only the most recent of3 resultswithin the time period is included. SODIUM 140 136 - 145 mmol/L 10/26/2024 7:52 PM CDT [facility] POTASSIUM 4.5 3.5 - 5.1 mmol/L 10/26/2024 7:52 PM CDT [facility] CHLORIDE 102 98 - 107 mmol/L 10/26/2024 7:52 PM CDT [facility] CO2, VENOUS 28 22 - 30 mmol/L 10/26/2024 7:52 PM CDT [facility] ANION GAP 14.5 <18.0 mmol/L 10/26/2024 7:52 PM CDT [facility] GLUCOSE 172(H) 70 - 99 mg/dL 10/26/2024 7:52 PM T [facility] BUN 31(H) 10 - 20 mg/dL 10/26/2024 7:52 PM T [facility] CREATININE, BLOOD 1.24(H) 0.60 - 1.00 mg/dL 10/26/2024 7:52 PM T [facility] BUN/CREATININE RATIO 25(H) 12 - 20 ratio 10/26/2024 7:52 PM CDT [facility] TOTAL PROTEIN 7.2 6.0 - 8.0 g/dL 10/26/2024 7:52 PM T [facility] ALBUMIN 4.1 3.5 - 5.0 g/dL 10/26/2024 7:52 PM [facility] A/G RATIO 1.3 1.0 - 2.2 10/26/2024 7:52 PM CDT [facility] CALCIUM 9.3 8.7 - 10.5 mg/dL 10/26/2024 7:52 PM T [facility] T BILI 0.3 0.2 - 1.2 mg/dL 10/26/2024 7:52 PM T [facility] SGOT (AST) 13 <43 U/L 10/26/2024 7:52 PM [facility] SGPT (ALT) 13 <56 U/L 10/26/2024 7:52 PM T [facility] ALKALINE PHOSPHATASE 116 40 - 150 U/L 10/26/2024 7:52 PM T [facility] GFR, ESTIMATED 49(L) >=60 10/26/2024 7:52 PM [facility] Comment: Creatinine Clearance is the preferred criteria for selecting drug dose adjustments in renally impaired patients. The GFR is provided as additional pertinent clinical information. GFR is reported in mL/min/1.73 sq m. Calculation based on the Chronic Kidney Disease Epidemiology Collaboration (CKD- EPI) equation refit without adjustment for race. GFR, EST. 53(L) >=60 025 7:52 PM CDT [facility] GFR, EST. NONAFRICAN 44(L) >=60 10/26/2024 7:52 PM CDT [facility] Blood Venipuncture / Unknown 10/26/2024 7:09 PM CDT 10/26/2024 7:21 PM CDT Mathew Bower PAC CHEMISTRY ORDERABLES Final Result Performing Organization Address City/[facility]/ZIP Co de Phone Number [facility] [address] [place] [address] * (ABNORMAL) B-Type Natriuretic Peptide (BNP) (10/26/2024 7:09 PM CDT) Only the most recent of2 resultswithin the time period is included. B TYPE NATRIURETIC PEPTIDE 123(H) <100 pg/mL 10/26/2024 8:10 PM CDT [facility] Blood Venipuncture / Unknown 10/26/2024 7:09 PM CDT 10/26/2024 7:21 PM CDT Mathew Bower PAC CHEMISTRY ORDERABLES Final Result Performing Organization Address City/[facility] Co de Phone Number [facility] [address] [place] [address] * EKG 12 LEAD (10/26/2024 6:49 PM CDT) Only the most recent of3 resultswithin the time period is included. Ventricular Rate 116 BPM EXTERNAL EKG Atrial Rate 116 BPM EXTERNAL EKG P-R Interval 144 ms EXTERNAL EKG QRS Duration 80 ms EXTERNAL EKG Q-T Duration 304 ms EXTERNAL EKG QTC CALCULATION 422 ms EXTERNAL EKG P [place] 62 degrees EXTERNAL EKG R [place] 9 degrees EXTERNAL EKG T [place] 44 degrees EXTERNAL EKG 10/26/2024 6:49 PM CDT Impressions EXTERNAL EKG - 10/31/2024 4:35 PM CDT Sinus tachycardia Otherwise normal ECG When compared with ECG of 22-OCT-2024 23:39, Minimal criteria for Inferior infarct are no longer present Confirmed by SONY MELTON ([id number]) on 10/31/2024 4:34:55 PM Narrative Procedure Note Sony Melton MD - 10/31/2024 IMPRESSION: Sinus tachycardia Otherwise normal ECG When compared with ECG of 22-OCT-2024 23:39, Minimal criteria for Inferior infarct are no longer present Confirmed by SONY MELTON ([id number]) on 10/31/2024 4:34:55 PM us Ramírez Sun MD IMG ECG ORDERABLES F inal Result EXTERNAL EKG * (ABNORMAL) BMP with Ca, Total (10/26/2024 4:40 AM CDT) Only the most recent of6 resultswithin the time period is included. SODIUM 141 136 - 145 mmol/L 10/26/2024 5:30 AM CDT [facility] POTASSIUM 4.7 3.5 - 5.1 mmol/L 10/26/2024 5:30 AM CDT [facility] CHLORIDE 103 98 - 107 mmol/L 10/26/2024 5:30 AM CDT [facility] CO2, VENOUS 30 22 - 30 mmol/L 10/26/2024 5:30 AM CDT [facility] ANION GAP 12.7 <18.0 mmol/L 10/26/2024 5:30 AM CDT [facility] GLUCOSE 121(H) 70 - 99 mg/dL 10/26/2024 5:30 AM CDT [facility] BUN 30(H) 10 - 20 mg/dL 10/26/2024 5:30 AM CDT [facility] CREATININE, BLOOD 1.16(H) 0.60 - 1.00 mg/dL 10/26/2024 5:30 AM CDT [facility] BUN/CREATININE RATIO 26(H) 12 - 20 ratio 10/26/2024 5:30 AM CDT [facility] CALCIUM 9.0 8.7 - 10.5 mg/dL 10/26/2024 5:30 AM CDT [facility] GFR, ESTIMATED 53(L) >=60 10/26/2024 5:30 AM CDT [facility] Comment: Creatinine Clearance is the preferred criteria for selecting drug dose adjustments in renally impaired patients. The GFR is provided as additional pertinent clinical information. GFR is reported in mL/min/1.73 sq m. Calculation based on the Chronic Kidney Disease Epidemiology Collaboration (CKD- EPI) equation refit without adjustment for race. GFR, EST. 57(L) >=60 025 5:30 AM CDT [facility] GFR, EST. NONAFRICAN 47(L) >=60 10/26/2024 5:30 AM CDT [facility] Blood Venipuncture / Unknown 10/26/2024 4:40 AM CDT 10/26/2024 4:53 AM CDT us Rossy Tay APRN, CONTINGENTS SUPERVISOR CHEMISTRY ORDERABLES Shelby l Result Performing Organization Address City/[facility] Co de Phone Number [facility] [address] [place] [address] * RHYTHM STRIP (10/26/2024 12:00 AM CDT) Only the most recent of22 resultswithin the time period is included. 10/26/2024 us Provider Scan IMG ECG ORDERABLES Final Result Performing Organization Address City/[facility]/ZIP Co de Phone Number RESULTING AGENCY * EKG SCAN (10/26/2024 12:00 AM CDT) Only the most recent of3 resultswithin the time period is included. 10/26/2024 us Provider Scan IMG ECG ORDERABLES Final Result RESULTING AGENCY * MRI L-SPINE W/O CONTRAST [...] Roland Elmore M.D. MATA: MATA Report ID: [id number] Reading Location: [id number] Procedure Note Roland Elmore MD - 10/24/2024 [...] Roland Elmore M.D. MATA: MATA Report ID: [id number] Reading Location: [id number] IMPRESSION: Constellation of levocurvature, spondylolisthesis, spondylosis, and [...] Clay Garnica M.D. KH: EDDIE Report ID: [id number] Reading Location: [id number] Procedure Note Clay Garnica MD - 10/23/2024 [...] Clay Garnica M.D. KH: EDDIE Report ID: [id number] Reading Location: [id number] IMPRESSION: No acute spinal abnormality. Jina Mora MD IMG DIAGNOSTIC ORDER GHANSHYAM Final Result * Procalcitonin (10/23/2024 9:29 AM CDT) PROCALCITONIN 0.05 <=0.25 ng/mL 10/23/2024 11:43 AM CDT [facility] Blood Venipuncture / Unknown 10/23/2024 9:29 AM CDT 10/23/2024 10:55 AM CDT Narrative [facility] - 10/23/2024 11:43 AM CDT If [...] Mora MD IMMUNOLOGY ORDERABLE S Final Result [facility] [address] [place] [address] * CT ANGIO CHEST W/WO ABDOMEN PELVIS [...] Electronically signed by Gaby Guerra M.D. SN: Report ID: [id number] Reading Location: [id number] Procedure Note Gaby Guerra MD - 10/23/2024 [...] Electronically signed by Gaby Guerra M.D. SN: Report ID: [id number] Reading Location: [id number] IMPRESSION: No CTA evidence of pulmonary embolism to the subsegmental level. Hypoventilatory chest with dependent atelectasis and areas of plate-like atelectasis in the bases, not significantly changed from previous. Mild dilation of the main pulmonary artery, which can be seen in the setting of pulmonary arterial hypertension. Moderate hiatal hernia. Mild atherosclerosis. Mild multilevel degenerative changes in the spine. us Jim Garrido MD IMG CT ORDERABLES Final R esult * (ABNORMAL) Urinalysis with Reflex (10/23/2024 2:32 AM CDT) SPECIFIC GRAVITY 1.015 1.003 - 1.030 10/23/2024 3:03 AM CDT [facility] URINE PH 6.0 5.0 - 9.0 10/23/2024 3:03 AM CDT [facility] WBC ESTERASE Negative Negative 10/23/2024 3:03 AM CDT [facility] NITRITE Negative Negative 10/23/2024 3:03 AM CDT [facility] PROTEIN, RANDOM URINE 15 mg/dL(A) Negative 10/23/2024 3:03 AM CDT [facility] URINE GLUCOSE, QUAL Negative Negative 10/23/2024 3:03 AM CDT [facility] URINE KETONES Negative Negative 10/23/2024 3:03 AM CDT [facility] UROBILINOGEN Normal Normal mg/dL 10/23/2024 3:03 AM CDT [facility] URINE BLOOD Negative Negative jacob/ul 10/23/2024 3:03 AM CDT [facility] URINALYSIS COLOR Yellow 10/24/19 3:03 AM CDT [facility] URINALYSIS CLARITY Clear 10/23/2024 3:03 AM CDT [facility] Urine (Straight Catheter) Non-Phlebotomy Collection / Unknown 10/23/2024 2:32 AM CDT 10/23/2024 2:49 AM CDT us Jim Garrdio MD URINE ORDERABLES Final Re sult [facility] [address] [place] [address] * RSV,SARS-COV-2,INFLUENZA A&B BY PCR (10/23/2024 12:20 AM CDT) Only the most recent of2 resultswithin the time period is included. FLU A Negative Negative, Error 10/23/2024 1:09 AM CDT [facility] FLU B Negative Negative 10/23/2024 1:09 AM CDT [facility] RESP SYNC VIRUS Negative Negative 1:09 AM CDT [facility] SARSCOV2 NOT DETECTED (Reference Range for this test is Not Detected) 10/23/2024 1:09 AM CDT [facility] Comment:This test was perfor med by a Reverse Senior Corporate Strategy Manager PCR Method. Swab NASOPHARYNGEAL WASHINGS / Unknown Non-Phlebotomy Collection / Unknown 10/23/2024 12:20 AM CDT 10/23/2024 12:30 AM CDT us Jim Garrido MD MICROBIOLOGY - GENERAL OR DERABLES Final Result [facility] [address] [place] [address] * (ABNORMAL) Blood Gases, Arterial w/ O2 Saturation [id number] (10/23/2024 12:06 AM CDT) Only the most recent of2 resultswithin the time period is included. Pathologist [facility] O2 STATUS 15L High Flow Cannula 10/23/2024 12:10 AM CDT [facility] PH ARTERIAL 7.33(L) 7.35 - 7.45 10/23/2024 12:10 AM CDT [facility] PC02 (ARTERIAL) 54(H) 35 - 45 mmHg 10/23/2024 12:10 AM CDT [facility] PO2 (ARTERIAL) 61(L) 75 - 100 mmHg 10/23/2024 12:10 AM CDT [facility] O2 SAT ART, MEASURED 86(L) 94 - 100 % 10/23/2024 12:10 AM CDT [facility] BASE ARTERIAL 2.2(H) -2.0 - 2.0 mmol/L 10/23/2024 12:10 AM CDT [facility] BICARBONATE 28.6(H) 22.0 - 26.0 mmol/L 10/23/2024 12:10 AM CDT [facility] LULU'S TEST RESULTS Non-Radial Site 10/23/2024 12:10 AM CDT [facility] CARBOXYHEMOGLOBIN 1.0 0.0 - 5.0 % 10/23/2024 12:10 AM CDT [facility] METHEMOGLOBIN 0.5 0.0 - 1.5 % 10/23/2024 12:10 AM CDT [facility] ART Blood Gas Arterial Punctur e / Unknown 10/23/2024 12:06 AM CDT 10/23/2024 12:06 AM CDT Jim Garrido MD CHEMISTRY ORDERABLES Shelby l Result [facility] [address] [place] [address] * Blood Culture #2 (10/23/2024 12:05 AM CDT) Only the most recent of2 resultswithin the time period is included. CULTURE RESULTS NO GROWTH WITHIN 5 DAYS, FINAL RESULT 10/28/2024 1:00 AM CDT [facility] Culture BLOOD SPECIMEN / Unknown Venipuncture / Unknown 10/23/2024 12:05 AM CDT 10/23/2024 12:05 AM CDT Jim Garrido MD MICROBIOLOGY - GENERAL OR DERABLES Final Result [facility] [address] [place] [address], [place] * Gold Top Tube (10/22/2024 11:57 PM CDT) Only the most recent of2 resultswithin the time period is included. Blood No Phlebotomy Charged / Unknown 10/22/2024 11:57 PM CDT 10/23/2024 12:03 AM CDT Jim Garrido MD CHEMISTRY ORDERABLES Shelby l Result Performing Organization Address City/[facility] Co de Phone Number [facility] [address] [place] [address] * Blue Top Tube (10/22/2024 11:57 PM CDT) Only the most recent of2 resultswithin the time period is included. Blood No Phlebotomy Charged / Unknown 10/22/2024 11:57 PM CDT 10/23/2024 12:03 AM CDT Jim Garrido MD HEMATOLOGY ORDERABLES Fin al Result Performing Organization Address [facility] Co de Phone Number [facility] [address] [place] [address] * Lactic Acid (Lactate) (10/22/2024 11:57 PM CDT) LACTIC ACID 1.3 0.7 - 2.0 mmol/L 10/23/2024 12:25 AM CDT [facility] Blood Venipuncture / Unknown 10/22/2024 11:57 PM CDT 10/23/2024 12:05 AM CDT Jim Garrido MD CHEMISTRY ORDERABLES Shelby l Result Performing Organization Address [facility] Co de Phone Number [facility] [place] [address] * Critical Care (10/22/2024 11:55 PM CDT) [...] specialty: no Care discussed with: admitting provider Jim Garrido MD PROCEDURE/MINOR SURGICAL ORDERABLES Final Result * Pathology Surgical (10/11/2024 10:24 AM CDT) Case Report Surgical Pathology Report Case: [id number] Authorizing Provider: Manjinder Herrera MD Collected: 10/11/2024 10:24 AM Ordering Location: [facility] Received: 10/11/2024 11:56 AM [facility] [address] [place] [address] Pathologist: Clarke Burks MD PhD Specimens: A) - Duodenum, DUODENUM BIOPSY RULE OUT H. PYLORI B) - Stomach, ANTRAL BIOPSY RULE OUT H. PYLORI 10/12/2024 9:30 AM CDT [facility] FINAL DIAGNOSIS A. Duodenum, biopsy: - Duodenal mucosa, negative for diagnostic abnormalities B. Antrum, rule out H. pylori, biopsy: - Gastric mucosa with focal mild chronic inflammation - Negative for acute inflammation or H. pylori by H&E stain 10/12/2024 9:30 AM CDT [facility] at 0930 CDT Pre-Operative Diagnosis DYSPHAGIA 10/12/2024 9:30 AM CDT [facility] Gross Description A. DUODENUM BIOPSY RULE [...] 19 minutes. MH/sb 10/12/2024 9:30 AM CDT [facility] Microscopic Description Microscopic examination was performed which supports the final diagnosis. All control tissues stained appropriately. 10/12/2024 9:30 AM CDT [facility] Tissue DUODENAL STRUCTURE / Unknown 10/11/2024 10:24 AM CDT 10/11/2024 11:56 AM CDT Tissue specimen (specimen) STOMACH STRUCTURE / Unknown 10/11/2024 10:27 AM CDT 10/11/2024 11:56 AM CDT Manjinder Herrera MD PATHOLOGY/CYTOLOGY ORDERA BLES Final Result [facility] [address] [place] [address] * GI LAB IMAGING - EGD (10/11/2024 10:19 AM CDT) Only the most recent of2 resultswithin the time period is included. Manjinder Herrera MD IMG DIAGNOSTIC ORDERABLES Final [...] Patient name AMNA Moreno 1960 Patient ID (I) [id number] Indications: COPD, Hypertension and Congestive heart failure. [...] lbs. BMI (BSA) 34.37 kg/m^2 (2.15 m^2) Computer Application Developer [facility] Room 234 Interpreting Linh VALENTINO Physician Sony Physician Procedure Note Sony Melton MD - 10/11/2024 Transthoracic Echocardiography Report (TTE) Patient name AMNA Moreno 1960 Patient ID (UPI) [id number] Indications: COPD, Hypertension and Congestive heart failure. [...] lbs. BMI (BSA) 34.37 kg/m^2 (2.15 m^2) Computer Application Developer [facility] Room 234 Interpreting Melton Ramesh VALENTINO Physician Sony Physician Viky Damon MD IMG ECHO ORDERABLES Edited Res ult - Final * Hemoglobin A1C w/ Estimated Glucose (10/09/2024 3:56 AM CDT) HGB-A1C 5.7 4.0 - 6.0 % 10/09/2024 10:37 AM CDT [facility] Est Average Glucose 116.9 mg/dL 10/09/2024 10:37 AM CDT [facility] Blood Venipuncture / Unknown 10/09/2024 3:56 AM CDT 10/09/2024 4:01 AM CDT Narrative [facility] - 10/09/2024 10:37 AM CDT HEMOGLOBIN A1C: DIABETIC PATIENTS: WELL-CONTROLLED: 6.2 - 7.0 INTERMEDIATE WELL-CONTROLLED: 7.0 - 9.0 POORLY-CONTROLLED: >9.0 Specimens containing greater than 5% of Hemoglobin F may result in lower than expected % HbA1C results. Viky Damon MD CHEMISTRY ORDERABLES Final Res ult Performing Organization Address City/[facility]/ZIP Co de Phone Number [facility] [address] [place] [address] * (ABNORMAL) Thyroid Stimulating Hormone (TSH) (10/09/2024 3:56 AM CDT) TSH 108.576(H) 0.300 - 5.000 mIU/L 10/09/2024 7:13 AM CDT [facility] Blood Venipuncture / Unknown 10/09/2024 3:56 AM CDT 10/09/2024 4:01 AM CDT us Michelle Cast APRN, CNP CHEMISTRY ORDERABLES Final Result [facility] [address] [place] [address] * Critical Care (10/08/2024 8:20 PM CDT) [...] Most Recently Relevant to Health Maintenance Insurance Stacey MCMULLEN [address] [id number] MEDICAID [employer] Advance Directives * Full Code (Latest Code [...] measures to stabilize the patient. Care Teams Retail Sales Advisor Relationship Specialty Start Date End Date Lianne Stack MD [address] [place], [place] [id number] PCP - General Family Medicine 01/13/23 Ryan Figueroa MD [address] [place] [address] Consulting Physician Pulmonary Disease 01/29/23 Gene Russell MD [address] [place] [address] Consulting Physician Neurology 01/28/24
--- OUTSIDE RECORDS SUMMARY | 2024-12-07 15:35 | XMS_ITS | Clinical Summary ---
Author Organization [facility] Address [address] [place] [address] Care Team Providers Care Critical Care Specialist Name Role Phone Lianne Stack MD Primary Care Provider [phone] Source Comments [facility],non-owned Affiliates and Associated Physician Practices is amultiple site organization consisting of ambulatory clinics and hospital sitesin [place], [place], [place] and [place]. This disclosure is being madepursuant to the Care Everywhere program and may not contain all information available regarding this patient. Last updated 18.[facility] Allergies Active Allergy Reactions Criticality Noted Date [...] naloxone HCl (Narcan) 4 MG/0.1ML nasal spray Nemaha 1 (one) spray into the nose as [...] mouth daily before breakfast Active nystatin (Mycostatin) 321084 UNIT/GM creamIndications :Cutaneous Candidiasis Apply to affected [...] 02/15/2020 Assessment & Plan (10/10/2020 4:34 PM FIELD HAND): - BSA < 5% - Encouraged to [...] dorsum. Will call with culture results - [facility]ard skin care reviewed - Referral to Rheumatology [...] (obstructive sleep apnea) 02/10/2018 Overview (02/10/2018): Overview: ([facility] - repeated - at time patient on [...] 10/10/2020 Assessment & Plan (10/10/2020 4:35 PM FIELD HAND): - Cont Hibaclens daily Dizziness 08/29/2019 10/18/2024 [...] Description 10/18/2024 11:40 AM CDT Office Visit [facility] - Rheumatology [address] [place] [address], [address] [place] [address] Logan Mancilla DO Primary fibromyalgia [...] on file Legal Sex Female 6:25 AM FIELD HAND Gender Identity Not on file Sexual Orientation [...] Oxygen Concentration 35% 09/07/2019 1 2:25 AM FIELD HAND Weight 106.6 kg (235 lb) 10/18/2024 11:21 AM CDT Height 170.2 cm (5' 7 ) 07/06/2024 12:54 PM FIELD HAND Body Mass Index 36.81 07/06/2024 12:54 PM FIELD HAND Plan of Treatment Upcoming Encounters Date Type Department Care Team (Late st Contact Info) Description 01/17/2025 11:20 AM CDT Office Visit [facility] - Rheumatology [address], [address] [place] [address] Logan Mancilla DO [address] [place] [address] Health Maintenance Due Date Last [...] COMPREHENSIVE METABOLIC PANEL Routine 07/13/2022 2:07 PM FIELD HAND Arthralgia, unspecified joint MAMMO BILAT SCREENING Routine 03/18/2020 1:16 PM CDT Encounter for screening mammogram for breast cancer HIV-1 HIV-2 ANTIGEN/ANTIBODY STAT 08/28/2019 4:47 PM FIELD HAND HEPATITIS C ANTIBODY Routine 06/08/2019 1:05 PM FIELD HAND Psoriasis Arthralgia, unspecified joint from Last 3 Months or Most Recently Relevant to Health Maintenance Results * (ABNORMAL) COMPREHENSIVE METABOLIC PANEL (07/13/2022 2:07 PM FIELD HAND) BUN 17 7 - 26 mg/dL 07/13/2022 2:55 PM [facility] Creatinine 1.03(H) 0.56 - 0.96 mg/dL 07/13/2022 2:55 PM [facility] Sodium 137 136 - 145 mmol/L 07/13/2022 2:55 PM [facility] Potassium 4.2 3.5 - 4.5 mmol/L 07/13/2022 2:55 PM [facility] Chloride 104 98 - 107 mmol/L 07/13/2022 2:55 PM [facility] CO2 28 22 - 29 mmol/L 07/13/2022 2:55 PM [facility] Glucose 88 70 - 115 mg/dL 07/13/2022 2:55 PM [facility] Calcium 9.3 8.4 - 10.2 mg/dL 07/13/2022 2:55 PM [facility] Protein Total 7.0 6.0 - 8.3 g/dL 07/13/2022 2:55 PM [facility] Albumin 3.4 3.4 - 5.0 g/dL 07/13/2022 2:55 PM [facility] Bilirubin Total 0.3 0.2 - 1.2 mg/dL 07/13/2022 2:55 PM [facility] Alkaline Phosphatase 161(H) 40 - 150 U/L 07/13/2022 2:55 PM [facility] ALT 45 5 - 55 U/L 07/13/2022 2:55 PM [facility] AST 31 5 - 34 U/L 07/13/2022 2:55 PM [facility] Anion Gap 9 8 - 18 07/13/2022 2:55 PM [facility] BUN/Creatinine Ratio 17 7 - 23 07/13/2022 2:55 PM [facility] Osmolality Calculated 285 270 - 300 mOsm/kg 07/13/2022 2:55 PM [facility] Albumin/Globulin Ratio 0.9(L) 1.1 - 2.3 07/13/2022 2:55 PM [facility] eGFR by CKD-EPI 62(L) >=90 mL/min/1.7 3 m2 07/13/2022 2:55 PM [facility] Blood BLOOD SPECIMEN / Unknown Lab Venipuncture / Unknown 07/13/2022 2:07 PM FIELD HAND 07/13/2022 2:26 PM [facility] Tae Bassett MD LAB - CHEMISTRY ORDERABLES Final Result [facility] [address] [place] [address], [facility] [phone] * Screening mammogram-[facility] (03/18/2020 1:16 PM CDT) Anatomical Region Laterality Modality Breast Bilateral Mammography 03/19/2020 8:39 AM CDT Impressions 03/19/2020 9:19 AM CDT IMPRESSION: No mammographic evidence of malignancy. ASSESSMENT: BI-RADS Category 1: Negative mammogram. RECOMMENDATION: Bilateral screening mammogram in one year. Dictated by Barbara Beck MD (professor of radiology). I, Dr. HADLEY POWELL M.D. have personally reviewed and interpreted this examination/study. This report was electronically signed by HADLEY POWELL M.D. on 03/19/2020 9:19 AM . Narrative 03/19/2020 9:19 AM CDT SCREENING MAMMOGRAM DATE: 03/18/2020. COMPARISON: 09/25/2014 and priors dating back to 10/22/2009 performed at [facility]. HISTORY: Screening mammogram. TECHNIQUE: Images were performed [...] * HIV-1 HIV-2 ANTIGEN/ANTIBODY (08/28/2019 4:47 PM FIELD HAND) Pathologist [facility] HIV Antigen/Antibod y 1 & 2 Non-reacti ve Non-react tommy 08/28/2019 5:38 PM FIELD HAND [facility] Comment: Neither HIV-1 p24 Antigen nor HIV-1/HIV-2 Antibodies are detected. Blood BLOOD SPECIMEN / Unknown Venipuncture / Unknown 08/28/2019 4:47 PM FIELD HAND 08/28/2019 4:52 PM FIELD HAND Makayla Zaldivar MD LAB - HEMATOLOGY ORDERABLES Shelby luu Result [address] [phone] * HEPATITIS C ANTIBODY (06/08/2019 1:05 PM FIELD HAND) Pathologist [facility] Hepatitis C Antibody Non-react tommy Non-reac tive 06/08/2019 2:14 PM FIELD HAND [facility] Comment: Hepatitis C Antibody screen [...] Lab Venipuncture / Unknown 06/08/2019 1:05 PM FIELD HAND 06/08/2019 1:17 PM FIELD HAND us Michelle Agee MD LAB - CHEMISTRY ORDERABLES F inal Result [address] [phone] from Last 3 Months or Most Recently Relevant to Health Maintenance Insurance DR MCMULLEN [address] [place] [phone] [facility] [address] [place] [address] [facility] [address] [place] [address] [facility] Advance Directives * Full Code (Latest Code Status on File) Date Activated Date Inactivated Comments 09/05/2019 9:30 PM 09/07/2019 10:27 PM * Full Code Date Activated Date Inactivated Comments 08/29/2019 1:36 AM 08/29/2019 4:13 PM Care Teams Critical Care Specialist Relationship Specialty Start Date End Date Lianne Stack MD [address] [place] [address] PCP - General Family Medicine 07/06/24
--- OUTSIDE RECORDS SUMMARY | 2024-12-07 15:35 | XMS_ITS | Continuity of Care Document ---
Author Organization [facility] Address [address] [place] [address] [address] [place] [address] Phone Care Team Providers Care Adjunct Professor Of [place] History Name Role Phone Anitha Zaldivar Unavailable Unavailable Advance Directives Directive Yes / No Effective Date File Name No Information Encounters Encounter Description Practice Location Reason(s) For Visit Diagnoses Date Provider Providers Copied on Encounter [facility], [id number] [place] [address] [address], [place], [place], [id number], [place] tel:[phone] [facility] No Information Sep-0 [address]. [address] , [address], [place], [address], [place]. tel:[phone] Family History Family Member Type Diagnosis Age At Onset No Information Payers Payer name Insurance type Covered green party ID Authoriza tion(s) No Information Social [...]
--- OUTSIDE RECORDS SUMMARY | 2024-12-07 15:37 | XMS_ITS | Continuity of Care Document ---
Author Organization [facility] Address [address] [place] [address] [address] [place] [address] Phone Care Team Providers Care Service Consultant Name Role Phone Anitha Zaldivar Unavailable Unavailable Advance Directives Directive Yes / No Effective Date File Name No Information Encounters Encounter Description Practice Location Reason(s) For Visit Diagnoses Date Provider Providers Copied on Encounter Located within [facility], [id number] [place] [address] [address], [place], [place], [id number], [place] tel:[phone] [facility] No Information Sep-0 [address]. [address] , [address], [place], [address], [place]. tel:[phone] Family History Family Member Type Diagnosis Age [...]
--- NOTE | 2024-12-07 16:13 | ED.SKABFB ---
HPI - Skin/Abscess/Foreign Bdy General Chief complaint: Skin/Abscess/Foreign Body Stated complaint: Skin Sore Time Seen by Provider: 12/07/24 16:17 Source: patient, RN notes reviewed and old records reviewed Mode of arrival: ambulatory Limitations: no limitations Related Data Home Medications ?Medication ?Instructions ?Recorded ?Confirmed ?Last Taken ?Type sertraline 100 mg tablet 100 mg PO DAILY 11/29/22 03/10/23 11/28/22 14:00 History albuterol sulfate 90 mcg/actuation 2 inh inhalation Q4-6H PRN 02/26/23 03/10/23 Unknown History aerosol inhaler (ProAir HFA) Shortness Of Breath aripiprazole 10 mg tablet 10 mg PO HS 02/26/23 03/10/23 Unknown History aripiprazole 15 mg tablet mg 12/05/24 Unknown History atorvastatin 40 mg tablet mg 12/05/24 Unknown History clonidine HCl 0.1 mg tablet mg 12/05/24 Unknown History deutetrabenazine 9 mg tablet mg PO 12/05/24 Unknown History (Austedo) duloxetine 30 mg capsule,delayed mg PO 12/05/24 Unknown History release duloxetine 60 mg capsule,delayed mg PO 12/05/24 Unknown History release hydroxyzine pamoate 50 mg capsule mg 12/05/24 Unknown History levothyroxine 150 mcg tablet mcg 12/05/24 Unknown History nystatin 100,000 unit/gram topical topical 12/05/24 Unknown History cream nystatin 100,000 unit/gram topical topical 12/05/24 Unknown History powder (Klayesta) pregabalin 75 mg capsule mg 12/05/24 Unknown History ropinirole 1 mg tablet mg 12/05/24 Unknown History tamsulosin 0.4 mg capsule mg PO 12/05/24 Unknown History Allergies Allergy/AdvReac Type Severity Reaction Status Date / Time sulfamethoxazole Allergy Mild JOINT Verified 12/07/24 15:51 SWELLING clarithromycin Allergy Unknown Swelling Verified 12/07/24 15:51 gabapentin Allergy Unknown Joint pain Verified 12/07/24 15:51 Influenza Virus Vaccines Allergy Unknown Unknown Verified 12/07/24 15:51 trimethoprim Allergy Unknown JOINT Verified 12/07/24 15:51 SWELLING codeine AdvReac Unknown NAUSEA - Verified 12/07/24 15:51 [facility] Past Medical History Medical History Erosive gastritis Adenomatous colon polyp Nausea & vomiting GERD (gastroesophageal reflux disease) Chronic back pain Pancreatitis Diverticulosis Tracheostomy dependence COPD (chronic obstructive pulmonary disease) Peripheral neuropathy Seizures TIA (transient ischemic attack) Pneumonia Anxiety and depression Hypertension Hypothyroidism JULIAN (obstructive sleep apnea) Pulmonary emphysema Pure hypercholesterolemia Failure to thrive in adult Chemical dependency Surgical History Surgical History Hx of tonsillectomy Secondary to sepsis/ARDS Total knee replacement status Hx of cholecystectomy H/O neck surgery C6-7 fusion Family History Family History Sibling Patient's sister is in good health Patient's brother is in good health Depression Mother Family history of malignant neoplasm of breast in first degree relative, Onset Age: 26 Patient's mother is Father Patient's father is in good health Other Family history of alcoholism Family history of lung disease Family history of malignant neoplasm of male breast Family history of migraine headaches Family history of obesity Hypertension Social History Social History Social History: The patient continues to smoke 1/2 a pack of cigarettes per day. She lives home alone. She had 1 daughter who is now and she has two other children that her still living. She is currently seperated from her . She is disabled. Code status full code Smoking packs per day: 0.5 Smoking cigarettes per day: 10.0 Years smoked: 45 Smoking pack-years: 22.50 Smoking status: Current every day smoker Tobacco type: cigarettes Second hand tobacco smoke exposure: No Smoking end date: 08/02/15 Alcohol intake: former Alcohol use details: recovering alcoholic 2000 Substance use: former Substance use type: marijuana and methamphetamine Lack of Transportation: YES Lack of Food: Sometimes True Current Housing: I Have Housing Concerned About Future Housing: No Difficulty Paying Gas/Electric Bills: No Difficulty Paying for Meds: No Currently Unemployed: No Education: High School Diploma/GED Difficulty w/ Childcare or Family Care: No Living arrangements: alone Gender identity (if verbalized by the patient): Female Spiritual care concerns: No Course Vital Signs Vital signs: Vital Signs Temperature 36.6 C 12/07/24 15:34 Pulse Rate 106 H 12/07/24 15:34 Respiratory Rate 20 12/07/24 15:34 Blood Pressure 131/101 H 12/07/24 15:34 Pulse Oximetry 96 12/07/24 15:34 Oxygen Delivery Room Air 12/07/24 15:34 Temperature 36.6 C 12/07/24 15:34 Pulse Rate 106 H 12/07/24 15:34 Respiratory Rate 20 12/07/24 15:34 Blood Pressure 131/101 H 12/07/24 15:34 Pulse Oximetry 96 12/07/24 15:34 Oxygen Delivery Room Air 12/07/24 15:34 Discharge Plan Discharge Patient Language: Somali Prescriptions: No Action atorvastatin 40 mg tablet clonidine HCl 0.1 mg tablet ropinirole 1 mg tablet hydroxyzine pamoate 50 mg capsule tamsulosin 0.4 mg capsule PO nystatin 100,000 unit/gram cream TOPICAL levothyroxine 150 mcg tablet nystatin [Klayesta] 100,000 unit/gram powder TOPICAL aripiprazole 15 mg tablet duloxetine 30 mg capsule,delayed release(DR/EC) PO duloxetine 60 mg capsule,delayed release(DR/EC) PO pregabalin 75 mg capsule Austedo 9 mg tablet PO nystatin 100,000 unit/gram powder 1 applic topical BID Qty: 180 2RF Rx Instructions: Apply to bilateral inguinal(groin) region mupirocin [Centany] 2 % ointment 1 applic topical TID Qty: 50 1RF Rx Instructions: Apply to face and arms aripiprazole 10 mg tablet 10 mg PO HS albuterol sulfate [ProAir HFA] 90 mcg/actuation HFA aerosol inhaler 2 inh inhalation Q4-6H PRN (Reason: Shortness Of Breath) sertraline 100 mg tablet 100 mg PO DAILY amlodipine 5 mg tablet 5 mg PO DAILY Qty: 30 5RF cyclobenzaprine 10 mg tablet 10 mg PO HS PRN (Reason: muscle spasm) Qty: 20 0RF Rx Instructions: must last 30 days levothyroxine 125 mcg tablet 125 mcg PO DAILY Qty: 90 0RF pantoprazole 40 mg tablet,delayed release (DR/EC) See Rx Instructions .ROUTE .COMPLEX Qty: 180 2RF Dose Instruction: TAKE 1 TABLET BY MOUTH EVERY 12 HOURS Rx Instructions: TAKE 1 TABLET BY MOUTH EVERY 12 HOURS Follow-up/Referrals: Sreekanth,Lianne Byrne MD [Primary Care Provider] -
--- NOTE | 2024-12-07 16:18 | ED_ITS ---
HPI - Skin/Abscess/Foreign Bdy General Chief complaint: Skin/Abscess/Foreign Body Stated complaint: Skin Sore Time Seen by Provider: 12/07/24 16:17 Source: patient, RN notes reviewed and old records reviewed Mode of arrival: ambulatory Limitations: no limitations History of Present Illness HPI narrative: 64 year old female presents to [facility] care with complaints of red kate face around mouth with some crusty yellow appearance, dried area to left forehead some lesion to left forearm and some red areas to her groin for the past week. patient reports that she was ssen on the and given some Nystatin and Mu piricin ointment not seeing any improvement in rash. Patient denies any known fevers chills or sweats. Patient does report past history of MRSA. MD complaint: rash Onset (ago): week(s) (1) Treatments prior to arrival: other (nystatin and mupiricin) Related Data Home Medications ?Medication ?Instructions ?Recorded ?Confirmed ?Last Taken ?Type sertraline 100 mg tablet 100 mg PO DAILY 11/29/22 03/10/23 11/28/22 14:00 History albuterol sulfate 90 mcg/actuation 2 inh inhalation Q4-6H PRN 02/26/23 03/10/23 Unknown History aerosol inhaler (ProAir HFA) Shortness Of Breath aripiprazole 10 mg tablet 10 mg PO HS 02/26/23 03/10/23 Unknown History aripiprazole 15 mg tablet mg 12/05/24 Unknown History atorvastatin 40 mg tablet mg 12/05/24 Unknown History clonidine HCl 0.1 mg tablet mg 12/05/24 Unknown History deutetrabenazine 9 mg tablet mg PO 12/05/24 Unknown History (Austedo) duloxetine 30 mg capsule,delayed mg PO 12/05/24 Unknown History release duloxetine 60 mg capsule,delayed mg PO 12/05/24 Unknown History release hydroxyzine pamoate 50 mg capsule mg 12/05/24 Unknown History levothyroxine 150 mcg tablet mcg 12/05/24 Unknown History nystatin 100,000 unit/gram topical topical 12/05/24 Unknown History cream nystatin 100,000 unit/gram topical topical 12/05/24 Unknown History powder (Klayesta) pregabalin 75 mg capsule mg 12/05/24 Unknown History ropinirole 1 mg tablet mg 12/05/24 Unknown History tamsulosin 0.4 mg capsule mg PO 12/05/24 Unknown History Allergies Allergy/AdvReac Type Severity Reaction Status Date / Time sulfamethoxazole Allergy Mild JOINT Verified 12/07/24 15:51 SWELLING clarithromycin Allergy Unknown Swelling Verified 12/07/24 15:51 gabapentin Allergy Unknown Joint pain Verified 12/07/24 15:51 Influenza Virus Vaccines Allergy Unknown Unknown Verified 12/07/24 15:51 trimethoprim Allergy Unknown JOINT Verified 12/07/24 15:51 SWELLING codeine AdvReac Unknown NAUSEA - Verified 12/07/24 15:51 CAN TAKE LORTAB Review of Systems Review of Systems: CONSTITUTIONAL: Denies fever, chills, or sweats. CARDIOVASCULAR: Denies chest pain, palpitations, or edema. RESPIRATORY: Denies cough or dyspnea. SKIN: Reports scaly lesions around mouth with some yellowish crusting, dried lesion to right forehead, some sores to left forearm and some to groin area. no surrounding cellulitis MUSCULOSKELETAL: Denies joint pain or myalgia. NEUROLOGIC: Denies headache, numbness, or weakness. All systems reviewed & are unremarkable except as noted in HPI and below PMFSH Past Medical History Medical History Erosive gastritis Adenomatous colon polyp Nausea & vomiting GERD (gastroesophageal reflux disease) Chronic back pain Pancreatitis Diverticulosis Tracheostomy dependence COPD (chronic obstructive pulmonary disease) Peripheral neuropathy Seizures TIA (transient ischemic attack) Pneumonia Anxiety and depression Hypertension Hypothyroidism JULIAN (obstructive sleep apnea) Pulmonary emphysema Pure hypercholesterolemia Failure to thrive in adult Chemical dependency Surgical History Surgical History Hx of tonsillectomy Secondary to sepsis/ARDS Total knee replacement status Hx of cholecystectomy H/O neck surgery C6-7 fusion Family History Family History Sibling Patient's sister is in good health Patient's brother is in good health Depression Mother Family history of malignant neoplasm of breast in first degree relative, Onset Age: 26 Patient's mother is Father Patient's father is in good health Other Family history of alcoholism Family history of lung disease Family history of malignant neoplasm of male breast Family history of migraine headaches Family history of obesity Hypertension Social History Social History Social History: The patient continues to smoke 1/2 a pack of cigarettes per day. She lives home alone. She had 1 daughter who is now and she has two other children that her still living. She is currently seperated from her . She is disabled. Code status full code Smoking packs per day: 0.5 Smoking cigarettes per day: 10.0 Years smoked: 45 Smoking pack-years: 22.50 Smoking status: Current every day smoker Tobacco type: cigarettes Second hand tobacco smoke exposure: No Smoking end date: 08/02/15 Alcohol intake: former Alcohol use details: recovering alcoholic 1999 Substance use: former Substance use type: marijuana and methamphetamine Lack of Transportation: YES Lack of Food: Sometimes True Current Housing: I Have Housing Concerned About Future Housing: No Difficulty Paying Gas/Electric Bills: No Difficulty Paying for Meds: No Currently Unemployed: No Education: High School Diploma/GED Difficulty w/ Childcare or Family Care: No Living arrangements: alone Gender identity (if verbalized by the patient): Female Spiritual care concerns: No Comments At time of signature, agree with nursing past medical, surgical, social and family history. There is no relevant family history pertinent to the presenting complaint Exam Narrative: GENERAL:chronic ill appearing-, well-nourished, and in no acute distress. HEAD: Normocephalic, atraumatic. EYES: PERRLA, conjunctivae clear, and EOMI. ENT: Mucous membranes moist. Oropharynx without edema, erythema or lesions. NECK: Supple. No lymphadenopathy CHEST: decreased breath sounds on auscultation. No respiratory distress.no acute cough, SAO2 96% on room air HEART: Regular rate and rhythm. SKIN: Warm, dry.? Patches of red lesions around mouth with yellow crusting, small area of dired scaly tissue righ foreheaad, some red lesions on lef arm and some in groin no surrounding cellulitis, has been using Nystatin powder and Mupiricin NEURO:? Alert and oriented x3. PSYCH: Normal mood and affect Course Course Emergency Course: Patient is aware of diagnosis, understands and agrees to treatment plan.? Anticipatory guidance given.? Patient agrees to follow-up as directed and is aware of reasons to seek care at the emergency department. Portions of this record may have been created with voice recognition software Level of Care: Express Care Visit Vital Signs Vital signs: Vital Signs Temperature 36.6 C 12/07/24 15:34 Pulse Rate 106 H 12/07/24 15:34 Respiratory Rate 20 12/07/24 15:34 Blood Pressure 131/101 H 12/07/24 15:34 Pulse Oximetry 96 12/07/24 15:34 Oxygen Delivery Room Air 12/07/24 15:34 Temperature 36.6 C 12/07/24 15:34 Pulse Rate 106 H 12/07/24 15:34 Respiratory Rate 20 12/07/24 15:34 Blood Pressure 131/101 H 12/07/24 15:34 Pulse Oximetry 96 12/07/24 15:34 Oxygen Delivery Room Air 12/07/24 15:34 Reviewed MDM - Skin/Abscess/Foreign Bdy MDM Narrative Medical decision making narrative: Does not appear at this time to be erythema multiforme, bullous, SJS, TEN; no evidence at this time to suggest RMSF, endocarditis or Lyme disease; patient looks well, nontoxic and is tolerating oral intake; no neurologic signs or symptoms; no headache, photophobia or neck pain; afebrile; appropriate for initial outpatient treatment; discussed the importance of follow-up, patient agrees; question, viral exanthema, contact dermatitis, allergic dermatitis, eczema, urticaria.. No soft palate or uvula edema, no tongue, lip edema or other mucosal involvement, no respiratory compromise, no stridor, no wheezing, no wheezing, no history of syncope, no hypotension, no nausea, vomiting, or diarrhea.? Instructed patient to go to nearest ER immediately for any worsening symptoms including but not limited to: fever, spreading rash, pain, sore throat, headache, dizziness, chest pain, trouble breathing, or any symptoms concerning to the patient. Differential Diagnosis Differential diagnosis: Likely abscess of skin or subcutaneous tissue, allergic reaction to drug, cellulitis, impetigo and contact dermatitis Medical Records Attestation: I reviewed the patient's medical records. Critical Care Time Critical Care Time Critical Care Time: No Discharge Plan Discharge Clinical Impression: Impetigo Patient Disposition: Home Condition: Stable Instructions: Antibiotic Form, Impetigo (ED) Additional Instructions: cleanse sore areas on face and on lips with liquid Dial soap or Hibiclens and apply mupirocin ointment continue Nystatin to groin area watch for increasing infection--redness, swelling, drainage Tylenol or ibuprofen for any fever pain follow up with PCP in 7-10 days for a wound check recheck if develop fever, chills, increasing symptom Go to the ER if your symptoms become worse of if ANY new symptoms develop cephalexin 500 mg po BID for 7 days If your symptoms persist, change or worsen significantly before you can contact your personal physician then please, without delay, go to the emergency department for further evaluation. Follow-up with PCP in 7-10 days or sooner if needed Follow up with PCP soon in regards to your blood pressure which is elevated above threshold for referral. Blood pressure above 120/80 may indicate pre- hypertension.131/101 Patient Language: Botswanan Prescriptions: New cephalexin 500 mg capsule 500 mg PO Q12H Qty: 14 0RF Rx Instructions: take all doses of oral antibiotic No Action atorvastatin 40 mg tablet clonidine HCl 0.1 mg tablet ropinirole 1 mg tablet hydroxyzine pamoate 50 mg capsule tamsulosin 0.4 mg capsule PO nystatin 100,000 unit/gram cream TOPICAL levothyroxine 150 mcg tablet nystatin [Klayesta] 100,000 unit/gram powder TOPICAL aripiprazole 15 mg tablet duloxetine 30 mg capsule,delayed release(DR/EC) PO duloxetine 60 mg capsule,delayed release(DR/EC) PO pregabalin 75 mg capsule Austedo 9 mg tablet PO nystatin 100,000 unit/gram powder 1 applic topical BID Qty: 180 2RF Rx Instructions: Apply to bilateral inguinal(groin) region mupirocin [Centany] 2 % ointment 1 applic topical TID Qty: 50 1RF Rx Instructions: Apply to face and arms aripiprazole 10 mg tablet 10 mg PO HS albuterol sulfate [ProAir HFA] 90 mcg/actuation HFA aerosol inhaler 2 inh inhalation Q4-6H PRN (Reason: Shortness Of Breath) sertraline 100 mg tablet 100 mg PO DAILY amlodipine 5 mg tablet 5 mg PO DAILY Qty: 30 5RF cyclobenzaprine 10 mg tablet 10 mg PO HS PRN (Reason: muscle spasm) Qty: 20 0RF Rx Instructions: must last 30 days levothyroxine 125 mcg tablet 125 mcg PO DAILY Qty: 90 0RF pantoprazole 40 mg tablet,delayed release (DR/EC) See Rx Instructions .ROUTE .COMPLEX Qty: 180 2RF Dose Instruction: TAKE 1 TABLET BY MOUTH EVERY 12 HOURS Rx Instructions: TAKE 1 TABLET BY MOUTH EVERY 12 HOURS Follow-up/Referrals: Sreekanth,Lianne Byrne MD [Primary Care Provider] - Time of Disposition: 16:23 Quality Precious Coma Scale Eyes: Open Verbal: Oriented and Alert Motor: Follows Commands Precious Coma Total Score: 15
== END 2024-12-07 16:33 | disposition home or self-care (01) ==
PROVIDERS: Emergency Provider Registered Nurse; PCP Family Medicine
DX: L01.00 Impetigo, unspecified (principal); K21.9 Gastro-esophageal reflux disease without esophagitis; J44.9 Chronic obstructive pulmonary disease, unspecified; G62.9 Polyneuropathy, unspecified; I10 Essential (primary) hypertension; E03.9 Hypothyroidism, unspecified; E78.00 Pure hypercholesterolemia, unspecified; F41.9 Anxiety disorder, unspecified; F32.A Depression, unspecified; Z93.0 Tracheostomy status; Z86.14 Personal history of Methicillin resistant Staphylococcus aureus infection; Z86.73 Personal history of transient ischemic attack (TIA), and cerebral infarction without residual deficits
CPT/HCPCS: 99213; G0463

== ENCOUNTER 2024-12-24 17:06 | Emergency (ER) | payer OTHER, SELFPAY ==
--- OUTSIDE RECORDS SUMMARY | 2024-12-24 17:08 | XMS_ITS ---
Author Organization [facility] Address [address] [place] [address] Care Team Providers Care Procurement Intern Name Role Phone Vicky Thurman Primary Care Provider REASON FOR VISIT follow up Social History Sex Assigned At : Social History Observation Description Sex Assigned At Female Encounters Encounter Location Date Provider Diagnosis [facility] [address] [place] [address] 12/06/2024 Vicky Thurman Plan Of Treatment No Information Progress Notes * David DANIELSOB:1960 (64 yo F)Acc No.[id number]:12/06/2024 UNLOCKED PROGRESS NOTE Patient: Sunita BARRAGAN Provider: EJLANI Nagel :1960 A ge:64 Y S ex:Female Date:12/06/2024 Address:[facility] [address], [facility] Subjective: * Chief Complaints: * 1 . Follow up. * Medical History: Objective: * Vitals: Assessment: Plan: * Treatment: * * Electronic signature of Víctor Thurman on 12/24/2024 at 05:08 PM CDT Sign off status: Pending * Provider: JELANI Nagel Date: 12/06/2024 Generated for Elder dejesus/Clarissa/Sejalitting on: 12/24/2024 05:08 PM CDT
--- OUTSIDE RECORDS SUMMARY | 2024-12-24 17:08 | XMS_ITS | Encounter Summary ---
Author Organization [facility] Address [address] [place] [address] Phone Care Team Providers Care Water Aerobics Instructor Name Role Phone Lianne Stack MD Primary Care Provider [phone] Ryan Figueroa MD Unavailable Gene Russell MD Unavailable [phone] Encounter Details Date Type Department Care Team (Late st Contact Info) Description 02/04/2024 Transcribe Orders [facility] [address] [place] [address] Logan Mancilla, DO [address] [address] Polymyalgia rheumatica syndrome (HCC) (Primary Dx) Social History Tobacco Use Types Packs/Day Years Used Date Smoking Tobacco: Every Day Cigarettes 1 25.4 Started: 1999 Alcohol Use Standard Drinks/Week Comments No 0 (1 standard drink = 0.6 oz pur e alcohol) [facility] Utilities Answer Date Recorded In the past 12 months has [employer], gas, oil, or water Bunkr threatened to shut off services in your home? Patient declined 12/15/2023 Social Connection and Isolation Panel [NHANES] A nswer Date Recorded In a typical week, how many times do you talk on the phone with family, friends, or neighbors? Patient declined 12/15/2023 How often do you get togethe r with friends or relatives? Patient declined 12/15/2023 How often do you attend hindu or confucianism serv ices? Patient declined 12/15/2023 Do you belong to any clubs o r organizations such as hindu groups, unions, fraternal or athletic groups, or [...] medical care, and heating? Patient declined 12/15/2023 [facility] - Occupational Stress Questionnaire Answer Date [...] place to sleep or slept in a half-way (including now)? 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 PHYSICIAN COVID - 19 06/03/2024 06/03/2024 06/03/2024 12:0 0 PM CDT COVID - 19 10/08/2024 10/08/2024 10/08/2024 9:00 PM CDT COVID - 19 10/23/2024 10/23/2024 10/23/2024 1:09 AM CDT documented as of this encounter Care Teams Water Aerobics Instructor Relationship Specialty Start Date End Date Lianne Stack MD [address] [place] [address] PCP - General Family Medicine 01/13/23 Ryan Figueroa MD [address] [place] [address] Consulting Physician Pulmonary Disease 01/29/23 Gene Russell MD [address] [place] [address] Consulting Physician Neurology 01/28/24 documented as of this encounter
--- OUTSIDE RECORDS SUMMARY | 2024-12-24 17:08 | XMS_ITS | Continuity of Care Document ---
Author Organization [facility] Address [address] [place] [address] [address] [place] [address] Phone Care Team Providers Care Bakery Deliverer Name Role Phone Anitha Zaldivar Unavailable Unavailable Advance Directives Directive Yes / No Effective Date File Name No Information Encounters Encounter Description Practice Location Reason(s) For Visit Diagnoses Date Provider Providers Copied on Encounter [facility], [id number] [place] [address] [address], [place], [place], [id number], [place] tel:[phone] [facility] No Information Sep-0 [address] , [address], [place], [address], [place]. tel:[phone] Family History Family Member Type Diagnosis Age At Onset No Information Payers Payer name Insurance type Covered democrat ID Authoriza tion(s) No Information Social History [...]
--- OUTSIDE RECORDS SUMMARY | 2024-12-24 17:08 | XMS_ITS | Encounter Summary ---
Author Organization [facility] Address [address] [place] [address] Phone Care Team Providers Care Automatic Oven Operator Name Role Phone Lianne Stack MD Primary Care Provider Ryan Figueroa MD Unavailable Gene Russell MD Unavailable Reason for Visit * Reason Comments Medication Refill Encounter Details Date Type Department Care Team (Late st Contact Info) Description 09/28/2023 Refill [facility] - Pulmonology & [facility] Medicine [facility] [address] [place] [address] Ryan Figueroa MD [address] [place] [address] Medication Refill Social History Tobacco Use Types Packs/Day Years Used Date Smoking Tobacco: Every Day Cigarettes 1 25.4 Started: 2000 Alcohol Use Standard Drinks/Week Comments No [...] PM CST Medication(s) refilled and signed per [facility] Chronic Medication Refill Standing Order for Pediatricand [...] Dept 08/05/23 Office Visit Ryan Figueroa MD [facility] [address] 05/04/23 Office Visit Ryan Figueroa MD [facility] [address] 01/29/23 Office Visit Ryan Figueroa MD [facility] [place] [facility] [address] Showing recent visits within past 270 days and meeting all other requirements Future Appointments No visits were found meeting these conditions. Showing future appointments within next 90 days and meeting all other requirements Passed - Blood pressure on record in past 12 months Clinician-entered: BP Readings from Last 3 Encounters: 08/27/23 (!) 134/95 08/05/23 120/80 05/04/23 138/78 Patient-entered: No data recorded TY DIRECTOR documented in this encounter Plan of Treatment Not on file documented as of this encounter Visit Diagnoses Not on filedocumented in this encounter Additional Health Concerns Infection Onset Date Last Indicated Resolved Time COVID - 19 02/25/2024 02/25/2024 02/25/2024 4:10 AM CDT 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 02/25/2024 06/06/2024 9:53 AM EQUITY DIRECTOR COVID - 19 06/03/2024 06/03/2024 06/03/2024 12:0 0 PM CDT COVID - 19 10/08/2024 10/08/2024 10/08/2024 9:00 PM CDT COVID - 19 10/23/2024 10/23/2024 10/23/2024 1:09 AM CDT documented as of this encounter Care Teams Automatic Oven Operator Relationship Specialty Start Date End Date Lianne Stack MD [address] [place] [address] PCP - General Family Medicine 01/13/23 Ryan Figueroa MD [address] [place] [address] Consulting Physician Pulmonary Disease 01/29/23 Gene Russell MD [address] [place] [address] Consulting Physician Neurology 01/28/24 documented as of this encounter
--- OUTSIDE RECORDS SUMMARY | 2024-12-24 17:08 | XMS_ITS | Encounter Summary ---
Author Organization [facility] Address [address] [place] [address] Phone Care Team Providers Care Fusing Machine Feeder Name Role Phone Lianne Stack MD Primary Care Provider [phone] Ryan Figueroa MD Unavailable Gene Russell MD Unavailable [phone] Encounter Details Date Type Department Care Team (Latest Contact Info) Description 10/24/2024 Results Follow-Up [facility] - Gastroenterology - [place] [address] [place] [address] Cecilia Mai, RN [place] Pathology Surgical Social History Tobacco Use Types Packs/Day Years Used Date Smoking Tobacco: Former Cigarettes 1 25.4 S tarted: 2000 Alcohol Use Standard Drinks/Week Comments No 0 (1 standard drink = 0.6 oz pur e alcohol) [facility] Utilities Answer Date Recorded In the past 12 months has th [employer], gas, oil, or water company threatened [...] declined 10/23/2024 How often do you attend temple or gnosticist serv ices? Never 10/23/2024 Do you belong to any clubs o r organizations such as temple groups, unions, fraternal or athletic groups, or [...] and heating? Not hard at all 10/23/2024 [facility] - Occupational Stress Questionnaire Answer [...] place to sleep or slept in a nursing home (including now)? Patient declined 12/15/2023 Housing Stability [...] any time in the past 12 [facility], were you homeless or living in a nursing home (including now)? No 10/23/2024 Sexually Active Control Partners Comments Not Currently Comments No Sex and Gender Information Value Date Recorded Sex Assigned at Not on file Legal Sex Female 9:25 PM CDT Gender Identity Not on file Sexual Orientation Not on file documented as of this encounter Plan of Treatment Not on file documented as of this encounter Visit Diagnoses Not on filedocumented in this encounter Care Teams Fusing Machine Feeder Relationship Specialty Start Date End Date Lianne Stack MD [address] [place] [address] PCP - General Family Medicine 01/13/23 Ryan Figueroa MD [address] [place] [address] Consulting Physician Pulmonary Disease 01/29/23 Gene Russell MD [address] [place] [address] Consulting Physician Neurology 01/28/24 documented as of this encounter
--- OUTSIDE RECORDS SUMMARY | 2024-12-24 17:08 | XMS_ITS | Clinical Summary ---
Author Organization [facility] Address [address] [place] [address] Care Team Providers Care Geotechnical Department Manager Name Role Phone Lianne Stack MD Primary Care Provider [phone] Ryan Figueroa MD Unavailable Gene Russell MD Unavailable [phone] Allergies Active Allergy Reactions Criticality Noted Date [...] Tablet Take 40 mg by mouth daily. 3 Active clobetasol (TEMOVATE) 0.05 % Cream Apply 2 times daily as needed for Other. Elbows and knees Active irbesartan (AVAPRO) 150 MG Tablet Take 1 Tablet by mouth daily. 4 Active pantoprazole (Protonix) 40 MG Pack Take 40 mg by mouth daily. Active OXYGEN CONCENTRATOR 4 Units/L by Does not apply route continuous. 4L via nasal canula Active Umeclidinium-Srini anterol (ANORO ELLIPTA) 62.5-25 MCG/ACT AEROSOL POWDER, BREATH ACTIVATEDIndicat ions:Other emphysema (HCC) take 1 Puff by inhalation daily. 30 Each 3 4 Active DULoxetine (CYMBALTA) [address] Particles Take 60 mg by mouth daily. 4 Active levothyroxine (SYNTHROID) 125 MCG Tablet Take 150 mcg by mouth every morning (before breakfast). Active hydrOXYzine (VISTARIL) 50 MG Capsule Take 1 Capsule by mouth 3 times daily as needed for Anxiety. Active naloxone HCl (Narcan) 4 MG/0.1ML Liquid 1 [place] by Nasal route as needed for Opioid Reversal. Administer in one nostril for symptoms of overdose (severe sleepiness, breathing problems, not responsive). Call 911. May repeat 1 spray in alternate nostril in 2-3 minutes if needed. 2 Each 4 Active cloNIDine (CATAPRES) 0.1 MG Tablet Take 0.1 mg by mouth daily as needed. Active Deutetrabenazine 9 MG Tablet Take 1 Tablet by mouth 2 times daily. Active famotidine (PEPCID) 20 MG Tablet Take 1 Tablet by mouth 2 times daily. 90 Tablet 5 Active oxyCODONE-acetam inophen (PERCOCET) 5-325 MG TabletIndication s:Fibromyalgia,P olymyalgia rheumatica (HCC) Take 1 Tablet by mouth every 6 hours as needed for Moderate or more severe pain. 24 Tablet 5 Active pregabalin (LYRICA) 75 MG CapsuleIndicatio ns:Fibromyalgia, Polymyalgia rheumatica (HCC) Take 1 Capsule by mouth 2 times daily. 60 Capsule 5 Active rOPINIRole (REQUIP) 1 MG TabletIndication s:Restless legs syndrome (RLS) TAKE 1 TABLET BY MOUTH EVERY NIGHT 90 Tablet 5 Active amLODIPine (NORVASC) 5 MG Tablet Take 1 Tablet by mouth daily for 30 days. 30 Tablet 5 11/26/19 25 Active Problems Problem Noted Date Diagnosed Date [...] Department Care Team Description 11/10/2024 Refill [facility] - Pulmonology & Sleep Medicine [facility] [address] [place] [address] Ryan Figueroa MD Medication Refill 11/01/2024 Telephone [facility] [address] [place] [address] Prerna Pereira Patient Outreach 11/01/2024 Telephone [facility] [address] [place] [address] Savi Irving Patient Outreach 10/26/2024 6:49 PM CDT - 10/26/2024 11:28 PM CDT Emergency [facility] Emergency Department Emergency [address] [place] [address] Mathew Bower PAC Chronic respiratory failure Discharge Disposition: Discharged to home or Selfcare 10/26/2024 Travel 10/24/2024 Results Follow-Up [facility] - Gastroenterology - Pep [address] [place] [address] Cecilia Mai RN Pathology Surgical 10/22/2024 11:31 PM CDT - 10/26/2024 5:07 PM CDT Hospital Encounter [facility] Medical/Surgical Intensive Care [address] [place] [address] Jim Garrido MD Krishna, Khoa Heath MD [facility], Jina Gonzáles MD Hypoxia Discharge Disposition: Discharged/Transfe rred to an ICF 10/22/2024 Travel 10/16/2024 Documentation Only [facility] Rehab at [facility] [address] [place] [address] Cecile Munoz, PT Chronic bilateral low back pain without sciatica (Primary Dx); Decreased functional mobility and endurance 10/11/2024 10:35 AM CDT Ancillary Procedure [facility] Gi Lab Main [address] [place] [address] Manjinder Herrera MD 10/11/2024 10:30 AM CDT Ancillary Procedure [facility] Gi Lab Main [address] [place] [address] Manjinder Herrera MD 10/11/2024 10:18 AM CDT [facility] Periop [address] [place] [address] Clay Wyatt APRN, CRNA 10/11/2024 10:00 AM CDT - 10/11/2024 10:30 AM CDT [facility] Per[facility] [address] [place] [address] Manjinder Herrera MD EGD WITH DILATION- DUODENUM BIOPSY RULE OUT H. PYLORI, ANTRAL BIOPSY RULE OUT H. PYLORI, 7 CM HIATAL HERNIA 10/08/2024 7:52 PM CDT - 10/11/2024 6:49 PM CDT Hospital Encounter [facility] Med Surg 2 South 1 [facility] [place] [phone] Jim Garrido MD Dianati, Behfar, MD COPD exacerbation (HCC) Discharge Disposition: Discharged to home or Selfcare 10/08/2024 Travel 09/29/2024 Telephone [facility] Rehab at [facility] [address] [place] [address] Shane Rehman, BL[employer]ER No Show (2nd no show (unable to contact pt)) from Last 3 Months Immunizations Immunization Administration Dates Next Due Covid-19, Mrna, Lnp-s, Pf, 30 Mcg/0.3 Ml Dose (P anand) 04/09/2021 Family History Medical History Relation Name Comments Emphysema Father Hypertension Father Breast Cancer Mother Cancer Mother Relation Name Status Comments Father Alive Mother Social History Tobacco Use Types Packs/Day Years Used Date Smoking Tobacco: Former Cigarettes 1 25.4 S tarted: 1999 Tobacco Cessation:Counseling Given: Not Answered Alcohol Use Standard Drinks/Week Comments No 0 (1 standard drink = 0.6 oz pur e alcohol) [facility] Utilities Answer Date Recorded In the past 12 months has [employer] electric, gas, oil, or water [employer] threatened to shut off services in your home? No 10/23/2024 Social Connection and Isolation Panel [NHANES] A nswer Date Recorded In a typical week, how many times do you talk on the phone with family, friends, or neighbors? Patient declined 10/23/2024 How often do you get togethe r with friends or relatives? Patient declined 10/23/2024 How often do you attend synagogue or oriental orthodox serv ices? Never 10/23/2024 Do you belong to any clubs o r organizations such as synagogue groups, unions, fraternal or athletic groups, or [...] and heating? Not hard at all 10/23/2024 [facility] of Occupat ional Health - Occupational Stress [...] place to sleep or slept in a jail (including now)? Patient declined 12/15/2023 Housing Stability [...] in the past 12 m [facility], were you homeless or living in a jail (including now)? No 10/23/2024 Sexually Active Control [...] 6:58 PM CDT Height 170.2 cm (5' 7) 10/26/2024 6:58 PM CDT Body Mass Index 39.16 10/26/2024 6:58 PM CDT Plan of Treatment Health Maintenance [...] on patient's age to complete this topic Human Papillomavirus (HPV) Immunization Aged Out No longer eligible based on patient's age to complete this topic Meningococcal Immunization (ACWY) Aged Out No longer eligible based on patient's age to complete this topic Rotavirus Immunization Aged Out No lo nger eligible based on patient's age to complete this topic Medical Devices Implanted Type Area Engine Boss Device Identifier Shelf Expiration Date Model / [...] - EGD Routine 10/11/2024 10:19 AM CDT IN ESOPHAGOGASTRODUODENOSCOP Y TRANSORAL DIAGNOSTIC 10/11/2024 10:18 AM CDT EGD WITH DILATION- DUODENUM BIOPSY RULE OUT H. PYLORI, ANTRAL BIOPSY RULE OUT H. PYLORI, 7 CM HIATAL HERNIA IN EGD FLEXIBLE TRANSNASAL D X W/COLLJ SPEC [...] PM CDT EKG SCAN 10/08/2024 12:00 AM CHAIRPERSON ANESTHESIOLOGY RHYTHM STRIP 10/08/2024 12:00 AM CHAIRPERSON ANESTHESIOLOGY HM COLONOSCOPY Routine 06/19/2010 from Last 3 [...] Clay Garnica M.D. KH: EDDIE Report ID: [id number] Reading Location: [id number] Procedure Note Clay Garnica MD - 10/26/2024 [...] Clay Garnica M.D. KH: EDDIE Report ID: [id number] Reading Location: [place] [address] IMPRESSION: No acute cardiopulmonary abnormality. Mathew Bower [facility] IMG DIAGNOSTIC ORDER GHANSHYAM Final Result * TROPONIN I, HIGH SENSITIVITY (HSTRP) (10/26/2024 7:09 PM CDT) Only the most recent of3 resultswithin the time period is included. TROPONIN I, HIGH SENSITIVITY- LINO <3 <=14 ng/L 10/26/2024 7:55 PM CDT [facility] Comment: High-sensitivity troponin I results are reported in ng/L making the result appear to be 1,000 times higher than the contemporary troponin I value which is reported in ng/ml. Results from [place]. Blood Venipuncture / Unknown 10/26/2024 7:09 PM CDT 10/26/2024 7:21 PM CDT Mathew Bower [facility] CHEMISTRY ORDERABLES Final Result [facility] [address] [place] [address] * (ABNORMAL) CBC with Auto Differential (10/26/2024 7:09 PM CDT) Only the most recent of9 resultswithin the time period is included. WBC 11.84 4.00 - 12.00 10(3)/mcL 10/26/2024 8:05 PM CDT [facility] RBC 4.36 3.80 - 5.30 10(6)/mcL 10/26/2024 8:05 PM CDT [facility] HEMOGLOBIN (HGB) 12.1 12.0 - 15.8 g/dL 10/26/2024 8:05 PM CDT [facility] HEMATOCRIT (HCT) 40.2 36.0 - 47.0 % 10/26/2024 8:05 PM CDT [facility] MCV 92.2 82.0 - 96.0 fL 10/26/2024 8:05 PM CDT [facility] MCH 27.8 26.0 - 34.0 pg 10/26/2024 8:05 PM CDT [facility] MCHC 30.1(L) 31.0 - 36.0 g/dL 10/26/2024 8:05 PM CDT [facility] PLATELET COUNT 296 140 - 440 10(3)/[facility] 10/26/2024 8:05 PM CDT [facility] RDW 16.0(H) 11.8 - 15.5 % 10/26/2024 8:05 PM CDT [facility] MPV 10.0 9.7 - 12.4 fL 10/26/2024 8:05 PM CDT [facility] NEUTROPHILS 91.6(H) 47.0 - 73.0 % 10/26/2024 8:05 PM CDT [facility] LYMPHOCYTES 4.4(L) 18.0 - 42.0 % 10/26/2024 8:05 PM CDT [facility] MONOCYTES 3.8(L) 4.0 - 12.0 % 10/26/2024 8:05 PM CDT [facility] EOSINOPHILS 0.0 0.0 - 5.0 % 10/26/2024 8:05 PM CDT [facility] BASOPHILS 0.2 0.0 - 1.0 % 10/26/2024 8:05 PM CDT [facility] ABSOLUTE NEUTROPHILS 10.85(H) 1.60 - 7.70 10(3)/mcL 10/26/2024 8:05 PM CDT [facility] ABSOLUTE LYMPHOCYTES 0.52(L) 1.30 - 3.20 10(3)/[facility] 10/26/2024 8:05 PM CDT [facility] ABSOLUTE MONOCYTES 0.45 0.20 - 1.00 10(3)/[facility] 10/26/2024 8:05 PM CDT [facility] ABSOLUTE EOSINOPHIL 0.00 0.00 - 0.40 10(3)/[facility] 10/26/2024 8:05 PM CDT [facility] ABSOLUTE BASOPHILS 0.02 0.00 - 0.10 10(3)/[facility] 10/26/2024 8:05 PM CDT [facility] NRBC PER 100 WBC 0 10/27/19 25 8:05 PM CDT [facility] RESULTS ARE CONSISTENT WITH PERIPHERAL SMEAR REVIEW Yes 10/26/2024 8:05 PM CDT [facility] RBC MORPHOLOGY CONSISTENT WITH INDICES Yes 10/26/2024 8:05 PM CDT [facility] Blood Venipuncture / Unknown 10/26/2024 7:09 PM CDT 10/26/2024 7:21 PM CDT us Mathew Bower PAC HEMATOLOGY ORDERABLE S Final Result [facility] [address] [place] [address] * Magnesium (10/26/2024 7:09 PM CDT) Only the most recent of2 resultswithin the time period is included. MAGNESIUM 1.9 1.6 - 2.6 mg/dL 10/26/2024 7:52 PM CDT [facility] Blood Venipuncture / Unknown 10/26/2024 7:09 PM CDT 10/26/2024 7:21 PM CDT us Mathew Coonn PAC CHEMISTRY ORDERABLES Final Result [facility] [address] [place] [address] * (ABNORMAL) CMP (10/26/2024 7:09 PM CDT) Only the most recent of3 resultswithin the time period is included. SODIUM 140 136 - 145 mmol/L 10/26/2024 7:52 PM CDT [facility] POTASSIUM 4.5 3.5 - 5.1 mmol/L 10/26/2024 7:52 PM CDT [facility] CHLORIDE 102 98 - 107 mmol/L 10/26/2024 7:52 PM CDT [facility] CO2, VENOUS 28 22 - 30 mmol/L 10/26/2024 7:52 PM CDT [facility] ANION GAP 14.5 <18.0 mmol/L 10/26/2024 7:52 PM CDT [facility] GLUCOSE 172(H) 70 - 99 mg/dL 10/26/2024 7:52 PM CDT [facility] BUN 31(H) 10 - 20 mg/dL 10/26/2024 7:52 PM CDT [facility] CREATININE, BLOOD 1.24(H) 0.60 - 1.00 mg/dL 10/26/2024 7:52 PM CDT [facility] BUN/CREATININE RATIO 25(H) 12 - 20 ratio 10/26/2024 7:52 PM CDT [facility] TOTAL PROTEIN 7.2 6.0 - 8.0 g/dL 10/26/2024 7:52 PM CDT [facility] ALBUMIN 4.1 3.5 - 5.0 g/dL 10/26/2024 7:52 PM CDT [facility] A/G RATIO 1.3 1.0 - 2.2 10/26/2024 7:52 PM CDT [facility] CALCIUM 9.3 8.7 - 10.5 mg/dL 10/26/2024 7:52 PM CDT [facility] T BILI 0.3 0.2 - 1.2 mg/dL 10/26/2024 7:52 PM CDT [facility] SGOT (AST) 13 <43 U/L 10/26/2024 7:52 PM CDT [facility] SGPT (ALT) 13 <56 U/L 10/26/2024 7:52 PM CDT [facility] ALKALINE PHOSPHATASE 116 40 - 150 U/L 10/26/2024 7:52 PM CDT [facility] GFR, ESTIMATED 49(L) >=60 10/26/2024 7:52 PM CDT [facility] Comment: Creatinine Clearance is the preferred criteria for selecting drug dose adjustments in renally impaired patients. The GFR is provided as additional pertinent clinical information. GFR is reported in mL/min/1.73 sq m. Calculation based on the Chronic Kidney Disease Epidemiology Collaboration (CKD- EPI) equation refit without adjustment for race. GFR, EST. 53(L) >=60 025 7:52 PM CDT [facility] GFR, EST. NONAFRICAN 44(L) >=60 10/26/2024 7:52 PM CDT [facility] Blood Venipuncture / Unknown 10/26/2024 7:09 PM CDT 10/26/2024 7:21 PM CDT us Mathew Bower PAC CHEMISTRY ORDERABLES Final Result [facility] [address] [place] [address] * (ABNORMAL) B-Type Natriuretic Peptide (BNP) (10/26/2024 7:09 PM CDT) Only the most recent of2 resultswithin the time period is included. B TYPE NATRIURETIC PEPTIDE 123(H) <100 pg/mL 10/26/2024 8:10 PM CDT [facility] Blood Venipuncture / Unknown 10/26/2024 7:09 PM CDT 10/26/2024 7:21 PM CDT us Mathew Bower PAC CHEMISTRY ORDERABLES Final Result [facility] [address] [place] [address] * EKG 12 LEAD (10/26/2024 6:49 PM CDT) Only the most recent of3 resultswithin the time period is included. Ventricular Rate 116 BPM EXTERNAL EKG Atrial Rate 116 BPM EXTERNAL EKG P-R Interval 144 ms EXTERNAL EKG QRS Duration 80 ms EXTERNAL EKG Q-T Duration 304 ms EXTERNAL EKG QTC CALCULATION 422 ms EXTERNAL EKG P [place] 62 degrees EXTERNAL EKG R [place] 9 degrees EXTERNAL EKG T [place] 44 degrees EXTERNAL EKG 10/26/2024 6:49 PM CDT Impressions EXTERNAL EKG - 10/31/2024 4:35 PM CDT Sinus tachycardia Otherwise normal ECG When compared with ECG of 22-OCT-2024 23:39, Minimal criteria for Inferior infarct are no longer present Confirmed by SONY MELTON ([id number]) on 10/31/2024 4:34:55 PM Narrative Procedure Note Sony Melton MD - 10/31/2024 IMPRESSION: Sinus tachycardia Otherwise normal ECG When compared with ECG of 22-OCT-2024 23:39, Minimal criteria for Inferior infarct are no longer present Confirmed by SONY MELTON ([id number]) on 10/31/2024 4:34:55 PM us Ramírez Sun MD IMG ECG ORDERABLES F inal Result EXTERNAL EKG * (ABNORMAL) BMP with Ca, Total (10/26/2024 4:40 AM CDT) Only the most recent of6 resultswithin the time period is included. SODIUM 141 136 - 145 mmol/L 10/26/2024 5:30 AM CDT [facility] POTASSIUM 4.7 3.5 - 5.1 mmol/L 10/26/2024 5:30 AM CDT [facility] CHLORIDE 103 98 - 107 mmol/L 10/26/2024 5:30 AM CDT [facility] CO2, VENOUS 30 22 - 30 mmol/L 10/26/2024 5:30 AM CDT [facility] ANION GAP 12.7 <18.0 mmol/L 10/26/2024 5:30 AM CDT [facility] GLUCOSE 121(H) 70 - 99 mg/dL 10/26/2024 5:30 AM CDT [facility] BUN 30(H) 10 - 20 mg/dL 10/26/2024 5:30 AM CDT [facility] CREATININE, BLOOD 1.16(H) 0.60 - 1.00 mg/dL 10/26/2024 5:30 AM CDT [facility] BUN/CREATININE RATIO 26(H) 12 - 20 ratio 10/26/2024 5:30 AM CDT [facility] CALCIUM 9.0 8.7 - 10.5 mg/dL 10/26/2024 5:30 AM CDT [facility] GFR, ESTIMATED 53(L) >=60 10/26/2024 5:30 AM CDT [facility] Comment: Creatinine Clearance is the preferred criteria for selecting drug dose adjustments in renally impaired patients. The GFR is provided as additional pertinent clinical information. GFR is reported in mL/min/1.73 sq m. Calculation based on the Chronic Kidney Disease Epidemiology Collaboration (CKD- EPI) equation refit without adjustment for race. GFR, EST. 57(L) >=60 025 5:30 AM CDT [facility] GFR, EST. NONAFRICAN 47(L) >=60 10/26/2024 5:30 AM CDT [facility] Blood Venipuncture / Unknown 10/26/2024 4:40 AM CDT 10/26/2024 4:53 AM CDT us Rossy Tay [employer], [employer] CHEMISTRY ORDERABLES Shelby l Result Performing Organization Address City/[facility] Co de Phone Number [facility] [address] [place] [address] * RHYTHM STRIP (10/26/2024 12:00 AM CDT) Only the most recent of22 resultswithin the time period is included. 10/26/2024 us Provider Scan IMG ECG ORDERABLES Final Result Performing Organization Address [facility] Co de Phone Number RESULTING AGENCY * EKG SCAN (10/26/2024 12:00 AM CDT) Only the most recent of3 resultswithin the time period is included. 10/26/2024 us Provider Scan IMG ECG ORDERABLES Final Result Performing Organization Address [facility] Co de Phone Number RESULTING AGENCY * MRI [...] Roland Elmore M.D. MATA: MATA Report ID: [id number] Reading Location: [place] [address] Procedure Note Roland Elmore MD - 10/24/2024 [...] Roland Elmore M.D. MATA: MATA Report ID: [id number] Reading Location: [place] [address] IMPRESSION: Constellation of levocurvature, spondylolisthesis, spondylosis, and degenerative disc disease of the lumbar spine as detailed level by level above. us Jina Mora MD IMG MR ORDERABLES Fi [...] signed by Clay MORGAN: EDDIE Report ID: [id number] Reading Location: [id number] Procedure Note Clay Garnica MD - 10/23/2024 [...] signed by Clay MORGAN: EDDIE Report ID: [id number] Reading Location: [id number] IMPRESSION: No acute spinal abnormality. Jina Mora MD IMG DIAGNOSTIC ORDER GHANSHYAM Final Result * Procalcitonin (10/23/2024 9:29 AM CDT) PROCALCITONIN 0.05 <=0.25 ng/mL 10/23/2024 11:43 AM CDT [facility] Blood Venipuncture / Unknown 10/23/2024 9:29 AM CDT 10/23/2024 10:55 AM CDT Narrative [facility] [...] Suggests bacterial infection. Antibiotic therapy strongly encouraged Jina Mora MD IMMUNOLOGY ORDERABLE S Final Result [facility] [address] [place] [address] * CT ANGIO CHEST W/WO ABDOMEN PELVIS [...] Gaby Guerra M.D. SN: SN Report ID: [id number] Reading Location: [id number] Procedure Note Gaby Guerra MD - 10/23/2024 [...] Gaby Guerra M.D. SN: SN Report ID: [id number] Reading Location: [id number] IMPRESSION: No CTA evidence of pulmonary embolism [...] 1.003 - 1.030 10/23/2024 3:03 AM CDT [facility] URINE PH 6.0 5.0 - 9.0 10/23/2024 3:03 AM CDT [facility] WBC ESTERASE Negative Negative 10/23/2024 3:03 AM CDT [facility] NITRITE Negative Negative 10/23/2024 3:03 AM CDT [facility] PROTEIN, RANDOM URINE 15 mg/dL(A) Negative 10/23/2024 3:03 AM CDT [facility] URINE GLUCOSE, QUAL Negative Negative 10/23/2024 3:03 AM CDT [facility] URINE KETONES Negative Negative 10/23/2024 3:03 AM CDT [facility] UROBILINOGEN Normal Normal mg/dL 10/23/2024 3:03 AM CDT [facility] URINE BLOOD Negative Negative jacob/ul 10/23/2024 3:03 AM CDT [facility] URINALYSIS COLOR Yellow 10/24/19 3:03 AM CDT [facility] URINALYSIS CLARITY Clear 10/23/2024 3:03 AM CDT [facility] Urine (Straight Catheter) Non-Phlebotomy Collection / Unknown 10/23/2024 2:32 AM CDT 10/23/2024 2:49 AM CDT iJm Garrido MD URINE ORDERABLES Final Re sult [facility] [address] [place] [address] * RSV,SARS-COV-2,INFLUENZA A&B BY PCR (10/23/2024 12:20 AM CDT) Only the most recent of2 resultswithin the time period is included. FLU A Negative Negative, Error 10/23/2024 1:09 AM CDT [facility] FLU B Negative Negative 10/23/2024 1:09 AM CDT [facility] RESP SYNC VIRUS Negative Negative 1:09 AM CDT [facility] SARSCOV2 NOT DETECTED (Reference Range for this test is Not Detected) 10/23/2024 1:09 AM CDT [facility] Comment:This test was perfor med by a Reverse Breakdown Man PCR Method. Swab NASOPHARYNGEAL WASHINGS / Unknown Non-Phlebotomy Collection / Unknown 10/23/2024 12:20 AM CDT 10/23/2024 12:30 AM CDT us Jim Garrido MD MICROBIOLOGY - GENERAL OR DERABLES Final Result [facility] [address] [place] [address] * (ABNORMAL) Blood Gases, Arterial w/ O2 Saturation [id number] (10/23/2024 12:06 AM CDT) Only the most recent of2 resultswithin the time period is included. O2 STATUS 15L High Flow Cannula 10/23/2024 12:10 AM CDT [facility] PH ARTERIAL 7.33(L) 7.35 - 7.45 10/23/2024 12:10 AM CDT [facility] PC02 (ARTERIAL) 54(H) 35 - 45 mmHg 10/23/2024 12:10 AM CDT [facility] PO2 (ARTERIAL) 61(L) 75 - 100 mmHg 10/23/2024 12:10 AM CDT [facility] O2 SAT ART, MEASURED 86(L) 94 - 100 % 10/23/2024 12:10 AM CDT [facility] BASE ARTERIAL 2.2(H) -2.0 - 2.0 mmol/L 10/23/2024 12:10 AM CDT [facility] BICARBONATE 28.6(H) 22.0 - 26.0 mmol/L 10/23/2024 12:10 AM CDT [facility] LULU'S TEST RESULTS Non-Radial Site 10/23/2024 12:10 AM CDT [facility] CARBOXYHEMOGLOBIN 1.0 0.0 - 5.0 % 10/23/2024 12:10 AM CDT [facility] METHEMOGLOBIN 0.5 0.0 - 1.5 % 10/23/2024 12:10 AM CDT [facility] ART Blood Gas Arterial Punctur e / Unknown 10/23/2024 12:06 AM CDT 10/23/2024 12:06 AM CDT Jim Garrido MD CHEMISTRY ORDERABLES Shelby l Result Performing Organization Address City/[facility] Co de Phone Number [facility] [address] [place] [address] * Blood Culture #2 (10/23/2024 12:05 AM CDT) Only the most recent of2 resultswithin the time period is included. CULTURE RESULTS NO GROWTH WITHIN 5 DAYS, FINAL RESULT 10/28/2024 1:00 AM CDT [facility] Culture BLOOD SPECIMEN / Unknown Venipuncture / Unknown 10/23/2024 12:05 AM CDT 10/23/2024 12:05 AM CDT Jim Garrido MD MICROBIOLOGY - GENERAL OR DERABLES Final Result Performing Organization Address City/[facility] Co de Phone Number [facility] [address] [place] [address], [place] * Gold Top Tube (10/22/2024 11:57 PM CDT) Only the most recent of2 resultswithin the time period is included. Blood No Phlebotomy Charged / Unknown 10/22/2024 11:57 PM CDT 10/23/2024 12:03 AM CDT Jim Garrido MD CHEMISTRY ORDERABLES Shelby l Result Performing Organization Address City/[facility] Co de Phone Number [facility] [address] [place] [address] * Blue Top Tube (10/22/2024 11:57 PM CDT) Only the most recent of2 resultswithin the time period is included. Blood No Phlebotomy Charged / Unknown 10/22/2024 11:57 PM CDT 10/23/2024 12:03 AM CDT Jim Garrido MD HEMATOLOGY ORDERABLES Fin al Result Performing Organization Address City/[facility]/ZIP Co de Phone Number [facility] [place] [address] * Lactic Acid (Lactate) (10/22/2024 11:57 PM CDT) LACTIC ACID 1.3 0.7 - 2.0 mmol/L 10/23/2024 12:25 AM CDT [facility] Blood Venipuncture / Unknown 10/22/2024 11:57 PM CDT 10/23/2024 12:05 AM CDT Jim Garrido MD CHEMISTRY ORDERABLES Shelby l Result Performing Organization Address [facility] Co de Phone Number [facility] [place] [address] * Critical Care (10/22/2024 11:55 PM CDT) [...] CDT) Case Report Surgical Pathology Report Case: [id number] Authorizing Provider: Manjinder Herrera MD Collected: 10/11/2024 10:24 AM Ordering Location: [facility] Received: 10/11/2024 11:56 AM [facility] Med Surg 2 [facility] Pathologist: Clarke Burks MD PhD Specimens: A) - Duodenum, DUODENUM BIOPSY RULE OUT H. PYLORI B) - Stomach, ANTRAL BIOPSY RULE OUT H. PYLORI 10/12/2024 9:30 AM CDT [facility] FINAL DIAGNOSIS A. Duodenum, biopsy: - Duodenal mucosa, negative for diagnostic abnormalities B. Antrum, rule out H. pylori, biopsy: - Gastric mucosa with focal mild chronic inflammation - Negative for acute inflammation or H. pylori by H&E stain 10/12/2024 9:30 AM CDT [facility] at 0930 CDT Pre-Operative Diagnosis DYSPHAGIA 10/12/2024 9:30 AM CDT [facility] Gross Description A. DUODENUM BIOPSY RULE [...] 19 minutes. MH/sb 10/12/2024 9:30 AM CDT [facility] Microscopic Description Microscopic examination was performed which supports the final diagnosis. All control tissues stained appropriately. 10/12/2024 9:30 AM CDT [facility] Tissue DUODENAL STRUCTURE / Unknown 10/11/2024 10:24 AM CDT 10/11/2024 11:56 AM CDT Tissue specimen (specimen) STOMACH STRUCTURE / Unknown 10/11/2024 10:27 AM CDT 10/11/2024 11:56 AM CDT us Manjinder Herrera MD PATHOLOGY/CYTOLOGY ORDERA BLES Final Result [facility] [address] [place] [address] * GI LAB IMAGING - EGD (10/11/2024 [...] name AMNA Moreno 1960 Patient ID (I) [id number] Indications: COPD, Hypertension and Congestive heart failure. [...] lbs. BMI (BSA) 34.37 kg/m^2 (2.15 m^2) Customer Service Analyst [facility] Room 234 Interpreting Linh VALENTINO Physician Sony Physician Procedure Note Sony Melton MD - 10/11/2024 Transthoracic Echocardiography Report (TTE) Patient name AMNA Moreno 1960 Patient ID ([facility] [[email or web address]]) [id number] Indications: COPD, Hypertension and Congestive heart failure. [...] lbs. BMI (BSA) 34.37 kg/m^2 (2.15 m^2) Customer Service Analyst [facility] Room 234 Interpreting Melton Referring GERGORY VALENTINO Physician Sony Physician Viky Damon MD IMG ECHO ORDERABLES Edited Res ult - Final * Hemoglobin A1C w/ Estimated Glucose (10/09/2024 3:56 AM CDT) HGB-A1C 5.7 4.0 - 6.0 % 10/09/2024 10:37 AM CDT [facility] Est Average Glucose 116.9 mg/dL 10/09/2024 10:37 AM CDT [facility] Blood Venipuncture / Unknown 10/09/2024 3:56 AM CDT 10/09/2024 4:01 AM CDT Narrative [facility] - 10/09/2024 10:37 AM CDT HEMOGLOBIN A1C: DIABETIC PATIENTS: WELL-CONTROLLED: 6.2 - 7.0 INTERMEDIATE WELL-CONTROLLED: 7.0 - 9.0 POORLY-CONTROLLED: >9.0 Specimens containing greater than 5% of Hemoglobin F may result in lower than expected % HbA1C results. Viky Damon MD CHEMISTRY ORDERABLES Final Res ult [facility] [address] [place] [address] * (ABNORMAL) Thyroid Stimulating Hormone (TSH) (10/09/2024 3:56 AM CDT) TSH 108.576(H) 0.300 - 5.000 mIU/L 10/09/2024 7:13 AM CDT [facility] Blood Venipuncture / Unknown 10/09/2024 3:56 AM CDT 10/09/2024 4:01 AM CDT Michelle Cast APRN, PUR[employer]ING [employer] CHEMISTRY ORDERABLES Final Result Performing Organization Address City/[facility] Co de Phone Number [facility] [address] [place] [address] * Critical Care (10/08/2024 8:20 PM CDT) [...] MD PROCEDURE/MINOR SURGICAL ORDERABLES Final Result * HM COLONOSCOPY (06/19/2010) Reece Ashotn MD PROCEDURE/MINOR SURGICAL ORDER GHANSHYAM Final Result from Last 3 Months or Most Recently Relevant to Health Maintenance Insurance [address] [place] [address] MED[address] [facility] [address] [address] [place] [address] Advance Directives * Full Code (Latest Code [...] measures to stabilize the patient. Care Teams Geotechnical Department Manager Relationship Specialty Start Date End Date Lianne Stack MD [address] [place] [address] PCP - General Family Medicine 01/13/23 Ryan Figueroa MD [address] [place] [address] Consulting Physician Pulmonary Disease 01/29/23 Gene Russell MD [address] [place] [id number] Consulting Physician Neurology 01/28/24
--- OUTSIDE RECORDS SUMMARY | 2024-12-24 17:08 | XMS_ITS | Encounter Summary ---
Author Organization [facility] Address [address] [place] [address] Phone Care Team Providers Care Automatic Pinsetter Adjuster Name Role Phone Lianne Stack MD Primary Care Provider [phone] Ryan Figueroa MD Unavailable Gene Russell MD Unavailable [phone] Encounter Details Date Type Department Care Team (Late st Contact Info) Description 11/17/2023 Transcribe Orders [facility] [address] [place] [address] Lianne Stack MD [address] [place] [address] Orthopnea (Primary Dx) Social History [...] on file documented as of this encounter Results * (ABNORMAL) CMP (COMPREHENSIVE METABOLIC PANEL) (11/17/2023 3:32 PM CDT) SODIUM 138 136 - 145 mmol/L 11/17/2023 5:37 PM CDT [facility] POTASSIUM 4.0 3.5 - 5.1 mmol/L 11/17/2023 5:37 PM CDT [facility] CHLORIDE 103 98 - 107 mmol/L 11/17/2023 5:37 PM CDT [facility] CO2, VENOUS 26 22 - 30 mmol/L 11/17/2023 5:37 PM CDT [facility] ANION GAP 13.0 <18.0 mmol/L 11/17/2023 5:37 PM CDT [facility] GLUCOSE 81 70 - 99 mg/dL 11/17/2023 5:37 PM CDT [facility] BUN 15 10 - 20 mg/dL 11/17/2023 5:37 PM CDT [facility] CREATININE, BLOOD 1.24(H) 0.60 - 1.00 mg/dL 11/17/2023 5:37 PM CDT [facility] BUN/CREATININE RATIO 12 12 - 20 ratio 11/17/2023 5:37 PM CDT [facility] TOTAL PROTEIN 7.1 6.3 - 8.2 g/dL 11/17/2023 5:37 PM CDT [facility] ALBUMIN 3.9 3.5 - 5.0 g/dL 11/17/2023 5:37 PM CDT [facility] A/G RATIO 1.2 1.0 - 2.2 11/17/2023 5:37 PM CDT [facility] CALCIUM 9.9 8.7 - 10.5 mg/dL 11/17/2023 5:37 PM CDT [facility] T BILI 0.3 0.2 - 1.2 mg/dL 11/17/2023 5:37 PM CDT [facility] SGOT (AST) 18 5 - 34 U/L 11/17/2023 5:37 PM CDT [facility] SGPT (ALT) 20 0 - 55 U/L 11/17/2023 5:37 PM CDT [facility] ALKALINE PHOSPHATASE 189(H) 40 - 150 U/L 11/17/2023 5:37 PM CDT [facility] IS THE PATIENT REQUIRED TO BE FASTING? No 11/17/2023 5:37 PM CDT [facility] GFR, ESTIMATED 49(L) >=60 11/17/2023 5:37 PM CDT [facility] Comment: Creatinine Clearance is the preferred criteria for selecting drug dose adjustments in renally impaired patients. The GFR is provided as additional pertinent clinical information. GFR is reported in mL/min/1.73 sq m. Calculation based on the Chronic Kidney Disease Epidemiology Collaboration (CKD- EPI) equation refit without adjustment for race. GFR, EST. 53(L) >=60 024 5:37 PM CDT [facility] GFR, EST. NONAFRICAN 44(L) >=60 11/17/2023 5:37 PM CDT [facility] Blood Venipuncture / Unknown 11/17/2023 3:32 PM CDT 11/17/2023 5:02 PM CDT us Lianne Stack MD CHEMISTRY ORDERABLES Final Re sult Performing Organization Address City/[facility]/ZIP Co de Phone Number [facility] [address] [place] [address] * B-TYPE NATRIURETIC PEPTIDE (BNP) (11/17/2023 3:32 PM CDT) B TYPE NATRIURETIC PEPTIDE 16 <100 pg/mL 11/17/2023 6:30 PM CDT [facility] Blood Venipuncture / Unknown 11/17/2023 3:32 PM CDT 11/17/2023 5:02 PM CDT us Lianne Stack MD CHEMISTRY ORDERABLES Final Re sult [facility] [address] [place] [address] documented in this encounter Visit Diagnoses Diagnosis Orthopnea- Primary documented in this encounter Additional Health Concerns Infection Onset Date Last Indicated Resolved Time COVID - 19 02/25/2024 02/25/2024 02/25/2024 4:10 AM CDT 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 02/25/2024 06/06/2024 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
--- OUTSIDE RECORDS SUMMARY | 2024-12-24 17:08 | XMS_ITS | Data Portability ---
Author Organization [facility] Address [address] [place] [address] Care Team Providers Care Computer Technical Specialist Name Role Phone LIANNE STACK Primary Care Provider DIANA Cornell Global Account Manager [phone] MARIZA KOROMA Repair Order Clerk Assessment No assessment recorded. Plan of Treatment Reminders Order Date Submit Date Provider Last Modified By Organization Details Last Modified Time Details Appointments None recorded. Lab drug screen, 14 drugs (detectim ed), urine - see med list; uses oxycodone 2024 025 [facility], [address] [facility], [facility], [place], [address], 5 03:40:36 BMP, serum or plasma 2023 024 [facility], [address] [facility], [facility], [place], [address], 4 03:36:48 TSH, ultra-sen sitive, serum 2023 024 [facility], [address] [facility], [address], [place], [address], 4 14:36:16 Referral pain managemen t referral - Chronic back pain; patient open to back injection s after having tried multiple pain medicatio ns 2024 025 [facility], [address], [place], [address], 5 04:23:[address] referral - blurry vision and pain with eye movement, subconjun ctival hemorrhag e of left eye 2023 [facility], [address], [place], [address], 5 08:53:55 cardiopul monary rehab referral - patient with COPD on supplemen godwin O2; gets fatigued easily 2023 024 [facility], [address] [place], [address], 5 14:21:42 Procedures None recorded. Surgeries None recorded. Imaging None recorded. Medication Orders oxycodone 5 mg tablet 2024 025 [facility] #[id number], [address], [place], [place], [id number], 5 15:30:42 oxycodone 5 mg tablet 2024 025 [facility] #[id number], [address], [place], [place], [id number], 5 15:30:43 oxycodone 5 mg tablet 2024 025 [facility] #[id number], [address], [place], [place], [id number], 5 15:30:40 cyclobenz aprine 10 mg tablet 2024 025 [facility] #[id number], [address], [place], [place], [id number], 5 15:13:49 oxycodone 5 mg tablet 2024 025 [facility] #64245, [address], [place], [place], [id number], 5 15:13:55 ketoconaz ole 2 % topical cream 2023 [facility] #[id number], [address], [place], [place], [id number], 4 16:29:33 Lidocaine Viscous 2 % mucosal solution 2023 [id number], [address], [place], [place], [id number], 5 15:04:56 cyclobenz aprine 10 mg tablet 2023 [facility] #[id number], [address], [place], [place], [id number], 4 14:10:12 meloxicam 15 mg tablet 2023 [facility] #[id number], [address], [place], [place], [id number], 5 14:38:55 oxycodone 5 mg tablet 2023 [facility] #[id number], [address], [place], [place], [id number], 4 14:10:23 Patient TargetsNo targets recorded. Patient InstructionsNo instructions recorded. Reason for Referral Cardiopulmonary Rehab Referr al for Chronic obstructive pulmonary disease patient with COPD on supplemental O2; gets fatigued easily Referring Physician: Lianne Stack [facility] Medicine, Encounter Date: 05/31/2024 Tax Director Referral for Russ n on eye movement blurry vision and pain with eye movement, subconjunctival hemorrhage of left eye Referring Physician: Lianne Stack [facility] Medicine, Encounter Date: 07/21/2024 Pain Management [...] DO Not Attach Compendium, Do Not Delete/merge, [id number] 05/15/2024 15:50:55 05/15/2005/15/2024 influ bryanna virus A + B + SARS- CoV-2 (COVI D19) Ag panel , rapid IA, upper respi rator y speci men Flu B negati ve Not Available In-Office Order Internal Use Only DO Not Attach Compendium DO Not Attach Compendium, Do Not Delete/merge, [id number] 05/15/2024 15:50:55 05/15/20 24 05/15/2024 influ bryanna virus A + B + SARS- CoV-2 (COVI D19) Ag panel , rapid IA, upper respi rator y speci men Rapid SARS CoV 2 Ag, QL IA, respiratory specimen negati ve Not Available In-Office Order Internal Use Only DO Not Attach Compendium DO Not Attach Compendium, Do Not Delete/merge, [id number] 05/15/2024 15:50:55 05/31/2005/31/2024 BASIC METAB OLIC PANEL (8) glucose 95 mg/dL 70-99 Not Available [facility] Department [address] [place], [address], 06/01/2024 03:36:48 05/31/20 24 05/31/2024 BASIC METAB OLIC PANEL (8) BUN 20 mg/dL 8-27 Not Available [facility] Department [address] [place], [address], 06/01/2024 03:36:48 05/31/2005/31/2024 BASIC METAB OLIC PANEL (8) creatinine 1.06 mg/dL 0.76-1 .27 Not Available [facility] Department [address] [place], [address], 06/01/2024 03:36:48 05/31/20 24 05/31/2024 BASIC METAB [...] disre kandice that value . Not Available [facility] Department [address] [place] [address], [address], 06/01/2024 03:36:48 05/31/2005/31/2024 BASIC METAB OLIC PANEL (8) BUN/creatini ne ratio 19 10-28 Not Available [facility] Department [address] [place], [address], 06/01/2024 03:36:48 05/31/2005/31/2024 BASIC METAB OLIC PANEL (8) sodium 140 mmol/ L 134-14 4 Not Available [facility] Department [address] [place], [address], 06/01/2024 03:36:48 05/31/2005/31/2024 BASIC METAB OLIC PANEL (8) potassium 4.7 mmol/ L 3.5-5. 2 Not Available [facility] Department [address] [place], [address], 06/01/2024 03:36:48 05/31/20 24 05/31/2024 BASIC METAB OLIC PANEL (8) chloride 103 mmol/ L 96-106 Not Available [facility] Department [address] [place], [address], 06/01/2024 03:36:48 05/31/20 24 05/31/2024 BASIC METAB OLIC PANEL (8) carbon dioxide, total 25 mmol/ L 20-29 Not Available [facility] Department [address] [place], [address], 06/01/2024 03:36:48 05/31/20 24 05/31/2024 BASIC METAB OLIC PANEL (8) calcium 9.2 mg/dL 8.7-10 .3 Not Available [facility] Department [address] [place], [address], 06/01/2024 03:36:48 05/31/2006/01/2024 TSH RFX ON ABNOR MAL TO FREE T4 TSH 1.560 uIU/m L 0.450- 4.500 Not Available [facility] ([facility]) [address] [facility], [place], [address], 06/01/2024 14:36:15 06/03/20 24 06/03/2024 Methi cilli [...] 4lpm/ nc 06/03 11:25 AM CDT [facility] Ayala [facility] Not Available Not Available 09/22/2024 21:59:29 06/03/20 24 06/03/2024 Gas panel - Arter ial blood pH of arterial blood 7.31 low: 7.35hi gh: 7.45 low PH ARTER IAL 7.31 (L) 7.35 - 7.45 06/03 11:25 AM CDT [facility] SERGEY MELENDEZT Jamie CENTE R [...] 2.0 mmol/ L 06/03 11:25 AM CDT [facility] M[facility] H [facility] Not Available Not Available 09/22/2024 21:59:29 06/03/20 24 06/03/2024 Gas panel - Arter ial blood bicarbonate [moles/volum e] in blood 34.4 mmol/ L low: 22mmol /Lhigh : 26mmol /L high BICAR BONAT E 34.4 (H) 22.0 - 26.0 mmol/ L 06/03 11:25 AM CDT [facility] Not Available Not Available 09/22/2024 21:59:29 06/03/20 24 06/03/2024 Gas panel - Arter ial blood arterial patency wrist artery --pre arterial puncture Positi ve - Right Radial LULU 'S TEST RESUL TS Posit tommy - Right Radia l 06/03 11:25 AM CDT [facility] R LAB Not Available Not Available 09/22/2024 21:59:29 06/03/20 24 06/03/2024 Gas panel - Arter ial blood carboxyhemog lobin/hemogl obin.total in blood 1 % low: 0%high : 5% CARBO XYHEM OGLOB IN 1.0 0.0 - 5.0 % 06/03 11:25 AM CDT [facility] Not Available Not Available 09/22/2024 21:59:29 06/03/20 24 06/03/2024 Gas panel - Arter ial blood methemoglobi n/hemoglobin .total in blood 0.4 % low: 0%high : 1.5% METHE MOGLO BIN 0.4 0.0 - 1.5 % 06/03 11:25 AM CDT [facility] Not Available Not Available 09/22/2024 [...] 2.0 mmol/ L 06/03 11:35 AM CDT [facility] Not Available Not Available 09/22/2024 [...] <100 pg/mL 06/03 11:56 AM CDT [facility]OpsE R LAB Not Available Not Available 09/22/2024 [...] 2.6 mg/dL 06/03 11:41 AM CDT [facility]OpsE R LAB Not Available Not Available 09/22/2024 [...] mmol/ L 06/03 11:41 AM CDT [facility] Not Available Not Available 09/22/2024 21:59:28 06/03/20 24 06/03/2024 Compr ehens tommy metab olic 2000 panel - Serum or Plasm a potassium [moles/volum e] in serum or plasma 4.7 mmol/ L low: 3.5mmo l/Lhig h: 5.1mmo l/L POTAS SIUM 4.7 3.5 - 5.1 mmol/ L 06/03 11:41 AM CDT [facility] Not Available Not Available 09/22/2024 21:59:28 06/03/20 24 06/03/2024 Compr ehens tommy metab olic 2000 panel - Serum or Plasm a chloride [moles/volum e] in serum or plasma 102 mmol/ L low: 98mmol /Lhigh : 107mmo l/L CHLOR ISABEL 102 98 - 107 mmol/ L 06/03 11:41 AM CDT [facility] Not Available Not Available 09/22/2024 21:59:28 06/03/20 24 06/03/2024 Compr ehens tommy metab olic 1999 panel - Serum or Plasm a carbon dioxide, total [moles/volum e] in serum or plasma 31 mmol/ L low: 22mmol /Lhigh : 30mmol /L high CO2, VENOU S 31 (H) 22 - 30 mmol/ L 06/03 11:41 AM CDT [facility] Not Available Not Available 09/22/2024 21:59:28 06/03/20 24 06/03/2024 Compr ehens tommy metab olic 1999 panel - Serum or Plasm a anion gap in serum or plasma 11.7 mmol/ L high: 18mmol /L ANION GAP 11.7 <18.0 mmol/ L 06/03 11:41 AM CDT [facility] Not Available Not Available 09/22/2024 21:59:28 06/03/20 24 06/03/2024 Compr Net Elementens tommy metab olic 1999 panel - Serum or Plasm a glucose [mass/volume ] in serum or plasma 111 mg/dL low: 70mg/d Lhigh: 99mg/d L high GLUCO SE 111 (H) 70 - 99 mg/dL 06/03 11:41 AM [facility] Not Available Not Available 09/22/2024 21:59:28 06/03/20 24 06/03/2024 Compr ehens tommy metab olic 1999 panel - Serum or Plasm a urea nitrogen [mass/volume ] in serum or plasma 21 mg/dL low: 10mg/d Lhigh: 20mg/d L high BUN 21 (H) 10 - 20 mg/dL 06/03 11:41 AM CDT [facility] At[facility] LAB Not Available Not Available 09/22/2024 21:59:28 06/03/20 24 06/03/2024 Compr Net Elementens tommy metab olic 1999 panel - Serum or Plasm a creatinine [mass/volume ] in serum or plasma 0.97 mg/dL low: 0.6mg/ dLhigh : 1mg/dL CREAT ININE , BLOOD 0.97 0.60 - 1.00 mg/dL 06/03 11:41 AM CDT [facility] At[facility] LAB Not Available Not Available 09/22/2024 21:59:28 06/03/20 24 06/03/2024 Compr Net Elementens tommy metab olic 2000 panel - Serum or Plasm a urea nitrogen/cre atinine [mass ratio] in serum or plasma 22 text: 12 - 20 ratio high BUN/C REATI NINE RATIO 22 (H) 12 - 20 ratio 06/03 11:41 AM [facility] Not Available Not Available 09/22/2024 21:59:28 06/03/20 24 06/03/2024 Compr ehens tommy metab olic 2000 panel - Serum or Plasm a protein [mass/volume ] in serum or plasma 6.6 g/dL low: 6.3g/d Lhigh: 8.2g/d L TOTAL PROTE IN 6.6 6.3 - 8.2 g/dL 06/03 11:41 AM CDT [facility] Not Available Not Available 09/22/2024 21:59:28 06/03/20 24 06/03/2024 Compr Net Elementens tommy metab olic 2000 panel - Serum or Plasm a albumin [mass/volume ] in serum or plasma 4 g/dL low: 3.5g/d Lhigh: 5g/dL ALBUM IN 4.0 3.5 - 5.0 g/dL 06/03 11:41 AM CDT [facility] Not Available Not Available 09/22/2024 21:59:28 06/03/20 24 06/03/2024 Compr Net Elementens tommy metab olic 2000 panel - Serum or Plasm a albumin/glob ulin [mass ratio] in serum or plasma 1.5 low: 1high: 2.2 A/G RATIO 1.5 1.0 - 2.2 06/03 11:41 AM CDT [facility] Not Available Not Available 09/22/2024 21:59:28 06/03/20 24 06/03/2024 Compr Accruent tommy metab olic 2000 panel - Serum or Plasm a calcium [mass/volume ] in serum or plasma 9.5 mg/dL low: 8.7mg/ dLhigh : 10.5mg /dL CALCI UM 9.5 8.7 - 10.5 mg/dL 06/03 11:41 AM CDT [facility] Not Available Not Available 09/22/2024 21:59:28 06/03/20 24 06/03/2024 Compr Net Elementens tommy metab olic 2000 panel - Serum or Plasm a bilirubin.to godwin [mass/volume ] in serum or plasma 0.4 mg/dL low: 0.2mg/ dLhigh : 1.2mg/ dL T BILI 0.4 0.2 - 1.2 mg/dL 06/03 11:41 AM CDT [facility] Not Available Not Available 09/22/2024 21:59:28 06/03/20 24 06/03/2024 Compr Net Elementens tommy metab olic 1999 panel - Serum or Plasm a aspartate aminotransfe rase [enzymatic activity/vol ume] in serum or plasma 16 U/L low: 5U/Lhi gh: 34U/L SGOT (AST) 16 5 - 34 U/L 06/03 11:41 AM [facility] Not Available Not Available 09/22/2024 21:59:28 06/03/20 24 06/03/2024 Compr ehens tommy metab olic 1999 panel - Serum or Plasm a alanine aminotransfe rase [enzymatic activity/vol ume] in serum or plasma 19 U/L low: 0U/Lhi gh: 55U/L SGPT (ALT) 19 0 - 55 U/L 06/03 11:41 AM CD[facility] Not Available Not Available 09/22/2024 21:59:28 06/03/20 24 06/03/2024 Compr Net Elementens tommy metab olic 1999 panel - Serum or Plasm a alkaline phosphatase [enzymatic activity/vol ume] in serum or plasma 118 U/L low: 40U/Lh igh: 150U/L ALKAL INE PHOSP HATAS E 118 40 - 150 U/L 06/03 11:41 AM CDT [facility] Not Available Not Available 09/22/2024 21:59:28 06/03/20 24 06/03/2024 Compr ehens tommy metab olic 1999 panel - Serum or Plasm a glomerular filtration rate/1.73 sq M.predicted among non-blacks [volume rate/area] in serum, plasma or blood by creatinine-b ased formula (MDRD) low: 60 GFR, ESTIM ATED >60 >=60 06/03 11:41 AM CDT [facility] Not Available Not Available 09/22/2024 21:59:28 06/03/20 24 06/03/2024 Compr ehens tommy metab olic 2000 panel - Serum or Plasm a glomerular filtration rate/1.73 sq M.predicted among blacks [volume rate/area] in serum, plasma or blood by creatinine-b ased formula (MDRD) low: 60 GFR, EST. AFRIC AN >60 >=60 06/03 11:41 AM CDT [facility] Not Available Not Available 09/22/2024 21:59:28 06/03/20 24 06/03/2024 Compr ehens tommy metab olic 2000 panel - Serum or Plasm a glomerular filtration rate/1.73 sq M.predicted among non-blacks [volume rate/area] in serum, plasma or blood by creatinine-b ased formula (MDRD) 58 low: 60 low GFR, EST. NONAF RICAN 58 (L) >=60 06/03 11:41 AM CDT [facility] R LAB Not Available Not Available 09/22/2024 [...] ve, error FLU A Negat tommy Negat otmmy, Error 06/03 12:00 PM CDT [facility] Not Available Not Available 09/22/2024 [...] Negat tommy 06/03 12:00 PM CDT [facility] R LAB Not Available Not Available 09/22/2024 [...] Negat tommy 06/03 12:00 PM CDT [facility] R LAB Not Available Not Available 09/22/2024 [...] Detec joão) 06/03 12:00 PM CDT [facility] LAB Not Available Not Available 09/22/2024 [...] - 145 mmol/ L 06/06 6:48 AM [facility] LAB Not Available Not Available 09/22/2024 21:59:29 06/06/20 24 06/06/2024 Basic metab olic 1999 panel - Serum or Plasm a potassium [moles/volum e] in serum or plasma 4.6 mmol/ L low: 3.5mmo l/Lhig h: 5.1mmo l/L POTAS SIUM 4.6 3.5 - 5.1 mmol/ L 06/06 6:48 AM [facility] Not Available Not Available 09/22/2024 21:59:29 06/06/20 24 06/06/2024 Basic metab olic 2000 panel - Serum or Plasm a chloride [moles/volum e] in serum or plasma 98 mmol/ L low: 98mmol /Lhigh : 107mmo l/L CHLOR ISABEL 98 98 - 107 mmol/ L 06/06 6:48 AM [facility] Not Available Not Available 09/22/2024 21:59:29 06/06/20 24 06/06/2024 Basic metab olic 2000 panel - Serum or Plasm a carbon dioxide, total [moles/volum e] in serum or plasma 33 mmol/ L low: 22mmol /Lhigh : 30mmol /L high CO2, VENOU S 33 (H) 22 - 30 mmol/ L 06/06 6:48 AM [facility] R LAB Not Available Not Available 09/22/2024 21:59:29 06/06/20 24 06/06/2024 Basic metab olic 2000 panel - Serum or Plasm a anion gap in serum or plasma 12.6 mmol/ L high: 18mmol /L ANION GAP 12.6 <18.0 mmol/ L 06/06 6:48 AM [facility] Not Available Not Available 09/22/2024 21:59:29 06/06/20 24 06/06/2024 Basic metab olic 2000 panel - Serum or Plasm a glucose [mass/volume ] in serum or plasma 101 mg/dL low: 70mg/d Lhigh: 99mg/d L high GLUCO SE 101 (H) 70 - 99 mg/dL 06/06 6:48 AM [facility] C[facility] LAB Not Available Not Available 09/22/2024 21:59:29 06/06/20 24 06/06/2024 Basic metab olic 2000 panel - Serum or Plasm a urea nitrogen [mass/volume ] in serum or plasma 32 mg/dL low: 10mg/d Lhigh: 20mg/d L high BUN 32 (H) 10 - 20 mg/dL 06/06 6:48 AM [facility] Not Available Not Available 09/22/2024 21:59:29 06/06/20 24 06/06/2024 Basic metab olic 2000 panel - Serum or Plasm a creatinine [mass/volume ] in serum or plasma 1.05 mg/dL low: 0.6mg/ dLhigh : 1mg/dL high CREAT ININE , BLOOD 1.05 (H) 0.60 - 1.00 mg/dL 06/06 6:48 AM [facility] Not Available Not Available 09/22/2024 21:59:29 06/06/20 24 06/06/2024 Basic metab olic 1999 panel - Serum or Plasm a urea nitrogen/cre atinine [mass ratio] in serum or plasma 30 text: 12 - 20 ratio high BUN/C REATI NINE RATIO 30 (H) 12 - 20 ratio 06/06 6:48 AM [facility] Not Available Not Available 09/22/2024 21:59:29 06/06/20 24 06/06/2024 Basic metab olic 1999 panel - Serum or Plasm a calcium [mass/volume ] in serum or plasma 9.6 mg/dL low: 8.7mg/ dLhigh : 10.5mg /dL CALCI UM 9.6 8.7 - 10.5 mg/dL 06/06 6:48 AM [facility] Not Available Not Available 09/22/2024 21:59:29 06/06/20 24 06/06/2024 Basic metab olic 1999 panel - Serum or Plasm a glomerular filtration rate/1.73 sq M.predicted among non-blacks [volume rate/area] in serum, plasma or blood by creatinine-b ased formula (MDRD) 60 low: 60 GFR, ESTIM ATED 60 >=60 06/06 6:48 AM [facility] C[facility] Not Available Not Available 09/22/2024 21:59:29 06/06/20 24 06/06/2024 Basic metab olic 2000 panel - Serum or Plasm a glomerular filtration rate/1.73 sq M.predicted among blacks [volume rate/area] in serum, plasma or blood by creatinine-b ased formula (MDRD) low: 60 GFR, EST. AFRIC AN >60 >=60 06/06 6:48 AM [facility] Not Available Not Available 09/22/2024 21:59:29 06/06/20 24 06/06/2024 Basic metab olic 2000 panel - Serum or Plasm a glomerular filtration rate/1.73 sq M.predicted among non-blacks [volume rate/area] in serum, plasma or blood by creatinine-b ased formula (MDRD) 53 low: 60 low GFR, EST. NONAF RICAN 53 (L) >=60 06/06 6:48 AM [facility] [employer] [facility] Not Available Not [...] - 12.00 10(3) /mcL 06/06 8:26 AM [facility] Not Available Not Available 09/22/2024 21:59:29 06/06/20 24 06/06/2024 CBC W Auto Diffe renti al panel - Blood erythrocytes [#/volume] in blood by automated count 4.61 text: 3.80 - 5.30 10(6)/ mcL RBC 4.61 3.80 - 5.30 10(6) /mcL 06/06 8:26 AM [facility] Not Available Not Available 09/22/2024 21:59:29 06/06/20 24 06/06/2024 CBC W Auto Diffe renti al panel - Blood hemoglobin [mass/volume ] in blood 13 g/dL low: 12g/dL high: 15.8g/ dL HEMOG LOBIN (HGB) 13.0 12.0 - 15.8 g/dL 06/06 8:26 AM [facility] Not Available Not Available 09/22/2024 21:59:29 06/06/20 24 06/06/2024 CBC W Auto Diffe renti al panel - Blood hematocrit [volume fraction] of blood by automated count 42.2 % low: 36%hig h: 47% HEMAT OCRIT (HCT) 42.2 36.0 - 47.0 % 06/06 8:26 AM [facility] Not Available Not Available 09/22/2024 21:59:29 06/06/20 24 06/06/2024 CBC W Auto Diffe renti al panel - Blood MCV [entitic volume] by automated count 91.5 fL low: 82fLhi gh: 96fL MCV 91.5 82.0 - 96.0 fL 06/06 8:26 AM [facility] Not Available Not Available 09/22/2024 21:59:29 06/06/20 24 06/06/2024 CBC W Auto Diffe renti al panel - Blood MCH [entitic mass] by automated count 28.2 pg low: 26pghi gh: 34pg MCH 28.2 26.0 - 34.0 pg 06/06 8:26 AM [facility] Not Available Not Available 09/22/2024 21:59:29 06/06/20 24 06/06/2024 CBC W Auto Diffe renti al panel - Blood MCHC [mass/volume ] by automated count 30.8 g/dL low: 31g/dL high: 36g/dL low MCHC 30.8 (L) 31.0 - 36.0 g/dL 06/06 8:26 AM [facility] Not Available Not Available 09/22/2024 21:59:29 06/06/20 24 06/06/2024 CBC W Auto Diffe renti al panel - Blood platelets [#/volume] in blood 293 text: 140 - 440 10(3)/ mcL PLATE LET COUNT 293 140 - 440 10(3) /mcL 06/06 8:26 AM [facility] Not Available Not Available 09/22/2024 21:59:29 06/06/20 24 06/06/2024 CBC W Auto Diffe renti al panel - Blood erythrocyte distribution width [ratio] by automated count 15.2 % low: 11.8%h igh: 15.5% RDW 15.2 11.8 - 15.5 % 06/06 8:26 AM [facility] Not Available Not Available 09/22/2024 21:59:29 06/06/20 24 06/06/2024 CBC W Auto Diffe renti al panel - Blood platelet mean volume [entitic volume] in blood by automated count 9.4 fL low: 9.7fLh igh: 12.4fL low MPV 9.4 (L) 9.7 - 12.4 fL 06/06 8:26 AM [facility] Not Available Not Available 09/22/2024 21:59:29 06/06/20 24 06/06/2024 CBC W Auto Diffe renti al panel - Blood neutrophils/ 100 leukocytes in blood by automated count 91.6 % low: 47%hig h: 73% high NEUTR OPHIL S 91.6 (H) 47.0 - 73.0 % 06/06 8:26 AM [facility] Not Available Not Available 09/22/2024 21:59:29 06/06/20 24 06/06/2024 CBC W Auto Diffe renti al panel - Blood lymphocytes/ 100 leukocytes in blood by automated count 4.8 % low: 18%hig h: 42% low LYMPH OCYTE S 4.8 (L) 18.0 - 42.0 % 06/06 8:26 AM [facility] Not Available Not Available 09/22/2024 21:59:29 11/05/20 24 06/06/2024 CBC W Auto Diffe renti al panel - Blood monocytes/10 0 leukocytes in blood by automated count 3.6 % low: 4%high : 12% low MONOC YTES 3.6 (L) 4.0 - 12.0 % 06/06 8:26 AM [facility] Not Available Not Available 09/22/2024 21:59:29 06/06/20 24 06/06/2024 CBC W Auto Diffe renti al panel - Blood eosinophils/ 100 leukocytes in blood by automated count 0 % low: 0%high : 5% EOSIN OPHIL S 0.0 0.0 - 5.0 % 06/06 8:26 AM [facility] Building[facility]E R LAB Not Available Not Available 09/22/2024 21:59:29 06/06/20 24 06/06/2024 CBC W Auto Diffe renti al panel - Blood basophils/10 0 leukocytes in blood by automated count 0 % low: 0%high : 1% BASOP HILS 0.0 0.0 - 1.0 % 06/06 8:26 AM [facility] [facility] Not Available Not Available 09/22/2024 21:59:29 06/06/20 24 06/06/2024 CBC W Auto Diffe renti al panel - Blood neutrophils [#/volume] in blood by automated count 10.71 text: 1.60 - 7.70 10(3)/ mcL high ABSOL EAGLE NEUTR OPHIL S 10.71 (H) 1.60 - 7.70 10(3) /mcL 06/06 8:26 AM [facility] Not Available Not Available 09/22/2024 21:59:29 06/06/20 24 06/06/2024 CBC W Auto Diffe renti al panel - Blood lymphocytes [#/volume] in blood by automated count 0.56 text: 1.30 - 3.20 10(3)/ mcL low ABSOL EAGLE LYMPH OCYTE S 0.56 (L) 1.30 - 3.20 10(3) /mcL 06/06 8:26 AM [facility] Not Available Not Available 09/22/2024 21:59:29 06/06/20 24 06/06/2024 CBC W Auto Diffe renti al panel - Blood monocytes [#/volume] in blood by automated count 0.42 text: 0.20 - 1.00 10(3)/ mcL ABSOL EAGLE MONOC YTES 0.42 0.20 - 1.00 10(3) /mcL 06/06 8:26 AM [facility] Not Available Not Available 09/22/2024 21:59:29 06/06/20 24 06/06/2024 CBC W Auto Diffe renti al panel - Blood eosinophils [#/volume] in blood by automated count 0 text: 0.00 - 0.40 10(3)/ mcL ABSOL EAGLE EOSIN OPHIL 0.00 0.00 - 0.40 10(3) /mcL 06/06 8:26 AM [facility] Not Available Not Available 09/22/2024 21:59:29 06/06/20 24 06/06/2024 CBC W Auto Diffe renti al panel - Blood basophils [#/volume] in blood by automated count 0 text: 0.00 - 0.10 10(3)/ mcL ABSOL EAGLE BASOP HILS 0.00 0.00 - 0.10 10(3) /mcL 06/06 8:26 AM [facility] Not Available Not Available 09/22/2024 21:59:29 06/06/20 24 06/06/2024 CBC W Auto Diffe renti al panel - Blood nucleated erythrocytes /100 leukocytes [ratio] in blood 0 NRBC PER 100 WBC 0 06/06 8:26 AM [facility] Not Available Not Available 09/22/2024 21:59:29 06/06/20 24 06/06/2024 CBC W Auto Diffe renti al panel - Blood fruit bar maker review of results Yes RESUL TS ARE CONSI STENT WITH PERIP HERAL SMEAR REVIE W Yes 06/06 8:26 AM [facility] [...] S 5L nc 10/08 8:34 PM CDT [facility] Not Available Not Available 10/19/2024 14:09:30 10/09/1910/08/2024 Gas panel - Arter ial blood pH of arterial blood 7.53 low: 7.35hi gh: 7.45 high PH ARTER IAL 7.53 (H) 7.35 - 7.45 10/08 8:34 PM CDT [facility] Not Available Not Available 10/19/2024 14:09:30 10/09/19 25 10/08/2024 Gas panel - Arter ial blood carbon dioxide [partial pressure] in arterial blood 29 text: 35 - 45 mmHg low PC02 (SKY RIAL) 29 (L) 35 - 45 mmHg 10/08 8:34 PM CDT [facility] Not Available Not Available 10/19/2024 14:09:30 10/09/19 25 10/08/2024 Gas panel - Arter ial blood oxygen [partial pressure] in arterial blood 88 text: 75 - 100 mmHg PO2 (SKY RIAL) 88 75 - 100 mmHg 10/08 8:34 PM CDT [facility] Not Available Not Available 10/19/2024 14:09:30 10/09/19 25 10/08/2024 Gas panel - Arter ial blood oxygen saturation in arterial blood 97 % low: 94%hig h: 100% O2 SAT ART, MEASU RED 97 94 - 100 % 10/08 8:34 PM CDT [facility] Not Available Not Available 10/19/2024 14:09:30 10/09/19 25 10/08/2024 Gas panel - Arter ial blood base arterial 3.1 mmol/ L low: -2mmol /Lhigh : 2mmol/ L high BASE ARTER IAL 3.1 (H) -2.0 - 2.0 mmol/ L 10/08 8:34 PM CDT [facility] Not Available Not Available 10/19/2024 14:09:30 10/09/1910/08/2024 Gas panel - Arter ial blood bicarbonate [moles/volum e] in blood 24.2 mmol/ L low: 22mmol /Lhigh : 26mmol /L BICAR BONAT E 24.2 22.0 - 26.0 mmol/ L 10/08 8:34 PM CDT [facility] Not Available Not Available 10/19/2024 14:09:30 10/09/1910/08/2024 Gas panel - Arter ial blood arterial patency wrist artery --pre arterial puncture Positi ve - Right Radial LULU 'S TEST RESUL TS Posit tommy - Right Radia l 10/08 8:34 PM CDT [facility] Not Available Not Available 10/19/2024 14:09:30 10/09/19 25 10/08/2024 Gas panel - Arter ial blood carboxyhemog lobin/hemogl obin.total in blood 0.7 % low: 0%high : 5% CARBO XYHEM OGLOB IN 0.7 0.0 - 5.0 % 10/08 8:34 PM CDT [facility] Not Available Not Available 10/19/2024 14:09:30 10/09/19 25 10/08/2024 Gas panel - Arter ial blood methemoglobi n/hemoglobin .total in blood 0.5 % low: 0%high : 1.5% METHE MOGLO BIN 0.5 0.0 - 1.5 % 10/08 8:34 PM CDT [facility] Not Available Not Available 10/19/2024 [...] 2.6 mg/dL 10/08 8:42 PM CDT [facility] Not Available Not Available 10/19/2024 [...] mmol/ L 10/08 8:42 PM CDT [facility] Not Available Not Available 10/19/2024 14:09:30 10/09/1910/08/2024 Compr ehens tommy metab olic 1999 panel - Serum or Plasm a potassium [moles/volum e] in serum or plasma 4.2 mmol/ L low: 3.5mmo l/Lhig h: 5.1mmo l/L POTAS SIUM 4.2 3.5 - 5.1 mmol/ L 10/08 8:42 PM CDT [facility] Not Available Not Available 10/19/2024 14:09:30 10/09/19 25 10/08/2024 Compr ehens tommy metab olic 1999 panel - Serum or Plasm a chloride [moles/volum e] in serum or plasma 99 mmol/ L low: 98mmol /Lhigh : 107mmo l/L CHLOR ISABEL 99 98 - 107 mmol/ L 10/08 8:42 PM CDT [facility] Not Available Not Available 10/19/2024 14:09:30 10/09/19 25 10/08/2024 Compr ehens tommy metab olic 2000 panel - Serum or Plasm a carbon dioxide, total [moles/volum e] in serum or plasma 23 mmol/ L low: 22mmol /Lhigh : 30mmol /L CO2, VENOU S 23 22 - 30 mmol/ L 10/08 8:42 PM CDT [facility] Not Available Not Available 10/19/2024 14:09:30 10/09/19 25 10/08/2024 Compr ehens tommy metab olic 2000 panel - Serum or Plasm a anion gap in serum or plasma 19.2 mmol/ L high: 18mmol /L high ANION GAP 19.2 (H) <18.0 mmol/ L 10/08 8:42 PM CDT [facility] Not Available Not Available 10/19/2024 14:09:30 10/09/19 25 10/08/2024 Compr ehens tommy metab olic 2000 panel - Serum or Plasm a glucose [mass/volume ] in serum or plasma 130 mg/dL low: 70mg/d Lhigh: 99mg/d L high GLUCO SE 130 (H) 70 - 99 mg/dL 10/08 8:42 PM CDT [facility] Not Available Not Available 10/19/2024 14:09:30 10/09/19 25 10/08/2024 Compr ehens tommy metab olic 2000 panel - Serum or Plasm a urea nitrogen [mass/volume ] in serum or plasma 18 mg/dL low: 10mg/d Lhigh: 20mg/d L BUN 18 10 - 20 mg/dL 10/08 8:42 PM CD[facility] Not Available Not Available 10/19/2024 14:09:30 10/09/19 25 10/08/2024 Compr Net Elementens tommy metab olic 1999 panel - Serum or Plasm a creatinine [mass/volume ] in serum or plasma 1.28 mg/dL low: 0.6mg/ dLhigh : 1mg/dL high CREAT ININE , BLOOD 1.28 (H) 0.60 - 1.00 mg/dL 10/08 8:42 PM CDT [facility] Not Available Not Available 10/19/2024 14:09:30 10/09/19 25 10/08/2024 Compr ehens tommy metab olic 1999 panel - Serum or Plasm a urea nitrogen/cre atinine [mass ratio] in serum or plasma 14 text: 12 - 20 ratio BUN/C REATI NINE RATIO 14 12 - 20 ratio 10/08 8:42 PM CDT [facility] LAB Not Available Not Available 10/19/2024 14:09:30 10/09/19 25 10/08/2024 Compr Net Elementens tommy metab olic 2000 panel - Serum or Plasm a protein [mass/volume ] in serum or plasma 8 g/dL low: 6g/dLh igh: 8g/dL TOTAL PROTE IN 8.0 6.0 - 8.0 g/dL 10/08 8:42 PM CDT [facility] [employer] LAB Not Available Not Available 10/19/2024 14:09:30 10/09/19 25 10/08/2024 Compr Net Elementens tommy metab olic 2000 panel - Serum or Plasm a albumin [mass/volume ] in serum or plasma 4.3 g/dL low: 3.5g/d Lhigh: 5g/dL ALBUM IN 4.3 3.5 - 5.0 g/dL 10/08 8:42 PM CDT [facility] [employer] [facility] Not Available Not Available 10/19/2024 14:09:30 10/09/19 25 10/08/2024 Compr Net Elementens tommy metab olic 2000 panel - Serum or Plasm a albumin/glob ulin [mass ratio] in serum or plasma 1.2 low: 1high: 2.2 A/G RATIO 1.2 1.0 - 2.2 10/08 8:42 PM [facility] Not Available Not Available 10/19/2024 14:09:30 10/09/19 25 10/08/2024 Compr ehens tommy metab olic 1999 panel - Serum or Plasm a calcium [mass/volume ] in serum or plasma 10.2 mg/dL low: 8.7mg/ dLhigh : 10.5mg /dL CALCI UM 10.2 8.7 - 10.5 mg/dL 10/08 8:42 PM CDT [facility] Not Available Not Available 10/19/2024 14:09:30 10/09/1910/08/2024 Compr ehens tommy metab olic 1999 panel - Serum or Plasm a bilirubin.to godwin [mass/volume ] in serum or plasma 0.4 mg/dL low: 0.2mg/ dLhigh : 1.2mg/ dL T BILI 0.4 0.2 - 1.2 mg/dL 10/08 8:42 PM CDT [facility] Not Available Not Available 10/19/2024 14:09:30 10/09/19 25 10/08/2024 Compr ehens tommy metab olic 1999 panel - Serum or Plasm a aspartate aminotransfe rase [enzymatic activity/vol ume] in serum or plasma 23 U/L high: 43U/L SGOT (AST) 23 <43 U/L 10/08 8:42 PM CDT [facility] Not Available Not Available 10/19/2024 14:09:30 10/09/19 25 10/08/2024 Compr ehens tommy metab olic 1999 panel - Serum or Plasm a alanine aminotransfe rase [enzymatic activity/vol ume] in serum or plasma 13 U/L high: 56U/L SGPT (ALT) 13 <56 U/L 10/08 8:42 PM CD[facility] Not Available Not Available 10/19/2024 14:09:30 10/09/19 25 10/08/2024 Compr ehens tommy metab olic 1999 panel - Serum or Plasm a alkaline phosphatase [enzymatic activity/vol ume] in serum or plasma 138 U/L low: 40U/Lh igh: 150U/L ALKAL INE PHOSP HATAS E 138 40 - 150 U/L 10/08 8:42 PM CDT [facility] Not Available Not Available 10/19/2024 14:09:30 10/09/1910/08/2024 Compr ehens tommy metab olic 1999 panel - Serum or Plasm a glomerular filtration rate/1.73 sq M.predicted among non-blacks [volume rate/area] in serum, plasma or blood by creatinine-b ased formula (MDRD) 47 low: 60 low GFR, ESTIM ATED 47 (L) >=60 10/08 8:42 PM CDT [facility] LAB Not Available Not Available 10/19/2024 14:09:30 10/09/1910/08/2024 Compr Net Elementens tommy metab olic 1999 panel - Serum or Plasm a glomerular filtration rate/1.73 sq M.predicted among blacks [volume rate/area] in serum, plasma or blood by creatinine-b ased formula (MDRD) 51 low: 60 low GFR, EST. AFRIC AN 51 (L) >=60 10/08 8:42 PM CDT [facility] LAB Not Available Not Available 10/19/2024 14:09:30 10/09/1910/08/2024 Compr ehens tommy metab olic 1999 panel - Serum or Plasm a glomerular filtration rate/1.73 sq M.predicted among non-blacks [volume rate/area] in serum, plasma or blood by creatinine-b ased formula (MDRD) 42 low: 60 low GFR, EST. NONAF RICAN 42 (L) >=60 10/08 8:42 PM CDT [facility] [employer] [facility] R LAB Not Available Not [...] tommy, Error 10/08 9:00 PM CDT [facility] LAB Not Available Not Available 10/19/2024 [...] Negat tommy 10/08 9:00 PM CDT [facility] H [facility] LAB Not Available Not Available 10/19/2024 [...] Negat tommy 10/08 9:00 PM CDT [facility] R LAB Not Available Not [...] Detec joão) 10/08 9:00 PM CDT [facility] [employer] LAB Not Available Not Available 10/19/2024 14:09:30 [...] 5.000 mIU/L 10/09 7:13 AM CDT [facility] Not Available Not Available 10/19/2024 [...] <100 pg/mL 10/10 2:23 PM CDT [facility] [employer] [facility] LAB Not Available Not Available 10/19/2024 [...] 10(3) /mcL 10/11 6:00 AM CDT [facility] Not Available Not Available 10/19/2024 14:09:30 10/12/19 25 10/11/2024 CBC W Auto Diffe renti al panel - Blood erythrocytes [#/volume] in blood by automated count 4.09 text: 3.80 - 5.30 10(6)/ mcL RBC 4.09 3.80 - 5.30 10(6) /mcL 10/11 6:00 AM CDT [facility] Not Available Not Available 10/19/2024 14:09:30 10/12/19 25 10/11/2024 CBC W Auto Diffe renti al panel - Blood hemoglobin [mass/volume ] in blood 11.5 g/dL low: 12g/dL high: 15.8g/ dL low HEMOG LOBIN (HGB) 11.5 (L) 12.0 - 15.8 g/dL 10/11 6:00 AM CDT [facility] Not Available Not Available 10/19/2024 14:09:30 10/12/19 25 10/11/2024 CBC W Auto Diffe renti al panel - Blood hematocrit [volume fraction] of blood by automated count 36.9 % low: 36%hig h: 47% HEMAT OCRIT (HCT) 36.9 36.0 - 47.0 % 10/11 6:00 AM CDT [facility] Not Available Not Available 10/19/2024 14:09:30 10/12/19 25 10/11/2024 CBC W Auto Diffe renti al panel - Blood MCV [entitic volume] by automated count 90.2 fL low: 82fLhi gh: 96fL MCV 90.2 82.0 - 96.0 fL 10/11 6:00 AM CDT [facility] Not Available Not Available 10/19/2024 14:09:30 10/12/19 25 10/11/2024 CBC W Auto Diffe renti al panel - Blood MCH [entitic mass] by automated count 28.1 pg low: 26pghi gh: 34pg MCH 28.1 26.0 - 34.0 pg 10/11 6:00 AM CDT [facility] Not Available Not Available 10/19/2024 14:09:30 10/12/19 25 10/11/2024 CBC W Auto Diffe renti al panel - Blood MCHC [mass/volume ] by automated count 31.2 g/dL low: 31g/dL high: 36g/dL MCHC 31.2 31.0 - 36.0 g/dL 10/11 6:00 AM CDT [facility] Not Available Not Available 10/19/2024 14:09:30 10/12/19 25 10/11/2024 CBC W Auto Diffe renti al panel - Blood platelets [#/volume] in blood 255 text: 140 - 440 10(3)/ mcL PLATE LET COUNT 255 140 - 440 10(3) /mcL 10/11 6:00 AM CDT [facility] Not Available Not Available 10/19/2024 14:09:30 10/12/19 25 10/11/2024 CBC W Auto Diffe renti al panel - Blood erythrocyte distribution width [ratio] by automated count 15.1 % low: 11.8%h igh: 15.5% RDW 15.1 11.8 - 15.5 % 10/11 6:00 AM CD[facility] Not Available Not Available 10/19/2024 14:09:30 10/12/19 25 10/11/2024 CBC W Auto Diffe renti al panel - Blood platelet mean volume [entitic volume] in blood by automated count 10.6 fL low: 9.7fLh igh: 12.4fL MPV 10.6 9.7 - 12.4 fL 10/11 6:00 AM CDT [facility] Not Available Not Available 10/19/2024 14:09:30 10/12/19 25 10/11/2024 CBC W Auto Diffe renti al panel - Blood neutrophils/ 100 leukocytes in blood by automated count 95 % low: 47%hig h: 73% high NEUTR OPHIL S 95.0 (H) 47.0 - 73.0 % 10/11 6:00 AM CDT [facility] Not Available Not Available 10/19/2024 14:09:30 10/12/19 25 10/11/2024 CBC W Auto Diffe renti al panel - Blood lymphocytes/ 100 leukocytes in blood by automated count 3.7 % low: 18%hig h: 42% low LYMPH OCYTE S 3.7 (L) 18.0 - 42.0 % 10/11 6:00 AM CDT [facility] Not Available Not Available 10/19/2024 14:09:30 10/12/19 25 10/11/2024 CBC W Auto Diffe renti al panel - Blood monocytes/10 0 leukocytes in blood by automated count 1.2 % low: 4%high : 12% low MONOC YTES 1.2 (L) 4.0 - 12.0 % 10/11 6:00 AM CDT [facility] Not Available Not Available 10/19/2024 14:09:30 10/12/19 25 10/11/2024 CBC W Auto Diffe renti al panel - Blood eosinophils/ 100 leukocytes in blood by automated count 0 % low: 0%high : 5% EOSIN OPHIL S 0.0 0.0 - 5.0 % 10/11 6:00 AM CDT [facility] Not Available Not Available 10/19/2024 14:09:30 10/12/19 25 10/11/2024 CBC W Auto Diffe renti al panel - Blood basophils/10 0 leukocytes in blood by automated count 0.1 % low: 0%high : 1% BASOP HILS 0.1 0.0 - 1.0 % 10/11 6:00 AM CDT [facility] Not Available Not Available 10/19/2024 14:09:30 10/12/19 25 10/11/2024 CBC W Auto Diffe renti al panel - Blood neutrophils [#/volume] in blood by automated count 14.26 text: 1.60 - 7.70 10(3)/ mcL high ABSOL EAGLE NEUTR OPHIL S 14.26 (H) 1.60 - 7.70 10(3) /mcL 10/11 6:00 AM CDT [facility] R LAB Not Available Not Available 10/19/2024 14:09:30 10/12/19 25 10/11/2024 CBC W Auto Diffe renti al panel - Blood lymphocytes [#/volume] in blood by automated count 0.55 text: 1.30 - 3.20 10(3)/ mcL low ABSOL EAGLE LYMPH OCYTE S 0.55 (L) 1.30 - 3.20 10(3) /mcL 10/11 6:00 AM CDT [facility] R LAB Not Available Not Available 10/19/2024 14:09:30 10/12/19 25 10/11/2024 CBC W Auto Diffe renti al panel - Blood monocytes [#/volume] in blood by automated count 0.18 text: 0.20 - 1.00 10(3)/ mcL low ABSOL EAGLE MONOC YTES 0.18 (L) 0.20 - 1.00 10(3) /mcL 10/11 6:00 AM CDT [facility] LAB Not Available Not Available 10/19/2024 14:09:30 10/12/19 25 10/11/2024 CBC W Auto Diffe renti al panel - Blood eosinophils [#/volume] in blood by automated count 0 text: 0.00 - 0.40 10(3)/ mcL ABSOL EAGLE EOSIN OPHIL 0.00 0.00 - 0.40 10(3) /mcL 10/11 6:00 AM CDT [facility] LAB Not Available Not Available 10/19/2024 14:09:30 10/12/19 25 10/11/2024 CBC W Auto Diffe renti al panel - Blood basophils [#/volume] in blood by automated count 0.01 text: 0.00 - 0.10 10(3)/ mcL ABSOL EAGLE BASOP HILS 0.01 0.00 - 0.10 10(3) /mcL 10/11 6:00 AM CDT [facility] Not Available Not Available 10/19/2024 14:09:30 10/12/19 25 10/11/2024 CBC W Auto Diffe renti al panel - Blood nucleated erythrocytes /100 leukocytes [ratio] in blood 0 NRBC PER 100 WBC 0 10/11 6:00 AM CDT [facility] LAB Not Available Not Available 10/19/2024 14:09:30 10/12/19 25 10/11/2024 CBC W Auto Diffe renti al panel - Blood fruit bar maker review of results Yes RESUL TS ARE CONSI STENT WITH PERIP HERAL SMEAR REVIE W Yes 10/11 6:00 AM CDT [facility] LAB Not Available [...] mmol/ L 10/11 5:36 AM CDT [facility] Not Available Not Available 10/19/2024 14:09:30 10/12/19 25 10/11/2024 Basic metab olic 2000 panel - Serum or Plasm a potassium [moles/volum e] in serum or plasma 5.1 mmol/ L low: 3.5mmo l/Lhig h: 5.1mmo l/L POTAS SIUM 5.1 3.5 - 5.1 mmol/ L 10/11 5:36 AM CDT [facility] Not Available Not Available 10/19/2024 14:09:30 10/12/19 25 10/11/2024 Basic metab olic 1999 panel - Serum or Plasm a chloride [moles/volum e] in serum or plasma 109 mmol/ L low: 98mmol /Lhigh : 107mmo l/L high CHLOR ISABEL 109 (H) 98 - 107 mmol/ L 10/11 5:36 AM CDT [facility] Not Available Not Available 10/19/2024 14:09:30 10/12/19 25 10/11/2024 Basic metab olic 1999 panel - Serum or Plasm a carbon dioxide, total [moles/volum e] in serum or plasma 23 mmol/ L low: 22mmol /Lhigh : 30mmol /L CO2, VENOU S 23 22 - 30 mmol/ L 10/11 5:36 AM CDT [facility] Not Available Not Available 10/19/2024 14:09:30 10/12/19 25 10/11/2024 Basic metab olic 1999 panel - Serum or Plasm a anion gap in serum or plasma 10.1 mmol/ L high: 18mmol /L ANION GAP 10.1 <18.0 mmol/ L 10/11 5:36 AM CDT [facility] Not Available Not Available 10/19/2024 14:09:30 10/12/19 25 10/11/2024 Basic metab olic 1999 panel - Serum or Plasm a glucose [mass/volume ] in serum or plasma 87 mg/dL low: 70mg/d Lhigh: 99mg/d L GLUCO SE 87 70 - 99 mg/dL 10/11 5:36 AM CDT [facility] Not Available Not Available 10/19/2024 14:09:30 10/12/19 25 10/11/2024 Basic metab olic 1999 panel - Serum or Plasm a urea nitrogen [mass/volume ] in serum or plasma 28 mg/dL low: 10mg/d Lhigh: 20mg/d L high BUN 28 (H) 10 - 20 mg/dL 10/11 5:36 AM CDT [facility] [employer] R [facility] Not Available Not Available 10/19/2024 14:09:30 10/12/19 25 10/11/2024 Basic metab olic 1999 panel - Serum or Plasm a creatinine [mass/volume ] in serum or plasma 1.19 mg/dL low: 0.6mg/ dLhigh : 1mg/dL high CREAT ININE , BLOOD 1.19 (H) 0.60 - 1.00 mg/dL 10/11 5:36 AM CDT [facility] [employer] [facility] Not Available Not Available 10/19/2024 14:09:30 10/12/19 25 10/11/2024 Basic Noise Freaks ic 1999 panel - Serum or Plasm a urea nitrogen/cre atinine [mass ratio] in serum or plasma 24 text: 12 - 20 ratio high BUN/C REATI NINE RATIO 24 (H) 12 - 20 ratio 10/11 5:36 AM CDT [facility] [employer] LAB Not Available Not Available 10/19/2024 14:09:30 10/12/19 25 10/11/2024 Basic No[employer] Freaks olic 1999 panel - Serum or Plasm a calcium [mass/volume ] in serum or plasma 8.6 mg/dL low: 8.7mg/ dLhigh : 10.5mg /dL low CALCI UM 8.6 (L) 8.7 - 10.5 mg/dL 10/11 5:36 AM CDT [facility] [employer] [facility] LAB Not Available Not Available 10/19/2024 14:09:30 10/12/19 25 10/11/2024 Basic Noise Freaks olic 2000 panel - Serum or Plasm a glomerular filtration rate/1.73 sq M.predicted among non-blacks [volume rate/area] in serum, plasma or blood by creatinine-b ased formula (MDRD) 51 low: 60 low GFR, ESTIM ATED 51 (L) >=60 10/11 5:36 AM CDT [facility] [employer] LAB Not Available Not Available 10/19/2024 14:09:30 10/12/19 25 10/11/2024 Basic metab olic 2000 panel - Serum or Plasm a glomerular filtration rate/1.73 sq M.predicted among blacks [volume rate/area] in serum, plasma or blood by creatinine-b ased formula (MDRD) 56 low: 60 low GFR, EST. AFRIC AN 56 (L) >=60 10/11 5:36 AM CDT [facility] [facility] Not Available Not Available 10/19/2024 14:09:30 10/12/19 25 10/11/2024 Basic metab olic 2000 panel - Serum or Plasm a glomerular filtration rate/1.73 sq M.predicted among non-blacks [volume rate/area] in serum, plasma or blood by creatinine-b ased formula (MDRD) 46 low: 60 low GFR, EST. NONAF RICAN 46 (L) >=60 10/11 5:36 AM CDT [facility] Not Available Not Available 10/19/2024 [...] 5 ng/mL 10/23 11:43 AM CDT [facility] [employer] [facility] Not Available Not Available 10/27/2024 [...] tommy, Error 10/23 1:09 AM CDT [facility] Not Available Not [...] Negat tommy 10/23 1:09 AM CDT [facility] Not Available [...] Negat tommy 10/23 1:09 AM CDT [facility] [facility] Not Available Not Available 10/23/2024 12:13:15 [...] Detec joão) 10/23 1:09 AM CDT [facility] Not Available Not Available 10/23/2024 12:13:15 [...] Cannu la 10/23 12:10 AM CDT [facility] Not Available Not Available 10/23/2024 12:13:15 10/24/19 25 10/23/2024 Gas panel - Arter ial blood pH of arterial blood 7.33 low: 7.35hi gh: 7.45 low PH ARTER IAL 7.33 (L) 7.35 - 7.45 10/23 12:10 AM [facility] Not Available Not Available 10/23/2024 12:13:15 10/24/1910/23/2024 Gas panel - Arter ial blood carbon dioxide [partial pressure] in arterial blood 54 text: 35 - 45 mmHg high PC02 (SKY RIAL) 54 (H) 35 - 45 mmHg 10/23 12:10 AM CDT [facility] Not Available Not Available 10/23/2024 12:13:15 10/24/1910/23/2024 Gas panel - Arter ial blood oxygen [partial pressure] in arterial blood 61 text: 75 - 100 mmHg low PO2 (SKY RIAL) 61 (L) 75 - 100 mmHg 10/23 12:10 AM CDT [facility] [facility] Not Available Not Available 10/23/2024 12:13:15 10/24/1910/23/2024 Gas panel - Arter ial blood oxygen saturation in arterial blood 86 % low: 94%hig h: 100% low O2 SAT ART, MEASU RED 86 (L) 94 - 100 % 10/23 12:10 AM CDT [facility] Not Available Not Available 10/23/2024 12:13:15 10/24/1910/23/2024 Gas panel - Arter ial blood base arterial 2.2 mmol/ L low: -2mmol /Lhigh : 2mmol/ L high BASE ARTER IAL 2.2 (H) -2.0 - 2.0 mmol/ L 10/23 12:10 AM CDT [facility] Not Available Not Available 10/23/2024 12:13:15 10/24/19 25 10/23/2024 Gas panel - Arter ial blood bicarbonate [moles/volum e] in blood 28.6 mmol/ L low: 22mmol /Lhigh : 26mmol /L high BICAR BONAT E 28.6 (H) 22.0 - 26.0 mmol/ L 10/23 12:10 AM CDT [facility] Not Available Not Available 10/23/2024 12:13:15 10/24/19 25 10/23/2024 Gas panel - Arter ial blood arterial patency wrist artery --pre arterial puncture Non-Ra dial Site LULU 'S TEST RESUL TS Non-R adial Site 10/23 12:10 AM CDT [facility] Not Available Not Available 10/23/2024 12:13:15 10/24/19 25 10/23/2024 Gas panel - Arter ial blood carboxyhemog lobin/hemogl obin.total in blood 1 % low: 0%high : 5% CARBO XYHEM OGLOB IN 1.0 0.0 - 5.0 % 10/23 12:10 AM CDT [facility] Not Available Not Available 10/23/2024 12:13:15 10/24/19 25 10/23/2024 Gas panel - Arter ial blood methemoglobi n/hemoglobin .total in blood 0.5 % low: 0%high : 1.5% METHE MOGLO BIN 0.5 0.0 - 1.5 % 10/23 12:10 AM CDT [facility] Not Available Not Available [...] 12.00 10(3) /mcL 10/23 12:09 AM CDT [facility] Not Available Not Available 10/23/2024 12:13:15 10/24/19 25 10/23/2024 CBC W Auto Diffe renti al panel - Blood erythrocytes [#/volume] in blood by automated count 4.36 text: 3.80 - 5.30 10(6)/ mcL RBC 4.36 3.80 - 5.30 10(6) /mcL 10/23 12:09 AM [facility] Not Available Not Available 10/23/2024 12:13:15 10/24/1910/23/2024 CBC W Auto Diffe renti al panel - Blood hemoglobin [mass/volume ] in blood 12.3 g/dL low: 12g/dL high: 15.8g/ dL HEMOG LOBIN (HGB) 12.3 12.0 - 15.8 g/dL 10/23 12:09 AM CD[facility] Not Available Not Available 10/23/2024 12:13:15 10/24/1910/23/2024 CBC W Auto Diffe renti al panel - Blood hematocrit [volume fraction] of blood by automated count 40 % low: 36%hig h: 47% HEMAT OCRIT (HCT) 40.0 36.0 - 47.0 % 10/23 12:09 AM CD[facility] Not Available Not Available 10/23/2024 12:13:15 10/24/19 25 10/23/2024 CBC W Auto Diffe renti al panel - Blood MCV [entitic volume] by automated count 91.7 fL low: 82fLhi gh: 96fL MCV 91.7 82.0 - 96.0 fL 10/23 12:09 AM CD[facility] Not Available Not Available 10/23/2024 12:13:15 10/24/19 25 10/23/2024 CBC W Auto Diffe renti al panel - Blood MCH [entitic mass] by automated count 28.2 pg low: 26pghi gh: 34pg MCH 28.2 26.0 - 34.0 pg 10/23 12:09 AM CDT [facility] Not Available Not Available 10/23/2024 12:13:15 10/24/19 25 10/23/2024 CBC W Auto Diffe renti al panel - Blood MCHC [mass/volume ] by automated count 30.8 g/dL low: 31g/dL high: 36g/dL low MCHC 30.8 (L) 31.0 - 36.0 g/dL 10/23 12:09 AM CDT [facility] Not Available Not Available 10/23/2024 12:13:15 10/24/19 25 10/23/2024 CBC W Auto Diffe renti al panel - Blood platelets [#/volume] in blood 274 text: 140 - 440 10(3)/ mcL PLATE LET COUNT 274 140 - 440 10(3) /mcL 10/23 12:09 AM CDT [facility] Not Available Not Available 10/23/2024 12:13:15 10/24/19 25 10/23/2024 CBC W Auto Diffe renti al panel - Blood erythrocyte distribution width [ratio] by automated count 15.3 % low: 11.8%h igh: 15.5% RDW 15.3 11.8 - 15.5 % 10/23 12:09 AM CDT [facility] Not Available Not Available 10/23/2024 12:13:15 10/24/19 25 10/23/2024 CBC W Auto Diffe renti al panel - Blood platelet mean volume [entitic volume] in blood by automated count 9.7 fL low: 9.7fLh igh: 12.4fL MPV 9.7 9.7 - 12.4 fL 10/23 12:09 AM CDT [facility] Not Available Not Available 10/23/2024 12:13:15 10/24/19 25 10/23/2024 CBC W Auto Diffe renti al panel - Blood neutrophils/ 100 leukocytes in blood by automated count 87 % low: 47%hig h: 73% high NEUTR OPHIL S 87.0 (H) 47.0 - 73.0 % 10/23 12:09 AM CDT [facility] Not Available Not Available 10/23/2024 12:13:15 10/24/19 25 10/23/2024 CBC W Auto Diffe renti al panel - Blood lymphocytes/ 100 leukocytes in blood by automated count 6.3 % low: 18%hig h: 42% low LYMPH OCYTE S 6.3 (L) 18.0 - 42.0 % 10/23 12:09 AM CDT [facility] Not Available Not Available 10/23/2024 12:13:15 10/24/19 25 10/23/2024 CBC W Auto Diffe renti al panel - Blood monocytes/10 0 leukocytes in blood by automated count 5.6 % low: 4%high : 12% MONOC YTES 5.6 4.0 - 12.0 % 10/23 12:09 AM CDT [facility] Not Available Not Available 10/23/2024 12:13:15 10/24/19 25 10/23/2024 CBC W Auto Diffe renti al panel - Blood eosinophils/ 100 leukocytes in blood by automated count 1 % low: 0%high : 5% EOSIN OPHIL S 1.0 0.0 - 5.0 % 10/23 12:09 AM CDT [facility] Not Available Not Available 10/23/2024 12:13:15 10/24/19 25 10/23/2024 CBC W Auto Diffe renti al panel - Blood basophils/10 0 leukocytes in blood by automated count 0.1 % low: 0%high : 1% BASOP HILS 0.1 0.0 - 1.0 % 10/23 12:09 AM CDT [facility] Not Available Not Available 10/23/2024 12:13:15 10/24/19 25 10/23/2024 CBC W Auto Diffe renti al panel - Blood neutrophils [#/volume] in blood by automated count 9.12 text: 1.60 - 7.70 10(3)/ mcL high ABSOL EAGLE NEUTR OPHIL S 9.12 (H) 1.60 - 7.70 10(3) /mcL 10/23 12:09 AM CDT [facility] Not Available Not Available 10/23/2024 12:13:15 10/24/19 25 10/23/2024 CBC W Auto Diffe renti al panel - Blood lymphocytes [#/volume] in blood by automated count 0.66 text: 1.30 - 3.20 10(3)/ mcL low ABSOL EAGLE LYMPH OCYTE S 0.66 (L) 1.30 - 3.20 10(3) /mcL 10/23 12:09 AM CDT [facility] Not Available Not Available 10/23/2024 12:13:15 10/24/19 25 10/23/2024 CBC W Auto Diffe renti al panel - Blood monocytes [#/volume] in blood by automated count 0.59 text: 0.20 - 1.00 10(3)/ mcL ABSOL EAGLE MONOC YTES 0.59 0.20 - 1.00 10(3) /mcL 10/23 12:09 AM CDT [facility] Not Available Not Available 10/23/2024 12:13:15 10/24/19 25 10/23/2024 CBC W Auto Diffe renti al panel - Blood eosinophils [#/volume] in blood by automated count 0.1 text: 0.00 - 0.40 10(3)/ mcL ABSOL EAGLE EOSIN OPHIL 0.10 0.00 - 0.40 10(3) /mcL 10/23 12:09 AM CDT [facility] Not Available Not Available 10/23/2024 12:13:15 10/24/19 25 10/23/2024 CBC W Auto Diffe renti al panel - Blood basophils [#/volume] in blood by automated count 0.01 text: 0.00 - 0.10 10(3)/ mcL ABSOL EAGLE BASOP HILS 0.01 0.00 - 0.10 10(3) /mcL 10/23 12:09 AM CDT [facility] Not Available Not Available 10/23/2024 12:13:15 10/24/19 25 10/23/2024 CBC W Auto Diffe renti al panel - Blood nucleated erythrocytes /100 leukocytes [ratio] in blood 0 NRBC PER 100 WBC 0 10/23 12:09 AM CD[facility] Not [...] 2.0 mmol/ L 10/23 12:25 AM CDT [facility] Not Available Not Available 10/23/2024 [...] 145 mmol/ L 10/23 12:28 AM CDT [facility] Not Available Not Available 10/23/2024 12:13:15 10/24/19 25 10/23/2024 Compr ehens tommy metab olic 2000 panel - Serum or Plasm a potassium [moles/volum e] in serum or plasma 4.1 mmol/ L low: 3.5mmo l/Lhig h: 5.1mmo l/L POTAS SIUM 4.1 3.5 - 5.1 mmol/ L 10/23 12:28 AM CDT [facility] Not Available Not Available 10/23/2024 12:13:15 10/24/19 25 10/23/2024 Compr ehens tommy metab olic 1999 panel - Serum or Plasm a chloride [moles/volum e] in serum or plasma 103 mmol/ L low: 98mmol /Lhigh : 107mmo l/L CHLOR ISABEL 103 98 - 107 mmol/ L 10/23 12:28 AM CDT [facility] Not Available Not Available 10/23/2024 12:13:15 10/24/19 25 10/23/2024 Compr ehens tommy metab olic 1999 panel - Serum or Plasm a carbon dioxide, total [moles/volum e] in serum or plasma 26 mmol/ L low: 22mmol /Lhigh : 30mmol /L CO2, VENOU S 26 22 - 30 mmol/ L 10/23 12:28 AM CDT [facility] Not Available Not Available 10/23/2024 12:13:15 10/24/19 25 10/23/2024 Compr ehens tommy metab olic 1999 panel - Serum or Plasm a anion gap in serum or plasma 13.1 mmol/ L high: 18mmol /L ANION GAP 13.1 <18.0 mmol/ L 10/23 12:28 AM CDT [facility] Not Available Not Available 10/23/2024 12:13:15 10/24/19 25 10/23/2024 Compr ehens tommy metab olic 1999 panel - Serum or Plasm a glucose [mass/volume ] in serum or plasma 123 mg/dL low: 70mg/d Lhigh: 99mg/d L high GLUCO SE 123 (H) 70 - 99 mg/dL 10/23 12:28 AM CDT [facility] Not Available Not Available 10/23/2024 12:13:15 10/24/19 25 10/23/2024 Compr ehens tommy metab olic 1999 panel - Serum or Plasm a urea nitrogen [mass/volume ] in serum or plasma 9 mg/dL low: 10mg/d Lhigh: 20mg/d L low BUN 9 (L) 10 - 20 mg/dL 10/23 12:28 AM CDT [facility] Not Available Not Available 10/23/2024 12:13:15 10/24/19 25 10/23/2024 Compr ehens tommy metab olic 2000 panel - Serum or Plasm a creatinine [mass/volume ] in serum or plasma 1.13 mg/dL low: 0.6mg/ dLhigh : 1mg/dL high CREAT ININE , BLOOD 1.13 (H) 0.60 - 1.00 mg/dL 10/23 12:28 AM CDT [facility] Not Available Not Available 10/23/2024 12:13:15 10/24/19 25 10/23/2024 Compr ehens tommy metab olic 2000 panel - Serum or Plasm a urea nitrogen/cre atinine [mass ratio] in serum or plasma 8 text: 12 - 20 ratio low BUN/C REATI NINE RATIO 8 (L) 12 - 20 ratio 10/23 12:28 AM CDT [facility] Not Available Not Available 10/23/2024 12:13:15 10/24/19 25 10/23/2024 Compr ehens tommy metab olic 2000 panel - Serum or Plasm a protein [mass/volume ] in serum or plasma 7.6 g/dL low: 6g/dLh igh: 8g/dL TOTAL PROTE IN 7.6 6.0 - 8.0 g/dL 10/23 12:28 AM CDT [facility] Not Available Not Available 10/23/2024 12:13:15 10/24/19 25 10/23/2024 Compr ehens tommy metab olic 2000 panel - Serum or Plasm a albumin [mass/volume ] in serum or plasma 4.2 g/dL low: 3.5g/d Lhigh: 5g/dL ALBUM IN 4.2 3.5 - 5.0 g/dL 10/23 12:28 AM CDT [facility] Not Available Not Available 10/23/2024 12:13:15 10/24/19 25 10/23/2024 Compr ehens tommy metab olic 1999 panel - Serum or Plasm a albumin/glob ulin [mass ratio] in serum or plasma 1.2 low: 1high: 2.2 A/G RATIO 1.2 1.0 - 2.2 10/23 12:28 AM CDT [facility] Not Available Not Available 10/23/2024 12:13:15 10/24/19 25 10/23/2024 Compr ehens tommy metab olic 2000 panel - Serum or Plasm a calcium [mass/volume ] in serum or plasma 9.6 mg/dL low: 8.7mg/ dLhigh : 10.5mg /dL CALCI UM 9.6 8.7 - 10.5 mg/dL 10/23 12:28 AM CDT [facility] Not Available Not Available 10/23/2024 12:13:15 10/24/19 25 10/23/2024 Compr Net Elementens tommy metab olic 2000 panel - Serum or Plasm a bilirubin.to godwin [mass/volume ] in serum or plasma 0.4 mg/dL low: 0.2mg/ dLhigh : 1.2mg/ dL T BILI 0.4 0.2 - 1.2 mg/dL 10/23 12:28 AM CDT [facility] Not Available Not Available 10/23/2024 [...] 17 <56 U/L 10/23 12:28 AM CDT [facility] Not Available Not Available 10/23/2024 12:13:15 10/24/19 25 10/23/2024 Compr ehens tommy metab olic 1999 panel - Serum or Plasm a alkaline phosphatase [enzymatic activity/vol ume] in serum or plasma 148 U/L low: 40U/Lh igh: 150U/L ALKAL INE PHOSP HATAS E 148 40 - 150 U/L 10/23 12:28 AM CD[facility] Not Available Not Available 10/23/2024 12:13:15 10/24/19 25 10/23/2024 Compr ehens tommy metab olic 1999 panel - Serum or Plasm a glomerular filtration rate/1.73 sq M.predicted [volume rate/area] in serum, plasma or blood by creatinine-b ased formula (CKD-epi 2020) 55 low: 60 low GFR, ESTIM ATED 55 (L) >=60 10/23 12:28 AM CD[facility] Not Available Not Available 10/23/2024 12:13:15 10/24/19 25 10/23/2024 Compr ehens tommy metab olic 1999 panel - Serum or Plasm a glomerular filtration rate/1.73 sq M.predicted among blacks [volume rate/area] in serum, plasma or blood by creatinine-b ased formula (MDRD) 59 low: 60 low GFR, EST. AFRIC AN 59 (L) >=60 10/23 12:28 AM CDT [facility] Not Available Not Available 10/23/2024 12:13:15 10/24/19 25 10/23/2024 Compr ehens tommy metab olic 2000 panel - Serum or Plasm a glomerular filtration rate/1.73 sq M.predicted among non-blacks [volume rate/area] in serum, plasma or blood by creatinine-b ased formula (MDRD) 49 low: 60 low GFR, EST. NONAF RICAN 49 (L) >=60 10/23 12:28 AM CDT [facility] Not Available Not [...] 10(3) /mcL 10/26 8:05 PM CDT [facility] Not Available Not Available 10/27/2024 13:50:12 10/27/19 25 10/26/2024 CBC W Auto Diffe renti al panel - Blood erythrocytes [#/volume] in blood by automated count 4.36 text: 3.80 - 5.30 10(6)/ mcL RBC 4.36 3.80 - 5.30 10(6) /mcL 10/26 8:05 PM CDT [facility] Not Available Not Available 10/27/2024 13:50:12 10/27/19 25 10/26/2024 CBC W Auto Diffe renti al panel - Blood hemoglobin [mass/volume ] in blood 12.1 g/dL low: 12g/dL high: 15.8g/ dL HEMOG LOBIN (HGB) 12.1 12.0 - 15.8 g/dL 10/26 8:05 PM CDT [facility] Not Available Not Available 10/27/2024 13:50:12 10/27/19 25 10/26/2024 CBC W Auto Diffe renti al panel - Blood hematocrit [volume fraction] of blood by automated count 40.2 % low: 36%hig h: 47% HEMAT OCRIT (HCT) 40.2 36.0 - 47.0 % 10/26 8:05 PM CDT [facility] Not Available Not Available 10/27/2024 13:50:12 10/27/19 25 10/26/2024 CBC W Auto Diffe renti al panel - Blood MCV [entitic volume] by automated count 92.2 fL low: 82fLhi gh: 96fL MCV 92.2 82.0 - 96.0 fL 10/26 8:05 PM CDT [facility] Not Available Not Available 10/27/2024 13:50:12 10/27/19 25 10/26/2024 CBC W Auto Diffe renti al panel - Blood MCH [entitic mass] by automated count 27.8 pg low: 26pghi gh: 34pg MCH 27.8 26.0 - 34.0 pg 10/26 8:05 PM CDT [facility] Not Available Not Available 10/27/2024 13:50:12 10/27/19 25 10/26/2024 CBC W Auto Diffe renti al panel - Blood MCHC [mass/volume ] by automated count 30.1 g/dL low: 31g/dL high: 36g/dL low MCHC 30.1 (L) 31.0 - 36.0 g/dL 10/26 8:05 PM CDT [facility] Not Available Not Available 10/27/2024 13:50:12 10/27/19 25 10/26/2024 CBC W Auto Diffe renti al panel - Blood platelets [#/volume] in blood 296 text: 140 - 440 10(3)/ mcL PLATE LET COUNT 296 140 - 440 10(3) /mcL 10/26 8:05 PM CDT [facility] Not Available Not Available 10/27/2024 13:50:12 03/27/10/26/2024 CBC W Auto Diffe renti al panel - Blood erythrocyte distribution width [ratio] by automated count 16 % low: 11.8%h igh: 15.5% high RDW 16.0 (H) 11.8 - 15.5 % 10/26 8:05 PM CDT [facility] Not Available Not Available 10/27/2024 13:50:12 10/27/19 25 10/26/2024 CBC W Auto Diffe renti al panel - Blood platelet mean volume [entitic volume] in blood by automated count 10 fL low: 9.7fLh igh: 12.4fL MPV 10.0 9.7 - 12.4 fL 10/26 8:05 PM CDT [facility] Not Available Not Available 10/27/2024 13:50:12 10/27/19 25 10/26/2024 CBC W Auto Diffe renti al panel - Blood neutrophils/ 100 leukocytes in blood by automated count 91.6 % low: 47%hig h: 73% high NEUTR OPHIL S 91.6 (H) 47.0 - 73.0 % 10/26 8:05 PM CDT [facility] Not Available Not Available 10/27/2024 13:50:12 10/27/19 25 10/26/2024 CBC W Auto Diffe renti al panel - Blood lymphocytes/ 100 leukocytes in blood by automated count 4.4 % low: 18%hig h: 42% low LYMPH OCYTE S 4.4 (L) 18.0 - 42.0 % 10/26 8:05 PM CDT [facility] Not Available Not Available 10/27/2024 13:50:12 10/27/19 25 10/26/2024 CBC W Auto Diffe renti al panel - Blood monocytes/10 0 leukocytes in blood by automated count 3.8 % low: 4%high : 12% low MONOC YTES 3.8 (L) 4.0 - 12.0 % 10/26 8:05 PM CDT [facility] Not Available Not Available 10/27/2024 13:50:12 10/27/19 25 10/26/2024 CBC W Auto Diffe renti al panel - Blood eosinophils/ 100 leukocytes in blood by automated count 0 % low: 0%high : 5% EOSIN OPHIL S 0.0 0.0 - 5.0 % 10/26 8:05 PM CDT [facility] Not Available Not Available 10/27/2024 13:50:12 10/27/19 25 10/26/2024 CBC W Auto Diffe renti al panel - Blood basophils/10 0 leukocytes in blood by automated count 0.2 % low: 0%high : 1% BASOP HILS 0.2 0.0 - 1.0 % 10/26 8:05 PM CDT [facility] Not Available Not Available 10/27/2024 13:50:12 10/27/19 25 10/26/2024 CBC W Auto Diffe renti al panel - Blood neutrophils [#/volume] in blood by automated count 10.85 text: 1.60 - 7.70 10(3)/ mcL high ABSOL EAGLE NEUTR OPHIL S 10.85 (H) 1.60 - 7.70 10(3) /mcL 10/26 8:05 PM CDT [facility] R LAB Not Available Not Available 10/27/2024 13:50:12 10/27/19 25 10/26/2024 CBC W Auto Diffe renti al panel - Blood lymphocytes [#/volume] in blood by automated count 0.52 text: 1.30 - 3.20 10(3)/ mcL low ABSOL EAGLE LYMPH OCYTE S 0.52 (L) 1.30 - 3.20 10(3) /mcL 10/26 8:05 PM CDT [facility] Not Available Not Available 10/27/2024 13:50:12 10/27/19 25 10/26/2024 CBC W Auto Diffe renti al panel - Blood monocytes [#/volume] in blood by automated count 0.45 text: 0.20 - 1.00 10(3)/ mcL ABSOL EAGLE MONOC YTES 0.45 0.20 - 1.00 10(3) /mcL 10/26 8:05 PM CDT [facility] Not Available Not Available 10/27/2024 13:50:12 10/27/19 25 10/26/2024 CBC W Auto Diffe renti al panel - Blood eosinophils [#/volume] in blood by automated count 0 text: 0.00 - 0.40 10(3)/ mcL ABSOL EAGLE EOSIN OPHIL 0.00 0.00 - 0.40 10(3) /mcL 10/26 8:05 PM CDT [facility] Not Available Not Available 10/27/2024 13:50:12 10/27/19 25 10/26/2024 CBC W Auto Diffe renti al panel - Blood basophils [#/volume] in blood by automated count 0.02 text: 0.00 - 0.10 10(3)/ mcL ABSOL EAGLE BASOP HILS 0.02 0.00 - 0.10 10(3) /mcL 10/26 8:05 PM CDT [facility] Not Available Not Available 10/27/2024 13:50:12 10/27/19 25 10/26/2024 CBC W Auto Diffe renti al panel - Blood nucleated erythrocytes /100 leukocytes [ratio] in blood 0 NRBC PER 100 WBC 0 10/26 8:05 PM CDT [facility] Not Available Not Available 10/27/2024 13:50:12 10/27/19 25 10/26/2024 CBC W Auto Diffe renti al panel - Blood fruit bar maker review of results Yes RESUL TS ARE CONSI STENT WITH PERIP HERAL SMEAR REVIE W Yes 10/26 8:05 PM CDT [facility] Not Available Not Available 10/27/2024 13:50:12 10/27/19 25 10/26/2024 CBC W Auto Diffe renti al panel - Blood erythrocytes [morphology] in blood by automated count Yes RBC MORPH OLOGY CONSI STENT WITH INDIC ES Yes 10/26 8:05 PM CDT [facility] Not Available [...] 2.6 mg/dL 10/26 7:52 PM CDT [facility] Not Available [...] mmol/ L 10/26 7:52 PM CDT [facility] Not Available Not Available 10/27/2024 13:50:12 10/27/19 25 10/26/2024 Compr ehens tommy metab olic 1999 panel - Serum or Plasm a potassium [moles/volum e] in serum or plasma 4.5 mmol/ L low: 3.5mmo l/Lhig h: 5.1mmo l/L POTAS SIUM 4.5 3.5 - 5.1 mmol/ L 10/26 7:52 PM CDT [facility] Not Available Not Available 10/27/2024 13:50:12 10/27/19 25 10/26/2024 Compr ehens tommy metab olic 1999 panel - Serum or Plasm a chloride [moles/volum e] in serum or plasma 102 mmol/ L low: 98mmol /Lhigh : 107mmo l/L CHLOR ISABEL 102 98 - 107 mmol/ L 10/26 7:52 PM CDT [facility] Not Available Not Available 10/27/2024 13:50:12 10/27/19 25 10/26/2024 Compr ehens tommy metab olic 1999 panel - Serum or Plasm a carbon dioxide, total [moles/volum e] in serum or plasma 28 mmol/ L low: 22mmol /Lhigh : 30mmol /L CO2, VENOU S 28 22 - 30 mmol/ L 10/26 7:52 PM CDT [facility] Not Available Not Available 10/27/2024 13:50:12 10/27/19 25 10/26/2024 Compr ehens tommy metab olic 1999 panel - Serum or Plasm a anion gap in serum or plasma 14.5 mmol/ L high: 18mmol /L ANION GAP 14.5 <18.0 mmol/ L 10/26 7:52 PM CDT [facility] Not Available Not Available 10/27/2024 13:50:12 10/27/19 25 10/26/2024 Compr ehens tommy metab olic 1999 panel - Serum or Plasm a glucose [mass/volume ] in serum or plasma 172 mg/dL low: 70mg/d Lhigh: 99mg/d L high GLUCO SE 172 (H) 70 - 99 mg/dL 10/26 7:52 PM CDT [facility] Not Available Not Available 10/27/2024 13:50:12 10/27/19 25 10/26/2024 Compr ehens tommy metab olic 2000 panel - Serum or Plasm a urea nitrogen [mass/volume ] in serum or plasma 31 mg/dL low: 10mg/d Lhigh: 20mg/d L high BUN 31 (H) 10 - 20 mg/dL 10/26 7:52 PM CDT [facility] Not Available Not Available 10/27/2024 13:50:12 10/27/19 25 10/26/2024 Compr ehens tommy metab olic 1999 panel - Serum or Plasm a creatinine [mass/volume ] in serum or plasma 1.24 mg/dL low: 0.6mg/ dLhigh : 1mg/dL high CREAT ININE , BLOOD 1.24 (H) 0.60 - 1.00 mg/dL 10/26 7:52 PM CDT [facility] Not Available Not Available 10/27/2024 13:50:12 10/27/19 25 10/26/2024 Compr ehens tommy metab olic 1999 panel - Serum or Plasm a urea nitrogen/cre atinine [mass ratio] in serum or plasma 25 text: 12 - 20 ratio high BUN/C REATI NINE RATIO 25 (H) 12 - 20 ratio 10/26 7:52 PM CDT [facility] Not Available Not Available 10/27/2024 13:50:12 10/27/19 25 10/26/2024 Compr ehens tommy metab olic 1999 panel - Serum or Plasm a protein [mass/volume ] in serum or plasma 7.2 g/dL low: 6g/dLh igh: 8g/dL TOTAL PROTE IN 7.2 6.0 - 8.0 g/dL 10/26 7:52 PM CDT [facility] Not Available Not Available 10/27/2024 13:50:12 10/27/19 25 10/26/2024 Compr ehens tommy metab olic 1999 panel - Serum or Plasm a albumin [mass/volume ] in serum or plasma 4.1 g/dL low: 3.5g/d Lhigh: 5g/dL ALBUM IN 4.1 3.5 - 5.0 g/dL 10/26 7:52 PM CDT [facility] Not Available Not Available 10/27/2024 13:50:12 10/27/19 25 10/26/2024 Compr ehens tommy metab olic 2000 panel - Serum or Plasm a albumin/glob ulin [mass ratio] in serum or plasma 1.3 low: 1high: 2.2 A/G RATIO 1.3 1.0 - 2.2 10/26 7:52 PM CDT [facility] Not Available Not Available 10/27/2024 13:50:12 10/27/19 25 10/26/2024 Compr ehens tommy metab olic 1999 panel - Serum or Plasm a calcium [mass/volume ] in serum or plasma 9.3 mg/dL low: 8.7mg/ dLhigh : 10.5mg /dL CALCI UM 9.3 8.7 - 10.5 mg/dL 10/26 7:52 PM CDT [facility] LAB Not Available Not Available 10/27/2024 13:50:12 10/27/1910/26/2024 Compr ens tommy metab ic 1999 panel - Serum or Plasm a bilirubin.to godwin [mass/volume ] in serum or plasma 0.3 mg/dL low: 0.2mg/ dLhigh : 1.2mg/ dL T BILI 0.3 0.2 - 1.2 mg/dL 10/26 7:52 PM CDT [facility] LAB Not Available Not Available 10/27/2024 13:50:12 10/27/19 25 10/26/2024 Compr Net Element[employer] tommy metab olic 1999 panel - Serum or Plasm a aspartate aminotransfe rase [enzymatic activity/vol ume] in serum or plasma 13 U/L high: 43U/L SGOT (AST) 13 <43 U/L 10/26 7:52 PM CDT [facility] [employer] Atari[employer] R LAB Not Available Not Available 10/27/2024 13:50:12 10/27/19 25 10/26/2024 Compr Net [employer] tommy metab olic 1999 panel - Serum or Plasm a alanine aminotransfe rase [enzymatic activity/vol ume] in serum or plasma 13 U/L high: 56U/L SGPT (ALT) 13 <56 U/L 10/26 7:52 PM CDT [facility] Show[employer] R LAB Not Available Not Available 10/27/2024 13:50:12 10/27/19 25 10/26/2024 Compr Net [employer] tommy metab olic 1999 panel - Serum or Plasm a alkaline phosphatase [enzymatic activity/vol ume] in serum or plasma 116 U/L low: 40U/Lh igh: 150U/L ALKAL INE PHOSP HATAS E 116 40 - 150 U/L 10/26 7:52 PM CDT [facility] [employer] Atari[employer] R LAB Not Available Not Available 10/27/2024 13:50:12 10/27/19 25 10/26/2024 Compr ehens tommy metab olic 1999 panel - Serum or Plasm a glomerular filtration rate/1.73 sq M.predicted [volume rate/area] in serum, plasma or blood by creatinine-b ased formula (CKD-epi 2020) 49 low: 60 low GFR, ESTIM ATED 49 (L) >=60 10/26 7:52 PM CDT [facility] Domain Media[employer] R LAB Not Available Not Available 10/27/2024 13:50:12 10/27/19 25 10/26/2024 Compr Net [employer] tommy metab olic 1999 panel - Serum or Plasm a glomerular filtration rate/1.73 sq M.predicted among blacks [volume rate/area] in serum, plasma or blood by creatinine-b ased formula (MDRD) 53 low: 60 low GFR, EST. AFRIC AN 53 (L) >=60 10/26 7:52 PM CDT [facility] [employer] R LAB Not Available Not Available 10/27/2024 13:50:12 10/27/19 25 10/26/2024 Compr Net [employer] tommy metab olic 2000 panel - Serum or Plasm a glomerular filtration rate/1.73 sq M.predicted among non-blacks [volume rate/area] in serum, plasma or blood by creatinine-b ased formula (MDRD) 44 low: 60 low GFR, EST. NONAF RICAN 44 (L) >=60 10/26 7:52 PM CDT [facility] [employer] At[employer] R LAB Not Available Not Available 10/27/2024 [...] <100 pg/mL 10/26 8:10 PM CDT [facility]orn[employer] H CENTE R LAB Not Available Not [...] 10(3) /mcL 10/26 6:01 AM CDT [facility] Pepp[employer]ornT H CENTE R LAB Not Available Not Available 10/27/2024 13:50:06 10/27/19 25 10/26/2024 CBC W Auto Diffe renti al panel - Blood erythrocytes [#/volume] in blood by automated count 3.93 text: 3.80 - 5.30 10(6)/ mcL RBC 3.93 3.80 - 5.30 10(6) /mcL 10/26 6:01 AM CDT [facility] Pepp[employer]ornT H CENTE R LAB Not Available Not Available 10/27/2024 13:50:06 10/27/19 25 10/26/2024 CBC W Auto Diffe renti al panel - Blood hemoglobin [mass/volume ] in blood 10.9 g/dL low: 12g/dL high: 15.8g/ dL low HEMOG LOBIN (HGB) 10.9 (L) 12.0 - 15.8 g/dL 10/26 6:01 AM CDT [facility] Not Available Not Available 10/27/2024 13:50:06 10/27/19 25 10/26/2024 CBC W Auto Diffe renti al panel - Blood hematocrit [volume fraction] of blood by automated count 36.2 % low: 36%hig h: 47% HEMAT OCRIT (HCT) 36.2 36.0 - 47.0 % 10/26 6:01 AM CDT [facility] Not Available Not Available 10/27/2024 13:50:06 10/27/19 25 10/26/2024 CBC W Auto Diffe renti al panel - Blood MCV [entitic volume] by automated count 92.1 fL low: 82fLhi gh: 96fL MCV 92.1 82.0 - 96.0 fL 10/26 6:01 AM CDT [facility] Not Available Not Available 10/27/2024 13:50:06 10/27/19 25 10/26/2024 CBC W Auto Diffe renti al panel - Blood MCH [entitic mass] by automated count 27.7 pg low: 26pghi gh: 34pg MCH 27.7 26.0 - 34.0 pg 10/26 6:01 AM CDT [facility] SHANIQUE [facility] Not Available Not Available 10/27/2024 13:50:06 10/27/19 25 10/26/2024 CBC W Auto Diffe renti al panel - Blood MCHC [mass/volume ] by automated count 30.1 g/dL low: 31g/dL high: 36g/dL low MCHC 30.1 (L) 31.0 - 36.0 g/dL 10/26 6:01 AM CDT [facility]AT H [facility] LAB Not Available Not Available 10/27/2024 13:50:06 10/27/19 25 10/26/2024 CBC W Auto Diffe renti al panel - Blood platelets [#/volume] in blood 272 text: 140 - 440 10(3)/ mcL PLATE LET COUNT 272 140 - 440 10(3) /mcL 10/26 6:01 AM CDT [facility] Not Available Not Available 10/27/2024 13:50:06 10/27/19 25 10/26/2024 CBC W Auto Diffe renti al panel - Blood erythrocyte distribution width [ratio] by automated count 15.9 % low: 11.8%h igh: 15.5% high RDW 15.9 (H) 11.8 - 15.5 % 10/26 6:01 AM CDT [facility] Not Available Not Available 10/27/2024 13:50:06 10/27/19 25 10/26/2024 CBC W Auto Diffe renti al panel - Blood platelet mean volume [entitic volume] in blood by automated count 9.4 fL low: 9.7fLh igh: 12.4fL low MPV 9.4 (L) 9.7 - 12.4 fL 10/26 6:01 AM CDT [facility] LAB Not Available Not Available 10/27/2024 13:50:06 10/27/19 25 10/26/2024 CBC W Auto Diffe renti al panel - Blood neutrophils/ 100 leukocytes in blood by automated count 93.2 % low: 47%hig h: 73% high NEUTR OPHIL S 93.2 (H) 47.0 - 73.0 % 10/26 6:01 AM CDT [facility] Not Available Not Available 10/27/2024 13:50:06 10/27/19 25 10/26/2024 CBC W Auto Diffe renti al panel - Blood lymphocytes/ 100 leukocytes in blood by automated count 3.9 % low: 18%hig h: 42% low LYMPH OCYTE S 3.9 (L) 18.0 - 42.0 % 10/26 6:01 AM CDT [facility] Not Available Not Available 10/27/2024 13:50:06 10/27/19 25 10/26/2024 CBC W Auto Diffe renti al panel - Blood monocytes/10 0 leukocytes in blood by automated count 2.8 % low: 4%high : 12% low MONOC YTES 2.8 (L) 4.0 - 12.0 % 10/26 6:01 AM CDT [facility] Not Available Not Available 10/27/2024 13:50:06 10/27/19 25 10/26/2024 CBC W Auto Diffe renti al panel - Blood eosinophils/ 100 leukocytes in blood by automated count 0 % low: 0%high : 5% EOSIN OPHIL S 0.0 0.0 - 5.0 % 10/26 6:01 AM CDT [facility] Not Available Not Available 10/27/2024 13:50:06 10/27/19 25 10/26/2024 CBC W Auto Diffe babarti al panel - Blood basophils/10 0 leukocytes in blood by automated count 0.1 % low: 0%high : 1% BASOP HILS 0.1 0.0 - 1.0 % 10/26 6:01 AM CDT [facility] Not Available Not Available 10/27/2024 13:50:06 10/27/19 25 10/26/2024 CBC W Auto Diffe babarti al panel - Blood neutrophils [#/volume] in blood by automated count 10.15 text: 1.60 - 7.70 10(3)/ mcL high ABSOL EAGLE NEUTR OPHIL S 10.15 (H) 1.60 - 7.70 10(3) /mcL 10/26 6:01 AM CDT [facility] Not Available Not Available 10/27/2024 13:50:06 10/27/19 25 10/26/2024 CBC W Auto Diffe renti al panel - Blood lymphocytes [#/volume] in blood by automated count 0.43 text: 1.30 - 3.20 10(3)/ mcL low ABSOL E[place] LYMPH OCYTE S 0.43 (L) 1.30 - 3.20 10(3) /mcL 10/26 6:01 AM CDT [facility] Not Available Not Available 10/27/2024 13:50:06 10/27/19 25 10/26/2024 CBC W Auto Diffe renti al panel - Blood monocytes [#/volume] in blood by automated count 0.31 text: 0.20 - 1.00 10(3)/ mcL ABSOL EAGLE MONOC YTES 0.31 0.20 - 1.00 10(3) /mcL 10/26 6:01 AM CDT [facility] Not Available Not Available 10/27/2024 13:50:06 10/27/19 25 10/26/2024 CBC W Auto Diffe renti al panel - Blood eosinophils [#/volume] in blood by automated count 0 text: 0.00 - 0.40 10(3)/ mcL ABSOL EAGLE EOSIN OPHIL 0.00 0.00 - 0.40 10(3) /mcL 10/26 6:01 AM CDT [facility] Not Available Not Available 10/27/2024 13:50:06 10/27/19 25 10/26/2024 CBC W Auto Diffe renti al panel - Blood basophils [#/volume] in blood by automated count 0.01 text: 0.00 - 0.10 10(3)/ mcL ABSOL EAGLE BASOP HILS 0.01 0.00 - 0.10 10(3) /mcL 10/26 6:01 AM CDT [facility] Not Available Not Available 10/27/2024 13:50:06 10/27/19 25 10/26/2024 CBC W Auto Diffe renti al panel - Blood nucleated erythrocytes /100 leukocytes [ratio] in blood 0 NRBC PER 100 WBC 0 10/26 6:01 AM CDT [facility] Not Available Not Available 10/27/2024 13:50:06 10/27/19 25 10/26/2024 CBC W Auto Diffe renti al panel - Blood fruit bar maker review of results Yes RESUL TS ARE CONSI STENT WITH PERIP HERAL SMEAR REVIE W Yes 10/26 6:01 AM CDT [facility] Not Available Not Available 10/27/2024 13:50:06 10/27/19 25 10/26/2024 CBC W Auto Diffe renti al panel - Blood erythrocytes [morphology] in blood by automated count Yes RBC MORPH OLOGY CONSI STENT WITH INDIC ES Yes 10/26 6:01 AM CDT [facility] Not Available [...] mmol/ L 10/26 5:30 AM CDT [facility] Not Available Not Available 10/27/2024 13:50:05 10/27/19 25 10/26/2024 Basic metab olic 2000 panel - Serum or Plasm a potassium [moles/volum e] in serum or plasma 4.7 mmol/ L low: 3.5mmo l/Lhig h: 5.1mmo l/L POTAS SIUM 4.7 3.5 - 5.1 mmol/ L 10/26 5:30 AM CDT [facility] Not Available Not Available 10/27/2024 13:50:05 10/27/19 25 10/26/2024 Basic metab olic 2000 panel - Serum or Plasm a chloride [moles/volum e] in serum or plasma 103 mmol/ L low: 98mmol /Lhigh : 107mmo l/L CHLOR ISABEL 103 98 - 107 mmol/ L 10/26 5:30 AM CDT [facility] Not Available Not Available 10/27/2024 13:50:05 10/27/19 25 10/26/2024 Basic metab olic 2000 panel - Serum or Plasm a carbon dioxide, total [moles/volum e] in serum or plasma 30 mmol/ L low: 22mmol /Lhigh : 30mmol /L CO2, VENOU S 30 22 - 30 mmol/ L 10/26 5:30 AM CDT [facility] H [facility] LAB Not Available Not Available 10/27/2024 13:50:05 10/27/19 25 10/26/2024 Basic metab olic 1999 panel - Serum or Plasm a anion gap in serum or plasma 12.7 mmol/ L high: 18mmol /L ANION GAP 12.7 <18.0 mmol/ L 10/26 5:30 AM CDT [facility] R LAB Not Available Not Available 10/27/2024 13:50:05 10/27/19 25 10/26/2024 Basic metab olic 2000 panel - Serum or Plasm a glucose [mass/volume ] in serum or plasma 121 mg/dL low: 70mg/d Lhigh: 99mg/d L high GLUCO SE 121 (H) 70 - 99 mg/dL 10/26 5:30 AM CDT [facility]ornT H CENT[facility] LAB Not Available Not Available 10/27/2024 13:50:05 10/27/19 25 10/26/2024 Basic metab olic 2000 panel - Serum or Plasm a urea nitrogen [mass/volume ] in serum or plasma 30 mg/dL low: 10mg/d Lhigh: 20mg/d L high BUN 30 (H) 10 - 20 mg/dL 10/26 5:30 AM CDT [facility] Not Available Not Available 10/27/2024 13:50:05 10/27/19 25 10/26/2024 Basic metab olic 2000 panel - Serum or Plasm a creatinine [mass/volume ] in serum or plasma 1.16 mg/dL low: 0.6mg/ dLhigh : 1mg/dL high CREAT ININE , BLOOD 1.16 (H) 0.60 - 1.00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 exacerbation of chronic obstructive pulmonary disease 039842112 J44.1 - Will treat COPD exacerbati on with prednisone 50 mg x5 days and azithromyc in 500 mg x1 day then 250 mg x4 days- Discussed supportive care at home with emphasis on maintainin g adequate hydration - Provided anticipato ry guidance for when to call office and/or seek emergency treatment Acute cellulitis 5300273 009 L03.113 Z22.322 - Will treat with Bactrim DS given known MRSA colonizati on [id number] MD Malena DIAZ (HOTEL OPERATIONS MANAGER) [address] [place] [address] 03/22/2024 15:06:38 04/06/2024 15:12:37 Abnormal vital signs 10475176 R68.89 - Low BP with tachycardi a in setting of minimal PO intake today- Advised pushing oral fluids or soup at home Mixed anxi ety and depressive disorder 975839774 F41.8 - Poorly controlled on multiple medication s. Has decreased concentrat ion and motivation . Tearful in office; provided emotional support.- Advised discussing coping mechanisms for panic symptoms with therapist- Completed partial medication reconcilia tion in office today, as not all medication s were in their original containers to be reconciled . Continue medication s as prescribed by psychologist clinical.- Recommende d finding community/ friends by engaging in groups related to old hobbies; suggested joining a book club. Obstructiv e sleep apnea syndrome 30501374 G47.33 - Requires BiPAP per recent hospital admission- Advised patient to use BiPAP during the day for naps [id number] MD Malena DIAZ (HOTEL OPERATIONS MANAGER) [address] [place] [address] 05/15/2024 14:52:49 06/01/2024 16:35:11 History of methamphetamine abuse 0591311498 1932222 F15.21 - Congratula joão patient on abstaining from use Essential hypertension 23244798 I10 - On amlodipine 2.5 mg and irbesartan 150 mg- 05/15/24: BP 127/90 on repeat check. Given concern for acute COPD exacerbati on, will wait to adjust BP med until not acutely ill for more accurate BP check. Chronic low back pain 27 6772036 M54.50 - Chronic, not controlled - Continue home cyclobenza alok. Will add meloxicam 7.5 mg daily and refer to PT for further evaluation and treatment. - RTC in 3 months for re-evaluat ion Acute exac erbation of chronic obstructive pulmonary disease 987407814 J44.1 - Will treat COPD exacerbati on with prednisone 50 mg x5 days and azithromyc in 500 mg x1 day then 250 mg x4 days- Discussed supportive care at home with emphasis on maintainin g adequate hydration- Provided anticipato ry guidance for when to call office and/or seek emergency treatment Ex-smoker 6815894 Z87.89 1 - Congratula joão patient on abstaining from use [id number] MD Malena DIAZ (HOTEL OPERATIONS MANAGER) [address] [place] [address] 05/31/2024 13:58:25 06/03/2024 12:42:24 Dependence on supplemental oxygen 2623041098 07 Z99.81 J44.9 R06.00 - Handicap placard form completed today Chronic ob structive pulmonary disease 14742441 J44.9 - Poorly controlled COPD with frequent exacerbati ons- Has poor endurance. [facility] and [facility] - CXR result from COPD exacerbati on reviewed with patient; no concern for PNA Chronic low back pain 27 4904612 M54.50 - Chronic, not controlled - Increased home cyclobenza alok to TID dosing. Will increase meloxicam to 15 mg daily. Will also refill oxycodone for breakthrou gh pain as below.- PT referral ordered at last visit- RTC in 3 months for re-evaluat ion Fibromyalgia 833168983 M 79.7 G89.29 - Chronic back pain, worse with movement- Will treat with oxycodone 5 mg BID PRN for severe/kavya akthrough pain- Controlled substance agreement signed 02/22/24- Discussed using pain medication only as needed, having Narcan available for overdose treatment Hypothyroidism 93597056 E03.9 - Low TSH 0.212 on labs from 12/2022; on levothyrox ine 125 mcg daily.- Labs 04/20/23: TSH 30.1, fT4 0.72. Levothyrox ine increased to 150 mcg daily.- 08/24/23: TSH wnl on levothyrox ine 150 mcg daily.- 12/22/23: TSH 0.045, fT4 wnl while hospitaliz ed; levothyrox ine adjusted. Repeat TSH in 4 weeks.- 05/31/24: No repeat TSH on file. Will recheck now. Tachycardia 1348930 R00. 0 - Noted on exam. Further workup pending TSH result; may be related to over-treat ment of hypothyroi dism. [id number] MD Malena DIAZ (HOTEL OPERATIONS MANAGER) [address] [place] [address] 06/08/2024 14:32:52 06/09/2024 14:00:14 Hospital inpatient stay within past 30 days [id number] 106 Z76.89 - Admitted 06/03 to 06/06 for COPD exacerbati on- Discharge summary reviewed Acute exac erbation of chronic obstructive pulmonary disease 915808150 J44.1 - S/p hospitaliz ation for COPD exacerbati on- Continue prednisone taper per hospitalis t instructio ns- Advised calling pulmonolog ist office for appointmen t next week. Patient to discuss new sleep study vs changing BiPAP settings based on what was effective during hospitaliz ation with pulmonolog ist. [id number] MD Malena DIAZ (HOTEL OPERATIONS MANAGER) [address] [place] [address] 07/21/2024 15:13:42 07/31/2024 11:17:51 Candidal intertrigo 234556154 B37.2 - Will treat with ketoconazo le cream Pain on eye movement 372 8532887 H57.12 H11.32 H53.8 - Advised optometris t/ophthalm ologist evaluation LENARD due to pain with eye movement and blurry vision. Provided patient with informatio n for [facility] and will place referral now.- Exam also notable for subconjunc tival hemorrhage of left eye, which is likely unrelated to eye pain. Painful mouth 786512060 K13.79 - Will manage symptomati avelina with viscous liodcaine Viral syndrome 065425489 B34.9 - Nausea, diarrhea, URI symptoms suggest acute viral infection. Supportive care recommende d. Psoriasis 0904427 L40.9 - Not controlled - Advised patient to set up appointmen t with dermatolog ist [id number] MD Malena DIAZ (HOTEL OPERATIONS MANAGER) [address] [place] [address] 09/13/2024 11:34:10 09/14/2024 10:28:36 Fibromyalgia 929487044 M79.7 G89.29 - Chronic, not controlled since [...] depression . Chronic low back pain 27 6387373 M54.50 - Chronic, not controlled - Refilled home cyclobenza alok 10 mg TID PRN. Oxycodone for breakthrou gh pain as above.- Meloxicam discontinu ed by mindy stokes.- Following with PT Positive s creening for depression on PHQ-9 (Patient Health Questionnaire 9) 8085359912 Z13.31 - Follows with PMHNP- On aripiprazo le, clonidine, duloxetine , hydroxyzin e, and sertraline per med list [id number] [facility]HOTEL OPERATIONS MANAGER) [address] [place] [address] 11/02/2024 14:46:49 11/03/2024 11:45:44 Positive screening for depression on PHQ-9 (Patient Health Questionnaire 9) Z13.31 - Follows with PMHNP- On aripiprazo le, clonidine, duloxetine , hydroxyzin e, and sertraline per med list Hospital i npatient stay within past 30 days [id number] 106 Z76.89 - Admitted 10/23/24- for COPD exacerbati on Chronic low back pain 27 9471149 M54.50 - Chronic, not controlled on cyclobenza [...] injections ; referred to pain management Fibromyalgia 111019633 M 79.7 G89.29 - Chronic, not controlled since tapered off of prednisone by mindy stokes- Pain management as above for chronic low back pain Long-term current use of opiate analgesic drug 8355747064 89622 Z79.891 - Controlled substance agreement signed 02/22/24- Urine drug screen collected 11/02/24- Previously discussed oxycodone use only as needed and with Narcan available at home in case of respirator y depression Essential hypertension 56711856 I10 - Chronic, controlled on amlodipine 5 mg and irbesartan 150 mg daily Chronic ob structive pulmonary disease 34682718 J44.9 - Poorly controlled COPD with frequent exacerbati ons- Has poor endurance. Previously referred to cardiopulm onary rehab for further evaluation and treatment. - [...] Jackson Member ID Guarantor Name 05/31/2024 1 [facility] ON OR AFTER 01/30/21 (MEDICAID REPLACEMENT - HMO) Sunita Alpine [id number] Sunita Alpine 06/08/2024 1 [facility] - DOS ON OR AFTER 21 (MEDICAID REPLACEMENT - HMO) Sunita Alpine [id number] Sunita Alpine 07/21/2024 1 [facility] - DOS ON OR AFTER 21 (MEDICAID REPLACEMENT - HMO) Sunita Alpine [id number] Sunita Alpine 09/13/2024 1 [facility] - DOS ON OR AFTER 21 (MEDICAID REPLACEMENT - HMO) Sunita Alpine [id number] Sunita Alpine 11/02/2024 1 [facility] - DOS ON OR AFTER 21 (MEDICAID REPLACEMENT - HMO) Sunita Alpine [id number] Sunita Alpine Notes Date Note Type Note Provider Name and Address Organization Details Recorded Time 4 text/html COPD- Improved since treatment for recent exacerbation- Still gets short of breath with walking short distances- Has handicap placard form to be completed Low back pain- Pain is not well controlled- Has not noticed a difference with the meloxicam LIANNE STACK MD Attn: Accounting[address] [place], [address], [facility] 06/01/2024 21:57:40 4 text/html Hospital [...] breath are about at baseline- Appointment with project eng in early July- Ex- is staying with her at home for the next week. Does not feel safe to be sleeping by herself. LIANNE STCAK MD Attn: [address]ing[address] [place], [address], [facility] 06/08/2024 15:11:39 4 text/html Rashes- Has been [...] dry skin is from psoriasis- Sees a single corner cutter but needs to schedule an appointment URI [...] days. LIANNE STACK MD Attn: Accounting[address] [place], [address], [facility] 07/30/2024 11:59:26 5 text/html Chronic pain- Shoulders, legs, hips, and back hurt worse than usual- Was weaned off of prednisone by assistant county engineer. Last visit 6+ weeks ago. Last dose of steroids was 3 days ago.- Was taken off of meloxicam by assistant county engineer due to stomach side effects. Has been [...] due to: ____}}.- Visit was conducted over [facility] Nurse Practitioner.- Physician's primary practice site: [facility] - {{Site 16 ([place])* Site 14 ([place]) Site 20 ([place])}}- Location of patient: {{home* work other:}}- Time started: 2:01 PM- Time ended: 2:11 PM- Total length of visit: 9m43s LIANNE STACK MD Attn: [address]ing[address] [facility], [place], [address], [facility] 09/13/2024 15:20:19 5 text/html Hospital f/uCOPD exacerbationChronic back pain- Difficulty breathing varies on a daily basis. Has done more today than usual (had another appointment) and feels out of breath. Always using 4L at home. Sometimes has to go up to 6L while in the shower.- Still using BiPAP at home but has problems with using the machine. Has been using [employer] as supplier and plans to switch to [employer].- Back pain is sometimes so bad she can't walk. Has not done PT due to being hospitalized on the day that she was supposed to start therapy services. LIANNE STACK MD Attn: Accounting,[address] [place], [address], [facility] 11/02/2024 18:06:26 OBGyn Episode No OBEpisode recorded.
--- OUTSIDE RECORDS SUMMARY | 2024-12-24 17:08 | XMS_ITS | Encounter Summary ---
Author Organization [facility] Address [address] [place] [address] Phone Care Team Providers Care Senior Dentist Name Role Phone Lianne Stack MD Primary Care Provider [phone] Ryan Figueroa MD Unavailable Gene Russell MD Unavailable [phone] Reason for Visit * Reason Comments Medication Refill Encounter Details Date Type Department Care Team (Late st Contact Info) Description 12/25/2023 Refill [facility] - Pulmonology & Sleep Medicine [facility] [address] [place] [address] Ryan Figueroa MD [address] [place] [address] Medication Refill Social History Tobacco Use Types Packs/Day Years Used Date Smoking Tobacco: Every Day Cigarettes 1 25.4 Started: 1999 Alcohol Use Standard Drinks/Week Comments No 0 (1 standard drink = 0.6 oz pur e alcohol) [facility] Utilities Answer Date Recorded In the past 12 months has e [employer], gas, oil, or water company threatened to [...] declined 12/15/2023 How often do you attend confucianist or confucianism serv ices? Patient declined 12/15/2023 [...] medical care, and heating? Patient declined 12/15/2023 [facility] - Occupational Stress Questionnaire Answer Date [...] a fdc (including now)? Patient declined 12/15/2023 Sexually Active [...] AM CDT Medication(s) refilled and signed per [facility] Chronic Medication Refill Standing Order for Pediatricand [...] Cormier 03/06/24 Appointment Ryan Figueroa MD [facility] [address] Showing future appointments within next 90 days [...] CDT 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 02/25/2024 06/06/2024 9:53 AM BRUSHER TENDER COVID - 19 06/03/2024 06/03/2024 06/03/2024 12:0 0 PM CDT COVID - 19 10/08/2024 10/08/2024 10/08/2024 9:00 PM CDT COVID - 19 10/23/2024 10/23/2024 10/23/2024 1:09 AM CDT documented as of this encounter Care Teams Senior Dentist Relationship Specialty Start Date End Date Lianne Stack MD [address] [place] [address] [id number] PCP - General Family Medicine 01/13/23 Ryan Figueroa MD [address] [place] [phone] Consulting Physician Pulmonary Disease 01/29/23 Gene Russell MD [address] [place] [address] Consulting Physician Neurology 01/28/24 documented as of this encounter
--- OUTSIDE RECORDS SUMMARY | 2024-12-24 17:09 | XMS_ITS | Encounter Summary ---
Author Organization [facility] Address [facility] [place] [address] Care Team Providers Care Slunk Skin Curer Name Role Phone Glenroy Power DO Primary Care Provider [phone] Claudette Dangelo MD Primary Care Provider [phone] Claudette Dangelo MD Primary Care Provider [phone] Lianne Stack MD Primary Care Provider [phone] Reason for Visit * Reason Comments Refill Request Encounter Details Date Type Department Care Team (Late st Contact Info) Description 01/08/2020 Refill [facility] [address] [place] [address] Michelle Agee MD [address] [id number] Refill Request Social History Tobacco Use Types Packs/Day Years Used Date Smoking Tobacco: Every Day Cigarettes 1 45 Smokeless Tobacco: Never Alcohol Use Standard Drinks/Week Comments Not Currently 0 (1 standard drink = 0.6 oz pur e alcohol) last drink 23 years ago Comments No Sex and Gender Information Value Date Recorded Sex Assigned at Not on file Legal Sex Female 6:25 AM GOLF COURSE MANAGER Gender Identity Not on file Sexual [...] ??? vitamin D, ergocalciferol, (DRISDOL) 1.25 MG (72154 UT) capsule [Pharmacy Med Name: VITAMIN D2 [...] Description 01/17/2025 11:20 AM CDT Office Visit [facility] - Rheumatology [address] [facility], [address] [place] [address] Logan Mancilla DO [address] [facility] [address] [facility] [place] [address] documented as of this encounter Visit Diagnoses Diagnosis Vitamin D deficiency- Primary Anti-TPO antibodies present Other and unspecified nonspecific immunological findings Arthralgia, unspecified joint Psoriasis Other psoriasis documented in this encounter Care Teams Slunk Skin Curer Relationship Specialty Start Date End Date Glenroy Power DO [address] [facility] [address] [place] [address] [address] [place] [address] PCP - General 05/14/21 06/17/21 Claudette Dangelo MD [address] [place] [address] PCP - General 09/07/19 05/12/21 Claudette Dangelo MD [address] [place] [address] PCP - General 06/18/21 07/05/24 Lianne Stack MD [address] [facility] [address] [place] [address] PCP - General Family Medicine 07/06/24 documented as of this encounter
--- OUTSIDE RECORDS SUMMARY | 2024-12-24 17:09 | XMS_ITS ---
Author Organization [facility] Address [address] [place] [address] Care Team Providers Care Talend Etl Developer Name Role Phone Olman Vicky Primary Care Provider Patrizia Hui Unavailable [phone] REASON FOR VISIT BH Clinician Referral Social History Sex Assigned At : Social History Observation Description Sex Assigned At Female Encounters Encounter Location Date Provider Diagnosis [address] [place] [address] 12/05/2024 Patrizia Hui Assessments Encounter Date Diagnosis (ICD Code) Assessment Notes Treatment Notes Treatment Clinical Notes Section Notes 12/05/2024 Other Clinician met with client to assess needs and preferences for services. Clinician explored therapy goals, history of engagement, psychiatric history and diagnosis. Clinician provided education on same day call in therapy, traditional therapy and control and recovery special tactics services. Referrals for preferred methods will be sent following appointment. Plan Of Treatment Treatment Notes Assessment Notes Other Clinician met with travon victor to assess needs and preferences for services. Clinician explored therapy goals, history of engagement, psychiatric history and diagnosis. Clinician provided education on same day call in therapy, traditional therapy and control and recovery special tactics services. Referrals for preferred methods will be sent following appointment. Progress Notes * David DANIELSOB:1960 (64 yo F)Acc No.[id number]:12/05/2024 UNLOCKED PROGRESS NOTE Patient: Sunita BARRAGAN Provider: Angela uHi LCSW :1960 A ge:64 Y S ex:Female Date:12/05/2024 Address:[address], [facility] Pcp:Vicky Thurman Subjective: * Chief [...] To Treat, Health Care Providers, Emergency Contact, Probation/Amesti A ssessment of Social Determinants of Health::: Has A PRAPARE Been Completed In The Past Year? H as a PRAPARE Been Completed In The Past Year? Y es W as It Completed Today Using [email or web address]? N o P sychiatric Assessment - Current [...] Assistance, CHS12 Housing Assistance, CHS13 Referring to Public Address System Operator * * Electronic signature of April Hui LCSW, [id number] on 12/24/2024 at 05:08 PM CDT Sign off status: Pending * Provider: Angela Hui LCSW Date: 0 12/05/2024 Generated for Elder dejesus/Clarissa/Kemi on: 0 12/24/2024 05:08 PM CDT History and Physical Notes * [...] To Treat, Health Care Providers, Emergency Contact, Probation/Amesti Examination Category Sub-Category Detail Notes Category Not es Mental Status Exam ATTENTION AND CONCENTRATION x APPEARANCE x ATTITUDE AND BEHAVIOR x EYE CONTACT x AFFECT x MOOD x INSIGHT x JUDGMENT x
--- OUTSIDE RECORDS SUMMARY | 2024-12-24 17:09 | XMS_ITS | Referral Summary ---
Author Organization [facility] Address [address] [place] [address] Care Team Providers Care Dicer Operator Name Role Phone Lianne Stack MD Primary Care Provider [phone] Allergies Active Allergy Reactions Criticality Noted Date [...] 1 tablet (137 mcg total) by mouth inside sales agent before breakfast 30 tablet 4 Active albuterol [...] dorsum. Will call with culture results - [place] [facility] reviewed - Referral to Rheumatology [...] Overview (03/29/2024): Decreased libido;Recorded Elsewhere: No Location: [facility] Source: EHR Chronic: N Practice ID: [id number] Billable Time: 03:15:00 PM Intractable migraine without aura and without status migrainosus 06/20/2018 COPD (chronic obstructive pulmonary disease) (CM S/HCC) 02/10/2018 Overview (09/03/2022): COPD Allergic rhinitis 02/10/2018 Chronic constipation 02/10/2018 Chronic daily headache 02/10/2018 Depression 02/10/2018 History of Helicobacter pylori infection 018 History of pancreatitis 02/10/2018 JULIAN (obstructive sleep apnea) 02/10/2018 Overview (09/03/2022): Overview: ([facility] - repeated - at time [...] drink = 0.6 oz pur e alcohol) [facility] Utilities Answer Date Recorded In the past 12 months has [employer], gas, oil, or water [employer] threatened to shut off services in your home? No 03/29/2024 Social Connection and Isolat ion Panel [NHANES] Answer Date Recorded In a typical week, how many times do you talk on the phone with family, friends, or neighbors? Never 03/29/2024 How often do you get togethe r with friends or relatives? More than three times a week 03/29/2024 How often do you attend [facility] or episcopal services? Never 03/29/2024 Do you belong to any clubs o r organizations such as oriental orthodox groups, unions, fraternal or athletic groups, or [...] in a nursing home (including now)? No 03/29/2024 Personal Safety Answer Date Recorded Have you ever been in or are you currently in a harmful physical or emotional relationship or is someone making you feel afraid or unsafe? Denies 03/29/2024 Comments No Sex and Gender Information Value Date Recorded Sex Assigned at Not on file Legal Sex Female 12:37 PM CLINICAL PROGRAM CONSULTANT Gender Identity Not on file Sexual [...] 5:50 AM CDT Height 167.6 cm (5' 6) 04/02/2024 5:34 PM CDT Body Mass Index 37.72 04/02/2024 5:34 PM CDT Plan of Treatment Not on file Procedures Procedure Name Priority Date/Time Associated Diagnosis Comments COLONOSCOPY 06/19/2010 12:00 AM CLINICAL PROGRAM CONSULTANT from Last 3 Months or Most Recently Relevant to Health Maintenance Results * COLONOSCOPY (06/19/2010 12:00 AM CLINICAL PROGRAM CONSULTANT) Anatomical Region Laterality Modality Other Narrative 06/19/2010 12:00 AM CLINICAL PROGRAM CONSULTANT Ordered by an unspecified provider. Procedure Note Provider, MD Floyd - 06/19/2010 12:00 AM CST PROCEDURE REPORT Patient: MARKEL DANIELS Account: [id number] Room No: : 1960 Patient Type: [facility] Attend.: Reece Ashton M.D. Admit Date: 06/19/2010 Dict.: Reece Ashton M.D. Disch. Date: PROCEDURE PERFORMED: Colonoscopy. HISTORY: 49-year-old female with a prior history of colonic polypspresently having alternating constipation and diarrhea. PHYSICAL EXAMINATION: Obese female. Lungs are clear. Cardiovascular examination was unremarkable. PROCEDURE: Colonoscopy was performed with the [employer] video endoscope.The patient was premedicated by anesthesia. [...] TD: 06/20/2010 11:07 CC: Dr. Glenroy Power [place], [place] PROCEDURE REPORT Authenticated by Reece Ashton MD On 06/23/2010 07:33:00 AM us Historical Provider ENDOSCOPY PROCEDURES Shelby l Result from Last 3 Months or Most Recently Relevant to Health Maintenance Insurance [address] [place], [place] [id number] [place] [address] [address] [place] [address] [facility] Advance Directives For more information, please contact: [phone] * Full Code (Latest Code Status on File) Date Activated Date Inactivated Comments 03/29/2024 4:20 AM 04/05/2024 6:34 PM * Full Code Date Activated Date Inactivated Comments 09/20/2020 3:43 AM 09/22/2020 5:29 PM Care Teams Dicer Operator Relationship Specialty Start Date End Date Lianne Stack MD [address] [place] [address] PCP - General Obstetrics and Gynecology 11/25/23
--- OUTSIDE RECORDS SUMMARY | 2024-12-24 17:09 | XMS_ITS | Encounter Summary ---
Author Organization [facility] Address [address] [place] [address] Phone Care Team Providers Care Engineering Mathematician Name Role Phone Lianne Stack MD Primary Care Provider [phone] Ryan Figueroa MD Unavailable Gene Russell MD Unavailable [phone] Encounter Details Date Type Department Care Team (Late st Contact Info) Description 04/05/2024 Home Health Resumpti on of Care Planning [facility] [address] [place] [address] Social History Tobacco Use Types Packs/Day Years Used Date Smoking Tobacco: Every Day Cigarettes 1 25.4 Started: 1999 Alcohol Use Standard Drinks/Week Comments No 0 (1 standard drink = 0.6 oz pur e alcohol) [facility] Utilities Answer Date Recorded In the past 12 months has [employer], gas, oil, or water [employer] threatened to shut off services in your home? Patient declined 02/25/2024 Social Connection and Isolation Panel [NHANES] A nswer Date Recorded In a typical week, how many times do you talk on the phone with family, friends, or neighbors? Patient declined 02/25/2024 How often do you get togethe r with friends or relatives? Patient declined 02/25/2024 How often do you attend hinduism or nondenominational serv ices? Patient declined 02/25/2024 Do you belong to any clubs o r organizations such as hinduism groups, unions, fraternal or athletic groups, or [...] medical care, and heating? Patient declined 02/25/2024 [facility] - Occupational Stress Questionnaire Answer Date [...] place to sleep or slept in a fci (including now)? Patient declined 12/15/2023 Housing Stability Vital Sign Answer Nehemias e Recorded In the last 12 months, was t here a time when you were not able to pay the mortgage or rent on time? Patient declined 02/25/20 In the past 12 months, how m any times have you moved where you were living? 1 02/25/2024 At any time in the past [address] [facility], were you homeless or living in a fci (including now)? Patient declined 02/25/2024 Sexually Active [...] Time 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 02/25/2024 06/06/2024 9:53 AM RESEARCH AND DEVELOPMENT RESEARCHER COVID - 19 06/03/2024 06/03/2024 06/03/2024 12:0 0 PM CDT COVID - 19 10/08/2024 10/08/2024 10/08/2024 9:00 PM CDT COVID - 19 10/23/2024 10/23/2024 10/23/2024 1:09 AM CDT documented as of this encounter Care Teams Engineering Mathematician Relationship Specialty Start Date End Date Lianne Stack MD [address] [place] [address] PCP - General Family Medicine 01/13/23 Ryan Figueroa MD [address] [place] [phone] Consulting Physician Pulmonary Disease 01/29/23 Gene Russell MD [address] [place] [address] Consulting Physician Neurology 01/28/24 documented as of this encounter
--- OUTSIDE RECORDS SUMMARY | 2024-12-24 17:09 | XMS_ITS | Clinical Summary ---
Author Organization [facility] Address [address] [facility] [place] [address] Care Team Providers Care As400 Operator Name Role Phone Lianne Stack MD Primary Care Provider [phone] Source Comments [facility],non-owned Affiliates and Associated Physician Practices is amultiple site organization consisting of ambulatory clinics and hospital sitesin [place], [place] and [place]. This disclosure is being madepursuant to the Care Everywhere program and may not contain all information available regarding this patient. Last updated 18.[facility] Allergies Active Allergy Reactions Criticality Noted Date [...] naloxone HCl (Narcan) 4 MG/0.1ML nasal spray [place] 1 (one) spray into the nose as [...] mouth daily before breakfast Active nystatin (Mycostatin) 444604 UNIT/GM creamIndications :Cutaneous Candidiasis Apply to affected [...] 02/15/2020 Assessment & Plan (10/10/2020 4:34 PM DIRECTOR BROADCAST): - BSA < 5% - Encouraged to [...] dorsum. Will call with culture results - [place] skin care reviewed - Referral to Rheumatology [...] (obstructive sleep apnea) 02/10/2018 Overview (02/10/2018): Overview: ([facility] - repeated - at time [...] 10/10/2020 Assessment & Plan (10/10/2020 4:35 PM DIRECTOR BROADCAST): - Cont Hibaclens daily Dizziness 08/29/2019 10/18/2024 [...] Description 10/18/2024 11:40 AM CDT Office Visit [facility] - Rheumatology [address] [place] [address], [address] [place] [address] Logan Mancilla DO Primary fibromyalgia [...] on file Legal Sex Female 6:25 AM DIRECTOR BROADCAST Gender Identity Not on file Sexual Orientation [...] Oxygen Concentration 35% 09/07/2019 1 2:25 AM DIRECTOR BROADCAST Weight 106.6 kg (235 lb) 10/18/2024 11:21 AM CDT Height 170.2 cm (5' 7) 07/06/2024 12:54 PM DIRECTOR BROADCAST Body Mass Index 36.81 07/06/2024 12:54 PM DIRECTOR BROADCAST Plan of Treatment Upcoming Encounters Date Type Department Care Team (Late st Contact Info) Description 01/17/2025 11:20 AM CDT Office Visit [facility] - Rheumatology [address] [facility], [address] [place] [address] Logan Mancilla DO [address] [facility] [address] [place] [address] Health Maintenance Due Date Last [...] COMPREHENSIVE METABOLIC PANEL Routine 07/13/2022 2:07 PM DIRECTOR BROADCAST Arthralgia, unspecified joint MAMMO BILAT SCREENING Routine 03/18/2020 1:16 PM CDT Encounter for screening mammogram for breast cancer HIV-1 HIV-2 ANTIGEN/ANTIBODY STAT 08/28/2019 4:47 PM DIRECTOR BROADCAST HEPATITIS C ANTIBODY Routine 06/08/2019 1:05 PM DIRECTOR BROADCAST Psoriasis Arthralgia, unspecified joint from Last 3 Months or Most Recently Relevant to Health Maintenance Results * (ABNORMAL) COMPREHENSIVE METABOLIC PANEL (07/13/2022 2:07 PM DIRECTOR BROADCAST) BUN 17 7 - 26 mg/dL 07/13/2022 2:55 PM [facility] Creatinine 1.03(H) 0.56 - 0.96 mg/dL 07/13/2022 2:55 PM [facility] Sodium 137 136 - 145 mmol/L 07/13/2022 2:55 PM [facility] Potassium 4.2 3.5 - 4.5 mmol/L 07/13/2022 2:55 PM [facility] Chloride 104 98 - 107 mmol/L 07/13/2022 2:55 PM [facility] CO2 28 22 - 29 mmol/L 07/13/2022 2:55 PM [facility] Glucose 88 70 - 115 mg/dL 07/13/2022 2:55 PM [facility] Calcium 9.3 8.4 - 10.2 mg/dL 07/13/2022 2:55 PM [facility] Protein Total 7.0 6.0 - 8.3 g/dL 07/13/2022 2:55 PM [facility] Albumin 3.4 3.4 - 5.0 g/dL 07/13/2022 2:55 PM [facility] Bilirubin Total 0.3 0.2 - 1.2 mg/dL 07/13/2022 2:55 PM [facility] Alkaline Phosphatase 161(H) 40 - 150 U/L 07/13/2022 2:55 PM [facility] ALT 45 5 - 55 U/L 07/13/2022 2:55 PM [facility] AST 31 5 - 34 U/L 07/13/2022 2:55 PM [facility] Anion Gap 9 8 - 18 07/13/2022 2:55 PM [facility] BUN/Creatinine Ratio 17 7 - 23 07/13/2022 2:55 PM [facility] Osmolality Calculated 285 270 - 300 mOsm/kg 07/13/2022 2:55 PM [facility] Albumin/Globulin Ratio 0.9(L) 1.1 - 2.3 07/13/2022 2:55 PM [facility] eGFR by CKD-EPI 62(L) >=90 mL/min/1.7 3 m2 07/13/2022 2:55 PM [facility] Blood BLOOD SPECIMEN / Unknown Lab Venipuncture / Unknown 07/13/2022 2:07 PM DIRECTOR BROADCAST 07/13/2022 2:26 PM [facility] Tae Bassett MD LAB - CHEMISTRY ORDERABLES Final Result [facility] [address] [place] [address], [facility] [phone] * Screening mammogram-[facility] (03/18/2020 1:16 PM CDT) Anatomical Region Laterality Modality Breast Bilateral Mammography 03/19/2020 8:39 AM CDT Impressions 03/19/2020 9:19 AM CDT IMPRESSION: No mammographic evidence of malignancy. ASSESSMENT: BI-RADS Category 1: Negative mammogram. RECOMMENDATION: Bilateral screening mammogram in one year. Dictated by Barbara Beck MD (resident care spec). I, Dr. HADLEY POWELL M.D. have personally reviewed and interpreted this examination/study. This report was electronically signed by HADLEY POWELL M.D. on 03/19/2020 9:19 AM . Narrative 03/19/2020 9:19 AM CDT SCREENING MAMMOGRAM DATE: 03/18/2020. COMPARISON: 09/25/2014 and priors dating back to 10/22/2009 performed at [facility]. HISTORY: Screening mammogram. TECHNIQUE: Images were [...] * HIV-1 HIV-2 ANTIGEN/ANTIBODY (08/28/2019 4:47 PM DIRECTOR BROADCAST) Pathologist [facility] HIV Antigen/Antibod y 1 & 2 Non-reacti ve Non-react tommy 08/28/2019 5:38 PM DIRECTOR BROADCAST [facility] Comment: Neither HIV-1 p24 Antigen nor HIV-1/HIV-2 Antibodies are detected. Blood BLOOD SPECIMEN / Unknown Venipuncture / Unknown 08/28/2019 4:47 PM DIRECTOR BROADCAST 08/28/2019 4:52 PM DIRECTOR BROADCAST Makayla Zaldivar MD LAB - HEMATOLOGY ORDERABLES Shelby luu Result [address] [phone] * HEPATITIS C ANTIBODY (06/08/2019 1:05 PM DIRECTOR BROADCAST) Pathologist [facility] Hepatitis C Antibody Non-react tommy Non-reac tive 06/08/2019 2:14 PM DIRECTOR BROADCAST [facility] Comment: Hepatitis C Antibody screen [...] Lab Venipuncture / Unknown 06/08/2019 1:05 PM DIRECTOR BROADCAST 06/08/2019 1:17 PM DIRECTOR BROADCAST us Michelle Agee MD LAB - CHEMISTRY ORDERABLES F inal Result [address] [phone] from Last 3 Months or Most Recently Relevant to Health Maintenance Insurance [address] [place] [phone] [facility] [address] [place] [address] [facility] [address] [place] [address] [facility] Advance Directives * Full Code (Latest Code Status on File) Date Activated Date Inactivated Comments 09/05/2019 9:30 PM 09/07/2019 10:27 PM * Full Code Date Activated Date Inactivated Comments 08/29/2019 1:36 AM 08/29/2019 4:13 PM Care Teams As400 Operator Relationship Specialty Start Date End Date Lianne Stack MD [address] [place] [address] PCP - General Family Medicine 07/06/24
--- OUTSIDE RECORDS SUMMARY | 2024-12-24 17:09 | XMS_ITS | Patient Health Record ---
Author Organization [facility] Address [address] [place] [address] Care Team Providers Care Director Learning Name Role Phone Vicky Thurman Primary Care Provider [phone] Patrizia Hui Unavailable [phone] Allergies Allergen (clinical drug ingredient) Drug/Non Drug [...] empty stomach Orally Once a day Unknown Irbesartan 150 MG 1 tablet Orally Once a day Unknown cloNIDine HCl 0.1 MG 1 tablet as needed. Orally Once a day Active amLODIPine Besylate 5 MG 1 tablet Orally Once a day Unknown rOPINIRole HCl 1 MG 1 tablet Orally Once a day Unknown Cyclobenzaprine HCl 10 MG 1 tablet Orall y twice a day Unknown Atorvastatin Calcium 40 MG 1 tablet Oral ly Once a day Unknown Nystatin - as directed Unknown Abilify 15 MG 1 tablet at bedtime Orally Once a day for 30 days Active Zoloft 100 MG 1 tablet at bedtime Orally Once a day for 30 days Active Cymbalta 60 MG 1 capsule Orally Onc e a day for 30 days Active Cymbalta 30 MG 1 capsule Orally Onc e a day for 30 days Active Nystatin 457695 UNIT/GM 1 application Externally Twice a day Unknown Norvasc Unknown Lidocaine 5 % 1 patch remove after 12 hours Externally Once a day Unknown Metoprolol Tartrate 25 MG 1 tablet with food Orally Twice a day Unknown hydrOXYzine HCl 50 MG 1 tablet as needed Orally three times a day for 30 days Active Austedo 9 MG 1 tablet with food Orally Twice a day for 30 days Active Social History Sex Assigned At : Social History Observation Description Sex Assigned At Female PRAPARE Question Answer Notes Date Completed/Updated: 12/19/2024 What is your current housing situation? I have h ousing Are you worried about losing your housing? No What is the highest level of school that you have finished? Less than a high school degree What is your current work situation? Oth erwise unemployed but not seeking work (ex. 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 Check all that apply I do not have problems meeting my needs Has lack of transportation k ept you from medical appointments, meetings, work or from getting things needed for daily living? Yes, it has kept me from non-medical meetings, appointments, work, or getting things needed for daily living How often do you see or talk to people that you care about and feel close to? (For example: talking to friends on the phone, visiting friends or family, going to yarsani or club meetings) More than 5 times a week How stressed are you? Stress is when someone feels tense, nervous, anxious, or can\t sleep at night because their mind is troubled Quite a bit In the past year have you sp ent more than 2 nights in a row in a half-way, detention, group home center, or juvenile correctional facility? No Do you feel physically and e motionally safe where you currently live? Yes In the past year, have you b een afraid of your partner or ex-partner? No PRAPARE Score: 7 Encounters Encounter Location Date Provider Diagnosis [address] [place] [address] 10/25/2024 Vicky Thurman [address] [place] [address] 11/01/2024 Vicky Thurman [place] [place] [address] 11/21/2024 Vicky Thurman [facility] [address] [place] [address] 12/07/2024 Vicky Thurman [address] [place] [address] 12/15/2024 Vicky Thurman [address] [place] [address] 12/21/2024 Vicky Thurman Assessments Encounter Date Diagnosis (ICD Code) Assessment Notes Treatment Notes Treatment Clinical Notes Section Notes 12/05/2024 Other Clinician met with client to assess needs and preferences for services. Clinician explored therapy goals, history of engagement, psychiatric history and diagnosis. Clinician provided education on same day call in therapy, traditional therapy and disaster recovery specialist services. Referrals for preferred methods will be sent following appointment. Plan Of Treatment No Information Insurance Providers Payer Name Payer Address Payer Phone Subscriber Number Group Number Insured Name Patient Relationship to Insured Coverage Start Date Coverage End Date [facility] Attn Claims Department [address] [place] [address] [id number] Sunita Daniels Self - patient is the insured
--- OUTSIDE RECORDS SUMMARY | 2024-12-24 17:09 | XMS_ITS | Clinical Summary ---
Author Organization [facility] Address [address] [place] [address] Care Team Providers Care Supervisor Cutting Department Name Role Phone Lianne Stack MD Primary [...] 1 tablet (137 mcg total) by mouth aviation safety officer before breakfast 30 tablet 4 Active albuterol [...] dorsum. Will call with culture results - [place] skin care reviewed - Referral to Rheumatology [...] Overview (03/29/2024): Decreased libido;Recorded Elsewhere: No Location: [facility] Source: EHR Chronic: N Practice ID: [id number] Billable Time: 03:15:00 PM Intractable migraine without aura and without status migrainosus 06/20/2018 COPD (chronic obstructive pulmonary disease) (CM S/HCC) 02/10/2018 Overview (09/03/2022): COPD Allergic rhinitis 02/10/2018 Chronic constipation 02/10/2018 Chronic daily headache 02/10/2018 Depression 02/10/2018 History of Helicobacter pylori infection 018 History of pancreatitis 02/10/2018 JULIAN (obstructive sleep apnea) 02/10/2018 Overview (09/03/2022): Overview: ([facility] - repeated - at time patient [...] drink = 0.6 oz pur e alcohol) [facility] Utilities Answer Date Recorded In the [...] often do you attend chur ch or denominational services? Never 03/29/2024 Do you belong to any clubs o r organizations such as protestant groups, unions, fraternal or athletic groups, or [...] any time in the past 12 [facility], were you homeless or living in [...] on file Legal Sex Female 12:37 PM CLAM TREADER Gender Identity Not on file Sexual Orientation [...] Associated Diagnosis Comments COLONOSCOPY 06/19/2010 12:00 AM CLAM TREADER from Last 3 Months or Most Recently Relevant to Health Maintenance Results * COLONOSCOPY (06/19/2010 12:00 AM CLAM TREADER) Anatomical Region Laterality Modality Other Narrative 06/19/2010 12:00 AM CLAM TREADER Ordered by an unspecified provider. Procedure Note ProviderFloyd MD - 06/19/2010 12:00 AM CST PROCEDURE REPORT Patient: MARKEL DANIELS Account: [id number] Room No: : 1960 Patient Type: [facility] Attend.: Reece Ashton M.D. Admit Date: 06/19/2010 Dict.: Reece Ashton M.D. Disch. Date: PROCEDURE PERFORMED: Colonoscopy. HISTORY: 49-year-old female with a prior history of colonic polypspresently having alternating constipation and diarrhea. PHYSICAL EXAMINATION: Obese female. Lungs are clear. Cardiovascular examination was unremarkable. PROCEDURE: Colonoscopy was performed with the [employer] video endoscope.The patient was premedicated by anesthesia. [...] TD: 06/20/2010 11:07 CC: Dr. Glenroy [employer] [place], [place] PROCEDURE REPORT Authenticated by Reece Ashton MD On 06/23/2010 07:33:00 AM Historical Provider ENDOSCOPY PROCEDURES Shelby l Result from Last 3 Months or Most Recently Relevant to Health Maintenance Insurance [address] [place] [address] [facility] [address] [place] [address] [address] Advance Directives For more information, please contact: [phone] * Full Code (Latest Code Status on File) Date Activated Date Inactivated Comments 03/29/2024 4:20 AM 04/05/2024 6:34 PM * Full Code Date Activated Date Inactivated Comments 09/20/2020 3:43 AM 09/22/2020 5:29 PM Care Teams Supervisor Cutting Department Relationship Specialty Start Date End Date Lianne Stack MD [address] [place] [address] PCP - General Obstetrics and Gynecology 11/25/23
--- OUTSIDE RECORDS SUMMARY | 2024-12-24 17:10 | XMS_ITS | Continuity of Care Document ---
Author Organization [facility] Address [address] [place] [address] [address] [place] [address] Phone Care Team Providers Care Credit Control Manager Name Role Phone Anitha Zaldivar Unavailable Unavailable Advance Directives Directive Yes / No Effective Date File Name No Information Encounters Encounter Description Practice Location Reason(s) For Visit Diagnoses Date Provider Providers Copied on Encounter [facility], [id number] [place] [address] [address], [place], [place], [id number], [place] tel:[phone] [facility] No Information Sep-0 [address]. [address] , [address], [place], [address], [place]. tel:[phone] Family History Family Member Type Diagnosis Age At Onset No Information Payers Payer name Insurance type Covered republican ID Authoriza tion(s) No Information Social History [...]
--- OUTSIDE RECORDS SUMMARY | 2024-12-24 17:10 | XMS_ITS | Data Portability ---
Author Organization [facility] [place] Address [address] [place] [address] Care Team Providers Care Pe Manager Name Role Phone JAVON HARLEY Primary Care Provider Assessment No assessment recorded. Plan of Treatment Reminders Order Date Submit Date Provider Last Modified By Organization Details Last Modified Time Details Appointments None recorded. Lab hsv (1+2) igm, serum 2022 023 [facility] (Lab), [address] [place], [address], 3 17:22:39 hsv-1 igg Ab, serum 2022 023 [facility] (Lab), [address] [place], [address], 3 17:22:38 hsv-2 igg Ab, serum 2022 023 [facility] (Lab), [address] [place], [address], 3 17:22:39 hbcab (hepatitis B core Ab) igm, serum 2022 023 [facility] (Lab), [address] [place], [address], 3 17:22:38 HBsAg (hepatitis B surface Ag), serum 2022 023 [facility] (Lab), [address] [place], [address], 3 17:22:37 hepatitis C virus Ab, serum 2022 023 [facility] (Lab), [address], [place], [address], 3 17:22:37 RPR (rapid plasma reagin), serum 2022 023 [facility] (Lab), [address], [place], [address], 3 17:22:38 unlisted lab - HIV 1/2 antigen/ant ibody, reflex confirmatio n 2022 023 [facility] (Lab), [address], [place], [address], 3 17:22:36 Referral None recorded. Procedures None recorded. Surgeries None recorded. Imaging None recorded. Medication Orders nystatin 100,000 unit/gram topical cream 2023 024 [id number], [address], [place], [place], [id number], 4 14:36:37 Valtrex 1 gram tablet 2022 023 [facility][id number], [address], [place], [place], [id number], 3 16:08:58 Patient TargetsNo targets recorded. Patient [...] nce of HIV infec tion. Not Available [facility] (Lab) [address], [place], [address], 10/17/2022 17:22:36 10/14/19 23 10/13/2022 HEPAT ITIS C ANTIB ANISH SCREE N, REFLE X TO CONFI RMATI ON hepatitis C antibody Non-re active non-re active Antib odies to HCV Not Detec joão, does not exclu de the possi bilit y of expos ure to HCV. Not Available [facility] (Lab) [address], [place], [address], 10/17/2022 17:22:37 10/14/19 23 10/13/2022 HEPAT ITIS B SURFA CE ANTIG EN hepatitis B surface antigen Non-re active non-re active This assay was perfo rmed using [employer] ratio n reage nts and test kits. Value s obtai isreal with other assay metho ds or kits canno t be used inter benites eably . Not Available [facility] (Lab) [address], [place], [address], 10/17/2022 17:22:37 10/14/19 23 10/13/2022 RPR SCREE N/REF MADISON TITER /FTA RPR screen Nonrea ctive nonrea ctive Not Available [facility] (Lab) [address], [place], [address], 10/17/2022 17:22:37 10/14/19 23 10/13/2022 HEPAT ITIS B CORE, IGM hepatitis B core IgM antibody Negati ve negati ve Not Available [facility] (Lab) [address] [place], [address], 10/17/2022 17:22:38 10/14/19 23 10/13/2022 HERPE S SMPLE X VIRUS TYPE 1 SPECI FIC AB, IGG herpes simplex virus 1 IgG Positi ve negati ve abnormal Not Available [facility] (Lab) [address], [place], [address], 10/17/2022 17:22:38 10/14/19 23 10/13/2022 HERPE S SMPLE X VIRUS TYPE 1 SPECI FIC AB, IGG herpes simplex virus 1 IgG, quant 4.4 ai 0.0-0. 8 high Not Available [facility] (Lab) [address], [place], [address], 10/17/2022 17:22:38 10/14/19 23 10/13/2022 HERPE S SIMPL EX VIRUS TYPE 2 SPECI FIC AB, IGG herpes simplex virus 2 IgG Negati ve negati ve Not Available [facility] (Lab) [address], [place], [address], 10/17/2022 17:22:39 10/14/19 23 10/13/2022 HERPE S SIMPL EX VIRUS TYPE 2 SPECI FIC AB, IGG herpes simples virus 2 IgG, quant <0.2 ai 0.0-0. 8 Not Available [facility] (Lab) [address], [place], [address], 10/17/2022 17:22:39 10/14/19 23 10/13/2022 HERPE S SIMPL EX VIRUS , 1 AND 2 IGM, IFA hsv 1 IgM screen NEGATI VE Not Available [facility] (Lab) [address] [place], [address], 10/17/2022 17:22:39 10/14/19 23 10/13/2022 HERPE S [...] cteri stics have been deter mined by [employer]. It has not been clear ed or appro alvaro by FDA. This assay has been valid ated pursu ant to the CLIA regul ation s and is used for clini cyn purpo ses. Perfo rming Organ izati on Infor matmaria isabel n: Site ID: EZ Name: [facility]Abdelrahman martin [facility] [place] , Addre ss: [id number] [address] [facility] [place] [place] [address] Direc tor: Niesha segundo MD,Ph D,GENEVIEVE Not Available [facility] (Lab) [address], [place], [address], 10/17/2022 17:22:39 10/14/19 23 10/13/2022 CT/GC AND TRICH OMONA S VAGIN MONTSE (RRNA ), URINE chlamydia trachomatis, PCR Negati ve negati ve Not Available [facility] (Lab) [address], [place], [address], 10/17/2022 17:32:43 10/14/19 23 10/13/2022 CT/GC AND TRICH OMONA S VAGIN MONTSE (RRNA ), URINE neisseria gonorrhoeae, PCR Negati ve negati ve Not Available [facility] (Lab) [address], [place], [address], 10/17/2022 17:32:43 10/14/19 23 10/13/2022 CT/GC AND TRICH OMONA S VAGIN MONTSE (RRNA ), URINE trichomonas vaginalis ribosomal RNA (rrna) Negati ve negati ve Not Available [facility] (Lab) [address], [place], [address], 10/17/2022 17:32:43 10/14/19 23 10/13/2022 CULTU RE: AEROB IC/AN AEROB IC result report SEE RESULT S BELOW abnormal Test: Cultu re: Aerob ic/An aerob ic Speci men Sourc e: Other Speci men Type: Micro biolo gy Speci men Speci men Date: 2022 4:22 PM Resul t Date: 2022 12:31 PM Resul t Statu s: Final resul t Abnor mal: Yes Resul jeffry Lab: [facility] [address] [facility] [address] Tel: CULTU RE ----- ----- ----- --- Moder ate Growt h Methi cilli n-Res istan t Staph yloco ccus aureu s ([facility]) Cultu re sampl es colle [...] rins and carba penem s. Not Available [facility] (Lab) [address], [place], [address], 10/17/2022 17:32:44 10/14/19 23 10/13/2022 CULTU RE: HERPE S SIMPL EX VIRUS (HSV) , REFLE X TYPIN G source SWAB Not Available [facility] (Lab) [address], [place], [address], 10/17/2022 17:32:44 10/14/19 23 10/13/2022 CULTU RE: HERPE S SIMPL EX VIRUS (HSV) , REFLE X TYPIN G hsv culture, body fluid NOT ISOLAT ED REFER ENCE RANGE : NOT ISOLA JOÃO labia major a Perfo rming Organ izati on Infor matio n: Site ID: EZ Name: [facility]Abdelrahman hols [facility] [place] , Addre ss: [id number] [facility] [address] Direc tor: Niesha segundo MD,Ph D,GENEVIEVE Not Available [facility] (Lab) [address] [place], [address], 10/17/2022 17:32:44 Result Notes None recorded. 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) w/o abn findings; Practice ID: [id number] Not Available [facility] 0 15:55:33 Evaluatio n finding Active 2017 Hematuria , unspecifi ed;Practi ce ID: [id number] Not Available [facility] 0 15:55:33 Microscop ic hematuria [id number] Active 2015 Other microscop ic hematuria ;Practice ID: 0001 Not Available [facility] 0 15:55:33 Specializ ed medical examinati on Active 2011 Routine gynecolog ical examinati on;Practi ce ID: 0001 Not Available [facility] 0 15:55:[address] Concept Active 2015 Encntr for general adult medical exam w/o abnormal findings; Recorded Elsewhere : No Locati on: [facility] So urce: EHR Chron ic: N Practic e ID: [id number] Bill able Time: 01:00:00 PM Not Available [facility] 0 15:55:[address] Concept Active 2015 Well woman check w/ abnormal finding;R ecorded Elsewhere : No Locati on: [facility] So urce: EHR Chron ic: N Practic e ID: 0001 Bill able Time: 01:00:00 PM Not Available [facility] 0 15:55:33 Asymptoma tic microscop ic hematuria [id number] 695132 Active 2017 Asymptoma tic microscop ic hematuria ;Recorded Elsewhere : No Locati on: [facility] So urce: EHR Chron ic: N Practic e ID: 0001 Bill able Time: 03:15:00 PM Not Available [facility] 0 15:55:33 Reduced libido 2679377 Active 2017 Decreased libido;Re corded Elsewhere : No Locati on: [facility] So urce: EHR Chron ic: N Practic e ID: 0001 Bill able Time: 03:15:00 PM Not Available [facility] 0 15:55:33 Finding of general energy 242840820 Active 2015 Fatigue;R ecorded Elsewhere : No Locati on: [facility] So urce: EHR Chron ic: N Practic e ID: 0001 Bill able Time: 01:00:00 PM Not Available [facility] 0 15:55:34 Problem Notes None recorded. Procedures Surgical History Date Name Laterality Status Provider Name and Address Organization Details Recorded Time hysterectomy completed [facility] 10/13/2022 15:36:18 cholecystectomy completed [facility] 10/13/2022 15:36:25 tonsillectomy completed MONIKA Morris [address], [place], [address], [facility] 07/20/2024 13:00:35 Knee arthroscopy/surgery completed MONIKA Morris [address], [place], [address], [facility] 07/20/2024 13:01:10 excision of cervical intervertebral disc completed MONIKA Morris [address], [place], [address], [facility] 07/20/2024 13:01:35 Elbow arthroscopy completed MONIKA Zuniga [address], [place], [address], [facility] 07/20/2024 13:01:43 Imaging Results None recorded. Procedure Notes None recorded. Medical Equipment None Reported. Allergies Allergen ID Allergen Name Allergen Category Reaction Reaction Severity Criticality Documentation Date Start Date Code Code System Note Provider Name and Address Organization Details Recorded Time 51830 clarithro mycin medicatio n Not available Not available Not available 07/19/2020 RxNorm React ion: rash , sore joint s; Comme nt: [facility]at [facility] sat[facility] e Agent : Biaxi n; Not Available [facility] 0 14:17:58 Biaxin medicatio n Not available Not available Not available 10/13/202208469 9 RxNorm Hatt[address] kramer, [facility] 3 15:15:30 gabapenti n medicatio n Not available Not available Not available 10/13/2022 90079 RxNorm Hattie Lopezvioleta r williams, [facility] 3 15:15:39 Medications Name Sig Start Date Stop Date Status Note LastModified by Organization Details LastModified Time amlodipin e 2.5 mg tablet take 1 tablet by oral route every day active Prescrib ed Elsewher e: Yes Loca tion: Lizz zaragoza [facility] odify By: césar cono DateTime : 07/05/20 18 03:15:00 PM Not Available Not Available Not Available amoxicill in 500 mg tablet take 1 tablet by oral route 3 times every day for 3 weeks 07/05 completed Prescrib ed Elsewher e: No Locat ion: Lizz zaragoza [facility] odify By: césar coon DateTime : 10/10/19 16 08:57:53 AM Not Available Not Available Not Available potassium 99 mg tablet 09/30 completed Prescrib ed Elsewher e: Yes Loca tion: Lizz zaragoza [facility] odify By: césar coon DateTime : 07/05/20 18 03:15:00 PM Not Available Not Available Not Available levothyro xine 500 mcg intraveno us powder for solution inject by intraven ous route every day 10/13 completed Prescrib ed Elsewher e: Yes Loca tion: Lizz zaragoza [facility] odify By: johnathan caryer DateTime : 10/01/19 16 01:00:00 PM Not Available Not Available Not Available trazodone 100 mg tablet take 1 tablet by oral route 2 times every day after meals 10/13 completed Prescrib ed Elsewher e: Yes Loca tion: Jailynwhitney mila [facility] odify By: [email or web address] trick En counter DateTime [...] Elsewher e: No Locat ion: Lizz zaragoza [facility] odify By: alma Odonnell er DateTime : 07/14/20 18 12:22:21 PM Not Available Not Available Not Available Pamelor 10 mg capsule take 1 capsule by oral route every day at bedtime 10/13 completed Prescrib ed Elsewher e: Yes Loca tion: Lizz zaragoza [facility] odify By: césar z Encoun ter [...] Prescrib ed Elsewher e: Yes Loca tion: Lziz zaragoza [facility] odify By: [email or web address] trick En counter DateTime : 06/13/20 12 05:30:00 PM Not Available Not Available Not Available folic acid 1 mg tablet take 1 tablet by oral route every day 10/13 completed Prescrib ed Elsewher e: Yes [facility] By: c[facility]ar z Encoun ter DateTime : 07/05/20 18 03:15:00 PM Not Available Not Available Not Available Levatol 20 mg tablet take 1 tablet by oral route every day 09/30 completed Prescrib ed Elsewher e: Yes Loca tion: Lizz zaragoza [facility] odify By: johnathan coreasunter DateTime : 06/13/20 12 05:30:00 PM Not Available Not Available Not Available Zoloft 100 mg tablet Take 1 tablet every day by oral route. active Not Available Not Available No t Available lisinopri l 2.5 mg tablet take 1 tablet by oral route every day 10/13 completed Prescrib ed Elsewher e: Yes Loca tion: Lizz zaragoza [facility] odify By: johnathan Zaragoza ncounter DateTime : 10/01/19 16 01:00:00 PM Not Available Not Available Not Available Nifedical XL 60 mg tablet,ex tended release take 1 tablet by oral route every day 09/30 completed Prescrib ed Elsewher e: Yes Loca tion: Lizz zaragoza [facility] odify By: johnathan Zaragoza ncounter DateTime : 06/13/20 12 05:30:00 PM Not Available Not Available Not Available Phenergan 25 mg/mL injection solution inject 1 millilit er by intramus cular route once, may repeat in 2 hours 10/13 completed Prescrib ed Elsewher e: Yes Loca tion: Lizz zaragoza [facility] odify By: césar szymanski Encoun ter DateTime [...] Elsewher e: Yes Loca tion: Lizz zaragoza [facility] odify By: césar z Encoun ter DateTime : 07/05/20 18 03:15:00 PM Not Available Not Available Not Available Flonase Allergy Relief 50 mcg/actua tion nasal spray,jere pension spray 1 - 2 spray by intranas al route every day in each nostril as needed active Prescrib ed Elsewher e: Yes Loca tion: Lizz zaragoza [facility] odify By: alejandrochult z Encoun ter DateTime [...] Updated DateTime 10/13/2022 165.1 cm 31.3 kg/m2 70649.37 g 130 mm[Hg] 87 mm[Hg] Hattie Wolf [facility] 3 16:00:11 Date Recorded Body height Body mass index (BMI) Body weight Systolic blood pressure Diastolic blood pressure Provider Name and Address Organization Details Last Updated DateTime 07/20/2024 165.1 cm 40 kg/m2 764770.6 1 g 128 mm[Hg] 84 mm[Hg] Pura Fisher [facility] 4 14:17:53 Social History Question Answer Notes LastModified by Organizat ion Details LastModified Time Tobacco Smoking Status Former Smoker Pura Fisher [facility] 07/20/2024 14:21:14 Are You Blind Or Do You Have Difficulty Seeing? No Information not available 10/13/2022 Are You Deaf Or Do You Have Serious Difficulty Hearing? No Information not available 10/13/2022 What Type Of Diet Are You Following? REGULAR Information not available 10/13/2022 Do You Have Difficulty Walking Or Climbing Stairs? No Information not available 10/13/2022 Sex: Unknown Functional Status Question Answer Note LastModified by Organizat ion Details LastModified Time What is your level of alcohol consumption? None Information not available 10/13/2022 Are you able [...] Hypertension, Cancer, breast Medical History Condition Response Other Y Blood Transfusion N Dermatologic Disorders Y Gestational Diabetes N Anxiety Disorder N Autoimmune disease N Arthritis N Polyps N Infertility N Acid Reflux (GERD) Y Cancer N Varicosities N Stroke N Neurologic/Epilepsy N Fibromyalgia N Headaches Y Kidney Disease N Heart Problems N Kidney or Bladder Problems N Eating Disorder N Art (IVF or FET) N Hepatitis/Liver Disease N No Past Medical History N Urinary Tract Infection N Asthma N Trauma/Violence N Thrombophilias N Allergies (Food, seasonal, environmental ) N Breast Cancer N Drug/Latex Allergies/Reactions N Lung Disease Y Defects or Inherited Disease N Breast Problem N Hematologic disorders N Anesthesia Complications N History of STI N Deep Vein Thrombosis N Polycystic ovary syndrome N History of abnormal pap N Endometriosis N High Cholesterol N Thyroid Problems Y GI Problems Y Anemia N Psychiatric Illness N Ovarian Cancer N Diabetes N Pulmonary (TB, Asthma) N Eczema N Abuse/Domestic Violence N Depression/ depression Y Heart Disease N Pre-Eclampsia N Hypertension Y Osteoporosis N Gynecological History Statement/Question Response STIs/STDs N [...] SNOMED-CT Code Diagnosis ICD10 Code Diagnosis Note [id number] MONIKA Morris [place] [address] [address] 10/13/2022 14:55:35 10/13/2022 16:13:58 Lesion of vulva 903963380 N90.89 HSV appearing lesionHSV PCR sentCultur e [...] plan of care. Venereal d isease screening 002492129 Z11.3 Sexually t ransmitted infectious disease 8372314 A64 [id number] MONIKA Morris [place] [address] [address] 07/20/2024 14:02:08 07/20/2024 14:59:04 Vulval irritation 035850393 N90.89 Candidiasis of skin 4988 3006 B37.2 [...] History of methicillin resistant Staphylococcus aureus infection 424043386 Z86.14 Health Concerns Section Related Observation LastModified by Organization Detai ls LastModified Time None Recorded Concern Status LastModified by Organization Details LastModified Time None Recorded Advance Directives Directive None Recorded Payers Encounter Date Sequence Insurance Name Policy Number Policy Jackson Covered Member ID Jackson Member ID Guarantor Name 10/13/2022 1 [facility] ON OR AFTER 01/30/21 (MEDICAID REPLACEMENT - HMO) Sunita L Camden [id number] Sunita L Camden 07/20/2024 1 [facility] ON OR AFTER 01/30/21 (MEDICAID REPLACEMENT - HMO) Sunita L Camden [id number] Sunita L Camden Notes Date Note Type Note Provider Name [...] of hyst MONIKA Morris [address], [place], [address], [facility] 10/13/2022 16:10:34 07/20/2024 text/html 63yopresents for evaluation of rashpresent x 2 weeksred/itchy rash on pannus, under breast, sides of abdomen, and vulvasaw her exhibits coordinator last week and prescribed nystatin cream - did not pick it up from the pharmacy. Has been using nystatin powder from her PCP.was in the hospital for COPD exacerbation last monthh/o MRSA on face in 2021 and vulvar lesion in 2022has appointment with dermatology coming up MONIKA Morris [address], [place], [address], [facility] 07/20/2024 14:58:48 OBGyn Episode Ob Episode Information Episode Created Date Number of Fetuses Patient Bloodtype Patient rh Status Prepregnancy Weight lbs Domestic Partner Domestic Partner Phone Father Name Vc++ Developer Status 10/14/19 23 1 CLOSED Fetus Data First Name Last Name Admitted to NICU Weight (g) Sex Living Outcome Pediatric Complications Fetus ID Race Codes Race Delivery Type [phone] M [id number] Vaginal Delivery Larry Calculation Initial Larry Date [...] Domestic Partner Domestic Partner Phone Father Name Vc++ Developer Status 10/14/19 23 1 CLOSED Fetus Data First Name Last Name Admitted to NICU Weight (g) Sex Living Outcome Pediatric Complications Fetus ID Race Codes Race Delivery Type [phone] F [id number] Vaginal Delivery Larry Calculation Initial Larry Date [...] Domestic Partner Domestic Partner Phone Father Name Vc++ Developer Status 10/14/19 23 1 CLOSED Fetus Data First Name Last Name Admitted to NICU Weight (g) Sex Living Outcome Pediatric Complications Fetus ID Race Codes Race Delivery Type [phone] [phone] F [id number] Vaginal Delivery Larry Calculation Initial Larry Date [...]
[2024-12-24 17:19] VITALS: BP 174/115; PULSE 88; RESP 20; TEMP 36.1; O2SAT 96
--- NOTE | 2024-12-24 17:54 | ED.SKABFB ---
HPI - Skin/Abscess/Foreign Bdy General Chief complaint: Skin/Abscess/Foreign Body Stated complaint: Skin Problem Time Seen by Provider: 12/24/24 17:35 Source: patient and RN notes reviewed Mode of arrival: ambulatory Limitations: no limitations History of Present Illness HPI narrative: 64-year-old female presents Express Care complaining of dry and itchy rash to her scalp and face a fungal infection to her groin. Patient says she has been here with multiple visits for skin problems was recently treated for impetigo. Patient's is impetigo has resolved however she continues to have dry itchy and scaly skin lesions to her scalp, face and redness and irritation to her groin. Patient has a history of COPD. Patient has yet to see a chili maker for these issues but says she has seen 1 before in the past. Patient denies any other symptoms. Denies any pain. Patient was using nystatin powder to her growing with no relief. Related Data Home Medications ?Medication ?Instructions ?Recorded ?Confirmed ?Last Taken ?Type sertraline 100 mg tablet 100 mg PO DAILY 11/29/22 03/10/23 11/28/22 14:00 History albuterol sulfate 90 mcg/actuation 2 inh inhalation Q4-6H PRN 02/26/23 03/10/23 Unknown History aerosol inhaler (ProAir HFA) Shortness Of Breath aripiprazole 15 mg tablet mg 12/05/24 Unknown History atorvastatin 40 mg tablet mg 12/05/24 Unknown History clonidine HCl 0.1 mg tablet mg 12/05/24 Unknown History deutetrabenazine 9 mg tablet mg PO 12/05/24 Unknown History (Austedo) duloxetine 30 mg capsule,delayed mg PO 12/05/24 Unknown History release duloxetine 60 mg capsule,delayed mg PO 12/05/24 Unknown History release hydroxyzine pamoate 50 mg capsule mg 12/05/24 Unknown History levothyroxine 150 mcg tablet mcg 12/05/24 Unknown History nystatin 100,000 unit/gram topical topical 12/05/24 Unknown History cream nystatin 100,000 unit/gram topical topical 12/05/24 Unknown History powder (Klayesta) pregabalin 75 mg capsule mg 12/05/24 Unknown History ropinirole 1 mg tablet mg 12/05/24 Unknown History tamsulosin 0.4 mg capsule mg PO 12/05/24 Unknown History Allergies Allergy/AdvReac Type Severity Reaction Status Date / Time sulfamethoxazole Allergy Mild JOINT Verified 12/24/24 17:45 SWELLING clarithromycin Allergy Unknown Swelling Verified 12/24/24 17:45 gabapentin Allergy Unknown Joint pain Verified 12/24/24 17:45 Influenza Virus Vaccines Allergy Unknown Unknown Verified 12/24/24 17:45 trimethoprim Allergy Unknown JOINT Verified 12/24/24 17:45 SWELLING codeine AdvReac Unknown NAUSEA - Verified 12/24/24 17:45 CAN TAKE LORTAB Review of Systems Review of Systems: CONSTITUTIONAL: Denies fever, chills, or sweats. EYES: Denies visual changes, redness, or discharge. ENT: Denies rhinorrhea, congestion, sore throat, or otalgia. CARDIOVASCULAR: Denies chest pain, palpitations, or edema. RESPIRATORY: Denies cough or dyspnea. GASTROINTESTINAL: Denies abdominal pain, nausea, vomiting, or diarrhea. GENITOURINARY: Denies dysuria or hematuria. SKIN: Positive for rash or itching. MUSCULOSKELETAL: Denies back pain, joint pain, or myalgia. NEUROLOGIC: Denies headache, numbness, or weakness. PSYCHIATRIC: Denies anxiety or depression. All other systems reviewed are negative, except as documented in HPI. [facility] Past Medical History Medical History Erosive gastritis Adenomatous colon polyp Nausea & vomiting GERD (gastroesophageal reflux disease) Chronic back pain Pancreatitis Diverticulosis Tracheostomy dependence COPD (chronic obstructive pulmonary disease) Peripheral neuropathy Seizures TIA (transient ischemic attack) Pneumonia Anxiety and depression Hypertension Hypothyroidism JULIAN (obstructive sleep apnea) Pulmonary emphysema Pure hypercholesterolemia Failure to thrive in adult Chemical dependency Surgical History Surgical History Hx of tonsillectomy Secondary to sepsis/ARDS Total knee replacement status Hx of cholecystectomy H/O neck surgery C6-7 fusion Family History Family History Sibling Patient's sister is in good health Patient's brother is in good health Depression Mother Family history of malignant neoplasm of breast in first degree relative, Onset Age: 26 Patient's mother is Father Patient's father is in good health Other Family history of alcoholism Family history of lung disease Family history of malignant neoplasm of male breast Family history of migraine headaches Family history of obesity Hypertension Social History Social History Social History: The patient continues to smoke 1/2 a pack of cigarettes per day. She lives home alone. She had 1 daughter who is now and she has two other children that her still living. She is currently seperated from her . She is disabled. Code status full code Smoking packs per day: 0.5 Smoking cigarettes per day: 10.0 Years smoked: 45 Smoking pack-years: 22.50 Smoking status: Current every day smoker Tobacco type: cigarettes Second hand tobacco smoke exposure: No Smoking end date: 08/02/15 Alcohol intake: former Alcohol use details: recovering alcoholic 2000 Substance use: former Substance use type: marijuana and methamphetamine Lack of Transportation: YES Lack of Food: Sometimes True Current Housing: I Have Housing Concerned About Future Housing: No Difficulty Paying Gas/Electric Bills: No Difficulty Paying for Meds: No Currently Unemployed: No Education: High School Diploma/GED Difficulty w/ Childcare or Family Care: No Living arrangements: alone Gender identity (if verbalized by the patient): Female Spiritual care concerns: No Comments At the time of my signature, I reviewed and agree with the nursing past medical, surgical, social, and family history. There is no relevant family history pertinent to the patient complaint. Exam Narrative: GENERAL: This is a well-nourished, well-developed adult, in no apparent distress. They are non ill-appearing, nontoxic appearing. HEAD: normocephalic, atraumatic. EYES: Sclera clear/white. Conjunctiva normal. Vision is grossly intact. Extraocular movements intact EARS: External ears normal, Hearing grossly intact. NOSE: External nose normal THROAT: Mucous membranes moist OROPHARYNX: No teeth are present NECK: Neck supple, CARDIOVASCULAR: Regular rate and rhythm RESPIRATORY: Or respiratory exam GASTROINTESTINAL: Abdomen soft, non-tender, nondistended. Bowel sounds are active. No hepato-splenomegaly, or palpable masses. No guarding. SKIN: Scalp: Dry, scaly, pruritic rash in the left temporal region of patient's scalp. No area of erythema, erythema, swelling, or discharge. Face: Dry scaly pruritic patches on patient's right side of her face erythema, swelling, or discharge. Groin: Groin with erythematous patches throughout and moist appearing with satellite lesions present. No swelling. No area of fluctuance or induration. NEURO: awake, alert, and oriented to person, place and time. There were no obvious focal neurologic abnormalities. EXTREMITIES: No joint tenderness, effusion, or edema noted. Course Course Emergency Course: Portions of this record may have been created with voice recognition software Level of Care: Express Care Visit Vital Signs Vital signs: Vital Signs Temperature 97.0 F L 12/24/24 17:19 Pulse Rate 88 12/24/24 17:19 Respiratory Rate 20 12/24/24 17:19 Blood Pressure 174/115 H 12/24/24 17:19 Pulse Oximetry 96 12/24/24 17:19 Oxygen Delivery Room Air 12/24/24 17:19 Temperature 97.0 F L 12/24/24 17:19 Pulse Rate 88 12/24/24 17:19 Respiratory Rate 20 12/24/24 17:19 Blood Pressure 174/115 H 12/24/24 17:19 Pulse Oximetry 96 12/24/24 17:19 Oxygen Delivery Room Air 12/24/24 17:19 Reviewed MDM - Skin/Abscess/Foreign Bdy MDM Narrative Medical decision making narrative: And appears patient likely has a seborrheic keratitis to scalp and face along with a tinea cruris to groin. Patient failed treatment with nystatin powder. Will prescribe ketoconazole shampoo and ketoconazole cream. Discussed physical exam findings. Advised supportive measures and signs/symptoms to go to the ER. Pt is appropriate for outpt treatment and f/u. Differential Diagnosis Differential diagnosis: Likely dermatophytosis, cellulitis, eczema and other (Psoriasis) Critical Care Time Critical Care Time Critical Care Time: No Discharge Plan Discharge Clinical Impression: Dermatitis, seborrheic, Fungal infection of the groin Patient Disposition: Home Condition: Stable Instructions: Skin Yeast Infection (ED), Seborrheic Dermatitis (DC) Additional Instructions: Use the ketoconazole shampoo as directed on your scalp for 4 weeks. Use the ketoconazole cream to the affected areas of your face and groin as directed for 4 weeks. Continues nystatin powder to groin. Keep your groin dry and free of moisture. Follow-up primary care provider in 3-5 days. You may need to see a chili maker for persistent skin issues. Please go home and take her blood pressure medications as soon as possible. If he develops any worsening symptoms, breathing problems, fevers, or any other concerns please go to the ER immediately. Patient Language: Ukrainian Prescriptions: New ketoconazole 2 % cream 1 applic topical BID 28 Days Qty: 60 0RF Rx Instructions: Apply to affected area on face and groin for 4 weeks. ketoconazole 2 % shampoo 1 applic topical 3XW 28 Days Qty: 120 0RF Rx Instructions: Apply to scalp No Action atorvastatin 40 mg tablet clonidine HCl 0.1 mg tablet ropinirole 1 mg tablet hydroxyzine pamoate 50 mg capsule tamsulosin 0.4 mg capsule PO nystatin 100,000 unit/gram cream TOPICAL levothyroxine 150 mcg tablet nystatin [Klayesta] 100,000 unit/gram powder TOPICAL aripiprazole 15 mg tablet duloxetine 30 mg capsule,delayed release(DR/EC) PO duloxetine 60 mg capsule,delayed release(DR/EC) PO pregabalin 75 mg capsule Austedo 9 mg tablet PO nystatin 100,000 unit/gram powder 1 applic topical BID Qty: 180 2RF Rx Instructions: Apply to bilateral inguinal(groin) region mupirocin [Centany] 2 % ointment 1 applic topical TID Qty: 50 1RF Rx Instructions: Apply to face and arms albuterol sulfate [ProAir HFA] 90 mcg/actuation HFA aerosol inhaler 2 inh inhalation Q4-6H PRN (Reason: Shortness Of Breath) sertraline 100 mg tablet 100 mg PO DAILY amlodipine 5 mg tablet 5 mg PO DAILY Qty: 30 5RF cyclobenzaprine 10 mg tablet 10 mg PO HS PRN (Reason: muscle spasm) Qty: 20 0RF Rx Instructions: must last 30 days levothyroxine 125 mcg tablet 125 mcg PO DAILY Qty: 90 0RF Follow-up/Referrals: Zee,Lianne Byrne MD [Primary Care Provider] - Time of Disposition: 17:52
== END 2024-12-24 17:57 | disposition home or self-care (01) ==
PROVIDERS: PCP Family Medicine
DX: L21.9 Seborrheic dermatitis, unspecified (principal); B36.9 Superficial mycosis, unspecified; K21.9 Gastro-esophageal reflux disease without esophagitis; J44.9 Chronic obstructive pulmonary disease, unspecified; G62.9 Polyneuropathy, unspecified; Z86.73 Personal history of transient ischemic attack (TIA), and cerebral infarction without residual deficits; I10 Essential (primary) hypertension; E03.9 Hypothyroidism, unspecified; E78.00 Pure hypercholesterolemia, unspecified; F41.9 Anxiety disorder, unspecified; F32.A Depression, unspecified
CPT/HCPCS: 99213; G0463

== ENCOUNTER 2025-04-07 15:20 | Emergency (ER) | payer OTHER, SELFPAY ==
--- OUTSIDE RECORDS SUMMARY | 2001-09-06 09:30 | XMS_ITS | Continuity of Care Document ---
Author Organization [facility] Address [address] [place] [address] [address] [place] [address] Phone Care Team Providers Care Reinforcing Bar Setter Name Role Phone Anitha Zaldivar Unavailable Unavailable Advance Directives Directive Yes / No Effective Date File Name No Information Encounters Encounter Description Practice Location Reason(s) For Visit Diagnoses Date Provider Providers Copied on Encounter [facility], [id number] [place] [address] [address], [place], [place], [id number], [place] tel:[phone] [facility] No Information Sep-0 [address] Kayley Welsh. [address] , [address], [place], [address], [place]. tel:[phone] Family History Family Member Type Diagnosis Age At Onset No Information Payers Payer name Insurance type Covered alliance party ID Authoriza tion(s) No Information Social History Type Description Quantity Date Captured Comments Sex Female Smoking Status No Information Chief Complaint And Reason For Visit No Information Reason For Referral Reason For Referral No Information History Of Present Illness Encounter Date Complaint History Of Prese nt Illness No Information Functional Status Date Functional Assessmen t No Information Instructions Date Instruction Additional Infor mation No Information Assessments Type Assessment Date No Information Patient Care Teams Name Effective Dates (start - stop) Status Members No Information
--- OUTSIDE RECORDS SUMMARY | 2001-09-06 09:30 | XMS_ITS | Continuity of Care Document ---
Author Organization [facility] Address [address] [place] [address] [address] [place] [address] Phone Care Team Providers Care Manager Nuclear Name Role Phone Anitha Zaldivar Unavailable Unavailable Advance Directives Directive Yes / No Effective Date File Name No Information Encounters Encounter Description Practice Location Reason(s) For Visit Diagnoses Date Provider Providers Copied on Encounter [facility], [id number] [place] [address] [address], [place], [place], [id number], [place] tel:[phone] [facility] No Information Sep-0 [address] Kayley Welsh. [address] , [address], [place], [address], [place]. tel:[phone] Family History Family Member Type Diagnosis Age At Onset No Information Payers Payer name Insurance type Covered constitution party ID Authoriza tion(s) No Information Social [...]
--- OUTSIDE RECORDS SUMMARY | 2025-03-07 08:20 | XMS_ITS ---
Author Organization [facility] Address [address] [place] [address] Care Team Providers Care Rubber Turner Name Role Phone Vicky Thurman Primary Care Provider [phone] REASON FOR VISIT 6 weeks Psych F/U & Med Refill Social History Sex Assigned At : Social History Observation Description Sex Assigned At Female Encounters Encounter Location Date Provider Diagnosis [facility] [address] [address] 03/07/2025 Vicky Thurman Plan Of Treatment Next Appt Details Provider Name:Vicky brown, 04/11/2025 03:20:00 PM, [address] [place], [address], Progress Notes * David DANIELSOB:1960 (64 yo F)Acc No.[id number]:03/07/2025 UNLOCKED PROGRESS NOTE Patient: Sunita BARRAGAN Provider: JELANI Nagel :1960 A ge:64 Y S ex:Female Date:03/07/2025 Address:[address], [address] , [facility] Subjective: * Chief Complaints: * 1 . 6 weeks Psych F/U & Med Refill. * Medical History: Objective: * Vitals: Assessment: Plan: * Treatment: * * Electronic signature of Víctor Thurman on 04/07/2025 at 03:23 PM CDT Sign off status: Pending * Provider: JELANI Nagel Date: 0 03/07/2025 Generated for Elder dejesus/Clarissa/Kemi on: 0 04/07/2025 03:23 PM CDT
--- OUTSIDE RECORDS SUMMARY | 2025-04-07 15:23 | XMS_ITS | Encounter Summary ---
Author Organization [facility] Address [address] [place] [address] Phone Care Team Providers Care Handyperson Name Role Phone Lianne Stack MD Primary Care Provider [phone] Ryan Figueroa MD Unavailable Gene Russell MD Unavailable [phone] Dorita Lacy APRN, [facility] Primary Care Provider [phone] Ramírez Sin MD Unavailable [phone] Melany Abreu APRN, [facility] Primary Care Provider Encounter Details Date Type Department Care Team (Late st Contact Info) Description 02/04/2024 Transcribe Orders [facility] Services [address] [place] [address] Logan Mancilla DO [address] [facility] [address] [place] [address] Polymyalgia rheumatica syndrome (HCC) (Primary Dx) Social History Tobacco Use Types Packs/Day Years Used Date Smoking Tobacco: Every Day Cigarettes 1 25.7 Started: 2000 Alcohol Use Standard Drinks/Week Comments No 0 (1 standard drink = 0.6 oz pur e alcohol) [facility] Utilities Answer Date Recorded In the past 12 months has e [employer], gas, oil, or water [employer] threatened to shut off services in your home? Patient declined 12/15/2023 Social Connection and Isolation Panel Answer Date Recorded In a typical week, how many times do you talk on the phone with family, friends, or neighbors? Patient declined 12/15/2023 How often do you get togethe r with friends or relatives? Patient declined 12/15/2023 How often do you attend spiritism or confucianist serv ices? Patient declined 12/15/2023 Do you belong to any clubs o r organizations such as spiritism groups, unions, fraternal or athletic groups, or [...] medical care, and heating? Patient declined 12/15/2023 [facility] Occupat ional Health - Occupational Stress [...] a fci (including now)? Patient declined 12/15/2023 Sexually Active Control Partners Comments Not Currently Comments No Sex and Gender Information Value Date Recorded Sex Assigned at Not on file Legal Sex Female 9:25 PM CDT Gender Identity Not on file Sexual Orientation Not on file documented as of this encounter Plan of Treatment Upcoming Encounters Date Type Department Care Team (Late st Contact Info) Description 06/05/2025 2:00 PM SIDE DOOR WORKER Office Visit [facility] - Endocrinology [facility] [address] [place] [address] Ramo Raygoza MD [address] [facility] [address] [place] [address] 10/01/2025 10:30 AM SIDE DOOR WORKER Office Visit [facility]Y [address] [place] [address] Ramírez Sin MD [address]2 [facility] [address] [place] [address] Scheduled Orders Name Type Priority Associated Diagnoses [...] CDT 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 02/25/2024 06/06/2024 9:53 AM SIDE DOOR WORKER COVID - 19 06/03/2024 06/03/2024 06/03/2024 12:0 0 PM CDT COVID - 19 10/08/2024 10/08/2024 10/08/2024 9:00 PM CDT COVID - 19 10/23/2024 10/23/2024 10/23/2024 1:09 AM CDT documented as of this encounter Care Teams Handyperson Relationship Specialty Start Date End Date Lianne Stack MD [address] [address] PCP - General Family Medicine 01/13/23 02/26/25 Dorita Lacy APRN, RESIDENTIAL FINISH CARPENTER [address] [place] [address] PCP - General Family Medicine 02/27/25 03/22/25 Melany Abreu APRN, RESIDENTIAL FINISH CARPENTER [address] [address] PCP - General Advanced Practice Nurse 03/23/25 Ryan Figueroa MD [address] [place] [address] Consulting Physician Pulmonary Disease 01/29/23 Gene Russell MD [address] [place] [address] Consulting Physician Neurology 01/28/24 Ramírez Sin MD [address]2 [facility], [address] [address] Consulting Physician Urology 03/20/25 documented as of this encounter
--- OUTSIDE RECORDS SUMMARY | 2025-04-07 15:23 | XMS_ITS | Encounter Summary ---
Author Organization [facility] Address [address] [place] [address] Phone Care Team Providers Care Gaming Worker Name Role Phone Lianne Stack MD Primary Care Provider [phone] Ryan Figueroa MD Unavailable Gene Russell MD Unavailable Dorita Lacy APRN, [facility] Primary Care Provider [phone] Ramíerz Sin MD Unavailable [phone] Melany Abreu APRN, [facility] Primary Care Provider Encounter Details Date Type Department Care Team (Late st Contact Info) Description 11/17/2023 Transcribe Orders [facility] [address] [place] [address] Lianne Stack MD [address] [place] [address] Orthopnea (Primary Dx) Social History [...] st Contact Info) Description 06/05/2025 2:00 PM SUPPLY CHAIN TECH Office Visit [facility] - [facility] - [place] [address] [place] [address] Ramo Raygoza MD [address]2 [facility] [address] [place] [address] 10/01/2025 10:30 AM SUPPLY CHAIN TECH Office Visit [facility] UROLOGY [address] [place] [address] Ramírez Sin MD #2 [facility] [address] [place] [address] documented as of this encounter Results * (ABNORMAL) CMP (COMPREHENSIVE METABOLIC PANEL) (11/17/2023 3:32 PM CDT) SODIUM 138 136 - 145 mmol/L 11/17/2023 5:37 PM CDT [facility] POTASSIUM 4.0 3.5 - 5.1 mmol/L 11/17/2023 5:37 PM CDT [facility] CHLORIDE 103 98 - 107 mmol/L 11/17/2023 5:37 PM CDT [facility] CO2, VENOUS 26 22 - 30 mmol/L 11/17/2023 5:37 PM CDT [facility] ANION GAP 13.0 <18.0 mmol/L 11/17/2023 5:37 PM CDT [facility] GLUCOSE 81 70 - 99 mg/dL 11/17/2023 5:37 PM CDT [facility] BUN 15 10 - 20 mg/dL 11/17/2023 5:37 PM CDT [facility] CREATININE, BLOOD 1.24(H) 0.60 - 1.00 mg/dL 11/17/2023 5:37 PM CDT [facility] BUN/CREATININE RATIO 12 12 - 20 ratio 11/17/2023 5:37 PM CDT [facility] TOTAL PROTEIN 7.1 6.3 - 8.2 g/dL 11/17/2023 5:37 PM CDT [facility] ALBUMIN 3.9 3.5 - 5.0 g/dL 11/17/2023 5:37 PM CDT [facility] A/G RATIO 1.2 1.0 - 2.2 11/17/2023 5:37 PM CDT [facility] CALCIUM 9.9 8.7 - 10.5 mg/dL 11/17/2023 5:37 PM CDT [facility] T BILI 0.3 0.2 - 1.2 mg/dL 11/17/2023 5:37 PM CDT [facility] SGOT (AST) 18 5 - 34 U/L 11/17/2023 5:37 PM CDT [facility] SGPT (ALT) 20 0 - 55 U/L 11/17/2023 5:37 PM CDT [facility] ALKALINE PHOSPHATASE 189(H) 40 - 150 U/L 11/17/2023 5:37 PM CDT [facility] IS THE PATIENT REQUIRED TO BE FASTING? No 11/17/2023 5:37 PM CDT [facility] GFR, ESTIMATED 49(L) >=60 11/17/2023 5:37 PM CDT [facility] Comment: Creatinine Clearance is the preferred criteria for selecting drug dose adjustments in renally impaired patients. The GFR is provided as additional pertinent clinical information. GFR is reported in mL/min/1.73 sq m. Calculation based on the Chronic Kidney Disease Epidemiology Collaboration (CKD- EPI) equation refit without adjustment for race. GFR, EST. 53(L) >=60 024 5:37 PM CDT [facility] GFR, EST. NONAFRICAN 44(L) >=60 11/17/2023 5:37 PM CDT [facility] Blood Venipuncture / Unknown 11/17/2023 3:32 PM CDT 11/17/2023 5:02 PM CDT Lianne Stack MD CHEMISTRY ORDERABLES Final Re sult Performing Organization Address City/[facility]/ZIP Co de Phone Number [facility] [address] [place] [address] * B-TYPE NATRIURETIC PEPTIDE (BNP) (11/17/2023 3:32 PM CDT) B TYPE NATRIURETIC PEPTIDE 16 <100 pg/mL 11/17/2023 6:30 PM CDT [facility] Blood Venipuncture / Unknown 11/17/2023 3:32 PM CDT 11/17/2023 5:02 PM CDT Lianne Stack MD CHEMISTRY ORDERABLES Final Re sult Performing Organization Address City/[facility] Co de Phone Number [facility] [address] [place] [address] documented in this encounter Visit Diagnoses Diagnosis Orthopnea- Primary documented in this encounter Additional Health Concerns Infection Onset Date Last Indicated Resolved Time COVID - 19 02/25/2024 02/25/2024 02/25/2024 4:10 AM CDT 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 02/25/2024 06/06/2024 9:53 AM SUPPLY CHAIN TECH COVID - 19 06/03/2024 06/03/2024 06/03/2024 12:0 0 PM CDT COVID - 19 10/08/2024 10/08/2024 10/08/2024 9:00 PM CDT COVID - 19 10/23/2024 10/23/2024 10/23/2024 1:09 AM CDT documented as of this encounter Care Teams Gaming Worker Relationship Specialty Start Date End Date Lianne Stack MD [address] [place] [address] PCP - General Family Medicine 01/13/23 02/26/25 Dorita Lacy APRN, REMEDIATION TECHNICIAN [address] [place] [address] PCP - General Family Medicine 02/27/25 03/22/25 Melany Abreu APRN, REMEDIATION TECHNICIAN [address] [address] PCP - General Advanced Practice Nurse 03/23/25 Ryan Figueroa MD [address] [place] [address] Consulting Physician Pulmonary Disease 01/29/23 Gene Russell MD [address] [place] [address] Consulting Physician Neurology 01/28/24 Ramírez Sin MD #[address] [address] Consulting Physician Urology 03/20/25 documented as of this encounter
--- OUTSIDE RECORDS SUMMARY | 2025-04-07 15:23 | XMS_ITS | Patient Health Record ---
Author Organization On license of [facility] Address [address] [place] [address] Care Team Providers Care Gold Frame Assembler Name Role Phone Vicky Thurman Primary Care Provider [phone] Patrizia Hui Unavailable [phone] Allergies Allergen (clinical drug ingredient) Drug/Non Drug Allergy documented on EMR Reaction Allergy Type Onset Date Status Biaxial (uncoded) joint welling Allergy Active codeine Codeine vomiting Drug Allergy Active gabapentin Gabapentin joint swelling Drug Allergy Active Reason For Referral No Information Medications Medication SIG (Take, Route, Frequency, Duration) Notes Start Date End Date Status Irbesartan 150 MG 1 tablet Orally Once a day Unknown Pantoprazole Sodium 40 MG 1 tablet 1/2 t o 1 hour before morning meal Orally twice a day Unknown predniSONE 5 MG 1 tablet with food o r milk Orally Once a day Unknown Cymbalta 60 MG 1 capsule Orally Onc e a day; Duration: 30 days Active Zoloft 100 MG 1 tablet at bedtime Orally Once a day; Duration: 30 days Active Sertraline HCl 50 MG 1 tablet Orally Onc e a day; Duration: 30 days 01/17/2025 Active Docusate Sodium 100 MG Oral; Duration: 30 Days Active Abilify 15 MG 1 tablet at bedtime Orally Once a day; Duration: 30 days Active cloNIDine HCl 0.1 MG 1 tablet as needed. Orally Once a day; Duration: 30 days Active Norvasc Unknown Metoprolol Tartrate 25 MG 1 tablet with food Orally Twice a day Unknown Austedo 9 MG 1 tablet with food Orally Twice a day; Duration: 30 days Active amLODIPine Besylate 5 MG TAKE 1 TABLET B Y MOUTH DAILY Oral; Duration: 30 Days Active hydrOXYzine HCl 50 MG 1 tablet as needed Orally three times a day; Duration: 30 days Active oxyCODONE-Acetaminophen 5-325 MG TAKE 1 TO 2 TABLETS BY MOUTH EVERY 4 HOURS NEEDED FOR MODERATE TO SEVERE PAIN. NO MORE THAN 8 TABLETS PER DAY. Oral; Duration: 2 Days Active Anoro Ellipta 62.5-25 MCG/ACT 1 puff Inhalation Once a day Unknown Cymbalta 30 MG 1 capsule Orally Onc e a day; Duration: 30 days Active amLODIPine Besylate 5 MG 1 tablet Orally Once a day Unknown Atorvastatin Calcium 40 MG 1 tablet Oral ly Once a day Unknown Levothyroxine Sodium 125 MCG 1 tablet in the morning on an empty stomach Orally Once a day Unknown rOPINIRole HCl 1 MG 1 tablet Orally Once a day Unknown Nystatin 754826 UNIT/GM 1 application Externally Twice a day Unknown Nystatin - as directed Unknown Cyclobenzaprine HCl 10 MG 1 tablet Orall y twice a day Unknown Lidocaine 5 % 1 patch remove after 12 hours Externally Once a day Unknown Social History Tobacco Use: Social History Observation Description Date Details (start date - stop date) Former Smoker NA - NA Sex Assigned At : Social History Observation Description Sex Assigned At Female PRAPARE Question Answer Notes Date Completed/Updated: 01/17/2025 What is your current housing situation? I have h ousing Are you worried about losing your housing? No What is the highest level of school that you have finished? Less than a high school degree What is your current work situation? Oth erwise unemployed but not seeking work (ex. 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 Stress is when someone feels tense, nervous, anxious, or can\t sleep at night because their mind is troubled Quite a bit In the past year have you sp ent more than 2 nights in a row in a assisted, fpc, jail center, or juvenile correctional facility? No Do you feel physically and e motionally safe where you currently live? Yes In the past year, have you b een afraid of your partner or ex-partner? No PRAPARE Score: 7 Tobacco Control (Standard) Question Answer Notes Tobacco use: Former smoker How long has it been since you last smoked? 1-3 months Problems Problem Type SNOMED Code ICD Code Onset Dates Problem Status W/U Status Risk Notes Problem Depression (147326240) Depression (F32.9) Active confirmed Problem Anxiety (47071840) Anxiety (F41.9) Active confirmed Problem Insomnia due to mental disorder (36942162) Insomnia due to mental disorder (F51.05) Active confirmed Vital Signs Heart Rate 62 /min 01/17/2025 Respiratory Rate 14 /min 01/17/2025 Blood pressure diastolic 86 mm Hg 01/17/2025 Oximetry 90 % 01/17/2025 Blood pressure systolic 112 mm Hg 01/17/2025 Encounters Encounter Location Date Provider Diagnosis [address] [address] 01/17/2025 Vicky Thurman Anxiety F41.9 ; Depression F32.9 and Insomnia due to mental disorder F51.[address] [place] [address] 01/17/2025 Patrizia Hui [address] [address] 03/21/2025 Vicky Thurman Depression F32.9 ; Anxiety F41.9 and Insomnia due to mental disorder F51.[address] [place] [address] 10/25/2024 Vicky Thurman [address] [place] [address] 11/01/2024 Vicky Thurman [address] [place] [address] 11/21/2024 Vicky Thurman [address] [address] 12/07/2024 Vicky Thurman [address] [place] [address] 12/15/2024 Vicky Howardstephanie [address] [place] [address] 12/21/2024 Vicky Thurman Assessments Encounter Date Diagnosis (ICD Code) Assessment Notes Treatment Notes Treatment Clinical Notes Section Notes 01/17/2025 Depression (ICD-10 - F32.9) increased sertraline for aniety but also beneficial for depression Pt aware to call 911 and or [phone] if having thoughts of suicide plan or intent or having homicidal ideations. Pt voiced understanding. 01/17/2025 Anxiety (ICD-10 - F41.9) increase sertraline to 150mg once daily. Pt agreeable to increase Take medications as prescribed. Discussed possible SEs, risks, and benefits. Reviewed black box warning for possible SI. Continue with regular exercise and a healthy, balanced diet. Follow up with the counselor as discussed. Pt advised to call or seek immediate medical attention if they develop any new or worsening symptoms. Patient instructed to call or seek medical attention if any new or worsening symptoms. Red flag symptoms/indication s for trip to ER reviewed. Patient/caregiver voiced understanding and agreement with the above. 03/21/2025 Depression (ICD-10 - F32.9) Pt and I discussed holding off on med changes as doesnt have her current med list infront of her. She will call the office sometime this week and get her med list updated and we will then discuss if any changes need to be made. [place] agreeable. [place] at this [place] continue current meds Pt aware to call 911 and or [phone] if having thoughts of suicide plan or intent or having homicidal ideations. Pt voiced understanding. Serotonin syndrome: This syndrome is composed a number of symptoms indicating that the person has too much serotonin, and it is potentially fatal. Symptoms include agitation, hallucinations, stiff muscles, loss of coordination, tremors, high temperature, flushing, fast heartbeat, sweating, dizziness, nausea/vomiting/nahid rrhea, seizures, and coma. 03/21/2025 Anxiety (ICD-10 - F41.9) Discussed anxiety and ways to avoid triggers and reduce anxious states continue current meds Appears stable at this time 03/21/2025 Insomnia due to mental disorder (ICD-10 - F51.05) continue current meds Appears stable at this time Sleep Hygiene- Go to bed and get up at the same time every day. Keep bedroom quiet, relaxing, and at a cool temperature. Turning off electronic devices at least 30 minutes before bedtime. Avoiding large meals and alcohol before bedtime. Avoiding caffeine in the afternoon or evening. Exercising regularly and maintaining a healthy diet. Utilize bed for sleep Encourage patient to have all electronics often hour before bed. Encourage a bedtime routine. 01/17/2025 Insomnia due to mental disorder (ICD-10 - F51.05) cont current meds 12/05/2024 Other Clin[facility] to assess needs and preferences for services. Clinician explored therapy goals, history of engagement, psychiatric history and diagnosis. Clinician provided education on same day call in therapy, traditional therapy and control and recovery special tactics services. Referrals for preferred methods will be sent following appointment. 01/17/2025 Other Clinician met w [facility] client to assess needs for residential services. Clinician gathered information regarding historical presentation of mental health and substance use symptoms including withdrawal, HIV Risk assessment, psychiatric hospitalization history and presenting concern. Clinician conducted PHQ9 and CSSRS assessments as well as social drivers of health screening for the purposes of identifying additional service needs. Plan Of Treatment Next Appt Details Provider Name:Vicky Lawrence , 04/11/2025 03:20:00 PM, [address] [place] [address], [phone], Insurance Providers Payer Name Payer Address Payer Phone Subscriber Number Group Number Insured Name Patient Relationship to Insured Coverage Start Date Coverage End Date [facility] Attn Claims Department [address] [place] [id number] [phone] [id number] Sunita Daniels Self - patient is the insured [address] [place] [address] [facility] Attn Claims Department [address] [place] [address] [phone] [id number] Sunita Daniels Self - patient is the insured [address] [place] [address] Attn Claims Department [address] [place] [phone] [id number] Sunita Daniels Self - patient is the insured 5 Medical (General) History Hospitalization History Reason Date(Month/Year) COPD TIA, blood pressure, constipation
--- OUTSIDE RECORDS SUMMARY | 2025-04-07 15:23 | XMS_ITS | Clinical Summary ---
Author Organization [facility] Address [address] [place] [address] Care Team Providers Care General Lot Attendant Name Role Phone Lianne Stack MD Primary Care Provider [phone] Source Comments [facility],non-owned Affiliates and Associated Physician Practices is amultiple site organization consisting of ambulatory clinics and hospital sitesin [place], [place], [place] and [place]. This disclosure is being madepursuant to the Care Everywhere program and may not contain all information available regarding this patient. Last updated 18.[facility] Allergies Active Allergy Reactions Criticality Noted Date [...] naloxone HCl (Narcan) 4 MG/0.1ML nasal spray [place] 1 (one) spray into the nose as [...] mouth daily before breakfast Active nystatin (Mycostatin) 556911 UNIT/GM creamIndications :Cutaneous Candidiasis Apply to affected [...] 02/15/2020 Assessment & Plan (10/10/2020 4:34 PM MOLDING LINE OPERATOR): - BSA < 5% - Encouraged to [...] dorsum. Will call with culture results - [place] skin care reviewed - Referral to Rheumatology [...] (obstructive sleep apnea) 02/10/2018 Overview (02/10/2018): Overview: ([facility] - repeated - at time [...] 10/10/2020 Assessment & Plan (10/10/2020 4:35 PM MOLDING LINE OPERATOR): - Cont Hibaclens daily Dizziness 08/29/2019 10/18/2024 SOB (shortness of breath) 08/29/2019 Methamphetamine abuse 08/29/20192024 Near syncope 08/29/2019 10/18/2024 History of pancreatitis 02/10/201809/30 History of Helicobacter pylori infection 02/10/2018 10/18/2024 History of alcohol use 07/31/201610/18 Overview (02/10/2018): Overview: In questionnaire reported 12 pack/day until 1996. Secondary hypertension 07/31/201610/18 Lightheadedness 04/30/2016 10/18/2024 Immunizations Immunization Administration Dates Next Due TDAP [...] on file Legal Sex Female 6:25 AM MOLDING LINE OPERATOR Gender Identity Not on file Sexual Orientation [...] Oxygen Concentration 35% 09/07/2019 1 2:25 AM MOLDING LINE OPERATOR Weight 106.6 kg (235 lb) 10/18/2024 11:21 AM CDT Height 170.2 cm (5' 7) 07/06/2024 12:54 PM MOLDING LINE OPERATOR Body Mass Index 36.81 07/06/2024 12:54 PM MOLDING LINE OPERATOR Plan of Treatment Health Maintenance Due Date [...] 02/07/2024 02/06/2023 COVID-19 VACCINE (2 - season) 2025 04/09/2021 INFLUENZA VACCINE (#1) 2025 SCREENING FOR DIABETES 07/13/2025 , 07/14/2021, [...] COMPREHENSIVE METABOLIC PANEL Routine 07/13/2022 2:07 PM MOLDING LINE OPERATOR Arthralgia, unspecified joint MAMMO BILAT SCREENING Routine 03/18/2020 1:16 PM CDT Encounter for screening mammogram for breast cancer HIV-1 HIV-2 ANTIGEN/ANTIBODY STAT 08/28/2019 4:47 PM MOLDING LINE OPERATOR HEPATITIS C ANTIBODY Routine 06/08/2019 1:05 PM MOLDING LINE OPERATOR Psoriasis Arthralgia, unspecified joint from Last 3 Months or Most Recently Relevant to Health Maintenance Results * (ABNORMAL) COMPREHENSIVE METABOLIC PANEL (07/13/2022 2:07 PM MOLDING LINE OPERATOR) BUN 17 7 - 26 mg/dL 07/13/2022 2:55 PM [facility] Creatinine 1.03(H) 0.56 - 0.96 mg/dL 07/13/2022 2:55 PM [facility] Sodium 137 136 - 145 mmol/L 07/13/2022 2:55 PM [facility] Potassium 4.2 3.5 - 4.5 mmol/L 07/13/2022 2:55 PM [facility] Chloride 104 98 - 107 mmol/L 07/13/2022 2:55 PM [facility] CO2 28 22 - 29 mmol/L 07/13/2022 2:55 PM [facility] Glucose 88 70 - 115 mg/dL 07/13/2022 2:55 PM [facility] Calcium 9.3 8.4 - 10.2 mg/dL 07/13/2022 2:55 PM [facility] Protein Total 7.0 6.0 - 8.3 g/dL 07/13/2022 2:55 PM [facility] Albumin 3.4 3.4 - 5.0 g/dL 07/13/2022 2:55 PM [facility] Bilirubin Total 0.3 0.2 - 1.2 mg/dL 07/13/2022 2:55 PM [facility] Alkaline Phosphatase 161(H) 40 - 150 U/L 07/13/2022 2:55 PM [facility] ALT 45 5 - 55 U/L 07/13/2022 2:55 PM [facility] AST 31 5 - 34 U/L 07/13/2022 2:55 PM [facility] Anion Gap 9 8 - 18 07/13/2022 2:55 PM [facility] BUN/Creatinine Ratio 17 7 - 23 07/13/2022 2:55 PM [facility] Osmolality Calculated 285 270 - 300 mOsm/kg 07/13/2022 2:55 PM [facility] Albumin/Globulin Ratio 0.9(L) 1.1 - 2.3 07/13/2022 2:55 PM [facility] eGFR by CKD-EPI 62(L) >=90 mL/min/1.7 3 m2 07/13/2022 2:55 PM [facility] Blood BLOOD SPECIMEN / Unknown Lab Venipuncture / Unknown 07/13/2022 2:07 PM MOLDING LINE OPERATOR 07/13/2022 2:26 PM [facility] Tae Bassett MD LAB - CHEMISTRY ORDERABLES Final Result [facility] [address] [place] [address], [facility] [phone] * Screening mammogram-[facility] (03/18/2020 1:16 PM CDT) Anatomical Region Laterality Modality Breast Bilateral Mammography 03/19/2020 8:39 AM CDT Impressions 03/19/2020 9:19 AM CDT IMPRESSION: No mammographic evidence of malignancy. ASSESSMENT: BI-RADS Category 1: Negative mammogram. RECOMMENDATION: Bilateral screening mammogram in one year. Dictated by Barbara Beck MD (vice president business development). I, Dr. HADLEY POWELL M.D. have personally reviewed and interpreted this examination/study. This report was electronically signed by HADLEY POWELL M.D. on 03/19/2020 9:19 AM . Narrative 03/19/2020 9:19 AM CDT SCREENING MAMMOGRAM DATE: 03/18/2020. COMPARISON: 09/25/2014 and priors dating back to 10/22/[address] [facility]. HISTORY: Screening mammogram. TECHNIQUE: Images were performed [...] * HIV-1 HIV-2 ANTIGEN/ANTIBODY (08/28/2019 4:47 PM MOLDING LINE OPERATOR) [facility] HIV Antigen/Antibod y 1 & 2 Non-reacti ve Non-react tommy 08/28/2019 5:38 PM MOLDING LINE OPERATOR [facility] Comment: Neither HIV-1 p24 Antigen nor HIV-1/HIV-2 Antibodies are detected. Blood BLOOD SPECIMEN / Unknown Venipuncture / Unknown 08/28/2019 4:47 PM MOLDING LINE OPERATOR 08/28/2019 4:52 PM MOLDING LINE OPERATOR Makayla Zaldivar MD LAB - HEMATOLOGY ORDERABLES Shelby l Result Performing Organization Address City/[facility]/ZIP Co de Phone Number [address] [phone] * HEPATITIS C ANTIBODY (06/08/2019 1:05 PM MOLDING LINE OPERATOR) [facility] Hepatitis C Antibody Non-react tommy Non-reac tive 06/08/2019 2:14 PM MOLDING LINE OPERATOR [facility] Comment: Hepatitis C Antibody screen indicates [...] Lab Venipuncture / Unknown 06/08/2019 1:05 PM MOLDING LINE OPERATOR 06/08/2019 1:17 PM MOLDING LINE OPERATOR Michelle Agee MD LAB - CHEMISTRY ORDERABLES F inal Result Performing Organization Address City/[facility]/ZIP [place] [address], [place] [phone] from Last 3 Months or Most Recently Relevant to Health Maintenance Insurance [address] [place] [address] [facility] [address] [place] [place] [id number] [place] [address] [address] [place] [address] [facility] Advance Directives * Full Code (Latest Code Status on File) Date Activated Date Inactivated Comments 09/05/2019 9:30 PM 09/07/2019 10:27 PM * Full Code Date Activated Date Inactivated Comments 08/29/2019 1:36 AM 08/29/2019 4:13 PM Care Teams General Lot Attendant Relationship Specialty Start Date End Date Lianne Stack MD [address] [place] [address] PCP - General Family Medicine 07/06/24
--- OUTSIDE RECORDS SUMMARY | 2025-04-07 15:23 | XMS_ITS | Clinical Summary ---
Author Organization [facility] Address [address] [place] [address] Care Team Providers Care Pipe Organ Mechanic Name Role Phone Ryan Figueroa MD Unavailable Gene Russell MD Unavailable [phone] Ramírez Sin MD Unavailable [phone] Melany Abreu APRN, TOY ELECTRIC TRAIN REPAIRER Primary Care Provider Allergies Active Allergy Reactions Criticality Noted Date Comments Clarithromycin Other (see Comments) 08/28/2015 JOINTS SWELL Gabapentin Other (see Comments) 12/15/2023 Joints swell Medications albuterol 108 (90 Base) MCG/ACT Aerosol Solution take 2 Puffs by inhalation every 4 hours as needed. Active ARIPiprazole (ABILIFY) 10 MG Tablet Take 15 mg by mouth nightly. Active sertraline (ZOLOFT) 100 MG Tablet Take 100 mg by mouth nightly. Active atorvastatin (LIPITOR) 40 MG Tablet Take 40 mg by mouth daily. 02/10/20 23 Active clobetasol (TEMOVATE) 0.05 % Cream Apply 2 times daily as needed for Other. Elbows and knees Active irbesartan (AVAPRO) 150 MG Tablet Take 1 Tablet by mouth daily. 11/03/19 24 Active OXYGEN CONCENTRATOR 4 Units/L by Does not apply route continuous. 4L via nasal canula Active Umeclidinium-Srini anterol (ANORO ELLIPTA) 62.5-25 MCG/ACT AEROSOL POWDER, BREATH ACTIVATEDIndicat ions:Other emphysema (HCC) take 1 Puff by inhalation daily. 30 Each 3 01/07/20 24 Active DULoxetine (CYMBALTA) [address] Particles Take 60 mg by mouth daily. 02/04/20 24 Active cloNIDine (CATAPRES) 0.1 MG Tablet [...] EVERY NIGHT 90 Tablet 11/11/19 25 Active levothyroxine (SYNTHROID) 125 MCG Tablet Take 1 Tablet by mouth every morning (before breakfast) for 90 days. 90 Tablet 03/10/20 25 025 Active docusate sodium (COLACE) 100 MG Capsule Take 1 Capsule by mouth 2 times daily. 180 Capsule 03/11/20 25 Active oxyCODONE-acetam inophen (Percocet) 5-325 MG TabletIndication s:Headache Take 1-2 Tablets by mouth every 4 hours as needed for Moderate or more severe pain. 12 Tablet 03/16/20 25 Active amLODIPine (NORVASC) 5 MG Tablet Take 1 Tablet by mouth daily. 30 Tablet 03/16/20 25 Active levothyroxine (SYNTHROID) 125 MCG Tablet Take 150 mcg by mouth every morning (before breakfast). 025 Discontinued cefdinir (OMNICEF) 300 MG Capsule Take 1 Capsule by mouth 2 times daily for 10 days. 20 Capsule 03/22/20 25 025 Active Problems Problem Noted Date Diagnosed Date Stage III chronic kidney disease 03/07/2025 Hyperlipidemia 03/07/2025 Anxiety 03/07/2025 Hypoxia 10/23/2024 COPD exacerbation 10/09/2024 Chronic respiratory failure with hypoxia 025 Chronic respiratory failure 12/17/2023 Supplemental oxygen dependent 12/17/2023 Leukocytosis 12/15/2023 Hypertension 12/15/2023 Hypothyroidism 12/15/2023 Polymyalgia rheumatica 12/15/2023 Depression 12/15/2023 Tobacco dependence 12/15/2023 Disorder of diaphragm 11/29/2023 Other emphysema 01/29/2023 JULIAN (obstructive sleep apnea) 01/29/2023 Gastroesophageal reflux disease without esophagi tis 01/29/2023 Restless legs syndrome (RLS) 01/29/2023 Thyroid disease Overview (02/25/2024): HYPOTHYROIDISM COPD (chronic obstructive pulmonary disease) Fibromyalgia Seizure Overview (02/25/2024): seizure like actvity Resolved Problems Problem Noted Date Diagnosed Date Resolved Date COPD with acute exacerbation 06/03/2024 06/06/2024 Acute on chronic respiratory failure with hypoxia 02/25/2024 06/15/2024 Tobacco use disorder, continuous 12/17/2023 01/03/2024 COPD exacerbation 12/15/2023 12/17/2023 Tobacco use disorder 01/29/2023 024 TIA (transient ischemic attack) 03/10/2025 Encounters Date Type Department Care Team Description 03/26/2025 10:15 AM CDT Office Visit [facility] [address] [place] [phone] Ramírez Sin MD Urinary retention (Primary Dx) Discharge Disposition: Discharged to home or Selfcare 03/26/2025 Travel 03/22/2025 4:19 PM CDT - 03/22/2025 7:39 PM CDT Emergency [facility] Emergency [address] [place] [id number] Vinnie Paul MD Folkert, Gregory Dewitt, MD Figueredo catheter problem, initial encounter (HCC) Discharge Disposition: Discharged to home or Selfcare 03/22/2025 Travel 03/22/2025 Transcribe Orders [facility] Central Scheduling [address] [place] [address] Melany Abreu M, FIELD CROP II FARMWORKER, TOY ELECTRIC TRAIN REPAIRER Encounter for screening mammogram for malignant neoplasm of breast (Primary Dx); Cigarette nicotine dependence with withdrawal; Cigarette nicotine dependence, uncomplicated 03/16/2025 12:31 AM CDT - 03/16/2025 5:38 AM CDT Emergency [facility] Emergency [address] [place] [address] Jim Garrido MD Hypertension Discharge Disposition: Discharged to home or Selfcare 03/16/2025 Travel 03/07/2025 3:33 PM CDT - 03/11/2025 1:40 PM CDT Hospital Encounter [facility] Medical/Surgical Intensive Care [address] [place] [address] Celia Jay MD Patel, Satyen V, MD TIA (transient ischemic attack) Discharge Disposition: Home Health Care [facility] 03/07/2025 Travel 03/02/2025 Telephone [facility] [address] [place] [phone] Lashawn Saba Patient Outreach 02/27/2025 6:53 PM CDT - 02/27/2025 8:54 PM CDT Emergency [facility] Emergency [address] [place] [address] Mathew Bower PAC Furry, Craig William, MD Hypokalemia Discharge Disposition: Discharged to home or Selfcare 02/27/2025 Travel from Last 3 Months Immunizations Immunization Administration Dates Next Due Covid-19, Mrna, Lnp-s, Pf, 30 Mcg/0.3 Ml Dose (P fizer) 04/09/2021 Family History Medical History Relation Name Comments Emphysema Father Hypertension Father Breast Cancer Mother Cancer Mother Relation Name Status Comments Father Alive Mother Social History Tobacco Use Types Packs/Day Years Used Date Smoking Tobacco: Former Cigarettes 1 25.7 S tarted: 1999 Alcohol Use Standard Drinks/Week Comments No 0 (1 standard drink = 0.6 oz pur e alcohol) Social Connection and Isolation Panel Answer Date Recorded In a typical week, how many times do you talk on the phone with family, friends, or neighbors? Patient declined 10/23/2024 How often do you get togethe r with friends or relatives? Patient declined 10/23/2024 How often do you attend presybeterian or mandaen serv ices? Never 10/23/2024 Do you belong to any clubs o r organizations such as presybeterian groups, unions, fraternal or athletic groups, or school groups? Patient declined 10/23/2024 How often do you attend meet ings of the clubs or organizations you belong to? Never 10/23/2024 Are you , , di vorced, , never , or living with a partner? 10/23/2024 Housing Stability Vital Sign Answer Nehemias [...] place to sleep or slept in a mcfp (including now)? Patient declined 12/15/2023 Housing Stability [...] any time in the past 12 m [facility], were you homeless or living in a mcfp (including now)? No 10/23/2024 Social Connection and Isolation Panel Answer Date Recorded In a typical week, how many times do you talk on the phone with family, friends, or neighbors? Never 03/07/2025 How often do you get together with friends or re latives? Never 03/07/2025 How often do you attend presybeterian or mandaen serv ices? Never 03/07/2025 Do you belong to any clubs o r organizations such as presybeterian groups, unions, fraternal or athletic groups, or school groups? No 03/07/2025 How often do you attend meet ings of the clubs or organizations you belong to? Never 03/07/2025 Are you , , di vorced, , never , or living with a partner? 03/07/2025 AUDIT-C Answer Date Recorded Q1: How often do you have a drink containing alcohol? Never 03/07/2025 Q2: How many drinks containi ng alcohol do you have on a typical day when you are drinking? Patient does not drink Q3: How often do you have si x or more drinks on one occasion? Never 03/07/2025 Overall Financial Resource Strain (CARDIA) Answe r Date Recorded How hard is it for you to pa y for the very basics like food, housing, medical care, and heating? Hard 03/07/2025 [facility] - Occupational Stress Questionnaire Answer Date Recorded Do you feel stress - tense, restless, nervous, or anxious, or unable to sleep at night because your mind is troubled all the time - these days? To some extent 03/07/2025 Exercise Vital Sign Answer Date Recorde d On average, how many days pe r week do you engage in moderate to strenuous exercise (like a brisk walk)? 0 days 03/07/2025 On average, how many minutes do you engage in exercise at this level? 0 min 03/07/2025 Hunger Vital Sign Answer Date Recorded Within the past 12 months, y ou worried that your food would run out before you got the money to buy more. Never true 03/07/20 25 Within the past 12 months, t he food you bought just didn't last and you didn't have money to get more. Never true 03/07/2025 PRAPARE - Transportation Answer Date Re corded In the past 12 months, has l ack of transportation kept you from medical appointments or from getting medications? No 12/2024 In the past 12 months, has l ack of transportation kept you from meetings, work, or from getting things needed for daily living? No 03/07/2025 Housing Stability Vital Sign Answer Nehemias e Recorded In the last 12 months, was t here a time when you were not able to pay the mortgage or rent on time? No 03/07/2025 In the past 12 months, how m any times have you moved where you were living? 0 03/07/2025 At any time in the past 12 m [place], were you homeless or living in a mcfp (including now)? No 03/07/2025 [facility] Utilities Answer Date Recorded In the past 12 months has e [employer], gas, oil, or water [employer] threatened to shut off services in your home? No 03/07/2025 Sexually Active Control Partners Comments Not Currently Comments No Sex and Gender Information Value Date Recorded Sex Assigned at Not on file Legal Sex Female 9:25 PM CDT Gender Identity Not on file Sexual Orientation Not on file Last Filed Vital Signs Vital Sign Reading Time Taken Comments Blood Pressure 116/93 03/26/2025 9:44 AM CDT Pulse 98 03/26/2025 9:44 AM CDT Temperature 36.6 C (97.8 F) 03/22/2025 4:21 PM CDT Respiratory Rate 18 03/26/2025 9:44 AM CDT Oxygen Saturation 97% 03/22/2025 7:30 PM CDT Inhaled Oxygen Concentration - - Weight 90.7 kg (200 lb) 03/26/2025 9:44 AM CDT Height 167.6 cm (5' 6) 03/26/2025 9:44 AM CDT Body Mass Index 32.28 03/26/2025 9:44 AM CDT Plan of Treatment Upcoming Encounters Date Type Department Care Team (Late st Contact Info) Description 06/05/2025 2:00 PM LEAD TANK MECHANIC Office Visit [facility] [place] [address] [place] [phone] Ramo Raygoza MD [address] [phone] 10/01/2025 10:30 AM LEAD TANK MECHANIC Office Visit [facility] [address] [place] [phone] Ramírez Sin MD [address] [place] [address] Health Maintenance Due Date Last Done Comments Pneumococcal Immunization (50+ years) (1 of 2 - PCV) 1980 Cologuard 2006 Immunochemical Fecal Occult Blood 2006 Zoster Immunization (1 of 2) 2011 Colonoscopy 06/19/2020 06/19/2010 Colorectal Cancer Screening 06/19/2020 Mammogram 03/18/2021 03/18/2020 Respiratory Syncytial Virus (RSV) Immunization (Adult) (1 - Risk 60-74 years 1-dose series) 2021 Influenza Immunization (#1) 2025 04/20/2011 SARS-COV-2 Immunization (2 - season) 2025 04/09/2021 DTaP/Tdap/Td Immunization Discontinued 06/05/2016 TdaP Immunization Completed 06/05/2016 Hepatitis C Virus (HCV) Screening Completed 10/13/2022, 06/08/2019 Lung Cancer Screening Discontinued 10/23/2024 , 10/23/2024, 03/03/2023, Additional history exists Hepatitis B Immunization Aged [...] this topic Medical Devices Implanted Type Area Title I Assistant Device Identifier Shelf Expiration Date Model / Serial / Lot L Knee Procedures Procedure Name Priority Date/Time Associated Diagnosis Comments URINALYSIS REFLEX IF INDICATED BY ABNORMAL RESULTS STAT 03/22/2025 6:10 PM CDT CULTURE, URINE STAT 03/22/2025 6:[address] HEAD OR BRAIN WO CONTRAST Stat with Interpretation 03/16/2025 4:38 AM CDT CBC WITH AUTO DIFFERENTIAL STAT 03/16/2025 1:07 AM CDT N-TERMINAL- PRO B TYPE NATRIURETIC PEPTIDE STAT 03/16/2025 1:07 AM CDT TROPONIN I, HIGH SENSITIVITY (HSTRP) STAT 03/16/2025 1:07 AM CDT MAGNESIUM (MG) STAT 03/16/2025 1:07 AM CDT COMPLETE BLOOD COUNT (CBC) WITH DIFF STAT 03/16/2025 1:07 AM CDT CMP (COMPREHENSIVE METABOLIC PANEL) STAT 03/16/2025 1:07 AM CDT EKG 12 LEAD STAT 03/16/2025 12:58 AM CDT EKG SCAN 03/16/2025 12:00 AM CDT RHYTHM STRIP 03/11/2025 12:00 AM CDT RHYTHM STRIP 03/11/2025 12:[address] ABDOMEN PELVIS W/O CONTRAST Stat with Interpretation 03/10/2025 12:26 PM CDT US RIGHT DUPLEX UPPER EXTREMITY VEINS Routine 03/10/2025 7:22 AM CDT XR CHEST SINGLE VIEW PORTABLE Routine 03/10/2025 3:08 AM CDT BLOOD GASES, ARTERIAL W/ O2 SATURATION STAT 03/10/2025 2:10 AM CDT CBC WITH AUTO DIFFERENTIAL Routine 03/10/2025 2:05 AM CDT D-DIMER STAT 03/10/2025 2:05 AM CDT COMPLETE BLOOD COUNT (CBC) WITH DIFF Routine 03/10/2025 2:05 AM CDT BASIC METABOLIC PANEL W/ CALCIUM TOTAL Routine 03/10/2025 2:05 AM CDT RHYTHM STRIP 03/10/2025 12:00 AM CDT RHYTHM STRIP 03/10/2025 12:[address] ANGIO LEFT UPPER EXTREMITY W/WO CONTRAST/PP STAT 03/09/2025 12:05 PM CDT EKG 12 LEAD Routine 03/09/2025 11:38 AM CDT CBC WITH AUTO DIFFERENTIAL Routine 03/09/2025 5:00 AM CDT COMPLETE BLOOD COUNT (CBC) WITH DIFF Routine 03/09/2025 5:00 AM CDT BASIC METABOLIC PANEL W/ CALCIUM TOTAL Routine 03/09/2025 5:00 AM CDT RHYTHM STRIP 03/09/2025 12:00 AM CDT RHYTHM STRIP 03/09/2025 12:00 AM CDT EKG SCAN 03/09/2025 12:00 AM CDT RHYTHM STRIP 03/09/2025 12:00 AM CDT URINE DRUG SCREEN STAT 03/08/2025 1:0 6 PM CDT URINALYSIS REFLEX IF INDICATED BY ABNORMAL RESULTS STAT 03/08/2025 1:06 PM CDT CBC WITH AUTO DIFFERENTIAL STAT 03/08/2025 9:58 AM CDT N-TERMINAL- PRO B TYPE NATRIURETIC PEPTIDE STAT 03/08/2025 9:58 AM CDT CREATINE KINASE (CK) TOTAL STAT 03/08/2025 9:58 AM CDT C-REACTIVE PROTEIN (CRP) QUANT STAT 03/08/2025 9:58 AM CDT TROPONIN I, HIGH SENSITIVITY (HSTRP) STAT 03/08/2025 9:58 AM CDT COMPLETE BLOOD COUNT (CBC) WITH DIFF STAT 03/08/2025 9:58 AM CDT BASIC METABOLIC PANEL W/ CALCIUM TOTAL STAT 03/08/2025 9:58 AM CDT LIPID PANEL STAT 03/08/2025 9:58 AM CDT RHYTHM STRIP 03/08/2025 12:00 AM CDT RHYTHM STRIP 03/08/2025 12:00 AM CDT RHYTHM STRIP 03/08/2025 12:00 AM CDT MDI TREATMENT RT-INITIAL Routine 03/07/2025 9:59 PM CDT XR CHEST SINGLE VIEW PORTABLE STAT 03/07/2025 5:50 PM CDT XR SHOULDER COMPLETE RIGHT STAT 03/07/2025 5:[address] ANGIO HEAD AND NECK WWO CONTRAST W PP Stat with Interpretation 03/07/2025 4:09 PM CDT EKG 12 LEAD STAT 03/07/2025 4:08 PM CDT GOLD TOP TUBE STAT 03/07/2025 3:56 PM CDT CBC WITH AUTO DIFFERENTIAL STAT 03/07/2025 3:56 PM CDT TROPONIN I, HIGH SENSITIVITY (HSTRP) STAT 03/07/2025 3:56 PM CDT PHOSPHORUS (PO4) STAT 03/07/2025 3:56 PM CDT MAGNESIUM (MG) STAT 03/07/2025 3:56 PM CDT HEMOGLOBIN A1C W/ ESTIMATED GLUCOSE STAT 03/07/2025 3:56 PM CDT THYROID STIMULATING HORMONE (TSH) STAT 03/07/2025 3:56 PM CDT HEPATIC FUNCTION PANEL STAT 03/07/2025 3:56 PM CDT EXTRA TUBES STAT 03/07/2025 3:56 PM CDT PROTIME (PT) (PROTHROMBIN TIME) STAT 03/07/2025 3:56 PM CDT APTT (PTT) STAT 03/07/2025 3:56 PM CDT BASIC METABOLIC PANEL W/ CALCIUM TOTAL STAT 03/07/2025 3:56 PM CDT COMPLETE BLOOD COUNT (CBC) WITH DIFF STAT 03/07/2025 3:[address] STROKE HEAD WO CONTRAST Stat with Interpretation 03/07/2025 3:50 PM CDT POCT GLUCOSE STAT 03/07/2025 3:42 PM CDT CRITICAL CARE Routine 03/07/2025 3:41 PM CDT RHYTHM STRIP 03/07/2025 12:00 AM CDT EKG SCAN 03/07/2025 12:00 AM CDT CBC WITH AUTO DIFFERENTIAL STAT 02/27/2025 7:49 PM CDT CMP (COMPREHENSIVE METABOLIC PANEL) STAT 02/27/2025 7:49 PM CDT COMPLETE BLOOD COUNT (CBC) WITH DIFF STAT 02/27/2025 7:49 PM CDT XR ABDOMEN KUB FLAT PLATE STAT 02/27/2025 7:[address] ANGIO CHEST W/WO ABDOMEN PELVIS W CONTRAST Stat with Interpretation 10/23/2024 3:24 AM CDT COLONOSCOPY Routine 06/19/2010 from Last 3 Months or Most Recently Relevant to Health Maintenance Results * (ABNORMAL) Urinalysis w/ Reflex (03/22/2025 6:10 PM CDT) Only the most recent of2 resultswithin the time period is included. SPECIFIC GRAVITY 1.025 1.003 - 1.030 03/22/2025 6:56 PM CDT [facility] URINE PH 5.0 5.0 - 9.0 03/22/2025 6:56 PM CDT [facility] WBC ESTERASE 25 /ul(A) Negative 03/22/2025 6:56 PM CDT [facility] NITRITE Negative Negative 03/22/2025 6:56 PM CDT [facility] PROTEIN, RANDOM URINE 100 mg/dL(A) Negative 03/22/2025 6:56 PM CDT [facility] URINE GLUCOSE, QUAL Negative Negative 03/22/2025 6:56 PM CDT [facility] URINE KETONES Negative Negative 03/22/2025 6:56 PM CDT [facility] UROBILINOGEN Normal Normal mg/dL 03/22/2025 6:56 PM CDT [facility] URINE BLOOD 250 /uL(A) Negative jacob/ul 03/22/2025 6:56 PM CDT [facility] URINALYSIS COLOR Yellow 03/22/2025 6:56 PM CDT [facility] URINALYSIS CLARITY Slightly Cloudy 03/22/2025 6:56 PM CDT [facility] WBC (Urine) 11-20(A) Negative, 0-5 /hpf 03/22/2025 6:56 PM CDT [facility] URINE RBC'S 51-150(A) Negative, 0-2 /hpf 03/22/2025 6:56 PM CDT [facility] EPITHELIAL CELLS Occasional /lpf 03/22/2025 6:56 PM CDT [facility] BACTERIA, URINE Moderate(A) Negative /hpf 03/22/2025 6:56 PM CDT [facility] URINE MUCOUS Many 03/22/2025 6:56 PM CDT [facility] CRYSTALS Calcium oxalate 03/22/2025 6:56 PM CDT [facility] CASTS 1-5/LPF Hyaline Casts(A) Negative, 0-2/lpf, 3-5/lpf, 6-10/lpf, 11-20/lpf, >20/lpf, Rare Hyaline, Few Hyaline, Moderate Hyaline, Many Hyaline, Rare Granular, Few Granular, Moderate Granular, Many Granular, Few WBC, Moderate WBC , Many WBC , Rare WBC, Rare RBC, Few RBC, Moder... /lpf 03/22/2025 6:56 PM CDT [facility] Urine URINE SPECIMEN / Unknown Non-Phlebotomy Collection / Unknown 03/22/2025 6:10 PM CDT 03/22/2025 6:20 PM CDT us Vinnie Paul MD URINE ORDERABLES Final Re sult [facility] [address] [place] [address] * Culture, Urine (03/22/2025 6:10 PM CDT) CULTURE RESULTS No growth final 03/24/2025 9:27 AM CDT [facility] Urine URINE SPECIMEN / Unknown Non-Phlebotomy Collection / Unknown 03/22/2025 6:10 PM CDT 03/22/2025 6:20 PM CDT us Vinnie Paul MD MICROBIOLOGY - GENERAL OR DERABLES Final Result Performing Organization Address City/[facility]/ZIP Co de Phone Number [facility] [address] [place] [address], [place] * CT HEAD OR BRAIN WO CONTRAST (03/16/2025 4:38 AM CDT) Anatomical Region Laterality Modality Head N/A Computed Tomogra phy 03/16/2025 5:02 AM CDT Impressions 03/16/2025 5:05 AM CDT IMPRESSION: No acute abnormality identified. Narrative 03/16/2025 5:05 AM CDT EXAM DESCRIPTION: CT HEAD OR BRAIN WO CONTRAST REASON FOR STUDY: elevated BP, headache x 2 days. pt was recently admitted to this facility for a TIA. Hx of HTN TECHNIQUE: Axial images acquired through the brain without intravenous contrast. Images stored on PACS. Automated exposure control was used as a dose optimization technique for this examination. COMPARISON: 03/07/2025 FINDINGS: BRAIN: No mass, hemorrhage, or recent infarct. Normal white matter. Volume within normal limits for age. VASCULAR: No dense vessel or obvious aneurysm. EXTRA-AXIAL SPACES: No mass or fluid collection. ORBITS/GLOBES: Unremarkable. SOFT TISSUES: Unremarkable. BONES/SINUSES: No fracture or lesion. Paranasal sinuses and other skullbase airspaces are clear. THIS IS AN ELECTRONICALLY VERIFIED FINAL REPORT 03/16/2025 5:02 AM - Electronically signed by Edin Palmer M.D. AR: INES Report ID: [id number] Reading Location: [id number] Procedure Note Edin Palmer MD - 03/16/2025 EXAM DESCRIPTION: CT HEAD OR BRAIN WO CONTRAST REASON FOR STUDY: elevated BP, headache x 2 days. pt was recently admitted to this facility for a TIA. Hx of HTN TECHNIQUE: Axial images acquired through the brain without intravenous contrast. Images stored on PACS. Automated exposure control was used as a dose optimization technique for this examination. COMPARISON: 03/07/2025 FINDINGS: BRAIN: No mass, hemorrhage, or recent infarct. Normal white matter. Volume within normal limits for age. VASCULAR: No dense vessel or obvious aneurysm. EXTRA-AXIAL SPACES: No mass or fluid collection. ORBITS/GLOBES: Unremarkable. SOFT TISSUES: Unremarkable. BONES/SINUSES: No fracture or lesion. Paranasal sinuses and other skullbase airspaces are clear. THIS IS AN ELECTRONICALLY VERIFIED FINAL REPORT 03/16/2025 5:02 AM - Electronically signed by Edin Palmer M.D. AR: INES Report ID: [id number] Reading Location: [id number] IMPRESSION: No acute abnormality identified. Jim Garrido MD IMG CT ORDERABLES Final R esult * NT-proBNP (03/16/2025 1:07 AM CDT) Only the most recent of2 resultswithin the time period is included. NT PROBNP 371.4 <450.0 pg/mL 03/16/2025 1:57 AM CDT [facility] Comment: AGE pg/mL INTERPRETATION All <300 Negative: HF (Heart Failure) unlikely 18 to <50 >=300.0 to <450.0 Indeterminate. Consider other causes of NT-proBNP elevation 50 to 75 >=300.0 to <900.0 Indeterminate. Consider other causes of NT-proBNP elevation >75 >=300.0 to <1800.0 Indeterminate. Consider other causes of NT-proBNP elevation 18 to <50 >=450.0 Positive: HF likely 50 to 75 >=900.0 Positive: HF likely >75 >=1800.0 Positive: HF likely Total protein levels at or above 12.6 mg/dl may falsely decrease NT-proBNP values. Blood Venipuncture / Unknown 03/16/2025 1:07 AM CDT 03/16/2025 1:32 AM CDT Jim Garrido MD CHEMISTRY ORDERABLES Shelby l Result [facility] [address] [place] [address] * TROPONIN I, HIGH SENSITIVITY (HSTRP) (03/16/2025 1:07 AM CDT) Only the most recent of3 resultswithin the time period is included. TROPONIN I, HIGH SENSITIVITY- LINO 3 <=14 ng/L 03/16/2025 1:57 AM CDT [facility] Comment: High-sensitivity troponin I results are reported in ng/L making the result appear to be 1,000 times higher than the contemporary troponin I value which is reported in ng/ml. Results from [facility]. Blood Venipuncture / Unknown 03/16/2025 1:07 AM CDT 03/16/2025 1:32 AM CDT us Jim Garrido MD CHEMISTRY ORDERABLES Shelby l Result [facility] [address] [place] [address] * (ABNORMAL) CBC with Auto Differential (03/16/2025 1:07 AM CDT) Only the most recent of6 resultswithin the time period is included. WBC 9.07 4.00 - 12.00 10(3)/mcL 03/16/2025 1:35 AM CDT [facility] RBC 5.29 3.80 - 5.30 10(6)/mcL 03/16/2025 1:35 AM CDT [facility] HEMOGLOBIN (HGB) 14.2 12.0 - 15.8 g/dL 03/16/2025 1:35 AM CDT [facility] HEMATOCRIT (HCT) 45.4 36.0 - 47.0 % 03/16/2025 1:35 AM CDT [facility] MCV 85.8 82.0 - 96.0 fL 03/16/2025 1:35 AM CDT [facility] MCH 26.8 26.0 - 34.0 pg 03/16/2025 1:35 AM CDT [facility] MCHC 31.3 31.0 - 36.0 g/dL 03/16/2025 1:35 AM CDT [facility] PLATELET COUNT 347 140 - 440 10(3)/mcL 03/16/2025 1:35 AM CDT [facility] RDW 17.8(H) 11.8 - 15.5 % 03/16/2025 1:35 AM CDT [facility] MPV 9.6(L) 9.7 - 12.4 fL 03/16/2025 1:35 AM CDT [facility] NEUTROPHILS 67.2 47.0 - 73.0 % 03/16/2025 1:35 AM CDT [facility] LYMPHOCYTES 19.1 18.0 - 42.0 % 03/16/2025 1:35 AM CDT [facility] MONOCYTES 9.9 4.0 - 12.0 % 03/16/2025 1:35 AM CDT [facility] EOSINOPHILS 2.6 0.0 - 5.0 % 03/16/2025 1:35 AM CDT [facility] BASOPHILS 0.4 0.0 - 1.0 % 03/16/2025 1:35 AM CDT [facility] IMMATURE GRANULOCYTE 0.8(H) 0.0 - 0.4 % 03/16/2025 1:35 AM CDT [facility] Comment:Immature Granulocyte s includes Metamyelocytes, Myelocytes, and Promyelocytes. ABSOLUTE NEUTROPHILS 6.09 1.60 - 7.70 10(3)/mcL 03/16/2025 1:35 AM CDT [facility] ABSOLUTE LYMPHOCYTES 1.73 1.30 - 3.20 10(3)/mcL 03/16/2025 1:35 AM CDT [facility] ABSOLUTE MONOCYTES 0.90 0.20 - 1.00 10(3)/mcL 03/16/2025 1:35 AM CDT [facility] ABSOLUTE EOSINOPHIL 0.24 0.00 - 0.40 10(3)/mcL 03/16/2025 1:35 AM CDT [facility] ABSOLUTE BASOPHILS 0.04 0.00 - 0.10 10(3)/mcL 03/16/2025 1:35 AM CDT [facility] ABSOLUTE IMMATURE GRANULOCYTE 0.07(H) 0.00 - 0.03 10 (3) mcL. 03/16/2025 1:35 AM CDT [facility] NRBC PER 100 WBC 0 03/16/20 1:35 AM CDT [facility] Blood Venipuncture / Unknown 03/16/2025 1:07 AM CDT 03/16/2025 1:32 AM CDT Jim Garrido MD HEMATOLOGY ORDERABLES Fin al Result [facility] [address] [place] [address] * MAGNESIUM (MG) (03/16/2025 1:07 AM CDT) Only the most recent of2 resultswithin the time period is included. MAGNESIUM 1.8 1.6 - 2.6 mg/dL 03/16/2025 1:54 AM CDT [facility] Blood Venipuncture / Unknown 03/16/2025 1:07 AM CDT 03/16/2025 1:32 AM CDT us Jim Garrido MD CHEMISTRY ORDERABLES Shelby luu Result Performing Organization Address [facility] Co de Phone Number [facility] [address] [place] [address] * (ABNORMAL) CMP (Comprehensive Metabolic Panel) (03/16/2025 1:07 AM CDT) Only the most recent of2 resultswithin the time period is included. SODIUM 140 136 - 145 mmol/L 03/16/2025 1:54 AM CDT [facility] POTASSIUM 3.3(L) 3.5 - 5.1 mmol/L 03/16/2025 1:54 AM CDT [facility] CHLORIDE 98 98 - 107 mmol/L 03/16/2025 1:54 AM CDT [facility] CO2, VENOUS 31(H) 22 - 30 mmol/L 03/16/2025 1:54 AM CDT [facility] ANION GAP 14.3 <18.0 mmol/L 03/16/2025 1:54 AM CDT [facility] GLUCOSE 89 70 - 99 mg/dL 03/16/2025 1:54 AM CDT [facility] BUN 24(H) 10 - 20 mg/dL 03/16/2025 1:54 AM CDT [facility] CREATININE, BLOOD 1.38(H) 0.60 - 1.00 mg/dL 03/16/2025 1:54 AM [facility] BUN/CREATININE RATIO 17 12 - 20 ratio 03/16/2025 1:54 AM [facility] TOTAL PROTEIN 7.4 6.0 - 8.0 g/dL 03/16/2025 1:54 AM [facility] ALBUMIN 4.1 3.5 - 5.0 g/dL 03/16/2025 1:54 AM [facility] A/G RATIO 1.2 1.0 - 2.2 03/16/2025 1:54 AM [facility] CALCIUM 9.8 8.7 - 10.5 mg/dL 03/16/2025 1:54 AM [facility] T BILI 0.2 0.2 - 1.2 mg/dL 03/16/2025 1:54 AM [facility] SGOT (AST) 20 <43 U/L 03/16/2025 1:54 AM [facility] SGPT (ALT) 9 <56 U/L 03/16/2025 1:54 AM [facility] ALKALINE PHOSPHATASE 145 40 - 150 U/L 03/16/2025 1:54 AM [facility] GFR, ESTIMATED 43(L) >=60 03/16/2025 1:54 AM [facility] Comment: Creatinine Clearance is the preferred criteria for selecting drug dose adjustments in renally impaired patients. The GFR is provided as additional pertinent clinical information. GFR is reported in mL/min/1.73 sq m. Calculation based on the Chronic Kidney Disease Epidemiology Collaboration (CKD- EPI) equation refit without adjustment for race. GFR, EST. 47(L) >=60 025 1:54 AM [facility] GFR, EST. NONAFRICAN 39(L) >=60 03/16/2025 1:54 AM [facility] Blood Venipuncture / Unknown 03/16/2025 1:07 AM CDT 03/16/2025 1:32 AM CDT Jim Garrido MD CHEMISTRY ORDERABLES Shelby l Result Performing Organization Address City/[facility]/ZIP Co de Phone Number [facility] [address] [place] [address] * EKG 12 LEAD (03/16/2025 12:58 AM CDT) Only the most recent of3 resultswithin the time period is included. Ventricular Rate 98 BPM EXTERNAL EKG Atrial Rate 98 BPM EXTERNAL EKG P-R Interval 140 ms EXTERNAL EKG QRS Duration 80 ms EXTERNAL EKG Q-T Duration 360 ms EXTERNAL EKG QTC CALCULATION 459 ms EXTERNAL EKG P [place] 56 degrees EXTERNAL EKG R [place] 31 degrees EXTERNAL EKG T [place] 44 degrees EXTERNAL EKG 03/16/2025 12:5 8 AM CDT Impressions EXTERNAL EKG - 03/17/2025 4:33 PM CDT Normal sinus rhythm Possible Inferior infarct (cited on or before 09-MAR-2025) Abnormal ECG When compared with ECG of 09-MAR-2025 11:38, No significant change was found Confirmed by Laly Barajas ([id number]) on 03/17/2025 4:33:41 PM Narrative Procedure Note Laly Barajas MD PhD - 03/17/2025 IMPRESSION: Normal sinus rhythm Possible Inferior infarct (cited on or before 09-MAR-2025) Abnormal ECG When compared with ECG of 09-MAR-2025 11:38, No significant change was found Confirmed by Laly Barajas ([id number]) on 03/17/2025 4:33:41 PM Jim Garrido MD IMG ECG ORDERABLES Final Result Performing Organization Address [facility]/ZIP Co de Phone Number EXTERNAL EKG * EKG SCAN (03/16/2025 12:00 AM CDT) Only the most recent of3 resultswithin the time period is included. 03/16/2025 us Provider Scan IMG ECG ORDERABLES Final Result RESULTING AGENCY * RHYTHM STRIP (03/11/2025 12:00 AM CDT) Only the most recent of11 resultswithin the time period is included. 03/11/2025 us Provider Scan IMG ECG ORDERABLES Final Result Performing Organization Address City/State/[facility] Co de Phone Number RESULTING AGENCY * CT ABDOMEN PELVIS W/O CONTRAST (03/10/2025 12:26 PM CDT) Anatomical Region Laterality Modality Abdomen N/A Computed Tomogra phy 03/10/2025 5:25 PM CDT Impressions 03/10/2025 5:27 PM CDT IMPRESSION: No acute finding. Narrative 03/10/2025 5:27 PM CDT EXAM DESCRIPTION: CT ABDOMEN PELVIS W/O CONTRAST REASON FOR STUDY: Patient admitted for aphasia with generalized weakness, nausea and vomiting today per ordering provider. Hx of CKD, HTN, and COPD. TECHNIQUE: CT scan of the abdomen and pelvis performed without intravenous and without oral contrast using helical scanning technique. Reconstructed coronal and sagittal MPR images reviewed. All images stored on PACS. Automated exposure control was used as a dose optimization technique for this examination. COMPARISON: 09/19/2020 FINDINGS: The sensitivity for detection of visceral lesions is diminished without the use of intravenous contrast. LOWER CHEST: No significant pulmonary abnormalities. No effusion. Atelectatic changes at the lung bases. Small hiatal hernia. LIVER: Normal size. No identified cystic or solid masses. GALLBLADDER: Surgically absent. BILE DUCTS: No intrahepatic or extrahepatic ductal dilatation. SPLEEN: Normal size. No focal lesions. PANCREAS: No identified cystic or solid masses. No significant calcifications. No adjacent inflammation or peripancreatic fluid collections. Pancreatic duct not dilated. ADRENALS: Normal. KIDNEYS/URINARY TRACT: No identified significant cystic or solid masses. There is some residual excreted contrast from a prior contrast administration in the renal collecting systems bilaterally as well as the urinary bladder. No hydronephrosis or hydroureter. Urinary bladder is unremarkable. GI: No dilated bowel loops. No obvious wall thickening. Appendix is not visualized. No significant diverticular disease. Large amount of fecal matter in the colon. PERITONEUM: No ascites or free air. RETROPERITONEUM: No mass or adenopathy. REPRODUCTIVE: No significant abnormality. VASCULATURE: No abdominal aortic aneurysm. MUSCULOSKELETAL: No significant abnormality. OTHER: No other abnormality. THIS IS AN ELECTRONICALLY VERIFIED FINAL REPORT 03/10/2025 5:25 PM - Electronically signed by Clay Byers M.D. KT: MARIA LUZ Report ID: [id number] Reading Location: [id number] Procedure Note Clay Byers MD - 03/10/2025 EXAM DESCRIPTION: CT ABDOMEN PELVIS W/O CONTRAST REASON FOR STUDY: Patient admitted for aphasia with generalized weakness, nausea and vomiting today per ordering provider. Hx of CKD, HTN, and COPD. TECHNIQUE: CT scan of the abdomen and pelvis performed without intravenous and without oral contrast using helical scanning technique. Reconstructed coronal and sagittal MPR images reviewed. All images stored on PACS. Automated exposure control was used as a dose optimization technique for this examination. COMPARISON: 09/19/2020 FINDINGS: The sensitivity for detection of visceral lesions is diminished without the use of intravenous contrast. LOWER CHEST: No significant pulmonary abnormalities. No effusion. Atelectatic changes at the lung bases. Small hiatal hernia. LIVER: Normal size. No identified cystic or solid masses. GALLBLADDER: Surgically absent. BILE DUCTS: No intrahepatic or extrahepatic ductal dilatation. SPLEEN: Normal size. No focal lesions. PANCREAS: No identified cystic or solid masses. No significant calcifications. No adjacent inflammation or peripancreatic fluid collections. Pancreatic duct not dilated. ADRENALS: Normal. KIDNEYS/URINARY TRACT: No identified significant cystic or solid masses. There is some residual excreted contrast from a prior contrast administration in the renal collecting systems bilaterally as well as the urinary bladder. No hydronephrosis or hydroureter. Urinary bladder is unremarkable. GI: No dilated bowel loops. No obvious wall thickening. Appendix is not visualized. No significant diverticular disease. Large amount of fecal matter in the colon. PERITONEUM: No ascites or free air. RETROPERITONEUM: No mass or adenopathy. REPRODUCTIVE: No significant abnormality. VASCULATURE: No abdominal aortic aneurysm. MUSCULOSKELETAL: No significant abnormality. OTHER: No other abnormality. THIS IS AN ELECTRONICALLY VERIFIED FINAL REPORT 03/10/2025 5:25 PM - Electronically signed by Clay Byers M.D. KT: MARIA LUZ Report ID: [id number] Reading Location: [id number] IMPRESSION: No acute finding. us Dar Acevedo MD IMG CT ORDERABLES Final Resul t * US RIGHT DUPLEX UPPER EXTREMITY VEINS (03/10/2025 7:22 AM CDT) Anatomical Region Laterality Modality vascular Right Ultrasound 03/10/2025 12:0 5 PM CDT Impressions 03/10/2025 12:08 PM CDT IMPRESSION: No sonographic evidence of DVT in the upper extremity. Narrative 03/10/2025 12:08 PM CDT EXAM DESCRIPTION: US RIGHT DUPLEX UPPER EXTREMITY VEINS HISTORY: right arm swelling / pain r/o dvt TECHNIQUE: Duplex scan was performed using B-mode, spectral Doppler and color-flow Doppler imaging of the right upper extremity was performed utilizing real-time ultrasonography. COMPARISON: None. FINDINGS: The deep venous system from the jugular vein through the antecubital fossa demonstrates normal color Doppler flow and wave forms, normal compressibility where applicable, and normal augmentation. No abnormal fluid collections or masses are identified within the soft tissues. THIS IS AN ELECTRONICALLY VERIFIED FINAL REPORT 03/10/2025 12:05 PM - Electronically signed by Jose Flores M.D. CH: ZACHARY Report ID: [id number] Reading Location: [id number] Procedure Note Jose Flores Jr., MD - 03/10/2025 EXAM DESCRIPTION: US RIGHT DUPLEX UPPER EXTREMITY VEINS HISTORY: right arm swelling / pain r/o dvt TECHNIQUE: Duplex scan was performed using B-mode, spectral Doppler and color-flow Doppler imaging of the right upper extremity was performed utilizing real-time ultrasonography. COMPARISON: None. FINDINGS: The deep venous system from the jugular vein through the antecubital fossa demonstrates normal color Doppler flow and wave forms, normal compressibility where applicable, and normal augmentation. No abnormal fluid collections or masses are identified within the soft tissues. THIS IS AN ELECTRONICALLY VERIFIED FINAL REPORT 03/10/2025 12:05 PM - Electronically signed by Jose Flores M.D. CH: ZACHARY Report ID: [id number] Reading Location: [id number] IMPRESSION: No sonographic evidence of DVT in the upper extremity. us Rossy Tay APRN, CNP IMG US ORDERABLES Final R esult * XR CHEST SINGLE VIEW PORTABLE (03/10/2025 3:08 AM CDT) Only the most recent of2 resultswithin the time period is included. Anatomical Region Laterality Modality Chest N/A Digital Radiogra phy 03/10/2025 6:02 AM CDT Impressions 03/10/2025 6:05 AM CDT IMPRESSION: Hypoventilatory chest. Left lower lobe atelectasis versus pneumonia. Narrative 03/10/2025 6:05 AM CDT EXAM DESCRIPTION: XR CHEST SINGLE VIEW PORTABLE REASON FOR STUDY: sob - desaturation while off bipap.Admitted 03/07 for TIA. HX: Former smoker, Chronic respiratory failure with hypoxia, COPD, HTN, TIA TECHNIQUE: Single radiographic view of the chest. COMPARISON: Chest x-ray of March 07, 2025. FINDINGS: LUNGS/PLEURA: Lungs are hypoventilatory with crowding of the vascular markings and loss of the left hemidiaphragm silhouette, new from previous. HEART/MEDIASTINUM: Cardiac silhouette is within normal limits for AP hypoventilatory view. Remaining mediastinal silhouettes are unremarkable. HARDWARE/LINES/TUBES: EKG leads overlie the film. BONES: No acute findings. THIS IS AN ELECTRONICALLY VERIFIED FINAL REPORT 03/10/2025 6:02 AM - Electronically signed by Gaby Guerra M.D. SN: Report ID: [id number] Reading Location: [id number] Procedure Note Gaby Guerra MD - 03/10/2025 EXAM DESCRIPTION: XR CHEST SINGLE VIEW PORTABLE REASON FOR STUDY: sob - desaturation while off bipap.Admitted 03/07 for TIA. HX: Former smoker, Chronic respiratory failure with hypoxia, COPD, HTN, TIA TECHNIQUE: Single radiographic view of the chest. COMPARISON: Chest x-ray of March 07, 2025. FINDINGS: LUNGS/PLEURA: Lungs are hypoventilatory with crowding of the vascular markings and loss of the left hemidiaphragm silhouette, new from previous. HEART/MEDIASTINUM: Cardiac silhouette is within normal limits for AP hypoventilatory view. Remaining mediastinal silhouettes are unremarkable. HARDWARE/LINES/TUBES: EKG leads overlie the film. BONES: No acute findings. THIS IS AN ELECTRONICALLY VERIFIED FINAL REPORT 03/10/2025 6:02 AM - Electronically signed by Gaby Guerra M.D. SN: Report ID: [id number] Reading Location: [id number] IMPRESSION: Hypoventilatory chest. Left lower lobe atelectasis versus pneumonia. Rossy Tay APRN, KAYRN IMG DIAGNOSTIC ORDERABLES Final Result * (ABNORMAL) Blood Gases, Arterial w/ O2 Saturation (03/10/2025 2:10 AM CDT) O2 STATUS BiPAP: 12/4, 16f, 40% FiO2 03/10/2025 2:14 AM CDT [facility] PH ARTERIAL 7.34(L) 7.35 - 7.45 03/10/2025 2:14 AM CDT [facility] PC02 (ARTERIAL) 56(H) 35 - 45 mmHg 03/10/2025 2:14 AM CDT [facility] PO2 (ARTERIAL) 96 75 - 100 mmHg 03/10/2025 2:14 AM CDT [facility] O2 SAT ART, MEASURED 98 94 - 100 % 03/10/2025 2:14 AM CDT [facility] BASE ARTERIAL 4.2(H) -2.0 - 2.0 mmol/L 03/10/2025 2:14 AM CDT [facility] BICARBONATE 30.6(H) 22.0 - 26.0 mmol/L 03/10/2025 2:14 AM CDT [facility] LULU'S TEST RESULTS Positive - Right Radial 03/10/2025 2:14 AM CDT [facility] CARBOXYHEMOGLOBIN 0.9 0.0 - 5.0 % 03/10/2025 2:14 AM CDT [facility] METHEMOGLOBIN 0.4 0.0 - 1.5 % 03/10/2025 2:14 AM CDT [facility] ART Blood Gas Arterial Punctur e / Unknown 03/10/2025 2:10 AM CDT 03/10/2025 2:10 AM CDT us Rossy Tay APRN, CNP CHEMISTRY ORDERABLES Shelby l Result [facility] [address] [place] [address] * (ABNORMAL) D-Dimer (03/10/2025 2:05 AM CDT) D DIMER 0.98(H) <0.50 mcg/mL FEU 03/10/2025 2:23 AM CDT [facility] Blood Venipuncture / Unknown 03/10/2025 2:05 AM CDT 03/10/2025 2:05 AM CDT Narrative [facility] - 03/10/2025 2:23 AM CDT The FDA has approved this method to exclude the diagnosis of DVT and/or PE at the cutoff value of <0.50 mcg/mL FEU. us Rossy Tay APRN, KARYN HEMATOLOGY ORDERABLES Fin al Result [facility] [address] [place] [address] * (ABNORMAL) BMP with Ca, Total (03/10/2025 2:05 AM CDT) Only the most recent of4 resultswithin the time period is included. SODIUM 135(L) 136 - 145 mmol/L 03/10/2025 2:25 AM CDT [facility] POTASSIUM 4.4 3.5 - 5.1 mmol/L 03/10/2025 2:25 AM CDT [facility] CHLORIDE 102 98 - 107 mmol/L 03/10/2025 2:25 AM CDT [facility] CO2, VENOUS 24 22 - 30 mmol/L 03/10/2025 2:25 AM CDT [facility] ANION GAP 13.4 <18.0 mmol/L 03/10/2025 2:25 AM CDT [facility] GLUCOSE 102(H) 70 - 99 mg/dL 03/10/2025 2:25 AM CDT [facility] BUN 13 10 - 20 mg/dL 03/10/2025 2:25 AM CDT [facility] CREATININE, BLOOD 0.98 0.60 - 1.00 mg/dL 03/10/2025 2:25 AM CDT [facility] BUN/CREATININE RATIO 13 12 - 20 ratio 03/10/2025 2:25 AM CDT [facility] CALCIUM 8.5(L) 8.7 - 10.5 mg/dL 03/10/2025 2:25 AM CDT [facility] GFR, ESTIMATED >60 >=60 03/10/2025 2:25 AM CDT [facility] Comment: Creatinine Clearance is the preferred criteria for selecting drug dose adjustments in renally impaired patients. The GFR is provided as additional pertinent clinical information. GFR is reported in mL/min/1.73 sq m. Calculation based on the Chronic Kidney Disease Epidemiology Collaboration (CKD- EPI) equation refit without adjustment for race. GFR, EST. >60 >=60 025 2:25 AM CDT [facility] GFR, EST. NONAFRICAN 57(L) >=60 03/10/2025 2:25 AM CDT [facility] Blood Venipuncture / Unknown 03/10/2025 2:05 AM CDT 03/10/2025 2:05 AM CDT us Michelle Cast APRN, CNP CHEMISTRY ORDERABLES Final Result [facility] [place] [address] * CT ANGIO LEFT UPPER EXTREMITY W/WO CONTRAST/PP (03/09/2025 12:05 PM CDT) Anatomical Region Laterality Modality vascular Left Computed Tomogra phy 03/09/2025 1:39 PM CDT Addenda Addendum by Ramírez Esposito MD on 04/03/2025 5:21 AM CDT ADDENDUM REPORT: ADDENDUM: This addendum report supersedes the original report dated 03/09/2025 MIP images rendered on scanning unit and reviewed at time of interpretation. END OF ADDENDUM REPORT EXAM DESCRIPTION: CT ANGIO LEFT UPPER EXTREMITY W/WO CONTRAST/PP REASON FOR STUDY: Left hand cold today. Left shoulder pain since fall 03/07/25. Normal xray. Hx Fibromyalgia HTN, TIA. TECHNIQUE: Multidetector CT scan of the left arm was performed after intravenous contrast. Coronal and sagittal images were reconstructed. Dose modulation adjustment of the mA and/or kV has been performed per [facility] protocols according to patient size and indication CONTRAST TYPE/DOSE: 100mL of IOPAMIDOL 76 % IV SOLN injected via Intravenous COMPARISON: 01/13/2023 plain radiographs FINDINGS: Bones: No fracture. No dislocation. Soft Tissues: No soft tissue swelling or foreign body. No fluid collection. The left subclavian artery is patent without stenosis. The left vertebral artery originates normally and is patent along its length. The left axillary artery is patent and unremarkable. For left brachial artery is patent with normal caliber and unremarkable. The left brachial trifurcations normally with 3 patent runoff vessels to the wrist. Palmar arch is normally opacified. No abrupt occlusions, focal stenosis, wall thickening or surrounding induration of the vascular structures. Adjacent venous structures have normal caliber. No extrinsic compressing lesions or surrounding inflammatory changes. Aortic arch is patent without stenosis or aneurysmal segment. Great vessels originate normally. Central pulmonary vasculature demonstrate no emboli. Neck and mediastinal soft tissues unremarkable. Other: No other finding. IMPRESSION: No acute vascular abnormality of the left upper extremity. THIS IS AN ELECTRONICALLY VERIFIED FINAL REPORT 03/09/2025 1:39 PM - Electronically signed by Ramírez Esposito M.D. RB: SHILA Report ID: [id number] Reading Location: [id number] THIS IS AN ELECTRONICALLY VERIFIED FINAL REPORT 04/03/2025 5:18 AM Addendum Electronically signed by Ramírez Esposito M.D. RB: SHILA Report ID: [id number] Reading Location: [id number] Impressions 03/09/2025 1:41 PM CDT IMPRESSION: No acute vascular abnormality of the left upper extremity. Narrative 03/09/2025 1:41 PM CDT EXAM DESCRIPTION: CT ANGIO LEFT UPPER EXTREMITY W/WO CONTRAST/PP REASON FOR STUDY: Left hand cold today. Left shoulder pain since fall 03/07/25. Normal xray. Hx Fibromyalgia HTN, TIA. TECHNIQUE: Multidetector CT scan of the left arm was performed after intravenous contrast. Coronal and sagittal images were reconstructed. Dose modulation adjustment of the mA and/or kV has been performed per [facility] protocols according to patient size and indication CONTRAST TYPE/DOSE: 100mL of IOPAMIDOL 76 % IV SOLN injected via Intravenous COMPARISON: 01/13/2023 plain radiographs FINDINGS: Bones: No fracture. No dislocation. Soft Tissues: No soft tissue swelling or foreign body. No fluid collection. The left subclavian artery is patent without stenosis. The left vertebral artery originates normally and is patent along its length. The left axillary artery is patent and unremarkable. For left brachial artery is patent with normal caliber and unremarkable. The left brachial trifurcations normally with 3 patent runoff vessels to the wrist. Palmar arch is normally opacified. No abrupt occlusions, focal stenosis, wall thickening or surrounding induration of the vascular structures. Adjacent venous structures have normal caliber. No extrinsic compressing lesions or surrounding inflammatory changes. Aortic arch is patent without stenosis or aneurysmal segment. Great vessels originate normally. Central pulmonary vasculature demonstrate no emboli. Neck and mediastinal soft tissues unremarkable. Other: No other finding. THIS IS AN ELECTRONICALLY VERIFIED FINAL REPORT 03/09/2025 1:39 PM - Electronically signed by Ramírez Esposito M.D. RB: SHILA Report ID: [id number] Reading Location: [id number] Procedure Note Ramírez Esposito MD - 03/09/2025 EXAM DESCRIPTION: CT ANGIO LEFT UPPER EXTREMITY W/WO CONTRAST/PP REASON FOR STUDY: Left hand cold today. Left shoulder pain since fall 03/07/25. Normal xray. Hx Fibromyalgia HTN, TIA. TECHNIQUE: Multidetector CT scan of the left arm was performed after intravenous contrast. Coronal and sagittal images were reconstructed. Dose modulation adjustment of the mA and/or kV has been performed per [facility] protocols according to patient size and indication CONTRAST TYPE/DOSE: 100mL of IOPAMIDOL 76 % IV SOLN injected via Intravenous COMPARISON: 01/13/2023 plain radiographs FINDINGS: Bones: No fracture. No dislocation. Soft Tissues: No soft tissue swelling or foreign body. No fluid collection. The left subclavian artery is patent without stenosis. The left vertebral artery originates normally and is patent along its length. The left axillary artery is patent and unremarkable. For left brachial artery is patent with normal caliber and unremarkable. The left brachial trifurcations normally with 3 patent runoff vessels to the wrist. Palmar arch is normally opacified. No abrupt occlusions, focal stenosis, wall thickening or surrounding induration of the vascular structures. Adjacent venous structures have normal caliber. No extrinsic compressing lesions or surrounding inflammatory changes. Aortic arch is patent without stenosis or aneurysmal segment. Great vessels originate normally. Central pulmonary vasculature demonstrate no emboli. Neck and mediastinal soft tissues unremarkable. Other: No other finding. THIS IS AN ELECTRONICALLY VERIFIED FINAL REPORT 03/09/2025 1:39 PM - Electronically signed by Ramírez Esposito M.D. RB: SHILA Report ID: [id number] Reading Location: [id number] IMPRESSION: No acute vascular abnormality of the left upper extremity. us Dar Acevedo MD IMG CT ORDERABLES Edited Resu lt - Final * (ABNORMAL) Urine Drug Screen (03/08/2025 1:06 PM CDT) UR AMPHETAMINE NON DETECTED NON DETECTED 03/08/2025 1:45 PM CDT [facility] Comment: FOR MEDICAL USE ONLY. CUTOFF CONCENTRATION FOR DETECTED RESULT: AMPHETAMINE: 500 NG/ML UR BENZODIAZEPINES NON DETECTED NON DETECTED 03/08/2025 1:45 PM CDT [facility] Comment: FOR MEDICAL USE ONLY. CUTOFF CONCENTRATION FOR DETECTED RESULT: BENZODIAZAPINE: 200 NG/ML UR COCAINE METABOLITE NON DETECTED NON DETECTED 03/08/2025 1:45 PM CDT [facility] Comment: FOR MEDICAL USE ONLY. CUTOFF CONCENTRATION FOR DETECTED RESULT: COCAINE: 150 NG/ML UR OPIATES DETECTED(A) NON DETECTED 03/08/2025 1:45 PM CDT [facility] Comment: FOR MEDICAL USE ONLY. CUTOFF CONCENTRATION FOR DETECTED RESULT: OPIATES: 300 NG/ML UR PHENCYCLIDINE NON DETECTED NON DETECTED 03/08/2025 1:45 PM CDT [facility] Comment: FOR MEDICAL USE ONLY. CUTOFF CONCENTRATION FOR DETECTED RESULT: PCP: 25 NG/ML UR CANNABINOID NON DETECTED NON DETECTED 03/08/2025 1:45 PM CDT [facility] Comment: FOR MEDICAL USE ONLY. CUTOFF CONCENTRATION FOR DETECTED RESULT: THC (MARIJUANA): 50 NG/ML UR BARBITURATE NON DETECTED NON DETECTED 03/08/2025 1:45 PM CDT [facility] Comment: FOR MEDICAL USE ONLY. CUTOFF CONCENTRATION FOR DETECTED RESULT: BARBITUATES: 200 NG/ML UR FENTANYL NON DETECTED NON DETECTED 03/08/2025 1:45 PM CDT [facility] Comment: FOR MEDICAL USE ONLY. CUTOFF CONCENTRATION FOR DETECTED RESULT: FENTANYL: 1.0 NG/ML Urine Non-Phlebotomy Collection / Unknown 03/08/2025 1:06 PM CDT 03/08/2025 1:08 PM CDT us Dar Acevedo MD URINE ORDERABLES Final Result [facility] [address] [place] [address] * (ABNORMAL) Lipid Panel (03/08/2025 9:58 AM CDT) CHOLESTEROL 178 <200 mg/dL 03/08/2025 10:18 AM CDT [facility] TRIGLYCERIDES 148 <150 mg/dL 03/08/2025 10:18 AM CDT [facility] HDL CHOLESTEROL 39(L) >40 mg/dL 10:18 AM CDT [facility] LDL 109 <130 mg/dL 03/08/2025 10:18 AM CDT [facility] VLDL 30 10 - 50 mg/dL 03/08/2025 10:18 AM CDT [facility] CHOL/HDL RATIO 4.6(H) 0.0 - 4.4 03/08/2025 10:18 AM CDT [facility] NON-HDL CHOLESTEROL 139(H) <130 mg/dL 03/08/2025 10:18 AM CDT [facility] Blood Venipuncture / Unknown 03/08/2025 9:58 AM CDT 03/08/2025 9:58 AM CDT Michelle M Carbon FIELD CROP II FARMWORKER, TOY ELECTRIC TRAIN REPAIRER CHEMISTRY ORDERABLES Final Result Performing Organization Address [facility] Co de Phone Number [facility] [address] [place] [address] * Creatine Kinase (CK) Total (03/08/2025 9:58 AM CDT) CK (CPK) 81 29 - 168 U/L 03/08/2025 12:00 PM CDT [facility] Blood Venipuncture / Unknown 03/08/2025 9:58 AM CDT 03/08/2025 9:58 AM CDT Dar Acevedo MD CHEMISTRY ORDERABLES Final Re sult Performing Organization Address [facility] Co de Phone Number [facility] [address] [place] [address] * (ABNORMAL) C-Reactive Protein (CRP) Quant (03/08/2025 9:58 AM CDT) C-REACTIVE PROTEIN 0.76(H) <0.50 mg/dL 03/08/2025 12:24 PM CDT [facility] Blood Venipuncture / Unknown 03/08/2025 9:58 AM CDT 03/08/2025 9:58 AM CDT Dar Acevedo MD CHEMISTRY ORDERABLES Final Re sult Performing Organization Address [facility] Co de Phone Number [facility] [address] [place] [address] * XR SHOULDER COMPLETE RIGHT (03/07/2025 5:50 PM CDT) Anatomical Region Laterality Modality UPPER EXTREMITY, shoulder Right Digita l Radiography 03/07/2025 6:01 PM CDT Impressions 03/07/2025 6:03 PM CDT IMPRESSION: No acute abnormality is seen. Narrative 03/07/2025 6:03 PM CDT EXAM DESCRIPTION: XR SHOULDER COMPLETE RIGHT REASON FOR STUDY: FALL today. Right shoulder pain. TECHNIQUE: Four views of the right shoulder. COMPARISON: None FINDINGS: The bones are osteopenic. No fracture or dislocation is seen. Surrounding soft tissues appear unremarkable. Mild chronic changes are suspected of the right lung. THIS IS AN ELECTRONICALLY VERIFIED FINAL REPORT 03/07/2025 6:01 PM - Electronically signed by Clay MORGAN: EDDIE Report ID: [id number] Reading Location: [id number] Procedure Note Clay Garnica MD - 03/07/2025 EXAM DESCRIPTION: XR SHOULDER COMPLETE RIGHT REASON FOR STUDY: FALL today. Right shoulder pain. TECHNIQUE: Four views of the right shoulder. COMPARISON: None FINDINGS: The bones are osteopenic. No fracture or dislocation is seen. Surrounding soft tissues appear unremarkable. Mild chronic changes are suspected of the right lung. THIS IS AN ELECTRONICALLY VERIFIED FINAL REPORT 03/07/2025 6:01 PM - Electronically signed by Clay MORGAN: EDDIE Report ID: [id number] Reading Location: [id number] IMPRESSION: No acute abnormality is seen. Celia Jay MD IMG DIAGNOSTIC ORDERABLE S Final Result * CT ANGIO HEAD AND NECK WWO CONTRAST W PP (03/07/2025 4:09 PM CDT) Anatomical Region Laterality Modality vascular N/A Computed Tomogra phy 03/07/2025 4:57 PM CDT Impressions 03/07/2025 4:59 PM CDT IMPRESSION: BRAIN: No acute intracranial findings. CAROTID CTA: No carotid or vertebral stenosis. INTRACRANIAL CTA: No evidence of large vessel occlusion or significant stenosis. Narrative 03/07/2025 4:59 PM CDT EXAM DESCRIPTION: CT ANGIO HEAD AND NECK WWO CONTRAST W PP REASON FOR STUDY: slurred/garbled speech upon waking at 1000 today. Pt states that she has also had a fall earlier today in which she hit her head TECHNIQUE: Axial images were first obtained through the brain without contrast. Post IV contrast scanning, thin section axial imaging from the great vessel origins through the brain. 3D MIP images rendered on scanning unit and reviewed at time of interpretation. Carotid stenosis measurements are based on NASCET criteria. Automated exposure control was used as a dose optimization technique for this examination. CONTRAST TYPE/DOSE: 100mL of IOPAMIDOL 76 % IV SOLN injected via Intravenous COMPARISON: Noncontrast head CT 03/07/2025. CT angiography from 01/22/2024. FINDINGS: BRAIN: Please also see noncontrast head CT from the same day. No postcontrast evidence for acute intracranial hemorrhage, mass effect, edema or recent infarct. If there is clinical concern for acute ischemia, an MRI can be performed. Mild periventricular white matter hypoattenuation is nonspecific but compatible with chronic microvascular ischemia in a patient of this age. Cerebral volume is normal. Ventricular size is normal. No suspicious enhancement. Minimal opacification of the inferior mastoid air cells. CAROTID AND VERTEBRAL ARTERIES: RIGHT CAROTIDS: No internal, external or common carotid stenosis. LEFT CAROTIDS: No internal, external or common carotid stenosis. RIGHT VERTEBRAL: Patent. No significant stenosis. No dissection. LEFT VERTEBRAL: Patent. No significant stenosis. No dissection. AORTIC ARCH: Normal three-vessel origin. Bilateral subclavian arteries are patent. No dissection. INCLUDED LUNGS: Linear opacities in the upper lungs are likely atelectasis or scarring. No definite pneumonic consolidation within the limitations of motion artifact. NECK SOFT TISSUE: No mass, adenopathy. OTHER: Multilevel facet and uncovertebral osteoarthritis is noted. . Multilevel degenerative disc disease, severe at C5-C6 and C6-C7. Reversal of the normal cervical lordosis with multilevel anterolisthesis, unchanged from 06/04/2024. No gross evidence of acute displaced fracture or aggressive bone lesion. Circumscribed C6 vertebral body hypoattenuating focus demonstrates no aggressive features and is unchanged. Patient is edentulous. INTRACRANIAL VESSELS: [place]: The anterior, middle, posterior cerebral arteries are all patent. No evidence of aneurysm or focal stenosis. POSTERIOR CIRCULATION: The distal vertebral arteries are patent as is the basilar artery. No aneurysm. BRAIN: No gross enhancing lesions as visualized. THIS IS AN ELECTRONICALLY VERIFIED FINAL REPORT 03/07/2025 4:57 PM - Electronically signed by Jimmie Leggett M.D. MZ: MZ Report ID: [id number] Reading Location: [place] [id number] Procedure Note Jimmie Leggett MD - 03/07/2025 EXAM DESCRIPTION: CT ANGIO HEAD AND NECK WWO CONTRAST W PP REASON FOR STUDY: slurred/garbled speech upon waking at 1000 today. Pt states that she has also had a fall earlier today in which she hit her head TECHNIQUE: Axial images were first obtained through the brain without contrast. Post IV contrast scanning, thin section axial imaging from the great vessel origins through the brain. 3D MIP images rendered on scanning unit and reviewed at time of interpretation. Carotid stenosis measurements are based on NASCET criteria. Automated exposure control was used as a dose optimization technique for this examination. CONTRAST TYPE/DOSE: 100mL of IOPAMIDOL 76 % IV SOLN injected via Intravenous COMPARISON: Noncontrast head CT 03/07/2025. CT angiography from 01/22/2024. FINDINGS: BRAIN: Please also see noncontrast head CT from the same day. No postcontrast evidence for acute intracranial hemorrhage, mass effect, edema or recent infarct. If there is clinical concern for acute ischemia, an MRI can be performed. Mild periventricular white matter hypoattenuation is nonspecific but compatible with chronic microvascular ischemia in a patient of this age. Cerebral volume is normal. Ventricular size is normal. No suspicious enhancement. Minimal opacification of the inferior mastoid air cells. CAROTID AND VERTEBRAL ARTERIES: RIGHT CAROTIDS: No internal, external or common carotid stenosis. LEFT CAROTIDS: No internal, external or common carotid stenosis. RIGHT VERTEBRAL: Patent. No significant stenosis. No dissection. LEFT VERTEBRAL: Patent. No significant stenosis. No dissection. AORTIC ARCH: Normal three-vessel origin. Bilateral subclavian arteries are patent. No dissection. INCLUDED LUNGS: Linear opacities in the upper lungs are likely atelectasis or scarring. No definite pneumonic consolidation within the limitations of motion artifact. NECK SOFT TISSUE: No mass, adenopathy. OTHER: Multilevel facet and uncovertebral osteoarthritis is noted. . Multilevel degenerative disc disease, severe at C5-C6 and C6-C7. Reversal of the normal cervical lordosis with multilevel anterolisthesis, unchanged from 06/04/2024. No gross evidence of acute displaced fracture or aggressive bone lesion. Circumscribed C6 vertebral body hypoattenuating focus demonstrates no aggressive features and is unchanged. Patient is edentulous. INTRACRANIAL VESSELS: [place]: The anterior, middle, posterior cerebral arteries are all patent. No evidence of aneurysm or focal stenosis. POSTERIOR CIRCULATION: The distal vertebral arteries are patent as is the basilar artery. No aneurysm. BRAIN: No gross enhancing lesions as visualized. THIS IS AN ELECTRONICALLY VERIFIED FINAL REPORT 03/07/2025 4:57 PM - Electronically signed by Jimmie Leggett M.D. MZ: MZ Report ID: [id number] Reading Location: [place] [address] IMPRESSION: BRAIN: No acute intracranial findings. CAROTID CTA: No carotid or vertebral stenosis. INTRACRANIAL CTA: No evidence of large vessel occlusion or significant stenosis. Celia Jay MD IMG CT ORDERABLES Final Result * Hemoglobin A1C w/ Estimated Glucose (03/07/2025 3:56 PM CDT) HGB-A1C 6.0 4.0 - 6.0 % 03/07/2025 7:12 PM CDT [facility] Est Average Glucose 125.5 mg/dL 03/07/2025 7:12 PM CDT [facility] Blood Venipuncture / Unknown 03/07/2025 3:56 PM CDT 03/07/2025 4:02 PM CDT Narrative [facility] - 03/07/2025 7:12 PM CDT HEMOGLOBIN A1C: DIABETIC PATIENTS: WELL-CONTROLLED: 6.2 - 7.0 INTERMEDIATE WELL-CONTROLLED: 7.0 - 9.0 POORLY-CONTROLLED: >9.0 Specimens containing greater than 5% of Hemoglobin F may result in lower than expected % HbA1C results. us Michelle Angela Cast APRN, KARYN CHEMISTRY ORDERABLES Final Result [facility] [address] [place] [address] * Gold Top Tube (03/07/2025 3:56 PM CDT) Blood No Phlebotomy Charged / Unknown 03/07/2025 3:56 PM CDT 03/07/2025 4:13 PM CDT Celia Jay MD CHEMISTRY ORDERABLES Fin al Result [facility] [address] [place] [address] * (ABNORMAL) Thyroid Stimulating Hormone (TSH) (03/07/2025 3:56 PM CDT) TSH 90.645(H) 0.300 - 5.000 mIU/L 03/07/2025 7:32 PM CDT [facility] Blood Venipuncture / Unknown 03/07/2025 3:56 PM CDT 03/07/2025 4:02 PM CDT Michelle M Segun AWAN CNP CHEMISTRY ORDERABLES Final Result Performing Organization Address City/[facility]/ZIP Co de Phone Number [facility] [address] [place] [address] * APTT (PTT) (03/07/2025 3:56 PM CDT) PTT 30 24 - 36 sec 03/07/2025 4:22 PM CDT [facility] Blood Venipuncture / Unknown 03/07/2025 3:56 PM CDT 03/07/2025 4:02 PM CDT Narrative [facility] - 03/07/2025 4:22 PM CDT Therapeutic range for unfractionated heparin at 0.3-0.7 U/mL is an aPTT value in the range of 71-100 seconds. Critical value for the PTT test is >= 122 seconds. Result [facility] Celia Jay MD HEMATOLOGY ORDERABLES Fi nal Result Performing Organization Address [facility] Co de Phone Number [facility] [address] [place] [address] * PT (PROTHROMBIN TIME) (03/07/2025 3:56 PM CDT) PROTIME-PATIENT 12.0 11.6 - 14.8 sec 03/07/2025 4:22 PM CDT [facility] INR 0.9 0.9 - 1.2 03/07/2025 4:22 PM CDT [facility] Comment: Therapeutic Ranges INR = 2.0-3.0: Venous thromb, atrial fib, pul embolism, tissue heart valve, ami. INR = 2.5-3.5: Mechanical heart valve Critical value for INR is >/= 4.5 Blood Venipuncture / Unknown 03/07/2025 3:56 PM CDT 03/07/2025 4:02 PM CDT Result [facility] Celia Jay MD HEMATOLOGY ORDERABLES Fi nal Result Performing Organization Address [facility] Co de Phone Number [facility] [address] [place] [address] * PHOSPHORUS (PO4) (03/07/2025 3:56 PM CDT) PHOSPHORUS 4.2 2.5 - 4.5 mg/dL 03/07/2025 7:13 PM CDT [facility] Blood Venipuncture / Unknown 03/07/2025 3:56 PM CDT 03/07/2025 4:02 PM CDT Result [facility] Michelle Cast FIELD CROP II FARMWORKER, TOY ELECTRIC TRAIN REPAIRER CHEMISTRY ORDERABLES Final Result Performing Organization Address City/[facility]/ZIP Co de Phone Number [facility] [address] [place] [address] * Hepatic Function Panel (03/07/2025 3:56 PM CDT) T BILI 0.2 0.2 - 1.2 mg/dL 03/07/2025 7:13 PM CDT [facility] BILIRUBIN,DIRECT 0.1 0.0 - 0.5 mg/dL 03/07/2025 7:13 PM CDT [facility] ALKALINE PHOSPHATASE 118 40 - 150 U/L 03/07/2025 7:13 PM CDT [facility] SGOT (AST) 26 <43 U/L 03/07/2025 7:13 PM CDT [facility] SGPT (ALT) 12 <56 U/L 03/07/2025 7:13 PM CDT [facility] TOTAL PROTEIN 6.8 6.0 - 8.0 g/dL 03/07/2025 7:13 PM CDT [facility] ALBUMIN 3.6 3.5 - 5.0 g/dL 03/07/2025 7:13 PM CDT [facility] Blood Venipuncture / Unknown 03/07/2025 3:56 PM CDT 03/07/2025 4:02 PM CDT us Michelle Cast APRN, KARYN CHEMISTRY ORDERABLES Final Result Performing Organization Address City/[facility]/ZIP Co de Phone Number [facility] [address] [place] [address] * CT STROKE HEAD WO CONTRAST (03/07/2025 3:50 PM CDT) Anatomical Region Laterality Modality Head N/A Computed Tomogra phy 03/07/2025 3:59 PM CDT Impressions 03/07/2025 4:02 PM CDT IMPRESSION: No acute intracranial findings. This negative result will be called to the patient's physician by [facility] staff at this time. Narrative 03/07/2025 4:02 PM CDT EXAM DESCRIPTION: CT STROKE HEAD WO CONTRAST REASON FOR STUDY: slurred/garbled speech upon waking at 1000 today TECHNIQUE: Axial images acquired through the brain without intravenous contrast. Images stored on PACS. Automated exposure control was used as a dose optimization technique for this examination. COMPARISON: 06/04/2024 FINDINGS: BRAIN: No hemorrhage, edema or mass effect. No recent infarct. Patchy hypodensity of the cerebral white matter suggests chronic small-vessel ischemic changes. Diffuse atrophy of the brain is noted. EXTRA-AXIAL SPACES: No fluid collections. No masses. CALVARIUM: No fracture. SINUSES/MASTOIDS: No fluid or mucosal thickening. ORBITS: No significant abnormality. OTHER: No other significant abnormality. THIS IS AN ELECTRONICALLY VERIFIED FINAL REPORT 03/07/2025 3:59 PM - Electronically signed by Clay Garnica M.D. KH: EDDIE Report ID: [id number] Reading Location: [id number] Procedure Note Clay Garnica MD - 03/07/2025 EXAM DESCRIPTION: CT STROKE HEAD WO CONTRAST REASON FOR STUDY: slurred/garbled speech upon waking at 1000 today TECHNIQUE: Axial images acquired through the brain without intravenous contrast. Images stored on PACS. Automated exposure control was used as a dose optimization technique for this examination. COMPARISON: 06/04/2024 FINDINGS: BRAIN: No hemorrhage, edema or mass effect. No recent infarct. Patchy hypodensity of the cerebral white matter suggests chronic small-vessel ischemic changes. Diffuse atrophy of the brain is noted. EXTRA-AXIAL SPACES: No fluid collections. No masses. CALVARIUM: No fracture. SINUSES/MASTOIDS: No fluid or mucosal thickening. ORBITS: No significant abnormality. OTHER: No other significant abnormality. THIS IS AN ELECTRONICALLY VERIFIED FINAL REPORT 03/07/2025 3:59 PM - Electronically signed by Clay Garnica M.D. KH: EDDIE Report ID: [id number] Reading Location: [id number] IMPRESSION: No acute intracranial findings. This negative result will be called to the patient's physician by [facility] staff at this time. us Celia Jay MD IMG CT ORDERABLES Final Result * POCT Glucose (03/07/2025 3:42 PM CDT) GLUCOSE,BEDSIDE POCT 81 70 - 99 mg/dL 03/07/2025 3:43 PM CDT [facility] Blood 03/07/2025 3:42 PM CDT 03/07/2025 3:43 PM CDT us None Provider POINT OF CARE TESTING Final Resu lt [facility] [address] [place] [address] * Critical Care (03/07/2025 3:41 PM CDT) Narrative Celia Jay MD - 03/07/2025 3:41 PM CDT Celia Jay MD 03/07/2025 6:12 PM Critical Care Performed by: Celia Jay MD Authorized by: Celia Jay MD Critical care provider statement: Critical care time (minutes): 45 Critical care was necessary to treat or prevent imminent or life-threatening deterioration of the following conditions: CADDIE SUPERVISOR failure or compromise Critical care was time spent personally by me on the following activities: Ordering and performing treatments and interventions, ordering and review of laboratory studies, ordering and review of radiographic studies, re-evaluation of patient's condition and review of old charts us Celia Jay MD PROCEDURE/MINOR SURGICAL ORDERABLES Final Result * XR ABDOMEN KUB FLAT PLATE (02/27/2025 7:28 PM CDT) Anatomical Region Laterality Modality Abdomen N/A Digital Radiogra phy 02/27/2025 7:52 PM CDT Impressions 02/27/2025 7:55 PM CDT IMPRESSION: Prominent stool is seen of the ascending colon tapering into the descending colon and extending distally to the rectum. No obstruction. Narrative 02/27/2025 7:55 PM CDT EXAM DESCRIPTION: XR ABDOMEN KUB FLAT PLATE REASON FOR STUDY: Constipation x three weeks with nausea and vomting. H/o hiatal hernia, fibromyalgia TECHNIQUE: Single radiographic view of the abdomen. COMPARISON: No prior FINDINGS: There is prominent stool seen of the ascending colon tapering into the descending colon and extending distally to the rectum. No obstruction. Cholecystectomy clips. Mild spondylosis lumbar spine with pelvic phleboliths noted. No definite nephrolithiasis by plain film. THIS IS AN ELECTRONICALLY VERIFIED FINAL REPORT 02/27/2025 7:52 PM - Electronically signed by Todd KAYE: MIKKI Report ID: [id number] Reading Location: [id number] Procedure Note Todd Zhao MD - 02/27/2025 EXAM DESCRIPTION: XR ABDOMEN KUB FLAT PLATE REASON FOR STUDY: Constipation x three weeks with nausea and vomting. H/o hiatal hernia, fibromyalgia TECHNIQUE: Single radiographic view of the abdomen. COMPARISON: No prior FINDINGS: There is prominent stool seen of the ascending colon tapering into the descending colon and extending distally to the rectum. No obstruction. Cholecystectomy clips. Mild spondylosis lumbar spine with pelvic phleboliths noted. No definite nephrolithiasis by plain film. THIS IS AN ELECTRONICALLY VERIFIED FINAL REPORT 02/27/2025 7:52 PM - Electronically signed by Todd KAYE: MIKKI Report ID: [id number] Reading Location: [id number] IMPRESSION: Prominent stool is seen of the ascending colon tapering into the descending colon and extending distally to the rectum. No obstruction. Mathew Bower [facility] IMG DIAGNOSTIC ORDER GHANSHYAM Final Result * CT ANGIO CHEST W/WO ABDOMEN PELVIS W CONTRAST (10/23/2024 3:24 AM CDT) Anatomical Region Laterality Modality Chest N/A Computed Tomogra phy 10/23/2024 4:2 1 AM CDT Impressions 10/23/2024 4:24 AM CDT [...] by Gaby Guerra M.D. SN: Report ID: [id number] Reading Location: [id number] Procedure Note Gaby Guerra MD - 10/23/2024 [...] by Gaby Guerra M.D. SN: Report ID: [id number] Reading Location: [place] [address] IMPRESSION: No CTA evidence of pulmonary embolism [...] IMG CT ORDERABLES Final R esult * [facility] COLONOSCOPY (06/19/2010) Reece Ashton MD PROCEDURE/MINOR SURGICAL ORDER GHANSHYAM Final Result from Last 3 Months or Most Recently Relevant to Health Maintenance Insurance DR [address] [place] [id number] MEDICAID [facility] [address] [place] [address] Advance Directives * Full Code (Latest Code Status on File) Date Activated Date Inactivated Comments 03/07/2025 7:00 PM CPR-Full Treatm ent: FULL ARREST: Attempt Resuscitation/CPR wit intubation and mechanical ventilation. PRE-ARREST: Use entire range of life support measures to stabilize the patient. * Full Code Date Activated Date Inactivated Comments 10/24/2024 6:14 AM 03/07/2025 7:00 PM CPR-Full Ema tment: FULL ARREST: Attempt Resuscitation/CPR wit intubation and [...] Comments 03/21/2024 9:21 AM 06/06/2024 10:05 AM Care Teams Pipe Organ Mechanic Relationship Specialty Start Date End Date Melany Abreu, FIELD CROP II FARMWORKER, TOY ELECTRIC TRAIN REPAIRER #[address] [address] PCP - General Advanced Practice Nurse 03/23/25 Ryan Figueroa MD #2 [place] [address] Consulting Physician Pulmonary Disease 01/29/23 Gene Russell MD #2 [place] [address] Consulting Physician Neurology 01/28/24 Ramírez Sin MD #[address] [address] Consulting Physician Urology 03/20/25
--- OUTSIDE RECORDS SUMMARY | 2025-04-07 15:23 | XMS_ITS | Clinical Summary ---
Author Organization [facility] Address [address] [place] [address] Care Team Providers Care Senior Devops Engineer Name Role Phone Melany Abreu FISH AND WILDLIFE BIOLOGIST Primary Care Provider Allergies Active Allergy Reactions [...] 1 tablet (137 mcg total) by mouth show card writer before breakfast 30 tablet 4 Active albuterol (PROAIR RESPICLICK) 90 mcg/actuation inhaler Inhale 2 puffs every 6 (six) hours as needed for wheezing 1 each 2 4 Active magnesium hydroxide (MILK OF MAGNESIA) suspension [...] dorsum. Will call with culture results - [place] skin care reviewed - Referral to Rheumatology [...] Overview (03/29/2024): Decreased libido;Recorded Elsewhere: No Location: [facility] Source: EHR Chronic: N Practice ID: [id number] Billable Time: 03:15:00 PM Intractable migraine without aura and without status migrainosus 06/20/2018 COPD (chronic obstructive pulmonary disease) (CM S/HCC) 02/10/2018 Overview (09/03/2022): COPD Allergic rhinitis 02/10/2018 Chronic constipation 02/10/2018 Chronic daily headache 02/10/2018 Depression 02/10/2018 History of Helicobacter pylori infection 018 History of pancreatitis 02/10/2018 JULIAN (obstructive sleep apnea) 02/10/2018 Overview (09/03/2022): Overview: ([facility] - repeated - at time patient [...] malnutrition Nonintractable migraine Lacunar infarction Substance use Encounters Date Type Department Care Team Description 04/03/2025 Telephone [facility] [address] [address] Evert Berg II, MD from Last 3 Months Immunizations Immunization Administration Dates Next Due Tdap 06/05/2016 Surgical History Surgery Date Site/Laterality Comments KNEE ARTHROPLASTY 2009 Knee replacement CHOLECYSTECTOMY 1986 Cholecystectomy OTHER SURGICAL HISTORY restless leg syn. ELBOW SURGERY 2008 right elbow surgery OTHER SURGICAL HISTORY arthroscopy [...] = 0.6 oz pur e alcohol) [facility] Utilities Answer Date Recorded In the past 12 months has th e electric, gas, oil, or water company threatened to shut off services in your home? No 03/29/2024 Social Connection and Isolation Panel Answer Date Recorded In a typical week, how many times do you talk on the phone with family, friends, or neighbors? Never 03/29/2024 How often do you get togethe r with friends or relatives? More than three times a week 03/29/2024 How often do you attend chur ch or taoist services? Never 03/29/2024 Do you belong to [...] time in the past 12 m [facility], were you homeless or living in a intermediate (including now)? No 03/29/2024 Personal Safety Answer Date Recorded Have you ever been in or are you currently in a harmful physical or emotional relationship or is someone making you feel afraid or unsafe? 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 Gender Identity Not on file Sexual [...] Screening-Mammogram 03/18/2021 020 Covid-19 Vaccine (2 - 2024- season) 04/02/202503/2021 Influenza Vaccine (#1) 2025 DTaP/Tdap/Td Vaccine (2 - Td or Tdap) 06/05/202611/2015 Colon Cancer Screening-CT Colonography Discontinued Colon Cancer Screening-DNA Stool Discontinued 06/19/20 10 Colon Cancer Screening-FIT Discontinued 06/19/2010 Colon Cancer Screening-Sigmoidoscopy Discontinued 06/02 Procedures Procedure Name Priority Date/Time Associated Diagnosis Comments COLONOSCOPY 06/19/2010 12:00 AM BOILER PLANT WORKER from Last 3 Months or Most Recently Relevant to Health Maintenance Results * COLONOSCOPY (06/19/2010 12:00 AM BOILER PLANT WORKER) Anatomical Region Laterality Modality Other Narrative 06/19/2010 12:00 AM BOILER PLANT WORKER Ordered by an unspecified provider. Procedure Note ProviderFloyd MD - 06/19/2010 12:00 AM CST PROCEDURE REPORT Patient: MARKEL DANIELS Account: [id number] Room No: : 1960 Patient Type: [facility] Attend.: Reece Ashton M.D. Admit Date: 06/19/2010 Dict.: Reece Ashton M.D. Disch. Date: PROCEDURE PERFORMED: Colonoscopy. HISTORY: 49-year-old female with a prior history of colonic polypspresently having alternating constipation and diarrhea. PHYSICAL EXAMINATION: Obese female. Lungs are clear. Cardiovascular examination was unremarkable. PROCEDURE: Colonoscopy was performed with the Solovis video endoscope.The patient was premedicated by anesthesia. [...] 5 years in light of past history. Marian Palafox TD: 06/20/2010 11:07 CC: Dr. Glenroy Power [place], [place] PROCEDURE REPORT Authenticated by Reece Ashton MD On 06/23/2010 07:33:00 AM us Historical Provider ENDOSCOPY PROCEDURES Shelby l Result from Last 3 Months or Most Recently Relevant to Health Maintenance Insurance DR [address] [place] [address] [address] [place] [address] [facility] [address] [place] [address] Advance Directives For more information, please contact: [phone] * Full Code (Latest Code Status on File) Date Activated Date Inactivated Comments 03/29/2024 4:20 AM 04/05/2024 6:34 PM * Full Code Date Activated Date Inactivated Comments 09/20/2020 3:43 AM 09/22/2020 5:29 PM Care Teams Senior Devops Engineer Relationship Specialty Start Date End Date Melany Abreu NP [address] [place] [address] PCP - General Nurse Practitioner 03/23/25
--- OUTSIDE RECORDS SUMMARY | 2025-04-07 15:23 | XMS_ITS | Encounter Summary ---
Author Organization [facility] Address [facility] [place] [address] Care Team Providers Care Hand Tapper Name Role Phone Glenroy Power DO Primary Care Provider [phone] Claudette Dangelo MD Primary Care Provider [phone] Claudette Dangelo MD Primary Care Provider [phone] Lianne Stack MD Primary Care Provider [phone] Reason for Visit * Reason Comments Refill Request Encounter Details Date Type Department Care Team (Late st Contact Info) Description 01/08/2020 Refill [facility] [address] [place] [address] Michelle Agee MD [address] [address] Refill Request Social History Tobacco Use Types Packs/Day Years Used Date Smoking Tobacco: Every Day Cigarettes 1 45 Smokeless Tobacco: Never Alcohol Use Standard Drinks/Week Comments Not Currently 0 (1 standard drink = 0.6 oz pur e alcohol) last drink 23 years ago Comments No Sex and Gender Information Value Date Recorded Sex Assigned at Not on file Legal 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 vitamin D, ergocalciferol, (DRISDOL) 1.25 MG (63354 UT) capsule [Pharmacy Med Name: VITAMIN D2 [...] psoriasis documented in this encounter Care Teams Hand Tapper Relationship Specialty Start Date End Date Glenroy Power DO [address] [facility] [address] [facility] [address] [place] [address] PCP - General 05/14/21 06/17/21 Claudette Dangelo MD [address] [place] [address] PCP - General 09/07/19 05/12/21 Claudette Dangelo MD [address] [place] [address] PCP - General 06/18/21 07/05/24 Lianne Stack MD [address] [facility] 8 [place] [address] PCP - General Family Medicine 07/06/24 documented as of this encounter
--- OUTSIDE RECORDS SUMMARY | 2025-04-07 15:23 | XMS_ITS | Clinical Summary ---
Author Organization [facility] Address [address] [place] [address] Care Team Providers Care Precision Jig Grinder Name Role Phone Glenroy Power MD Primary Care Provider [phone] Allergies Active Allergy Reactions Criticality Noted Date [...] vitamin D2, ergocalciferol, (VITAMIN D, ERGOCALCIFEROL, ) 32574 UNITS capsule Take 50,000 Units by mouth [...] 4:42 AM CDT Height 162.6 cm (5' 4) 11/18/2019 8:26 PM CDT Body Mass Index [...] COVID-19 Vaccine ( - 2023-2 5 season) 2025 DTaP, Tdap and Td Vaccines ( 2 [...] patient's age to complete this topic Insurance [place] Advance Directives * Full Code (Latest Code Status on File) Date Activated Date Inactivated Comments 11/18/2019 10:02 PM 11/22/2019 9:57 PM Care Teams Precision Jig Grinder Relationship Specialty Start Date End Date Glenroy Power MD [address] [place] [address] [place] [address] [place] [address] PCP - General INTERNAL MEDICINE 11/18/19
--- OUTSIDE RECORDS SUMMARY | 2025-04-07 15:23 | XMS_ITS | Patient Health Record ---
Author Organization [facility] Address [facility] [address] [facility] [[email or web address] [address] [place] [address] Care Team Providers Care Educational Aid Name Role Phone Doni Burton Unavailable [phone] Reason For Referral No Information Plan Of Treatment No Information
--- OUTSIDE RECORDS SUMMARY | 2025-04-07 15:23 | XMS_ITS | Encounter Summary ---
Author Organization [facility] Address [address] [place] [address] Phone Care Team Providers Care Java Tech Lead Name Role Phone Lianne Stack MD Primary Care Provider Ryan Figueroa MD Unavailable Gene Russell MD Unavailable [phone] Dorita Lacy APRN, [facility] Primary Care Provider [phone] Ramírez Sin MD Unavailable Melany Abreu APRN, [facility] Primary Care Provider Reason for Visit * Reason Comments Medication Refill Encounter Details Date Type Department Care Team (Late st Contact Info) Description 09/28/2023 Refill [facility] - Pulmonology & Sleep Medicine [facility] #[address] [place] [address] Ryan Figueroa MD [address] [place] [address] Medication Refill Social History Tobacco [...] Dept 08/05/23 Office Visit Ryan Figueroa MD [facility] 05/04/23 Office Visit Ryan Figueroa MD [facility] 01/29/23 Office Visit Ryan Figueroa MD [facility] & [facility] Showing recent visits within past 270 days and meeting all other requirements Future Appointments No visits were found meeting these conditions. Showing future appointments within next 90 days and meeting all other requirements Passed - Blood pressure on record in past 12 months Clinician-entered: BP Readings from Last 3 Encounters: 08/27/23 (!) 134/95 08/05/23 120/80 05/04/23 138/78 Patient-entered: No data recorded ESS HELPER documented in this encounter Plan of Treatment Upcoming Encounters Date Type Department Care Team (Late st Contact Info) Description 06/05/2025 2:00 PM PROCESS HELPER [facility] - [place] [facility] [facility] [place] [address] Ramo Raygoza MD [address] [place] [address] 10/01/2025 10:30 AM PROCESS HELPER Office Visit [facility] UR[facility]Y #2 [facility] [place] [address] Ramírez Sin MD #[address] [address] documented as of this encounter Visit Diagnoses Not on filedocumented in this encounter Additional Health Concerns Infection Onset Date Last Indicated Resolved Time COVID - 19 02/25/2024 02/25/2024 02/25/2024 4:10 AM CDT 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 02/25/2024 06/06/2024 9:53 AM PROCESS HELPER COVID - 19 06/03/2024 06/03/2024 06/03/2024 12:0 0 PM CDT COVID - 19 10/08/2024 10/08/2024 10/08/2024 9:00 PM CDT COVID - 19 10/23/2024 10/23/2024 10/23/2024 1:09 AM CDT documented as of this encounter Care Teams Java Tech Lead Relationship Specialty Start Date End Date Lianne Stack MD [address] [address] PCP - General Family Medicine 01/13/23 02/26/25 Dorita Lacy APRN, C SOFTWARE ENGINEER #[address] [place] [address] PCP - General Family Medicine 02/27/25 03/22/25 Melany Abreu APRN, C SOFTWARE ENGINEER [address] [address] [address] PCP - General Advanced Practice Nurse 03/23/25 Ryan Figueroa MD #[address] [place] [address] Consulting Physician Pulmonary Disease 01/29/23 Gene Russell MD #2 [place] [address] Consulting Physician Neurology 01/28/24 Ramírez Sin MD #[address] [address] Consulting Physician Urology 03/20/25 documented as of this encounter
--- OUTSIDE RECORDS SUMMARY | 2025-04-07 15:23 | XMS_ITS | Encounter Summary ---
Author Organization [facility] Address [address] [place] [address] Phone Care Team Providers Care Sole Rougher Name Role Phone Lianne [place] MD Primary Care Provider [phone] Ryan Figueroa MD Unavailable Gene [place] MD Unavailable [phone] Dorita Lacy APRN, [facility] Primary Care Provider [phone] Ramírez Sin MD Unavailable Melany Abreu APRN, [facility] Primary Care Provider Reason for Visit * Reason Comments Medication Refill Encounter Details Date Type Department Care Team (Late st Contact Info) Description 12/25/2023 Refill [facility] - Pulmonology & [facility] #2 [place] [address] Ryan Figueroa MD #[address] [place] [address] Medication Refill Social History Tobacco Use Types Packs/Day Years Used Date Smoking Tobacco: Every Day Cigarettes 1 25.7 Started: 2000 Alcohol Use Standard Drinks/Week Comments No 0 (1 standard drink = 0.6 oz pur e alcohol) [facility] Utilities Answer Date Recorded In the past 12 months has th e electric, gas, oil, or water [employer] threatened to shut off services in your home? Patient declined 12/15/2023 Social Connection and Isolation Panel Answer Date Recorded In a typical week, how many times do you talk on the phone with family, friends, or neighbors? Patient declined 12/15/2023 How often do you get togethe r with friends or relatives? Patient declined 12/15/2023 How often do you attend temple or protestant serv ices? Patient declined 12/15/2023 Do you [...] medical care, and heating? Patient declined 12/15/2023 [facility] - Occupational Stress Questionnaire Answer Date Recorded [...] a usp (including now)? Patient declined 12/15/2023 Sexually Active [...] AM CDT Medication(s) refilled and signed per [facility] Chronic [...] Ryan Figueroa MD [facility] [address] 08/05/23 Office Visit Ryan Figueroa MD [facility] [address] 05/04/23 Office Visit Ryan Figueroa MD [facility] [address] Showing recent visits within past 270 days and meeting all other requirements Future Appointments Date Type Provider Dept 01/03/24 Appointment Ryan Figueroa MD [facility] 03/06/24 Appointment Ryan Fig[facility]eroa MD [facility] Showing future appointments within next 90 days and meeting all other requirements Passed - Blood pressure on record in past 12 months Clinician-entered: BP Readings from Last 3 Encounters: 12/24/23 130/90 12/22/23 160/90 12/21/23 124/62 Patient-entered: No data recorded documented in this encounter Plan of Treatment Upcoming Encounters Date Type Department Care Team (Late st Contact Info) Description 06/05/2025 2:00 PM ANIMAL CARE TAKER [facility] Visit [facility] - [place] #2 [place] [address] Ramo Raygoza MD #2 [facility] [address] [place] [address] 10/01/2025 10:30 AM ANIMAL CARE TAKER Office Visit [facility] #2 [place] [address] Ramírez Sin MD #2 [facility] [address] [place] [address] documented as of this encounter Visit Diagnoses Diagnosis Restless legs syndrome (RLS) documented in this encounter Additional Health Concerns Infection Onset Date Last Indicated Resolved Time COVID - 19 02/25/2024 02/25/2024 02/25/2024 4:10 AM CDT 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 02/25/2024 06/06/2024 9:53 AM ANIMAL CARE TAKER COVID - 19 06/03/2024 06/03/2024 06/03/2024 12:0 0 PM CDT COVID - 19 10/08/2024 10/08/202410/0810/08/2024 9:00 PM CDT COVID - 19 10/23/2024 10/23/2024 10/23/2024 1:09 AM CDT documented as of this encounter Care Teams Sole Rougher Relationship Specialty Start Date End Date Lianne Stack MD [address] [place] [address] PCP - General Family Medicine 01/13/23 02/26/25 Dorita Lacy, LOAN CLOSER, PEARL MAKER #2 [place] [address] PCP - General Family Medicine 02/27/25 03/22/25 Melany Abreu LOAN CLOSER, PEARL MAKER #[facility] [address] [address] PCP - General Advanced Practice Nurse 03/23/25 Ryan Figueroa MD #2 [place] [address] Consulting Physician Pulmonary Disease 01/29/23 Gene Russell MD #2 [place] [address] Consulting Physician Neurology 01/28/24 Ramírez Sin MD [address] [address] Consulting Physician Urology 03/20/25 documented as of this encounter
[2025-04-07 15:24] VITALS: BP 137/95; PULSE 118; RESP 20; TEMP 36.6; O2SAT 100
--- OUTSIDE RECORDS SUMMARY | 2025-04-07 15:25 | XMS_ITS | Encounter Summary ---
Author Organization [facility] Address [address] [place] [address] Phone Care Team Providers Care Manager Mall Name Role Phone Lianne Stack MD Primary Care Provider [phone] Ryan Figueroa MD Unavailable Gene Russell MD Unavailable [phone] Dorita Lacy APRN, [facility] Primary Care Provider [phone] Ramírez Sin MD Unavailable [phone] Melany Abreu APRN, [facility] Primary Care Provider Encounter Details Date Type Department Care Team (Late st Contact Info) Description 04/05/2024 Home Health Resumpti on of Care Planning [facility] [address] [place] [address] Social History Tobacco Use Types Packs/Day Years Used Date Smoking Tobacco: Every Day Cigarettes 1 25.7 Started: 1999 Alcohol Use Standard Drinks/Week Comments No 0 (1 standard drink = 0.6 oz pur e alcohol) [facility] Utilities Answer Date Recorded In the past 12 months has e electric, gas, oil, or water company threatened to shut off services in your home? Patient declined 02/25/2024 Social Connection and Isolation Panel Answer Date Recorded In a typical week, how many times do you talk on the phone with family, friends, or neighbors? Patient declined 02/25/2024 How often do you get togethe r with friends or relatives? Patient declined 02/25/2024 How often do you attend alevism or religion serv ices? Patient declined 02/25/2024 Do you belong to any clubs o r organizations such as alevism groups, unions, fraternal or athletic groups, or [...] medical care, and heating? Patient declined 02/25/2024 [facility] - Occupational Stress Questionnaire Answer Date [...] place to sleep or slept in a intermediate (including now)? Patient declined 12/15/2023 Housing Stability [...] any time in the past 12 m [facility], were you homeless or living in a intermediate (including now)? Patient declined 02/25/2024 Sexually Active [...] st Contact Info) Description 06/05/2025 2:00 PM STEAM METER READER Office Visit [facility] - [place] #2 [place] [address] Ramo Raygoza MD #2 [facility] [address] [place] [address] 10/01/2025 10:30 AM STEAM METER READER Office Visit [facility]Y #2 [place] [address] Ramírez Sin MD #2 [facility] [address] [place] [address] documented as of this encounter Visit Diagnoses Not on filedocumented in this encounter Additional Health Concerns Infection Onset Date Last Indicated Resolved Time 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 02/25/2024 06/06/2024 9:53 AM STEAM METER READER COVID - 19 06/03/2024 06/03/2024 06/03/2024 12:0 0 PM CDT COVID - 19 10/08/2024 10/08/2024 10/08/2024 9:00 PM CDT COVID - 19 10/23/2024 10/23/2024 10/23/2024 1:09 AM CDT documented as of this encounter Care Teams Manager Mall Relationship Specialty Start Date End Date Lianne Stack MD [address] [id number] PCP - General Family Medicine 01/13/23 02/26/25 Dorita Lacy APRN, SENIOR LEAD DEVELOPER #2 [place] [address] PCP - General Family Medicine 02/27/25 03/22/25 Melany Abreu, FEED MILL TENDER, SENIOR LEAD DEVELOPER #[address] [address] PCP - General Advanced Practice Nurse 03/23/25 Ryan Figueroa MD #2 [place] [address] Consulting Physician Pulmonary Disease 01/29/23 Gene Russell MD #2 [place] [address] Consulting Physician Neurology 01/28/24 Ramírez Sin MD #[address] [address] Consulting Physician Urology 03/20/25 documented as of this encounter
--- NOTE | 2025-04-07 15:54 | ED.SKABFB ---
HPI - Skin/Abscess/Foreign Bdy General Chief complaint: Skin/Abscess/Foreign Body Stated complaint: rash by right ear Time Seen by Provider: 04/07/25 15:35 Source: patient and RN notes reviewed Mode of arrival: ambulatory Limitations: no limitations History of Present Illness HPI narrative: 64-year-old female presents Express Care complaining of rash near her right ear for the last 5 days. Patient said it started out as blisters near her right ear has spread to the top of her ear, patient states that it is mildly pruritic and she has been picking at it and states the rash is also painful. Patient describes the pain as a burning and throbbing sensation. Patient denies any hearing problems, tinnitus, vision problems, fevers, body aches, chills, upper respiratory symptoms, cough, or any other symptoms. Patient has not tried any [id number] to help with symptoms. Related Data Home Medications ?Medication ?Instructions ?Recorded ?Confirmed ?Last Taken ?Type albuterol sulfate 90 mcg/actuation 2 inh inhalation Q4-6H PRN 02/26/23 03/10/23 Unknown History aerosol inhaler (ProAir HFA) Shortness Of Breath atorvastatin 40 mg tablet mg 12/05/24 Unknown History docusate sodium 100 mg capsule mg PO 04/07/25 Unknown History Allergies Allergy/AdvReac Type Severity Reaction Status Date / Time sulfamethoxazole Allergy Mild JOINT Verified 04/07/25 15:30 SWELLING clarithromycin Allergy Unknown Swelling Verified 04/07/25 15:30 gabapentin Allergy Unknown Joint pain Verified 04/07/25 15:30 Influenza Virus Vaccines Allergy Unknown Unknown Verified 04/07/25 15:30 trimethoprim Allergy Unknown JOINT Verified 04/07/25 15:30 SWELLING codeine AdvReac Unknown NAUSEA - Verified 04/07/25 15:30 CAN TAKE LORTAB Review of Systems Review of Systems: CONSTITUTIONAL: Denies fever, chills, or sweats. EYES: Denies visual changes, redness, or discharge. ENT: Denies rhinorrhea, congestion, sore throat, or otalgia. CARDIOVASCULAR: Denies chest pain, palpitations, or edema. RESPIRATORY: Denies cough or dyspnea. GASTROINTESTINAL: Denies abdominal pain, nausea, vomiting, or diarrhea. GENITOURINARY: Denies dysuria or hematuria. SKIN: Positive for rash and itching. MUSCULOSKELETAL: Denies back pain, joint pain, or myalgia. NEUROLOGIC: Denies headache, numbness, or weakness. PSYCHIATRIC: Denies anxiety or depression. All other systems reviewed are negative, except as documented in HPI. [facility] Past Medical History Medical History Erosive gastritis Adenomatous colon polyp Nausea & vomiting GERD (gastroesophageal reflux disease) Chronic back pain Pancreatitis Diverticulosis Tracheostomy dependence COPD (chronic obstructive pulmonary disease) Peripheral neuropathy Seizures TIA (transient ischemic attack) Pneumonia Anxiety and depression Hypertension Hypothyroidism JULIAN (obstructive sleep apnea) Pulmonary emphysema Pure hypercholesterolemia Failure to thrive in adult Chemical dependency Surgical History Surgical History Hx of tonsillectomy Secondary to sepsis/ARDS Total knee replacement status Hx of cholecystectomy H/O neck surgery C6-7 fusion Family History Family History Sibling Patient's sister is in good health Patient's brother is in good health Depression Mother Family history of malignant neoplasm of breast in first degree relative, Onset Age: 26 Patient's mother is Father Patient's father is in good health Other Family history of alcoholism Family history of lung disease Family history of malignant neoplasm of male breast Family history of migraine headaches Family history of obesity Hypertension Social History Social History Social History: The patient continues to smoke 1/2 a pack of cigarettes per day. She lives home alone. She had 1 daughter who is now and she has two other children that her still living. She is currently seperated from her . She is disabled. Code status full code Smoking packs per day: 0.5 Smoking cigarettes per day: 10.0 Years smoked: 45 Smoking pack-years: 22.50 Smoking status: Current every day smoker Tobacco type: cigarettes Second hand tobacco smoke exposure: No Smoking end date: 08/02/15 Alcohol intake: former Alcohol use details: recovering alcoholic 1999 Substance use: former Substance use type: marijuana and methamphetamine Lack of Transportation: YES Lack of Food: Sometimes True Current Housing: I Have Housing Concerned About Future Housing: No Difficulty Paying Gas/Electric Bills: No Difficulty Paying for Meds: No Currently Unemployed: No Education: High School Diploma/GED Difficulty w/ Childcare or Family Care: No Living arrangements: alone Gender identity (if verbalized by the patient): Female Spiritual care concerns: No Comments At the time of my signature, I reviewed and agree with the nursing past medical, surgical, social, and family history. There is no relevant family history pertinent to the patient complaint. Exam Narrative: GENERAL: This is a well-nourished, well-developed adult, in no apparent distress. They are non ill-appearing, nontoxic appearing. HEAD: normocephalic, atraumatic. EYES: Sclera clear/white. Conjunctiva normal. Vision is grossly intact. Extraocular movements intact EARS: External ears normal, auditory canals clear and without drainage no suspicious lesions, rashes, or ulcerations to auditory canals, TMs normal without perforation. Hearing grossly intact. NOSE: External nose normal with no obvious nasal discharge, nasal turbinates without redness, no rhinorrhea. THROAT: Mucous membranes moist, posterior pharynx clear, without erythema or swelling. Uvula midline. NECK: Neck supple, non-tender without lymphadenopathy, masses or thyromegaly. CARDIOVASCULAR: Regular rate and rhythm without murmurs, gallops, or rubs. RESPIRATORY: Clear to auscultation. Breath sounds equal bilaterally. No wheezes, rales, or rhonchi. SKIN: Erythematous papular vesicular rash to the helix of the right auricle is crusty. Is tender to palpate. No exudate, no area of fluctuance, no induration. There is excoriated erythematous rash adjacent to the tragus in the right TMJ. No exudate, no area of fluctuance, no induration, no surrounding cellulitis. Mildly tender to palpate. Mild pruritus to the rashes. NEURO: awake, alert, and oriented to person, place and time. There were no obvious focal neurologic abnormalities. Cranial nerve 2-12 grossly intact. No facial droop. Speech is clear. Tongue is midline. EXTREMITIES: No joint tenderness, effusion, or edema noted. Course Course Emergency Course: Portions of this record may have been created with voice recognition software Level of Care: Express Care Visit Vital Signs Vital signs: Vital Signs Temperature 97.9 F 04/07/25 15:24 Pulse Rate 118 H 04/07/25 15:24 Respiratory Rate 20 04/07/25 15:24 Blood Pressure 137/95 H 04/07/25 15:24 Pulse Oximetry 100 04/07/25 15:24 Oxygen Delivery Nasal Cannula 04/07/25 15:24 Oxygen Flow Rate 4 04/07/25 15:24 Temperature 97.9 F 04/07/25 15:24 Pulse Rate 118 H 04/07/25 15:24 Respiratory Rate 20 04/07/25 15:24 Blood Pressure 137/95 H 04/07/25 15:24 Pulse Oximetry 100 04/07/25 15:24 Oxygen Delivery Nasal Cannula 04/07/25 15:24 Oxygen Flow Rate 4 04/07/25 15:24 Reviewed MDM - Skin/Abscess/Foreign Bdy MDM Narrative Medical decision making narrative: Patient may have herpes zoster. Low suspicion for and she had syndrome, no rash present auditory canal, no tinnitus, no hearing problems, no ipsilateral facial paralysis. Go ahead and treat with acyclovir along pure sent ointment for infection prevention since skin is score excoriated from picking. Discussed physical exam findings. Advised supportive measures and signs/symptoms to go to the ER. Pt is appropriate for outpt treatment and f/u. Differential Diagnosis Differential diagnosis: Likely herpes zoster, cellulitis, eczema, impetigo and contact dermatitis Critical Care Time Critical Care Time Critical Care Time: No Discharge Plan Discharge Clinical Impression: Herpes zoster Qualifiers: Herpes zoster complications: without complications Qualified Code(s): B02.9 - Zoster without complications Patient Disposition: Home Condition: Stable Instructions: Antibiotic Form, Impetigo (ED), Shingles (ED) Additional Instructions: Take valacyclovir as directed. Apply mupirocin ointment to the affected area as directed. Wash the skin daily with mild soap and water. Follow-up with PCP in 3-5 days. He developed worsening redness, swelling, pain, hearing problems, ringing in ears, vision problems, worsening rash, or any serious concerns please return to the ER immediately. Patient Language: Vietnamese Prescriptions: New mupirocin calcium 2 % cream 1 applic topical BID 7 Days Qty: 30 0RF Rx Instructions: Apply to the affected area. valacyclovir [Valtrex] 1 gram tablet 1,000 mg PO TID 7 Days Qty: 21 0RF No Action atorvastatin 40 mg tablet docusate sodium 100 mg capsule PO albuterol sulfate [ProAir HFA] 90 mcg/actuation HFA aerosol inhaler 2 inh inhalation Q4-6H PRN (Reason: Shortness Of Breath) amlodipine 5 mg tablet 5 mg PO DAILY Qty: 30 5RF cyclobenzaprine 10 mg tablet 10 mg PO HS PRN (Reason: muscle spasm) Qty: 20 0RF Rx Instructions: must last 30 days levothyroxine 125 mcg tablet 125 mcg PO DAILY Qty: 90 0RF Follow-up/Referrals: Sreekanth,Lianne Byrne MD [Primary Care Provider, [facility]] Time of Disposition: 15:54
== END 2025-04-07 15:58 | disposition home or self-care (01) ==
PROVIDERS: PCP Family Medicine
DX: B02.9 Zoster without complications (principal); Z87.891 Personal history of nicotine dependence; I10 Essential (primary) hypertension; J44.9 Chronic obstructive pulmonary disease, unspecified; Z93.0 Tracheostomy status; E03.9 Hypothyroidism, unspecified; E78.00 Pure hypercholesterolemia, unspecified; G62.9 Polyneuropathy, unspecified; K21.9 Gastro-esophageal reflux disease without esophagitis; Z86.73 Personal history of transient ischemic attack (TIA), and cerebral infarction without residual deficits
CPT/HCPCS: 99213; G0463